=== PATIENT | female | born 1990 | race American Indian/Alaskan Native ===

== ENCOUNTER 2017-10-03 18:24 | Emergency (ER) | payer MEDICARE ==
[2017-10-03 21:38] LABS: Calcium 9.1 mg/dL (8.4-10.2)
[2017-10-03 22:10] LABS: Hematocrit 27.7 % (30.3-42.9); Hemoglobin 8.8 gm/dl (10.1-14.3); Mean Corpuscular HGB Conc 32 % (30-34); Mean Corpuscular Hemoglobin 30 pg (28-32); Mean Corpuscular Volume 94 fl (79-97); Platelet Count 227 K/mm3 (140-440); Red Blood Count 2.94 M/mm3 (3.65-5.03); Red Cell Distribution Width 18.6 % (13.2-15.2)
--- NOTE | 2017-10-04 07:17 | Emergency Department Report ---
HPI - General Chief Complaint: Medical Clearance Time Seen by Provider: 10/04/17 07:01 - HPI HPI: This is a 27-year-old female presents to the emergency department, sent in by a nurse at her dialysis center, with concern for low hemoglobin. The patient is end-stage renal disease on hemodialysis on Friday//Friday and had dialysis on . She was called yesterday, Friday, and told that her hemoglobin was 6.8 and that it would be too low for them to transfuse her today , Friday, and to go to the emergency department. Her social contact worker is Dr. Owens. She gets dialysis at [address] [place] [address]. She also has a past nuchal history of hypertension, asthma and lupus. She complains of some mild shortness of breath but denies any fever, cough, chest pain, nausea, vomiting or diaphoresis. No recent travel or sick contacts at home. ED Past Medical Hx - Past Medical History Hx Hypertension: Yes Hx Renal Disease: Yes (HD-graft in right arm(T,TH,SAT)) Hx Asthma: Yes Additional medical history: Lupus - Surgical History Additional Surgical History: graft - Social History Smoking Status: Current Every Day Smoker Substance Use Type: None ED Review of Systems ROS: Stated complaint: LOW BLOOD COUNT Other details as noted in HPI Comment: All other systems reviewed and negative Constitutional: denies: chills, fever Eyes: denies: eye pain, eye discharge, vision change ENT: denies: ear pain, throat pain Respiratory: shortness of breath. denies: cough Cardiovascular: denies: chest pain, palpitations Gastrointestinal: denies: abdominal pain, nausea, diarrhea Genitourinary: denies: urgency, dysuria, discharge Musculoskeletal: denies: back pain, joint swelling, arthralgia Skin: denies: rash, lesions Neurological: denies: headache, weakness, paresthesias Physical Exam - Physical Exam Vital Signs: Vital Signs 10/03/17 20:41 Temperature 97.9 F Pulse Rate 79 Respiratory 18 Rate Blood Pressure 162/96 O2 Sat by Pulse 100 Oximetry Physical Exam: GENERAL: The patient is well-developed well-nourished. HENT: Normocephalic. Atraumatic. Patient has moist mucous membranes. EYES: Extraocular motions are intact. Pupils equal reactive to light bilaterally. NECK: Supple. Trachea is midline. CHEST/LUNGS: Clear to auscultation. There is no respiratory distress noted. HEART/CARDIOVASCULAR: Regular. There is no tachycardia. There is no murmur. ABDOMEN: Abdomen is soft, nontender. Patient has normal bowel sounds. There is no abdominal distention. SKIN: Skin is warm and dry. NEURO: The patient is awake, alert, and oriented. The patient is cooperative. The patient has no focal neurologic deficits. The patient has normal speech. MUSCULOSKELETAL: There is no tenderness or deformity. There is no limitation range of motion. There is no evidence of acute injury. ED Course Vital Signs 10/03/17 20:41 Temperature 97.9 F Pulse Rate 79 Respiratory 18 Rate Blood Pressure 162/96 O2 Sat by Pulse 100 Oximetry - Consultations Consultation #1: I spoke with the social contact worker, Dr. Matthew, who is covering for Dr. Owens, who listened to the patient's current hemoglobin, the case presentation, and recommends that the patient be discharged to go to her dialysis appointment this morning as previously scheduled. 10/04/17 08:02 ED Medical Decision Making - Lab Data Result diagrams: 10/03/17 20:50 10/03/17 20:50 - Radiology Data Radiology results: image reviewed interpreted by me: Chest x-ray does not show any acute process. There are no pleural effusions, obvious pneumonia and there is no pneumothorax. - Medical Decision Making Patient presents after she was told to come to the emergency department by her dialysis center for a low hemoglobin of 6.8. It is unknown whether this lab value was from last Friday or , but rechecking the complete blood count today shows a hemoglobin of 8.8. The patient does not have any significant electrolyte abnormalities. Chest x-ray does not show any acute process including no signs of volume overload. Her vital signs are stable throughout her ED course including being afebrile and the patient does not appear in any respiratory distress. I spoke with the nephrology service who says the patient should be discharged to go to her dialysis session today. All this was explained to the patient understands and agrees to the plan. - Differential Diagnosis CHF, Hyperkalemia, symptomatic anemia Critical Care Time: No Critical care attestation.: If time is entered above; I have spent that time in minutes in the direct care of this critically ill patient, excluding procedure time. ED Disposition Clinical Impression: ESRD on dialysis Anemia in CKD (chronic kidney disease) Qualifiers: Chronic kidney disease stage: on chronic dialysis Qualified Code(s): N18.6 - End stage renal disease Disposition: DC- TO HOME OR SELFCARE Is pt being admited?: No Condition: Stable Instructions: Chronic Kidney Disease (ED) Additional Instructions: Please go and get dialysis today as previously scheduled. Follow-up with your social contact worker. Return to the emergency Department with any acute distress. Referrals: PRIMARY CARE, [Primary Care Provider] - SREEDHAR CARRERA MD [Staff Physician] - [facility] Time of Disposition: 07:44
[2017-10-04 11:05] VITALS: BP 165/106
--- NOTE | 2017-10-04 12:16 | XRay Report ---
FINAL REPORT EXAM: XR CHEST ROUTINE 2V HISTORY: SOB TECHNIQUE: Frontal and lateral chest radiographs. PRIORS: None. FINDINGS: The cardiac silhouette is mildly enlarged. There is suggestion of mild central pulmonary vascular congestion. No focal consolidation. No pleural effusion. No pneumothorax. No acute osseous abnormality. IMPRESSION: Mild cardiomegaly with findings suggesting mild central pulmonary vascular congestion.
== END 2017-10-04 08:10 | disposition home or self-care (01) ==
LOC: ED 18:24
DX: I12.0 Hypertensive chronic kidney disease with stage 5 chronic kidney disease or end stage renal disease (principal); N18.6 End stage renal disease; J45.909 Unspecified asthma, uncomplicated; F17.200 Nicotine dependence, unspecified, uncomplicated; Z99.2 Dependence on renal dialysis; Z88.1 Allergy status to other antibiotic agents; Z88.8 Allergy status to other drugs, medicaments and biological substances
CPT/HCPCS: 36415; 71046; 80048; 85027; 86850; 86870; 86900; 86901

== ENCOUNTER 2017-10-22 05:51 | Emergency (ER) | payer MEDICARE ==
[2017-10-22] MEDS ORDERED: ATIVAN ONE (06:26)
[2017-10-22] MEDS ORDERED: ATIVAN IM ONE (06:50)
[2017-10-22] MEDS ORDERED: KEPPRA PO ONE (06:55)
--- NOTE | 2017-10-22 06:55 | Emergency Department Report ---
ED Seizure HPI - General Chief Complaint: Seizure Stated Complaint: SEIZURE Time Seen by Provider: 10/22/17 06:40 Source: EMS Mode of arrival: Stretcher Limitations: No Limitations - History of Present Illness Initial Comments: Patient is a 27-year-old female history of end-stage renal disease on dialysis, history of seizure. Patient brought by EMS in active seizure that it started this morning. I have seen this patient several times before for the same complaint seizure usually starts immediately or the next day after DIALYSIS. Patient denied any new fever, she stated that she's been taking her medication as she is supposed to. MD Complaint: seizure -: Sudden Description of Episode: tonic-clonic movement, bowel incontinence, post-event confusion Witnessed:: Yes Seizure History: known seizure disorder Place: home Possible Precipitating Event: none Associated Symptoms: denies other symptoms Treatments Prior to Arrival: none - Related Data Home Medications Medication Instructions Recorded Confirmed Last Taken cloNIDine [Catapres] 0.3 mg PO TID 10/09/17 10/22/17 10/21/17 levETIRAcetam [Keppra TAB] 750 mg PO TID 10/09/17 10/22/17 10/19/17 Previous Rx's Medication Instructions Recorded Last Taken Type ALBUTEROL Inhaler [ProAir HFA 1 puff IH Q4H PRN 30 Days inha 09/05/17 10/21/17 Rx Inhaler] Furosemide [Lasix] 80 mg PO QDAY #30 tablet 09/05/17 10/21/17 Rx Phenytoin [Dilantin] 100 mg PO QHS #30 capsule.er 09/05/17 10/21/17 Rx hydrALAZINE [Apresoline TAB] 25 mg PO TID 30 Days tablet 09/05/17 10/21/17 Rx traMADol [Ultram 50 MG tab] 50 mg PO Q8H PRN #14 tablet 09/05/17 Unknown Rx predniSONE [Deltasone] 10 mg PO QDAY tablet 10/09/17 10/19/17 Rx Allergies Allergy/AdvReac Type Severity Reaction Status Date / Time acetaminophen [From Percocet] Allergy Itching Verified 10/22/17 06:50 metoprolol Allergy Unknown Verified 10/22/17 06:50 oxycodone [From Percocet] Allergy Itching Verified 10/22/17 06:50 oxycodone HCl [From Percocet] AdvReac Unknown Verified 10/22/17 06:50 ED Review of Systems ROS: Stated complaint: SEIZURE Other details as noted in HPI Comment: All other systems reviewed and negative Constitutional: denies: chills, fever Respiratory: denies: cough, orthopnea, shortness of breath Gastrointestinal: denies: abdominal pain, nausea, vomiting, diarrhea Neurological: denies: headache, weakness, numbness ED Past Medical Hx - Past Medical History Previous Medical History?: Yes Hx Hypertension: Yes Hx Heart Attack/AMI: No Hx Congestive Heart Failure: No Hx Diabetes: No Hx Deep Vein Thrombosis: No Hx Pulmonary Embolism: No Hx Liver Disease: No Hx Renal Disease: Yes Hx Sickle Cell Disease: No Hx Arthritis: Yes Hx Headaches / Migraines: Yes (3 nights) Hx Seizures: Yes Hx Kidney Stones: No Hx Asthma: Yes Hx COPD: No Hx Dementia: No Additional medical history: Lupus - Surgical History Past Surgical History?: Yes Hx Coronary Stent: No Hx Pacemaker: No Hx Internal Defibrillator: No Additional Surgical History: graft - Social History Smoking Status: Never Smoker Substance Use Type: None - Medications Home Medications: Home Medications Medication Instructions Recorded Confirmed Last Taken Type ALBUTEROL Inhaler [ProAir HFA 1 puff IH Q4H PRN 30 Days inha 09/05/17 10/22/17 10/21/17 Rx Inhaler] Furosemide [Lasix] 80 mg PO QDAY #30 tablet 09/05/17 10/22/17 10/21/17 Rx Phenytoin [Dilantin] 100 mg PO QHS #30 capsule.er 09/05/17 10/22/17 10/21/17 Rx hydrALAZINE [Apresoline TAB] 25 mg PO TID 30 Days tablet 09/05/17 10/22/17 Rx traMADol [Ultram 50 MG tab] 50 mg PO Q8H PRN #14 tablet 09/05/17 10/22/17 Unknown Rx cloNIDine [Catapres] 0.3 mg PO TID 10/09/17 10/22/17 10/21/17 History levETIRAcetam [Keppra TAB] 750 mg PO TID 10/09/17 10/22/17 10/19/17 History predniSONE [Deltasone] 10 mg PO QDAY tablet 10/09/17 10/22/17 10/19/17 Rx ED Physical Exam - General Limitations: No Limitations General appearance: alert, other (active seizure when patient presented to the ER) - Head Head exam: Present: atraumatic, normocephalic, normal inspection - Eye Eye exam: Present: normal appearance, PERRL - ENT ENT exam: Present: normal exam, normal orophraynx, mucous membranes moist - Neck Neck exam: Present: normal inspection, full ROM. Absent: tenderness, meningismus, lymphadenopathy - Respiratory Respiratory exam: Present: normal lung sounds bilaterally. Absent: respiratory distress, wheezes, rales, rhonchi, stridor, chest wall tenderness, accessory muscle use, decreased breath sounds, prolonged expiratory - Cardiovascular Cardiovascular Exam: Present: regular rate, normal rhythm, normal heart sounds - GI/Abdominal GI/Abdominal exam: Present: soft, normal bowel sounds. Absent: distended, tenderness, guarding, rebound, rigid, organomegaly, mass, bruit, pulsatile mass , hernia - Extremities Exam Extremities exam: Present: normal inspection, full ROM - Back Exam Back exam: Present: normal inspection - Neurological Exam Neurological exam: Present: alert, oriented X3, CN II-XII intact, normal gait - Skin Skin exam: Present: warm, intact, normal color. Absent: cyanosis, diaphoretic ED Course Vital Signs 10/22/17 06:44 Temperature 98.0 F Pulse Rate 89 Blood Pressure 135/95 O2 Sat by Pulse 100 Oximetry - Reevaluation(s) Reevaluation #1: 10/22/17 13:36 Discussed with Naomie, nurse practitioner was Dr. Garcia. I informed him about the patient in she stated that she will let Dr. Hardin know about the patient. ED Medical Decision Making - Lab Data Result diagrams: 10/22/17 09:09 10/22/17 09:09 - EKG Data -: EKG Interpreted by Me EKG shows normal: sinus rhythm - EKG Data Interpretation: no acute changes - Medical Decision Making Patient observed in the ER for more than 6 hour now, no seizure observed in the ER. 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 Critical care attestation.: If time is entered above; I have spent that time in minutes in the direct care of this critically ill patient, excluding procedure time. ED Disposition Clinical Impression: Seizure Disposition: DC-01 TO HOME OR SELFCARE Is pt being admited?: No Condition: Stable Referrals: EILEEN FERNANDEZ MD [Primary Care Provider] - 3-5 Days
[2017-10-22 09:34] LABS: Basophils % (Auto) 0.8 % (0.0-1.8); Eosinophils # (Auto) 0.1 K/mm3 (0.0-0.4); Eosinophils % (Auto) 2.5 % (0.0-4.3); Hematocrit 25.7 % (30.3-42.9); Hemoglobin 8.2 gm/dl (10.1-14.3); Lymphocytes # (Auto) 1.1 K/mm3 (1.2-5.4); Lymphocytes % (Auto) 24.4 % (13.4-35.0); Mean Corpuscular HGB Conc 32 % (30-34); Mean Corpuscular Hemoglobin 29 pg (28-32); Mean Corpuscular Volume 91 fl (79-97); Monocytes # (Auto) 0.5 K/mm3 (0.0-0.8); Monocytes % (Auto) 11.3 % (0.0-7.3); Platelet Count 289 K/mm3 (140-440); Red Blood Count 2.83 M/mm3 (3.65-5.03); Red Cell Distribution Width 17.2 % (13.2-15.2)
[2017-10-22 09:49] LABS: Alanine Aminotransferase 9 units/L (7-56); Albumin 3.3 g/dL (3.9-5); BUN/Creatinine Ratio 3; Blood Urea Nitrogen 18 mg/dL (7-17); Hemolysis Index 4
[2017-10-22 16:40] VITALS: BP 143/86
== END 2017-10-22 14:15 | disposition home or self-care (01) ==
LOC: ED 05:51
DX: R56.9 Unspecified convulsions (principal); I10 Essential (primary) hypertension; G43.909 Migraine, unspecified, not intractable, without status migrainosus; J45.909 Unspecified asthma, uncomplicated
CPT/HCPCS: 36415; 80053; 85025; 93005; 93010; 96372; 99284; J2060

== ENCOUNTER 2017-12-01 03:17 | Emergency (ER) | payer MEDICARE ==
[2017-12-01 04:17] LABS: Basophils % (Auto) 0.4 % (0.0-1.8); Eosinophils # (Auto) 0.2 K/mm3 (0.0-0.4); Eosinophils % (Auto) 3.3 % (0.0-4.3); Hematocrit 25.9 % (30.3-42.9); Hemoglobin 8.2 gm/dl (10.1-14.3); Lymphocytes # (Auto) 0.7 K/mm3 (1.2-5.4); Lymphocytes % (Auto) 13.2 % (13.4-35.0); Mean Corpuscular HGB Conc 32 % (30-34); Mean Corpuscular Hemoglobin 29 pg (28-32); Mean Corpuscular Volume 91 fl (79-97); Monocytes # (Auto) 0.6 K/mm3 (0.0-0.8); Platelet Count 324 K/mm3 (140-440); Red Blood Count 2.84 M/mm3 (3.65-5.03)
[2017-12-01 04:32] LABS: Albumin 3.2 g/dL (3.9-5); BUN/Creatinine Ratio 3; Blood Urea Nitrogen 25 mg/dL (7-17); Calcium 9.4 mg/dL (8.4-10.2); Hemolysis Index 3
[2017-12-01 04:35] LABS: Alanine Aminotransferase < 5 units/L (7-56)
[2017-12-01 04:38] LABS: Red Cell Distribution Width 20.1 % (13.2-15.2)
[2017-12-01] MEDS ORDERED: ZOFRAN ODT PO ONE (06:50)
--- NOTE | 2017-12-01 07:04 | Emergency Department Report ---
HPI - General Chief Complaint: Nausea/Vomiting/Diarrhea Time Seen by Provider: 12/01/17 06:33 - HPI HPI: 27-year-old female presents to the emergency department with complaint of some nausea, vomiting, body aches and dizziness that started late last night. She says that she was unable to eat her breakfast this morning because of these symptoms and felt like she might pass out. She says that she was "shaking in my bed" and that I was was calling out for her grandmother but she did not hear her at first but eventually EMS was called. She denies any fever, shortness of breath, chest pain. She has a history of end-stage renal disease on hemodialysis on Friday//Friday., Migraine headaches, hypertension, seizures, lupus. Her mds rn is Dr. Owens. She does currently have a primary care physician. Patient was recently admitted and discharged from [facility] on 11/24 - 11/25 with a history of uncontrolled blood pressure, nausea, vomiting. ED Past Medical Hx - Past Medical History Previous Medical History?: Yes Hx Hypertension: Yes Hx Heart Attack/AMI: No Hx Congestive Heart Failure: No Hx Diabetes: No Hx Deep Vein Thrombosis: No Hx Pulmonary Embolism: No Hx Liver Disease: No Hx Renal Disease: Yes Hx Sickle Cell Disease: No Hx Arthritis: Yes Hx Headaches / Migraines: Yes Hx Seizures: Yes Hx Kidney Stones: No Hx Asthma: Yes Hx COPD: No Hx Dementia: No Additional medical history: Lupus - Surgical History Past Surgical History?: Yes Hx Coronary Stent: No Hx Pacemaker: No Hx Internal Defibrillator: No Additional Surgical History: graft - Social History Smoking Status: Never Smoker Substance Use Type: None - Medications Home Medications: Home Medications Medication Instructions Recorded Confirmed Last Taken Type ALBUTEROL Inhaler [ProAir HFA 1 puff IH Q4H PRN 30 Days inha 09/05/17 11/24/17 10/21/17 Rx Inhaler] Furosemide [Lasix] 80 mg PO QDAY #30 tablet 09/05/17 11/24/17 10/21/17 Rx Phenytoin [Dilantin] 100 mg PO QHS #30 capsule.er 09/05/17 11/24/17 10/21/17 Rx hydrALAZINE [Apresoline TAB] 25 mg PO TID 30 Days tablet 09/05/17 11/24/17 Rx cloNIDine [Catapres] 0.3 mg PO TID 10/09/17 11/24/17 11/23/17 History levETIRAcetam [Keppra TAB] 750 mg PO TID 10/09/17 11/24/17 10/19/17 History predniSONE [Deltasone] 10 mg PO QDAY tablet 10/09/17 11/24/17 10/19/17 Rx Labetalol [Normodyne TAB] 200 mg PO TID 11/24/17 11/24/17 11/23/17 History ALBUTEROL NEB's [Proventil 0.083% 2.5 mg IH Q4HRT PRN #100 nebu 11/25/17 Unknown Rx NEBS] cloNIDine [Catapres] 0.3 mg PO TID tablet 11/25/17 Unknown Rx diphenhydrAMINE [Benadryl CAP] 25 mg PO QID PRN capsule 11/25/17 Unknown Rx hydrALAZINE [Apresoline TAB] 25 mg PO TID tablet 11/25/17 Unknown Rx Ondansetron [Zofran Odt] 4 mg PO Q8H PRN #10 tab.rapdis 12/01/17 Unknown Rx traMADol [Ultram 50 MG tab] 50 mg PO Q8H PRN #10 tablet 12/01/17 Unknown Rx ED Review of Systems ROS: Stated complaint: FLU SX Other details as noted in HPI Comment: All other systems reviewed and negative Constitutional: denies: chills, fever Eyes: denies: eye pain, eye discharge, vision change ENT: denies: ear pain, throat pain Respiratory: denies: cough, shortness of breath, wheezing Cardiovascular: denies: chest pain, palpitations Gastrointestinal: abdominal pain, nausea, vomiting Genitourinary: denies: urgency, dysuria, discharge Musculoskeletal: denies: back pain, joint swelling, arthralgia Skin: denies: rash, lesions Neurological: other (dizziness). denies: headache, weakness Physical Exam - Physical Exam Vital Signs: Vital Signs 12/01/17 03:50 Temperature 99.0 F Pulse Rate 64 Respiratory 17 Rate Blood Pressure 167/108 O2 Sat by Pulse 99 Oximetry ED Course Vital Signs 12/01/17 03:50 Temperature 99.0 F Pulse Rate 64 Respiratory 17 Rate Blood Pressure 167/108 O2 Sat by Pulse 99 Oximetry ED Medical Decision Making - Lab Data Result diagrams: 12/01/17 04:02 12/01/17 04:02 - EKG Data -: EKG Interpreted by Me EKG shows normal: sinus rhythm, axis (borderline left axis deviation), intervals , QRS complexes (LVH), ST-T waves Rate: normal - EKG Data When compared to previous EKG there are: no significant change Interpretation: unchanged when compared t (10/16/17) Critical care attestation.: If time is entered above; I have spent that time in minutes in the direct care of this critically ill patient, excluding procedure time. ED Disposition Clinical Impression: ESRD (end stage renal disease), Body aches Nausea & vomiting Qualifiers: Vomiting type: unspecified Vomiting Intractability: non-intractable Qualified Code(s): R11.2 - Nausea with vomiting, unspecified HTN (hypertension) Qualifiers: Hypertension type: essential hypertension Qualified Code(s): I10 - Essential ( primary) hypertension Disposition: TO HOME OR SELFCARE Is pt being admited?: No Condition: Stable Instructions: Chronic Kidney Disease (ED), Musculoskeletal Pain (ED), Acute Nausea and Vomiting (ED), Hypertension (ED) Additional Instructions: Please follow up with a primary care physician in the next few days. I have given him multiple different referrals for primary care. Please continue with her normal dialysis regiment and follow-up with your mds rn/kidney doctor. Return to the emergency Department with any worsening of your symptoms or any acute distress. You have been prescribed a medication that is sedating and therefore should not be taken prior to driving, working, and responsible for children and in no way should be mixed with alcohol of any quantity. Please make sure to take your blood pressure medication. Try and stay away from foods that are high in salt caffeinated products to help with her blood pressure. Keep a blood pressure log. Prescriptions: Ondansetron [Zofran Odt] 4 mg PO Q8H PRN #10 tab.rapdis PRN Reason: Nausea traMADol [Ultram 50 MG tab] 50 mg PO Q8H PRN #10 tablet PRN Reason: Pain Referrals: EILEEN FERNANDEZ MD [Primary Care Provider] - 3-5 Days NIRMALA GALVAN MD [Staff Physician] - 3-5 Days [facility] [Outside] - 3-5 Days SREEDHAR MENJIVAR MD [Staff Physician] - [facility] Time of Disposition: 12:14
[2017-12-01] MEDS ORDERED: ULTRAM PO ONE (07:54)
--- NOTE | 2017-12-01 08:28 | XRay Report ---
ABDOMINAL SERIES: History: Abdominal pain. Compared to the abdominal x-rays performed 11/24/17. Single view of the chest demonstrates mild cardiomegaly and central pulmonary venous congestion which appears slightly improved since the previous exam. No evidence for pneumonia, CHF or pneumothorax. Upright and decubitus views of the abdomen demonstrate moderate stool in the colon. No evidence for dilated bowel, fluid levels or pathologic calcifications. The bony structures are intact. IMPRESSION: Mild cardiomegaly and pulmonary venous congestion. Mild fecal retention. No acute abdominal process identified.
[2017-12-01] MEDS ORDERED: ZOFRAN IV ONE (09:42)
[2017-12-01 13:10] VITALS: BP 167/99
== END 2017-12-01 13:12 | disposition home or self-care (01) ==
LOC: ED 03:17
DX: I12.0 Hypertensive chronic kidney disease with stage 5 chronic kidney disease or end stage renal disease (principal); N18.6 End stage renal disease; M79.1 Myalgia; R42 Dizziness and giddiness; M19.90 Unspecified osteoarthritis, unspecified site; G43.909 Migraine, unspecified, not intractable, without status migrainosus; M32.9 Systemic lupus erythematosus, unspecified; Z99.2 Dependence on renal dialysis; Z88.6 Allergy status to analgesic agent; Z88.5 Allergy status to narcotic agent
CPT/HCPCS: 36415; 74022; 80053; 84443; 84484; 84703; 85025; 93005; 93010; 96374; 99284; J2405; Q0162

== ENCOUNTER 2018-01-01 16:23 | Inpatient (IN) | payer MEDICARE ==
[2018-01-01] MEDS ORDERED: ATIVAN ONE (16:53)
[2018-01-01] MEDS ORDERED: ATIVAN IV ONE (16:57)
[2018-01-01] MEDS ORDERED: APRESOLINE IV ONE ×2 (16:58→20:00)
[2018-01-01] MEDS ORDERED: APRESOLINE ONE (16:59)
--- NOTE | 2018-01-01 17:03 | Emergency Department Report ---
ED Seizure HPI - General Stated Complaint: SEIZURES Time Seen by Provider: 01/01/18 16:56 - History of Present Illness Initial Comments: Patient is 27-year-old female with history of end-stage renal disease on hemodialysis, lupus and seizure. Patient brought in by EMS with active grand mal seizure. Patient patient is actively seizing. Patient received 10 mg of Versed intranasally because EMS could not get venous access. Patient just finished dialysis. MD Complaint: seizure -: Sudden Description of Episode: loss of consciousness, tonic-clonic movement, post- event confusion Witnessed:: Yes Trauma: No Seizure History: known seizure disorder Place: street/outdoors Possible Precipitating Event: none Treatments Prior to Arrival: benzodiazepines - Related Data Home Medications Medication Instructions Recorded Confirmed Last Taken cloNIDine [Catapres] 0.3 mg PO TID 10/09/17 11/24/17 11/23/17 levETIRAcetam [Keppra TAB] 750 mg PO TID 10/09/17 11/24/17 10/19/17 Labetalol [Normodyne TAB] 200 mg PO TID 11/24/17 11/24/17 11/23/17 Previous Rx's Medication Instructions Recorded Last Taken Type ALBUTEROL Inhaler [ProAir HFA 1 puff IH Q4H PRN 30 Days inha 09/05/17 10/21/17 Rx Inhaler] Furosemide [Lasix] 80 mg PO QDAY #30 tablet 09/05/17 10/21/17 Rx Phenytoin [Dilantin] 100 mg PO QHS #30 capsule.er 09/05/17 10/21/17 Rx hydrALAZINE [Apresoline TAB] 25 mg PO TID 30 Days tablet 09/05/17 11/23/17 Rx predniSONE [Deltasone] 10 mg PO QDAY tablet 10/09/17 10/19/17 Rx ALBUTEROL NEB's [Proventil 0.083% 2.5 mg IH Q4HRT PRN #100 nebu 11/25/17 Unknown Rx NEBS] cloNIDine [Catapres] 0.3 mg PO TID tablet 11/25/17 Unknown Rx diphenhydrAMINE [Benadryl CAP] 25 mg PO QID PRN capsule 11/25/17 Unknown Rx hydrALAZINE [Apresoline TAB] 25 mg PO TID tablet 11/25/17 Unknown Rx Ondansetron [Zofran Odt] 4 mg PO Q8H PRN #10 tab.rapdis 12/01/17 Unknown Rx traMADol [Ultram 50 MG tab] 50 mg PO Q8H PRN #10 tablet 12/01/17 Unknown Rx Allergies Allergy/AdvReac Type Severity Reaction Status Date / Time acetaminophen [From Percocet] Allergy Itching Verified 10/22/17 06:50 metoprolol Allergy Unknown Verified 10/22/17 06:50 oxycodone [From Percocet] Allergy Itching Verified 10/22/17 06:50 oxycodone HCl [From Percocet] AdvReac Unknown Verified 10/22/17 06:50 ED Review of Systems ROS: Stated complaint: SEIZURES Other details as noted in HPI Comment: Unobtainable due to pts medical conditions ED Past Medical Hx - Past Medical History Hx Hypertension: Yes Hx Heart Attack/AMI: No Hx Congestive Heart Failure: No Hx Diabetes: No Hx Deep Vein Thrombosis: No Hx Pulmonary Embolism: No Hx Liver Disease: No Hx Renal Disease: Yes Hx Sickle Cell Disease: No Hx Arthritis: Yes Hx Headaches / Migraines: Yes Hx Seizures: Yes Hx Kidney Stones: No Hx Asthma: Yes Hx COPD: No Hx Dementia: No Additional medical history: Lupus - Surgical History Hx Coronary Stent: No Hx Pacemaker: No Hx Internal Defibrillator: No Additional Surgical History: graft - Social History Smoking Status: Never Smoker Substance Use Type: None - Medications Home Medications: Home Medications Medication Instructions Recorded Confirmed Last Taken Type ALBUTEROL Inhaler [ProAir HFA 1 puff IH Q4H PRN 30 Days inha 09/05/17 11/24/17 10/21/17 Rx Inhaler] Furosemide [Lasix] 80 mg PO QDAY #30 tablet 09/05/17 11/24/17 10/21/17 Rx Phenytoin [Dilantin] 100 mg PO QHS #30 capsule.er 09/05/17 11/24/17 10/21/17 Rx hydrALAZINE [Apresoline TAB] 25 mg PO TID 30 Days tablet 09/05/17 11/24/17 Rx cloNIDine [Catapres] 0.3 mg PO TID 10/09/17 11/24/17 11/23/17 History levETIRAcetam [Keppra TAB] 750 mg PO TID 10/09/17 11/24/17 10/19/17 History predniSONE [Deltasone] 10 mg PO QDAY tablet 10/09/17 11/24/17 10/19/17 Rx Labetalol [Normodyne TAB] 200 mg PO TID 11/24/17 11/24/17 11/23/17 History ALBUTEROL NEB's [Proventil 0.083% 2.5 mg IH Q4HRT PRN #100 nebu 11/25/17 Unknown Rx NEBS] cloNIDine [Catapres] 0.3 mg PO TID tablet 11/25/17 Unknown Rx diphenhydrAMINE [Benadryl CAP] 25 mg PO QID PRN capsule 11/25/17 Unknown Rx hydrALAZINE [Apresoline TAB] 25 mg PO TID tablet 11/25/17 Unknown Rx Ondansetron [Zofran Odt] 4 mg PO Q8H PRN #10 tab.rapdis 12/01/17 Unknown Rx traMADol [Ultram 50 MG tab] 50 mg PO Q8H PRN #10 tablet 12/01/17 Unknown Rx ED Physical Exam - General General appearance: other (actively seizing) - Head Head exam: Present: atraumatic, normocephalic, normal inspection - Eye Eye exam: Present: normal appearance, PERRL - ENT ENT exam: Present: normal exam, normal orophraynx, mucous membranes moist - Neck Neck exam: Present: normal inspection, full ROM. Absent: tenderness, meningismus, lymphadenopathy, thyromegaly - Respiratory Respiratory exam: Present: normal lung sounds bilaterally. Absent: respiratory distress, wheezes, rales, rhonchi, chest wall tenderness, accessory muscle use, decreased breath sounds, prolonged expiratory - Cardiovascular Cardiovascular Exam: Present: regular rate, normal rhythm, normal heart sounds - GI/Abdominal GI/Abdominal exam: Present: soft, normal bowel sounds. Absent: distended, tenderness, guarding, rebound, rigid, organomegaly, mass, bruit, pulsatile mass - Extremities Exam Extremities exam: Present: normal inspection, full ROM, normal capillary refill - Back Exam Back exam: Present: normal inspection, full ROM. Absent: tenderness, CVA tenderness (R), CVA tenderness (L), paraspinal tenderness - Skin Skin exam: Present: warm, intact ED Course Vital Signs 01/01/18 01/01/18 01/01/18 16:32 16:46 16:57 Temperature 97.9 F Pulse Rate 108 H Respiratory 22 Rate Blood Pressure 204/129 204/129 204/129 Blood Pressure [Left] O2 Sat by Pulse 83 L 94 Oximetry 01/01/18 01/01/18 01/01/18 17:04 17:10 17:45 Temperature 97.9 F Pulse Rate 112 H 112 H Respiratory 22 Rate Blood Pressure 188/113 188/113 197/123 Blood Pressure 188/113 [Left] O2 Sat by Pulse 95 Oximetry 01/01/18 01/01/18 01/01/18 18:00 18:15 18:30 Temperature Pulse Rate Respiratory Rate Blood Pressure 177/115 175/116 186/113 Blood Pressure [Left] O2 Sat by Pulse 100 100 100 Oximetry 01/01/18 01/01/18 01/01/18 18:45 19:00 19:15 Temperature Pulse Rate Respiratory Rate Blood Pressure 181/113 190/115 193/119 Blood Pressure [Left] O2 Sat by Pulse 100 100 100 Oximetry 01/01/18 01/01/18 01/01/18 19:30 19:45 20:00 Temperature Pulse Rate 120 H 120 H 128 H Respiratory 20 25 H 9 L Rate Blood Pressure 187/123 184/112 182/112 Blood Pressure [Left] O2 Sat by Pulse 100 100 100 Oximetry 01/01/18 01/01/18 01/01/18 20:15 20:30 20:45 Temperature Pulse Rate 128 H 135 H Respiratory 26 H 30 H 15 Rate Blood Pressure 167/99 162/96 157/97 Blood Pressure [Left] O2 Sat by Pulse 100 100 100 Oximetry 01/01/18 01/01/18 01/01/18 21:00 21:15 21:30 Temperature Pulse Rate Respiratory 53 H 16 17 Rate Blood Pressure 172/100 158/100 154/92 Blood Pressure [Left] O2 Sat by Pulse 100 100 100 Oximetry 01/01/18 01/01/18 01/01/18 21:45 22:00 22:16 Temperature Pulse Rate 120 H Respiratory 29 H 25 H 20 Rate Blood Pressure 169/101 161/98 165/103 Blood Pressure [Left] O2 Sat by Pulse 100 89 Oximetry 01/01/18 01/01/18 01/01/18 22:30 22:45 23:00 Temperature Pulse Rate Respiratory Rate Blood Pressure 174/108 179/105 163/102 Blood Pressure [Left] O2 Sat by Pulse 95 100 Oximetry ED Medical Decision Making - Lab Data Result diagrams: 01/01/18 17:01 01/01/18 17:01 - EKG Data -: EKG Interpreted by Pa EKG shows normal: sinus rhythm Rate: tachycardia - EKG Data Interpretation: no acute changes - Radiology Data Radiology results: report reviewed Referring Physician: RAVIN WONG Patient Name: SANDRA DICKEY Date of : 1990 Sex: Female Report Date: 2018-01-01 Report Status: [place] [address] Cat Scan Report Signed Patient: SANDRA DICKEY MR#: [id number] : 1990 Acct:[id number] Age/Sex: 27 / F ADM Date: 01/01/18 Loc: ED Attending Dr: Ordering Physician: RAVIN WONG Date of Service: 01/01/18 Procedure(s): CT head/brain wo con Accession Number(s): [id number] cc: RAVIN WONG FINAL REPORT EXAM: CT HEAD/BRAIN WO CON HISTORY: Seizure/ AMS/ HIGH BP TECHNIQUE: CT examination of the head without IV contrast PRIORS: None. FINDINGS: No acute air-fluid level visualized in the included air-filled sinuses. Bone windows demonstrate no acute fracture. The brain is without mass, mass effect, hemorrhage, or acute infarct. There is no extra-axial intracranial bleed, brain bleed, or midline shift. The ventricles and sulci are age-appropriate. IMPRESSION: No acute CVA, intracranial bleed, or brain mass Transcribed By: BAL Dictated By: NANCY JIMENEZ MD Electronically Authenticated By: NANCY JIMENEZ MD Signed Date/Time: 01/01/18 174 Referring Physician: RAVIN WONG Patient Name: SANDRA DICKEY Date of : 1990 Sex: Female Report Date: 2018-01-01 Report Status: Finalized Findings [facility] [address] [place] [address] XRay Report Signed Patient: SANDRA DICKEY MR#: [id number] : 1990 Acct:[id number] Age/Sex: 27 / F ADM Date: 01/01/18 Loc: ED Attending Dr: Ordering Physician: RAVIN WONG Date of Service: 01/01/18 Procedure(s): XR chest 1V ap Accession Number(s): [id number] cc: RAVIN WONG Fluoro Time In Minutes: FINAL REPORT PROCEDURE: XR CHEST 1V AP TECHNIQUE: Chest radiograph anteroposterior view. CPT 27466 HISTORY: volume overload COMPARISON: 10/14/2017 FINDINGS: Heart: Cardiac size is upper limit of normal. Main pulmonary artery is prominent.. Mediastinum/Vessels: Prominent central pulmonary arterial structures are noted. Lungs/Pleural space: Normal. Bony thorax: No acute osseous abnormality. Life support devices: None. IMPRESSION: Findings are most consistent with pulmonary arterial hypertension.. Transcribed By: [facility] Dictated By: MARQUEZ SIERRA Electronically Authenticated By: MARQUEZ SIERRA Signed Date/Time: 01/01/182203 DD/ 03 TD/TT: 01/01/182203 DD/ 42 TD/TT: 01/01/181742 - Medical Decision Making Discuss with Dr Baxter, he agreed to admit to his service. Critical Care Time: Yes Critical care time in (mins) excluding proc time.: 30 Critical care attestation.: If time is entered above; I have spent that time in minutes in the direct care of this critically ill patient, excluding procedure time. ED Disposition Clinical Impression: Seizure, Hypertensive emergency Disposition: -09 OP ADMIT IP TO THIS HOSP Is pt being admited?: Yes Condition: Stable Instructions: Hypertension (ED) Referrals: PRIMARY CARE,MD [Primary Care Provider] - 3-5 Days
[2018-01-01 17:31] LABS: Albumin 3.8 g/dL (3.9-5); BUN/Creatinine Ratio 4; Blood Urea Nitrogen 13 mg/dL (7-17); Calcium 9.1 mg/dL (8.4-10.2); Hemolysis Index 93
[2018-01-01 17:37] LABS: Alanine Aminotransferase < 5 units/L (7-56)
[2018-01-01 17:39] LABS: Basophils % (Auto) 0.5 % (0.0-1.8); Eosinophils # (Auto) 0.1 K/mm3 (0.0-0.4); Eosinophils % (Auto) 1.4 % (0.0-4.3); Hematocrit 31.3 % (30.3-42.9); Hemoglobin 10.1 gm/dl (10.1-14.3); Lymphocytes % (Auto) 15.1 % (13.4-35.0); Mean Corpuscular HGB Conc 32 % (30-34); Mean Corpuscular Hemoglobin 27 pg (28-32); Mean Corpuscular Volume 85 fl (79-97); Monocytes # (Auto) 0.7 K/mm3 (0.0-0.8); Monocytes % (Auto) 10.4 % (0.0-7.3); Platelet Count 434 K/mm3 (140-440); Red Blood Count 3.68 M/mm3 (3.65-5.03); Red Cell Distribution Width 19.9 % (13.2-15.2)
--- NOTE | 2018-01-01 17:48 | Cat Scan Report ---
FINAL REPORT EXAM: CT HEAD/BRAIN WO CON HISTORY: Seizure/ AMS/ HIGH BP TECHNIQUE: CT examination of the head without IV contrast PRIORS: None. FINDINGS: No acute air-fluid level visualized in the included air-filled sinuses. Bone windows demonstrate no acute fracture. The brain is without mass, mass effect, hemorrhage, or acute infarct. There is no extra-axial intracranial bleed, brain bleed, or midline shift. The ventricles and sulci are age-appropriate. IMPRESSION: No acute CVA, intracranial bleed, or brain mass
[2018-01-01] MEDS ORDERED: KEPPRA 500 MG in D5W 100 ML IV ONE (18:00)
[2018-01-01] MEDS ORDERED: NORMODYNE IV ONE ×2 (21:13→21:17)
--- NOTE | 2018-01-01 22:09 | XRay Report ---
FINAL REPORT PROCEDURE: XR CHEST 1V AP TECHNIQUE: Chest radiograph anteroposterior view. CPT 55741 HISTORY: volume overload COMPARISON: 10/14/2017 FINDINGS: Heart: Cardiac size is upper limit of normal. Main pulmonary artery is prominent.. Mediastinum/Vessels: Prominent central pulmonary arterial structures are noted. Lungs/Pleural space: Normal. Bony thorax: No acute osseous abnormality. Life support devices: None. IMPRESSION: Findings are most consistent with pulmonary arterial hypertension..
[2018-01-01] MEDS ORDERED: MOTRIN PO ONE (22:25)
[2018-01-01] MEDS ORDERED: ATIVAN IV PRN (23:44)
[2018-01-01] MEDS ORDERED: APRESOLINE IV PRN (23:45)
[2018-01-01] MEDS ORDERED: MOTRIN PO PRN (23:48)
[2018-01-01] MEDS ORDERED: PROVENTIL IH PRN (23:49)
[2018-01-01] MEDS ORDERED: PROAIR IH PRN (23:49)
[2018-01-02] MEDS: HEPARIN SUB-Q SCH ×3 (00:33→21:46)
[2018-01-02] MEDS ORDERED: ULTRAM PO PRN (05:39)
[2018-01-02 06:26] LABS: Calcium 8.9 mg/dL (8.4-10.2)
--- NOTE | 2018-01-02 06:59 | History and Physical Report ---
CHIEF COMPLAINT: Seizure attack. HISTORY OF PRESENT ILLNESS: The patient is a 27-year-old female with end-stage renal disease, on dialysis, who went for dialysis and after that, started having seizure attack at home. The patient was subsequently brought in by EMS actively seizing and received intranasal Versed given by EMS en route to the hospital because they could not get an IV access. There was no history of fever or chills and no history of nausea or vomiting. The patient was seen in the emergency room, evaluated, treated, and presented for admission. PAST MEDICAL HISTORY: Pertinent for hypertension, also the patient has past history of migraine headaches, seizure disorder, asthma, lupus erythematosus, and end-stage renal disease, on dialysis. PAST SURGICAL HISTORY: Pertinent for dialysis graft. FAMILY HISTORY: Noncontributory. SOCIAL HISTORY: The patient does not drink, does not drink alcohol, and does not use illicit drugs. MEDICATIONS: The patient is on albuterol inhaler one puff every four hours as needed for shortness of breath. The patient is also on Lasix 80 mg by mouth daily, Dilantin 100 mg by mouth at bedtime, hydralazine 25 mg by mouth three times a daily, clonidine or Catapres 0.3 mg by mouth 3 times daily, Keppra 750 mg by mouth twice daily, prednisone 10 mg by mouth daily. The patient is also on labetalol 200 mg by mouth 3 times daily and albuterol nebulizer every 4 hours as needed for shortness of breath. The patient is on Benadryl 25 mg by mouth 4 times daily, hydralazine 25 mg by mouth 3 times daily. The patient is also on Zofran 4 mg by mouth every 8 hours as needed for nausea and vomiting, and tramadol 50 mg by mouth every 8 hours. ALLERGIES: The patient is allergic to ACETAMINOPHEN, METOPROLOL, and OXYCODONE. REVIEW OF SYSTEMS: CONSTITUTIONAL: There is no fever, no chills, no diaphoresis. HEENT: There is no headache or sore throat. CARDIOVASCULAR SYSTEM: There is no chest pain, orthopnea. RESPIRATORY SYSTEM: There is no shortness of breath or cough. GASTROINTESTINAL SYSTEM: There is no nausea, no vomiting, no abdominal pain, diarrhea or dysuria. NEUROLOGICAL SYSTEM: There is no numbness, no dizziness, no altered mental status with a seizure disorder. MUSCULOSKELETAL SYSTEM: There is no joint pain or swelling. DERMATOLOGICAL SYSTEM: There is no skin rash or itching. GENITOURINARY SYSTEM: There is dysuria, but no hematuria or flank pain. Rest of system review is normal. PHYSICAL EXAMINATION: GENERAL: At the time of exam, the patient will need to be alert, oriented x 3, not in acute disease. VITAL SIGNS: Initial vital signs at the time of presentation showed a temperature of 97.9 degrees Fahrenheit, pulse of 108, respirations 22, blood pressure 204/129, O2 sat of 94% on room air. HEENT: Exam showed pupils are equal, round, reactive to light and accommodation. Extraocular muscles are intact. NECK: Supple with no JVD or carotid bruits. CARDIOVASCULAR SYSTEM: Showed normal first and second heart sounds with no gallops or murmur. RESPIRATORY SYSTEM: Show good air entry on both sides of the lungs with no abnormal breath sounds. GASTROINTESTINAL SYSTEM: Show abdomen to be soft, nontender with no organomegaly or rigidity. NEUROLOGIC SYSTEM: Exam showed no focal deficit. MUSCULOSKELETAL SYSTEM: Showed no joint swelling or tenderness. DERMATOLOGIC SYSTEM: Showed no skin rash. GENITOURINARY SYSTEM: Showed no costovertebral angle tenderness. PERTINENT LABORATORY AND IMAGING STUDIES: The patient's CBC showed normal white count, normal hemoglobin and normal hematocrit with CBC with differential being unremarkable except for elevated segmented neutrophils 72.6%. The patient's chemistry shows slightly decreased sodium level of 134, with slightly decreased chloride level of 97.9, with elevated creatinine of 3.1, consistent with the patient's end-stage renal disease, on dialysis. IMAGING STUDIES: The patient had CT of the head without contrast done that shows no active CVA, no intracranial bleed or . Also, the patient had chest x-ray done that showed findings that are most consistent with pulmonary arterial hypertension. DIAGNOSES: 1. Seizure attack or seizure disorder. 2. Hypertensive crisis. 3. Pulmonary hypertension. PLAN: The patient will be admitted to medical floor on telemetry. Deep venous thrombosis prophylaxis will be through sequential compressive device as well as heparin 5000 units subcutaneous every 12 hours. The patient will be on intravenous lorazepam 1 mg every 2 hours as needed for seizure attack and also the patient will be on hydralazine 10 mg intravenous every 4 hours for systolic blood pressure above 150 mmHg. The patient will have neurology consult with the on-call neurologist Dr. Kenroy Brothers and also the patient will have Nephrology consult with Dr. Mcgrath because of end-stage renal disease. The patient's home medications will be reconciled and started as shown in the medication reconciliation sheet, which includes Keppra and Dilantin, which the patient was taken prior to presentation. The patient will have basic metabolic panel done this morning. The patient's diet will be 2 g sodium diet. JOB# [id number] OCN/NTS
[2018-01-02] MEDS ORDERED: KEPPRA PO SCH (08:00)
[2018-01-02] MEDS: CATAPRES PO SCH ×6 (10:30→19:13)
[2018-01-02] MEDS: DELTASONE PO SCH (10:30)
[2018-01-02] MEDS: LASIX PO SCH (10:30)
[2018-01-02] MEDS: ZOLOFT PO SCH (10:30)
[2018-01-02] MEDS: NORMODYNE PO SCH ×3 (10:30→19:13)
[2018-01-02] MEDS ORDERED: HEPARIN 10,000 UNITS/10 ML IV PRN (12:52)
[2018-01-02] MEDS ORDERED: PROCRIT IV PRN (12:52)
[2018-01-02] MEDS ORDERED: NACL 0.9% 100 ML IV PRN (12:52)
--- NOTE | 2018-01-02 12:55 | Consultation ---
History of Present Illness - Reason for Consult Consult date: 01/02/18 end stage renal disease - History of Present Illness Mrs. Turner is a 27yo with hx of ESRD on HD TTS, SLE and seizure disorder who presented to the ED w/ seizure activity at home. She reports that she remembers getting out of car when she noticed right leg weakness followed by shaking. Patient w/ tonic-clonic seizure activity per EMS. She was given Versed 10 mg intranasally and transported to the ED. Past History Past Medical History: ESRD, hypertension, seizures, other (SLE) Past Surgical History: Other (AV access) Social history: no significant social history Family history: no significant family history Medications and Allergies Allergies Allergy/AdvReac Type Severity Reaction Status Date / Time acetaminophen [From Percocet] Allergy Itching Verified 10/22/17 06:50 metoprolol Allergy Unknown Verified 10/22/17 06:50 oxycodone [From Percocet] Allergy Itching Verified 10/22/17 06:50 oxycodone HCl [From Percocet] AdvReac Unknown Verified 10/22/17 06:50 Home Medications Medication Instructions Recorded Confirmed Last Taken Type Furosemide [Lasix] 80 mg PO QDAY #30 tablet 09/05/17 01/02/18 2 Days Ago Rx ~12/31/17 hydrALAZINE [Apresoline TAB] 25 mg PO TID 30 Days tablet 09/05/17 01/02/18 2 Days Ago Rx ~12/31/17 cloNIDine [Catapres] 0.3 mg PO TID 10/09/17 01/02/18 2 Days Ago History ~12/31/17 levETIRAcetam [Keppra TAB] 750 mg PO TID 10/09/17 01/02/18 2 Days Ago History ~12/31/17 Labetalol [Normodyne TAB] 200 mg PO TID 11/24/17 01/02/18 2 Days Ago History ~12/31/17 ALBUTEROL NEB's [Proventil 0.083% 2.5 mg IH Q4HRT PRN #100 nebu 11/25/17 2 Days Ago Rx NEBS] ~12/31/17 Active Meds: Active Medications Albuterol (Proventil) 2.5 mg IH Q4HRT PRN PRN Reason: Shortness Of Breath Clonidine HCl (Catapres) 0.1 mg PO TID FERNANDO Clonidine HCl (Catapres) 0.2 mg PO TID FERNANDO Diphenhydramine HCl (Benadryl) 25 mg PO QID PRN PRN Reason: Itching Furosemide (Lasix) 80 mg PO QDAY FERNANDO Heparin Sodium (Porcine) (Heparin) 5,000 unit SUB-Q Q12HR FERNANDO Last Admin: 01/02/18 00:33 Dose: 5,000 unit Hydralazine HCl (Apresoline) 10 mg IV Q4H PRN PRN Reason: Blood Pressure Ibuprofen (Motrin) 600 mg PO Q6H PRN PRN Reason: For Pain/Fever/Headache Labetalol HCl (Normodyne) 200 mg PO TID FERNANDO Levetiracetam (Keppra) 750 mg PO TID FERNANDO Lorazepam (Ativan) 1 mg IV Q2H PRN PRN Reason: Seizures Morphine Sulfate (Morphine) 2 mg IV Q4H PRN PRN Reason: Pain, Moderate (4-6) Phenytoin (Dilantin) 100 mg PO QHS FERNANDO Prednisone (Deltasone) 10 mg PO QDAY FERNANDO Sertraline HCl (Zoloft) 25 mg PO QDAY [facility] Review of Systems All systems: negative Exam - Vital Signs Vital signs: Vital Signs BP 204/129 01/01/18 16:32 - General Appearance General appearance: well-developed, well-nourished EENT: ATNC Heart: regular, S1S2 Gastrointestinal: Present: normal. Absent: tenderness, distended Integumentary: no rash Musculoskeletal: Present: other (no edema) Psychiatric: cooperative Results - Lab Results 01/01/18 17:01 01/02/18 04:57 Most recent lab results Calcium 8.9 mg/dL (8.4-10.2) 01/02/18 04:57 Assessment and Plan Impression: * ESRD on intermittent HD (outpatient schedule TTS) * Seizure disorder * Hypertension * SLE * Anemia secondary to ESRD * Secondary hyperparathyroidism Plan: * No acute indication for HD today * Resume HD TTS schedule tomorrow * UF as tolerated * Antiepileptic medications per primary team * Continue HTN medications * Epogen TIW prn * Change diet to Renal w/ fluid restriction
[2018-01-02] MEDS: BENADRYL PO PRN (13:00)
--- NOTE | 2018-01-02 14:01 | Consultation ---
History of Present Illness Consult date: 01/02/18 Requesting physician: CHAZ SOTELO Reason for Consult: Seizures. Chief complaint: Seizure. History of present illness: 27 years old right handed female with a past medical history of seizure, lupus and ESRD, admitted for seizure. She reports that she remembers getting out of car when she noticed right leg weakness followed by shaking. Patient was tonic-colonic seizure activity per EMS. She was given Versed 10 mg intranasally and transported to the ED. After admission, no more seizures. She was on Keppra and phenytoin at home. Her last seizure was 2016. She didn't remember when she had first seizure and what other seizure medicine she was on before. She probably has focal seizure with conscious impairment and secondary general. She denied aura, her seizure lasted few minutes, then postictal status. She has tongue bitted. She denied incontinency. Past History Past Medical History: ESRD, hypertension, seizures, other (SLE) Past Surgical History: Other (AV access) Social history: smoking Family history: hypertension Medications and Allergies Allergies Allergy/AdvReac Type Severity Reaction Status Date / Time acetaminophen [From Percocet] Allergy Itching Verified 10/22/17 06:50 metoprolol Allergy Unknown Verified 10/22/17 06:50 oxycodone [From Percocet] Allergy Itching Verified 10/22/17 06:50 oxycodone HCl [From Percocet] AdvReac Unknown Verified 10/22/17 06:50 Home Medications Medication Instructions Recorded Confirmed Last Taken Type Furosemide [Lasix] 80 mg PO QDAY #30 tablet 09/05/17 01/02/18 2 Days Ago Rx ~12/31/17 hydrALAZINE [Apresoline TAB] 25 mg PO TID 30 Days tablet 09/05/17 01/02/18 2 Days Ago Rx ~12/31/17 cloNIDine [Catapres] 0.3 mg PO TID 10/09/17 01/02/18 2 Days Ago History ~12/31/17 levETIRAcetam [Keppra TAB] 750 mg PO TID 10/09/17 01/02/18 2 Days Ago History ~12/31/17 Labetalol [Normodyne TAB] 200 mg PO TID 11/24/17 01/02/18 2 Days Ago History ~12/31/17 ALBUTEROL NEB's [Proventil 0.083% 2.5 mg IH Q4HRT PRN #100 nebu 11/25/17 2 Days Ago Rx NEBS] ~12/31/17 Active Meds: Active Medications Albuterol (Proventil) 2.5 mg IH Q4HRT PRN PRN Reason: Shortness Of Breath Clonidine HCl (Catapres) 0.1 mg PO TID FERNANDO Clonidine HCl (Catapres) 0.2 mg PO TID FERNANDO Diphenhydramine HCl (Benadryl) 25 mg PO QID PRN PRN Reason: Itching Epoetin [place] (Procrit) 5,000 unit IV ALYSSA PRN PRN Reason: hemodialysis Furosemide (Lasix) 80 mg PO QDAY [facility] Heparin Sodium (Porcine) (Heparin) 5,000 unit SUB-Q Q12HR [facility] Last Admin: 01/02/18 00:33 Dose: 5,000 unit Heparin Sodium (Porcine) (Heparin 10,000 Units/10 Ml) 1,000 unit IV ALYSSA PRN PRN Reason: hemodialysis Hydralazine HCl (Apresoline) 10 mg IV Q4H PRN PRN Reason: Blood Pressure Sodium Chloride (Nacl 0.9%) 100 mls @ 999 mls/hr IV ALYSSA PRN PRN Reason: Hypotension Ibuprofen (Motrin) 600 mg PO Q6H PRN PRN Reason: For Pain/Fever/Headache Labetalol HCl (Normodyne) 200 mg PO TID [facility] Levetiracetam (Keppra) 750 mg PO TID FERNANDO Lorazepam (Ativan) 1 mg IV Q2H PRN PRN Reason: Seizures Losartan Potassium (Cozaar) 100 mg PO QDAY [facility] Morphine Sulfate (Morphine) 2 mg IV Q4H PRN PRN Reason: Pain, Moderate (4-6) Phenytoin (Dilantin) 100 mg PO QHS FERNANDO Prednisone (Deltasone) 10 mg PO QDAY FERNANDO Sertraline HCl (Zoloft) 25 mg PO QDAY FERNANDO Review of Systems All systems: negative (mild sleep. All other 10 points of systems are reviewed and negative.) Physical Examination - Vital Signs Vital Signs: Vital Signs BP 204/129 01/01/18 16:32 - Constitutional General appearance: comfortable - EENT EENT: Present: PERRL, mucous membranes moist - Respiratory Respiratory: Present: chest non-tender, lungs clear - Cardiovascular Cardiovascular: Present: regular rate, no murmurs Extremities: Present: no peripheral edema bilatateraly, no clubbing, cyanosis - Gastrointestinal Gastrointestinal: Present: soft, non-tender, non-distended - Integumentary Integumentary: Present: normal - Neurologic Cranial nerve examination: PERRL, EOMI, V1/V2/V3 grossly intact, face symmetric , tongue midline, intact Speech examination: intact Sensorimotor examination: intact Detailed motor examination: grossly full strength in Detailed sensory examination: intact Reflexes: 2+: ankle, bicep, knee, tricep - Psychiatric Psychiatric: Present: mood/affect appropriate Results - Laboratory Findings CBC and BMP: 01/01/18 17:01 01/02/18 04:57 Abnormal Lab Findings: Abnormal Labs 01/01/18 01/01/18 01/02/18 17:01 17:01 04:57 MCH 27 L RDW 19.9 H [place] % (Auto) 10.4 H Lymph # 1.0 L Seg Neutrophils % 72.6 H Sodium 134 L Chloride 97.9 L BUN 18 H Creatinine 3.1 H 4.3 H ALT < 5 L Albumin 3.8 L Assessment and Plan 1.History of seizure and seizure break through. Probably focal seizure with conscious impairment and secondary general. 2. Change Keppra to 500 mg bid, 500 mg every post hemodialysis. Change phenytoin to 100 mg tid, level tomorrow morning. Per level to adjust phenytoin doses. Folic acid 2 mg daily. If , 2 mg bid. 3. Don't drive a vehicle or operate heavy machinery for 6 months. Always seizure precaution. 4. ESRD. Nephrology and HD. 5. Lupus. Internal medicine. 6. HTN. Controlled. Medicine. 7. Plan discussed with her, her nurse and her hospitalist, Dr. Garza. 8. Please call clinical nutrition manager neurology for follow up. 9. If D/C, F/U with neurology in 4-6 weeks.
[2018-01-02] MEDS: COZAAR PO SCH (15:30)
--- NOTE | 2018-01-02 17:39 | Progress Note ---
Assessment and Plan Assessment and plan: 27-year-old -[place] female with past medical history significant for lupus, seizure disorder, end-stage renal disease on hemodialysis presented to the emergency department for tonic clonic seizure Seizure disorder with seizure attack - Patient claims she was taking her medications - Patient was treated with Versed and continue home medications - Neurology was consulted this morning and, recommended to decrease Keppra from 750 twice a day to 500 twice a day because of ESRD, increase phenytoin from 100 daily at bedtime 100mg 3 times a day ESRD on hemodialysis - Nephrology is following Hypertension - Continue home medications Lupus -Continue steroid DVT prophylaxis - Heparin Disposition Continue inpatient care and possible discharge tomorrow. History Interval history: Patient was seen and evaluated this morning. Patient was complaining generalized pain, no seizure episode of after admission. Hospitalist Physical - Physical exam Narrative exam: Not in cardiopulmonary distress. The patient appeared well nourished and normally developed. Vital signs as documented. Head exam is unremarkable. No scleral icterus . Neck is without jugular venous distension, thyromegaly, or carotid bruits. Lungs are clear to auscultation. Cardiac exam reveals regular rate and Rhythm. First and second heart sounds normal. No murmurs, rubs or gallops. Abdominal exam reveals normal bowel sounds, no masses, no organomegaly and no aortic enlargement. Extremities are nonedematous and both femoral and pedal pulses are normal. SHEAR GRINDER OPERATOR: Alert and oriented 3. No focal weakness. - Constitutional Vitals: Temp Pulse Resp BP Pulse Ox 97.9 F 80 20 142/91 100 01/02/18 15:40 01/02/18 16:40 01/02/18 15:40 01/02/18 15:40 01/02/18 15:40 Results - Labs CBC & Chem 7: 01/01/18 17:01 01/02/18 04:57 Labs: Laboratory Last Values WBC 6.5 K/mm3 (4.5-11.0) 01/01/18 17:01 RBC 3.68 M/mm3 (3.65-5.03) 01/01/18 17:01 Hgb 10.1 gm/dl (10.1-14.3) 01/01/18 17:01 Hct 31.3 % (30.3-42.9) 01/01/18 17:01 MCV 85 fl (79-97) 01/01/18 17:01 MCH 27 pg (28-32) L 01/01/18 17:01 MCHC 32 % (30-34) 01/01/18 17:01 RDW 19.9 % (13.2-15.2) H 01/01/18 17:01 Plt Count 434 K/mm3 (140-440) 01/01/18 17:01 Lymph % (Auto) 15.1 % (13.4-35.0) 01/01/18 17:01 [place] % (Auto) 10.4 % (0.0-7.3) H 01/01/18 17:01 Eos % (Auto) 1.4 % (0.0-4.3) 01/01/18 17:01 Baso % (Auto) 0.5 % (0.0-1.8) 01/01/18 17:01 Lymph # 1.0 K/mm3 (1.2-5.4) L 01/01/18 17:01 [place] # 0.7 K/mm3 (0.0-0.8) 01/01/18 17:01 Eos # 0.1 K/mm3 (0.0-0.4) 01/01/18 17:01 Baso # 0.0 K/mm3 (0.0-0.1) 01/01/18 17:01 Seg Neutrophils % 72.6 % (40.0-70.0) H 01/01/18 17:01 Seg Neutrophils # 4.7 K/mm3 (1.8-7.7) 01/01/18 17:01 Sodium 137 mmol/L (137-145) 01/02/18 04:57 Potassium 4.1 mmol/L (3.6-5.0) 01/02/18 04:57 Chloride 98.4 mmol/L (98-107) 01/02/18 04:57 Carbon Dioxide 24 mmol/L (22-30) 01/02/18 04:57 Anion Gap 19 mmol/L 01/02/18 04:57 BUN 18 mg/dL (7-17) H 01/02/18 04:57 Creatinine 4.3 mg/dL (0.7-1.2) H 01/02/18 04:57 Estimated GFR 15 ml/min 01/02/18 04:57 BUN/Creatinine Ratio 4 % 01/02/18 04:57 Glucose 98 mg/dL (65-100) 01/02/18 04:57 Calcium 8.9 mg/dL (8.4-10.2) 01/02/18 04:57 Total Bilirubin 0.30 mg/dL (0.1-1.2) 01/01/18 17:01 AST 20 units/L (5-40) 01/01/18 17:01 ALT < 5 units/L (7-56) L 01/01/18 17:01 Alkaline Phosphatase 79 units/L (35-129) 01/01/18 17:01 Total Protein 8.0 g/dL (6.3-8.2) 01/01/18 17:01 Albumin 3.8 g/dL (3.9-5) L 01/01/18 17:01 Albumin/Globulin Ratio 0.9 % 01/01/18 17:01
[2018-01-02] MEDS: DILANTIN PO SCH (19:13)
[2018-01-02] MEDS: MORPHINE IV PRN (19:13)
[2018-01-02] MEDS: KEPPRA PO SCH (21:47)
[2018-01-02] MEDS ORDERED: DILANTIN PO SCH (22:00)
[2018-01-03] MEDS: MORPHINE IV PRN ×2 (05:53→12:19)
[2018-01-03] MEDS: CATAPRES PO SCH ×4 (08:55→16:24)
[2018-01-03] MEDS: ZOLOFT PO SCH (09:00)
[2018-01-03] MEDS: COZAAR PO SCH (09:00)
[2018-01-03] MEDS: DELTASONE PO SCH (09:00)
[2018-01-03] MEDS: KEPPRA PO SCH (09:00)
[2018-01-03] MEDS: DILANTIN PO SCH ×2 (09:00→16:23)
[2018-01-03] MEDS: NORMODYNE PO SCH ×2 (09:00→16:24)
[2018-01-03] MEDS: LASIX PO SCH (09:01)
[2018-01-03] MEDS: HEPARIN SUB-Q SCH (09:01)
--- NOTE | 2018-01-03 11:41 | Discharge Summary ---
Providers - Providers Date of Admission: 01/01/18 23:35 Attending physician: CHAZ SOTELO MD 01/02/18 06:37 Consult to Physician [CONS] Routine Comment: Consulting Provider: FREEDOM SALAZAR Physician Instructions: Reason For Exam: SEIZURE DISORDER 01/02/18 09:50 Consult to Physician [CONS] Routine Comment: Consulting Provider: SREEDHAR MENJIVAR Physician Instructions: Reason For Exam: ESRD Primary care physician: POST DOCTORAL RESEARCHER Hospitalization Reason for admission: Seizure disorder Condition: Stable Pertinent studies: CT head normal Hospital course: 27-year-old -[place] female with past medical history significant for lupus, seizure disorder, end-stage renal disease on hemodialysis presented to the emergency department for tonic clonic seizure. patient was treated with versed and seizure stopped. Neurology consulted and recommended to decrease Keppra from 750 twice a day to 500 twice a day because of ESRD, increase phenytoin from 100 daily at bedtime 100mg 3 times a day. Nephrology consulted and patient get dialysis. Continue with her antihypertensive medications. Continue steroid for lupus. patient was hemodynamically stable at the time of discharge. No seizure episode at the time of discharge. Appropriate medication scripts were given at the time of discharge. Patient said she will follow with her PCP and her neurologist. Disposition: DC-01 TO HOME OR SELFCARE Time spent for discharge: 31 minutes - Discharge Diagnoses (1) Hypertensive emergency Status: Acute (2) Seizure Status: Acute (3) Subtherapeutic serum dilantin level Status: Acute (4) ESRD (end stage renal disease) on dialysis Status: Chronic (5) Lupus (systemic lupus erythematosus) Status: Chronic Qualifiers: Systemic lupus erythematosus type: unspecified Systemic lupus erythematosus organ involvement: unspecified Qualified Code(s): M32.9 - Systemic lupus erythematosus, unspecified (6) Seizure disorder Status: Chronic Core Measure Documentation - Palliative Care Palliative Care/ Comfort Measures: Not Applicable - Core Measures Any of the following diagnoses?: none Exam - Physical Exam Narrative exam: Not in cardiopulmonary distress. The patient appeared well nourished and normally developed. Vital signs as documented. Head exam is unremarkable. No scleral icterus . Neck is without jugular venous distension, thyromegaly, or carotid bruits. Lungs are clear to auscultation. Cardiac exam reveals regular rate and Rhythm. First and second heart sounds normal. No murmurs, rubs or gallops. Abdominal exam reveals normal bowel sounds, no masses, no organomegaly and no aortic enlargement. Extremities are nonedematous and both femoral and pedal pulses are normal. TV NEWS DIRECTOR: Alert and oriented 3. No focal weakness. - Constitutional Vitals: Temp Pulse Resp BP Pulse Ox 97.8 F 78 16 152/99 99 01/03/18 08:14 01/03/18 08:14 01/03/18 08:14 01/03/18 08:14 01/03/18 08:14 Plan Activity: no restrictions Weight Bearing Status: Full Weight Bearing Diet: low salt, renal Additional Instructions: Please F/U at [facility] in 1-2 weeks. Follow up with: EILEEN FERNANDEZ MD [Staff Physician] - 7 Days PRIMARY CARE, [Primary Care Provider] - 3-5 Days CASH PHELAN MD [Staff Physician] - 7 Days Prescriptions: Phenytoin [Dilantin] 100 mg PO TID #90 capsule.er
--- NOTE | 2018-01-03 11:52 | Progress Note ---
Assessment and Plan Impression: * ESRD on intermittent HD (outpatient schedule TTS) * Seizure disorder * Hypertension * SLE * Anemia secondary to ESRD * Secondary hyperparathyroidism Plan: * Continue HD TTS schedule * UF as tolerated * Antiepileptic medications per primary team * Continue HTN medications * Epogen TIW prn * Renal diet w/ fluid restriction * Neuro recommendations noted - "Change Keppra to 500 mg bid, 500 mg every post hemodialysis. Change phenytoin to 100 mg tid, level tomorrow morning. Per level to adjust phenytoin doses. Folic acid 2 mg daily". Subjective Date of service: 01/03/18 Objective - Vital Signs Vital signs: Vital Signs - 12hr 01/03/18 01/03/18 01/03/18 00:00 04:22 08:14 Temperature 97.8 F Pulse Rate 76 81 78 Respiratory 16 Rate Blood Pressure 160/102 Blood Pressure 152/99 [Left] O2 Sat by Pulse 100 99 Oximetry - Lab 01/01/18 17:01 01/02/18 04:57 Most recent lab results Calcium 8.9 mg/dL (8.4-10.2) 01/02/18 04:57
[2018-01-03] MEDS: BENADRYL PO PRN (12:31)
[2018-01-03 15:12] VITALS: BP 156/90
== END 2018-01-03 17:15 | disposition home or self-care (01) | DRG 100 ==
LOC: ED 16:23 → 4A 23:35
PROVIDERS: ADMIT Internal Medicine; ATTEND Internal Medicine
PROC: 5A1D70Z Performance of Urinary Filtration, Intermittent, Less than 6 Hours Per Day (ICD-10-PCS; principal; 2018-01-03)
DX: G40.909 Epilepsy, unspecified, not intractable, without status epilepticus (principal); N18.6 End stage renal disease; I16.9 Hypertensive crisis, unspecified; I16.1 Hypertensive emergency; N25.81 Secondary hyperparathyroidism of renal origin; I12.0 Hypertensive chronic kidney disease with stage 5 chronic kidney disease or end stage renal disease; M32.9 Systemic lupus erythematosus, unspecified; M19.90 Unspecified osteoarthritis, unspecified site; G43.909 Migraine, unspecified, not intractable, without status migrainosus; I27.20 Pulmonary hypertension, unspecified; D63.1 Anemia in chronic kidney disease; F17.200 Nicotine dependence, unspecified, uncomplicated; Z79.899 Other long term (current) drug therapy; Z88.5 Allergy status to narcotic agent; Z82.49 Family history of ischemic heart disease and other diseases of the circulatory system
CPT/HCPCS: 36415; 70450; 71045; 80048; 80053; 80185; 85025; 93005; 93010; 94760; 96374; 96375; 96376; 99291; J0360; J0885; J1644; J1953; J2060; J2270; J7512

== ENCOUNTER 2018-01-07 05:26 | Emergency (ER) | payer MEDICARE ==
[2018-01-07] MEDS ORDERED: KEPPRA PO ONE (05:46)
--- NOTE | 2018-01-07 05:46 | Emergency Department Report ---
ED General Adult HPI - General Stated complaint: SEIZURE Time Seen by Provider: 01/07/18 05:44 Source: patient, EMS - History of Present Illness Initial comments: Patient presents to emergency Department if seizures. Prior to arrival patient was given Versed by EMS which stopped her seizures. Patient states she has a history of seizures with the last one being last week. Patient states she takes 750 mg of Keppra daily for seizures. Patient has no other complaints -: Sudden Radiation: non-radiation Severity scale (0 -10): 2 Quality: aching, dull Consistency: constant Improves with: none Worsens with: none Associated Symptoms: denies other symptoms Treatments Prior to Arrival: none - Related Data Home Medications Medication Instructions Recorded Confirmed Last Taken cloNIDine [Catapres] 0.3 mg PO TID 10/09/17 01/02/18 2 Days Ago ~12/31/17 Labetalol [Normodyne TAB] 200 mg PO TID 11/24/17 01/02/18 2 Days Ago ~12/31/17 Previous Rx's Medication Instructions Recorded Last Taken Type Furosemide [Lasix] 80 mg PO QDAY #30 tablet 09/05/17 2 Days Ago Rx ~12/31/17 hydrALAZINE [Apresoline TAB] 25 mg PO TID 30 Days tablet 09/05/17 2 Days Ago Rx ~12/31/17 ALBUTEROL NEB's [Proventil 0.083% 2.5 mg IH Q4HRT PRN #100 nebu 11/25/17 2 Days Ago Rx NEBS] ~12/31/17 Phenytoin [Dilantin] 100 mg PO TID #90 capsule.er 01/03/18 Unknown Rx levETIRAcetam [Keppra TAB] 500 mg PO BID tablet 01/03/18 Unknown Rx Allergies Allergy/AdvReac Type Severity Reaction Status Date / Time acetaminophen [From Percocet] Allergy Itching Verified 10/22/17 06:50 metoprolol Allergy Unknown Verified 10/22/17 06:50 oxycodone [From Percocet] Allergy Itching Verified 10/22/17 06:50 oxycodone HCl [From Percocet] AdvReac Unknown Verified 10/22/17 06:50 ED Review of Systems ROS: Stated complaint: SEIZURE Other details as noted in HPI Comment: All other systems reviewed and negative Constitutional: denies: chills, fever Eyes: denies: eye pain, eye discharge, vision change ENT: denies: ear pain, throat pain Respiratory: denies: cough, shortness of breath, wheezing Cardiovascular: denies: chest pain, palpitations Endocrine: no symptoms reported Gastrointestinal: denies: abdominal pain, nausea, diarrhea Genitourinary: denies: urgency, dysuria, discharge Musculoskeletal: denies: back pain, joint swelling, arthralgia Skin: denies: rash, lesions Neurological: denies: headache, weakness, paresthesias Psychiatric: denies: anxiety, depression Hematological/Lymphatic: denies: easy bleeding, easy bruising ED Past Medical Hx - Past Medical History Hx Hypertension: Yes Hx Heart Attack/AMI: No Hx Congestive Heart Failure: No Hx Diabetes: No Hx Deep Vein Thrombosis: No Hx Pulmonary Embolism: No Hx Liver Disease: No Hx Renal Disease: Yes Hx Sickle Cell Disease: No Hx Arthritis: Yes Hx Headaches / Migraines: Yes Hx Seizures: Yes Hx Kidney Stones: No Hx Asthma: Yes Hx COPD: No Hx Dementia: No Additional medical history: Lupus - Surgical History Hx Coronary Stent: No Hx Pacemaker: No Hx Internal Defibrillator: No Additional Surgical History: graft - Social History Smoking Status: Current Every Day Smoker - Medications Home Medications: Home Medications Medication Instructions Recorded Confirmed Last Taken Type Furosemide [Lasix] 80 mg PO QDAY #30 tablet 09/05/17 01/02/18 2 Days Ago Rx ~12/31/17 hydrALAZINE [Apresoline TAB] 25 mg PO TID 30 Days tablet 09/05/17 01/02/18 2 Days Ago Rx ~12/31/17 cloNIDine [Catapres] 0.3 mg PO TID 10/09/17 01/02/18 2 Days Ago History ~12/31/17 Labetalol [Normodyne TAB] 200 mg PO TID 11/24/17 01/02/18 2 Days Ago History ~12/31/17 ALBUTEROL NEB's [Proventil 0.083% 2.5 mg IH Q4HRT PRN #100 nebu 11/25/17 2 Days Ago Rx NEBS] ~12/31/17 Phenytoin [Dilantin] 100 mg PO TID #90 capsule.er 01/03/18 Unknown Rx levETIRAcetam [Keppra TAB] 500 mg PO BID tablet 01/03/18 Unknown Rx ED Physical Exam - General General appearance: other (patient is somnolent on arrival secondary to Versed but is arousable and answers questions appropriately) - Head Head exam: Present: atraumatic, normocephalic - Eye Eye exam: Present: normal appearance, PERRL, EOMI Pupils: Present: normal accommodation - ENT ENT exam: Present: mucous membranes moist - Neck Neck exam: Present: normal inspection, other (supple) - Respiratory Respiratory exam: Present: normal lung sounds bilaterally. Absent: respiratory distress - Cardiovascular Cardiovascular Exam: Present: regular rate, normal rhythm. Absent: systolic murmur, diastolic murmur, rubs, gallop - GI/Abdominal GI/Abdominal exam: Present: soft, normal bowel sounds - Extremities Exam Extremities exam: Present: normal inspection - Back Exam Back exam: Present: normal inspection - Neurological Exam Neurological exam: Present: alert, oriented X3, CN II-XII intact. Absent: motor sensory deficit - Psychiatric Psychiatric exam: Present: normal affect, normal mood - Skin Skin exam: Present: warm, dry, intact, normal color. Absent: rash ED Course Vital Signs 01/07/18 01/07/18 01/07/18 05:36 05:46 06:00 Temperature 100.1 F H Pulse Rate 120 H 117 H Respiratory 15 9 L Rate Blood Pressure 157/93 O2 Sat by Pulse 94 99 Oximetry 01/07/18 01/07/18 01/07/18 06:15 06:31 06:45 Temperature Pulse Rate 115 H 112 H 113 H Respiratory 15 11 L 13 Rate Blood Pressure 168/112 168/112 173/103 O2 Sat by Pulse 100 94 96 Oximetry 01/07/18 07:00 Temperature Pulse Rate 116 H Respiratory 10 L Rate Blood Pressure 183/121 O2 Sat by Pulse Oximetry ED Medical Decision Making - Medical Decision Making Discussed results with patient Receive by mouth Keppra in the emergency department Critical care attestation.: If time is entered above; I have spent that time in minutes in the direct care of this critically ill patient, excluding procedure time. ED Disposition Clinical Impression: Seizure Disposition: DC-01 TO HOME OR SELFCARE Is pt being admited?: No Does the pt Need Aspirin: No Condition: Stable Instructions: Recurrent Seizures Adult (ED) Additional Instructions: Return if symptoms become worse Referrals: PRIMARY CARE, [Primary Care Provider] - 3-5 Days COLTON MOORE MD [Staff Physician] - 3-5 Days Time of Disposition: 08:54
[2018-01-07] MEDS ORDERED: ZOFRAN ODT PO ONE (07:31)
[2018-01-07] MEDS ORDERED: CATAPRES PO ONE (07:31)
[2018-01-07] MEDS ORDERED: NORCO 10/325 PO ONE (07:31)
--- NOTE | 2018-01-07 08:07 | Cat Scan Report ---
CT HEAD WITHOUT CONTRAST: HISTORY: Headache. TECHNIQUE: Sequential 2.5mm CT images. COMPARISON: 01/01/18. FINDINGS: Cerebral Parenchyma: Within normal limits. Cerebellum: Within normal limits. Brainstem: Within normal limits. Ventricles: Normal. Sella: Normal. Extra-axial spaces: Normal. Basal Cisterns: Normal. Intracranial Hemorrhage: None. Midline Shift: None. Calvarium: Normal. Sinuses: Normal. Mastoid Air Cells: Normal. Visualized Orbits: Normal. IMPRESSION: Cranial CT scan within normal limits.
[2018-01-07 13:33] VITALS: BP 163/96
== END 2018-01-07 13:32 | disposition home or self-care (01) ==
LOC: ED 05:26
DX: R56.9 Unspecified convulsions (principal); I10 Essential (primary) hypertension; G43.909 Migraine, unspecified, not intractable, without status migrainosus; J45.909 Unspecified asthma, uncomplicated; F17.200 Nicotine dependence, unspecified, uncomplicated; Z88.6 Allergy status to analgesic agent; Z88.8 Allergy status to other drugs, medicaments and biological substances
CPT/HCPCS: 36415; 70450; 84703; 99284; Q0162

== ENCOUNTER 2018-01-30 10:14 | Emergency (ER) | payer MEDICARE ==
[2018-01-30] MEDS ORDERED: ASPIRIN PO ONE (10:29)
[2018-01-30 11:07] LABS: Basophils % (Auto) 0.5 % (0.0-1.8); Eosinophils # (Auto) 0.1 K/mm3 (0.0-0.4); Eosinophils % (Auto) 0.9 % (0.0-4.3); Hematocrit 34.9 % (30.3-42.9); Hemoglobin 10.9 gm/dl (10.1-14.3); Lymphocytes # (Auto) 1.9 K/mm3 (1.2-5.4); Lymphocytes % (Auto) 17.9 % (13.4-35.0); Mean Corpuscular HGB Conc 31 % (30-34); Mean Corpuscular Hemoglobin 27 pg (28-32); Mean Corpuscular Volume 87 fl (79-97); Monocytes # (Auto) 1.2 K/mm3 (0.0-0.8); Monocytes % (Auto) 11.6 % (0.0-7.3); Platelet Count 302 K/mm3 (140-440); Red Blood Count 4.01 M/mm3 (3.65-5.03)
[2018-01-30 11:13] LABS: Red Cell Distribution Width 24.8 % (13.2-15.2)
[2018-01-30 11:20] LABS: Albumin 3.3 g/dL (3.9-5); Calcium 8.6 mg/dL (8.4-10.2)
[2018-01-30 11:23] LABS: INR 1.08 (0.87-1.13)
[2018-01-30 11:24] LABS: Partial Thromboplastin Time 32.4 Sec. (24.2-36.6)
[2018-01-30 11:31] LABS: Chol/HDL Ratio 2.01 %
[2018-01-30] MEDS ORDERED: ZOFRAN ODT PO ONE (12:12)
[2018-01-30] MEDS ORDERED: PEPCID PO ONE (12:12)
--- NOTE | 2018-01-30 12:12 | Emergency Department Report ---
ED General Adult HPI - General Chief complaint: Chest Pain Stated complaint: CHEST/BACK PAIN Time Seen by Provider: 01/30/18 11:52 Source: patient Mode of arrival: Ambulatory Limitations: No Limitations - History of Present Illness Initial comments: 27-year-old female history of end-stage renal disease lupus dialysis Friday, woke up this morning with a burning and chest and upper abdomen after she thinks she ate a bad hamburger yesterday and was also making her sick to her stomach with some intermittent nausea vomiting. She denied diarrhea, black or bloody stool nonexertional chest pain no syncope. Reevaluatio burning on her chest and intermittent nausea vomiting since she had a hamburger yesterday -: Gradual, hour(s) Radiation: non-radiation Quality: burning Associated Symptoms: denies other symptoms, other (back pain poss uti) - Related Data Previous Rx's Medication Instructions Recorded Last Taken Type ALBUTEROL NEB's [Proventil 0.083% 2.5 mg IH Q4HRT PRN #100 nebu 11/25/17 2 Days Ago Rx NEBS] ~12/31/17 Furosemide [Lasix] 80 mg PO QDAY #30 tablet 01/18/18 Unknown Rx Hydralazine HCl 50 mg PO TID #90 tablet 01/18/18 Unknown Rx NIFEdipine XL [Procardia Xl] 60 mg PO Q12HR #60 tablet 01/18/18 Unknown Rx Phenytoin [Dilantin] 100 mg PO TID #90 capsule.er 01/18/18 Unknown Rx Sertraline [Zoloft] 25 mg PO HS #30 tab 01/18/18 Unknown Rx Valsartan [Diovan] 320 mg PO QDAY #30 tablet 01/18/18 Unknown Rx cloNIDine [Catapres] 0.1 mg PO TID #90 tablet 01/18/18 Unknown Rx cloNIDine [Catapres] 0.2 mg PO TID #90 tablet 01/18/18 Unknown Rx predniSONE [Deltasone] 10 mg PO .TAPER #48 tab 01/18/18 Unknown Rx Levofloxacin [Levaquin] 250 mg PO QDAY 3 Days #3 tablet 01/30/18 Unknown Rx Allergies Allergy/AdvReac Type Severity Reaction Status Date / Time acetaminophen [From Percocet] Allergy Itching Verified 10/22/17 06:50 metoprolol Allergy Unknown Verified 10/22/17 06:50 oxycodone [From Percocet] Allergy Itching Verified 10/22/17 06:50 oxycodone HCl [From Percocet] AdvReac Unknown Verified 10/22/17 06:50 ED Review of Systems ROS: Stated complaint: CHEST/BACK PAIN Other details as noted in HPI Comment: All other systems reviewed and negative Constitutional: malaise. denies: diaphoresis, fever ENT: denies: dental pain, hearing loss, epistaxis Respiratory: denies: shortness of breath, SOB with exertion, SOB at rest, stridor Cardiovascular: chest pain. denies: palpitations, dyspnea on exertion, orthopnea Gastrointestinal: nausea, vomiting. denies: abdominal pain, diarrhea, constipation, hematemesis, melena, hematochezia Neurological: denies: headache, weakness, numbness, paresthesias, confusion, abnormal gait, vertigo ED Past Medical Hx - Past Medical History Previous Medical History?: Yes Hx Hypertension: Yes Hx Heart Attack/AMI: No Hx Congestive Heart Failure: No Hx Diabetes: No Hx Deep Vein Thrombosis: No Hx Pulmonary Embolism: No Hx Liver Disease: No Hx Renal Disease: Yes Hx Sickle Cell Disease: No Hx Arthritis: Yes Hx Headaches / Migraines: Yes Hx Seizures: Yes Hx Kidney Stones: No Hx Asthma: Yes Hx COPD: No Hx Dementia: No Additional medical history: Lupus - Surgical History Past Surgical History?: Yes Hx Coronary Stent: No Hx Pacemaker: No Hx Internal Defibrillator: No Additional Surgical History: RIGHT ARM graft - Social History Smoking Status: Current Every Day Smoker Substance Use Type: Prescribed - Medications Home Medications: Home Medications Medication Instructions Recorded Confirmed Last Taken Type ALBUTEROL NEB's [Proventil 0.083% 2.5 mg IH Q4HRT PRN #100 nebu 11/25/17 2 Days Ago Rx NEBS] ~12/31/17 Furosemide [Lasix] 80 mg PO QDAY #30 tablet 01/18/18 01/30/18 Unknown Rx Hydralazine HCl 50 mg PO TID #90 tablet 01/18/18 01/30/18 Unknown Rx NIFEdipine XL [Procardia Xl] 60 mg PO Q12HR #60 tablet 01/18/18 01/30/18 Unknown Rx Phenytoin [Dilantin] 100 mg PO TID #90 capsule.er 01/18/18 01/30/18 Unknown Rx Sertraline [Zoloft] 25 mg PO HS #30 tab 01/18/18 01/30/18 Unknown Rx Valsartan [Diovan] 320 mg PO QDAY #30 tablet 01/18/18 01/30/18 Unknown Rx cloNIDine [Catapres] 0.1 mg PO TID #90 tablet 01/18/18 01/30/18 Unknown Rx cloNIDine [Catapres] 0.2 mg PO TID #90 tablet 01/18/18 01/30/18 Unknown Rx predniSONE [Deltasone] 10 mg PO .TAPER #48 tab 01/18/18 01/30/18 Unknown Rx Levofloxacin [Levaquin] 250 mg PO QDAY 3 Days #3 tablet 01/30/18 Unknown Rx ED Physical Exam - General Limitations: No Limitations General appearance: alert, in no apparent distress, anxious - Head Head exam: Present: atraumatic, normocephalic - Eye Eye exam: Present: PERRL, EOMI - ENT ENT exam: Present: normal exam, normal orophraynx - Neck Neck exam: Present: normal inspection. Absent: tenderness, meningismus - Respiratory Respiratory exam: Present: normal lung sounds bilaterally. Absent: respiratory distress, wheezes, rales, rhonchi, stridor - Cardiovascular Cardiovascular Exam: Present: regular rate, normal rhythm - GI/Abdominal GI/Abdominal exam: Present: soft. Absent: distended, tenderness, guarding, rebound, mass, pulsatile mass - Extremities Exam Extremities exam: Present: normal capillary refill. Absent: calf tenderness - Back Exam Back exam: Present: CVA tenderness (R), CVA tenderness (L). Absent: muscle spasm, paraspinal tenderness, vertebral tenderness - Neurological Exam Neurological exam: Present: alert, oriented X3, CN II-XII intact. Absent: motor sensory deficit ED Course Vital Signs 01/30/18 01/30/18 01/30/18 10:23 11:42 12:00 Temperature 98.3 F Pulse Rate 84 76 73 Respiratory 22 11 L 21 Rate Blood Pressure 196/117 185/110 O2 Sat by Pulse 98 100 Oximetry 01/30/18 01/30/18 01/30/18 12:30 12:39 13:00 Temperature Pulse Rate 94 H 84 80 Respiratory 13 14 Rate Blood Pressure 198/108 198/108 163/102 O2 Sat by Pulse 100 100 Oximetry 01/30/18 01/30/18 01/30/18 13:30 14:00 14:30 Temperature Pulse Rate 87 81 83 Respiratory 15 22 24 Rate Blood Pressure 148/90 133/80 135/79 O2 Sat by Pulse 97 98 Oximetry 01/30/18 01/30/18 01/30/18 15:00 15:30 16:00 Temperature Pulse Rate 74 Respiratory 21 28 H Rate Blood Pressure 137/75 133/86 O2 Sat by Pulse 98 99 100 Oximetry 01/30/18 01/30/18 16:44 17:00 Temperature Pulse Rate 75 93 H Respiratory 14 27 H Rate Blood Pressure 137/84 139/89 O2 Sat by Pulse 100 Oximetry ED Medical Decision Making - Lab Data Result diagrams: 01/30/18 10:35 01/30/18 10:35 - EKG Data -: EKG Interpreted by Me - EKG Data Interpretation: no acute changes 01/30/18 18:36 Normal sinus rhythm with no ST-T changes - Radiology Data Radiology results: report reviewed - Medical Decision Making Patient chronically elevated troponin she is in stage renal disease no acute elevation to the troponin history is atypical EKG is unchanged from previous with no evidence of ACS at this time case was discussed with Dr. Farnsworth states that given the chronic long-standing chest pain no acute EKG changes with 2 troponins that are not remarkably different from previous that he would not admit her at this point time for further evaluation chest pain patient is now refusing admission at this point anyway symptoms are likely multifactorial she did seem to have some nausea vomiting there may be related to something she ate she is tolerated by mouth vital signs are stable no signs of severe dehydration or sepsis at this time she also was noted to have likely UTI on CT she refused catheterization was unable to produce a urine we will go ahead and treat her for UTI she will follow-up with regular doctor in a sterile for outpatient follow-up no signs of acute abdomen vital signs are stable. Sepsis no signs of that at this time this was discussed with Dr. Owens 1 dose of Levaquin then Levaquin 250 by mouth every other day patient stable for outpatient follow-up Critical care attestation.: If time is entered above; I have spent that time in minutes in the direct care of this critically ill patient, excluding procedure time. ED Disposition Clinical Impression: ESRD (end stage renal disease), Nausea & vomiting, UTI (urinary tract infection ), Elevated troponin, Chest pain Disposition: TO HOME OR SELFCARE Is pt being admited?: No Condition: Stable Instructions: Urinary Tract Infection in Women (ED), Chest Pain (ED), Chronic Kidney Disease (ED), Acute Nausea and Vomiting (ED) Additional Instructions: See her doctor in 1 day return if new or alarming symptoms take the medicine as directed call 911 if he develops worse symptoms fever or other problems Prescriptions: Levofloxacin [Levaquin] 250 mg PO QDAY 3 Days #3 tablet Referrals: PRIMARY CARE, [Primary Care Provider] - 3-5 Days Time of Disposition: 18:46
[2018-01-30] MEDS ORDERED: BENTYL IM ONE (12:13)
[2018-01-30] MEDS ORDERED: CATAPRES ONE (12:35)
[2018-01-30] MEDS ORDERED: CATAPRES PO ONE (12:37)
[2018-01-30] MEDS ORDERED: KEPPRA PO ONE ×2 (13:20→15:52)
[2018-01-30 16:39] LABS: Bacteria,Urine 2+ /HPF (Negative); Bilirubin,Urine NEG (Negative); Blood,Urine LG (Negative); Color,Urine Red (Yellow); HCG Qualitative,Urine Negative (Negative); Mucus,Urine FEW /HPF; Urobilinogen,Urine < 2.0 mg/dL (<2.0)
--- NOTE | 2018-01-30 17:26 | XRay Report ---
FINAL REPORT EXAM: XR CHEST ROUTINE 2V HISTORY: burning in chest TECHNIQUE: 2 view examination of the chest PRIORS: 01/14/2018 FINDINGS: Cardiac silhouette size slightly enlarged. Vascular markings slightly increased may reflect congestion. Nonspecific soft tissue density prominence is noted adjacent to the trachea bilaterally. This may reflect enlargement of substernal thyroid. Nonspecific stable slight prominence of the left main pulmonary artery segment manifest as slight bulging of the left upper cardiac margin. This can be normal in young females. Differential includes enlargement of left main pulmonary artery No pneumothorax or pleural effusion. No new focal pulmonary consolidation. No acute displaced fracture. IMPRESSION: Slight cardiomegaly with prominent vascular markings possibly representing congestion Upper mediastinal soft tissue prominence adjacent to the trachea bilaterally may reflect enlargement of substernal thyroid. Recommend followup chest CT, with IV contrast if possible, to exclude lung neoplasm Nonspecific prominence in region of left main pulmonary artery segment may reflect enlargement but can be normal in young females
[2018-01-30] MEDS ORDERED: LEVAQUIN PO ONE (18:42)
[2018-01-30 20:12] VITALS: BP 129/82
--- NOTE | 2018-01-30 20:49 | Cat Scan Report ---
FINAL REPORT EXAM: CT ABDOMEN PELVIS WO CON HISTORY: flank pain TECHNIQUE: CT examination of the ABDOMEN without IV contrast CT examination of the PELVIS without IV contrast PRIORS: 10/14/2017 FINDINGS: Stable slight linear scar left lung base. Slight cardiomegaly. Small calcified gallstone in gallbladder lumen. No definite other biliary pathology. Normal noncontrast appearance of the liver, adrenals, pancreas, and spleen. Normal caliber abdominal aorta and IVC. There is nonspecific fat stranding throughout the abdominal wall and mesentery raising suspicion of anasarca. Fat stranding is present adjacent to both kidneys, more on the right. This may reflect pyelonephritis. No renal calculus or hydronephrosis. No proximal ureteral distention. Mid and distal ureters are obscured by adjacent anatomy. Very small fat containing umbilical hernia. No inguinal hernia. No retroperitoneal adenopathy. No visible focal mesenteric mass. Examination is limited by lack of oral and IV contrast. Normal-appearing stomach and duodenum. No small bowel distention in the abdomen and pelvis. Moderate pelvic free fluid may be reactive or related anasarca. It is nonspecific. Normal-appearing urinary bladder, uterus, and adnexa. No definite rectal abnormality. Normal-appearing sigmoid colon. No evidence of free air. Prominent stool in ascending colon, transverse colon, and rectum may reflect constipation. Normal-appearing terminal ileum. Appendix not separately identified. IMPRESSION: Perirenal fat stranding may reflect pyelonephritis, more on the right Fat stranding throughout the abdominal wall and mesentery raises suspicion of anasarca Moderate pelvic free fluid may be reactive or related anasarca Prominent stool may reflect constipation without gross colonic distention Slight cardiomegaly Small calcified gallstone in gallbladder lumen again noted
== END 2018-01-30 20:15 | disposition home or self-care (01) ==
LOC: ED 10:14
DX: N39.0 Urinary tract infection, site not specified (principal); I12.0 Hypertensive chronic kidney disease with stage 5 chronic kidney disease or end stage renal disease; N18.6 End stage renal disease; R79.89 Other specified abnormal findings of blood chemistry; R11.2 Nausea with vomiting, unspecified; M19.90 Unspecified osteoarthritis, unspecified site; G43.909 Migraine, unspecified, not intractable, without status migrainosus; J45.909 Unspecified asthma, uncomplicated; F17.200 Nicotine dependence, unspecified, uncomplicated; Z99.2 Dependence on renal dialysis; Z88.6 Allergy status to analgesic agent; Z88.8 Allergy status to other drugs, medicaments and biological substances; Z88.5 Allergy status to narcotic agent
CPT/HCPCS: 36415; 71046; 74176; 80053; 80061; 81001; 81025; 83690; 84484; 85025; 85610; 85730; 93005; 93010; 96372; 99285; J0500; Q0162

== ENCOUNTER 2018-01-31 02:22 | Emergency (ER) | payer MEDICARE ==
[2018-01-31] MEDS ORDERED: APRESOLINE ONE (03:24)
[2018-01-31] MEDS ORDERED: BENADRYL IM ONE (06:38)
[2018-01-31] MEDS ORDERED: SUBLIMAZE IM ONE ×2 (06:38→09:01)
[2018-01-31] MEDS ORDERED: ZOFRAN IM ONE (06:38)
--- NOTE | 2018-01-31 06:43 | Emergency Department Report ---
HPI - General Chief Complaint: Pain General Time Seen by Provider: 01/31/18 06:27 - HPI HPI: Room 9 The patient is a 27-year-old female presenting with a chief complaint of "my bones hurt real bad." The patient says she comes back to the emergency department today because all of her bones hurt. Patient complains of pain diffusely throughout her body. Patient denies one area hurting more than the other. Patient denies any recent trauma. The patient states her bone pain began after she was discharged from the emergency department yesterday. Patient denies fever. Patient gives her pain a score of 10/10 Location: Diffuse body Duration: Constant since last night Quality: Pain Severity: 10/10 Modifying factors: [see above] Context: [see above] Mode of transportation: [not driving] ED Past Medical Hx - Past Medical History Previous Medical History?: Yes Hx Hypertension: Yes Hx Renal Disease: Yes Hx Arthritis: Yes Hx Headaches / Migraines: Yes Hx Seizures: Yes Hx Asthma: Yes Additional medical history: Lupus - Surgical History Additional Surgical History: RIGHT ARM graft - Family History Family history: no significant - Social History Smoking Status: Current Every Day Smoker (1/10 pack per day) Substance Use Type: None (denies illicit drug use) - Medications Home Medications: Home Medications Medication Instructions Recorded Confirmed Last Taken Type ALBUTEROL NEB's [Proventil 0.083% 2.5 mg IH Q4HRT PRN #100 nebu 11/25/17 2 Days Ago Rx NEBS] ~12/31/17 Furosemide [Lasix] 80 mg PO QDAY #30 tablet 01/18/18 01/30/18 Unknown Rx Hydralazine HCl 50 mg PO TID #90 tablet 01/18/18 01/30/18 Unknown Rx NIFEdipine XL [Procardia Xl] 60 mg PO Q12HR #60 tablet 01/18/18 01/30/18 Unknown Rx Phenytoin [Dilantin] 100 mg PO TID #90 capsule.er 01/18/18 01/30/18 Unknown Rx Sertraline [Zoloft] 25 mg PO HS #30 tab 01/18/18 01/30/18 Unknown Rx Valsartan [Diovan] 320 mg PO QDAY #30 tablet 01/18/18 01/30/18 Unknown Rx cloNIDine [Catapres] 0.1 mg PO TID #90 tablet 01/18/18 01/30/18 Unknown Rx cloNIDine [Catapres] 0.2 mg PO TID #90 tablet 01/18/18 01/30/18 Unknown Rx predniSONE [Deltasone] 10 mg PO .TAPER #48 tab 01/18/18 01/30/18 Unknown Rx Levofloxacin [Levaquin] 250 mg PO QDAY 3 Days #3 tablet 01/30/18 Unknown Rx traMADol [Ultram] 50 mg PO Q6HR PRN #14 tablet 01/31/18 Unknown Rx ED Review of Systems ROS: Stated complaint: VOMITTING SOB Other details as noted in HPI Constitutional: denies: fever Musculoskeletal: arthralgia, myalgia Physical Exam - Physical Exam Vital Signs: Vital Signs 01/31/18 03:28 Temperature 98 F Pulse Rate 102 H Respiratory 18 Rate Blood Pressure 161/106 O2 Sat by Pulse 100 Oximetry Physical Exam: GENERAL: The patient is well-developed well-nourished female lying on stretcher moaning appearing to be in moderate discomfort. [] HEENT: Normocephalic. Atraumatic. Extraocular motions are intact. Patient has moist mucous membranes. NECK: Supple. Trachea midline CHEST/LUNGS: Clear to auscultation. There is no respiratory distress noted. HEART/CARDIOVASCULAR: Regular. There is no tachycardia. There is no gallop rub or murmur. ABDOMEN: Abdomen is soft, nontender. Patient has normal bowel sounds. There is no abdominal distention. SKIN: There is no rash. There is no edema. There is no diaphoresis. NEURO: The patient is awake, alert, and oriented. The patient is cooperative. The patient has normal speech MUSCULOSKELETAL: There is no evidence of acute injury. ED Course Vital Signs 01/31/18 03:28 Temperature 98 F Pulse Rate 102 H Respiratory 18 Rate Blood Pressure 161/106 O2 Sat by Pulse 100 Oximetry - Reevaluation(s) Reevaluation #1: 01/31/18 11:01 Patient states her bone pain has resolved. The patient states she now just has a headache and is requesting ice water because she is thirsty ED Medical Decision Making - Lab Data Result diagrams: 01/31/18 08:55 01/31/18 08:55 Laboratory Tests 01/31/18 01/31/18 01/31/18 06:26 06:26 08:55 WBC 11.6 H RBC 3.66 Hgb 10.0 L Hct 32.0 MCV 87 MCH 27 L MCHC 31 RDW 24.9 H Plt Count 256 Lymph % (Auto) 8.2 L [place] % (Auto) 13.8 H Eos % (Auto) 1.3 Baso % (Auto) 0.4 Lymph # 1.0 L [place] # 1.6 H Eos # 0.1 Baso # 0.0 Seg Neutrophils % 76.3 H Seg Neutrophils # 8.9 H Sodium Potassium Chloride Carbon Dioxide Anion Gap BUN Creatinine Estimated GFR BUN/Creatinine Ratio Glucose Calcium Total Bilirubin AST ALT Alkaline Phosphatase Total Protein Albumin Albumin/Globulin Ratio Urine Color Red Urine Turbidity Hazy Urine pH 5.0 Ur Specific [place] 1.005 Urine Protein Color interference Urine Glucose (UA) Negative Urine Ketones Color interference Urine Blood Large A Urine Nitrite Negative Ur Reducing Substances Not Reportable Urine Bilirubin Color interference Urine Ictotest Not Reportable Urine Urobilinogen < 0.2 Ur Leukocyte Esterase Moderate Urine WBC (Auto) 86.0 H Urine RBC (Auto) > 182.0 U Epithel Cells (Auto) 10.0 Urine Bacteria (Auto) 3+ Urine Mucus 1+ Urine Opiates Screen Presumptive negative Urine Methadone Screen Presumptive negative Ur Barbiturates Screen Presumptive negative Ur Phencyclidine Scrn Presumptive negative Ur Amphetamines Screen Presumptive negative U Benzodiazepines Scrn Presumptive negative Urine Cocaine Screen Presumptive negative U Marijuana (THC) Screen Presumptive negative Drugs of Abuse Note Disclamer 01/31/18 08:55 WBC RBC Hgb Hct MCV MCH MCHC RDW Plt Count Lymph % (Auto) [place] % (Auto) Eos % (Auto) Baso % (Auto) Lymph # [place] # Eos # Baso # Seg Neutrophils % Seg Neutrophils # Sodium 130 L Potassium 3.3 L Chloride 96.4 L Carbon Dioxide 20 L Anion Gap 17 BUN 27 H Creatinine 7.2 H Estimated GFR 8 BUN/Creatinine Ratio 4 Glucose 71 Calcium 8.4 Total Bilirubin 0.30 AST 11 ALT 5 L Alkaline Phosphatase 68 Total Protein 6.4 Albumin 3.2 L Albumin/Globulin Ratio 1.0 Urine Color Urine Turbidity Urine pH Ur Specific [place] Urine Protein Urine Glucose (UA) Urine Ketones Urine Blood Urine Nitrite Ur Reducing Substances Urine Bilirubin Urine Ictotest Urine Urobilinogen Ur Leukocyte Esterase Urine WBC (Auto) Urine RBC (Auto) U Epithel Cells (Auto) Urine Bacteria (Auto) Urine Mucus Urine Opiates Screen Urine Methadone Screen Ur Barbiturates Screen Ur Phencyclidine Scrn Ur Amphetamines Screen U Benzodiazepines Scrn Urine Cocaine Screen U Marijuana (THC) Screen Drugs of Abuse Note - Differential Diagnosis Lupus flare, polyarthralgia, Critical care attestation.: If time is entered above; I have spent that time in minutes in the direct care of this critically ill patient, excluding procedure time. ED Disposition Clinical Impression: Whole body pain, UTI (urinary tract infection) Disposition: TO HOME OR SELFCARE Is pt being admited?: No Does the pt Need Aspirin: No Condition: Stable Additional Instructions: Return to the emergency department immediately should you develop worsening symptoms, fever, inability to tolerate food or liquid or any other concerns. Prescriptions: traMADol [Ultram] 50 mg PO Q6HR PRN #14 tablet PRN Reason: Pain Referrals: PRIMARY CARE, [Primary Care Provider] - 3-5 Days ALEJANDRO COOLEY MD [Staff Physician] - [facility] (Dr. Cooley is a primary physician. Please follow up with him to be established as a patient) Time of Disposition: 11:04
[2018-01-31 07:16] LABS: Bacteria,Urine 3+ /HPF (Negative)
[2018-01-31 07:21] LABS: Color,Urine Red (Yellow)
[2018-01-31 07:23] LABS: Blood,Urine Large (Negative)
[2018-01-31 07:24] LABS: Bilirubin,Urine Color Interference (Negative); Protein,Urine Color Interference mg/dL (Negative); RBC,Urine > 182.0 /HPF (0.0-6.0); Urobilinogen,Urine < 0.2 mg/dL (<2.0)
[2018-01-31 07:25] LABS: Mucus,Urine 1+ /HPF
[2018-01-31 07:49] LABS: Amphetamine Screen,Urine PRESUMPTIVE NEGATIVE; Benzodiazepines Screen,Urine PRESUMPTIVE NEGATIVE; Cannabinoid Screen,Urine PRESUMPTIVE NEGATIVE; Cocaine Screen,Urine PRESUMPTIVE NEGATIVE; Methadone Screen,Urine PRESUMPTIVE NEGATIVE; Opiate Screen,Urine PRESUMPTIVE NEGATIVE
[2018-01-31] MEDS ORDERED: TORADOL IM ONE (09:02)
[2018-01-31 09:12] LABS: Basophils % (Auto) 0.4 % (0.0-1.8); Eosinophils # (Auto) 0.1 K/mm3 (0.0-0.4); Eosinophils % (Auto) 1.3 % (0.0-4.3); Lymphocytes % (Auto) 8.2 % (13.4-35.0); Mean Corpuscular HGB Conc 31 % (30-34); Mean Corpuscular Hemoglobin 27 pg (28-32); Mean Corpuscular Volume 87 fl (79-97); Monocytes # (Auto) 1.6 K/mm3 (0.0-0.8); Monocytes % (Auto) 13.8 % (0.0-7.3); Platelet Count 256 K/mm3 (140-440); Red Blood Count 3.66 M/mm3 (3.65-5.03)
[2018-01-31 09:17] LABS: Red Cell Distribution Width 24.9 % (13.2-15.2)
[2018-01-31 09:27] LABS: Albumin 3.2 g/dL (3.9-5); Calcium 8.4 mg/dL (8.4-10.2)
[2018-01-31] MEDS ORDERED: ULTRAM PO ONE (11:01)
[2018-01-31 12:29] VITALS: BP 150/90
== END 2018-01-31 11:30 | disposition home or self-care (01) ==
LOC: ED 02:22
DX: N39.0 Urinary tract infection, site not specified (principal); M79.1 Myalgia; I10 Essential (primary) hypertension; M19.90 Unspecified osteoarthritis, unspecified site; G43.909 Migraine, unspecified, not intractable, without status migrainosus; J45.909 Unspecified asthma, uncomplicated; F17.200 Nicotine dependence, unspecified, uncomplicated
CPT/HCPCS: 36415; 80053; 80307; 81001; 85025; 96372; 99283; J1200; J1885; J2405; J3010; J0360

== ENCOUNTER 2018-02-24 15:41 | Inpatient (IN) | payer MEDICARE ==
[2018-02-24] MEDS ORDERED: KEPPRA 1,000 MG/NS 0.75% 100ML 1,000 MG/100 ML BAG IV ONE (17:13)
[2018-02-24] MEDS ORDERED: APRESOLINE IV ONE ×3 (17:33→22:03)
--- NOTE | 2018-02-24 17:44 | Emergency Department Report ---
HPI - General Chief Complaint: Seizure Time Seen by Provider: 02/24/18 17:04 - HPI HPI: 27-year-old Zaynab female presents to the emergency department via EMS with a report of some seizure-like activity that started upon completion of dialysis today. Patient presents in a postictal state responsive to tactile or painful stimuli only and therefore a poor historian. She has a past medical history of asthma, migraines, hypertension, seizures, lupus and end-stage renal disease on hemodialysis on Friday//Friday. Her ecosystem ecology professor is Dr. Hardin. ED Past Medical Hx - Past Medical History Previous Medical History?: Yes Hx Hypertension: Yes Hx Heart Attack/AMI: No Hx Congestive Heart Failure: No Hx Diabetes: No Hx Deep Vein Thrombosis: No Hx Pulmonary Embolism: No Hx Liver Disease: No Hx Renal Disease: Yes Hx Sickle Cell Disease: No Hx Arthritis: Yes Hx Headaches / Migraines: Yes Hx Seizures: Yes Hx Kidney Stones: No Hx Asthma: Yes Hx COPD: No Hx Dementia: No Additional medical history: Lupus - Surgical History Past Surgical History?: Yes Hx Coronary Stent: No Hx Pacemaker: No Hx Internal Defibrillator: No Additional Surgical History: RIGHT ARM graft - Social History Smoking Status: Unknown if ever smoked Substance Use Type: None - Medications Home Medications: Home Medications Medication Instructions Recorded Confirmed Last Taken Type ALBUTEROL NEB's [Proventil 0.083% 2.5 mg IH Q4HRT PRN #100 nebu 11/25/17 2 Days Ago Rx NEBS] ~12/31/17 Furosemide [Lasix] 80 mg PO QDAY #30 tablet 01/18/18 01/30/18 Unknown Rx Hydralazine HCl 50 mg PO TID #90 tablet 01/18/18 01/30/18 Unknown Rx NIFEdipine XL [Procardia Xl] 60 mg PO Q12HR #60 tablet 01/18/18 01/30/18 Unknown Rx Phenytoin [Dilantin] 100 mg PO TID #90 capsule.er 01/18/18 01/30/18 Unknown Rx Sertraline [Zoloft] 25 mg PO HS #30 tab 01/18/18 01/30/18 Unknown Rx Valsartan [Diovan] 320 mg PO QDAY #30 tablet 01/18/18 01/30/18 Unknown Rx cloNIDine [Catapres] 0.1 mg PO TID #90 tablet 01/18/18 01/30/18 Unknown Rx cloNIDine [Catapres] 0.2 mg PO TID #90 tablet 01/18/18 01/30/18 Unknown Rx predniSONE [Deltasone] 10 mg PO .TAPER #48 tab 01/18/18 01/30/18 Unknown Rx Levofloxacin [Levaquin] 250 mg PO QDAY 3 Days #3 tablet 01/30/18 Unknown Rx traMADol [Ultram] 50 mg PO Q6HR PRN #14 tablet 01/31/18 Unknown Rx ED Review of Systems ROS: Stated complaint: SEIZURE Other details as noted in HPI Comment: Unobtainable due to pts medical conditions Physical Exam - Physical Exam Vital Signs: Vital Signs 02/24/18 17:32 Temperature 98.5 F Pulse Rate 80 Respiratory 28 H Rate Blood Pressure 182/131 O2 Sat by Pulse 99 Oximetry Physical Exam: GENERAL: Patient is ill-appearing. HENT: Normocephalic. Atraumatic. Patient has moist mucous membranes. EYES: Pupils equal reactive to light bilaterally. NECK: Supple. Trachea is midline. CHEST/LUNGS: Clear to auscultation. There is no respiratory distress noted. HEART/CARDIOVASCULAR: Regular. There is no tachycardia. There is no murmur. ABDOMEN: Abdomen is soft, nontender. Patient has normal bowel sounds. There is no abdominal distention. SKIN: Skin is warm and dry. NEURO: The patient appears postictal and is only responsive to tactile and/or painful stimuli. Once she has woken up she just stares and moans. She is not following any commands. MUSCULOSKELETAL: There is no tenderness or deformity. There is no evidence of acute injury. ED Course Vital Signs 02/24/18 17:32 Temperature 98.5 F Pulse Rate 80 Respiratory 28 H Rate Blood Pressure 182/131 O2 Sat by Pulse 99 Oximetry ED Medical Decision Making - Lab Data Result diagrams: 02/24/18 17:47 02/24/18 17:47 - EKG Data -: EKG Interpreted by Me EKG shows normal: sinus rhythm, axis, intervals, QRS complexes, ST-T waves Rate: normal - EKG Data When compared to previous EKG there are: no significant change Interpretation: normal EKG, unchanged when compared t (09/11/17) - Radiology Data Radiology results: report reviewed PROCEDURE: CT HEAD/BRAIN WO CON TECHNIQUE: Computerized tomography of the head was performed without contrast material. HISTORY: AMS, seizures COMPARISON: 01/01/2018 FINDINGS: Skull and scalp: Normal. Paranasal sinuses: Normal. Ventricles and subarachnoid spaces: Normal. Cerebrum: No evidence of hemorrhage, acute infarction or mass . Cerebellum and brainstem: No evidence of hemorrhage, acute infarction or mass. Vasculature: Normal. Comments: None. IMPRESSION: Normal Examination Transcribed By: [facility] [place] Dictated By: MARQUEZ SIERRA Electronically Authenticated By: MARQUEZ SIERRA Signed Date/Time: 02/24/182050 - Medical Decision Making The patient presented postictal and at first upon arrival she was only responsive to painful stimuli. She was reevaluated multiple times throughout her ED stay and she is showing some signs of improvement but she has not returned to baseline mental status. She has spontaneous eye opening but she has remained nonverbal. She does make some moaning sounds but will not answer questions. She appears to be tracking with her eyes. Labs show some renal insufficiency but the patient has end-stage renal disease on hemodialysis. Urine drug screen is positive for opiates and cocaine. CT of the head did not show any bleed, shift, mass or any other acute process. Patient does have a history of seizures and was loaded with 1 g of Keppra. The patient appears to be experiencing a prolonged postictal period versus some altered mental status and therefore will be admitted to the hospital for further evaluation. She has been accepted for admission by the hospitalist, Dr. Mcdaniels. - Differential Diagnosis seizure disorder, substance abuse, TIA, encephalopathy Critical Care Time: No Critical care attestation.: If time is entered above; I have spent that time in minutes in the direct care of this critically ill patient, excluding procedure time. ED Disposition Clinical Impression: Encephalopathy, Hypertensive urgency, Hx of seizure disorder, ESRD (end stage renal disease) on dialysis, Seizure disorder Disposition: OP ADMIT IP TO THIS HOSP Is pt being admited?: Yes Condition: Fair Time of Disposition: 00:47
[2018-02-24 18:09] LABS: Eosinophils % (Auto) 0.6 % (0.0-4.3); Hematocrit 38.2 % (30.3-42.9); Hemoglobin 12.2 gm/dl (10.1-14.3); Lymphocytes # (Auto) 0.8 K/mm3 (1.2-5.4); Lymphocytes % (Auto) 16.5 % (13.4-35.0); Mean Corpuscular HGB Conc 32 % (30-34); Mean Corpuscular Hemoglobin 28 pg (28-32); Mean Corpuscular Volume 87 fl (79-97); Monocytes # (Auto) 0.5 K/mm3 (0.0-0.8); Monocytes % (Auto) 11.6 % (0.0-7.3); Platelet Count 298 K/mm3 (140-440)
[2018-02-24 18:13] LABS: Albumin 3.6 g/dL (3.9-5); BUN/Creatinine Ratio 3; Blood Urea Nitrogen 13 mg/dL (7-17); Calcium 8.7 mg/dL (8.4-10.2); Hemolysis Index 21
[2018-02-24 18:14] LABS: Alanine Aminotransferase < 5 units/L (7-56)
[2018-02-24 18:25] LABS: Red Cell Distribution Width 22.2 % (13.2-15.2)
[2018-02-24 20:16] LABS: Bacteria,Urine 1+ /HPF (Negative); Bilirubin,Urine NEG (Negative); Blood,Urine NEG (Negative); Color,Urine Yellow (Yellow); Mucus,Urine FEW /HPF; Urobilinogen,Urine < 2.0 mg/dL (<2.0); WBC,Urine < 1.0 /HPF (0.0-6.0)
[2018-02-24 20:35] LABS: Amphetamine Screen,Urine PRESUMPTIVE NEGATIVE; Benzodiazepines Screen,Urine PRESUMPTIVE NEGATIVE; Cannabinoid Screen,Urine PRESUMPTIVE NEGATIVE; Methadone Screen,Urine PRESUMPTIVE NEGATIVE
[2018-02-24 20:47] LABS: Cocaine Screen,Urine PRESUMPTIVE POSITIVE; Opiate Screen,Urine PRESUMPTIVE POSITIVE
--- NOTE | 2018-02-24 20:55 | Cat Scan Report ---
FINAL REPORT PROCEDURE: CT HEAD/BRAIN WO CON TECHNIQUE: Computerized tomography of the head was performed without contrast material. HISTORY: AMS, seizures COMPARISON: 01/01/2018 FINDINGS: Skull and scalp: Normal. Paranasal sinuses: Normal. Ventricles and subarachnoid spaces: Normal. Cerebrum: No evidence of hemorrhage, acute infarction or mass . Cerebellum and brainstem: No evidence of hemorrhage, acute infarction or mass. Vasculature: Normal. Comments: None. IMPRESSION: Normal Examination
--- NOTE | 2018-02-24 23:13 | Cat Scan Report ---
FINAL REPORT PROCEDURE: CT ABDOMEN PELVIS WO CON TECHNIQUE: Computerized axial tomography of the abdomen and pelvis was performed without intravenous contrast. This study is performed without intravascular contrast material and its sensitivity for abdominal and pelvic pathology, including neoplasms, inflammation, abscess, free fluid, thrombosis, arterial dissection and infarction, is reduced compared with a contrast enhanced study. HISTORY: abd pain COMPARISON: 01/30/2018 FINDINGS: Mild degree cardiomegaly is noted. Liver, spleen, pancreas and adrenal glands are within normal limits. There thinning of bilateral renal parenchyma with bilateral perinephric fat stranding. There are no renal calculi or hydronephrosis. Urinary bladder is minimally filled with normal outlines. Aorta is of normal caliber. Mild degree free fluid is noted in the pelvic cavity. There is no free air. Gallbladder is unremarkable. Small bowel loops are within normal limits. Moderate degree residual stool is noted. Appendix is not distinctly visualized. There are no inflammatory changes in the right lower quadrant. Vertebral height is normal. There is mild degree generalized subcutaneous fat induration. IMPRESSION: Bilateral renal parenchymal thinning is noted most likely representing end-stage renal disease. Mild degree ascites Mild degree cardiomegaly. Generalized subcutaneous edema .
[2018-02-24] MEDS ORDERED: SODIUM CHLORIDE FLUSH SYRINGE 10 ML IV PRN (23:54)
--- NOTE | 2018-02-24 23:56 | History and Physical Report ---
History of Present Illness Date of examination: 02/24/18 History of present illness: 27-year-old and a history of lupus, end-stage renal disease on dialysis Friday, Friday, seizure, asthma, hypertension was brought to the emergency room because she had a seizure at dialysis. Patient is postictal, review of systems unobtainable. Old records reviewed. Status post keppra in ER PAST MEDICAL HISTORY:lupus, end-stage renal disease on dialysis Friday , Friday, seizure, asthma, hypertension PAST SURGICAL HISTORY:avf FAMILY HISTORY:hypertension SOCIAL HISTORY: Unknown Medications and Allergies Allergies Allergy/AdvReac Type Severity Reaction Status Date / Time acetaminophen [From Percocet] Allergy Itching Verified 10/22/17 06:50 metoprolol Allergy Unknown Verified 10/22/17 06:50 oxycodone [From Percocet] Allergy Itching Verified 10/22/17 06:50 oxycodone HCl [From Percocet] AdvReac Unknown Verified 10/22/17 06:50 Home Medications Medication Instructions Recorded Confirmed Last Taken Type ALBUTEROL NEB's [Proventil 0.083% 2.5 mg IH Q4HRT PRN #100 nebu 11/25/17 2 Days Ago Rx NEBS] ~12/31/17 Furosemide [Lasix] 80 mg PO QDAY #30 tablet 01/18/18 01/30/18 Unknown Rx Hydralazine HCl 50 mg PO TID #90 tablet 01/18/18 01/30/18 Unknown Rx NIFEdipine XL [Procardia Xl] 60 mg PO Q12HR #60 tablet 01/18/18 01/30/18 Unknown Rx Phenytoin [Dilantin] 100 mg PO TID #90 capsule.er 01/18/18 01/30/18 Unknown Rx Sertraline [Zoloft] 25 mg PO HS #30 tab 01/18/18 01/30/18 Unknown Rx Valsartan [Diovan] 320 mg PO QDAY #30 tablet 01/18/18 01/30/18 Unknown Rx cloNIDine [Catapres] 0.1 mg PO TID #90 tablet 01/18/18 01/30/18 Unknown Rx cloNIDine [Catapres] 0.2 mg PO TID #90 tablet 01/18/18 01/30/18 Unknown Rx predniSONE [Deltasone] 10 mg PO .TAPER #48 tab 01/18/18 01/30/18 Unknown Rx Levofloxacin [Levaquin] 250 mg PO QDAY 3 Days #3 tablet 01/30/18 Unknown Rx traMADol [Ultram] 50 mg PO Q6HR PRN #14 tablet 01/31/18 Unknown Rx Exam - Physical Exam Narrative exam: Gen. appearance: Patient lying in bed, no apparent distress HEENT: Normocephalic, atraumatic, pupils equally round and reactive to light, unable to do extraocular movement and no sclericterus,. No JVD or thyromegaly or nodule,neck supple, no carotid bruit ,mucous membranes dry, no exudate or erythema Heart: S1, S2, regular rate and rhythm Lungs: Clear bilaterally, breathing comfortable Abdomen: Positive bowel sounds, appears tender, soft, nondistended, no organomegaly Extremity:no edema cyanosis, clubbing Neuro: sedated - Constitutional Vitals: Temp Pulse Resp BP Pulse Ox 98.5 F 85 22 171/106 99 02/24/18 17:32 02/24/18 22:48 02/24/18 22:00 02/24/18 22:48 02/24/18 19:00 Results - Labs CBC & Chem 7: 02/24/18 17:47 02/24/18 17:47 Labs: Abnormal lab results 02/24/18 02/24/18 02/24/18 Range/Units 17:47 17:47 19:40 RDW 22.2 H (13.2-15.2) % [place] % (Auto) 11.6 H (0.0-7.3) % Lymph # 0.8 L (1.2-5.4) K/mm3 Seg Neutrophils % 70.3 H (40.0-70.0) % Creatinine 4.7 H (0.7-1.2) mg/dL ALT < 5 L (7-56) units/L Albumin 3.6 L (3.9-5) g/dL Urine pH 8.0 H (5.0-7.0) Assessment and Plan Assessment Seizure, acute on chronic Abdominal pain Substance Abuse End-stage renal disease on dialysis Hypertension Lupus Plan Admit to medicine Start IV Ativan, Keppra, check CT abdomen Consult renal for dialysis Continue appropriate outpatient medications when awake DVT prophylaxis
[2018-02-25] MEDS: ZOFRAN IV PRN ×3 (01:22→17:55)
[2018-02-25] MEDS ORDERED: ATIVAN IV PRN (01:51)
[2018-02-25] MEDS: APRESOLINE IV PRN ×2 (02:11→08:53)
[2018-02-25] MEDS ORDERED: TYLENOL PO PRN (02:30)
[2018-02-25 09:15] LABS: Basophils % (Auto) 0.7 % (0.0-1.8); Eosinophils # (Auto) 0.1 K/mm3 (0.0-0.4); Eosinophils % (Auto) 1.2 % (0.0-4.3); Hematocrit 38.7 % (30.3-42.9); Hemoglobin 12.2 gm/dl (10.1-14.3); Lymphocytes # (Auto) 1.2 K/mm3 (1.2-5.4); Lymphocytes % (Auto) 22.1 % (13.4-35.0); Mean Corpuscular HGB Conc 32 % (30-34); Mean Corpuscular Hemoglobin 27 pg (28-32); Mean Corpuscular Volume 87 fl (79-97); Monocytes # (Auto) 0.8 K/mm3 (0.0-0.8); Monocytes % (Auto) 15.3 % (0.0-7.3); Platelet Count 278 K/mm3 (140-440); Red Blood Count 4.46 M/mm3 (3.65-5.03)
[2018-02-25 09:16] LABS: Red Cell Distribution Width 22.6 % (13.2-15.2)
[2018-02-25] MEDS: LOVENOX SUB-Q SCH (09:19)
[2018-02-25] MEDS: SODIUM CHLORIDE FLUSH SYRINGE 10 ML IV SCH ×2 (10:02→22:38)
[2018-02-25] MEDS: MOTRIN PO PRN (11:50)
[2018-02-25] MEDS: KEPPRA 750 MG in NACL 0.9% 100 ML IV SCH ×2 (11:51→22:16)
[2018-02-25 12:00] LABS: Calcium 8.9 mg/dL (8.4-10.2)
[2018-02-25] MEDS ORDERED: HEPARIN 10,000 UNITS/10 ML IV PRN (12:09)
[2018-02-25] MEDS ORDERED: NACL 0.9% 100 ML IV PRN (12:09)
--- NOTE | 2018-02-25 12:09 | Consultation ---
History of Present Illness - Reason for Consult end stage renal disease - History of Present Illness Mrs. Turner is a 27yo with seizure disorder, SLE and ESRD on HD TTS who presented to the ED on Friday with seizure activity following dialysis treatment. Past History Past Medical History: other (SLE, Hypertension, ESRD on HD, Seizure disorder) Past Surgical History: Other (AV access creation) Social history: no significant social history Family history: no significant family history Medications and Allergies Allergies Allergy/AdvReac Type Severity Reaction Status Date / Time acetaminophen [From Percocet] Allergy Itching Verified 10/22/17 06:50 metoprolol Allergy Unknown Verified 10/22/17 06:50 oxycodone [From Percocet] Allergy Itching Verified 10/22/17 06:50 oxycodone HCl [From Percocet] AdvReac Unknown Verified 10/22/17 06:50 Home Medications Medication Instructions Recorded Confirmed Last Taken Type ALBUTEROL NEB's [Proventil 0.083% 2.5 mg IH Q4HRT PRN #100 nebu 11/25/17 2 Days Ago Rx NEBS] ~12/31/17 Furosemide [Lasix] 80 mg PO QDAY #30 tablet 01/18/18 01/30/18 Unknown Rx Hydralazine HCl 50 mg PO TID #90 tablet 01/18/18 01/30/18 Unknown Rx NIFEdipine XL [Procardia Xl] 60 mg PO Q12HR #60 tablet 01/18/18 01/30/18 Unknown Rx Phenytoin [Dilantin] 100 mg PO TID #90 capsule.er 01/18/18 01/30/18 Unknown Rx Sertraline [Zoloft] 25 mg PO HS #30 tab 01/18/18 01/30/18 Unknown Rx Valsartan [Diovan] 320 mg PO QDAY #30 tablet 01/18/18 01/30/18 Unknown Rx cloNIDine [Catapres] 0.1 mg PO TID #90 tablet 01/18/18 01/30/18 Unknown Rx cloNIDine [Catapres] 0.2 mg PO TID #90 tablet 01/18/18 01/30/18 Unknown Rx predniSONE [Deltasone] 10 mg PO .TAPER #48 tab 01/18/18 01/30/18 Unknown Rx Levofloxacin [Levaquin] 250 mg PO QDAY 3 Days #3 tablet 01/30/18 Unknown Rx traMADol [Ultram] 50 mg PO Q6HR PRN #14 tablet 01/31/18 Unknown Rx Active Meds: Active Medications Enoxaparin Sodium (Lovenox) 30 mg SUB-Q QDAY [facility] Last Admin: 02/25/18 09:19 Dose: Not Given Hydralazine HCl (Apresoline) 5 mg IV Q6H PRN PRN Reason: Hypertension Last Admin: 02/25/18 08:53 Dose: 5 mg Levetiracetam 750 mg/ Sodium (Chloride) 107.5 mls @ 400 mls/hr IV Q12HR [facility] Last Admin: 02/25/18 11:51 Dose: 400 mls/hr Ibuprofen (Motrin) 600 mg PO Q6H PRN PRN Reason: Pain, Mild (1-3) Last Admin: 02/25/18 11:50 Dose: 600 mg Lorazepam (Ativan) 1 mg IV Q4H PRN PRN Reason: Seizures Last Admin: 02/25/18 02:15 Dose: 1 mg Ondansetron HCl (Zofran) 4 mg IV Q4H PRN PRN Reason: Nausea And Vomiting Last Admin: 02/25/18 11:01 Dose: 4 mg Sodium Chloride (Sodium Chloride Flush Syringe 10 Ml) 10 ml IV BID [facility] Last Admin: 02/25/18 10:02 Dose: 10 ml Sodium Chloride (Sodium Chloride Flush Syringe 10 Ml) 10 ml IV PRN PRN PRN Reason: LINE FLUSH Review of Systems All systems: negative Exam - Vital Signs Vital signs: Vital Signs Temp Pulse Resp BP Pulse Ox 98.5 F 80 28 H 182/131 99 02/24/18 17:32 02/24/18 17:32 02/24/18 17:32 02/24/18 17:32 02/24/18 17:32 - General Appearance General appearance: well-developed, well-nourished EENT: ATNC Neck: Present: neck supple Respiratory: Clear to Ascultation Heart: regular, S1S2 Gastrointestinal: Present: normal Integumentary: no rash, warm and dry Neurologic: no focal deficit Musculoskeletal: Present: other (no edema) Psychiatric: cooperative Results - Lab Results 02/25/18 07:31 02/25/18 07:31 Most recent lab results Calcium 8.9 mg/dL (8.4-10.2) 02/25/18 07:31 Assessment and Plan Impression: * End stage renal disease on HD * Seizure disorder * Hypertension * SLE * Anemia secondary to ESRD * Substance abuse Plan: * No acute indication for dialysis today * Continue hemodialysis TTS * UF as tolerated * Continue antiHTN medications - meds adjusted yesterday * Epogen TIW prn
[2018-02-25] MEDS ORDERED: BENADRYL PO PRN (14:59)
[2018-02-25] MEDS ORDERED: APRESOLINE IV ONE ×2 (15:02→16:45)
[2018-02-25] MEDS ORDERED: PROVENTIL IH PRN (16:32)
[2018-02-25] MEDS ORDERED: ULTRAM PO PRN (16:32)
[2018-02-25] MEDS ORDERED: APRESOLINE IV PRN (16:34)
--- NOTE | 2018-02-25 16:36 | Progress Note ---
Assessment and Plan Assessment and plan: --Breakthrough seizures; patient claims complaints with medications Started Keppra 750 twice a day, seizure precautions, neurology consult --End-stage renal disease on hemodialysis; Nephrology following, which the per schedule --Hypertensive urgency; continue current antihypertensives and when necessary medications --History of substance abuse; cocaine, counseling done patient strongly advised to quit recreational drug --Abdominal pain CT abdomen and pelvis negative; Management and supportive care --DVT prophylaxis; heparin and renal dose Consults and recommendations noted Possible discharge in 1-2 days if stable History Interval history: Patient seen and examined medical records reviewed Admitted with witnessed seizure, patient claims complaints with her antiepileptic medications Alert and awake no new episodes of seizure, uncontrolled blood pressures Vital signs reviewed Hospitalist Physical - Constitutional Vitals: Temp Pulse Resp BP Pulse Ox 99.5 F 132 H 20 174/118 100 02/25/18 07:59 02/25/18 08:53 02/25/18 07:59 02/25/18 08:53 02/25/18 07:59 General appearance: Present: no acute distress, well-nourished - EENT Eyes: Present: PERRL, EOM intact - Neck Neck: Present: supple, normal ROM - Respiratory Respiratory effort: normal Respiratory: bilateral: diminished, rales, negative: rhonchi, wheezing - Cardiovascular Rhythm: regular Heart Sounds: Present: S1 & S2 - Extremities Extremities: no ischemia, No edema - Abdominal General gastrointestinal: soft, non-tender, non-distended, normal bowel sounds - Integumentary Integumentary: Present: clear, warm - Psychiatric Psychiatric: appropriate mood/affect, cooperative - Neurologic Neurologic: CNII-XII intact, moves all extremities Results - Labs CBC & Chem 7: 02/25/18 07:31 02/25/18 07:31 Labs: Laboratory Last Values WBC 5.2 K/mm3 (4.5-11.0) 02/25/18 07:31 RBC 4.46 M/mm3 (3.65-5.03) 02/25/18 07:31 Hgb 12.2 gm/dl (10.1-14.3) 02/25/18 07:31 Hct 38.7 % (30.3-42.9) 02/25/18 07:31 MCV 87 fl (79-97) 02/25/18 07:31 MCH 27 pg (28-32) L 02/25/18 07:31 MCHC 32 % (30-34) 02/25/18 07:31 RDW 22.6 % (13.2-15.2) H 02/25/18 07:31 Plt Count 278 K/mm3 (140-440) 02/25/18 07:31 Lymph % (Auto) 22.1 % (13.4-35.0) 02/25/18 07:31 [place] % (Auto) 15.3 % (0.0-7.3) H 02/25/18 07:31 Eos % (Auto) 1.2 % (0.0-4.3) 02/25/18 07:31 Baso % (Auto) 0.7 % (0.0-1.8) 02/25/18 07:31 Lymph # 1.2 K/mm3 (1.2-5.4) 02/25/18 07:31 [place] # 0.8 K/mm3 (0.0-0.8) 02/25/18 07:31 Eos # 0.1 K/mm3 (0.0-0.4) 02/25/18 07:31 Baso # 0.0 K/mm3 (0.0-0.1) 02/25/18 07:31 Seg Neutrophils % 60.7 % (40.0-70.0) 02/25/18 07:31 Seg Neutrophils # 3.2 K/mm3 (1.8-7.7) 02/25/18 07:31 Sodium 139 mmol/L (137-145) 02/25/18 07:31 Potassium 4.1 mmol/L (3.6-5.0) 02/25/18 07:31 Chloride 98.9 mmol/L (98-107) 02/25/18 07:31 Carbon Dioxide 23 mmol/L (22-30) 02/25/18 07:31 Anion Gap 21 mmol/L 02/25/18 07:31 BUN 17 mg/dL (7-17) 02/25/18 07:31 Creatinine 6.3 mg/dL (0.7-1.2) H 02/25/18 07:31 Estimated GFR 10 ml/min 02/25/18 07:31 BUN/Creatinine Ratio 3 % 02/25/18 07:31 Glucose 62 mg/dL (65-100) L 02/25/18 07:31 Calcium 8.9 mg/dL (8.4-10.2) 02/25/18 07:31 Total Bilirubin 0.40 mg/dL (0.1-1.2) 02/24/18 17:47 AST 13 units/L (5-40) 02/24/18 17:47 ALT < 5 units/L (7-56) L 02/24/18 17:47 Alkaline Phosphatase 105 units/L (35-129) 02/24/18 17:47 Ammonia 33.0 umol/L (25-60) 02/24/18 20:16 Total Protein 7.3 g/dL (6.3-8.2) 02/24/18 17:47 Albumin 3.6 g/dL (3.9-5) L 02/24/18 17:47 Albumin/Globulin Ratio 1.0 % 02/24/18 17:47 TSH 0.859 mlU/mL (0.270-4.200) 02/24/18 19:40 HCG, Qual Negative (Negative) 02/24/18 17:47 Urine Color Yellow (Yellow) 02/24/18 19:40 Urine Turbidity Clear (Clear) 02/24/18 19:40 Urine pH 8.0 (5.0-7.0) H 02/24/18 19:40 Ur Specific [place] 1.005 (1.003-1.030) 02/24/18 19:40 Urine Protein 100 mg/dl mg/dL (Negative) 02/24/18 19:40 Urine Glucose (UA) 50 mg/dL (Negative) 02/24/18 19:40 Urine Ketones Neg mg/dL (Negative) 02/24/18 19:40 Urine Blood Neg (Negative) 02/24/18 19:40 Urine Nitrite Neg (Negative) 02/24/18 19:40 Urine Bilirubin Neg (Negative) 02/24/18 19:40 Urine Urobilinogen < 2.0 mg/dL (<2.0) 02/24/18 19:40 Ur Leukocyte Esterase Neg (Negative) 02/24/18 19:40 Urine WBC (Auto) < 1.0 /HPF (0.0-6.0) 02/24/18 19:40 Urine RBC (Auto) 1.0 /HPF (0.0-6.0) 02/24/18 19:40 U Epithel Cells (Auto) 2.0 /HPF (0-13.0) 02/24/18 19:40 Urine Bacteria (Auto) 1+ /HPF (Negative) 02/24/18 19:40 Urine Mucus Few /HPF 02/24/18 19:40 Urine Opiates Screen Presumptive positive 02/24/18 19:40 Urine Methadone Screen Presumptive negative 02/24/18 19:40 Ur Barbiturates Screen Presumptive negative 02/24/18 19:40 Ur Phencyclidine Scrn Presumptive negative 02/24/18 19:40 Ur Amphetamines Screen Presumptive negative 02/24/18 19:40 U Benzodiazepines Scrn Presumptive negative 02/24/18 19:40 Urine Cocaine Screen Presumptive positive 02/24/18 19:40 U Marijuana (THC) Screen Presumptive negative 02/24/18 19:40 Drugs of Abuse Note Disclamer 02/24/18 19:40 Plasma/Serum Alcohol < 0.01 % (0-0.07) 02/24/18 17:47
[2018-02-25] MEDS: TORADOL IV SCH ×2 (17:54→23:52)
[2018-02-25] MEDS ORDERED: NON-FORMULARY (Hydralazine Hcl [Hydralazine Hcl] 50 MG) PO SCH (20:00)
[2018-02-25] MEDS ORDERED: CATAPRES PO SCH (20:00)
[2018-02-25] MEDS ORDERED: ZOLOFT PO SCH (22:00)
[2018-02-25] MEDS: PROCARDIA XL PO SCH (22:22)
[2018-02-25] MEDS: CATAPRES PO SCH (22:22)
[2018-02-25] MEDS: APRESOLINE PO SCH (22:56)
[2018-02-26] MEDS: KEPPRA 750 MG in NACL 0.9% 100 ML IV SCH (09:44)
[2018-02-26] MEDS: LOVENOX SUB-Q SCH (09:44)
[2018-02-26] MEDS: CATAPRES PO SCH ×2 (09:45→15:25)
[2018-02-26] MEDS: PROCARDIA XL PO SCH (09:45)
[2018-02-26] MEDS: APRESOLINE PO SCH ×2 (09:45→15:26)
[2018-02-26] MEDS: SODIUM CHLORIDE FLUSH SYRINGE 10 ML IV SCH (09:57)
[2018-02-26] MEDS ORDERED: NON-FORMULARY (Furosemide [Lasix] 80 MG) PO SCH (10:00)
[2018-02-26] MEDS ORDERED: LASIX PO SCH (10:00)
[2018-02-26] MEDS ORDERED: NON-FORMULARY (Valsartan [Diovan] 320 MG) PO SCH (10:00)
[2018-02-26] MEDS ORDERED: DIOVAN PO SCH (10:00)
--- NOTE | 2018-02-26 10:32 | Progress Note ---
Assessment and Plan Impression: * End stage renal disease on HD * Seizure disorder * Hypertension * SLE * Anemia secondary to ESRD * Substance abuse Plan: * Continue hemodialysis TTS * UF as tolerated * Continue antiHTN medications - meds adjusted yesterday * Epogen TIW prn * Renal diet Subjective Date of service: 02/26/18 Interval history: Patient seen on dialysis. She has no complaints Objective - Vital Signs Vital signs: Vital Signs - 12hr 02/25/18 02/26/18 02/26/18 22:56 02:35 07:50 Temperature 98.2 F Pulse Rate 107 H 77 91 H Respiratory 19 Rate Blood Pressure 205/107 178/118 Blood Pressure 155/95 [Left] O2 Sat by Pulse 97 Oximetry 02/26/18 09:45 Temperature Pulse Rate Respiratory Rate Blood Pressure 178/118 Blood Pressure [Left] O2 Sat by Pulse Oximetry - General Appearance General appearance: well-developed, well-nourished EENT: ATNC Respiratory: Present: Clear to Ascultation Cardiology: regular, S1S2 Gastrointestinal: normal, no distended, no masses Integumentary: no rash, warm and dry Musculoskeletal: other (no edema) Psychiatric: cooperative - Lab 02/25/18 07:31 02/25/18 07:31 Most recent lab results Calcium 8.9 mg/dL (8.4-10.2) 02/25/18 07:31
[2018-02-26] MEDS: TORADOL IV SCH (15:25)
[2018-02-26] MEDS: MOTRIN PO PRN (15:30)
[2018-02-26 18:02] VITALS: BP 153/102
--- NOTE | 2018-02-26 18:46 | Discharge Summary ---
Providers - Providers Date of Admission: 02/24/18 23:54 Date of discharge: 02/26/18 Attending physician: BEN ALFRED 02/25/18 01:51 Consult to Physician [CONS] Routine Comment: Consulting Provider: PADMINI NELSON Physician Instructions: Reason For Exam: hd Primary care physician: ORTHODONTIC ASSISTANT Hospitalization Condition: Fair Disposition: DC-01 TO HOME OR SELFCARE Time spent for discharge: 33 min Core Measure Documentation - Palliative Care Palliative Care/ Comfort Measures: Not Applicable - Core Measures Any of the following diagnoses?: none Exam - Constitutional Vitals: Temp Pulse Resp BP Pulse Ox 98.8 F 107 H 18 153/102 98 02/26/18 16:32 02/26/18 16:32 02/26/18 16:32 02/26/18 16:32 02/26/18 16:32 General appearance: Present: no acute distress, well-nourished - EENT Eyes: Present: PERRL, EOM intact - Neck Neck: Present: supple, normal ROM - Respiratory Respiratory effort: normal Respiratory: bilateral: diminished, negative: rales, rhonchi, wheezing - Cardiovascular Rhythm: regular Heart Sounds: Present: S1 & S2 - Extremities Extremities: no ischemia, No edema - Abdominal General gastrointestinal: Present: soft, non-tender, non-distended, normal bowel sounds - Integumentary Integumentary: Present: clear, warm - Musculoskeletal Musculoskeletal: strength equal bilaterally - Psychiatric Psychiatric: appropriate mood/affect, cooperative - Neurologic Neurologic: CNII-XII intact, moves all extremities Plan Activity: advance as tolerated, no driving until cleared by PCP, other (seizure precautions) Diet: renal Additional Instructions: Follow nephrology/HD per schedule[TTS]. Seizure precautions, advised to follow private neurologist in [address] until cleared by primary physician. Do Not operate heavy machinery Follow up with: ODIN LYMAN MD [Primary Care Provider] - 3-5 Days ZULEYMA CARRILLO MD [Staff Physician] - 7 Days PADMINI NELSON MD [Staff Physician] - 7 Days Prescriptions: levETIRAcetam [Keppra TAB] 750 mg PO BID #60 tablet
== END 2018-02-26 21:05 | disposition home or self-care (01) | DRG 100 ==
LOC: ED 15:41 → 3A 23:54
PROVIDERS: ADMIT Internal Medicine; ATTEND Internal Medicine
PROC: 5A1D70Z Performance of Urinary Filtration, Intermittent, Less than 6 Hours Per Day (ICD-10-PCS; principal; 2018-02-26)
DX: G40.909 Epilepsy, unspecified, not intractable, without status epilepticus (principal); N18.6 End stage renal disease; G93.40 Encephalopathy, unspecified; I16.1 Hypertensive emergency; I12.0 Hypertensive chronic kidney disease with stage 5 chronic kidney disease or end stage renal disease; M32.9 Systemic lupus erythematosus, unspecified; Z99.2 Dependence on renal dialysis; J45.998 Other asthma; D63.1 Anemia in chronic kidney disease; I16.0 Hypertensive urgency; F14.10 Cocaine abuse, uncomplicated; Z71.51 Drug abuse counseling and surveillance of drug abuser
CPT/HCPCS: 36415; 70450; 74176; 80048; 80053; 80307; 80320; 81001; 82140; 84443; 84703; 85025; 93005; 93010; G0480; J0360; J1644; J1650; J1885; J1953; J2060; J2405

== ENCOUNTER 2018-04-29 07:51 | Emergency (ER) | payer MEDICARE ==
[2018-04-29] MEDS ORDERED: MOTRIN PO ONE (09:05)
[2018-04-29] MEDS ORDERED: KEPPRA 1,000 MG/NS 0.75% 100ML 1,000 MG/100 ML BAG IV ONE (09:05)
[2018-04-29 09:06] LABS: Albumin 3.5 g/dL (3.9-5); Calcium 8.5 mg/dL (8.4-10.2)
[2018-04-29] MEDS ORDERED: ATIVAN PO ONE (09:13)
--- NOTE | 2018-04-29 09:19 | Emergency Department Report ---
HPI - General Chief Complaint: Seizure Time Seen by Provider: 04/29/18 09:04 - HPI HPI: Room 3 The patient is a 28-year-old female presenting with a chief complaint of seizure. Per EMS patient was reported seizure lasting 3 minutes at home. EMS was called and transported the patient just prior to entering the ED the patient had another seizure lasting 30 seconds with EMS. Patient was administered Versed 2.5 mg IM. Patient was postictal but is now responding. Patient complains of her chronic pain in her leg and back from her arthritis. The patient states she's been compliant with her medications which includes Keppra and Dilantin Location: [facility] Duration: [See above] Quality: Generalized tonic-clonic Severity: Moderate Modifying factors: [see above] Context: [see above] Mode of transportation: [not driving] ED Past Medical Hx - Past Medical History Hx Hypertension: Yes Hx Congestive Heart Failure: Yes Hx Renal Disease: Yes Hx Arthritis: Yes Hx Headaches / Migraines: Yes Hx Seizures: Yes Hx Asthma: Yes Additional medical history: Lupus - Surgical History Additional Surgical History: RIGHT ARM graft - Family History Family history: no significant - Social History Smoking Status: Former Smoker (none 2.5 months) Substance Use Type: None - Medications Home Medications: Home Medications Medication Instructions Recorded Confirmed Last Taken Type Hydroxychloroquine [Plaquenil] 200 mg PO QDAY 04/21/18 04/29/18 Unknown History Clonidine HCl [Catapres] 0.3 mg PO TID #90 tablet 04/23/18 04/29/18 Unknown Rx Furosemide [Lasix] 80 mg PO QDAY #30 tablet 04/23/18 04/29/18 Unknown Rx Hydralazine HCl 50 mg PO TID #90 tablet 04/23/18 04/29/18 Unknown Rx Sertraline [Zoloft] 25 mg PO HS #30 tab 04/23/18 04/29/18 Unknown Rx Amoxicillin [Amoxicillin TAB] 875 mg PO BID #14 tablet 04/29/18 Unknown Rx levETIRAcetam [Keppra TAB] 750 mg PO BID #60 tablet 04/29/18 Unknown Rx predniSONE [Deltasone] 10 mg PO QDAY 04/29/18 04/29/18 Unknown History ED Review of Systems ROS: Stated complaint: SEIZURE Other details as noted in HPI Constitutional: fever (in ED) Musculoskeletal: arthralgia, myalgia Neurological: other (seizure) Physical Exam - Physical Exam Vital Signs: Vital Signs 04/29/18 08:13 Temperature 103.6 F H Pulse Rate 121 H Respiratory 35 H Rate Blood Pressure 190/140 Blood Pressure 190/140 [Left] O2 Sat by Pulse 100 Oximetry Physical Exam: GENERAL: The patient is well-developed well-nourished female lying on stretcher not appearing to be in acute distress. [] HEENT: Normocephalic. Atraumatic. Extraocular motions are intact. Patient has moist mucous membranes. NECK: Supple. Trachea midline CHEST/LUNGS: Clear to auscultation. There is no respiratory distress noted. HEART/CARDIOVASCULAR: Regular. There is tachycardia. There is no gallop rub or murmur. ABDOMEN: Abdomen is soft, nontender. Patient has normal bowel sounds. There is no abdominal distention. SKIN: There is no rash. There is no edema. There is no diaphoresis. NEURO: The patient is awake, alert, and oriented. The patient is cooperative. The patient has normal speech MUSCULOSKELETAL: There is no evidence of acute injury. ED Course Vital Signs 04/29/18 08:13 Temperature 103.6 F H Pulse Rate 121 H Respiratory 35 H Rate Blood Pressure 190/140 Blood Pressure 190/140 [Left] O2 Sat by Pulse 100 Oximetry ED Medical Decision Making - Lab Data Result diagrams: 04/29/18 11:30 04/29/18 08:40 Laboratory Tests 04/29/18 04/29/18 04/29/18 08:40 09:27 11:30 WBC 11.7 H RBC 3.72 Hgb 11.1 Hct 34.5 MCV 93 MCH 30 MCHC 32 RDW 19.8 H Plt Count 339 Lymph % (Auto) Pharmacy District Manager [place] % (Auto) Pharmacy District Manager Eos % (Auto) Pharmacy District Manager Baso % (Auto) Pharmacy District Manager Lymph # Pharmacy District Manager [place] # Pharmacy District Manager Eos # Pharmacy District Manager Baso # Pharmacy District Manager Seg Neutrophils % Pharmacy District Manager Seg Neutrophils # Pharmacy District Manager Sodium 135 L Potassium 4.9 Chloride 99.7 Carbon Dioxide 20 L Anion Gap 20 BUN 26 H Creatinine 5.7 H Estimated GFR 11 BUN/Creatinine Ratio 5 Glucose 68 Calcium 8.5 Total Bilirubin 0.30 AST 13 ALT 5 L Alkaline Phosphatase 85 Total Protein 7.0 Albumin 3.5 L Albumin/Globulin Ratio 1.0 Phenytoin 3.3 L - Radiology Data Radiology results: report reviewed (chest x-ray), image reviewed (chest x-ray) interpreted by me: Chest x-ray-no focal infiltrates, no pneumothorax Findings [facility] [address] [place] [address] XRay Report Signed Patient: SANDRA IDCKEY MR#: [id number] : 1989 Acct:[id number] Age/Sex: 28 / F ADM Date: 04/29/18 Loc: ED Attending Dr: Ordering Physician: ISIAH URBANO MD Date of Service: 04/29/18 Procedure(s): XR chest 1V ap Accession Number(s): [id number] cc: ISIAH URBANO MD Fluoro Time In Minutes: Portable chest: Fever. There is minimal enlargement of the cardiac contour. No vascular congestion there is several areas of linear opacity at the lung bases consistent with atelectasis bilaterally. No current evidence of pleural effusion. Bilateral surgical changes in the upper arms consistent with right AV shunt and left graft with stent. Comparison is made to the prior exam of April 21 demonstrating improvement in the vascular pattern and apparent reduction in small effusions. Impression: Interval improvement in vascular congestion. Transcribed By: [facility] Dictated By: TONY JOHNSON MD Electronically Authenticated By: TONY JOHNSON MD Signed Date/Time: 04/29/18930 DD/DT: 925 TD/TT: 04/29/18930 - Differential Diagnosis seizure, URI, pneumonia Critical care attestation.: If time is entered above; I have spent that time in minutes in the direct care of this critically ill patient, excluding procedure time. ED Disposition Clinical Impression: Seizure, Fever, HTN (hypertension) Disposition: - TO HOME OR SELFCARE Is pt being admited?: No Does the pt Need Aspirin: No Condition: Stable Instructions: Hypertension (ED) Additional Instructions: Return to the emergency department immediately should you develop worsening symptoms, fever, inability to tolerate food or liquid or any other concerns. Prescriptions: Amoxicillin [Amoxicillin TAB] 875 mg PO BID #14 tablet levETIRAcetam [Keppra TAB] 750 mg PO BID #60 tablet Referrals: PRIMARY CAREMD [Primary Care Provider] - 3-5 Days Time of Disposition: 13:02
[2018-04-29] MEDS ORDERED: CATAPRES PO ONE (09:20)
--- NOTE | 2018-04-29 09:49 | XRay Report ---
Portable chest: Fever. There is minimal enlargement of the cardiac contour. No vascular congestion there is several areas of linear opacity at the lung bases consistent with atelectasis bilaterally. No current evidence of pleural effusion. Bilateral surgical changes in the upper arms consistent with right AV shunt and left graft with stent. Comparison is made to the prior exam of April 21 demonstrating improvement in the vascular pattern and apparent reduction in small effusions. Impression: Interval improvement in vascular congestion.
[2018-04-29 11:45] LABS: Hematocrit 34.5 % (30.3-42.9); Hemoglobin 11.1 gm/dl (10.1-14.3); Mean Corpuscular HGB Conc 32 % (30-34); Mean Corpuscular Hemoglobin 30 pg (28-32); Mean Corpuscular Volume 93 fl (79-97); Platelet Count 339 K/mm3 (140-440); Red Blood Count 3.72 M/mm3 (3.65-5.03); Red Cell Distribution Width 19.8 % (13.2-15.2)
[2018-04-29] MEDS ORDERED: CEREBYX IV ONE (12:42)
[2018-04-29] MEDS ORDERED: ROCEPHIN/NS 1 GM/50 ML 1 GM/50 ML BAG IV ONE (12:59)
[2018-04-29] MEDS ORDERED: KEPPRA 1,000 MG in NACL 0.9% 100 ML IV ONE (13:00)
[2018-04-29] MEDS ORDERED: CEREBYX 1,000 MG.PE in NACL 0.9% 100 ML IV ONE (13:30)
[2018-04-29 14:19] VITALS: BP 131/91
== END 2018-04-29 15:00 | disposition home or self-care (01) ==
LOC: ED 07:51
DX: R56.9 Unspecified convulsions (principal); R50.9 Fever, unspecified; M79.1 Myalgia; I11.0 Hypertensive heart disease with heart failure; I50.9 Heart failure, unspecified; M19.90 Unspecified osteoarthritis, unspecified site; G43.909 Migraine, unspecified, not intractable, without status migrainosus; J45.909 Unspecified asthma, uncomplicated; Z87.891 Personal history of nicotine dependence; Z88.6 Allergy status to analgesic agent; Z88.8 Allergy status to other drugs, medicaments and biological substances
CPT/HCPCS: 36415; 71045; 80053; 80185; 85025; 96365; 96367; 96375; 99285; J0696; J1953; Q2009

== ENCOUNTER 2018-04-30 19:56 | Emergency (ER) | payer MEDICARE ==
[2018-04-30] MEDS ORDERED: SUBLIMAZE IM ONE (21:55)
[2018-04-30] MEDS ORDERED: ZOFRAN IM ONE (21:55)
[2018-04-30] MEDS ORDERED: BENADRYL IM ONE (21:55)
[2018-04-30] MEDS ORDERED: MOTRIN PO ONE (21:56)
--- NOTE | 2018-04-30 22:01 | Emergency Department Report ---
HPI - General Chief Complaint: Pain General Time Seen by Provider: 04/30/18 21:47 - HPI HPI: Room 3 The patient is a 28-year-old female presenting with a chief complaint of bone pain. The patient has history of lupus and states after receiving hemodialysis today she began having diffuse bone pain. The patient states she felt as though she was "shrinking." The patient describes the pain as sharp and aching in nature. Patient denies history of fever at home. The patient gets her pain a score of 10/10 Location: Diffuse body Duration: One day Quality: Sharp/aching Severity: 10/10 Modifying factors: [see above] Context: [see above] Mode of transportation: [not driving] ED Past Medical Hx - Past Medical History Hx Hypertension: Yes Hx Congestive Heart Failure: Yes Hx Renal Disease: Yes Hx Arthritis: Yes Hx Headaches / Migraines: Yes Hx Seizures: Yes Hx Asthma: Yes Additional medical history: Lupus - Surgical History Additional Surgical History: RIGHT ARM graft - Family History Family history: no significant - Social History Smoking Status: Current Some Day Smoker Substance Use Type: None (denies illicit drug use) - Medications Home Medications: Home Medications Medication Instructions Recorded Confirmed Last Taken Type Hydroxychloroquine [Plaquenil] 200 mg PO QDAY 04/21/18 04/29/18 Unknown History Clonidine HCl [Catapres] 0.3 mg PO TID #90 tablet 04/23/18 04/29/18 Unknown Rx Furosemide [Lasix] 80 mg PO QDAY #30 tablet 04/23/18 04/29/18 Unknown Rx Hydralazine HCl 50 mg PO TID #90 tablet 04/23/18 04/29/18 Unknown Rx Sertraline [Zoloft] 25 mg PO HS #30 tab 04/23/18 04/29/18 Unknown Rx Amoxicillin [Amoxicillin TAB] 875 mg PO BID #14 tablet 04/29/18 Unknown Rx levETIRAcetam [Keppra TAB] 750 mg PO BID #60 tablet 04/29/18 Unknown Rx predniSONE [Deltasone] 10 mg PO QDAY 04/29/18 04/29/18 Unknown History traMADol [Ultram] 50 mg PO Q6HR PRN #14 tablet 05/01/18 Unknown Rx ED Review of Systems ROS: Stated complaint: BODY PAIN Other details as noted in HPI Constitutional: denies: fever Eyes: denies: eye pain ENT: denies: throat pain Respiratory: no symptoms reported Cardiovascular: denies: chest pain Endocrine: no symptoms reported Gastrointestinal: denies: abdominal pain Musculoskeletal: myalgia, other ("bone pain") Neurological: denies: headache Physical Exam - Physical Exam Vital Signs: Vital Signs 04/30/18 20:37 Temperature 100.4 F H Pulse Rate 111 H Respiratory 20 Rate Blood Pressure 187/120 O2 Sat by Pulse 99 Oximetry Physical Exam: GENERAL: The patient is well-developed well-nourished female lying on stretcher not appearing to be in acute distress. [] HEENT: Normocephalic. Atraumatic. Extraocular motions are intact. Patient has moist mucous membranes. NECK: Supple. Trachea midline CHEST/LUNGS: Clear to auscultation. There is no respiratory distress noted. HEART/CARDIOVASCULAR: Regular. There is tachycardia. There is no gallop rub or murmur. ABDOMEN: Abdomen is soft, nontender. Patient has normal bowel sounds. There is no abdominal distention. SKIN: There is no rash. There is no edema. There is no diaphoresis. NEURO: The patient is awake, alert, and oriented. The patient is cooperative. The patient has normal speech MUSCULOSKELETAL: There is no evidence of acute injury. ED Course Vital Signs 04/30/18 20:37 Temperature 100.4 F H Pulse Rate 111 H Respiratory 20 Rate Blood Pressure 187/120 O2 Sat by Pulse 99 Oximetry - Reevaluation(s) Reevaluation #1: 05/01/18 00:23 Patient states she feels improved ED Medical Decision Making - Lab Data Result diagrams: 04/30/18 21:59 04/30/18 21:59 Laboratory Tests 04/30/18 04/30/18 21:59 21:59 WBC 7.2 RBC 3.79 Hgb 11.3 Hct 34.7 MCV 92 MCH 30 MCHC 33 RDW 19.2 H Plt Count 375 Lymph % (Auto) 10.2 L [place] % (Auto) 11.9 H Eos % (Auto) 2.3 Baso % (Auto) 0.3 Lymph # 0.7 L [place] # 0.9 H Eos # 0.2 Baso # 0.0 Seg Neutrophils % 75.3 H Seg Neutrophils # 5.4 Sodium 136 L Potassium 4.3 Chloride 97.3 L Carbon Dioxide 23 Anion Gap 20 BUN 17 Creatinine 4.6 H Estimated GFR 14 BUN/Creatinine Ratio 4 Glucose 82 Calcium 8.7 - Differential Diagnosis body aches, lupus flare, myalgias Critical care attestation.: If time is entered above; I have spent that time in minutes in the direct care of this critically ill patient, excluding procedure time. ED Disposition Clinical Impression: Body aches, Lupus (systemic lupus erythematosus) Disposition: TO HOME OR SELFCARE Is pt being admited?: No Does the pt Need Aspirin: No Condition: Stable Additional Instructions: Return to the emergency department immediately should you develop worsening symptoms, fever, inability to tolerate food or liquid or any other concerns. Prescriptions: traMADol [Ultram] 50 mg PO Q6HR PRN #14 tablet PRN Reason: Pain Referrals: PRIMARY CARE, [Primary Care Provider] - 3-5 Days Time of Disposition: 00:25
[2018-04-30 22:35] LABS: Calcium 8.7 mg/dL (8.4-10.2)
[2018-04-30] MEDS ORDERED: CATAPRES PO ONE (22:36)
[2018-04-30 22:39] LABS: Basophils % (Auto) 0.3 % (0.0-1.8); Eosinophils % (Auto) 2.3 % (0.0-4.3); Hematocrit 34.7 % (30.3-42.9); Hemoglobin 11.3 gm/dl (10.1-14.3); Lymphocytes % (Auto) 10.2 % (13.4-35.0); Mean Corpuscular HGB Conc 33 % (30-34); Mean Corpuscular Hemoglobin 30 pg (28-32); Mean Corpuscular Volume 92 fl (79-97); Monocytes % (Auto) 11.9 % (0.0-7.3); Platelet Count 375 K/mm3 (140-440); Red Blood Count 3.79 M/mm3 (3.65-5.03); Red Cell Distribution Width 19.2 % (13.2-15.2)
[2018-04-30 22:40] LABS: Eosinophils # (Auto) 0.2 K/mm3 (0.0-0.4); Lymphocytes # (Auto) 0.7 K/mm3 (1.2-5.4); Monocytes # (Auto) 0.9 K/mm3 (0.0-0.8)
[2018-05-01 00:16] VITALS: BP 162/109
== END 2018-05-01 00:30 | disposition home or self-care (01) ==
LOC: ED 19:56
DX: M79.1 Myalgia (principal); M32.9 Systemic lupus erythematosus, unspecified; I10 Essential (primary) hypertension; I50.9 Heart failure, unspecified; M19.90 Unspecified osteoarthritis, unspecified site; G43.909 Migraine, unspecified, not intractable, without status migrainosus; J45.909 Unspecified asthma, uncomplicated; F17.200 Nicotine dependence, unspecified, uncomplicated
CPT/HCPCS: 36415; 80048; 85025; 96372; 99283; J1200; J2405; J3010

== ENCOUNTER 2018-06-24 05:50 | Emergency (ER) | payer MEDICARE ==
--- NOTE | 2018-06-24 05:56 | Emergency Department Report ---
Stated Complaint: CHEST PAIN - HPI History of Present Illness: I obtained hx from EMS. Ms. Turner presents with chest pain and diffuse body aches. Hx of lupus, ESRD on HD and HTN. MSE screening note: Focused history and physical exam performed. Due to findings the following was ordered: ED Disposition for MSE Condition: Stable
[2018-06-24] MEDS ORDERED: ASPIRIN PO ONE (05:58)
--- NOTE | 2018-06-24 06:05 | Emergency Department Report ---
ED General Adult HPI - General Chief complaint: Chest Pain Stated complaint: CHEST PAIN Time Seen by Provider: 06/24/18 06:02 Source: patient, EMS Mode of arrival: Stretcher Limitations: No Limitations - History of Present Illness Initial comments: 28-year-old female with a history of hypertension, lupus, end-stage renal disease, and seizures presents with the complaint of chest pain. Patient has a complaint of chest pain for 1 day. Patient complains of diffuse body pains as well. Patient states that she went to dialysis yesterday. Patient denies any acute shortness of breath or fever. Patient last had a normal cardiac catheterization on February 23. Patient denies any current cocaine use. Severity scale (0 -10): 10 - Related Data Home Medications Medication Instructions Recorded Confirmed Last Taken Hydroxychloroquine [Plaquenil] 200 mg PO QDAY 04/21/18 05/05/18 Unknown Previous Rx's Medication Instructions Recorded Last Taken Type Clonidine HCl [Catapres] 0.3 mg PO TID #90 tablet 04/23/18 Unknown Rx Furosemide [Lasix] 80 mg PO QDAY #30 tablet 04/23/18 Unknown Rx Hydralazine HCl 50 mg PO TID #90 tablet 04/23/18 Unknown Rx Sertraline [Zoloft] 25 mg PO HS #30 tab 04/23/18 Unknown Rx traMADol [Ultram 50 MG tab] 50 mg PO Q6HR PRN #14 tablet 05/01/18 Unknown Rx HYDROcodone/APAP 10-325 [[place] 1 each PO Q4H PRN #10 tablet 05/10/18 Unknown Rx 10-325 mg TAB] cloNIDine [Catapres] 0.3 mg PO TID #90 tablet 05/10/18 Unknown Rx levETIRAcetam [Keppra TAB] 750 mg PO BID #60 tablet 05/10/18 Unknown Rx predniSONE [Deltasone] 10 mg PO QDAY #30 tablet 05/10/18 Unknown Rx HYDROcodone/APAP 5-325 [[place] 1 each PO Q6HR PRN #15 tablet 06/24/18 Unknown Rx 5/325] Allergies Allergy/AdvReac Type Severity Reaction Status Date / Time acetaminophen [From Percocet] Allergy Itching Verified 04/21/18 08:28 lisinopril Allergy Swelling Verified 04/21/18 08:28 metoprolol Allergy Unknown Verified 04/21/18 08:28 oxycodone [From Percocet] Allergy Itching Verified 04/21/18 08:28 oxycodone HCl [From Percocet] AdvReac Unknown Verified 04/21/18 08:28 ED Review of Systems ROS: Stated complaint: CHEST PAIN Other details as noted in HPI Constitutional: other (body aches) Cardiovascular: chest pain ED Past Medical Hx - Past Medical History Previous Medical History?: Yes Hx Hypertension: Yes Hx Congestive Heart Failure: Yes Hx Diabetes: No Hx Renal Disease: Yes (Tues, Thurs, Sat) Hx Arthritis: Yes Hx Headaches / Migraines: Yes Hx Seizures: Yes Hx Asthma: Yes Hx COPD: No Additional medical history: Lupus - Surgical History Past Surgical History?: Yes Additional Surgical History: RIGHT ARM graft - Social History Smoking Status: Never Smoker Substance Use Type: Prescribed - Medications Home Medications: Home Medications Medication Instructions Recorded Confirmed Last Taken Type Hydroxychloroquine [Plaquenil] 200 mg PO QDAY 04/21/18 05/05/18 Unknown History Clonidine HCl [Catapres] 0.3 mg PO TID #90 tablet 04/23/18 05/05/18 Unknown Rx Furosemide [Lasix] 80 mg PO QDAY #30 tablet 04/23/18 05/05/18 Unknown Rx Hydralazine HCl 50 mg PO TID #90 tablet 04/23/18 05/05/18 Unknown Rx Sertraline [Zoloft] 25 mg PO HS #30 tab 04/23/18 05/05/18 Unknown Rx traMADol [Ultram 50 MG tab] 50 mg PO Q6HR PRN #14 tablet 05/01/18 05/05/18 Unknown Rx HYDROcodone/APAP 10-325 [[place] 1 each PO Q4H PRN #10 tablet 05/10/18 Unknown Rx 10-325 mg TAB] cloNIDine [Catapres] 0.3 mg PO TID #90 tablet 05/10/18 Unknown Rx levETIRAcetam [Keppra TAB] 750 mg PO BID #60 tablet 05/10/18 Unknown Rx predniSONE [Deltasone] 10 mg PO QDAY #30 tablet 05/10/18 Unknown Rx HYDROcodone/APAP 5-325 [[place] 1 each PO Q6HR PRN #15 tablet 06/24/18 Unknown Rx 5/325] ED Physical Exam - General Limitations: No Limitations General appearance: alert, other (uncomfortable; awake) - Head Head exam: Present: atraumatic, normocephalic - Eye Eye exam: Present: normal appearance - ENT ENT exam: Present: mucous membranes moist - Neck Neck exam: Present: normal inspection - Respiratory Respiratory exam: Present: normal lung sounds bilaterally. Absent: respiratory distress - Cardiovascular Cardiovascular Exam: Present: regular rate, normal rhythm, other (fistula present with auscultated thrill). Absent: systolic murmur, diastolic murmur, rubs, gallop - GI/Abdominal GI/Abdominal exam: Present: soft, normal bowel sounds - Extremities Exam Extremities exam: Present: normal inspection - Back Exam Back exam: Present: normal inspection - Neurological Exam Neurological exam: Present: alert, oriented X3 - Psychiatric Psychiatric exam: Present: normal affect, normal mood - Skin Skin exam: Present: warm, dry, intact, normal color. Absent: rash ED Course Vital Signs 06/24/18 06/24/18 06/24/18 05:53 05:59 06:00 Temperature 98.4 F Pulse Rate 107 H 95 H Respiratory 14 20 17 Rate Blood Pressure 205/114 205/114 O2 Sat by Pulse 100 100 100 Oximetry 06/24/18 06/24/18 06/24/18 07:00 07:16 07:30 Temperature Pulse Rate 97 H 94 H 104 H Respiratory 21 12 15 Rate Blood Pressure 209/133 178/115 189/111 O2 Sat by Pulse 100 97 96 Oximetry 06/24/18 06/24/18 06/24/18 07:46 08:00 08:16 Temperature Pulse Rate 108 H 104 H 114 H Respiratory 19 17 19 Rate Blood Pressure 189/111 189/111 178/121 O2 Sat by Pulse 100 100 97 Oximetry 06/24/18 08:20 Temperature Pulse Rate Respiratory 20 Rate Blood Pressure O2 Sat by Pulse Oximetry ED Medical Decision Making - Lab Data Result diagrams: 06/24/18 Unknown 06/24/18 Unknown - EKG Data -: EKG Interpreted by Tn EKG shows normal: sinus rhythm Rate: normal - EKG Data Interpretation: LVH - Radiology Data Radiology results: report reviewed - Medical Decision Making Patient received 20 mg of IM hydralazine to control her blood pressure while in the emergency department. She also received 2 doses of a total of 10 mg IM of morphine which helped to diminished her pain as well. She has no acute electrolyte abnormality and no acute pulmonary edema. Patient to be discharged to follow up with cardiology as an outpatient. Patient has a history of a chronic troponemia and has had prior values of 0.059 and 0.06 in the past and thus troponin for today is not significantly elevated and likely secondary to her end-stage renal disease. - Differential Diagnosis STEMI; NSTEMI; Arryhtmia; Dehydration; Anemia; Pneumothorax; Pneumonia Critical care attestation.: If time is entered above; I have spent that time in minutes in the direct care of this critically ill patient, excluding procedure time. ED Disposition Clinical Impression: Chest pain, ESRD (end stage renal disease), CHF (congestive heart failure) Disposition: TO HOME OR SELFCARE Is pt being admited?: No Condition: Stable Instructions: Chronic Kidney Disease (ED), Chest Pain (ED) Prescriptions: HYDROcodone/APAP 5-325 [[place] 5/325] 1 each PO Q6HR PRN #15 tablet PRN Reason: Pain Referrals: PRIMARY CAREMD [Primary Care Provider] - 3-5 Days ANN ZAVALETA MD [Staff Physician] - 3-5 Days Time of Disposition: 08:33 Print Language: UKRAINIAN
[2018-06-24] MEDS ORDERED: MORPHINE IV ONE (06:09)
[2018-06-24] MEDS ORDERED: ZOFRAN IV ONE (06:10)
[2018-06-24] MEDS ORDERED: ZOFRAN ONE (06:14)
[2018-06-24] MEDS ORDERED: MORPHINE ONE (06:14)
[2018-06-24] MEDS ORDERED: APRESOLINE IM ONE (06:26)
[2018-06-24] MEDS ORDERED: BANOPHEN PO ONE ×2 (06:42→08:01)
[2018-06-24] MEDS ORDERED: BENADRYL PO ONE (06:46)
[2018-06-24 06:50] LABS: Basophils # (Auto) 0.1 K/mm3 (0.0-0.1); Basophils % (Auto) 0.9 % (0.0-1.8); Eosinophils # (Auto) 0.1 K/mm3 (0.0-0.4); Eosinophils % (Auto) 1.2 % (0.0-4.3); Hematocrit 35.9 % (30.3-42.9); Hemoglobin 11.4 gm/dl (10.1-14.3); Lymphocytes % (Auto) 16.8 % (13.4-35.0); Mean Corpuscular HGB Conc 32 % (30-34); Mean Corpuscular Hemoglobin 29 pg (28-32); Mean Corpuscular Volume 91 fl (79-97); Monocytes % (Auto) 15.8 % (0.0-7.3); Platelet Count 316 K/mm3 (140-440); Red Blood Count 3.95 M/mm3 (3.65-5.03); Red Cell Distribution Width 18.8 % (13.2-15.2)
[2018-06-24 07:14] LABS: Calcium 8.5 mg/dL (8.4-10.2)
[2018-06-24 07:31] LABS: INR 1.07 (0.87-1.13)
--- NOTE | 2018-06-24 07:41 | XRay Report ---
AP CHEST: HISTORY: chest pain Compared to the sinus with sinus. Mild increase in cardiomegaly and pulmonary venous congestion is demonstrated. Trace pleural effusions could be present and minor scarring in the left lower lobe is stable. No obvious pneumonia or pneumothorax. The bony structures are demineralized but grossly intact. IMPRESSION: Mild CHF or volume overload.
[2018-06-24] MEDS ORDERED: ZOFRAN IM ONE (07:45)
[2018-06-24] MEDS ORDERED: MORPHINE IM ONE (08:01)
[2018-06-24 08:18] LABS: Chol/HDL Ratio 2.28 %
[2018-06-24 08:22] VITALS: BP 178/121
== END 2018-06-24 09:30 | disposition home or self-care (01) ==
LOC: ED 05:50
DX: R07.89 Other chest pain (principal); I50.9 Heart failure, unspecified; N18.6 End stage renal disease; Z99.2 Dependence on renal dialysis; J45.909 Unspecified asthma, uncomplicated; G43.909 Migraine, unspecified, not intractable, without status migrainosus; M19.90 Unspecified osteoarthritis, unspecified site; I13.2 Hypertensive heart and chronic kidney disease with heart failure and with stage 5 chronic kidney disease, or end stage renal disease; Z88.6 Allergy status to analgesic agent; Z88.4 Allergy status to anesthetic agent
CPT/HCPCS: 36415; 71045; 80048; 80061; 84484; 84703; 85025; 85610; 85730; 93005; 93010; 96372; 96374; 96375; 99285; J0360; J2270; J2405; Q0163

== ENCOUNTER 2018-09-06 05:17 | Inpatient (IN) | payer MEDICARE ==
[2018-09-06 06:03] LABS: Basophils # (Auto) 0.1 K/mm3 (0.0-0.1); Basophils % (Auto) 0.4 % (0.0-1.8); Hemoglobin 11.1 gm/dl (10.1-14.3); Lymphocytes # (Auto) 0.7 K/mm3 (1.2-5.4); Lymphocytes % (Auto) 4.3 % (13.4-35.0); Mean Corpuscular HGB Conc 31 % (30-34); Mean Corpuscular Volume 91 fl (79-97); Monocytes # (Auto) 1.8 K/mm3 (0.0-0.8); Monocytes % (Auto) 10.8 % (0.0-7.3); Platelet Count 196 K/mm3 (140-440); Red Blood Count 3.96 M/mm3 (3.65-5.03)
[2018-09-06 06:04] LABS: Red Cell Distribution Width 20.2 % (13.2-15.2)
[2018-09-06 07:41] LABS: Albumin 3.4 g/dL (3.9-5); BUN/Creatinine Ratio 5; Blood Urea Nitrogen 59 mg/dL (7-17); Calcium 9.2 mg/dL (8.4-10.2); Hemolysis Index 21
[2018-09-06 07:49] LABS: Alanine Aminotransferase < 5 units/L (7-56)
[2018-09-06] MEDS ORDERED: HumuLIN R IV ONE (10:24)
[2018-09-06] MEDS ORDERED: D50W (25GM) Syringe IV ONE (10:24)
[2018-09-06] MEDS ORDERED: CALCIUM GLUCONATE 1,000 MG in NACL 0.9% 100 ML IV ONE (10:24)
[2018-09-06] MEDS ORDERED: PROVENTIL IH ONE (10:30)
[2018-09-06] MEDS ORDERED: SUBLIMAZE IV ONE (10:30)
[2018-09-06] MEDS ORDERED: ZOFRAN IV ONE (10:30)
[2018-09-06] MEDS ORDERED: CATAPRES PO ONE (10:33)
--- NOTE | 2018-09-06 10:37 | Emergency Department Report ---
HPI - General Chief Complaint: Abdominal Pain Time Seen by Provider: 09/06/18 10:18 - HPI HPI: Room 4 The patient is a 28-year-old female presenting with a chief complaint shortness of breath abdominal pain or chest pain. The patient states for the past 3 days she says shortness of breath abdominal and chest pain. The patient states she's been to 2 emergency departments and had CAT scans performed for her chest and abdomen which were read as normal. The patient states she has had some nausea and vomiting. Patient denies history of fever. Patient gets her pain score 10/10 Location: [See above] Duration: 3 days Quality: Pain Severity: 10/10 Modifying factors: [see above] Context: [see above] Mode of transportation: [not driving] ED Past Medical Hx - Past Medical History Previous Medical History?: Yes Hx Hypertension: Yes Hx Congestive Heart Failure: Yes Hx Renal Disease: Yes (Tues, Thurs, Sat) Hx Arthritis: Yes Hx Headaches / Migraines: Yes Hx Seizures: Yes Hx Asthma: Yes Additional medical history: Lupus - Surgical History Past Surgical History?: Yes Additional Surgical History: RIGHT ARM graft - Family History Family history: no significant - Social History Smoking Status: Never Smoker Substance Use Type: Prescribed - Medications Home Medications: Home Medications Medication Instructions Recorded Confirmed Last Taken Type Furosemide [Lasix] 80 mg PO QDAY #30 tablet 04/23/18 08/11/18 Unknown Rx Albuterol Sulfate [Proair 2 puff IH Q4H PRN #1 pump 07/15/18 08/11/18 Unknown Rx Respiclick] Hydroxychloroquine [Plaquenil] 200 mg PO QDAY #30 tablet 07/24/18 08/11/18 Unknown Rx Clonidine HCl [Catapres] 0.3 mg PO TID 08/11/18 08/11/18 Unknown History Labetalol [Normodyne TAB] 200 mg PO TID 08/11/18 08/11/18 Unknown History Losartan [Cozaar] 100 mg PO QDAY 08/11/18 08/11/18 Unknown History Sertraline [Zoloft] 25 mg PO QDAY 08/11/18 08/11/18 Unknown History hydrALAZINE [Apresoline TAB] 100 mg PO TID 08/11/18 08/11/18 Unknown History HYDROcodone/APAP 10-325 [[place] 1 each PO Q4HR PRN #7 tablet 08/14/18 Unknown Rx 10-325 mg TAB] Phenytoin [Dilantin] 100 mg PO TID #90 capsule.er 08/19/18 Unknown Rx levETIRAcetam [Keppra TAB] 1,000 mg PO BID #60 tablet 08/19/18 Unknown Rx ED Review of Systems ROS: Stated complaint: PRABHU Other details as noted in HPI Constitutional: denies: fever Eyes: denies: eye pain ENT: denies: throat pain Respiratory: shortness of breath Cardiovascular: chest pain Endocrine: no symptoms reported Gastrointestinal: abdominal pain, nausea, vomiting Musculoskeletal: back pain Neurological: denies: headache Physical Exam - Physical Exam Vital Signs: Vital Signs 09/06/18 05:23 Temperature 97.9 F Pulse Rate 105 H Blood Pressure 200/106 O2 Sat by Pulse 100 Oximetry Physical Exam: GENERAL: The patient is well-developed well-nourished female on a stretcher appearing to be in moderate discomfort. [] HEENT: Normocephalic. Atraumatic. Extraocular motions are intact. Patient has moist mucous membranes. NECK: Supple. Trachea midline CHEST/LUNGS: Clear to auscultation. There is no respiratory distress noted. HEART/CARDIOVASCULAR: Regular. There is no tachycardia. There is no gallop rub or murmur. ABDOMEN: Abdomen is soft, but diffusely tender to palpation. No rebound or g uarding. Patient has normal bowel sounds. There is no abdominal distention. SKIN: There is no rash. There is no edema. There is no diaphoresis. NEURO: The patient is awake, alert, and oriented. The patient is cooperative. The patient has normal speech MUSCULOSKELETAL: There is no evidence of acute injury. ED Course Vital Signs 09/06/18 05:23 Temperature 97.9 F Pulse Rate 105 H Blood Pressure 200/106 O2 Sat by Pulse 100 Oximetry - Consultations Consultation #1: 09/06/18 11:23 Nephrology paged ED Medical Decision Making - Lab Data Result diagrams: 09/06/18 05:40 09/06/18 05:40 Laboratory Tests 09/06/18 09/06/18 09/06/18 05:40 05:40 05:40 WBC 16.2 H RBC 3.96 Hgb 11.1 Hct 36.0 MCV 91 MCH 28 MCHC 31 RDW 20.2 H Plt Count 196 Lymph % (Auto) 4.3 L [place] % (Auto) 10.8 H Eos % (Auto) 0.0 Baso % (Auto) 0.4 Lymph # 0.7 L [place] # 1.8 H Eos # 0.0 Baso # 0.1 Seg Neutrophils % 84.5 H Seg Neutrophils # 13.7 H Sodium 134 L Potassium 6.2 H* Chloride 92.7 L Carbon Dioxide 12 L Anion Gap 36 BUN 59 H Creatinine 10.9 H Estimated GFR 5 BUN/Creatinine Ratio 5 Glucose 67 Calcium 9.2 Total Bilirubin 0.60 AST 14 ALT < 5 L Alkaline Phosphatase 122 Total Protein 8.1 Albumin 3.4 L Albumin/Globulin Ratio 0.7 HCG, Qual Negative - EKG Data -: EKG Interpreted by Me EKG shows normal: sinus rhythm Rate: tachycardia (140 bpm) - EKG Data When compared to previous EKG there are: previous EKG unavailable Interpretation: nonspecific ST-T wave brandee (biphasic T-wave in lead V5, V6) - Radiology Data Radiology results: report reviewed (chest x-ray), image reviewed (chest x-ray) interpreted by me: Chest x-ray-left lower lobe consolidation/left pleural effusion [facility] [address] [place] [address] XRay Report Signed Patient: SANDRA DICKEY MR#: [id number] : 1990 Acct:[id number] Age/Sex: 28 / F ADM Date: 09/06/18 Loc: ED [address] Dr: Ordering Physician: ISIAH URBANO MD Date of Service: 09/06/18 Procedure(s): XR chest 1V ap Accession Number(s): [id number] cc: ISIAH URBANO MD Fluoro Time In Minutes: FINAL REPORT EXAM: XR CHEST 1V AP HISTORY: chest pain TECHNIQUE: Frontal chest radiograph. PRIORS: 08/18/2018. FINDINGS: Unchanged cardiomegaly. There is mild bilateral pulmonary edema. Patchy left lower lobe opacities are seen. There is a small to moderate left pleural effusion. No pneumothorax. No acute osseous abnormality. IMPRESSION: Small to moderate left pleural effusion with left lower lobe atelectasis versus pneumonia. Cardiomegaly with mild bilateral pulmonary edema. Transcribed By: MG Dictated By: KARTHIK HUMPHREY MD Electronically Authenticated By: KARTHIK OLIVARES MD Signed Date/Time: 09/06/18 1109 DD/ 111 TD/TT: 09/06/18 1110 - Differential Diagnosis end-stage renal disease, hypertensive urgency, volume overload Critical care attestation.: If time is entered above; I have spent that time in minutes in the direct care of this critically ill patient, excluding procedure time. ED Disposition Clinical Impression: ESRD needing dialysis, Hyperkalemia, Acute abdominal pain, Chest pain, Pneumonia Disposition: OP ADMIT IP TO THIS HOSP Is pt being admited?: Yes Does the pt Need Aspirin: Yes Condition: Fair Instructions: Chest Pain (ED), Bacterial Pneumonia (ED), Abdominal Pain (ED) Referrals: PRIMARY CARE, [Primary Care Provider] - 3-5 Days Time of Disposition: 11:22 (hospitalist paged (Dr Henderson))
--- NOTE | 2018-09-06 11:09 | XRay Report ---
FINAL REPORT EXAM: XR CHEST 1V AP HISTORY: chest pain TECHNIQUE: Frontal chest radiograph. PRIORS: 08/18/2018. FINDINGS: Unchanged cardiomegaly. There is mild bilateral pulmonary edema. Patchy left lower lobe opacities are seen. There is a small to moderate left pleural effusion. No pneumothorax. No acute osseous abnormality. IMPRESSION: Small to moderate left pleural effusion with left lower lobe atelectasis versus pneumonia. Cardiomegaly with mild bilateral pulmonary edema.
[2018-09-06] MEDS ORDERED: NACL 0.9% 100 ML IV PRN (11:44)
--- NOTE | 2018-09-06 11:47 | Consultation ---
History of Present Illness - Reason for Consult Consult date: 09/06/18 end stage renal disease, hyperkalemia, accelerated hypertension Requesting physician: ISIAH URBANO - History of Present Illness The patient is a 28-year-old female presenting with a chief complaint shortness of breath abdominal pain or chest pain. The patient states for the past 3 days she says shortness of breath abdominal and chest pain. The patient states she's been to 2 emergency departments and had CAT scans performed for her chest and abdomen which were read as normal. The patient states she has had some nausea and vomiting. Patient denies history of fever. Patient gets her pain score 10/10 Location: [See above] Duration: 3 days Quality: Pain Severity: 10/10 Modifying factors: [see above] Context: [see above] Mode of transportation: [not driving] - Past Medical History Previous Medical History?: Yes Hx Hypertension: Yes Hx Congestive Heart Failure: Yes Hx Renal Disease: Yes (Tues, Thurs, Sat) Hx Arthritis: Yes Hx Headaches / Migraines: Yes Hx Seizures: Yes Hx Asthma: Yes Additional medical history: Lupus - Surgical History Past Surgical History?: Yes Additional Surgical History: RIGHT ARM graft - Family History Family history: no significant - Social History Smoking Status: Never Smoker Substance Use Type: Prescribed ROS: Stated complaint: PRABHU Other details as noted in HPI Constitutional: denies: fever Eyes: denies: eye pain ENT: denies: throat pain Respiratory: shortness of breath Cardiovascular: chest pain Endocrine: no symptoms reported Gastrointestinal: abdominal pain, nausea, vomiting Musculoskeletal: back pain Neurological: denies: headache Medications and Allergies Allergies Allergy/AdvReac Type Severity Reaction Status Date / Time acetaminophen [From Percocet] Allergy Itching Verified 04/21/18 08:28 lisinopril Allergy Swelling Verified 04/21/18 08:28 metoprolol Allergy Unknown Verified 04/21/18 08:28 oxycodone [From Percocet] Allergy Itching Verified 04/21/18 08:28 oxycodone HCl [From Percocet] AdvReac Unknown Verified 04/21/18 08:28 Home Medications Medication Instructions Recorded Confirmed Last Taken Type Furosemide [Lasix] 80 mg PO QDAY #30 tablet 04/23/18 08/11/18 Unknown Rx Albuterol Sulfate [Proair 2 puff IH Q4H PRN #1 pump 07/15/18 08/11/18 Unknown Rx Respiclick] Hydroxychloroquine [Plaquenil] 200 mg PO QDAY #30 tablet 07/24/18 08/11/18 Unknown Rx Clonidine HCl [Catapres] 0.3 mg PO TID 08/11/18 08/11/18 Unknown History Labetalol [Normodyne TAB] 200 mg PO TID 08/11/18 08/11/18 Unknown History Losartan [Cozaar] 100 mg PO QDAY 08/11/18 08/11/18 Unknown History Sertraline [Zoloft] 25 mg PO QDAY 08/11/18 08/11/18 Unknown History hydrALAZINE [Apresoline TAB] 100 mg PO TID 08/11/18 08/11/18 Unknown History HYDROcodone/APAP 10-325 [[place] 1 each PO Q4HR PRN #7 tablet 08/14/18 Unknown Rx 10-325 mg TAB] Phenytoin [Dilantin] 100 mg PO TID #90 capsule.er 08/19/18 Unknown Rx levETIRAcetam [Keppra TAB] 1,000 mg PO BID #60 tablet 08/19/18 Unknown Rx Active Meds: Active Medications Ceftriaxone Sodium (Rocephin/Ns 1 Gm/50 Ml) 1 gm in 50 mls @ 100 mls/hr IV ONCE.ED ONE; Protocol Stop: 09/06/18 12:29 Sodium Chloride (Nacl 0.9%) 100 mls @ 999 mls/hr IV ALYSSA PRN PRN Reason: Hypotension Exam - Vital Signs Vital signs: Vital Signs Temp Pulse BP Pulse Ox 97.9 F 105 H 200/106 100 09/06/18 05:23 09/06/18 05:23 09/06/18 05:23 09/06/18 05:23 - Physical Exam Narrative exam: GENERAL: The patient is well-developed well-nourished female on a stretcher appearing to be in moderate discomfort. [] HEENT: Normocephalic. Atraumatic. Extraocular motions are intact. Patient has moist mucous membranes. NECK: Supple. Trachea midline CHEST/LUNGS: Clear to auscultation. There is no respiratory distress noted. HEART/CARDIOVASCULAR: Regular. There is no tachycardia. There is no gallop rub or murmur. ABDOMEN: Abdomen is soft, but diffusely tender to palpation. No rebound or guarding. Patient has normal bowel sounds. There is no abdominal distention. SKIN: There is no rash. There is no edema. There is no diaphoresis. NEURO: The patient is awake, alert, and oriented. The patient is cooperative. The patient has normal speech MUSCULOSKELETAL: There is no evidence of acute injury. Results - Lab Results 09/06/18 05:40 09/06/18 05:40 Most recent lab results Calcium 9.2 mg/dL (8.4-10.2) 09/06/18 05:40 Assessment and Plan Impression: * End stage renal disease * Seizure disorder * hyperkalemia * acute respiratory failure * Accelerated hypertension * SLE * Anemia secondary to ESRD * Secondary hyperparathryoidism Plan: * stat hd today and in am * cardene gtt for bp control * Continue TTS outpatient schedule * UF as tolerated * Continue antiHTN medications - BP control improved * Renal diet * Epogen TIW prn once BP controlled * Stable for d/c from a renal standpoint
[2018-09-06] MEDS ORDERED: ROCEPHIN/NS 1 GM/50 ML 1 GM/50 ML BAG IV ONE (12:00)
--- NOTE | 2018-09-06 12:09 | History and Physical Report ---
History of Present Illness Chief complaint: Im hurting History of present illness: 28 YO Female with HTN, Nicotine Dependence, Lupus, OA, Cocaine Dependence, Seizure Disorder, Asthma, Migraine Headache, ESRD on HD (T,R,Sa) presents to ED for evaluation. Pt states that she has experienced shortness of breath, generali zed body pain over the past 3 days with persistent symptoms over the same time frame. Pt seen and evaluated at 2 outside hospitals with no acute cardiac or respiratory findings. EMS notified, and patient transported to [facility] for further care and evaluation. Pt seen and evaluated in ED and found to have ESRD, SIRS, Respiratory Failure secondary to fluid overload, hypeerkalemia without EKG changes. Nephrology consulted in ED for urgent dialysis. Pt admitted to medical floor. Pt denies fever, chills, trauma, Palpitations, NVD, Productive cough or recent ill contacts. Past History Past Medical History: arthritis, ESRD, migraines, seizures, other (SLE, ASthma) Past Surgical History: Other (RUE AVF) Social history: single, smoking. denies: alcohol abuse, prescription drug abuse Family history: hypertension Medications and Allergies Allergies Allergy/AdvReac Type Severity Reaction Status Date / Time acetaminophen [From Percocet] Allergy Itching Verified 04/21/18 08:28 lisinopril Allergy Swelling Verified 04/21/18 08:28 metoprolol Allergy Unknown Verified 04/21/18 08:28 oxycodone [From Percocet] Allergy Itching Verified 04/21/18 08:28 oxycodone HCl [From Percocet] AdvReac Unknown Verified 04/21/18 08:28 Home Medications Medication Instructions Recorded Confirmed Last Taken Type Furosemide [Lasix] 80 mg PO QDAY #30 tablet 04/23/18 08/11/18 Unknown Rx Albuterol Sulfate [Proair 2 puff IH Q4H PRN #1 pump 07/15/18 08/11/18 Unknown Rx Respiclick] Hydroxychloroquine [Plaquenil] 200 mg PO QDAY #30 tablet 07/24/18 08/11/18 Unknown Rx Clonidine HCl [Catapres] 0.3 mg PO TID 08/11/18 08/11/18 Unknown History Labetalol [Normodyne TAB] 200 mg PO TID 08/11/18 08/11/18 Unknown History Losartan [Cozaar] 100 mg PO QDAY 08/11/18 08/11/18 Unknown History Sertraline [Zoloft] 25 mg PO QDAY 08/11/18 08/11/18 Unknown History hydrALAZINE [Apresoline TAB] 100 mg PO TID 08/11/18 08/11/18 Unknown History HYDROcodone/APAP 10-325 [[place] 1 each PO Q4HR PRN #7 tablet 08/14/18 Unknown Rx 10-325 mg TAB] Phenytoin [Dilantin] 100 mg PO TID #90 capsule.er 08/19/18 Unknown Rx levETIRAcetam [Keppra TAB] 1,000 mg PO BID #60 tablet 08/19/18 Unknown Rx Active Meds: Active Medications Ceftriaxone Sodium (Rocephin/Ns 1 Gm/50 Ml) 1 gm in 50 mls @ 100 mls/hr IV ONCE.ED ONE; Protocol Stop: 09/06/18 12:29 Sodium Chloride (Nacl 0.9%) 100 mls @ 999 mls/hr IV ALYSSA PRN PRN Reason: Hypotension Review of Systems Constitutional: chronic pain, no weight loss, no weight gain, no fever, no chills Ears, nose, mouth and throat: no ear pain, no ear discharge, no tinnitis, no decreased hearing, no nose pain, no nasal congestion Cardiovascular: no orthopnea, no palpitations, no rapid/irregular heart beat, no edema Respiratory: no cough, no cough with sputum, no excessive sputum, no hemoptysis Gastrointestinal: no nausea, no vomiting, no diarrhea, no constipation Genitourinary Female: no pelvic pain, no flank pain, no menorrhagia, no dysuria, no urinary frequency, no urgency Rectal: no pain, no incontinence, no bleeding Musculoskeletal: no neck stiffness, no neck pain, no shooting arm pain, no arm numbness/tingling, no low back pain Integumentary: no rash, no pruritis, no redness, no sores, no wounds, no jaundice Neurological: no transient paralysis, no paralysis, no weakness, no parathesias, no numbness, no tingling, no seizures Psychiatric: no memory loss, no change in sleep habits, no sleep disturbances, no insomnia, no hypersomnia, no change in appetite, no change in libido Endocrine: no cold intolerance, no heat intolerance, no polyphagia, no excessive thirst, no polydipsia, no polyuria Hematologic/Lymphatic: no easy bruising, no easy bleeding, no lymphadenopathy, no lymphedema Allergic/Immunologic: no urticaria, no allergic rhinitis, no wheezing Exam - Constitutional Vitals: Temp Pulse Resp BP Pulse Ox 97.9 F 105 H 200/106 100 09/06/18 05:23 09/06/18 05:23 09/06/18 05:23 09/06/18 05:23 General appearance: Present: mild distress - EENT Eyes: Present: PERRL ENT: hearing intact, clear oral mucosa - Neck Neck: Present: supple, normal ROM - Respiratory Respiratory effort: normal Respiratory: bilateral: diminished, rhonchi - Cardiovascular Rhythm: other (tachycardia) Heart Sounds: Present: S1 & S2. Absent: rub, click - Extremities Extremities: pulses symmetrical, No edema Peripheral Pulses: within normal limits - Abdominal General gastrointestinal: Present: soft, non-tender, non-distended, normal bowel sounds Female genitourinary: Present: normal - Integumentary Integumentary: Present: clear, warm, dry - Musculoskeletal Musculoskeletal: gait normal, strength equal bilaterally - Psychiatric Psychiatric: appropriate mood/affect, intact judgment & insight - Neurologic Neurologic: CNII-XII intact, moves all extremities Results - Labs CBC & Chem 7: 09/06/18 05:40 09/06/18 05:40 Labs: Abnormal lab results 09/06/18 09/06/18 Range/Units 05:40 05:40 WBC 16.2 H (4.5-11.0) K/mm3 RDW 20.2 H (13.2-15.2) % Lymph % (Auto) 4.3 L (13.4-35.0) % [place] % (Auto) 10.8 H (0.0-7.3) % Lymph # 0.7 L (1.2-5.4) K/mm3 [place] # 1.8 H (0.0-0.8) K/mm3 Seg Neutrophils % 84.5 H (40.0-70.0) % Seg Neutrophils # 13.7 H (1.8-7.7) K/mm3 Sodium 134 L (137-145) mmol/L Potassium 6.2 H* (3.6-5.0) mmol/L Chloride 92.7 L (98-107) mmol/L Carbon Dioxide 12 L (22-30) mmol/L BUN 59 H (7-17) mg/dL Creatinine 10.9 H (0.7-1.2) mg/dL ALT < 5 L (7-56) units/L Albumin 3.4 L (3.9-5) g/dL Assessment and Plan - Patient Problems (1) ESRD (end stage renal disease) Current Visit: No Status: Chronic Plan to address problem: Nephrology consulted in ED, Urgent dialysis as per renal team, monitor uop q dario ft, avoid nephrotoxic agents, (2) Accelerated hypertension Current Visit: No Status: Acute Plan to address problem: monitor bp q shift, UDS, resume prehospital antihypertensive therpay, IV hydralazine prn (3) Respiratory failure Current Visit: No Status: Acute Qualifiers: Chronicity: acute Respiratory failure complication: hypoxia Qualified Code(s): J96.01 - Acute respiratory failure with hypoxia Plan to address problem: Supplemental oxygen, nebulizer therapy, chest x ray, NIPPV as clinically indicated, pulse oximetry, pain control (4) SIRS (systemic inflammatory response syndrome) Current Visit: Yes Status: Acute Plan to address problem: IV antibiotic therapy, chest x ray, urinalysis, cbc, cmp, supportive care, (5) Seizure disorder Current Visit: No Status: Acute Plan to address problem: resume AED, seizure precautions, neuro checks (6) DVT prophylaxis Current Visit: No Status: Acute Plan to address problem: SCD to BLE while in bed.
[2018-09-06] MEDS ORDERED: BENADRYL ONE (12:26)
[2018-09-06] MEDS ORDERED: ZOFRAN IV PRN (12:30)
[2018-09-06] MEDS ORDERED: SODIUM CHLORIDE FLUSH SYRINGE 10 ML IV PRN (12:30)
[2018-09-06] MEDS ORDERED: APRESOLINE IV PRN (12:30)
[2018-09-06] MEDS ORDERED: TYLENOL PO PRN (12:30)
[2018-09-06] MEDS ORDERED: BENADRYL IV ONE (12:36)
[2018-09-06] MEDS: CATAPRES PO SCH ×2 (14:00→21:59)
[2018-09-06] MEDS: NORMODYNE PO SCH ×2 (14:00→21:09)
[2018-09-06] MEDS: APRESOLINE PO SCH ×2 (14:00→21:09)
[2018-09-06] MEDS: DILANTIN PO SCH ×2 (14:00→21:09)
[2018-09-06] MEDS ORDERED: NON-FORMULARY (Clonidine Hcl [Catapres] 0.3 MG) PO SCH (14:00)
[2018-09-06] MEDS ORDERED: NACL 0.9 (PRIMING MACHINE ONLY DIALYSIS) MC ONE (15:07)
[2018-09-06] MEDS ORDERED: NORCO 5/325 ONE (15:41)
[2018-09-06] MEDS ORDERED: NORCO 5/325 PO ONE (15:45)
[2018-09-06] MEDS ORDERED: NORMODYNE ONE (21:05)
[2018-09-06] MEDS ORDERED: DILANTIN ONE (21:05)
[2018-09-06] MEDS ORDERED: APRESOLINE ONE (21:06)
[2018-09-06] MEDS: NORCO 10/325 PO PRN (21:16)
[2018-09-06] MEDS ORDERED: NORCO 10/325 ONE (21:16)
[2018-09-06] MEDS ORDERED: CATAPRES ONE ×2 (21:57)
[2018-09-06] MEDS ORDERED: KEPPRA PO ONE (21:57)
[2018-09-06] MEDS: SODIUM CHLORIDE FLUSH SYRINGE 10 ML IV SCH (21:59)
[2018-09-06] MEDS: KEPPRA PO SCH (21:59)
[2018-09-07 04:50] LABS: Calcium 8.4 mg/dL (8.4-10.2)
[2018-09-07] MEDS: CATAPRES PO SCH ×2 (06:33→13:23)
[2018-09-07] MEDS: NORCO 10/325 PO PRN ×2 (06:34→12:05)
[2018-09-07] MEDS: DILANTIN PO SCH ×3 (08:00→22:10)
[2018-09-07] MEDS: NORMODYNE PO SCH ×3 (08:00→22:10)
[2018-09-07] MEDS: APRESOLINE PO SCH ×3 (08:00→22:10)
[2018-09-07] MEDS ORDERED: NON-FORMULARY (Losartan [Cozaar] 100 MG) PO SCH (10:00)
[2018-09-07] MEDS: COZAAR PO SCH (10:31)
[2018-09-07] MEDS: PLAQUENIL PO SCH (10:33)
[2018-09-07] MEDS: ZOLOFT PO SCH (10:33)
[2018-09-07] MEDS: KEPPRA PO SCH ×2 (10:33→22:10)
[2018-09-07] MEDS: SODIUM CHLORIDE FLUSH SYRINGE 10 ML IV SCH ×2 (10:34→22:11)
[2018-09-07] MEDS ORDERED: NACL 0.9% 100 ML IV PRN (10:43)
--- NOTE | 2018-09-07 10:43 | Progress Note ---
Assessment and Plan Impression: * End stage renal disease * Low grade fever * ?LLL PNA * Hyperkalemia - resolved s/p HD * Acute respiratory failure * Accelerated hypertension * SLE * Seizure disorder * Anemia secondary to ESRD * Secondary hyperparathryoidism Plan: * Patient is s/p stat HD yesterday * HD today - continue MWF schedule * UF as tolerated * Await blood cx * Abx per primary team * Pain management per primary team * Continue antiHTN medications * Renal diet * Epogen TIW prn once BP controlled Subjective Date of service: 09/07/18 Interval history: Patient c/o generalized pain Objective - Vital Signs Vital signs: Vital Signs - 12hr 09/06/18 09/06/18 09/06/18 22:46 22:48 23:00 Temperature Pulse Rate 113 H 110 H 106 H Respiratory 11 L 15 17 Rate Blood Pressure 133/81 133/81 127/70 Blood Pressure [Left] O2 Sat by Pulse Oximetry 09/06/18 09/06/18 09/06/18 23:15 23:16 23:30 Temperature Pulse Rate 105 H 104 H 106 H Respiratory 16 16 20 Rate Blood Pressure 127/70 142/81 Blood Pressure 127/70 [Left] O2 Sat by Pulse 98 Oximetry 09/06/18 09/07/18 09/07/18 23:46 00:00 00:45 Temperature 98.8 F Pulse Rate 102 H 106 H 113 H Respiratory 16 19 20 Rate Blood Pressure 124/72 141/83 132/76 Blood Pressure [Left] O2 Sat by Pulse 95 Oximetry 09/07/18 09/07/18 06:25 06:33 Temperature 100.8 F H Pulse Rate 121 H 121 H Respiratory 20 Rate Blood Pressure 149/100 149/100 Blood Pressure [Left] O2 Sat by Pulse 90 Oximetry - General Appearance General appearance: well-developed, well-nourished EENT: ATNC Respiratory: Present: Other (faint inspiratory crackles) Cardiology: regular, S1S2 Gastrointestinal: normal Integumentary: no rash, warm and dry Neurologic: no focal deficit Musculoskeletal: other (no edema) Psychiatric: cooperative - Lab 09/06/18 05:40 09/07/18 04:09 Most recent lab results Calcium 8.4 mg/dL (8.4-10.2) 09/07/18 04:09 Medications & Allergies - Medications Allergies/Adverse Reactions: Allergies acetaminophen [From Percocet] Allergy (Verified 04/21/18 08:28) Itching lisinopril Allergy (Verified 04/21/18 08:28) Swelling metoprolol Allergy (Verified 04/21/18 08:28) Unknown oxycodone [From Percocet] Allergy (Verified 04/21/18 08:28) Itching oxycodone HCl [From Percocet] Adverse Reaction (Verified 04/21/18 08:28) Unknown Home Medications: Home Medications Medication Instructions Recorded Confirmed Last Taken Type Furosemide [Lasix] 80 mg PO QDAY #30 tablet 04/23/18 08/11/18 Unknown Rx Albuterol Sulfate [Proair 2 puff IH Q4H PRN #1 pump 07/15/18 08/11/18 Unknown Rx Respiclick] Hydroxychloroquine [Plaquenil] 200 mg PO QDAY #30 tablet 07/24/18 08/11/18 Unknown Rx Clonidine HCl [Catapres] 0.3 mg PO TID 08/11/18 08/11/18 Unknown History Labetalol [Normodyne TAB] 200 mg PO TID 08/11/18 08/11/18 Unknown History Losartan [Cozaar] 100 mg PO QDAY 08/11/18 08/11/18 Unknown History Sertraline [Zoloft] 25 mg PO QDAY 08/11/18 08/11/18 Unknown History hydrALAZINE [Apresoline TAB] 100 mg PO TID 08/11/18 08/11/18 Unknown History HYDROcodone/APAP 10-325 [[place] 1 each PO Q4HR PRN #7 tablet 08/14/18 Unknown Rx 10-325 mg TAB] Phenytoin [Dilantin] 100 mg PO TID #90 capsule.er 08/19/18 Unknown Rx levETIRAcetam [Keppra TAB] 1,000 mg PO BID #60 tablet 08/19/18 Unknown Rx Active Medications: Generic Name Dose Route Start Last Admin Trade Name Freq PRN Reason Stop Dose Admin Acetaminophen 650 mg 09/06/18 12:30 Tylenol PO Q4H PRN Pain MILD(1-3)/Fever >100.5/WOLFF Acetaminophen/Hydrocodone [place] 1 each 09/06/18 12:32 09/07/18 06:34 [place] 10/325 PO 1 each Q4HR PRN Administration Pain Clonidine HCl 0.3 mg 09/06/18 14:00 09/07/18 06:33 Catapres PO 0.3 mg Q8HR FERNANDO Administration Hydralazine HCl 10 mg 09/06/18 12:30 09/06/18 16:12 Apresoline IV 10 mg Q4HR PRN Administration Hypertension Hydralazine HCl 100 mg 09/06/18 14:00 09/07/18 08:00 Apresoline PO 100 mg TID FERNANDO Administration Hydroxychloroquine Sulfate 200 mg 09/07/18 10:00 09/07/18 10:33 Plaquenil PO 200 mg QDAY FERNANDO Administration Sodium Chloride 100 mls @ 999 mls/hr 09/06/18 11:44 Nacl 0.9% IV ALYSSA PRN Hypotension Labetalol HCl 200 mg 09/06/18 14:00 09/07/18 08:00 Normodyne PO 200 mg TID FERNANDO Administration Levetiracetam 1,000 mg 09/06/18 22:00 09/07/18 10:33 Keppra PO 1,000 mg BID FERNANDO Administration Losartan Potassium 100 mg 09/07/18 10:00 09/07/18 10:31 Cozaar PO 100 mg QDAY FERNANDO Administration Ondansetron HCl 4 mg 09/06/18 12:30 Zofran IV Q8H PRN Nausea And Vomiting Phenytoin 100 mg 09/06/18 14:00 09/07/18 08:00 Dilantin PO 100 mg TID FERNANDO Administration Sertraline HCl 25 mg 09/07/18 10:00 09/07/18 10:33 Zoloft PO 25 mg QDAY FERNANDO Administration Sodium Chloride 10 ml 09/06/18 22:00 09/07/18 10:34 Sodium Chloride Flush Syringe 10 Ml IV 10 ml BID FERNANDO Administration Sodium Chloride 10 ml 09/06/18 12:30 Sodium Chloride Flush Syringe 10 Ml IV PRN PRN LINE FLUSH
--- NOTE | 2018-09-07 14:42 | Progress Note ---
Assessment and Plan Assessment and plan: 28 year old woman with past medical history of seizure disorder, end-stage renal disease, history of polysubstance abuse, drug of choice is cocaine. Pain medication seeking behavior, nonadherence to medications and dialysis, SLE and hypertension She presents with shortness of breath and generalized body pains. The patient admitted that she had not perform dialysis per her schedule.. Fluid overload, hyperkalemia, end-stage renal disease Due to missed dialysis, status post emergent dialysis, now improved Continue hemodialysis per schedule Low-grade fever Blood cultures in progress no growth after 24 hours, awaiting final results Chest x-ray shows possible infiltrate, not well visualized on one view, will get 2 view x-ray, will also obtain UA -Monitor off antibiotics for now SLE cont plaquenil, fever and generalized body pains may be due to an SLE flare, we'll start her on IV hx of substance abuse UDS positive for cocaine ARIELA profile shows that she only gets norco from ER and hospital when dc, she is not getting from a PCP or outpatient MD Pain medication seeking Behavior she's intent on obtaining IV narcotics, she was counseled that they are not a good choice for her. She's already in the process of establishing at a Pain management Clinic non-adherence to medications Has been counseled about improved adherence Seizure disorder Continue AED HTN Urgency optimize BP meds DVT prophylaxis with heparin History Interval history: She is complaining of generalized body pains Review of systems Constitutional: She had a fever of 100.8, complaining of malaise CVS: No chest pain, no orthopnea, no dyspnea on exertion, no pedal edema GI: No abdominal pain, no diarrhea, no vomiting, no constipation Respiratory: No shortness of breath, no wheezing, no coughing Hospitalist Physical - Physical exam Narrative exam: General.: Moderate distress, nontoxic appearance HEENT: Moist mucous membranes, extraocular muscles intact, no lymphadenopathy Neck: supple Cardiac: S1-S2 heard Lungs: clear to auscultation bilaterally Abdomen: soft , nontender, nondistended, bowel sounds positive Extremities: no edema clubbing or cyanosis Skin: no rash or lesions Neurologic: no gross focal deficits Psych: appropriate behavior, appropriate mood, corporative, judgment intact - Constitutional Vitals: Temp Pulse Resp BP Pulse Ox 98.0 F 90 16 111/69 100 09/07/18 12:03 09/07/18 12:03 09/07/18 12:03 09/07/18 12:03 09/07/18 12:03 General appearance: Present: mild distress Results - Labs CBC & Chem 7: 09/06/18 05:40 09/07/18 04:09 Labs: Laboratory Last Values WBC 16.2 K/mm3 (4.5-11.0) H 09/06/18 05:40 RBC 3.96 M/mm3 (3.65-5.03) 09/06/18 05:40 Hgb 11.1 gm/dl (10.1-14.3) 09/06/18 05:40 Hct 36.0 % (30.3-42.9) 09/06/18 05:40 MCV 91 fl (79-97) 09/06/18 05:40 MCH 28 pg (28-32) 09/06/18 05:40 MCHC 31 % (30-34) 09/06/18 05:40 RDW 20.2 % (13.2-15.2) H 09/06/18 05:40 Plt Count 196 K/mm3 (140-440) 09/06/18 05:40 Lymph % (Auto) 4.3 % (13.4-35.0) L 09/06/18 05:40 [place] % (Auto) 10.8 % (0.0-7.3) H 09/06/18 05:40 Eos % (Auto) 0.0 % (0.0-4.3) 09/06/18 05:40 Baso % (Auto) 0.4 % (0.0-1.8) 09/06/18 05:40 Lymph # 0.7 K/mm3 (1.2-5.4) L 09/06/18 05:40 [place] # 1.8 K/mm3 (0.0-0.8) H 09/06/18 05:40 Eos # 0.0 K/mm3 (0.0-0.4) 09/06/18 05:40 Baso # 0.1 K/mm3 (0.0-0.1) 09/06/18 05:40 Seg Neutrophils % 84.5 % (40.0-70.0) H 09/06/18 05:40 Seg Neutrophils # 13.7 K/mm3 (1.8-7.7) H 09/06/18 05:40 Sodium 135 mmol/L (137-145) L 09/07/18 04:09 Potassium 4.2 mmol/L (3.6-5.0) D 09/07/18 04:09 Chloride 94.8 mmol/L (98-107) L 09/07/18 04:09 Carbon Dioxide 25 mmol/L (22-30) D 09/07/18 04:09 Anion Gap 19 mmol/L 09/07/18 04:09 BUN 32 mg/dL (7-17) H 09/07/18 04:09 Creatinine 7.2 mg/dL (0.7-1.2) H 09/07/18 04:09 Estimated GFR 8 ml/min 09/07/18 04:09 BUN/Creatinine Ratio 4 % 09/07/18 04:09 Glucose 108 mg/dL (65-100) H 09/07/18 04:09 Calcium 8.4 mg/dL (8.4-10.2) 09/07/18 04:09 Total Bilirubin 0.60 mg/dL (0.1-1.2) 09/06/18 05:40 AST 14 units/L (5-40) 09/06/18 05:40 ALT < 5 units/L (7-56) L 09/06/18 05:40 Alkaline Phosphatase 122 units/L (35-129) 09/06/18 05:40 Total Protein 8.1 g/dL (6.3-8.2) 09/06/18 05:40 Albumin 3.4 g/dL (3.9-5) L 09/06/18 05:40 Albumin/Globulin Ratio 0.7 % 09/06/18 05:40 HCG, Qual Negative (Negative) 09/06/18 05:40
[2018-09-07] MEDS ORDERED: PERCOCET 5/325 PO PRN (16:29)
[2018-09-07] MEDS ORDERED: BENADRYL PO PRN (16:29)
--- NOTE | 2018-09-07 16:48 | XRay Report ---
FINAL REPORT EXAM: XR CHEST ROUTINE 2V HISTORY: fever TECHNIQUE: Frontal and lateral views of the chest. PRIORS: Chest x-ray September 06, 2018. FINDINGS: Stable moderate to marked cardiomegaly. Aortic calcifications. Prominent bilateral pulmonary markings with airspace opacities. Small bilateral pleural effusions. Il l-defined opacity in the left mid lower lung may represent atelectasis or infiltrate. There are no suspicious osseous lesions. IMPRESSION: Stable cardiomegaly. Prominent pulmonary markings with airspace opacities may represent pulmonary vascular congestion with edema. Slightly worse compared to prior. Small bilateral pleural effusions suspected. Focal infiltrate or subsegmental atelectasis in the left mid and lower lung. Similar to prior.
[2018-09-07] MEDS ORDERED: NACL 0.9% 1000 ML 1,000 ML ONE (17:18)
[2018-09-07] MEDS ORDERED: SOLU-Medrol 500 MG in NACL 0.9% 100 ML IV SCH (18:00)
[2018-09-07] MEDS: DILAUDID IV PRN ×2 (18:34→22:25)
[2018-09-08 07:07] VITALS: BP 138/88
[2018-09-08] MEDS: DILAUDID IV PRN ×2 (07:08→13:40)
[2018-09-08] MEDS: CATAPRES PO SCH ×2 (07:08)
[2018-09-08] MEDS: NORMODYNE PO SCH (09:31)
[2018-09-08] MEDS: APRESOLINE PO SCH (09:31)
[2018-09-08] MEDS: DILANTIN PO SCH (09:31)
[2018-09-08] MEDS: ZOLOFT PO SCH (13:44)
[2018-09-08] MEDS: COZAAR PO SCH (13:44)
[2018-09-08] MEDS: PLAQUENIL PO SCH (13:44)
[2018-09-08] MEDS: KEPPRA PO SCH (13:45)
--- NOTE | 2018-09-08 14:46 | Discharge Summary ---
Providers - Providers Date of Admission: 09/06/18 12:30 Attending physician: ANTWON WEIR MD 09/06/18 11:33 Consult to Physician [CONS] Urgent Comment: Consulting Provider: ROSEANNA HUFF Physician Instructions: Reason For Exam: hyperkalemia Primary care physician: [employer] Hospitalization Reason for admission: shortness of breath Condition: Fair Hospital course: 28 year old woman with past medical history of seizure disorder, end-stage renal disease, history of polysubstance abuse, drug of choice is cocaine. Pain medication seeking behavior, nonadherence to medications and dialysis, SLE and hypertension She presents with shortness of breath and generalized body pains. The patient admitted that she had not perform dialysis per her schedule.. Today the patient is very abrasive about being discharged. Denies missing any dialysis in the past. Discussed all her finding and the need to treat for pneumonia inlight of findings from Chest xray, although this could be fluids. Blood cultures remain negative. Patient with no new fever. Fluid overload, hyperkalemia, end-stage renal disease Due to missed dialysis, status post emergent dialysis, now improved Continue hemodialysis per schedule Low-grade fever with presumed lobar pneumonia Blood cultures in progress no growth after 24 hours, awaiting final results Chest x-ray shows possible infiltrate, not well visualized on one view, no new fever off abx. uunable to get urine for sampling. home o2 evaluated prior to discharge SLE cont plaquenil, fever and generalized body pains may be due to an SLE flare, we'll start her on IV hx of substance abuse UDS positive for cocaine ARIELA profile shows that she only gets norco from ER and hospital when dc, she is not getting from a PCP or outpatient MD Pain medication seeking Behavior she's intent on obtaining IV narcotics, she was counseled that they are not a good choice for her. She's already in the process of establishing at a Pain management Clinic non-adherence to medications Has been counseled about improved adherence Seizure disorder Continue AED HTN Urgency optimized BP meds Disposition: DC/TX-06 HOME UNDER [facility] Time spent for discharge: 35 mins Core Measure Documentation - Palliative Care Palliative Care/ Comfort Measures: Not Applicable - Core Measures Any of the following diagnoses?: none Exam - Physical Exam Narrative exam: General.: no distress, nontoxic appearance HEENT: Moist mucous membranes, extraocular muscles intact, no lymphadenopathy Neck: supple Cardiac: S1-S2 heard Lungs: clear to auscultation bilaterally Abdomen: soft , nontender, nondistended, bowel sounds positive Extremities: no edema clubbing or cyanosis Skin: no rash or lesions Neurologic: no gross focal deficits Psych: appropriate behavior, appropriate mood, corporative, judgment intact - Constitutional Vitals: Temp Pulse Resp BP Pulse Ox 97.5 F L 76 18 138/88 100 09/08/18 06:55 09/08/18 07:08 09/08/18 06:55 09/08/18 07:08 09/08/18 07:12 Plan Activity: advance as tolerated, fall precautions Diet: renal Special Instructions: record daily weights, record daily BP diary Durable Medical Equipment Needed Upon Discharge: other (must avoid drug abuse and must be compliant with dialysis) Follow up with: PRIMARY CARE, [Primary Care Provider] - 3-5 Days PADMINI NELSON MD [Staff Physician] - 7 Days Prescriptions: Amoxicillin/Potassium Clav [Augmentin 500-125 Tablet] 1 each PO BID #10 tablet Prednisone [predniSONE 10 mg (6-Day Pack, 21 Tabs)] 10 mg PO .TAPER #1 tab.ds.pk
--- NOTE | 2018-09-11 10:58 | Query-Infection ---
"Laura Olivarez____Prakash Date:____09/11/18 Medical Transport Specialist/CDS:__vicki/irina Phone#:__[phone] Exercise your independent professional judgment when responding to this query. Questions asked do not imply a particular answer is desired or expected. We greatly appreciate your clarification on this issue. Clinical Documentation States: 28 year old woman with past medical history of seizure disorder, end-stage renal disease, history of polysubstance abuse, drug of choice is cocaine. Pain medication seeking behavior, nonadherence to medications and dialysis, SLE and hypertension Assessment and plan: Fluid overload, hyperkalemia, end-stage renal disease Low-grade fever with presumed lobar pneumonia Clinical findings show: (please check applicable parameters) Infection, known /suspected, with some of the following indicators; Specify the infection: presumed lobar pneumonia 09/06/18 WBC 16.2 [place] 158 RR 31 General parameters [ X] Fever (core temp >38.30C or 100.40F) [ ] Hypothermia (core temp <36C) [X ] Heart rate >90 bpm [X ] Tachypnea: >20 bpm or pCO2 < 32 mmHg [ ] Altered mental status [ ] Significant edema / +ve fluid balance (>20 ml/kg 24 h) [ ] Hyperglycemia (Bl. glucose >110 mg/dl) w/o diabetes Inflammatory parameters [X ] Leukocytosis (white blood cell count >12,000/l) [ ] Leukopenia (white blood cell count <4,000/l) [ ] Bandemia (immature WBC > 10%) [ ] Leucocyte Left Shift [ ] Plasma procalcitonin>2 SD above the normal value Hemodynamic and tissue perfusion parameters [ ] Arterial hypotension(SBP <90 mmHg, MAP <70 mmHg,or a SBP drop >40 mmHg in adults) [ ] Hyperlactatemia (>3 mmol/l) [ ] Anion Gap (> 11mEG/l) [ ] Decreased capillary refill or mottling Organ dysfunction parameters [ ] Arterial hypoxemia (PaO2/FIO2 <300) [ ] Creatinine increase =0.5 mg/dl [ ] Acute oliguria (urine output <0.5 ml | kg |h or 45 mM/l for at least 2 hrs) [ ] Coagulation abnormalities (INR >1.5 or activated partial thromboplastin time >60 s) [ ] Ileus (absent butch wel sounds) [ ] Thrombocytopenia (platelet count <100,000/l) [ ] Hyperbilirubinemia (plasma total bilirubin >4 mg/dl) According to the clinical indications above, can Bacteremia be further specified? If so, please indicate below and in your Progress Notes and/ or Discharge Summary. Indicate if the condition was present on admission. PHYSICIAN RESPONSE: [ ] Sepsis [ ] Severe Sepsis [ ] Septic Shock [ ] Septicemia [ ] Sepsis now resolved [ ] SIRS due to non-infectious cause with organ dysfunction [ x] SIRS due to non-infectious cause without organ dysfunction [ ] Other: [ ] Comment/Explanation: Present on Admission: [ x] Yes (Y) [ ] Clinically undeterminable (W) [ ] No (N) [ ] Ruled Out Please also document response in your Progress Notes and/or Discharge Summary and indicate if the condition was present on admission Notes: SIRS/ SIRS WITH ORGAN DYSFUNCTION Systemic inflammatory response syndrome (SIRS) generally refers to the systemic response to trauma/rosado or other insult such as Acute Myocardial Infarction, Acute Pancreatitis, and Major Surgery with symptoms including fever, tachycardia, tachypnea, and leukocytosis (1). BACTEREMIA Presence of viable bacteria in the circulating blood (2). This term is reserved for patients that do not manifest above SIRS response. SEPTICEMIA Generally refers to a systemic disease associated with the presence of pathological microorganisms or toxins in the blood, which can include bacteria, viruses, fungi or other organisms (1). SEPSIS Generally refers to SIRS due infection (1). SEVERE SEPSIS Generally refers to sepsis associated with acute organ dysfunction (1). SEPTIC SHOCK Generally refers to circulatory failure associated with severe sepsis (2), and defined as hypotension or hypoperfusion despite adequate fluid resuscitation (1 hour) (3). REFERENCES: 1. [place] [employer]icians/Society of Critical Care Medicine Consensus Conference. Definitions for sepsis and organ failure and guidelines for the use of innovative therapies in sepsis. Critical Care Med 1992;20:864 - 74. 2. Colby hui MM, Piper MP, Pramod CANNON, Uriah E, Robb D, Ramez D, Cody J, Sharon SM, Juventino JL, Raheel G; International Sepsis Definitions Conference. 2001 SCCM/ESICM/ACCP/ATS/SIS International Sepsis Definitions Conference. Intensive Care Med. 2002;29(4):530-8. Epub 2002Dec 03. Review. PubMed PMID:[id number] 3. ICD-9-CM Official Guidelines for Coding and Reporting 4. Medscape Drugs, Diseases and Procedures references 5. [employer] Textbook of Internal Medicine. 18th Edition MTDD"
== END 2018-09-08 15:33 | disposition home health service (06) | DRG 193 ==
LOC: ED 05:17 → 3A 12:30
PROVIDERS: ADMIT Internal Medicine; ATTEND Internal Medicine
PROC: 5A1D70Z Performance of Urinary Filtration, Intermittent, Less than 6 Hours Per Day (ICD-10-PCS; principal; 2018-09-06)
PROC: 5A1D70Z Performance of Urinary Filtration, Intermittent, Less than 6 Hours Per Day (ICD-10-PCS; 2018-09-07)
DX: J18.1 Lobar pneumonia, unspecified organism (principal); J96.01 Acute respiratory failure with hypoxia; N18.6 End stage renal disease; I13.2 Hypertensive heart and chronic kidney disease with heart failure and with stage 5 chronic kidney disease, or end stage renal disease; R65.10 Systemic inflammatory response syndrome (SIRS) of non-infectious origin without acute organ dysfunction; N25.81 Secondary hyperparathyroidism of renal origin; E87.70 Fluid overload, unspecified; G40.909 Epilepsy, unspecified, not intractable, without status epilepticus; E87.5 Hyperkalemia; I16.0 Hypertensive urgency; I50.9 Heart failure, unspecified; M19.90 Unspecified osteoarthritis, unspecified site; G43.909 Migraine, unspecified, not intractable, without status migrainosus; J45.909 Unspecified asthma, uncomplicated; M32.9 Systemic lupus erythematosus, unspecified; D63.1 Anemia in chronic kidney disease; F14.10 Cocaine abuse, uncomplicated; Z91.14 Patient's other noncompliance with medication regimen; Z99.2 Dependence on renal dialysis; Z82.49 Family history of ischemic heart disease and other diseases of the circulatory system; Z88.8 Allergy status to other drugs, medicaments and biological substances
CPT/HCPCS: 36415; 71045; 71046; 80048; 80053; 84703; 85025; 87040; 93005; 93010; 94640; 94760; 96365; 96366; 96368; 96375; 99406; G0378; J0360; J0610; J0696; J1170; J1200; J1815; J2405; J2930; J3010; J7030

== ENCOUNTER 2018-09-10 05:45 | Inpatient (IN) | payer MEDICARE ==
[2018-09-10] MEDS ORDERED: DILAUDID IV ONE ×2 (06:43→07:50)
[2018-09-10] MEDS ORDERED: KETAMINE HCL IV ONE (06:44)
[2018-09-10 07:03] LABS: Basophils % (Auto) 0.2 % (0.0-1.8); Eosinophils # (Auto) 0.1 K/mm3 (0.0-0.4); Eosinophils % (Auto) 1.5 % (0.0-4.3); Hematocrit 37.6 % (30.3-42.9); Hemoglobin 12.1 gm/dl (10.1-14.3); Lymphocytes # (Auto) 0.8 K/mm3 (1.2-5.4); Lymphocytes % (Auto) 16.4 % (13.4-35.0); Mean Corpuscular HGB Conc 32 % (30-34); Mean Corpuscular Volume 87 fl (79-97); Monocytes # (Auto) 0.6 K/mm3 (0.0-0.8); Monocytes % (Auto) 12.6 % (0.0-7.3); Platelet Count 190 K/mm3 (140-440); Red Cell Distribution Width 19.5 % (13.2-15.2)
[2018-09-10 07:19] LABS: Albumin 3.4 g/dL (3.9-5); Calcium 8.3 mg/dL (8.4-10.2)
--- NOTE | 2018-09-10 07:30 | Emergency Department Report ---
ED General Adult HPI - General Chief complaint: Pain General Stated complaint: BODY PAIN Time Seen by Provider: 09/10/18 06:10 Source: patient, EMS (ems notes not available at time of chart dictation), RN notes reviewed, old records reviewed Mode of arrival: Stretcher Limitations: Physical Limitation - History of Present Illness Initial comments: This is a 28-year-old female. I have evaluated her multiple times in the past. Past history includes cocaine abuse, medication noncompliance, end-stage renal disease on dialysis, hypertension, lupus, drug-seeking behavior, breakthrough seizure Nephrology: Dr. Hardin This patient was recently admitted to the medical service for generalized body pains, and hyperkalemia. The patient was discharged within the past 2 days. Apparently, she was abrasive about being discharged, and was again found to have narcotic seeking behavior, and was documented to be in the process of establishing a pain management clinic. Her drug enforcement agency profile indicated that she gets narcotics from emergency rooms and hospitals when discharged, it is not getting from a PCP or an outpatient primary care doctor. She was also discharged with Augmentin antibiotics. Today, the patient complains of chronic body pain, chronic abdominal pain, malaise and fatigue. She reports having this pain for weeks. She reports having evaluations for this pain at other hospitals. She denies irritative, obstructive urinary symptoms. -: Gradual Location: abdomen Severity scale (0 -10): 10 Improves with: medication Worsens with: movement Associated Symptoms: loss of appetite, malaise, weakness. denies: confusion, chest pain, cough, diaphoresis, fever/chills - Related Data Home Medications Medication Instructions Recorded Confirmed Last Taken Clonidine HCl [Catapres] 0.3 mg PO TID 08/11/18 08/11/18 Unknown Labetalol [Normodyne TAB] 200 mg PO TID 08/11/18 08/11/18 Unknown Losartan [Cozaar] 100 mg PO QDAY 08/11/18 08/11/18 Unknown Sertraline [Zoloft] 25 mg PO QDAY 08/11/18 08/11/18 Unknown hydrALAZINE [Apresoline TAB] 100 mg PO TID 08/11/18 08/11/18 Unknown Previous Rx's Medication Instructions Recorded Last Taken Type Furosemide [Lasix] 80 mg PO QDAY #30 tablet 04/23/18 Unknown Rx Albuterol Sulfate [Proair 2 puff IH Q4H PRN #1 pump 07/15/18 Unknown Rx Respiclick] Hydroxychloroquine [Plaquenil] 200 mg PO QDAY #30 tablet 07/24/18 Unknown Rx HYDROcodone/APAP 10-325 [[place] 1 each PO Q4HR PRN #7 tablet 08/14/18 Unknown Rx 10-325 mg TAB] Phenytoin [Dilantin] 100 mg PO TID #90 capsule.er 08/19/18 Unknown Rx levETIRAcetam [Keppra TAB] 1,000 mg PO BID #60 tablet 08/19/18 Unknown Rx Amoxicillin/Potassium Clav 1 each PO BID #10 tablet 09/08/18 Unknown Rx [Augmentin 500-125 Tablet] Prednisone [predniSONE 10 mg 10 mg PO .TAPER #1 tab.ds.pk 09/08/18 Unknown Rx (6-Day Pack, 21 Tabs)] Dicyclomine [Bentyl] 10 mg PO QID PRN #20 capsule 09/10/18 Unknown Rx Ondansetron [Zofran Odt] 4 mg PO Q8HR PRN #20 tab.rapdis 09/10/18 Unknown Rx Allergies Allergy/AdvReac Type Severity Reaction Status Date / Time acetaminophen [From Percocet] Allergy Itching Verified 04/21/18 08:28 lisinopril Allergy Swelling Verified 04/21/18 08:28 metoprolol Allergy Unknown Verified 04/21/18 08:28 oxycodone [From Percocet] Allergy Itching Verified 04/21/18 08:28 oxycodone HCl [From Percocet] AdvReac Unknown Verified 04/21/18 08:28 ED Review of Systems ROS: Stated complaint: BODY PAIN Other details as noted in HPI Constitutional: malaise Eyes: denies: eye discharge ENT: denies: epistaxis Respiratory: shortness of breath (chronic) Cardiovascular: denies: syncope Gastrointestinal: abdominal pain Genitourinary: denies: dysuria Musculoskeletal: arthralgia, myalgia Skin: denies: lesions Neurological: weakness Psychiatric: anxiety ED Past Medical Hx - Past Medical History Hx Hypertension: Yes Hx Congestive Heart Failure: Yes Hx Diabetes: No Hx Renal Disease: Yes (Tues, Thurs, Sat) Hx Arthritis: Yes Hx Headaches / Migraines: Yes Hx Seizures: Yes (2 seizures last month) Hx Asthma: Yes Hx COPD: No Additional medical history: Lupus - Surgical History Additional Surgical History: RIGHT ARM graft - Social History Smoking Status: Former Smoker Substance Use Type: None - Medications Home Medications: Home Medications Medication Instructions Recorded Confirmed Last Taken Type Furosemide [Lasix] 80 mg PO QDAY #30 tablet 04/23/18 08/11/18 Unknown Rx Albuterol Sulfate [Proair 2 puff IH Q4H PRN #1 pump 07/15/18 08/11/18 Unknown Rx Respiclick] Hydroxychloroquine [Plaquenil] 200 mg PO QDAY #30 tablet 07/24/18 08/11/18 Unknown Rx Clonidine HCl [Catapres] 0.3 mg PO TID 08/11/18 08/11/18 Unknown History Labetalol [Normodyne TAB] 200 mg PO TID 08/11/18 08/11/18 Unknown History Losartan [Cozaar] 100 mg PO QDAY 08/11/18 08/11/18 Unknown History Sertraline [Zoloft] 25 mg PO QDAY 08/11/18 08/11/18 Unknown History hydrALAZINE [Apresoline TAB] 100 mg PO TID 08/11/18 08/11/18 Unknown History HYDROcodone/APAP 10-325 [[place] 1 each PO Q4HR PRN #7 tablet 08/14/18 Unknown Rx 10-325 mg TAB] Phenytoin [Dilantin] 100 mg PO TID #90 capsule.er 08/19/18 Unknown Rx levETIRAcetam [Keppra TAB] 1,000 mg PO BID #60 tablet 08/19/18 Unknown Rx Amoxicillin/Potassium Clav 1 each PO BID #10 tablet 09/08/18 Unknown Rx [Augmentin 500-125 Tablet] Prednisone [predniSONE 10 mg 10 mg PO .TAPER #1 tab.ds.pk 09/08/18 Unknown Rx (6-Day Pack, 21 Tabs)] Dicyclomine [Bentyl] 10 mg PO QID PRN #20 capsule 09/10/18 Unknown Rx Ondansetron [Zofran Odt] 4 mg PO Q8HR PRN #20 tab.rapdis 09/10/18 Unknown Rx ED Physical Exam - General Limitations: No Limitations General appearance: alert, obese - Head Head exam: Present: atraumatic, normocephalic - Eye Eye exam: Present: normal appearance, EOMI - ENT ENT exam: Present: normal exam, normal orophraynx, mucous membranes moist, normal external ear exam - Neck Neck exam: Present: normal inspection, full ROM. Absent: tenderness, meningismus - Respiratory Respiratory exam: Present: normal lung sounds bilaterally, decreased breath sounds. Absent: respiratory distress - Cardiovascular Cardiovascular Exam: Present: regular rate, normal rhythm, normal heart sounds. Absent: bradycardia, tachycardia, irregular rhythm, systolic murmur, diastolic murmur, rubs, gallop - GI/Abdominal GI/Abdominal exam: Present: soft, tenderness, other (patient laying on her left hand side, will not lay flat for an abdominal examination, and appears to deliberately tense musculature when examined.). Absent: distended, guarding, rebound, rigid, pulsatile mass - Extremities Exam Extremities exam: Present: normal inspection (right upper extremity fistula, with no redness, pus or street), full ROM, pedal edema, other (2+ pulses noted in the bilateral upper, lower extremities. Compartments soft. No long bony tenderness. The pelvis is stable.). Absent: calf tenderness - Back Exam Back exam: Present: normal inspection, full ROM. Absent: paraspinal tenderness, vertebral tenderness - Neurological Exam Neurological exam: Present: alert, oriented X3, other (Extraocular movements intact. Tongue midline. No facial droop. Facial sensation intact to light touch in the V1, V2, V3 distribution bilaterally. 5 and 5 strength in 4 extremities.. Sensation is intact to light touch in 4 extremities.). Absent: motor sensory deficit - Psychiatric Psychiatric exam: Present: anxious - Skin Skin exam: Present: warm, dry, intact, normal color. Absent: rash ED Course Vital Signs 09/10/18 09/10/18 09/10/18 05:53 05:54 07:00 Temperature 97.6 F Pulse Rate 88 88 89 Respiratory 22 16 10 L Rate Blood Pressure 174/110 178/120 Blood Pressure 174/110 [Left] O2 Sat by Pulse 98 89 Oximetry 09/10/18 09/10/18 09/10/18 07:31 07:55 08:00 Temperature Pulse Rate 91 H 92 H Respiratory 13 22 26 H Rate Blood Pressure 178/120 185/122 Blood Pressure [Left] O2 Sat by Pulse Oximetry 09/10/18 09/10/18 09/10/18 08:30 09:00 09:34 Temperature Pulse Rate 103 H 94 H Respiratory 10 L 26 H Rate Blood Pressure 185/122 191/121 191/123 Blood Pressure [Left] O2 Sat by Pulse Oximetry - Reevaluation(s) Reevaluation #1: 09/10/18 07:36 Differential diagnosis, including without limited to: Drug-seeking behavior, lupus, hyperkalemia, pneumonia, constipation, narcotic bowel syndrome, intra- abdominal infection Assessment and plan: 28-year-old female with chronic abdominal pain, chronic drug-seeking tendencies, mildly hypertensive, does not have crackles or rales, now with [place]'s complaint of abdominal pain. I have evaluated this patient multiple times in the past. I suspect the patient may have secondary gain intention. Nevertheless, she was treated empirically with ketamine, 20 mg for her pain, which did not really improve her symptoms, and unfortunately the patient is allergic/intolerance to multiple other analgesic medications. She is not a candidate for IV lidocaine secondary to her renal insufficiency. This hospital does not have intravenous acetaminophen, and she also reports allergy/intolerance to acetaminophen. This patient is not an NSAID candidate given her underlying renal insufficiency. I will therefore treat the patient's pain with hydromorphone, and we will obtain noncontrast CT scan of the abdomen and pelvis. Patient reports having negative CT scan at [facility] recently as well. Doubt urinary tract infection, patient already prescribed Augmentin, so if she cannot or will not produce a urine sample, I will recommend that she continue her outpatient antibiotic therapy, follow back up with her primary care doctor or chocolate finisher. Reevaluation #2: 09/10/18 09:49 CT scan negative for acute disease. Has not been able to produce a urine sample. Blood pressure improved. Patient will be discharged to follow-up with her outpatient chocolate finisher and pain specialist. Reevaluation #3: 09/10/18 10:35 Change in plans. Patient endorsed to her aunt, over the phone, that she wanted to hurt herself. The aunt, Ms. Carin Arita; [phone], informed this provider, that the patient indicated over the phone that she wanted to hurt herself and possibly kill herself. The patient is brought back to the emergency room. sHe is placed on a 1013. Her outpatient medications will be continued. She will be placed on daily basic metabolic panel draws. We will continue her current outpatient medications. A psychiatric consultation has been requested. At this point in time, there does not appear to be in immediate medical contraindication to psychiatric admission, evaluation, consultation. ED Medical Decision Making - Lab Data Result diagrams: 09/10/18 06:56 09/10/18 06:57 Vital Signs 09/10/18 05:53 Temperature 97.6 F Pulse Rate 88 Respiratory 22 Rate Blood Pressure 174/110 Blood Pressure 174/110 [Left] O2 Sat by Pulse 98 Oximetry Lab Results 09/10/18 09/10/18 09/10/18 Range/Units 06:42 06:56 06:57 WBC 5.1 (4.5-11.0) K/mm3 RBC 4.30 (3.65-5.03) M/mm3 Hgb 12.1 (10.1-14.3) gm/dl Hct 37.6 (30.3-42.9) % MCV 87 (79-97) fl MCH 28 (28-32) pg MCHC 32 (30-34) % RDW 19.5 H (13.2-15.2) % Plt Count 190 (140-440) K/mm3 Lymph % (Auto) 16.4 (13.4-35.0) % [place] % (Auto) 12.6 H (0.0-7.3) % Eos % (Auto) 1.5 (0.0-4.3) % Baso % (Auto) 0.2 (0.0-1.8) % Lymph # 0.8 L (1.2-5.4) K/mm3 [place] # 0.6 (0.0-0.8) K/mm3 Eos # 0.1 (0.0-0.4) K/mm3 Baso # 0.0 (0.0-0.1) K/mm3 Seg Neutrophils % 69.3 (40.0-70.0) % Seg Neutrophils # 3.5 (1.8-7.7) K/mm3 Sodium 134 L (137-145) mmol/L Potassium 4.0 (3.6-5.0) mmol/L Chloride 90.9 L (98-107) mmol/L Carbon Dioxide 21 L (22-30) mmol/L Anion Gap 26 mmol/L BUN 56 H (7-17) mg/dL Creatinine 9.2 H (0.7-1.2) mg/dL Estimated GFR 6 ml/min BUN/Creatinine Ratio 6 % Glucose 77 (65-100) mg/dL Calcium 8.3 L (8.4-10.2) mg/dL Total Bilirubin 0.30 (0.1-1.2) mg/dL AST 19 (5-40) units/L ALT 6 L (7-56) units/L Alkaline Phosphatase 104 (35-129) units/L Total Protein 7.8 (6.3-8.2) g/dL Albumin 3.4 L (3.9-5) g/dL Albumin/Globulin Ratio 0.8 % Lipase 126 H (13-60) units/L HCG, Qual Negative (Negative) Critical care attestation.: If time is entered above; I have spent that time in minutes in the direct care of this critically ill patient, excluding procedure time. ED Disposition Clinical Impression: ESRD (end stage renal disease), Chronic abdominal pain, Suicidal ideation Disposition: DC/TX-65 PSY HOSP/PSY UNIT Is pt being admited?: No Does the pt Need Aspirin: No Condition: Good Instructions: Chronic Kidney Disease (ED) Additional Instructions: Take the medications as needed/directed. Follow-up with your primary care doctor or chocolate finisher within the next week. Follow-up with your outpatient dialysis as scheduled. Return to the ER right away with new, worsening or different symptoms. Please note that blood pressure was elevated in the emergency room. This needs to be followed up and managed by her primary care doctor or chocolate finisher. Long-term complications of hypertension and elevated blood pressure includes stroke, heart attack, disability, paralysis, loss of quality of life. Prescriptions: Dicyclomine [Bentyl] 10 mg PO QID PRN #20 capsule PRN Reason: Pain Ondansetron [Zofran Odt] 4 mg PO Q8HR PRN #20 tab.rapdis PRN Reason: Nausea Referrals: PRIMARY CARE, [Primary Care Provider] - 3-5 Days GABRIEL BULLARD MD [Staff Physician] - 3-5 Days SREEDHAR HARDIN MD [Staff Physician] - 3-5 Days
[2018-09-10] MEDS ORDERED: APRESOLINE IV ONE (09:25)
--- NOTE | 2018-09-10 09:46 | Cat Scan Report ---
CT ABDOMEN PELVIS WITHOUT CONTRAST: HISTORY: abdominal pain. COMPARISON: 07/22/18. TECHNIQUE: Helical CT in 1.25mm intervals without IV contrast. Sagittal and coronal reconstructions. FINDINGS: Lung bases: Moderate cardiomegaly is unchanged. The visualized lung bases are adequately aerated. Trace left pleural fluid is noted. Liver: Normal. Biliary system: A solitary 5 mm gallstone is noted in the gallbladder. No biliary dilatation or inflammation is appreciated. Pancreas: Normal. Spleen: Normal. Kidneys/ureters/bladder: Bilateral renal atrophy is unchanged. No evidence for hydronephrosis, focal renal lesion or nephrolithiasis. The ureters and bladder are unremarkable. Adrenal glands: Normal. Aorta: Normal. Intestines: Within normal limits given no oral contrast was administered. No evidence for obstruction or focal inflammation. Appendix: Not confidently identified. Pelvic viscera: Normal. Ascites: Small pelvic ascites has developed of uncertain etiology. Adenopathy: None. Musculoskeletal: Intact. No fracture or suspicious bony lesion. IMPRESSION: Moderate cardiomegaly and trace left pleural effusion. Bilateral renal atrophy consistent with chronic renal parenchymal disease. Gallstone. Small pelvic ascites. No acute inflammatory process is appreciated.
[2018-09-10] MEDS ORDERED: NON-FORMULARY (Furosemide [Lasix] 80 MG) PO SCH (10:30)
[2018-09-10] MEDS ORDERED: NON-FORMULARY (Albuterol Sulfate [Proair Respiclick] 2 PUFF) IH PRN (10:30)
[2018-09-10] MEDS ORDERED: NON-FORMULARY (Prednisone [Prednisone 10 Mg (6-Day Pack, 21 Tabs)] 10 MG) PO SCH (10:30)
[2018-09-10] MEDS ORDERED: NON-FORMULARY (Losartan [Cozaar] 100 MG) PO SCH (10:30)
[2018-09-10] MEDS ORDERED: ZOFRAN ODT PO PRN (10:36)
[2018-09-10] MEDS: ATIVAN IM PRN ×2 (10:51→19:05)
[2018-09-10] MEDS ORDERED: PROVENTIL IH PRN (12:01)
[2018-09-10] MEDS: AUGMENTIN 500 MG PO SCH ×2 (12:09→23:30)
[2018-09-10] MEDS: COZAAR PO SCH (12:09)
[2018-09-10] MEDS: PLAQUENIL PO SCH (12:09)
[2018-09-10] MEDS: KEPPRA PO SCH ×2 (12:09→23:30)
[2018-09-10] MEDS: BENTYL PO PRN (12:10)
[2018-09-10] MEDS: APRESOLINE PO SCH ×2 (13:18→22:00)
[2018-09-10] MEDS: DILANTIN PO SCH ×2 (13:18→22:00)
[2018-09-10] MEDS: CATAPRES PO SCH ×2 (13:18→22:00)
[2018-09-10] MEDS: LASIX PO SCH (13:32)
[2018-09-10] MEDS ORDERED: NON-FORMULARY (Clonidine Hcl [Catapres] 0.3 MG) PO SCH (14:00)
[2018-09-10] MEDS ORDERED: APRESOLINE PO ONE (21:57)
[2018-09-11] MEDS: ATIVAN IM PRN (04:42)
[2018-09-11 04:58] LABS: Bilirubin,Urine NEG (Negative); Blood,Urine SM (Negative); Color,Urine Yellow (Yellow); Urobilinogen,Urine < 2.0 mg/dL (<2.0)
[2018-09-11 04:58] LABS: Amphetamine Screen,Urine PRESUMPTIVE NEGATIVE; Benzodiazepines Screen,Urine PRESUMPTIVE NEGATIVE; Cannabinoid Screen,Urine PRESUMPTIVE NEGATIVE; Methadone Screen,Urine PRESUMPTIVE NEGATIVE; Opiate Screen,Urine PRESUMPTIVE NEGATIVE
[2018-09-11 05:13] LABS: Cocaine Screen,Urine PRESUMPTIVE POSITIVE
[2018-09-11 06:20] LABS: Calcium 8.6 mg/dL (8.4-10.2)
[2018-09-11] MEDS: CATAPRES PO SCH ×3 (09:37→22:00)
[2018-09-11] MEDS: APRESOLINE PO SCH ×3 (09:38→22:05)
[2018-09-11] MEDS: KEPPRA PO SCH ×2 (09:53→22:00)
[2018-09-11] MEDS: DILANTIN PO SCH ×3 (09:54→22:05)
[2018-09-11] MEDS: AUGMENTIN 500 MG PO SCH ×2 (10:23→22:05)
[2018-09-11] MEDS: COZAAR PO SCH (10:23)
[2018-09-11] MEDS: LASIX PO SCH (10:24)
[2018-09-11] MEDS: PLAQUENIL PO SCH (10:24)
--- NOTE | 2018-09-11 10:57 | Consultation ---
History of Present Illness - Reason for Consult Consult date: 09/11/18 Reason for consult: Mental Health Evaluation Requesting physician: EILEEN BLANC - Chief Complaint Chief complaint: "I was upset" - History of Present Psychiatric Illness 28 y.o. AA female who presented to the ER for generalized body pain. The patient endorsed SI's to a family member and that information was relayed to the staff and the patient was placed on a 1013. Today the patient is calm and cooperative during the assessment. She stated that she was in pain yesterday when discharged and admitted that she called her aunt and mentioned "something about wanting to ." She stated that her pain isn't being managed well at this time. She stated that her Anesthesiology Physician Assistant prescribed her Zoloft. She rate her depression 4/10, with 10 being the worse. She denies previous suicide attempts in the past. She is adamant that she was upset yesterday when she made the suicide statement. She denies SI/HI's and AVH's. She denies erratic sleep and a poor appetite. She denies alcohol consumption (etoh), but acknowledged using cocaine. Medications and Allergies Allergies Allergy/AdvReac Type Severity Reaction Status Date / Time acetaminophen [From Percocet] Allergy Itching Verified 04/21/18 08:28 lisinopril Allergy Swelling Verified 04/21/18 08:28 metoprolol Allergy Unknown Verified 04/21/18 08:28 oxycodone [From Percocet] Allergy Itching Verified 04/21/18 08:28 oxycodone HCl [From Percocet] AdvReac Unknown Verified 04/21/18 08:28 Home Medications Medication Instructions Recorded Confirmed Last Taken Type Furosemide [Lasix] 80 mg PO QDAY #30 tablet 04/23/18 09/11/18 Unknown Rx Albuterol Sulfate [Proair 2 puff IH Q4H PRN #1 pump 07/15/18 09/12/18 Unknown Rx Respiclick] Hydroxychloroquine [Plaquenil] 200 mg PO QDAY #30 tablet 07/24/18 09/11/18 Unknown Rx Clonidine HCl [Catapres] 0.3 mg PO TID 08/11/18 09/11/18 Unknown History Labetalol [Normodyne TAB] 200 mg PO TID 08/11/18 09/12/18 Unknown History Losartan [Cozaar] 100 mg PO QDAY 08/11/18 09/11/18 Unknown History Sertraline [Zoloft] 25 mg PO QDAY 08/11/18 09/11/18 Unknown History hydrALAZINE [Apresoline TAB] 100 mg PO TID 08/11/18 09/11/18 Unknown History HYDROcodone/APAP 10-325 [[place] 1 each PO Q4HR PRN #7 tablet 08/14/18 09/12/18 Unknown Rx 10-325 mg TAB] Phenytoin [Dilantin] 100 mg PO TID #90 capsule.er 08/19/18 09/11/18 Unknown Rx levETIRAcetam [Keppra TAB] 1,000 mg PO BID #60 tablet 08/19/18 09/12/18 Unknown Rx Amoxicillin/Potassium Clav 1 each PO BID #10 tablet 09/08/18 09/12/18 Unknown Rx [Augmentin 500-125 Tablet] Prednisone [predniSONE 10 mg 10 mg PO .TAPER #1 tab.ds.pk 09/08/18 09/11/18 Unknown Rx (6-Day Pack, 21 Tabs)] Dicyclomine [Bentyl] 10 mg PO QID PRN #20 capsule 09/10/18 Unknown Rx Ondansetron [Zofran Odt] 4 mg PO Q8HR PRN #20 tab.rapdis 09/10/18 Unknown Rx Active Meds: Active Medications Albuterol (Proventil) 2.5 mg IH Q4HRT PRN PRN Reason: Shortness Of Breath Amoxicillin/Clavulanate Potassium (Augmentin 500 Mg) 1 each PO BID [facility] Stop: 09/12/18 22:01 Last Admin: 09/11/18 10:23 Dose: 1 each Documented by: Clonidine HCl (Catapres) 0.3 mg PO Q8HR [facility] Last Admin: 09/11/18 09:37 Dose: 0.3 mg Documented by: Dicyclomine HCl (Bentyl) 10 mg PO Q6HR PRN PRN Reason: Pain , Severe (7-10) Last Admin: 09/10/18 12:10 Dose: 10 mg Documented by: Furosemide (Lasix) 80 mg PO QDAY [facility] Last Admin: 09/11/18 10:24 Dose: 80 mg Documented by: Hydralazine HCl (Apresoline) 100 mg PO TID [facility] Last Admin: 09/11/18 09:38 Dose: 100 mg Documented by: Hydroxychloroquine Sulfate (Plaquenil) 200 mg PO QDAY [facility] Last Admin: 09/11/18 10:24 Dose: 200 mg Documented by: Levetiracetam (Keppra) 1,000 mg PO BID [facility] Last Admin: 09/11/18 09:53 Dose: 1,000 mg Documented by: Lorazepam (Ativan) 2 mg IM Q4HR PRN PRN Reason: Agitation Last Admin: 09/11/18 04:42 Dose: 2 mg Documented by: Losartan Potassium (Cozaar) 100 mg PO QDAY [facility] Last Admin: 09/11/18 10:23 Dose: 100 mg Documented by: Miscellaneous Medication (Prednisone [Prednisone 10 Mg (6-Day Pack, 21 Tabs)]) 10 mg PO .TAPER [facility] Ondansetron HCl (Zofran Odt) 4 mg PO Q6HR PRN PRN Reason: Nausea Phenytoin (Dilantin) 100 mg PO TID [facility] Last Admin: 09/11/18 09:54 Dose: 100 mg Documented by: Past psychiatric history - Past Medical History Past Medical History: ESRD, hypertension Past Surgical History: Other (Right Arm Graft) - past Psychiatric treatment and history psychiatric treatment history: Hx of depression per the patient. Denies a fam psy hx. - Social History Social history: lives with family Mental Status Exam - Vital signs Last Vital Signs Temp 99.9 F H 09/11/18 01:00 Pulse 117 H 09/11/18 10:23 Resp 16 09/11/18 01:00 BP 143/92 09/11/18 10:23 Pulse Ox 100 09/11/18 01:00 - Exam Narrative exam: MSE: Appearance: calm, cooperative Behavior: regular eye contact Speech: regular rate and tone Mood: "okay" Affect: congruent to mood Thought Process: circumstantial Thought Content: denies SI/HI's and AVH's Motor Activity: sitting up in bed Cognition: A/O x 3 Insight: fair Judgment: variable Results Result Diagrams: 09/10/18 06:56 09/11/18 05:53 Abnormal lab results 09/10/18 09/11/18 Range/Units 04:10 05:53 Sodium 133 L (137-145) mmol/L Chloride 91.4 L (98-107) mmol/L Carbon Dioxide 21 L (22-30) mmol/L BUN 65 H (7-17) mg/dL Creatinine 10.5 H (0.7-1.2) mg/dL Glucose 116 H (65-100) mg/dL Urine pH 8.0 H (5.0-7.0) Urine WBC (Auto) 12.0 H (0.0-6.0) /HPF All other labs normal. Assessment and Plan Assessment and plan: Impression: Hx of depression. Substance Use DO (cocaine). Today the patient is calm and cooperative during the assessment. DDx: Somatic Symptom DO Recommendation/Plan: Continue 1013 and gather collateral information. Start Zoloft 25 mg PO daily for depression. Discussed possible suidicality/medication induced jose ramon with the patient reference Zoloft. Dispo: Once collateral information is gathered, proper dispo will be determined. Staffed with Dr Valladarse.
[2018-09-11] MEDS: ZOLOFT PO SCH (12:00)
[2018-09-11] MEDS: BENTYL PO PRN ×2 (18:51→22:05)
[2018-09-11] MEDS ORDERED: BENTYL ONE (22:32)
[2018-09-12] MEDS ORDERED: NITRO-BID 2% TP ONE (09:05)
--- NOTE | 2018-09-12 09:42 | XRay Report ---
FINAL REPORT EXAM: XR CHEST 1V AP HISTORY: hypertension TECHNIQUE: Frontal chest x-ray. PRIORS: Chest x-ray September 07, 2018. FINDINGS: Stable cardiomegaly. Prominent bilateral pulmonary markings with subtle airspace opacities. No pneumothorax. Small bilater al pleural effusions blunt the costophrenic angles. There are no suspicious osseous lesions. Left axillary vascular stents and surgical clips are unchanged. IMPRESSION: Stable cardiomegaly. Pulmonary findings suggest pulmonary vascular congestion with edema. Slightly improved compared to pr ior. Small bilateral pleural effusions.
[2018-09-12] MEDS: CATAPRES PO SCH ×3 (10:11→22:04)
[2018-09-12] MEDS: DILANTIN PO SCH ×3 (10:11→20:25)
[2018-09-12] MEDS: APRESOLINE PO SCH ×3 (10:11→20:25)
[2018-09-12] MEDS: COZAAR PO SCH (10:15)
[2018-09-12] MEDS: ZOLOFT PO SCH (10:15)
[2018-09-12] MEDS: AUGMENTIN 500 MG PO SCH ×2 (10:15→22:02)
[2018-09-12] MEDS: LASIX PO SCH (10:15)
[2018-09-12] MEDS: PLAQUENIL PO SCH (10:15)
[2018-09-12] MEDS: KEPPRA PO SCH ×2 (10:16→22:02)
--- NOTE | 2018-09-12 10:27 | Event Note ---
Date: 09/12/18 Patient refused laboratory studies this morning. She is having shortness of breath, a chest x-ray had shown pulmonary vascular congestion, and she is noted to have elevated blood pressure. Patient reports that her last dialysis session was on Friday. I have contacted her covering family resource specialist, Dr. Hardin, who will arrange for urgent dialysis. The case is presented to the hospital physician, Dr. Rodarte, who has accepted the patient on behalf of Dr. Henderson. Psychiatry team may follow the patient's as an inpatient. Vital Signs 09/10/18 09/10/18 09/10/18 05:53 05:54 07:00 Temperature 97.6 F Pulse Rate 88 88 89 Respiratory 22 16 10 L Rate Blood Pressure 174/110 178/120 Blood Pressure 174/110 [Left] O2 Sat by Pulse 98 89 Oximetry 09/10/18 09/10/18 09/10/18 07:31 07:55 08:00 Temperature Pulse Rate 91 H 92 H Respiratory 13 22 26 H Rate Blood Pressure 178/120 185/122 Blood Pressure [Left] O2 Sat by Pulse Oximetry 09/10/18 09/10/18 09/10/18 08:30 09:00 09:34 Temperature Pulse Rate 103 H 94 H Respiratory 10 L 26 H Rate Blood Pressure 185/122 191/121 191/123 Blood Pressure [Left] O2 Sat by Pulse Oximetry 09/10/18 09/10/18 09/10/18 13:17 13:18 20:00 Temperature 98.7 F 100 F H Pulse Rate 118 H 118 H 112 H Respiratory 16 20 Rate Blood Pressure 164/114 Blood Pressure 162/114 155/90 [Left] O2 Sat by Pulse 100 96 Oximetry 09/10/18 09/11/18 09/11/18 22:00 01:00 09:37 Temperature 99.9 F H Pulse Rate 72 104 H 118 H Respiratory 16 Rate Blood Pressure 142/94 180/124 Blood Pressure 158/100 [Left] O2 Sat by Pulse 100 Oximetry 09/11/18 09/11/18 09/11/18 10:23 14:31 16:04 Temperature Pulse Rate 117 H 114 H Respiratory 20 Rate Blood Pressure 143/92 173/113 Blood Pressure [Left] O2 Sat by Pulse Oximetry 09/11/18 09/12/18 09/12/18 19:00 02:00 10:12 Temperature 98.9 F 99.0 F Pulse Rate 98 H 96 H 111 H Respiratory 18 18 Rate Blood Pressure 184/119 Blood Pressure 141/94 145/92 [Left] O2 Sat by Pulse 100 99 Oximetry 09/12/18 10:15 Temperature Pulse Rate 111 H Respiratory Rate Blood Pressure 184/119 Blood Pressure [Left] O2 Sat by Pulse Oximetry Lab Results 09/10/18 09/10/18 09/10/18 Range/Units 04:10 06:42 06:56 WBC 5.1 (4.5-11.0) K/mm3 RBC 4.30 (3.65-5.03) M/mm3 Hgb 12.1 (10.1-14.3) gm/dl Hct 37.6 (30.3-42.9) % MCV 87 (79-97) fl MCH 28 (28-32) pg MCHC 32 (30-34) % RDW 19.5 H (13.2-15.2) % Plt Count 190 (140-440) K/mm3 Lymph % (Auto) 16.4 (13.4-35.0) % [place] % (Auto) 12.6 H (0.0-7.3) % Eos % (Auto) 1.5 (0.0-4.3) % Baso % (Auto) 0.2 (0.0-1.8) % Lymph # 0.8 L (1.2-5.4) K/mm3 [place] # 0.6 (0.0-0.8) K/mm3 Eos # 0.1 (0.0-0.4) K/mm3 Baso # 0.0 (0.0-0.1) K/mm3 Seg Neutrophils % 69.3 (40.0-70.0) % Seg Neutrophils # 3.5 (1.8-7.7) K/mm3 Sodium (137-145) mmol/L Potassium (3.6-5.0) mmol/L Chloride (98-107) mmol/L Carbon Dioxide (22-30) mmol/L Anion Gap mmol/L BUN (7-17) mg/dL Creatinine (0.7-1.2) mg/dL Estimated GFR ml/min BUN/Creatinine Ratio % Glucose (65-100) mg/dL Calcium (8.4-10.2) mg/dL Total Bilirubin (0.1-1.2) mg/dL AST (5-40) units/L ALT (7-56) units/L Alkaline Phosphatase (35-129) units/L Total Protein (6.3-8.2) g/dL Albumin (3.9-5) g/dL Albumin/Globulin Ratio % Lipase (13-60) units/L HCG, Qual Negative (Negative) Urine Color Yellow (Yellow) Urine Turbidity Clear (Clear) Urine pH 8.0 H (5.0-7.0) Ur Specific [place] 1.009 (1.003-1.030) Urine Protein 100 mg/dl (Negative) mg/dL Urine Glucose (UA) Neg (Negative) mg/dL Urine Ketones Neg (Negative) mg/dL Urine Blood Sm (Negative) Urine Nitrite Neg (Negative) Urine Bilirubin Neg (Negative) Urine Urobilinogen < 2.0 (<2.0) mg/dL Ur Leukocyte Esterase Tr (Negative) Urine WBC (Auto) 12.0 H (0.0-6.0) /HPF Urine RBC (Auto) 8.0 (0.0-6.0) /HPF U Epithel Cells (Auto) 3.0 (0-13.0) /HPF Urine Opiates Screen Urine Methadone Screen Ur Barbiturates Screen Ur Phencyclidine Scrn Ur Amphetamines Screen U Benzodiazepines Scrn Urine Cocaine Screen U Marijuana (THC) Screen Drugs of Abuse Note 09/10/18 09/11/18 09/11/18 Range/Units 06:57 04:09 05:53 WBC (4.5-11.0) K/mm3 RBC (3.65-5.03) M/mm3 Hgb (10.1-14.3) gm/dl Hct (30.3-42.9) % MCV (79-97) fl MCH (28-32) pg MCHC (30-34) % RDW (13.2-15.2) % Plt Count (140-440) K/mm3 Lymph % (Auto) (13.4-35.0) % [place] % (Auto) (0.0-7.3) % Eos % (Auto) (0.0-4.3) % Baso % (Auto) (0.0-1.8) % Lymph # (1.2-5.4) K/mm3 [place] # (0.0-0.8) K/mm3 Eos # (0.0-0.4) K/mm3 Baso # (0.0-0.1) K/mm3 Seg Neutrophils % (40.0-70.0) % Seg Neutrophils # (1.8-7.7) K/mm3 Sodium 134 L 133 L (137-145) mmol/L Potassium 4.0 4.9 D (3.6-5.0) mmol/L Chloride 90.9 L 91.4 L (98-107) mmol/L Carbon Dioxide 21 L 21 L (22-30) mmol/L Anion Gap 26 26 mmol/L BUN 56 H 65 H (7-17) mg/dL Creatinine 9.2 H 10.5 H (0.7-1.2) mg/dL Estimated GFR 6 5 ml/min BUN/Creatinine Ratio 6 6 % Glucose 77 116 H (65-100) mg/dL Calcium 8.3 L 8.6 (8.4-10.2) mg/dL Total Bilirubin 0.30 (0.1-1.2) mg/dL AST 19 (5-40) units/L ALT 6 L (7-56) units/L Alkaline Phosphatase 104 (35-129) units/L Total Protein 7.8 (6.3-8.2) g/dL Albumin 3.4 L (3.9-5) g/dL Albumin/Globulin Ratio 0.8 % Lipase 126 H (13-60) units/L HCG, Qual (Negative) Urine Color (Yellow) Urine Turbidity (Clear) Urine pH (5.0-7.0) Ur Specific [place] (1.003-1.030) Urine Protein (Negative) mg/dL Urine Glucose (UA) (Negative) mg/dL Urine Ketones (Negative) mg/dL Urine Blood (Negative) Urine Nitrite (Negative) Urine Bilirubin (Negative) Urine Urobilinogen (<2.0) mg/dL Ur Leukocyte Esterase (Negative) Urine WBC (Auto) (0.0-6.0) /HPF Urine RBC (Auto) (0.0-6.0) /HPF U Epithel Cells (Auto) (0-13.0) /HPF Urine Opiates Screen Presumptive negative Urine Methadone Screen Presumptive negative Ur Barbiturates Screen Presumptive negative Ur Phencyclidine Scrn Presumptive negative Ur Amphetamines Screen Presumptive negative U Benzodiazepines Scrn Presumptive negative Urine Cocaine Screen Presumptive positive U Marijuana (THC) Screen Presumptive negative Drugs of Abuse Note Disclamer
[2018-09-12] MEDS: ATIVAN IM PRN ×2 (10:38)
--- NOTE | 2018-09-12 12:40 | Consultation ---
History of Present Illness - Reason for Consult Consult date: 09/12/18 end stage renal disease Requesting physician: EILEEN BLANC - History of Present Illness This is a 28-year-old female with history of end-stage renal disease, seizure disorder and depression. She presented to the emergency room a few days ago with generalized body aches. She however verbalized some suicidal ideation and she was placed on 1013 and In the emergency room. Her last hemodialysis treatment was approximately 4 days ago This morning she was starting to have increasing shortness of breath and also hypertensive. Therefore a renal consultation was called for urgent dialysis. She is also now being admitted for further management. She undergoes hemodialysis at [facility] on a TTS schedule Past History Past Medical History: ESRD, hypertension, seizures, other (seizure disorder and depression) Past Surgical History: Other (Right Arm Graft) Social history: lives with family Medications and Allergies Allergies Allergy/AdvReac Type Severity Reaction Status Date / Time acetaminophen [From Percocet] Allergy Itching Verified 04/21/18 08:28 lisinopril Allergy Swelling Verified 04/21/18 08:28 metoprolol Allergy Unknown Verified 04/21/18 08:28 oxycodone [From Percocet] Allergy Itching Verified 04/21/18 08:28 oxycodone HCl [From Percocet] AdvReac Unknown Verified 04/21/18 08:28 Home Medications Medication Instructions Recorded Confirmed Last Taken Type Furosemide [Lasix] 80 mg PO QDAY #30 tablet 04/23/18 09/11/18 Unknown Rx Albuterol Sulfate [Proair 2 puff IH Q4H PRN #1 pump 07/15/18 09/12/18 Unknown Rx Respiclick] Hydroxychloroquine [Plaquenil] 200 mg PO QDAY #30 tablet 07/24/18 09/11/18 Unknown Rx Clonidine HCl [Catapres] 0.3 mg PO TID 08/11/18 09/11/18 Unknown History Labetalol [Normodyne TAB] 200 mg PO TID 08/11/18 09/12/18 Unknown History Losartan [Cozaar] 100 mg PO QDAY 08/11/18 09/11/18 Unknown History Sertraline [Zoloft] 25 mg PO QDAY 08/11/18 09/11/18 Unknown History hydrALAZINE [Apresoline TAB] 100 mg PO TID 08/11/18 09/11/18 Unknown History HYDROcodone/APAP 10-325 [[place] 1 each PO Q4HR PRN #7 tablet 08/14/18 09/12/18 Unknown Rx 10-325 mg TAB] Phenytoin [Dilantin] 100 mg PO TID #90 capsule.er 08/19/18 09/11/18 Unknown Rx levETIRAcetam [Keppra TAB] 1,000 mg PO BID #60 tablet 08/19/18 09/12/18 Unknown Rx Amoxicillin/Potassium Clav 1 each PO BID #10 tablet 09/08/18 09/12/18 Unknown Rx [Augmentin 500-125 Tablet] Prednisone [predniSONE 10 mg 10 mg PO .TAPER #1 tab.ds.pk 09/08/18 09/11/18 Unknown Rx (6-Day Pack, 21 Tabs)] Dicyclomine [Bentyl] 10 mg PO QID PRN #20 capsule 09/10/18 Unknown Rx Ondansetron [Zofran Odt] 4 mg PO Q8HR PRN #20 tab.rapdis 09/10/18 Unknown Rx Active Meds: Active Medications Albuterol (Proventil) 2.5 mg IH Q4HRT PRN PRN Reason: Shortness Of Breath Amoxicillin/Clavulanate Potassium (Augmentin 500 Mg) 1 each PO BID [facility] Stop: 09/12/18 22:01 Last Admin: 09/12/18 10:15 Dose: 1 each Documented by: Clonidine HCl (Catapres) 0.3 mg PO Q8HR [facility] Last Admin: 09/12/18 10:11 Dose: Not Given Documented by: Dicyclomine HCl (Bentyl) 10 mg PO Q6HR PRN PRN Reason: Pain , Severe (7-10) Last Admin: 09/11/18 22:05 Dose: 10 mg Documented by: Furosemide (Lasix) 80 mg PO QDAY [facility] Last Admin: 09/12/18 10:15 Dose: 80 mg Documented by: Hydralazine HCl (Apresoline) 100 mg PO TID [facility] Last Admin: 09/12/18 10:11 Dose: 100 mg Documented by: Hydroxychloroquine Sulfate (Plaquenil) 200 mg PO QDAY [facility] Last Admin: 09/12/18 10:15 Dose: 200 mg Documented by: Levetiracetam (Keppra) 1,000 mg PO BID [facility] Last Admin: 09/12/18 10:16 Dose: 1,000 mg Documented by: Lorazepam (Ativan) 2 mg IM Q4HR PRN PRN Reason: Agitation Last Admin: 09/12/18 10:38 Dose: 2 mg Documented by: Losartan Potassium (Cozaar) 100 mg PO QDAY [facility] Last Admin: 09/12/18 10:15 Dose: 100 mg Documented by: Miscellaneous Medication (Prednisone [Prednisone 10 Mg (6-Day Pack, 21 Tabs)]) 10 mg PO .TAPER [facility] Ondansetron HCl (Zofran Odt) 4 mg PO Q6HR PRN PRN Reason: Nausea Last Admin: 09/12/18 11:03 Dose: 4 mg Documented by: Phenytoin (Dilantin) 100 mg PO TID [facility] Last Admin: 09/12/18 10:11 Dose: 100 mg Documented by: Sertraline HCl (Zoloft) 25 mg PO DAILY [facility] Last Admin: 09/12/18 10:15 Dose: 25 mg Documented by: Review of Systems All systems: negative (negative except as noted above) Exam - Vital Signs Vital signs: Vital Signs Temp Pulse Resp BP Pulse Ox 97.6 F 88 22 174/110 98 09/10/18 05:53 09/10/18 05:53 09/10/18 05:53 09/10/18 05:53 09/10/18 05:53 - General Appearance General appearance: well-developed, well-nourished, appears stated age EENT: PERRL, mucous membranes moist Neck: Present: neck supple, trachea midline. Absent: JVD/HJR, Masses Respiratory: Rales (fine basal crackles) Heart: regular, normal heart rate, S1S2, no murmurs Gastrointestinal: Present: normal, normoactive bowel sounds Integumentary: other (AV fistula in her right upper arm. Good bruit and thrill) Results - Lab Results 09/10/18 06:56 09/11/18 05:53 Most recent lab results Calcium 8.6 mg/dL (8.4-10.2) 09/11/18 05:53 Assessment and Plan Impression * End-stage renal disease on maintenance hemodialysis * Accelerated hypertension * Seizure disorder * Suicidal ideation * Noncompliance * Depression * Anemia secondary to ESRD * Fluid overload Recommendations * Arrange for hemodialysis for today * Remove fluid as tolerated * Adjust diet and meds for ESRD state * No IV, BP or venipuncture in her access arm * Binders with meals * Consider Cardene drip for blood pressure control * Adjust oral antihypertensive meds * Continue antiseizure meds * Avoid nephrotoxins * Thank you very much for the consultation. Shall follow along with you
[2018-09-12 12:53] LABS: Creatine Kinase MB 1.2 ng/mL (0.0-4.0)
[2018-09-12 12:54] LABS: Calcium 8.6 mg/dL (8.4-10.2)
--- NOTE | 2018-09-12 13:23 | History and Physical Report ---
History of Present Illness Date of admission: 09/12/18 10:27 Chief complaint: Im short of breath History of present illness: 28 YO Female with HTN, Nicotine Dependence, Lupus, OA, Cocaine Dependence, Seizure Disorder, Asthma, Migraine Headache, ESRD on HD (T,R,Sa) presents to ED for evaluation. Pt has been boarding in ED over the past 3 days for Suicide Ideation. [address] Pt states that she has experienced shortness of breath, generalized body pain over the past 3 days with worsening symptoms over the same time frame. Pt initially refused dialysis. Pt seen and reevaluated in ED and found to have ESRD, UTI, Respiratory Failure secondary to fluid overload. Nephrology consulted in ED for urgent dialysis. Pt admitted to medical floor. Pt denies fever, chills, trauma, Palpitations, NVD, Productive cough or recent ill contacts. Past History Past Medical History: ESRD, hypertension, seizures, other (seizure disorder and depression) Past Surgical History: Other (Right Arm Graft) Social history: lives with family Family history: hypertension Medications and Allergies Allergies Allergy/AdvReac Type Severity Reaction Status Date / Time acetaminophen [From Percocet] Allergy Itching Verified 04/21/18 08:28 lisinopril Allergy Swelling Verified 04/21/18 08:28 metoprolol Allergy Unknown Verified 04/21/18 08:28 oxycodone [From Percocet] Allergy Itching Verified 04/21/18 08:28 oxycodone HCl [From Percocet] AdvReac Unknown Verified 04/21/18 08:28 Home Medications Medication Instructions Recorded Confirmed Last Taken Type Furosemide [Lasix] 80 mg PO QDAY #30 tablet 04/23/18 09/11/18 Unknown Rx Albuterol Sulfate [Proair 2 puff IH Q4H PRN #1 pump 07/15/18 09/12/18 Unknown Rx Respiclick] Hydroxychloroquine [Plaquenil] 200 mg PO QDAY #30 tablet 07/24/18 09/11/18 Unknown Rx Clonidine HCl [Catapres] 0.3 mg PO TID 08/11/18 09/11/18 Unknown History Labetalol [Normodyne TAB] 200 mg PO TID 08/11/18 09/12/18 Unknown History Losartan [Cozaar] 100 mg PO QDAY 08/11/18 09/11/18 Unknown History Sertraline [Zoloft] 25 mg PO QDAY 08/11/18 09/11/18 Unknown History hydrALAZINE [Apresoline TAB] 100 mg PO TID 08/11/18 09/11/18 Unknown History HYDROcodone/APAP 10-325 [[place] 1 each PO Q4HR PRN #7 tablet 08/14/18 09/12/18 Unknown Rx 10-325 mg TAB] Phenytoin [Dilantin] 100 mg PO TID #90 capsule.er 08/19/18 09/11/18 Unknown Rx levETIRAcetam [Keppra TAB] 1,000 mg PO BID #60 tablet 08/19/18 09/12/18 Unknown Rx Amoxicillin/Potassium Clav 1 each PO BID #10 tablet 09/08/18 09/12/18 Unknown Rx [Augmentin 500-125 Tablet] Prednisone [predniSONE 10 mg 10 mg PO .TAPER #1 tab.ds.pk 09/08/18 09/11/18 Unknown Rx (6-Day Pack, 21 Tabs)] Dicyclomine [Bentyl] 10 mg PO QID PRN #20 capsule 09/10/18 Unknown Rx Ondansetron [Zofran Odt] 4 mg PO Q8HR PRN #20 tab.rapdis 09/10/18 Unknown Rx Active Meds: Active Medications Albuterol (Proventil) 2.5 mg IH Q4HRT PRN PRN Reason: Shortness Of Breath Amoxicillin/Clavulanate Potassium (Augmentin 500 Mg) 1 each PO BID [facility] Stop: 09/12/18 22:01 Last Admin: 09/12/18 10:15 Dose: 1 each Documented by: Clonidine HCl (Catapres) 0.3 mg PO Q8HR [facility] Last Admin: 09/12/18 10:11 Dose: Not Given Documented by: Dicyclomine HCl (Bentyl) 10 mg PO Q6HR PRN PRN Reason: Pain , Severe (7-10) Last Admin: 09/11/18 22:05 Dose: 10 mg Documented by: Furosemide (Lasix) 80 mg PO QDAY [facility] Last Admin: 09/12/18 10:15 Dose: 80 mg Documented by: Hydralazine HCl (Apresoline) 100 mg PO TID [facility] Last Admin: 09/12/18 10:11 Dose: 100 mg Documented by: Hydroxychloroquine Sulfate (Plaquenil) 200 mg PO QDAY [facility] Last Admin: 09/12/18 10:15 Dose: 200 mg Documented by: Levetiracetam (Keppra) 1,000 mg PO BID [facility] Last Admin: 09/12/18 10:16 Dose: 1,000 mg Documented by: Lorazepam (Ativan) 2 mg IM Q4HR PRN PRN Reason: Agitation Last Admin: 09/12/18 10:38 Dose: 2 mg Documented by: Losartan Potassium (Cozaar) 100 mg PO QDAY [facility] Last Admin: 09/12/18 10:15 Dose: 100 mg Documented by: Miscellaneous Medication (Prednisone [Prednisone 10 Mg (6-Day Pack, 21 Tabs)]) 10 mg PO .TAPER [facility] Ondansetron HCl (Zofran Odt) 4 mg PO Q6HR PRN PRN Reason: Nausea Last Admin: 09/12/18 11:03 Dose: 4 mg Documented by: Phenytoin (Dilantin) 100 mg PO TID [facility] Last Admin: 09/12/18 10:11 Dose: 100 mg Documented by: Sertraline HCl (Zoloft) 25 mg PO DAILY [facility] Last Admin: 09/12/18 10:15 Dose: 25 mg Documented by: Review of Systems Constitutional: no weight loss, no weight gain, no fever, no chills Ears, nose, mouth and throat: no ear pain, no ear discharge, no tinnitis, no decreased hearing, no nose pain, no nasal congestion, no nasal discharge Breasts: no change in shape, no swelling, no mass Cardiovascular: no chest pain, no orthopnea, no palpitations Respiratory: shortness of breath, no cough, no cough with sputum Gastrointestinal: no nausea, no vomiting, no diarrhea, no constipation, no change in bowel habits Genitourinary Female: no pelvic pain, no flank pain, no menorrhagia, no dysuria, no urinary frequency, no urgency Rectal: no pain, no incontinence, no bleeding Musculoskeletal: no neck stiffness, no neck pain, no shooting arm pain, no arm numbness/tingling, no low back pain, no shooting leg pain Integumentary: no rash, no pruritis, no redness, no sores, no wounds Neurological: no head injury, no transient paralysis, no paralysis, no weakness, no parathesias, no numbness, no tingling Psychiatric: no anxiety, no memory loss, no change in sleep habits, no sleep disturbances, no insomnia, no change in appetite Endocrine: no cold intolerance, no heat intolerance, no polyphagia, no excessive thirst, no polydipsia, no polyuria Hematologic/Lymphatic: no easy bruising, no easy bleeding, no lymphadenopathy Allergic/Immunologic: no urticaria, no allergic rhinitis, no wheezing, no anaphylaxis, no angioedema Exam - Constitutional Vitals: Temp Pulse Resp BP Pulse Ox 100.3 F H 117 H 20 172/103 100 09/12/18 12:25 09/12/18 13:15 09/12/18 12:25 09/12/18 13:15 09/12/18 11:50 General appearance: Present: mild distress - EENT Eyes: Present: PERRL ENT: hearing intact, clear oral mucosa - Neck Neck: Present: supple, normal ROM - Respiratory Respiratory effort: normal Respiratory: bilateral: CTA - Cardiovascular Heart Sounds: Present: S1 & S2. Absent: rub, click - Extremities Extremities: pulses symmetrical, No edema Peripheral Pulses: within normal limits - Abdominal General gastrointestinal: Present: soft, non-tender, non-distended, normal bowel sounds Female genitourinary: Present: normal - Integumentary Integumentary: Present: clear, warm, dry - Musculoskeletal Musculoskeletal: gait normal, strength equal bilaterally - Psychiatric Psychiatric: appropriate mood/affect, intact judgment & insight - Neurologic Neurologic: CNII-XII intact, moves all extremities Results - Labs CBC & Chem 7: 09/10/18 06:56 09/12/18 12:29 Labs: Abnormal lab results 09/12/18 Range/Units 12:29 Sodium 131 L (137-145) mmol/L Chloride 89.5 L (98-107) mmol/L Carbon Dioxide 19 L (22-30) mmol/L BUN 68 H (7-17) mg/dL Creatinine 13.9 H (0.7-1.2) mg/dL Phosphorus 6.10 H (2.5-4.5) mg/dL Assessment and Plan - Patient Problems (1) Respiratory failure Current Visit: Yes Status: Acute Qualifiers: Chronicity: acute Respiratory failure complication: hypoxia Qualified Code(s): J96.01 - Acute respiratory failure with hypoxia Plan to address problem: Supplemental oxygen, nebulizer therapy, NIPPV as clinically indicated, urgent dialysis,pulse oximetry, chest x ray. (2) Cocaine dependence Current Visit: Yes Status: Acute Qualifiers: Substance use status: uncomplicated Qualified Code(s): F14.20 - Cocaine dependence, uncomplicated Plan to address problem: Supportive care, (3) UTI (urinary tract infection) Current Visit: Yes Status: Acute Qualifiers: Encounter type: initial encounter Plan to address problem: IV antibiotic therapy, cbc, urinalysis, (4) ESRD (end stage renal disease) Current Visit: Yes Status: Acute Plan to address problem: Nephrology consulted in ED for urgent dialysis. (5) Suicidal ideation Current Visit: Yes Status: Acute Plan to address problem: Psychiatry consulted, [address] (6) Acidosis Current Visit: Yes Status: Acute Plan to address problem: Dialysis as per nephrology team, repeat bmp. (7) DVT prophylaxis Current Visit: Yes Status: Acute Plan to address problem: SCD to ble while in bed.
[2018-09-12] MEDS ORDERED: TYLENOL PO PRN (13:27)
[2018-09-12] MEDS ORDERED: SODIUM CHLORIDE FLUSH SYRINGE 10 ML IV PRN (13:27)
[2018-09-12] MEDS: BENTYL PO PRN (15:00)
[2018-09-12] MEDS ORDERED: NACL 0.9% 1000 ML 1,000 ML ONE (16:46)
[2018-09-12] MEDS: ZOFRAN IV PRN (18:39)
[2018-09-12] MEDS: SODIUM CHLORIDE FLUSH SYRINGE 10 ML IV SCH (22:06)
[2018-09-13] MEDS: BENTYL PO PRN ×2 (00:35→13:19)
[2018-09-13] MEDS: ATIVAN IM PRN (00:35)
[2018-09-13] MEDS: CATAPRES PO SCH ×3 (06:25→21:17)
[2018-09-13 09:16] LABS: Calcium 8.6 mg/dL (8.4-10.2)
[2018-09-13] MEDS: KEPPRA PO SCH ×2 (10:16→21:17)
[2018-09-13] MEDS: LASIX PO SCH (10:16)
[2018-09-13] MEDS: COZAAR PO SCH (10:17)
[2018-09-13] MEDS: ZOLOFT PO SCH (10:17)
[2018-09-13] MEDS: SODIUM CHLORIDE FLUSH SYRINGE 10 ML IV SCH ×2 (10:17→21:17)
[2018-09-13] MEDS: PLAQUENIL PO SCH (10:17)
[2018-09-13] MEDS: DILANTIN PO SCH ×3 (10:26→20:32)
--- NOTE | 2018-09-13 10:37 | Progress Note ---
Assessment and Plan - Patient Problems (1) Respiratory failure Current Visit: Yes Status: Acute Qualifiers: Chronicity: acute Respiratory failure complication: hypoxia Qualified Code(s): J96.01 - Acute respiratory failure with hypoxia Plan to address problem: improved after HD (2) Cocaine dependence Current Visit: Yes Status: Acute Qualifiers: Substance use status: uncomplicated Qualified Code(s): F14.20 - Cocaine dependence, uncomplicated Plan to address problem: Supportive care, (3) UTI (urinary tract infection) Current Visit: Yes Status: Acute Qualifiers: Encounter type: initial encounter Plan to address problem: IV antibiotic therapy, cbc, urinalysis, (4) ESRD (end stage renal disease) Current Visit: Yes Status: Acute Plan to address problem: Had urgent dialysis. (5) Suicidal ideation Current Visit: Yes Status: Acute Plan to address problem: Psychiatry consulted, [address] (6) Acidosis Current Visit: Yes Status: Acute Plan to address problem: Dialysis as per nephrology team, repeat bmp. ( 7)RUQ pain R/o Cholelithiasis RUQ sonogram (8) DVT prophylaxis Current Visit: Yes Status: Acute Plan to address problem: SCD to ble while in bed. Subjective Date of service: 09/13/18 Principal diagnosis: Volume overload Interval history: SOB better C/o RUQ pain Objective - Constitutional Vitals: Vital Signs - 12hr 09/12/18 09/13/18 09/13/18 23:54 04:59 06:25 Temperature 99.3 F 98.3 F Pulse Rate 93 H 83 83 Respiratory 20 20 Rate Blood Pressure 136/93 121/84 121/84 O2 Sat by Pulse 100 98 Oximetry 09/13/18 09/13/18 07:57 10:17 Temperature Pulse Rate 74 Respiratory Rate Blood Pressure 134/94 O2 Sat by Pulse 99 Oximetry General appearance: Present: no acute distress, well-nourished - EENT Eyes: PERRL, EOM intact ENT: hearing intact, clear oral mucosa Ears: bilateral: normal - Neck Neck: supple, normal ROM - Respiratory Respiratory effort: normal Respiratory: bilateral: CTA - Breasts Breasts: normal - Cardiovascular Rhythm: regular Heart Sounds: Present: S1 & S2. Absent: gallop, rub Extremities: pulses intact, No edema, normal color, Full ROM - Gastrointestinal General gastrointestinal: Present: soft, non-tender, non-distended, normal bowel sounds - Genitourinary Female genitourinary: normal - Integumentary Integumentary: clear, warm, dry - Musculoskeletal Musculoskeletal: 1, strength equal bilaterally - Neurologic Neurologic: moves all extremities - Psychiatric Psychiatric: memory intact, appropriate mood/affect, intact judgment & insight - Labs CBC & Chem 7: 09/10/18 06:56 09/13/18 08:34 Labs: Abnormal lab results 09/12/18 09/13/18 Range/Units 12:29 08:34 Sodium 131 L (137-145) mmol/L Chloride 89.5 L 95.2 L (98-107) mmol/L Carbon Dioxide 19 L (22-30) mmol/L BUN 68 H 21 H (7-17) mg/dL Creatinine 13.9 H 6.8 H D (0.7-1.2) mg/dL Glucose 113 H (65-100) mg/dL Phosphorus 6.10 H (2.5-4.5) mg/dL
--- NOTE | 2018-09-13 11:12 | Progress Note ---
Assessment and Plan Impression * End-stage renal disease on maintenance hemodialysis * Accelerated hypertension * Seizure disorder * Suicidal ideation * Noncompliance * Depression * Anemia secondary to ESRD * Fluid overload Recommendations * uneventful hemodialysis yesterday * CHF resolved * Blood pressure is under much better control * Scheduled. Patient for hemodialysis for tomorrow. keep her on MWF schedule for now * Adjust diet and meds for ESRD state * No IV, BP or venipuncture in her access arm * Binders with meals * Continue antiseizure meds * Avoid nephrotoxins Subjective Date of service: 09/13/18 Principal diagnosis: Volume overload Interval history: patient is comfortable today. Shortness of breath is better. Uneventful hemodialysis yesterday Objective - Vital Signs Vital signs: Vital Signs - 12hr 09/12/18 09/13/18 09/13/18 23:54 04:59 06:25 Temperature 99.3 F 98.3 F Pulse Rate 93 H 83 83 Respiratory 20 20 Rate Blood Pressure 136/93 121/84 121/84 O2 Sat by Pulse 100 98 Oximetry 09/13/18 09/13/18 07:57 10:17 Temperature Pulse Rate 74 Respiratory Rate Blood Pressure 134/94 O2 Sat by Pulse 99 Oximetry - General Appearance General appearance: well-developed, well-nourished, appears stated age EENT: PERRL, mucous membranes moist Neck: no JVD, no thyromegaly, no carotid bruit, supple Respiratory: Present: Clear to Ascultation Cardiology: regular, normal heart rate, S1S2, no murmurs Gastrointestinal: normal, normoactive bowel sounds Integumentary: no rash, other (AV fistula right upper arm. Good bruit and thrill) - Lab 09/10/18 06:56 09/13/18 08:34 Most recent lab results Calcium 8.6 mg/dL (8.4-10.2) 09/13/18 08:34 Phosphorus 6.10 mg/dL (2.5-4.5) H 09/12/18 12:29 Medications & Allergies - Medications Allergies/Adverse Reactions: Allergies acetaminophen [From Percocet] Allergy (Verified 04/21/18 08:28) Itching lisinopril Allergy (Verified 04/21/18 08:28) Swelling metoprolol Allergy (Verified 04/21/18 08:28) Unknown oxycodone [From Percocet] Allergy (Verified 04/21/18 08:28) Itching oxycodone HCl [From Percocet] Adverse Reaction (Verified 04/21/18 08:28) Unknown Home Medications: Home Medications Medication Instructions Recorded Confirmed Last Taken Type Furosemide [Lasix] 80 mg PO QDAY #30 tablet 04/23/18 09/11/18 Unknown Rx Albuterol Sulfate [Proair 2 puff IH Q4H PRN #1 pump 07/15/18 09/12/18 Unknown Rx Respiclick] Hydroxychloroquine [Plaquenil] 200 mg PO QDAY #30 tablet 07/24/18 09/11/18 Unknown Rx Clonidine HCl [Catapres] 0.3 mg PO TID 08/11/18 09/11/18 Unknown History Labetalol [Normodyne TAB] 200 mg PO TID 08/11/18 09/12/18 Unknown History Losartan [Cozaar] 100 mg PO QDAY 08/11/18 09/11/18 Unknown History Sertraline [Zoloft] 25 mg PO QDAY 08/11/18 09/11/18 Unknown History hydrALAZINE [Apresoline TAB] 100 mg PO TID 08/11/18 09/11/18 Unknown History HYDROcodone/APAP 10-325 [[place] 1 each PO Q4HR PRN #7 tablet 08/14/18 09/12/18 Unknown Rx 10-325 mg TAB] Phenytoin [Dilantin] 100 mg PO TID #90 capsule.er 08/19/18 09/11/18 Unknown Rx levETIRAcetam [Keppra TAB] 1,000 mg PO BID #60 tablet 08/19/18 09/12/18 Unknown Rx Amoxicillin/Potassium Clav 1 each PO BID #10 tablet 09/08/18 09/12/18 Unknown Rx [Augmentin 500-125 Tablet] Prednisone [predniSONE 10 mg 10 mg PO .TAPER #1 tab.ds.pk 09/08/18 09/11/18 Unknown Rx (6-Day Pack, 21 Tabs)] Dicyclomine [Bentyl] 10 mg PO QID PRN #20 capsule 09/10/18 Unknown Rx Ondansetron [Zofran Odt] 4 mg PO Q8HR PRN #20 tab.rapdis 09/10/18 Unknown Rx Active Medications: Generic Name Dose Route Start Last Admin Trade Name Freq PRN Reason Stop Dose Admin Acetaminophen 650 mg 09/12/18 13:27 Tylenol PO Q4H PRN Pain MILD(1-3)/Fever >100.5/WOLFF Albuterol 2.5 mg 09/10/18 12:01 Proventil IH Q4HRT PRN Shortness Of Breath Clonidine HCl 0.3 mg 09/10/18 14:00 09/13/18 06:25 Catapres PO 0.3 mg Q8HR FERNANDO Administration Dicyclomine HCl 10 mg 09/10/18 10:36 09/13/18 00:35 Bentyl PO 10 mg Q6HR PRN Administration Pain , Severe (7-10) Furosemide 80 mg 09/10/18 12:00 09/13/18 10:16 Lasix PO 80 mg QDAY FERNANDO Administration Hydralazine HCl 100 mg 09/10/18 14:00 09/12/18 20:25 Apresoline PO Not Given TID FERNANDO Hydroxychloroquine Sulfate 200 mg 09/10/18 11:50 09/13/18 10:17 Plaquenil PO 200 mg QDAY FERNANDO Administration Levetiracetam 1,000 mg 09/10/18 11:00 09/13/18 10:16 Keppra PO 1,000 mg BID FERNANDO Administration Lorazepam 2 mg 09/10/18 10:29 09/13/18 00:35 Ativan IM 2 mg Q4HR PRN Administration Agitation Losartan Potassium 100 mg 09/10/18 12:00 09/13/18 10:17 Cozaar PO 100 mg QDAY FERNANDO Administration Miscellaneous Medication 10 mg 09/10/18 10:30 Prednisone [Prednisone 10 Mg (6-Day Pack, 21 Tabs)] PO .TAPER FERNANDO Ondansetron HCl 4 mg 09/10/18 10:36 09/12/18 11:03 Zofran Odt PO 4 mg Q6HR PRN Administration Nausea Ondansetron HCl 4 mg 09/12/18 13:27 09/12/18 18:39 Zofran IV 4 mg Q8H PRN Administration Nausea And Vomiting Phenytoin 100 mg 09/10/18 14:00 09/13/18 10:26 Dilantin PO 100 mg TID FERNANDO Administration Sertraline HCl 25 mg 09/11/18 12:00 09/13/18 10:17 Zoloft PO 25 mg DAILY FERNANDO Administration Sodium Chloride 10 ml 09/12/18 22:00 09/13/18 10:17 Sodium Chloride Flush Syringe 10 Ml IV 10 ml BID FERNANDO Administration Sodium Chloride 10 ml 09/12/18 13:27 Sodium Chloride Flush Syringe 10 Ml IV PRN PRN LINE FLUSH
[2018-09-13] MEDS: APRESOLINE PO SCH ×3 (13:55→20:32)
[2018-09-13] MEDS ORDERED: ULTRAM PO PRN (15:08)
--- NOTE | 2018-09-13 18:32 | Progress Note ---
Subjective - Reason for Consult Consult date: 09/13/18 Reason for consult: follow up - Chief Complaint Chief complaint: She did not want to be interviewed. Mental Status Exam - Vital signs Last Vital Signs Temp 98.5 F 09/13/18 17:24 Pulse 82 09/13/18 17:24 Resp 18 09/13/18 17:24 BP 129/78 09/13/18 17:24 Pulse Ox 96 09/13/18 17:24 - Exam Narrative exam: unable to assess Assessment and Plan Impression: Hx of depression. Substance Use DO (cocaine). refused interview DDx: Somatic Symptom DO Recommendation/Plan: Continue 1013 and gather collateral information. -Zoloft 25 mg PO daily for depression. Dispo: Once collateral information is gathered, proper dispo will be determined. will staff with Dr. Vanessa Dent.
[2018-09-13] MEDS: DILAUDID IM PRN (21:13)
[2018-09-14] MEDS: ATIVAN IM PRN (03:35)
[2018-09-14] MEDS: DILAUDID IM PRN ×3 (06:09→20:11)
[2018-09-14] MEDS: CATAPRES PO SCH ×3 (06:12→21:31)
[2018-09-14 07:19] LABS: Calcium 8.9 mg/dL (8.4-10.2)
--- NOTE | 2018-09-14 08:11 | Progress Note ---
Assessment and Plan Impression * End-stage renal disease on maintenance hemodialysis * Accelerated hypertension * Seizure disorder * Suicidal ideation * Noncompliance * Depression * Anemia secondary to ESRD * Fluid overload Recommendations * Patient is scheduled for hemodialysis for today. Continue dialysis on MWF schedule for now. Her outpatient basis however TTS * CHF resolved * Blood pressure is under much better control * Adjust diet and meds for ESRD state * No IV, BP or venipuncture in her access arm * Binders with meals * Continue antiseizure meds * Avoid nephrotoxins Subjective Date of service: 09/14/18 Principal diagnosis: Volume overload Interval history: Patient is currently comfortable. Denies any shortness of breath. No nausea or vomiting. Objective - Vital Signs Vital signs: Vital Signs - 12hr 09/13/18 09/13/18 09/13/18 21:17 22:00 23:32 Temperature 98.2 F Pulse Rate 82 82 Respiratory 18 Rate Blood Pressure 130/79 121/78 O2 Sat by Pulse 98 100 Oximetry 09/14/18 09/14/18 04:20 06:12 Temperature 97.7 F Pulse Rate 73 82 Respiratory 20 Rate Blood Pressure 122/85 121/78 O2 Sat by Pulse 100 Oximetry - General Appearance General appearance: well-developed, well-nourished, appears stated age EENT: PERRL, mucous membranes moist Neck: no JVD, no thyromegaly, no carotid bruit, supple Respiratory: Present: Clear to Ascultation Cardiology: regular, normal heart rate, S1S2, no murmurs Gastrointestinal: normal, normoactive bowel sounds Integumentary: other (AV fistula in her right upper arm. Good bruit and thrill.) - Lab 09/10/18 06:56 09/14/18 06:40 Most recent lab results Calcium 8.9 mg/dL (8.4-10.2) 09/14/18 06:40 Phosphorus 6.10 mg/dL (2.5-4.5) H 09/12/18 12:29 Medications & Allergies - Medications Allergies/Adverse Reactions: Allergies acetaminophen [From Percocet] Allergy (Verified 04/21/18 08:28) Itching lisinopril Allergy (Verified 04/21/18 08:28) Swelling metoprolol Allergy (Verified 04/21/18 08:28) Unknown oxycodone [From Percocet] Allergy (Verified 04/21/18 08:28) Itching oxycodone HCl [From Percocet] Adverse Reaction (Verified 04/21/18 08:28) Unknown Home Medications: Home Medications Medication Instructions Recorded Confirmed Last Taken Type Furosemide [Lasix] 80 mg PO QDAY #30 tablet 04/23/18 09/11/18 Unknown Rx Albuterol Sulfate [Proair 2 puff IH Q4H PRN #1 pump 07/15/18 09/12/18 Unknown Rx Respiclick] Hydroxychloroquine [Plaquenil] 200 mg PO QDAY #30 tablet 07/24/18 09/11/18 Unknown Rx Clonidine HCl [Catapres] 0.3 mg PO TID 08/11/18 09/11/18 Unknown History Labetalol [Normodyne TAB] 200 mg PO TID 08/11/18 09/12/18 Unknown History Losartan [Cozaar] 100 mg PO QDAY 08/11/18 09/11/18 Unknown History Sertraline [Zoloft] 25 mg PO QDAY 08/11/18 09/11/18 Unknown History hydrALAZINE [Apresoline TAB] 100 mg PO TID 08/11/18 09/11/18 Unknown History HYDROcodone/APAP 10-325 [[place] 1 each PO Q4HR PRN #7 tablet 08/14/18 09/12/18 Unknown Rx 10-325 mg TAB] Phenytoin [Dilantin] 100 mg PO TID #90 capsule.er 08/19/18 09/11/18 Unknown Rx levETIRAcetam [Keppra TAB] 1,000 mg PO BID #60 tablet 08/19/18 09/12/18 Unknown Rx Amoxicillin/Potassium Clav 1 each PO BID #10 tablet 09/08/18 09/12/18 Unknown Rx [Augmentin 500-125 Tablet] Prednisone [predniSONE 10 mg 10 mg PO .TAPER #1 tab.ds.pk 09/08/18 09/11/18 Unknown Rx (6-Day Pack, 21 Tabs)] Dicyclomine [Bentyl] 10 mg PO QID PRN #20 capsule 09/10/18 Unknown Rx Ondansetron [Zofran Odt] 4 mg PO Q8HR PRN #20 tab.rapdis 09/10/18 Unknown Rx Active Medications: Generic Name Dose Route Start Last Admin Trade Name Freq PRN Reason Stop Dose Admin Acetaminophen 650 mg 09/12/18 13:27 Tylenol PO Q4H PRN Pain MILD(1-3)/Fever >100.5/WOLFF Albuterol 2.5 mg 09/10/18 12:01 Proventil IH Q4HRT PRN Shortness Of Breath Clonidine HCl 0.3 mg 09/10/18 14:00 09/14/18 06:12 Catapres PO 0.3 mg Q8HR FERNANDO Administration Dicyclomine HCl 10 mg 09/10/18 10:36 09/13/18 13:19 Bentyl PO 10 mg Q6HR PRN Administration Pain , Severe (7-10) Furosemide 80 mg 09/10/18 12:00 09/13/18 10:16 Lasix PO 80 mg QDAY FERNANDO Administration Hydralazine HCl 100 mg 09/10/18 14:00 09/13/18 20:32 Apresoline PO 100 mg TID FERNANDO Administration Hydromorphone HCl 1 mg 09/13/18 15:32 09/14/18 06:09 Dilaudid IM 1 mg Q3H PRN Administration Pain , Severe (7-10) Hydroxychloroquine Sulfate 200 mg 09/10/18 11:50 09/13/18 10:17 Plaquenil PO 200 mg QDAY FERNANDO Administration Levetiracetam 1,000 mg 09/10/18 11:00 09/13/18 21:17 Keppra PO 1,000 mg BID FERNANDO Administration Lorazepam 2 mg 09/10/18 10:29 09/14/18 03:35 Ativan IM 2 mg Q4HR PRN Administration Agitation Losartan Potassium 100 mg 09/10/18 12:00 09/13/18 10:17 Cozaar PO 100 mg QDAY FERNANDO Administration Ondansetron HCl 4 mg 09/10/18 10:36 09/12/18 11:03 Zofran Odt PO 4 mg Q6HR PRN Administration Nausea Ondansetron HCl 4 mg 09/12/18 13:27 09/12/18 18:39 Zofran IV 4 mg Q8H PRN Administration Nausea And Vomiting Phenytoin 100 mg 09/10/18 14:00 09/13/18 20:32 Dilantin PO 100 mg TID FERNANDO Administration Sertraline HCl 25 mg 09/11/18 12:00 09/13/18 10:17 Zoloft PO 25 mg DAILY FERNANDO Administration Sodium Chloride 10 ml 09/12/18 22:00 09/13/18 21:17 Sodium Chloride Flush Syringe 10 Ml IV Not Given BID FERNANDO Sodium Chloride 10 ml 09/12/18 13:27 Sodium Chloride Flush Syringe 10 Ml IV PRN PRN LINE FLUSH
--- NOTE | 2018-09-14 08:37 | Progress Note ---
Assessment and Plan Assessment and plan: 28 YO Female with HTN, Nicotine Dependence, Lupus, OA, Cocaine Dependence, Seizure Disorder, Asthma, Migraine Headache, ESRD on HD (T,R,Sa) presents to ED for evaluation. Pt has been boarding in ED over the past 3 days for Suicide Ideation. [address] Pt states that she has experienced shortness of breath, generalized body pain over the past 3 days with worsening symptoms over the same time frame. Pt initially refused dialysis. Pt seen and reevaluated in ED and found to have ESRD, UTI, Respiratory Failure secondary to fluid overload. Nephrology consulted in ED for urgent dialysis. Pt admitted to medical floor. Pt denies fever, chills, trauma, Palpitations, NVD, Productive cough or recent ill contacts. CT abdomen and pelvis reveals: moderate left pleural effusion and some gallstones Acute on chronic Respiratory Failure with Hypoxa secondary ESRD Asthma with mild exacerbation ESRD Hypertension Cocaine use disorder Acute Cystitis- NO CULTURE OBTAINED Suicidal ideation currently 1013 precaution Chronic Pain syndrome-RUQ Acute Pain Non compliance Gallstones with no evidence of cholecystitis or cholelithiasis Metabolic Acidosis Depression Volume overload Seizure disorder Plan Continue supportive care Counselling on compliance 15 mins, pt verbalized understanding Continue HD Awaiting Pysch eval for disposition Continue antisezure meds COMPLETED ABX PENDING DISPOSITION ANTICIPATE DISCHARGE DVT/GI PROPHY Patient is medical stable for discharge once appropriate disposition is obtained History Interval history: Patient is seen today for: Shortness of breath Seen and examined at bedside; 24hour events reviewed; nursing staff ; no adverse overnight events reported to me; Denies any chest pain, nausea, vomiting, diarrhea. Otherwise patient reports some improvement in breathing status. Tolerating dialysis well. No fever noted blood pressure controlled Hospitalist Physical - Physical exam Narrative exam: VITAL SIGNS: Reviewed. GENERAL: The patient chronically ill appearing. Vital signs as documented. HEAD: No signs of head trauma. EYES: Pupils are equal. Extraocular motions intact. EARS: Hearing grossly intact. MOUTH: Oropharynx is normal. NECK: No adenopathy, no JVD. CHEST: Chest with clear breath sounds bilaterally. No wheezes, rales, or rhonchi. CARDIAC: Regular rate and rhythm. S1 and S2, without murmurs, gallops, or rubs. VASCULAR: No Edema. Peripheral pulses normal and equal in all extremities. ABDOMEN: Soft, without detectable tenderness. No sign of distention. No rebound or guarding, and no masses palpated. Bowel Sounds normal. MUSCULOSKELETAL: Good range of motion of all major joints. Extremities without clubbing, cyanosis or edema. NEUROLOGIC EXAM: Alert and oriented x 3. No focal sensory or strength deficits. Speech normal. Follows commands. PSYCHIATRIC: Mood normal. SKIN: Multiple well-healed punctate lesions scattered - Constitutional Vitals: Temp Pulse Resp BP Pulse Ox 97.7 F 82 20 121/78 100 09/14/18 04:20 09/14/18 06:12 09/14/18 04:20 09/14/18 06:12 09/14/18 04:20 General appearance: Present: no acute distress, well-nourished Results - Labs CBC & Chem 7: 09/10/18 06:56 09/14/18 06:40 Labs: Laboratory Last Values WBC 5.1 K/mm3 (4.5-11.0) 09/10/18 06:56 RBC 4.30 M/mm3 (3.65-5.03) 09/10/18 06:56 Hgb 12.1 gm/dl (10.1-14.3) 09/10/18 06:56 Hct 37.6 % (30.3-42.9) 09/10/18 06:56 MCV 87 fl (79-97) 09/10/18 06:56 MCH 28 pg (28-32) 09/10/18 06:56 MCHC 32 % (30-34) 09/10/18 06:56 RDW 19.5 % (13.2-15.2) H 09/10/18 06:56 Plt Count 190 K/mm3 (140-440) 09/10/18 06:56 Lymph % (Auto) 16.4 % (13.4-35.0) 09/10/18 06:56 [place] % (Auto) 12.6 % (0.0-7.3) H 09/10/18 06:56 Eos % (Auto) 1.5 % (0.0-4.3) 09/10/18 06:56 Baso % (Auto) 0.2 % (0.0-1.8) 09/10/18 06:56 Lymph # 0.8 K/mm3 (1.2-5.4) L 09/10/18 06:56 [place] # 0.6 K/mm3 (0.0-0.8) 09/10/18 06:56 Eos # 0.1 K/mm3 (0.0-0.4) 09/10/18 06:56 Baso # 0.0 K/mm3 (0.0-0.1) 09/10/18 06:56 Seg Neutrophils % 69.3 % (40.0-70.0) 09/10/18 06:56 Seg Neutrophils # 3.5 K/mm3 (1.8-7.7) 09/10/18 06:56 Sodium 136 mmol/L (137-145) L 09/14/18 06:40 Potassium 4.3 mmol/L (3.6-5.0) 09/14/18 06:40 Chloride 94.4 mmol/L (98-107) L 09/14/18 06:40 Carbon Dioxide 24 mmol/L (22-30) 09/14/18 06:40 Anion Gap 22 mmol/L 09/14/18 06:40 BUN 28 mg/dL (7-17) H 09/14/18 06:40 Creatinine 9.0 mg/dL (0.7-1.2) H 09/14/18 06:40 Estimated GFR 6 ml/min 09/14/18 06:40 BUN/Creatinine Ratio 3 % 09/14/18 06:40 Glucose 83 mg/dL (65-100) 09/14/18 06:40 Calcium 8.9 mg/dL (8.4-10.2) 09/14/18 06:40 Phosphorus 6.10 mg/dL (2.5-4.5) H 09/12/18 12:29 Total Bilirubin 0.30 mg/dL (0.1-1.2) 09/10/18 06:57 AST 19 units/L (5-40) 09/10/18 06:57 ALT 6 units/L (7-56) L 09/10/18 06:57 Alkaline Phosphatase 104 units/L (35-129) 09/10/18 06:57 Total Creatine Kinase 123 units/L (30-135) 09/12/18 12:29 CK-MB (CK-2) 1.2 ng/mL (0.0-4.0) 09/12/18 12:29 CK-MB (CK-2) Rel Index 0.9 (0-4) 09/12/18 12:29 Total Protein 7.8 g/dL (6.3-8.2) 09/10/18 06:57 Albumin 3.4 g/dL (3.9-5) L 09/10/18 06:57 Albumin/Globulin Ratio 0.8 % 09/10/18 06:57 Lipase 126 units/L (13-60) H 09/10/18 06:57 HCG, Qual Negative (Negative) 09/10/18 06:42 Urine Color Yellow (Yellow) 09/10/18 04:10 Urine Turbidity Clear (Clear) 09/10/18 04:10 Urine pH 8.0 (5.0-7.0) H 09/10/18 04:10 Ur Specific [place] 1.009 (1.003-1.030) 09/10/18 04:10 Urine Protein 100 mg/dl mg/dL (Negative) 09/10/18 04:10 Urine Glucose (UA) Neg mg/dL (Negative) 09/10/18 04:10 Urine Ketones Neg mg/dL (Negative) 09/10/18 04:10 Urine Blood Sm (Negative) 09/10/18 04:10 Urine Nitrite Neg (Negative) 09/10/18 04:10 Urine Bilirubin Neg (Negative) 09/10/18 04:10 Urine Urobilinogen < 2.0 mg/dL (<2.0) 09/10/18 04:10 Ur Leukocyte Esterase Tr (Negative) 09/10/18 04:10 Urine WBC (Auto) 12.0 /HPF (0.0-6.0) H 09/10/18 04:10 Urine RBC (Auto) 8.0 /HPF (0.0-6.0) 09/10/18 04:10 U Epithel Cells (Auto) 3.0 /HPF (0-13.0) 09/10/18 04:10 Urine Opiates Screen Presumptive negative 09/11/18 04:09 Urine Methadone Screen Presumptive negative 09/11/18 04:09 Ur Barbiturates Screen Presumptive negative 09/11/18 04:09 Ur Phencyclidine Scrn Presumptive negative 09/11/18 04:09 Ur Amphetamines Screen Presumptive negative 09/11/18 04:09 U Benzodiazepines Scrn Presumptive negative 09/11/18 04:09 Urine Cocaine Screen Presumptive positive 09/11/18 04:09 U Marijuana (THC) Screen Presumptive negative 09/11/18 04:09 Drugs of Abuse Note Disclamer 09/11/18 04:09
[2018-09-14] MEDS: APRESOLINE PO SCH ×3 (09:15→20:07)
[2018-09-14] MEDS: KEPPRA PO SCH ×2 (09:16→21:31)
[2018-09-14] MEDS: DILANTIN PO SCH ×3 (09:16→20:07)
[2018-09-14] MEDS: PLAQUENIL PO SCH (09:16)
[2018-09-14] MEDS: ZOLOFT PO SCH (09:17)
--- NOTE | 2018-09-14 10:28 | Discharge Summary ---
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 Pt has been boarding in ED over the past 3 days for Suicide Ideation. [address] Pt states that she has experienced shortness of breath, generalized body pain over the past 3 days with worsening symptoms over the same time frame. Pt initially refused dialysis. Pt seen and reevaluated in ED and found to have ESRD, UTI, Respiratory Failure secondary to fluid overload. Nephrology consulted in ED for urgent dialysis. Pt admitted to medical floor. Pt denies fever, chills, trauma, Palpitations, NVD, Productive cough or recent ill contacts. Patient continued dialysis extensive counseling was provided to the patient patient was seen by psychiatry and further discussion with grandmother resulted in 1013 being discontinued. The patient reported flank pain which initially she said has been going on for about 2 weeks but subsequently going on for a year HIDA scan was done which was unremarkable. A review of the [facility] aware of the patient has been unable to 20 narcotics prescribed field from multiple physicians. This was advised to the grandmother the patient and recommended that he she follows up with a pain physician from primary care doctor's referral. Acute on chronic Respiratory Failure with Hypoxia secondary ESRD Asthma with mild exacerbation ESRD Hypertension Cocaine use disorder Acute Cystitis- NO CULTURE OBTAINED Suicidal ideation currently 1013 precaution Chronic Pain syndrome-RUQ Acute Pain Non compliance Metabolic Acidosis Depression Volume overload Seizure disorder Disposition: TO HOME OR SELFCARE Time spent for discharge: 35 mins Core Measure Documentation - Palliative Care Palliative Care/ Comfort Measures: Not Applicable - Core Measures Any of the following diagnoses?: none Exam - Physical Exam Narrative exam: VITAL SIGNS: Reviewed. GENERAL: The patient chronically ill appearing. Vital signs as documented. HEAD: No signs of head trauma. EYES: Pupils are equal. Extraocular motions intact. EARS: Hearing grossly intact. MOUTH: Oropharynx is normal. NECK: No adenopathy, no JVD. CHEST: Chest with clear breath sounds bilaterally. No wheezes, rales, or rhonchi. CARDIAC: Regular rate and rhythm. S1 and S2, without murmurs, gallops, or rubs. VASCULAR: No Edema. Peripheral pulses normal and equal in all extremities. ABDOMEN: Soft, without detectable tenderness. No sign of distention. No rebound or guarding, and no masses palpated. Bowel Sounds normal. MUSCULOSKELETAL: Good range of motion of all major joints. Extremities without clubbing, cyanosis or edema. NEUROLOGIC EXAM: Alert and oriented x 3. No focal sensory or strength deficits. Speech normal. Follows commands. PSYCHIATRIC: Mood normal. SKIN: Multiple well-healed punctate lesions scattered - Constitutional Vitals: Temp Pulse Resp BP Pulse Ox 97.7 F 82 20 121/78 100 09/14/18 04:20 09/14/18 06:12 09/14/18 04:20 09/14/18 06:12 09/14/18 04:20 Plan Activity: advance as tolerated, fall precautions Diet: diabetic, renal Special Instructions: record blood sugar diary Follow up with: SREEDHAR MENJIVAR MD [Staff Physician] - 3-5 Days PRIMARY CAREMD [Primary Care Provider] - 3-5 Days GABRIEL BULLARD MD [Staff Physician] - 3-5 Days Prescriptions: Dicyclomine [Bentyl] 10 mg PO QID PRN #20 capsule PRN Reason: Pain Ondansetron [Zofran Odt] 4 mg PO Q8HR PRN #20 tab.rapdis PRN Reason: Nausea
--- NOTE | 2018-09-14 10:39 | Progress Note ---
Addendum entered and electronically signed by DESHAWN FLORES NP 09/15/18 14:33: Correction: The grandmother's name is Paris Ricks. Original Note: Subjective - Reason for Consult Consult date: 09/14/18 Reason for consult: Psychiatry Follow-up - Chief Complaint Chief complaint: "I feel better today" 28 y.o. AA female who presented to the ER for generalized body pain. The patient endorsed SI's to a family member and that information was relayed to the staff and the patient was placed on a 1013. Today the patient is calm and cooperative during the assessment. The patient is adamant that she was upset when she gestured SI's during her ER stay. She stated that she feel much better today because her pain is being managed "properly at this time." She stated that her grandmother Ms Paris Rodriguez can be contacted for collateral information at [phone]. She denies Si/HI's and AVH's. She denies any side effects of her medication. Mental Status Exam - Vital signs Last Vital Signs Temp 97.7 F 09/14/18 04:20 Pulse 82 09/14/18 06:12 Resp 20 09/14/18 04:20 BP 121/78 09/14/18 06:12 Pulse Ox 100 09/14/18 04:20 - Exam Narrative exam: MSE: Appearance: calm, cooperative Behavior: regular eye contact Speech: regular rate and tone Mood: "okay" Affect: congruent to mood Thought Process: logical Thought Content: denies SI/HI's and AVH's Motor Activity: sitting up in bed Cognition: A/O x 3 Insight: fair Judgment: fair Assessment and Plan Impression: Hx of depression. Substance Use DO (cocaine). Today the patient is calm and cooperative during the assessment. DDx: Somatic Symptom DO Recommendation/Plan: Reevaluate 1013 in 24 hours and continue Zoloft 25 mg PO daily for depression. Discussed possible suidicality/medication induced jose ramon with the patient reference Zoloft. I the provider called the patient's grandmother [phone] Ms Paris Rodriguez to gather collateral information, no answer and a voicemail couldn't be left for Ms Paris Rodriguez. Dispo: Once collateral information is gathered, proper dispo will be determined. Will staff with Dr Hellen Dent.
[2018-09-14] MEDS: BENADRYL PO PRN (15:41)
[2018-09-14] MEDS: COZAAR PO SCH (16:52)
[2018-09-14] MEDS: LASIX PO SCH (16:53)
[2018-09-14] MEDS: ZOFRAN IV PRN (16:54)
[2018-09-14] MEDS: SODIUM CHLORIDE FLUSH SYRINGE 10 ML IV SCH ×2 (17:06→21:36)
[2018-09-14] MEDS ORDERED: NACL 0.9 (PRIMING MACHINE ONLY DIALYSIS) MC ONE (17:42)
[2018-09-15] MEDS: DILAUDID IM PRN ×2 (01:17→13:07)
[2018-09-15] MEDS: BENADRYL PO PRN (02:19)
[2018-09-15] MEDS: CATAPRES PO SCH ×2 (05:54→14:17)
[2018-09-15 06:19] LABS: Calcium 8.7 mg/dL (8.4-10.2)
--- NOTE | 2018-09-15 09:02 | Progress Note ---
Assessment and Plan Impression * End-stage renal disease on maintenance hemodialysis * Accelerated hypertension * Seizure disorder * Suicidal ideation * Noncompliance * Depression * Anemia secondary to ESRD * Fluid overload Recommendations * Continue dialysis on MWF schedule for now. Her outpatient basis however TTS * CHF resolved * Blood pressure is under much better control * Adjust diet and meds for ESRD state * No IV, BP or venipuncture in her access arm * Binders with meals * Continue antiseizure meds * Avoid nephrotoxins Subjective Date of service: 09/15/18 Principal diagnosis: Volume overload Interval history: resting well in bed today Objective - Exam Narrative Exam: General appearance: well-developed, well-nourished, appears stated age EENT: PERRL, mucous membranes moist Neck: no JVD, no thyromegaly, no carotid bruit, supple Respiratory: Present: Clear to Ascultation Cardiology: regular, normal heart rate, S1S2, no murmurs Gastrointestinal: normal, normoactive bowel sounds Integumentary: other (AV fistula in her right upper arm. Good bruit and thrill.) - Vital Signs Vital signs: Vital Signs - 12hr 09/14/18 09/15/18 23:37 06:09 Temperature 98.2 F 98.5 F Pulse Rate 85 81 Respiratory 18 20 Rate Blood Pressure 114/70 143/88 O2 Sat by Pulse 96 100 Oximetry - Lab 09/10/18 06:56 09/15/18 04:53 Most recent lab results Calcium 8.7 mg/dL (8.4-10.2) 09/15/18 04:53 Phosphorus 6.10 mg/dL (2.5-4.5) H 09/12/18 12:29 Medications & Allergies - Medications Allergies/Adverse Reactions: Allergies acetaminophen [From Percocet] Allergy (Verified 04/21/18 08:28) Itching lisinopril Allergy (Verified 04/21/18 08:28) Swelling metoprolol Allergy (Verified 04/21/18 08:28) Unknown oxycodone [From Percocet] Allergy (Verified 04/21/18 08:28) Itching oxycodone HCl [From Percocet] Adverse Reaction (Verified 04/21/18 08:28) Unknown Home Medications: Home Medications Medication Instructions Recorded Confirmed Last Taken Type Furosemide [Lasix] 80 mg PO QDAY #30 tablet 04/23/18 09/11/18 Unknown Rx Albuterol Sulfate [Proair 2 puff IH Q4H PRN #1 pump 07/15/18 09/12/18 Unknown Rx Respiclick] Hydroxychloroquine [Plaquenil] 200 mg PO QDAY #30 tablet 07/24/18 09/11/18 Unknown Rx Clonidine HCl [Catapres] 0.3 mg PO TID 08/11/18 09/11/18 Unknown History Labetalol [Normodyne TAB] 200 mg PO TID 08/11/18 09/12/18 Unknown History Losartan [Cozaar] 100 mg PO QDAY 08/11/18 09/11/18 Unknown History Sertraline [Zoloft] 25 mg PO QDAY 08/11/18 09/11/18 Unknown History hydrALAZINE [Apresoline TAB] 100 mg PO TID 08/11/18 09/11/18 Unknown History HYDROcodone/APAP 10-325 [[place] 1 each PO Q4HR PRN #7 tablet 08/14/18 09/12/18 Unknown Rx 10-325 mg TAB] Phenytoin [Dilantin] 100 mg PO TID #90 capsule.er 08/19/18 09/11/18 Unknown Rx levETIRAcetam [Keppra TAB] 1,000 mg PO BID #60 tablet 08/19/18 09/12/18 Unknown Rx Amoxicillin/Potassium Clav 1 each PO BID #10 tablet 09/08/18 09/12/18 Unknown Rx [Augmentin 500-125 Tablet] Prednisone [predniSONE 10 mg 10 mg PO .TAPER #1 tab.ds.pk 09/08/18 09/11/18 Unknown Rx (6-Day Pack, 21 Tabs)] Dicyclomine [Bentyl] 10 mg PO QID PRN #20 capsule 09/10/18 Unknown Rx Ondansetron [Zofran Odt] 4 mg PO Q8HR PRN #20 tab.rapdis 09/10/18 Unknown Rx Active Medications: Generic Name Dose Route Start Last Admin Trade Name Freq PRN Reason Stop Dose Admin Acetaminophen 650 mg 09/12/18 13:27 Tylenol PO Q4H PRN Pain MILD(1-3)/Fever >100.5/WOLFF Albuterol 2.5 mg 09/10/18 12:01 Proventil IH Q4HRT PRN Shortness Of Breath Clonidine HCl 0.3 mg 09/10/18 14:00 09/15/18 05:54 Catapres PO Not Given Q8HR FERNANDO Dicyclomine HCl 10 mg 09/10/18 10:36 09/13/18 13:19 Bentyl PO 10 mg Q6HR PRN Administration ABDOMINAL PAIN Diphenhydramine HCl 25 mg 09/14/18 16:00 09/15/18 02:19 Benadryl PO 25 mg Q6H PRN Administration Itching Furosemide 80 mg 09/10/18 12:00 09/14/18 16:53 Lasix PO Not Given QDAY FERNANDO Hydralazine HCl 100 mg 09/10/18 14:00 09/14/18 20:07 Apresoline PO 100 mg TID EFRNANDO Administration Hydromorphone HCl 1 mg 09/13/18 15:32 09/15/18 01:17 Dilaudid IM 1 mg Q3H PRN Administration Pain , Severe (7-10) Hydroxychloroquine Sulfate 200 mg 09/10/18 11:50 09/14/18 09:16 Plaquenil PO 200 mg QDAY FERNANDO Administration Levetiracetam 1,000 mg 09/10/18 11:00 09/14/18 21:31 Keppra PO 1,000 mg BID FERNANDO Administration Lorazepam 2 mg 09/10/18 10:29 09/14/18 03:35 Ativan IM 2 mg Q4HR PRN Administration Agitation Losartan Potassium 100 mg 09/10/18 12:00 09/14/18 16:52 Cozaar PO Not Given QDAY FERNANDO Ondansetron HCl 4 mg 09/10/18 10:36 09/12/18 11:03 Zofran Odt PO 4 mg Q6HR PRN Administration Nausea Ondansetron HCl 4 mg 09/12/18 13:27 09/14/18 16:54 Zofran IV 4 mg Q8H PRN Administration Nausea And Vomiting Phenytoin 100 mg 09/10/18 14:00 09/14/18 20:07 Dilantin PO 100 mg TID FERNANDO Administration Sertraline HCl 25 mg 09/11/18 12:00 09/14/18 09:17 Zoloft PO 25 mg DAILY FERNANDO Administration Sodium Chloride 10 ml 09/12/18 22:00 09/14/18 21:36 Sodium Chloride Flush Syringe 10 Ml IV 10 ml BID FERNANDO Administration Sodium Chloride 10 ml 09/12/18 13:27 Sodium Chloride Flush Syringe 10 Ml IV PRN PRN LINE FLUSH
[2018-09-15] MEDS ORDERED: KINEVAC IV ONE ×2 (10:30→10:36)
--- NOTE | 2018-09-15 12:19 | Nuclear Medicine Report ---
HEPATOBILIARY SCAN: History: Cholelithiasis. Following the injection of the radionuclide, serial scanning was obtained over the right upper quadrant. Initial imaging of the liver demonstrates a relatively normal activity pattern. Progressive concentration of the radionuclide in the bile ducts, with filling of both the gallbladder and small bowel, is identified within a normal time period. The gallbladder ejection fraction measures 90%. The patient reports the same symptom of pain was reproduced during the infusion of CCK. IMPRESSION: The cystic duct is patent. The gallbladder ejection fraction measures 90%. Symptomatology as described.
--- NOTE | 2018-09-15 13:06 | Consultation ---
History of Present Illness Consult date: 09/15/18 Reason for consult: gallstones Chief complaint: abdominal and back pain - History of present illness History of present illness: 28 yo F with PMHx including ESRD on HD, HTN presented to ER with c/o pain. The patient states she is having generalized abdominal pain, crampy, and a "knot" on her right side and flank area. This has been going on intermittently for the last 2 weeks. She has never had symptoms like this before. Movement and laying on the right side exacerbate the pain. The pain is not related to food intake. She had nausea this am but was otherwise tolerating a regular diet. The pain rad iated up to her chest. She has been having liquid BMs which she relates to medications. NO f/c. She underwent HIDA scan with EF today. She has gallstones on CT scan A/P. HIDA scan was normal however she developed crampy generalized abdominal pain after injection of CCK. Past History Past Medical History: ESRD, hypertension, seizures, other (seizure disorder and depression) Past Surgical History: Other (Right Arm Graft) Social history: lives with family Family history: hypertension Medications and Allergies Allergies Allergy/AdvReac Type Severity Reaction Status Date / Time acetaminophen [From Percocet] Allergy Itching Verified 04/21/18 08:28 lisinopril Allergy Swelling Verified 04/21/18 08:28 metoprolol Allergy Unknown Verified 04/21/18 08:28 oxycodone [From Percocet] Allergy Itching Verified 04/21/18 08:28 oxycodone HCl [From Percocet] AdvReac Unknown Verified 04/21/18 08:28 Home Medications Medication Instructions Recorded Confirmed Last Taken Type Furosemide [Lasix] 80 mg PO QDAY #30 tablet 04/23/18 09/11/18 Unknown Rx Albuterol Sulfate [Proair 2 puff IH Q4H PRN #1 pump 07/15/18 09/12/18 Unknown Rx Respiclick] Hydroxychloroquine [Plaquenil] 200 mg PO QDAY #30 tablet 07/24/18 09/11/18 Unknown Rx Clonidine HCl [Catapres] 0.3 mg PO TID 08/11/18 09/11/18 Unknown History Labetalol [Normodyne TAB] 200 mg PO TID 08/11/18 09/12/18 Unknown History Losartan [Cozaar] 100 mg PO QDAY 08/11/18 09/11/18 Unknown History Sertraline [Zoloft] 25 mg PO QDAY 08/11/18 09/11/18 Unknown History hydrALAZINE [Apresoline TAB] 100 mg PO TID 08/11/18 09/11/18 Unknown History HYDROcodone/APAP 10-325 [[place] 1 each PO Q4HR PRN #7 tablet 08/14/18 09/12/18 Unknown Rx 10-325 mg TAB] Phenytoin [Dilantin] 100 mg PO TID #90 capsule.er 08/19/18 09/11/18 Unknown Rx levETIRAcetam [Keppra TAB] 1,000 mg PO BID #60 tablet 08/19/18 09/12/18 Unknown Rx Amoxicillin/Potassium Clav 1 each PO BID #10 tablet 09/08/18 09/12/18 Unknown Rx [Augmentin 500-125 Tablet] Prednisone [predniSONE 10 mg 10 mg PO .TAPER #1 tab.ds.pk 09/08/18 09/11/18 Unknown Rx (6-Day Pack, 21 Tabs)] Dicyclomine [Bentyl] 10 mg PO QID PRN #20 capsule 09/10/18 Unknown Rx Ondansetron [Zofran Odt] 4 mg PO Q8HR PRN #20 tab.rapdis 09/10/18 Unknown Rx Active Meds: Active Medications Acetaminophen (Tylenol) 650 mg PO Q4H PRN PRN Reason: Pain MILD(1-3)/Fever >100.5/WOLFF Albuterol (Proventil) 2.5 mg IH Q4HRT PRN PRN Reason: Shortness Of Breath Clonidine HCl (Catapres) 0.3 mg PO Q8HR FERNANDO Last Admin: 09/15/18 05:54 Dose: Not Given Documented by: Dicyclomine HCl (Bentyl) 10 mg PO Q6HR PRN PRN Reason: ABDOMINAL PAIN Last Admin: 09/13/18 13:19 Dose: 10 mg Documented by: Diphenhydramine HCl (Benadryl) 25 mg PO Q6H PRN PRN Reason: Itching Last Admin: 09/15/18 02:19 Dose: 25 mg Documented by: Furosemide (Lasix) 80 mg PO QDAY [facility] Last Admin: 09/14/18 16:53 Dose: Not Given Documented by: Hydralazine HCl (Apresoline) 100 mg PO TID [facility] Last Admin: 09/14/18 20:07 Dose: 100 mg Documented by: Hydromorphone HCl (Dilaudid) 1 mg IM Q3H PRN PRN Reason: Pain , Severe (7-10) Last Admin: 09/15/18 01:17 Dose: 1 mg Documented by: Hydroxychloroquine Sulfate (Plaquenil) 200 mg PO QDAY [facility] Last Admin: 09/14/18 09:16 Dose: 200 mg Documented by: Levetiracetam (Keppra) 1,000 mg PO BID [facility] Last Admin: 09/14/18 21:31 Dose: 1,000 mg Documented by: Lorazepam (Ativan) 2 mg IM Q4HR PRN PRN Reason: Agitation Last Admin: 09/14/18 03:35 Dose: 2 mg Documented by: Losartan Potassium (Cozaar) 100 mg PO QDAY [facility] Last Admin: 09/14/18 16:52 Dose: Not Given Documented by: Ondansetron HCl (Zofran Odt) 4 mg PO Q6HR PRN PRN Reason: Nausea Last Admin: 09/12/18 11:03 Dose: 4 mg Documented by: Ondansetron HCl (Zofran) 4 mg IV Q8H PRN PRN Reason: Nausea And Vomiting Last Admin: 09/14/18 16:54 Dose: 4 mg Documented by: Phenytoin (Dilantin) 100 mg PO TID [facility] Last Admin: 09/14/18 20:07 Dose: 100 mg Documented by: Sertraline HCl (Zoloft) 25 mg PO DAILY [facility] Last Admin: 09/14/18 09:17 Dose: 25 mg Documented by: Sodium Chloride (Sodium Chloride Flush Syringe 10 Ml) 10 ml IV BID [facility] Last Admin: 09/14/18 21:36 Dose: 10 ml Documented by: Sodium Chloride (Sodium Chloride Flush Syringe 10 Ml) 10 ml IV PRN PRN PRN Reason: LINE FLUSH Review of Systems All systems: negative (10 pt ROS performed and negative except for that listed in HPI) Exam Vital Signs Temp Pulse Resp BP Pulse Ox 97.6 F 88 22 174/110 98 09/10/18 05:53 09/10/18 05:53 09/10/18 05:53 09/10/18 05:53 09/10/18 05:53 Narrative exam: Gen: AAOx3. NAD ENT: no scleral icterus or conjunctival pallor CV: S1, S2+, no m/r/g Resp: CTAB, no w/r/r Abd: soft, ND, +bowel sounds in all 4 quadrants. Generalized abdominal TTP in all 4 quadrants, no r/r/g. + Pain in bilateral flanks on palpation. Ext: no c/c/e Results - Labs 09/10/18 06:56 09/15/18 04:53 Abnormal lab results 09/15/18 Range/Units 04:53 Chloride 95.8 L (98-107) mmol/L Creatinine 5.9 H (0.7-1.2) mg/dL Diabetes panel 09/15/18 Range/Units 04:53 Sodium 139 (137-145) mmol/L Potassium 4.0 (3.6-5.0) mmol/L Chloride 95.8 L (98-107) mmol/L Carbon Dioxide 29 (22-30) mmol/L BUN 13 (7-17) mg/dL Creatinine 5.9 H (0.7-1.2) mg/dL Glucose 79 (65-100) mg/dL Calcium 8.7 (8.4-10.2) mg/dL Calcium panel 09/15/18 Range/Units 04:53 Calcium 8.7 (8.4-10.2) mg/dL Pituitary panel 09/15/18 Range/Units 04:53 Sodium 139 (137-145) mmol/L Potassium 4.0 (3.6-5.0) mmol/L Chloride 95.8 L (98-107) mmol/L Carbon Dioxide 29 (22-30) mmol/L BUN 13 (7-17) mg/dL Creatinine 5.9 H (0.7-1.2) mg/dL Glucose 79 (65-100) mg/dL Calcium 8.7 (8.4-10.2) mg/dL Adrenal panel 09/15/18 Range/Units 04:53 Sodium 139 (137-145) mmol/L Potassium 4.0 (3.6-5.0) mmol/L Chloride 95.8 L (98-107) mmol/L Carbon Dioxide 29 (22-30) mmol/L BUN 13 (7-17) mg/dL Creatinine 5.9 H (0.7-1.2) mg/dL Glucose 79 (65-100) mg/dL Calcium 8.7 (8.4-10.2) mg/dL - Imaging CT scan - abdomen: report reviewed, image reviewed CT scan - pelvis: report reviewed, image reviewed Additional studies: HIDA scan Assessment and Plan 28 yo F with abdominal pain All labs and imaging reviewed. The patient has gallstones on CT scan A/P, normal HIDA scan with 90% EF. Patient did have abdominal pain after injection of CCK. This may be multifactorial, however the patient's symptoms do not seem to fit with gallbladder pathology. He abdominal pain is subsiding. She has a large stool burden on CT scan. Plan: 1. continue renal diet 2. daily stool softener 3. may be discharged from surgical standpoint, no intervention indicated at this time D/W Dr. Randall. Thank you, please call with questions
[2018-09-15] MEDS: PLAQUENIL PO SCH (13:08)
[2018-09-15] MEDS: ZOLOFT PO SCH (13:08)
[2018-09-15] MEDS: DILANTIN PO SCH ×2 (13:08→14:05)
[2018-09-15] MEDS: KEPPRA PO SCH (13:09)
[2018-09-15] MEDS: LASIX PO SCH (13:09)
[2018-09-15] MEDS: APRESOLINE PO SCH ×2 (13:09→14:05)
[2018-09-15] MEDS: COZAAR PO SCH (13:09)
[2018-09-15] MEDS: SODIUM CHLORIDE FLUSH SYRINGE 10 ML IV SCH (13:10)
--- NOTE | 2018-09-15 14:36 | Progress Note ---
Subjective - Reason for Consult Consult date: 09/15/18 Reason for consult: Psychiatry Follow-up - Chief Complaint Chief complaint: "Hello" 28 y.o. AA female who presented to the ER for generalized body pain. The patient endorsed SI's to a family member and that information was relayed to the staff and the patient was placed on a 1013. Today the patient is calm and cooperative during the assessment. Per collateral information from the patient's grandmother Paris Ricks at [phone], she stated the the patient wasn't suicidal. She stated that her granddaughter was in pain when she called a relative and stated being suicidal. She denies any suicidal gestures/attempts by the patient. She stated that the patient can return home once discharged. The patient denies SI/HI's and AVH's. She denies any side effects of her medication. Mental Status Exam - Vital signs Last Vital Signs Temp 98.5 F 09/15/18 06:09 Pulse 81 09/15/18 06:09 Resp 20 09/15/18 06:09 BP 143/88 09/15/18 06:09 Pulse Ox 100 09/15/18 06:09 - Exam Narrative exam: MSE: Appearance: calm, cooperative Behavior: regular eye contact Speech: regular rate and tone Mood: "okay" Affect: congruent to mood Thought Process: logical Thought Content: denies SI/HI's and AVH's Motor Activity: sitting up in bed Cognition: A/O x 3 Insight: appropriate Judgment: appropriate Assessment and Plan Impression: Hx of depression. Substance Use DO (cocaine). Today the patient is calm and cooperative during the assessment. The patient is no threat to self. DDx: Somatic Symptom DO Recommendation/Plan: Rescind 1013 and continue Zoloft 25 mg PO daily for depression. Discussed possible suidicality/medication induced jose ramon with the patient reference Zoloft. Dispo: The patient can follow up with [facility] for outpatient psy services. Will staff with Dr Sanjuana Dent.
[2018-09-15 14:48] VITALS: BP 147/94
[2018-09-15] MEDS ORDERED: COLACE PO SCH (22:00)
== END 2018-09-15 17:15 | disposition home or self-care (01) | DRG 189 ==
LOC: ED 05:45 → 3A 09-12 10:27 → OBSVTOIN 09-12 10:27 → 3A 09-12 16:43
PROVIDERS: ADMIT Internal Medicine; ATTEND Internal Medicine
PROC: 5A1D70Z Performance of Urinary Filtration, Intermittent, Less than 6 Hours Per Day (ICD-10-PCS; principal; 2018-09-12)
PROC: 5A1D70Z Performance of Urinary Filtration, Intermittent, Less than 6 Hours Per Day (ICD-10-PCS; 2018-09-14)
DX: J96.21 Acute and chronic respiratory failure with hypoxia (principal); N18.6 End stage renal disease; I13.0 Hypertensive heart and chronic kidney disease with heart failure and stage 1 through stage 4 chronic kidney disease, or unspecified chronic kidney disease; R45.851 Suicidal ideations; F14.20 Cocaine dependence, uncomplicated; J45.901 Unspecified asthma with (acute) exacerbation; N30.00 Acute cystitis without hematuria; E87.2 Acidosis; E87.70 Fluid overload, unspecified; F17.200 Nicotine dependence, unspecified, uncomplicated; G40.909 Epilepsy, unspecified, not intractable, without status epilepticus; D63.1 Anemia in chronic kidney disease; K80.80 Other cholelithiasis without obstruction; G89.4 Chronic pain syndrome; F32.9 Major depressive disorder, single episode, unspecified; I50.9 Heart failure, unspecified; G43.909 Migraine, unspecified, not intractable, without status migrainosus; Z99.2 Dependence on renal dialysis; Z91.19 Patient's noncompliance with other medical treatment and regimen; Z82.49 Family history of ischemic heart disease and other diseases of the circulatory system; Z88.6 Allergy status to analgesic agent; Z88.5 Allergy status to narcotic agent; Z79.51 Long term (current) use of inhaled steroids; Z79.899 Other long term (current) drug therapy
CPT/HCPCS: 36415; 71045; 74176; 78227; 80048; 80053; 80307; 81001; 82550; 82553; 83690; 84100; 84703; 85025; 87116; 96372; 96374; 96375; 96376; G0378; A9537; J0360; J1170; J2060; J2405; J2805; J3246; J7030; Q0162; Q9967

== ENCOUNTER 2018-10-15 23:27 | Emergency (ER) | payer MEDICARE ==
[2018-10-15] MEDS ORDERED: KEPPRA 1,000 MG/NS 0.75% 100ML 1,000 MG/100 ML BAG IV ONE (23:43)
--- NOTE | 2018-10-15 23:48 | Emergency Department Report ---
ED Seizure HPI - General Stated Complaint: SEIZURES Time Seen by Provider: 10/15/18 23:33 Source: family, EMS, old records reviewed Mode of arrival: Stretcher Limitations: No Limitations - History of Present Illness Initial Comments: Ms. Turner is 28 yo female with hx of lupus, seizure disorder, ESRD on HD MWF, cocaine use, CHF who presents with 3 reported seizures today according to EMS. Mother provided information to EMS. Ms. Turner refuses to speak to me at this time. Ms. Turner was awake and alert upon arrival. She transferred from EMS stretcher to ED bed on her own. She did receive dialysis today according to EMS. Information obtained from EMR. 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 Complaint: seizure -: This evening Witnessed:: Yes Trauma: No Seizure History: known seizure disorder Place: home Possible Precipitating Event: other (unknown) Associated Symptoms: denies other symptoms - Related Data Home Medications Medication Instructions Recorded Confirmed Last Taken Clonidine HCl [Catapres] 0.3 mg PO TID 08/11/18 09/11/18 Unknown Labetalol [Normodyne TAB] 200 mg PO TID 08/11/18 09/12/18 Unknown Losartan [Cozaar] 100 mg PO QDAY 08/11/18 09/11/18 Unknown Sertraline [Zoloft] 25 mg PO QDAY 08/11/18 09/11/18 Unknown hydrALAZINE [Apresoline TAB] 100 mg PO TID 08/11/18 09/11/18 Unknown Previous Rx's Medication Instructions Recorded Last Taken Type Furosemide [Lasix] 80 mg PO QDAY #30 tablet 04/23/18 Unknown Rx Albuterol Sulfate [Proair 2 puff IH Q4H PRN #1 pump 07/15/18 Unknown Rx Respiclick] Hydroxychloroquine [Plaquenil] 200 mg PO QDAY #30 tablet 07/24/18 Unknown Rx HYDROcodone/APAP 10-325 [[place] 1 each PO Q4HR PRN #7 tablet 08/14/18 Unknown Rx 10-325 mg TAB] Phenytoin [Dilantin] 100 mg PO TID #90 capsule.er 08/19/18 Unknown Rx levETIRAcetam [Keppra TAB] 1,000 mg PO BID #60 tablet 08/19/18 Unknown Rx Amoxicillin/Potassium Clav 1 each PO BID #10 tablet 09/08/18 Unknown Rx [Augmentin 500-125 Tablet] Prednisone [predniSONE 10 mg 10 mg PO .TAPER #1 tab.ds.pk 09/08/18 Unknown Rx (6-Day Pack, 21 Tabs)] Dicyclomine [Bentyl] 10 mg PO QID PRN #20 capsule 09/10/18 Unknown Rx Ondansetron [Zofran Odt] 4 mg PO Q8HR PRN #20 tab.rapdis 09/10/18 Unknown Rx Allergies Allergy/AdvReac Type Severity Reaction Status Date / Time acetaminophen [From Percocet] Allergy Itching Verified 04/21/18 08:28 lisinopril Allergy Swelling Verified 04/21/18 08:28 metoprolol Allergy Unknown Verified 04/21/18 08:28 oxycodone [From Percocet] Allergy Itching Verified 04/21/18 08:28 oxycodone HCl [From Percocet] AdvReac Unknown Verified 04/21/18 08:28 ED Review of Systems ROS: Stated complaint: SEIZURES Other details as noted in HPI Comment: Unobtainable due to pts medical conditions (Patient will not cooperate with history taking) ED Past Medical Hx - Past Medical History Previous Medical History?: Yes Hx Hypertension: Yes Hx Congestive Heart Failure: Yes Hx Diabetes: No Hx Renal Disease: Yes (Tues, Thurs, Sat) Hx Arthritis: Yes Hx Headaches / Migraines: Yes Hx Seizures: Yes (2 seizures last month) Hx Asthma: Yes Hx COPD: No Hx HIV: No Additional medical history: Lupus - Surgical History Additional Surgical History: RIGHT ARM graft - Social History Smoking Status: Current Every Day Smoker - Medications Home Medications: Home Medications Medication Instructions Recorded Confirmed Last Taken Type Furosemide [Lasix] 80 mg PO QDAY #30 tablet 04/23/18 09/11/18 Unknown Rx Albuterol Sulfate [Proair 2 puff IH Q4H PRN #1 pump 07/15/18 09/12/18 Unknown Rx Respiclick] Hydroxychloroquine [Plaquenil] 200 mg PO QDAY #30 tablet 07/24/18 09/11/18 Un known Rx Clonidine HCl [Catapres] 0.3 mg PO TID 08/11/18 09/11/18 Unknown History Labetalol [Normodyne TAB] 200 mg PO TID 08/11/18 09/12/18 Unknown History Losartan [Cozaar] 100 mg PO QDAY 08/11/18 09/11/18 Unknown History Sertraline [Zoloft] 25 mg PO QDAY 08/11/18 09/11/18 Unknown History hydrALAZINE [Apresoline TAB] 100 mg PO TID 08/11/18 09/11/18 Unknown History HYDROcodone/APAP 10-325 [[place] 1 each PO Q4HR PRN #7 tablet 08/14/18 09/12/18 Unknown Rx 10-325 mg TAB] Phenytoin [Dilantin] 100 mg PO TID #90 capsule.er 08/19/18 09/11/18 Unknown Rx levETIRAcetam [Keppra TAB] 1,000 mg PO BID #60 tablet 08/19/18 09/12/18 Unknown Rx Amoxicillin/Potassium Clav 1 each PO BID #10 tablet 09/08/18 09/12/18 Unknown Rx [Augmentin 500-125 Tablet] Prednisone [predniSONE 10 mg 10 mg PO .TAPER #1 tab.ds.pk 09/08/18 09/11/18 Unknown Rx (6-Day Pack, 21 Tabs)] Dicyclomine [Bentyl] 10 mg PO QID PRN #20 capsule 09/10/18 Unknown Rx Ondansetron [Zofran Odt] 4 mg PO Q8HR PRN #20 tab.rapdis 09/10/18 Unknown Rx ED Physical Exam - General General appearance: alert, in no apparent distress - Head Head exam: Present: atraumatic, normocephalic - Eye Eye exam: Present: normal appearance - ENT ENT exam: Present: mucous membranes moist - Neck Neck exam: Present: normal inspection - Respiratory Respiratory exam: Present: normal lung sounds bilaterally. Absent: respiratory distress, wheezes, rales, rhonchi - Cardiovascular Cardiovascular Exam: Present: regular rate, normal rhythm, rubs - GI/Abdominal GI/Abdominal exam: Present: soft, normal bowel sounds. Absent: distended, tenderness, guarding, rebound - Extremities Exam Extremities exam: Present: normal inspection - Back Exam Back exam: Present: normal inspection - Neurological Exam Neurological exam: Present: alert - Psychiatric Psychiatric exam: Present: flat affect - Skin Skin exam: Present: warm, dry, intact, normal color. Absent: rash ED Course Vital Signs 10/15/18 10/15/18 10/15/18 23:41 23:46 23:48 Temperature 98.4 F 98.4 F Pulse Rate 95 H 95 H Respiratory 18 18 18 Rate Blood Pressure 137/94 Blood Pressure 137/94 137/94 [Left] O2 Sat by Pulse 97 97 98 Oximetry 10/16/18 10/16/18 10/16/18 00:13 01:00 02:00 Temperature Pulse Rate Respiratory Rate Blood Pressure 130/87 115/75 124/83 Blood Pressure [Left] O2 Sat by Pulse 97 99 96 Oximetry 10/16/18 03:00 Temperature Pulse Rate Respiratory Rate Blood Pressure 127/89 Blood Pressure [Left] O2 Sat by Pulse 97 Oximetry ED Medical Decision Making - Lab Data Result diagrams: 10/15/18 23:57 10/15/18 23:57 - Medical Decision Making Ms. Turner presents to ER with reported seizure. No sz activity occurred in the ED. She was dc'd home to the care of her grandmother bedside. Given IV keppra. Dilantin level nontherapeutic. I am unclear if she takes this medication. Critical care attestation.: If time is entered above; I have spent that time in minutes in the direct care of this critically ill patient, excluding procedure time. ED Disposition Clinical Impression: Seizure Disposition: DC-01 TO HOME OR SELFCARE Is pt being admited?: No Does the pt Need Aspirin: No Condition: Stable Instructions: Epilepsy (ED) Referrals: LV VICTOR MD [Primary Care Provider] - 3-5 Days
[2018-10-16 00:31] LABS: Basophils % (Auto) 0.3 % (0.0-1.8); Eosinophils # (Auto) 0.1 K/mm3 (0.0-0.4); Eosinophils % (Auto) 2.9 % (0.0-4.3); Hematocrit 39.5 % (30.3-42.9); Hemoglobin 12.2 gm/dl (10.1-14.3); Lymphocytes # (Auto) 0.4 K/mm3 (1.2-5.4); Lymphocytes % (Auto) 9.7 % (13.4-35.0); Mean Corpuscular HGB Conc 31 % (30-34); Mean Corpuscular Volume 94 fl (79-97); Monocytes # (Auto) 0.3 K/mm3 (0.0-0.8); Monocytes % (Auto) 7.4 % (0.0-7.3); Platelet Count 216 K/mm3 (140-440); Red Blood Count 4.21 M/mm3 (3.65-5.03)
[2018-10-16 00:32] LABS: Red Cell Distribution Width 22.5 % (13.2-15.2)
[2018-10-16 00:33] LABS: Calcium 8.9 mg/dL (8.4-10.2)
[2018-10-16 03:31] VITALS: BP 127/89
== END 2018-10-16 04:06 | disposition home or self-care (01) ==
LOC: ED 23:27
DX: G40.909 Epilepsy, unspecified, not intractable, without status epilepticus (principal); I11.0 Hypertensive heart disease with heart failure; I50.9 Heart failure, unspecified; M19.90 Unspecified osteoarthritis, unspecified site; J45.909 Unspecified asthma, uncomplicated; Z88.6 Allergy status to analgesic agent; Z88.8 Allergy status to other drugs, medicaments and biological substances; Z88.5 Allergy status to narcotic agent
CPT/HCPCS: 36415; 80048; 80185; 85025; 96374; 99284; J1953

== ENCOUNTER 2018-10-20 13:27 | Emergency (ER) | payer MEDICARE ==
[2018-10-20 14:15] VITALS: BP 161/111
[2018-10-20] MEDS ORDERED: KEPPRA PO ONE (14:37)
--- NOTE | 2018-10-20 15:04 | Emergency Department Report ---
ED General Adult HPI - General Chief complaint: Seizure Stated complaint: SEIZURE Time Seen by Provider: 10/20/18 14:32 Source: EMS Mode of arrival: Stretcher Limitations: No Limitations - History of Present Illness Initial comments: Patient presents to the emergency department from dialysis for seizure. Patient has a history of seizures and states the swelling was no different. The patient was not post ictal on arrival to the ED nor did she have loss of bladder. Patient denies chest pain, shortness of breath, abdominal pain. -: Sudden Severity scale (0 -10): 0 Consistency: now resolved Improves with: none Worsens with: none Associated Symptoms: denies other symptoms Treatments Prior to Arrival: none - Related Data Home Medications Medication Instructions Recorded Confirmed Last Taken Clonidine HCl [Catapres] 0.3 mg PO TID 08/11/18 09/11/18 Unknown Labetalol [Normodyne TAB] 200 mg PO TID 08/11/18 09/12/18 Unknown Losartan [Cozaar] 100 mg PO QDAY 08/11/18 09/11/18 Unknown Sertraline [Zoloft] 25 mg PO QDAY 08/11/18 09/11/18 Unknown hydrALAZINE [Apresoline TAB] 100 mg PO TID 08/11/18 09/11/18 Unknown Previous Rx's Medication Instructions Recorded Last Taken Type Furosemide [Lasix] 80 mg PO QDAY #30 tablet 04/23/18 Unknown Rx Albuterol Sulfate [Proair 2 puff IH Q4H PRN #1 pump 07/15/18 Unknown Rx Respiclick] Hydroxychloroquine [Plaquenil] 200 mg PO QDAY #30 tablet 07/24/18 Unknown Rx HYDROcodone/APAP 10-325 [[place] 1 each PO Q4HR PRN #7 tablet 08/14/18 Unknown Rx 10-325 mg TAB] Phenytoin [Dilantin] 100 mg PO TID #90 capsule.er 08/19/18 Unknown Rx levETIRAcetam [Keppra TAB] 1,000 mg PO BID #60 tablet 08/19/18 Unknown Rx Amoxicillin/Potassium Clav 1 each PO BID #10 tablet 09/08/18 Unknown Rx [Augmentin 500-125 Tablet] Prednisone [predniSONE 10 mg 10 mg PO .TAPER #1 tab.ds.pk 09/08/18 Unknown Rx (6-Day Pack, 21 Tabs)] Dicyclomine [Bentyl] 10 mg PO QID PRN #20 capsule 09/10/18 Unknown Rx Ondansetron [Zofran Odt] 4 mg PO Q8HR PRN #20 tab.rapdis 09/10/18 Unknown Rx Allergies Allergy/AdvReac Type Severity Reaction Status Date / Time acetaminophen [From Percocet] Allergy Itching Verified 04/21/18 08:28 lisinopril Allergy Swelling Verified 04/21/18 08:28 metoprolol Allergy Unknown Verified 04/21/18 08:28 oxycodone [From Percocet] Allergy Itching Verified 04/21/18 08:28 oxycodone HCl [From Percocet] AdvReac Unknown Verified 04/21/18 08:28 ED Review of Systems ROS: Stated complaint: SEIZURE Other details as noted in HPI Comment: All other systems reviewed and negative Constitutional: denies: chills, fever Eyes: denies: eye pain, eye discharge, vision change ENT: denies: ear pain, throat pain Respiratory: denies: cough, shortness of breath, wheezing Cardiovascular: denies: chest pain, palpitations Endocrine: no symptoms reported Gastrointestinal: denies: abdominal pain, nausea, diarrhea Genitourinary: denies: urgency, dysuria, discharge Musculoskeletal: denies: back pain, joint swelling, arthralgia Skin: denies: rash, lesions Neurological: denies: headache, weakness, paresthesias Psychiatric: denies: anxiety, depression Hematological/Lymphatic: denies: easy bleeding, easy bruising ED Past Medical Hx - Past Medical History Previous Medical History?: Yes Hx Hypertension: Yes Hx Congestive Heart Failure: Yes Hx Diabetes: No Hx Renal Disease: Yes (Tues, Thurs, Sat) Hx Arthritis: Yes Hx Headaches / Migraines: Yes Hx Seizures: Yes (2 seizures last month) Hx Asthma: Yes Hx COPD: No Hx HIV: No Additional medical history: Lupus - Surgical History Past Surgical History?: Yes Additional Surgical History: RIGHT ARM graft - Social History Smoking Status: Never Smoker Substance Use Type: Cocaine - Medications Home Medications: Home Medications Medication Instructions Recorded Confirmed Last Taken Type Furosemide [Lasix] 80 mg PO QDAY #30 tablet 04/23/18 09/11/18 Unknown Rx Albuterol Sulfate [Proair 2 puff IH Q4H PRN #1 pump 07/15/18 09/12/18 Unknown Rx Respiclick] Hydroxychloroquine [Plaquenil] 200 mg PO QDAY #30 tablet 07/24/18 09/11/18 Unknown Rx Clonidine HCl [Catapres] 0.3 mg PO TID 08/11/18 09/11/18 Unknown History Labetalol [Normodyne TAB] 200 mg PO TID 08/11/18 09/12/18 Unknown History Losartan [Cozaar] 100 mg PO QDAY 08/11/18 09/11/18 Unknown History Sertraline [Zoloft] 25 mg PO QDAY 08/11/18 09/11/18 Unknown History hydrALAZINE [Apresoline TAB] 100 mg PO TID 08/11/18 09/11/18 Unknown History HYDROcodone/APAP 10-325 [[place] 1 each PO Q4HR PRN #7 tablet 08/14/18 09/12/18 Unknown Rx 10-325 mg TAB] Phenytoin [Dilantin] 100 mg PO TID #90 capsule.er 08/19/18 09/11/18 Unknown Rx levETIRAcetam [Keppra TAB] 1,000 mg PO BID #60 tablet 08/19/18 09/12/18 Unknown Rx Amoxicillin/Potassium Clav 1 each PO BID #10 tablet 09/08/18 09/12/18 Unknown Rx [Augmentin 500-125 Tablet] Prednisone [predniSONE 10 mg 10 mg PO .TAPER #1 tab.ds.pk 09/08/18 09/11/18 Unknown Rx (6-Day Pack, 21 Tabs)] Dicyclomine [Bentyl] 10 mg PO QID PRN #20 capsule 09/10/18 Unknown Rx Ondansetron [Zofran Odt] 4 mg PO Q8HR PRN #20 tab.rapdis 09/10/18 Unknown Rx ED Physical Exam - General Limitations: No Limitations General appearance: alert, in no apparent distress - Head Head exam: Present: atraumatic, normocephalic - Eye Eye exam: Present: normal appearance, PERRL, EOMI - ENT ENT exam: Present: mucous membranes moist - Neck Neck exam: Present: normal inspection - Respiratory Respiratory exam: Present: normal lung sounds bilaterally. Absent: respiratory distress, wheezes, rales, rhonchi - Cardiovascular Cardiovascular Exam: Present: regular rate, normal rhythm. Absent: systolic m urmur, diastolic murmur, rubs, gallop - GI/Abdominal GI/Abdominal exam: Present: soft, normal bowel sounds. Absent: distended, tenderness - Extremities Exam Extremities exam: Present: normal inspection - Back Exam Back exam: Present: normal inspection - Neurological Exam Neurological exam: Present: alert, oriented X3. Absent: CN II-XII intact, motor sensory deficit - Psychiatric Psychiatric exam: Present: normal affect, normal mood - Skin Skin exam: Present: warm, dry, intact, normal color. Absent: rash ED Course Vital Signs 10/20/18 10/20/18 14:12 14:40 Temperature 98.7 F 99.1 F Pulse Rate 105 H Respiratory 14 Rate Blood Pressure 161/111 O2 Sat by Pulse 99 Oximetry ED Medical Decision Making - Medical Decision Making The patient was given SHAHRZAD Haynes Critical care attestation.: If time is entered above; I have spent that time in minutes in the direct care of this critically ill patient, excluding procedure time. ED Disposition Clinical Impression: Seizure Disposition: DC-01 TO HOME OR SELFCARE Is pt being admited?: No Does the pt Need Aspirin: No Condition: Stable Instructions: Recurrent Seizures Adult (ED) Additional Instructions: return if worse Referrals: [facility] [Provider Group] - 3-5 Days [facility] [Provider Group] - 3-5 Days [facility] [Outside] - 3-5 Days Time of Disposition: 14:59
== END 2018-10-20 15:35 | disposition home or self-care (01) ==
LOC: ED 13:27
DX: R56.9 Unspecified convulsions (principal); I13.0 Hypertensive heart and chronic kidney disease with heart failure and stage 1 through stage 4 chronic kidney disease, or unspecified chronic kidney disease; N18.9 Chronic kidney disease, unspecified; I50.9 Heart failure, unspecified; M19.90 Unspecified osteoarthritis, unspecified site; G43.909 Migraine, unspecified, not intractable, without status migrainosus; F14.10 Cocaine abuse, uncomplicated; Z79.899 Other long term (current) drug therapy; Z88.6 Allergy status to analgesic agent; Z88.1 Allergy status to other antibiotic agents
CPT/HCPCS: 99283

== ENCOUNTER 2018-11-12 06:13 | Emergency (ER) | payer MEDICARE ==
[2018-11-12 06:28] VITALS: BP 166/105
--- NOTE | 2018-11-12 06:40 | Emergency Department Report ---
ED Extremity Problem HPI - General Chief complaint: Pain General Stated complaint: LEG PAIN Time Seen by Provider: 11/12/18 06:22 Source: patient, EMS Mode of arrival: Stretcher Limitations: Physical Limitation - History of Present Illness Initial comments: 28-year-old female with history of lupus, ESRD presents to ED with complaint of muscle spasm and joint pain (hips and knees) to bilateral lower extremities, worse on right side. Patient states she believes that her lupus is acting up. Reports chronic right-sided pain. Patient states she did a lot of walking around the mall 2 days ago with her sister, more than usual. States she believes that this triggered her pain, which began last night. Patient states she took [id number] meds, without relief. Patient denies fever, swelling to lower extremities. MD Complaint: extremity pain -: days(s) (1) Location: bilateral lower extremity History of Same: Yes -: Yes arthralgia Severity scale (0 -10): 8 Quality: aching Consistency: constant Improves with: immobilization Worsens with: weight bearing, walking Associated Symptoms: denies other symptoms - Related Data Home Medications Medication Instructions Recorded Confirmed Last Taken Clonidine HCl [Catapres] 0.3 mg PO TID 08/11/18 09/11/18 Unknown Labetalol [Normodyne TAB] 200 mg PO TID 08/11/18 09/12/18 Unknown Losartan [Cozaar] 100 mg PO QDAY 08/11/18 09/11/18 Unknown Sertraline [Zoloft] 25 mg PO QDAY 08/11/18 09/11/18 Unknown hydrALAZINE [Apresoline TAB] 100 mg PO TID 08/11/18 09/11/18 Unknown Previous Rx's Medication Instructions Recorded Last Taken Type Furosemide [Lasix] 80 mg PO QDAY #30 tablet 04/23/18 Unknown Rx Albuterol Sulfate [Proair 2 puff IH Q4H PRN #1 pump 07/15/18 Unknown Rx Respiclick] Hydroxychloroquine [Plaquenil] 200 mg PO QDAY #30 tablet 07/24/18 Unknown Rx HYDROcodone/APAP 10-325 [Vista 1 each PO Q4HR PRN #7 tablet 08/14/18 Unknown Rx 10-325 mg TAB] Phenytoin [Dilantin] 100 mg PO TID #90 capsule.er 08/19/18 Unknown Rx levETIRAcetam [Keppra TAB] 1,000 mg PO BID #60 tablet 08/19/18 Unknown Rx Amoxicillin/Potassium Clav 1 each PO BID #10 tablet 09/08/18 Unknown Rx [Augmentin 500-125 Tablet] Prednisone [predniSONE 10 mg 10 mg PO .TAPER #1 tab.ds.pk 09/08/18 Unknown Rx (6-Day Pack, 21 Tabs)] Dicyclomine [Bentyl] 10 mg PO QID PRN #20 capsule 09/10/18 Unknown Rx Ondansetron [Zofran Odt] 4 mg PO Q8HR PRN #20 tab.rapdis 09/10/18 Unknown Rx Methocarbamol [Robaxin-750] 750 mg PO Q6HR PRN #10 tablet 11/12/18 Unknown Rx Allergies Allergy/AdvReac Type Severity Reaction Status Date / Time acetaminophen [From Percocet] Allergy Itching Verified 04/21/18 08:28 lisinopril Allergy Swelling Verified 04/21/18 08:28 metoprolol Allergy Unknown Verified 04/21/18 08:28 oxycodone [From Percocet] Allergy Itching Verified 04/21/18 08:28 oxycodone HCl [From Percocet] AdvReac Unknown Verified 04/21/18 08:28 ED Review of Systems ROS: Stated complaint: LEG PAIN Other details as noted in HPI Comment: All other systems reviewed and negative Constitutional: denies: chills, fever Respiratory: denies: shortness of breath Cardiovascular: denies: chest pain Musculoskeletal: arthralgia, other (denies lower extremity swelling) ED Past Medical Hx - Past Medical History Previous Medical History?: Yes Hx Hypertension: Yes Hx Congestive Heart Failure: Yes Hx Diabetes: No Hx Renal Disease: Yes (Tues, Thurs, Sat) Hx Arthritis: Yes Hx Headaches / Migraines: Yes Hx Seizures: Yes (2 seizures last month) Hx Asthma: Yes Hx COPD: No Hx HIV: No Additional medical history: Lupus - Surgical History Past Surgical History?: Yes Additional Surgical History: RIGHT ARM graft - Social History Smoking Status: Current Every Day Smoker Substance Use Type: None - Medications Home Medications: Home Medications Medication Instructions Recorded Confirmed Last Taken Type Furosemide [Lasix] 80 mg PO QDAY #30 tablet 04/23/18 09/11/18 Unknown Rx Albuterol Sulfate [Proair 2 puff IH Q4H PRN #1 pump 07/15/18 09/12/18 Unknown Rx Respiclick] Hydroxychloroquine [Plaquenil] 200 mg PO QDAY #30 tablet 07/24/18 09/11/18 Unknown Rx Clonidine HCl [Catapres] 0.3 mg PO TID 08/11/18 09/11/18 Unknown History Labetalol [Normodyne TAB] 200 mg PO TID 08/11/18 09/12/18 Unknown History Losartan [Cozaar] 100 mg PO QDAY 08/11/18 09/11/18 Unknown History Sertraline [Zoloft] 25 mg PO QDAY 08/11/18 09/11/18 Unknown History hydrALAZINE [Apresoline TAB] 100 mg PO TID 08/11/18 09/11/18 Unknown History HYDROcodone/APAP 10-325 [Vista 1 each PO Q4HR PRN #7 tablet 08/14/18 09/12/18 Unknown Rx 10-325 mg TAB] Phenytoin [Dilantin] 100 mg PO TID #90 capsule.er 08/19/18 09/11/18 Unknown Rx levETIRAcetam [Keppra TAB] 1,000 mg PO BID #60 tablet 08/19/18 09/12/18 Unknown Rx Amoxicillin/Potassium Clav 1 each PO BID #10 tablet 09/08/18 09/12/18 Unknown Rx [Augmentin 500-125 Tablet] Prednisone [predniSONE 10 mg 10 mg PO .TAPER #1 tab.ds.pk 09/08/18 09/11/18 Unknown Rx (6-Day Pack, 21 Tabs)] Dicyclomine [Bentyl] 10 mg PO QID PRN #20 capsule 09/10/18 Unknown Rx Ondansetron [Zofran Odt] 4 mg PO Q8HR PRN #20 tab.rapdis 09/10/18 Unknown Rx Methocarbamol [Robaxin-750] 750 mg PO Q6HR PRN #10 tablet 11/12/18 Unknown Rx ED Physical Exam - General Limitations: Physical Limitation General appearance: alert, in no apparent distress - Head Head exam: Present: atraumatic, normocephalic - Eye Eye exam: Present: normal appearance - ENT ENT exam: Present: mucous membranes moist - Neck Neck exam: Present: normal inspection - Respiratory Respiratory exam: Present: normal lung sounds bilaterally. Absent: respiratory distress - Cardiovascular Cardiovascular Exam: Present: regular rate, normal rhythm - GI/Abdominal GI/Abdominal exam: Present: soft. Absent: distended - Extremities Exam Extremities exam: Present: normal inspection. Absent: joint swelling, calf te nderness - Neurological Exam Neurological exam: Present: alert, oriented X3 - Psychiatric Psychiatric exam: Present: normal affect, normal mood - Skin Skin exam: Present: warm, dry, intact, normal color ED Course Vital Signs 11/12/18 06:24 Temperature 98.2 F Pulse Rate 94 H Respiratory 18 Rate Blood Pressure 166/105 [Left] O2 Sat by Pulse 100 Oximetry ED Medical Decision Making - Medical Decision Making [place] [employer] Aware review shows patient has history of filling multiple narcotic prescriptions from different physicians, last of which was 08/2018. Discussed robaxin, a muscle relaxer, pt agrees to this. States she will be starting pain management once her Medicaid is sorted out. Will d/c at this time so that patient can make it to her dialysis appointment. Return precautions given. - Differential Diagnosis chronic pain Critical care attestation.: If time is entered above; I have spent that time in minutes in the direct care of this critically ill patient, excluding procedure time. ED Disposition Clinical Impression: Chronic pain Disposition: DC-01 TO HOME OR SELFCARE Is pt being admited?: No Condition: Stable Instructions: Chronic Pain (ED) Prescriptions: Methocarbamol [Robaxin-750] 750 mg PO Q6HR PRN #10 tablet PRN Reason: Spasms Referrals: PRIMARY CARE, [Primary Care Provider] - 3-5 Days Time of Disposition: 06:46
[2018-11-12] MEDS ORDERED: ROBAXIN PO ONE (06:45)
== END 2018-11-12 08:30 | disposition home or self-care (01) ==
LOC: ED 06:13
DX: G89.29 Other chronic pain (principal); M25.551 Pain in right hip; M25.552 Pain in left hip; M25.562 Pain in left knee; M25.561 Pain in right knee; I11.0 Hypertensive heart disease with heart failure; I50.9 Heart failure, unspecified; M19.90 Unspecified osteoarthritis, unspecified site; G43.909 Migraine, unspecified, not intractable, without status migrainosus; J45.909 Unspecified asthma, uncomplicated; F17.200 Nicotine dependence, unspecified, uncomplicated; Z88.6 Allergy status to analgesic agent; Z88.8 Allergy status to other drugs, medicaments and biological substances
CPT/HCPCS: 99283

== ENCOUNTER 2018-11-16 04:39 | Inpatient (IN) | payer MEDICARE ==
[2018-11-16] MEDS ORDERED: ATIVAN PO ONE (05:21)
[2018-11-16] MEDS ORDERED: ATIVAN ONE (05:24)
[2018-11-16 05:31] LABS: Basophils % (Auto) 0.5 % (0.0-1.8); Eosinophils % (Auto) 0.5 % (0.0-4.3); Hematocrit 31.5 % (30.3-42.9); Hemoglobin 10.4 gm/dl (10.1-14.3); Lymphocytes # (Auto) 0.5 K/mm3 (1.2-5.4); Lymphocytes % (Auto) 6.5 % (13.4-35.0); Mean Corpuscular HGB Conc 33 % (30-34); Mean Corpuscular Volume 92 fl (79-97); Monocytes # (Auto) 0.6 K/mm3 (0.0-0.8); Monocytes % (Auto) 8.2 % (0.0-7.3); Red Blood Count 3.43 M/mm3 (3.65-5.03); Red Cell Distribution Width 16.5 % (13.2-15.2)
[2018-11-16] MEDS ORDERED: CATAPRES PO ONE (05:36)
[2018-11-16] MEDS ORDERED: CATAPRES ONE (05:40)
[2018-11-16 05:45] LABS: Platelet Count 157 K/mm3 (140-440)
[2018-11-16] MEDS ORDERED: IBUPROFEN PO ONE (05:50)
[2018-11-16] MEDS ORDERED: NACL 0.9% 1000 ML 1,000 ML IV ONE (06:10)
[2018-11-16 06:11] LABS: BUN/Creatinine Ratio TNR; Blood Urea Nitrogen TNR mg/dL (7-17)
[2018-11-16 06:12] LABS: Alanine Aminotransferase TNR units/L (7-56); Albumin TNR g/dL (3.9-5); Calcium TNR mg/dL (8.4-10.2); Hemolysis Index TNR
--- NOTE | 2018-11-16 06:15 | Emergency Department Report ---
ED General Adult HPI - General Chief complaint: Pain General Stated complaint: N/V Time Seen by Provider: 11/16/18 06:09 Source: patient, EMS Mode of arrival: Stretcher Limitations: Other - History of Present Illness Initial comments: This is a 28 year old female on dialysis with a history of multiple admissions to this facility. She additionally has a history of heart failure, hypertension, migraines, seizures, other (chronic pain syndrome). She complains of diffuse pain involving her entire body. She does have significant chronic pain syndrome. She reported to this facility and was found to have a temperature of 102.3 and a heart rate of 131. She was presumed to be at significant risk of sepsis. She was treated with intravenous antibiotics. She had frequent complaints of pain and requests for pain medication. Despite complaining of total body pain she stated "I think it's my gallstone". He did not have any focal right upper quadrant pain. She is a very poor and limited historian and quite uncooperative. It took will requests to get the patient to even roll over to obtain a history or even exam her. The patient was seen at [facility] she states last night with "the same problem". No further information is available to me at this time. Location: abdomen, upper extremity, lower extremity Radiation: non-radiation Quality: aching Improves with: cold therapy Worsens with: none Associated Symptoms: other (was unaware of fever) - Related Data Home Medications Medication Instructions Recorded Confirmed Last Taken Clonidine HCl [Catapres] 0.3 mg PO TID 08/11/18 09/11/18 Unknown Labetalol [Normodyne TAB] 200 mg PO TID 08/11/18 09/12/18 Unknown Losartan [Cozaar] 100 mg PO QDAY 08/11/18 09/11/18 Unknown Sertraline [Zoloft] 25 mg PO QDAY 08/11/18 09/11/18 Unknown hydrALAZINE [Apresoline TAB] 100 mg PO TID 08/11/18 09/11/18 Unknown Previous Rx's Medication Instructions Recorded Last Taken Type Furosemide [Lasix] 80 mg PO QDAY #30 tablet 04/23/18 Unknown Rx Albuterol Sulfate [Proair 2 puff IH Q4H PRN #1 pump 07/15/18 Unknown Rx Respiclick] Hydroxychloroquine [Plaquenil] 200 mg PO QDAY #30 tablet 07/24/18 Unknown Rx HYDROcodone/APAP 10-325 [Ecru 1 each PO Q4HR PRN #7 tablet 08/14/18 Unknown Rx 10-325 mg TAB] Phenytoin [Dilantin] 100 mg PO TID #90 capsule.er 08/19/18 Unknown Rx levETIRAcetam [Keppra TAB] 1,000 mg PO BID #60 tablet 08/19/18 Unknown Rx Amoxicillin/Potassium Clav 1 each PO BID #10 tablet 09/08/18 Unknown Rx [Augmentin 500-125 Tablet] Prednisone [predniSONE 10 mg 10 mg PO .TAPER #1 tab.ds.pk 09/08/18 Unknown Rx (6-Day Pack, 21 Tabs)] Dicyclomine [Bentyl] 10 mg PO QID PRN #20 capsule 09/10/18 Unknown Rx Ondansetron [Zofran Odt] 4 mg PO Q8HR PRN #20 tab.rapdis 09/10/18 Unknown Rx Methocarbamol [Robaxin-750] 750 mg PO Q6HR PRN #10 tablet 11/12/18 Unknown Rx Allergies Allergy/AdvReac Type Severity Reaction Status Date / Time acetaminophen [From Percocet] Allergy Itching Verified 04/21/18 08:28 lisinopril Allergy Swelling Verified 04/21/18 08:28 metoprolol Allergy Unknown Verified 04/21/18 08:28 oxycodone [From Percocet] Allergy Itching Verified 04/21/18 08:28 oxycodone HCl [From Percocet] AdvReac Unknown Verified 04/21/18 08:28 ED Review of Systems ROS: Stated complaint: N/V Other details as noted in HPI Comment: Unobtainable due to pts medical conditions (and poor cooperation) ED Past Medical Hx - Past Medical History Previous Medical History?: Yes Hx Hypertension: Yes Hx Congestive Heart Failure: Yes Hx Diabetes: No Hx Renal Disease: Yes (Tues, Thurs, Sat) Hx Arthritis: Yes Hx Headaches / Migraines: Yes Hx Seizures: Yes (2 seizures last month) Hx Asthma: Yes Hx COPD: No Hx HIV: No Additional medical history: Lupus - Surgical History Past Surgical History?: Yes Additional Surgical History: RIGHT ARM graft - Social History Smoking Status: Never Smoker Substance Use Type: None - Medications Home Medications: Home Medications Medication Instructions Recorded Confirmed Last Taken Type Furosemide [Lasix] 80 mg PO QDAY #30 tablet 04/23/18 09/11/18 Unknown Rx Albuterol Sulfate [Proair 2 puff IH Q4H PRN #1 pump 07/15/18 09/12/18 Unknown Rx Respiclick] Hydroxychloroquine [Plaquenil] 200 mg PO QDAY #30 tablet 07/24/18 09/11/18 Unknown Rx Clonidine HCl [Catapres] 0.3 mg PO TID 08/11/18 09/11/18 Unknown History Labetalol [Normodyne TAB] 200 mg PO TID 08/11/18 09/12/18 Unknown History Losartan [Cozaar] 100 mg PO QDAY 08/11/18 09/11/18 Unknown History Sertraline [Zoloft] 25 mg PO QDAY 08/11/18 09/11/18 Unknown History hydrALAZINE [Apresoline TAB] 100 mg PO TID 08/11/18 09/11/18 Unknown History HYDROcodone/APAP 10-325 [Ecru 1 each PO Q4HR PRN #7 tablet 08/14/18 09/12/18 Unknown Rx 10-325 mg TAB] Phenytoin [Dilantin] 100 mg PO TID #90 capsule.er 08/19/18 09/11/18 Unknown Rx levETIRAcetam [Keppra TAB] 1,000 mg PO BID #60 tablet 08/19/18 09/12/18 Unknown Rx Amoxicillin/Potassium Clav 1 each PO BID #10 tablet 09/08/18 09/12/18 Unknown Rx [Augmentin 500-125 Tablet] Prednisone [predniSONE 10 mg 10 mg PO .TAPER #1 tab.ds.pk 09/08/18 09/11/18 Unknown Rx (6-Day Pack, 21 Tabs)] Dicyclomine [Bentyl] 10 mg PO QID PRN #20 capsule 09/10/18 Unknown Rx Ondansetron [Zofran Odt] 4 mg PO Q8HR PRN #20 tab.rapdis 09/10/18 Unknown Rx Methocarbamol [Robaxin-750] 750 mg PO Q6HR PRN #10 tablet 11/12/18 Unknown Rx ED Physical Exam - General Limitations: Other (poorly cooperative) General appearance: in distress (requesting pain medication) - Head Head exam: Present: atraumatic - Eye Eye exam: Absent: scleral icterus - ENT ENT exam: Present: mucous membranes dry (somewhat) - Neck Neck exam: Absent: tenderness, meningismus - Respiratory Respiratory exam: Present: normal lung sounds bilaterally. Absent: respiratory distress - Cardiovascular Cardiovascular Exam: Present: tachycardia. Absent: systolic murmur, diastolic murmur - GI/Abdominal GI/Abdominal exam: Present: soft, normal bowel sounds. Absent: distended, tenderness, guarding, rebound, rigid - Extremities Exam Extremities exam: Present: other (functioning fistula.). Absent: calf tenderness - Back Exam Back exam: Present: other (unable to get patient cooperation) - Neurological Exam Neurological exam: Present: CN II-XII intact. Absent: motor sensory deficit - Psychiatric Psychiatric exam: Present: agitated, anxious - Skin Skin exam: Present: warm, dry, intact, normal color. Absent: rash ED Course Vital Signs 11/16/18 11/16/18 11/16/18 04:43 04:46 04:50 Temperature 100 F H Pulse Rate 140 H 125 H 125 H Respiratory 28 H 17 20 Rate Blood Pressure 180/112 180/112 Blood Pressure 180/112 165/103 [Left] O2 Sat by Pulse 96 97 98 Oximetry 11/16/18 11/16/18 11/16/18 05:00 05:16 05:30 Temperature Pulse Rate 130 H 135 H 132 H Respiratory 22 20 23 Rate Blood Pressure 165/103 165/103 165/103 Blood Pressure [Left] O2 Sat by Pulse 99 98 99 Oximetry 11/16/18 11/16/18 11/16/18 05:46 05:51 05:59 Temperature 102.3 F H Pulse Rate 128 H 131 H Respiratory 21 Rate Blood Pressure 165/103 174/112 Blood Pressure [Left] O2 Sat by Pulse 97 Oximetry 11/16/18 11/16/18 11/16/18 06:00 06:05 06:16 Temperature Pulse Rate 126 H 120 H Respiratory 13 20 19 Rate Blood Pressure 165/103 165/103 Blood Pressure [Left] O2 Sat by Pulse 100 99 Oximetry 11/16/18 11/16/18 11/16/18 06:30 06:46 07:00 Temperature Pulse Rate 137 H 128 H 121 H Respiratory 18 14 28 H Rate Blood Pressure 165/103 165/106 Blood Pressure [Left] O2 Sat by Pulse 96 95 96 Oximetry 11/16/18 07:07 Temperature 100.8 F H Pulse Rate Respiratory Rate Blood Pressure Blood Pressure [Left] O2 Sat by Pulse Oximetry - Reevaluation(s) Reevaluation #1: Patient was treated empirically with meropenem and vancomycin. She was admitted to the hospitalist service. Plain CT of her abdomen showed gallstones but no acute inflammatory process. I will enter an order for an ultrasound. However there was lack of clinical correlation with acute cholecystitis or any findings on CT thus far. Further care per hospitalist service. I'm going to leave further fluid resuscitation up to the hospitalist as the patient is a dialysis patient. Consult nephrology. Patient does not at this time will require emergent dialysis. Her last dialysis was on Friday. Her potassium is however mildly elevated. 11/16/18 10:08 ED Medical Decision Making - Lab Data Result diagrams: 11/16/18 05:22 11/16/18 07:48 Laboratory Results - last 24 hr 11/16/18 11/16/18 05:22 05:22 WBC 7.1 RBC 3.43 L Hgb 10.4 Hct 31.5 MCV 92 MCH 30 MCHC 33 RDW 16.5 H Plt Count 157 Lymph % (Auto) 6.5 L Hudson % (Auto) 8.2 H Eos % (Auto) 0.5 Baso % (Auto) 0.5 Lymph # 0.5 L Hudson # 0.6 Eos # 0.0 Baso # 0.0 Seg Neutrophils % 84.3 H Seg Neutrophils # 6.0 Sodium TNR Potassium TNR Chloride TNR Carbon Dioxide TNR Anion Gap TNR BUN TNR Creatinine TNR Estimated GFR TNR BUN/Creatinine Ratio TNR Glucose TNR Calcium TNR Total Bilirubin TNR AST TNR ALT TNR Alkaline Phosphatase TNR Total Protein TNR Albumin TNR Albumin/Globulin Ratio TNR Laboratory Results - last 24 hr 11/16/18 11/16/18 11/16/18 05:22 05:22 06:09 WBC 7.1 RBC 3.43 L Hgb 10.4 Hct 31.5 MCV 92 MCH 30 MCHC 33 RDW 16.5 H Plt Count 157 Lymph % (Auto) 6.5 L Hudson % (Auto) 8.2 H Eos % (Auto) 0.5 Baso % (Auto) 0.5 Lymph # 0.5 L Hudson # 0.6 Eos # 0.0 Baso # 0.0 Seg Neutrophils % 84.3 H Seg Neutrophils # 6.0 PT 15.7 H INR 1.17 H APTT 28.3 VBG pH Sodium TNR Potassium TNR Chloride TNR Carbon Dioxide TNR Anion Gap TNR BUN TNR Creatinine TNR Estimated GFR TNR BUN/Creatinine Ratio TNR Glucose TNR Lactic Acid Calcium TNR Phosphorus Total Bilirubin TNR Direct Bilirubin Indirect Bilirubin AST TNR ALT TNR Alkaline Phosphatase TNR Total Creatine Kinase CK-MB (CK-2) CK-MB (CK-2) Rel Index Troponin T Total Protein TNR Albumin TNR Albumin/Globulin Ratio TNR Triglycerides Cholesterol LDL Cholesterol Direct HDL Cholesterol Cholesterol/HDL Ratio [facility] [place], Qual Blood Type Antibody Screen 11/16/18 11/16/18 11/16/18 06:09 06:09 07:48 WBC RBC Hgb Hct MCV MCH MCHC RDW Plt Count Lymph % (Auto) Hudson % (Auto) Eos % (Auto) Baso % (Auto) Lymph # Hudson # Eos # Baso # Seg Neutrophils % Seg Neutrophils # PT INR APTT VBG pH 7.397 Sodium Potassium Chloride Carbon Dioxide Anion Gap BUN Creatinine Estimated GFR BUN/Creatinine Ratio Glucose Lactic Acid 1.10 0.90 Calcium Phosphorus Total Bilirubin Direct Bilirubin Indirect Bilirubin AST ALT Alkaline Phosphatase Total Creatine Kinase CK-MB (CK-2) CK-MB (CK-2) Rel Index Troponin T Total Protein Albumin Albumin/Globulin Ratio Triglycerides Cholesterol LDL Cholesterol Direct HDL Cholesterol Cholesterol/HDL Ratio [facility] Blood Type Antibody Screen 11/16/18 11/16/18 11/16/18 07:48 07:48 07:48 WBC RBC Hgb Hct MCV MCH MCHC RDW Plt Count Lymph % (Auto) Hudson % (Auto) Eos % (Auto) Baso % (Auto) Lymph # Hudson # Eos # Baso # Seg Neutrophils % Seg Neutrophils # PT INR APTT VBG pH Sodium 134 L Potassium 5.4 H Chloride 102.6 Carbon Dioxide 20 L Anion Gap 17 BUN 36 H Creatinine 7.3 H Estimated GFR 8 BUN/Creatinine Ratio 5 Glucose 85 Lactic Acid Calcium 8.8 Phosphorus 5.00 H Total Bilirubin 0.20 Direct Bilirubin < 0.2 Indirect Bilirubin 0.0 AST 12 ALT < 5 L Alkaline Phosphatase 97 Total Creatine Kinase 105 CK-MB (CK-2) 1.1 CK-MB (CK-2) Rel Index 1.0 Troponin T 0.065 H Total Protein 7.4 Albumin 2.9 L Albumin/Globulin Ratio 0.6 Triglycerides 77 Cholesterol 112 LDL Cholesterol Direct 57 HDL Cholesterol 47 Cholesterol/HDL Ratio 2.38 HCG, Qual Blood Type Antibody Screen 11/16/18 11/16/18 07:48 07:48 WBC RBC Hgb Hct MCV MCH MCHC RDW Plt Count Lymph % (Auto) Hudson % (Auto) Eos % (Auto) Baso % (Auto) Lymph # Hudson # Eos # Baso # Seg Neutrophils % Seg Neutrophils # PT INR APTT VBG pH Sodium Potassium Chloride Carbon Dioxide Anion Gap BUN Creatinine Estimated GFR BUN/Creatinine Ratio Glucose Lactic Acid Calcium Phosphorus Total Bilirubin Direct Bilirubin Indirect Bilirubin AST ALT Alkaline Phosphatase Total Creatine Kinase CK-MB (CK-2) CK-MB (CK-2) Rel Index Troponin T Total Protein Albumin Albumin/Globulin Ratio Triglycerides Cholesterol LDL Cholesterol Direct HDL Cholesterol Cholesterol/HDL Ratio HCG, Qual Negative Blood Type O POSITIVE Antibody Screen Positive - EKG Data -: EKG Interpreted by Id EKG shows normal: sinus rhythm Rate: tachycardia - EKG Data Interpretation: nonspecific ST-T wave brandee - Radiology Data Radiology results: report reviewed (chest x-ray with pulmonary venous conges tion, CT gallstone no acute inflammatory process) Critical Care Time: Yes Critical care time in (mins) excluding proc time.: 60 Critical care attestation.: If time is entered above; I have spent that time in minutes in the direct care of this critically ill patient, excluding procedure time. ED Disposition Clinical Impression: ESRD (end stage renal disease) Fever Qualifiers: Fever type: unspecified Qualified Code(s): R50.9 - Fever, unspecified Sepsis Qualifiers: Sepsis type: sepsis due to unspecified organism Qualified Code(s): A41.9 - Sepsis, unspecified organism Cardiomyopathy Qualifiers: Cardiomyopathy type: unspecified Qualified Code(s): I42.9 - Cardiomyopathy, unspecified Disposition: OP ADMIT IP TO THIS HOSP Is pt being admited?: Yes Does the pt Need Aspirin: Yes Condition: Stable Time of Disposition: 10:09
[2018-11-16] MEDS ORDERED: DILAUDID IV ONE (06:22)
[2018-11-16] MEDS ORDERED: BENADRYL IV ONE (06:22)
[2018-11-16] MEDS ORDERED: ZOFRAN IV ONE (06:22)
[2018-11-16] MEDS ORDERED: ZOFRAN ONE (06:25)
[2018-11-16] MEDS ORDERED: DILAUDID ONE (06:25)
[2018-11-16] MEDS ORDERED: BENADRYL ONE (06:25)
[2018-11-16 06:28] LABS: INR 1.17 (0.87-1.13); Partial Thromboplastin Time 28.3 Sec. (24.2-36.6)
[2018-11-16] MEDS ORDERED: VANCOMYCIN/NS 1 GM/250 ML 1 GM/250 ML BAG IV ONE ×2 (07:00→17:22)
[2018-11-16] MEDS ORDERED: VANCOMYCIN PHARMACY TO DOSE IV SCH ×2 (07:00→18:00)
[2018-11-16] MEDS ORDERED: MERREM 1,000 MG in NACL 0.9% 100 ML IV ONE (07:00)
--- NOTE | 2018-11-16 07:48 | History and Physical Report ---
History of Present Illness Date of examination: 11/16/18 Date of admission: 11/16/18 Chief complaint: Nausea and vomiting and fever History of present illness: 28-year-old -[place] female patient with multiple medical problems well known to service, noncompliant with medications presented to emergency room with nausea and vomiting and fever of one day duration. Patient reports that she has fever of 102.3F and he feels a tachycardic Patient complains of headache dizziness mild nausea Patient received 1 dose of vancomycin and meropenem in the ED The time of my evaluation patient denies any chest pain mild nausea no vomiting Claims compliance with her dialysis Past History Past Medical History: ESRD, heart failure, hypertension, migraines, seizures, other (chronic pain syndrome) Past Surgical History: Other (AV graft) Social history: other (cocaine) Medications and Allergies Allergies Allergy/AdvReac Type Severity Reaction Status Date / Time acetaminophen [From Percocet] Allergy Itching Verified 04/21/18 08:28 lisinopril Allergy Swelling Verified 04/21/18 08:28 metoprolol Allergy Unknown Verified 04/21/18 08:28 oxycodone [From Percocet] Allergy Itching Verified 04/21/18 08:28 oxycodone HCl [From Percocet] AdvReac Unknown Verified 04/21/18 08:28 Home Medications Medication Instructions Recorded Confirmed Last Taken Type Furosemide [Lasix] 80 mg PO QDAY #30 tablet 04/23/18 09/11/18 Unknown Rx Albuterol Sulfate [Proair 2 puff IH Q4H PRN #1 pump 07/15/18 09/12/18 Unknown Rx Respiclick] Hydroxychloroquine [Plaquenil] 200 mg PO QDAY #30 tablet 07/24/18 09/11/18 Unknown Rx Clonidine HCl [Catapres] 0.3 mg PO TID 08/11/18 09/11/18 Unknown History Labetalol [Normodyne TAB] 200 mg PO TID 08/11/18 09/12/18 Unknown History Losartan [Cozaar] 100 mg PO QDAY 08/11/18 09/11/18 Unknown History Sertraline [Zoloft] 25 mg PO QDAY 08/11/18 09/11/18 Unknown History hydrALAZINE [Apresoline TAB] 100 mg PO TID 08/11/18 09/11/18 Unknown History HYDROcodone/APAP 10-325 [[place] 1 each PO Q4HR PRN #7 tablet 08/14/18 09/12/18 Unknown Rx 10-325 mg TAB] Phenytoin [Dilantin] 100 mg PO TID #90 capsule.er 08/19/18 09/11/18 Unknown Rx levETIRAcetam [Keppra TAB] 1,000 mg PO BID #60 tablet 08/19/18 09/12/18 Unknown Rx Amoxicillin/Potassium Clav 1 each PO BID #10 tablet 09/08/18 09/12/18 Unknown Rx [Augmentin 500-125 Tablet] Prednisone [predniSONE 10 mg 10 mg PO .TAPER #1 tab.ds.pk 09/08/18 09/11/18 Unknown Rx (6-Day Pack, 21 Tabs)] Dicyclomine [Bentyl] 10 mg PO QID PRN #20 capsule 09/10/18 Unknown Rx Ondansetron [Zofran Odt] 4 mg PO Q8HR PRN #20 tab.rapdis 09/10/18 Unknown Rx Methocarbamol [Robaxin-750] 750 mg PO Q6HR PRN #10 tablet 11/12/18 Unknown Rx Active Meds: Active Medications Sodium Chloride (Nacl 0.9% 1000 Ml) 1,000 mls @ 75 mls/hr IV ONCE ONE Stop: 11/16/18 19:29 Meropenem 1,000 mg/ Sodium (Chloride) 100 mls @ 100 mls/hr IV ONCE ONE Stop: 11/16/18 07:59 Vancomycin HCl (Vancomycin/Ns 1 Gm/250 Ml) 1 gm in 250 mls @ 250 mls/hr IV ONCE ONE Stop: 11/16/18 07:59 Review of Systems Constitutional: fever, fatigue, weakness Ears, nose, mouth and throat: no nasal congestion, no nasal discharge Cardiovascular: no chest pain, no orthopnea, no palpitations Respiratory: no cough with sputum, no shortness of breath Gastrointestinal: nausea, vomiting, no abdominal pain Genitourinary Female: no pelvic pain, no flank pain Musculoskeletal: myalgias, no arthritis Integumentary: no rash, no lesions Neurological: weakness, no seizures, no syncope Psychiatric: no anxiety, no depression Endocrine: no cold intolerance, no heat intolerance Hematologic/Lymphatic: no easy bruising, no easy bleeding Allergic/Immunologic: no urticaria, no allergic rhinitis Exam - Constitutional Vitals: Temp Pulse Resp BP Pulse Ox 100.8 F H 121 H 28 H 165/106 96 11/16/18 07:07 11/16/18 07:00 11/16/18 07:00 11/16/18 07:00 11/16/18 07:00 General appearance: Present: mild distress, well-nourished - EENT Eyes: Present: PERRL, EOM intact - Neck Neck: Present: supple, normal ROM - Respiratory Respiratory effort: normal Respiratory: bilateral: diminished, negative: rales, rhonchi, wheezing - Cardiovascular Rhythm: regular Heart Sounds: Present: S1 & S2 - Extremities Extremities: no ischemia, No edema - Abdominal General gastrointestinal: Present: soft, non-tender, non-distended, normal bowel sounds - Integumentary Integumentary: Present: clear, warm - Musculoskeletal Musculoskeletal: strength equal bilaterally - Psychiatric Psychiatric: appropriate mood/affect, cooperative - Neurologic Neurologic: CNII-XII intact, moves all extremities Results - Labs CBC & Chem 7: 11/16/18 05:22 11/16/18 07:48 Labs: Abnormal lab results 11/16/18 11/16/18 Range/Units 05:22 06:09 RBC 3.43 L (3.65-5.03) M/mm3 RDW 16.5 H (13.2-15.2) % Lymph % (Auto) 6.5 L (13.4-35.0) % [place] % (Auto) 8.2 H (0.0-7.3) % Lymph # 0.5 L (1.2-5.4) K/mm3 Seg Neutrophils % 84.3 H (40.0-70.0) % PT 15.7 H (12.2-14.9) Sec. INR 1.17 H (0.87-1.13) Assessment and Plan --Febrile illness/sepsis; Empiric antibiotics, renal dose, cultures, supportive care Consider ID evaluation if needed --History of asthma; oxygen titrate O2 sats to more than 90% Nebulizers and steroids as needed --End-stage renal disease on hemodialysis; nephrology consult HD per schedule TTS --Intractable nausea vomiting/acute gastritis; Protonix, CT abdomen and pelvis; no acute abnormalities noted Incidental findings --Hypertension; moderate control, continue current antihypertensives When necessary medications --History of seizure disorder; seizure precautions Resume antiepileptic medications, supportive care --History of lupus; continue Plaquenil Supportive care --Chronic pain syndrome; on multiple pain medications at home Continue supportive care --DVT prophylaxis; heparin renal dose Closely monitor the patient and adjust management as needed Plan monitor the patient closely and adjust the management as needed Plan of care is reviewed with the patient and her nurse I spent 50 minutes coordinating this admission Disposition; follow cultures, consult ID if needed
--- NOTE | 2018-11-16 07:48 | XRay Report ---
AP CHEST: HISTORY: Possible sepsis Moderate cardiomegaly end pulmonary venous congestion. The lungs are grossly clear. No large infiltrate, pleural effusion or pneumothorax is identified. IMPRESSION: Cardiomegaly and pulmonary venous congestion.
[2018-11-16] MEDS ORDERED: NON-FORMULARY (Albuterol Sulfate [Proair Respiclick] 2 PUFF) IH PRN (07:51)
[2018-11-16] MEDS ORDERED: NON-FORMULARY (Clonidine Hcl [Catapres] 0.3 MG) PO SCH (08:00)
[2018-11-16 08:26] LABS: Creatine Kinase MB 1.1 ng/mL (0.0-4.0)
[2018-11-16 08:28] LABS: Calcium 8.8 mg/dL (8.4-10.2)
[2018-11-16 08:30] LABS: Albumin 2.9 g/dL (3.9-5)
[2018-11-16 08:32] LABS: Alanine Aminotransferase < 5 units/L (7-56); Bilirubin,Direct < 0.2 mg/dL (0-0.2)
[2018-11-16 08:37] LABS: Chol/HDL Ratio 2.38 %
--- NOTE | 2018-11-16 09:19 | Cat Scan Report ---
CT ABDOMEN PELVIS WITHOUT CONTRAST: HISTORY: abdominal pain. COMPARISON: 09/10/18. TECHNIQUE: Helical CT in 1.25mm intervals without IV contrast. Sagittal and coronal reconstructions. FINDINGS: Lung bases: Moderate cardiomegaly is stable. The visualized lung bases are adequately aerated. There is trace right pleural fluid. Liver: Normal. Biliary system: Solitary 5 mm gallstone is identified. No biliary dilatation. Pancreas: Normal. Spleen: Normal. Kidneys/ureters/bladder: Mild bilateral renal atrophy is present suggesting chronic renal parenchymal disease. Adrenal glands: Normal. Aorta: Normal. Intestines: Unremarkable given no oral contrast was administered. Appendix: Not confidently identified. Pelvic viscera: 3.0 cm right ovarian cyst is unchanged. There appears to be a new 1.9 cm left adnexal cyst. The uterus is grossly normal. Ascites: Small pelvic ascites. Adenopathy: None. Musculoskeletal: Intact. IMPRESSION: No acute inflammatory process is identified. Cardiomegaly. Trace right pleural fluid. Chronic renal parenchymal disease. Gallstone. Bilateral ovarian cysts as described. Small pelvic ascites.
[2018-11-16] MEDS: DILAUDID IV PRN ×2 (10:00→19:04)
[2018-11-16] MEDS ORDERED: NON-FORMULARY (Losartan [Cozaar] 100 MG) PO SCH (10:00)
[2018-11-16] MEDS ORDERED: NON-FORMULARY (Furosemide [Lasix] 80 MG) PO SCH (10:00)
[2018-11-16] MEDS ORDERED: PROVENTIL IH PRN (10:19)
[2018-11-16] MEDS: APRESOLINE PO SCH ×3 (10:21→21:02)
[2018-11-16] MEDS: NORMODYNE PO SCH ×3 (10:21→21:00)
[2018-11-16] MEDS: DILANTIN PO SCH ×3 (10:21→21:02)
[2018-11-16] MEDS: KEPPRA PO SCH ×2 (10:22→21:00)
[2018-11-16] MEDS: PLAQUENIL PO SCH (10:22)
[2018-11-16] MEDS: ZOLOFT PO SCH (10:22)
[2018-11-16] MEDS: COZAAR PO SCH (10:22)
[2018-11-16] MEDS: LASIX PO SCH (13:43)
[2018-11-16] MEDS: CATAPRES PO SCH ×2 (13:43→21:00)
[2018-11-16] MEDS ORDERED: APRESOLINE IV PRN (17:35)
[2018-11-16] MEDS ORDERED: NACL 0.9% IV SCH (22:00)
[2018-11-16] MEDS ORDERED: ZOSYN IV SCH (22:00)
[2018-11-17] MEDS: DILAUDID IV PRN ×3 (04:30→21:51)
[2018-11-17] MEDS: COZAAR PO SCH (08:32)
[2018-11-17] MEDS: CATAPRES PO SCH ×3 (08:33→21:52)
[2018-11-17] MEDS: NORMODYNE PO SCH ×3 (08:33→21:53)
[2018-11-17] MEDS: DILANTIN PO SCH ×3 (08:34→21:52)
[2018-11-17] MEDS: APRESOLINE PO SCH ×3 (08:34→21:52)
[2018-11-17] MEDS ORDERED: NACL 0.9% 100 ML IV PRN ×2 (09:45→15:53)
--- NOTE | 2018-11-17 09:45 | Consultation ---
History of Present Illness - History of Present Illness Thank you for the consultation ! Patient was evaluated today My assessment and plan are as follows; End-stage renal disease: Patient will continue with hemodialysis, monitor dial ysis related labs, chronically noncompliant patient admitted with, nausea and vomiting now also had fever and tachycardia Patient has pulmonary vascular congestion on 1+ edema her normal dialysis days are Friday, and will continue with the same schedule, compliance with fluid and sodium appears to be doubtful Chest x-ray shows evidence of pulmonary vascular congestion, CAT scan obtained shows, no significant finding that would explain her fever Patient has been currently placed on antibiotic will need blood culture as well as infectious disease evaluation Admitted with fever current blood cultures negative continue with antibiotic possibly consider infectious disease evaluation as well due to dialysis status Anemia in end-stage renal disease: Monitor hemoglobin and hematocrit, erythropoietin as needed Patient has had mild hyperkalemia: To monitor pending lab if it is still high may need dialysis Secondary hyperparathyroidism periodically check phosphorus and PTH level Hypertension and volume: Patient does appear to have 1+ edema currently her blood pressure appears to be stable relatively Malnutrition risk: High please consider high protein diet as well as nutrition follow-up, patient needs at least 1.5 g protein per KG body weight As of this admission her hemoglobin is 10.4 white cell count normal sodium 134 potassium 5.4 Patient was adequately counseled and educated regarding multiple renal related issues. Prognosis remains guarded at this time All renal related questions were answered and simple Czech pertinent lab studies as well as imaging results were also discussed with patient We will continue to follow and make recommendations from renal standpoint. Thank you for the consultation Author: Ronni Freedman M.D. [facility], [address] [place] [address] Tel; [phone] Source of information: From patient History of present illness Patient is a 38-year-old -Maltese female who is currently dialysis dependent and is being dialyzed on Friday schedule she has been admitted here with fever. Patient is a very very poor historian and very difficult to give history, upon further questioning patient states that she has had some upper respiratory like symptoms and also was having some abdominal pain and diarrhea. During this admission here she was noted to have a fever of 102.3 with a heart rate of 131 and hence she was admitted for treatment of possible sepsis auscultation was placed for management of end-stage renal disease Past medical history significant for End-stage renal disease Anemia and end-stage renal disease Secondary hyperparathyroidism systemic lupus Seizure disorder Noncompliance Current allergies: Tylenol, (lisinopril metoprolol oxycodone Home and present medication: Reviewed Social history family history: Reviewed Review of system positive for mild upper respiratory symptom, nausea, diarrhea the last 2-3 days Patient stated that she went to [facility] and has had similar symptom for last 2-3 days All other review of systems negative , Physical examination Vitals: Reviewed General: No acute distress HEENT: Oral mucosa moist no pallor or icterus Neck: Supple without any JVD thyromegaly or nodular mass Chest: Clear to auscultation Heart: Regular rate and rhythm S1-S2 heard no S3-S4 Abdomen: Soft nontender, bowel sounds present no renal bruit no suprapubic masses no CVA tenderness noted Extremity: Minimal edema dry skin no peripheral cyanosis fistula has good thrill and bruit Endocrine: Thyroid not enlarged Psychiatric: No agitation and aggression noted Musculoskeletal: No joint effusion noted Labs and x-rays: Reviewed from this admission Past History Past Medical History: ESRD, heart failure, hypertension, migraines, seizures, other (chronic pain syndrome) Past Surgical History: Other (AV graft) Social history: other (cocaine) Medications and Allergies Allergies Allergy/AdvReac Type Severity Reaction Status Date / Time acetaminophen [From Percocet] Allergy Itching Verified 04/21/18 08:28 lisinopril Allergy Swelling Verified 04/21/18 08:28 metoprolol Allergy Unknown Verified 04/21/18 08:28 oxycodone [From Percocet] Allergy Itching Verified 04/21/18 08:28 oxycodone HCl [From Percocet] AdvReac Unknown Verified 04/21/18 08:28 Home Medications Medication Instructions Recorded Confirmed Last Taken Type Furosemide [Lasix] 80 mg PO QDAY #30 tablet 04/23/18 09/11/18 Unknown Rx Albuterol Sulfate [Proair 2 puff IH Q4H PRN #1 pump 07/15/18 09/12/18 Unknown Rx Respiclick] Hydroxychloroquine [Plaquenil] 200 mg PO QDAY #30 tablet 07/24/18 09/11/18 Unknown Rx Clonidine HCl [Catapres] 0.3 mg PO TID 08/11/18 09/11/18 Unknown History Labetalol [Normodyne TAB] 200 mg PO TID 08/11/18 09/12/18 Unknown History Losartan [Cozaar] 100 mg PO QDAY 08/11/18 09/11/18 Unknown History Sertraline [Zoloft] 25 mg PO QDAY 08/11/18 09/11/18 Unknown History hydrALAZINE [Apresoline TAB] 100 mg PO TID 08/11/18 09/11/18 Unknown History HYDROcodone/APAP 10-325 [[place] 1 each PO Q4HR PRN #7 tablet 08/14/18 09/12/18 Unknown Rx 10-325 mg TAB] Phenytoin [Dilantin] 100 mg PO TID #90 capsule.er 08/19/18 09/11/18 Unknown Rx levETIRAcetam [Keppra TAB] 1,000 mg PO BID #60 tablet 08/19/18 09/12/18 Unknown Rx Amoxicillin/Potassium Clav 1 each PO BID #10 tablet 09/08/18 09/12/18 Unknown Rx [Augmentin 500-125 Tablet] Prednisone [predniSONE 10 mg 10 mg PO .TAPER #1 tab.ds.pk 09/08/18 09/11/18 Unknown Rx (6-Day Pack, 21 Tabs)] Dicyclomine [Bentyl] 10 mg PO QID PRN #20 capsule 09/10/18 Unknown Rx Ondansetron [Zofran Odt] 4 mg PO Q8HR PRN #20 tab.rapdis 09/10/18 Unknown Rx Methocarbamol [Robaxin-750] 750 mg PO Q6HR PRN #10 tablet 11/12/18 Unknown Rx Active Meds: Active Medications Albuterol (Proventil) 2.5 mg IH Q4HRT PRN PRN Reason: Shortness Of Breath Clonidine HCl (Catapres) 0.3 mg PO TID [facility] Last Admin: 11/17/18 08:33 Dose: 0.3 mg Documented by: Furosemide (Lasix) 80 mg PO DAILY [facility] Last Admin: 11/16/18 13:43 Dose: 80 mg Documented by: Hydralazine HCl (Apresoline) 100 mg PO TID [facility] Last Admin: 11/17/18 08:34 Dose: 100 mg Documented by: Hydralazine HCl (Apresoline) 10 mg IV Q4HR PRN PRN Reason: Hypertension Hydromorphone HCl (Dilaudid) 0.5 mg IV Q8HR PRN PRN Reason: Pain , Severe (7-10) Last Admin: 11/17/18 04:30 Dose: 0.5 mg Documented by: Hydroxychloroquine Sulfate (Plaquenil) 200 mg PO QDAY [facility] Last Admin: 11/16/18 10:22 Dose: 200 mg Documented by: Piperacillin Sod/Tazobactam Sod (Zosyn/Ns 2.25 Gm/50ml) 2.25 gm in 50 mls @ 100 mls/hr IV Q8HR [facility] Labetalol HCl (Normodyne) 200 mg PO TID [facility] Last Admin: 11/17/18 08:33 Dose: 200 mg Documented by: Levetiracetam (Keppra) 1,000 mg PO BID [facility] Last Admin: 11/16/18 21:00 Dose: 1,000 mg Documented by: Losartan Potassium (Cozaar) 100 mg PO QDAY [facility] Last Admin: 11/17/18 08:32 Dose: 100 mg Documented by: Phenytoin (Dilantin) 100 mg PO TID [facility] Last Admin: 11/17/18 08:34 Dose: 100 mg Documented by: Sertraline HCl (Zoloft) 25 mg PO QDAY [facility] Last Admin: 11/16/18 10:22 Dose: 25 mg Documented by: Exam - Vital Signs Vital signs: Vital Signs Temp Pulse Resp BP Pulse Ox 100 F H 125 H 20 180/112 96 11/16/18 04:43 11/16/18 04:43 11/16/18 04:43 11/16/18 04:43 11/16/18 04:43 Results - Lab Results 11/17/18 16:02 11/17/18 16:02 Most recent lab results Calcium 8.8 mg/dL (8.4-10.2) 11/16/18 07:48 Phosphorus 5.00 mg/dL (2.5-4.5) H 11/16/18 07:48
[2018-11-17] MEDS: ZOLOFT PO SCH (10:52)
[2018-11-17] MEDS: PLAQUENIL PO SCH (10:52)
[2018-11-17] MEDS: KEPPRA PO SCH ×2 (10:52→21:52)
[2018-11-17] MEDS ORDERED: ZOSYN/NS 2.25 GM/50ML 2.25 GM/50 ML BAG IV SCH (14:00)
--- NOTE | 2018-11-17 14:47 | Progress Note ---
Assessment and Plan Assessment and plan: --Febrile illness to r/o SIRS vs sepsis; Empiric antibiotics, renal dose, cultures, supportive care Will consult ID --History of asthma; oxygen titrate O2 sats to more than 90% Nebulizers and steroids as needed --End-stage renal disease on hemodialysis; nephrology consult HD per schedule TTS --Intractable nausea vomiting/acute gastritis; Protonix, CT abdomen and pelvis; no acute abnormalities noted Incidental findings --Hypertension; moderate control, continue current antihypertensives When necessary medications --History of seizure disorder; seizure precautions Resume antiepileptic medications, supportive care --History of lupus; continue Plaquenil Supportive care --Chronic pain syndrome; on multiple pain medications at home Continue supportive care --DVT prophylaxis; heparin renal dose History Interval history: Fever, nausea, Vomiting No more fever today-had fever yesterday Hospitalist Physical - Physical exam Narrative exam: GEN: Not in acute distress, lying in bed HEENT: Normocephalic, atraumatic, Neck: supple, No JVD Lungs: Clear to auscultation bilat, no crackles, no wheeze Abd:soft, non tender, non distended, normal bowel sounds Ext: No edema, no clubbing, no cyanosis Neuro: lethargic, no focal signs Skin:No rash Psych: normal mood - Constitutional Vitals: Temp Pulse Resp BP Pulse Ox 98.9 F 88 18 128/80 100 11/17/18 07:46 11/17/18 11:00 11/17/18 07:46 11/17/18 10:52 11/17/18 08:59 General appearance: Present: well-nourished Results - Labs CBC & Chem 7: 11/17/18 16:02 11/17/18 16:02 Labs: Laboratory Last Values WBC 7.1 K/mm3 (4.5-11.0) 11/16/18 05:22 RBC 3.43 M/mm3 (3.65-5.03) L 11/16/18 05:22 Hgb 10.4 gm/dl (10.1-14.3) 11/16/18 05:22 Hct 31.5 % (30.3-42.9) 11/16/18 05:22 MCV 92 fl (79-97) 11/16/18 05:22 MCH 30 pg (28-32) 11/16/18 05:22 MCHC 33 % (30-34) 11/16/18 05:22 RDW 16.5 % (13.2-15.2) H 11/16/18 05:22 Plt Count 157 K/mm3 (140-440) 11/16/18 05:22 Lymph % (Auto) 6.5 % (13.4-35.0) L 11/16/18 05:22 [place] % (Auto) 8.2 % (0.0-7.3) H 11/16/18 05:22 Eos % (Auto) 0.5 % (0.0-4.3) 11/16/18 05:22 Baso % (Auto) 0.5 % (0.0-1.8) 11/16/18 05:22 Lymph # 0.5 K/mm3 (1.2-5.4) L 11/16/18 05:22 [place] # 0.6 K/mm3 (0.0-0.8) 11/16/18 05:22 Eos # 0.0 K/mm3 (0.0-0.4) 11/16/18 05:22 Baso # 0.0 K/mm3 (0.0-0.1) 11/16/18 05:22 Seg Neutrophils % 84.3 % (40.0-70.0) H 11/16/18 05:22 Seg Neutrophils # 6.0 K/mm3 (1.8-7.7) 11/16/18 05:22 PT 15.7 Sec. (12.2-14.9) H 11/16/18 06:09 INR 1.17 (0.87-1.13) H 11/16/18 06:09 APTT 28.3 Sec. (24.2-36.6) 11/16/18 06:09 VBG pH 7.397 (7.320-7.420) 11/16/18 06:09 Sodium 134 mmol/L (137-145) L 11/16/18 07:48 Potassium 5.4 mmol/L (3.6-5.0) H 11/16/18 07:48 Chloride 102.6 mmol/L (98-107) 11/16/18 07:48 Carbon Dioxide 20 mmol/L (22-30) L 11/16/18 07:48 Anion Gap 17 mmol/L 11/16/18 07:48 BUN 36 mg/dL (7-17) H 11/16/18 07:48 Creatinine 7.3 mg/dL (0.7-1.2) H 11/16/18 07:48 Estimated GFR 8 ml/min 11/16/18 07:48 BUN/Creatinine Ratio 5 % 11/16/18 07:48 Glucose 85 mg/dL (65-100) 11/16/18 07:48 Lactic Acid 0.90 mmol/L (0.7-2.0) 11/16/18 07:48 Calcium 8.8 mg/dL (8.4-10.2) 11/16/18 07:48 Phosphorus 5.00 mg/dL (2.5-4.5) H 11/16/18 07:48 Total Bilirubin 0.20 mg/dL (0.1-1.2) 11/16/18 07:48 Direct Bilirubin < 0.2 mg/dL (0-0.2) 11/16/18 07:48 Indirect Bilirubin 0.0 mg/dL 11/16/18 07:48 AST 12 units/L (5-40) 11/16/18 07:48 ALT < 5 units/L (7-56) L 11/16/18 07:48 Alkaline Phosphatase 97 units/L (35-129) 11/16/18 07:48 Total Creatine Kinase 105 units/L (30-135) 11/16/18 07:48 CK-MB (CK-2) 1.1 ng/mL (0.0-4.0) 11/16/18 07:48 CK-MB (CK-2) Rel Index 1.0 (0-4) 11/16/18 07:48 Troponin T 0.065 ng/mL (0.00-0.029) H 11/16/18 07:48 Total Protein 7.4 g/dL (6.3-8.2) 11/16/18 07:48 Albumin 2.9 g/dL (3.9-5) L 11/16/18 07:48 Albumin/Globulin Ratio 0.6 % 11/16/18 07:48 Triglycerides 77 mg/dL (2-149) 11/16/18 07:48 Cholesterol 112 mg/dL (50-199) 11/16/18 07:48 LDL Cholesterol Direct 57 mg/dL (50-130) 11/16/18 07:48 HDL Cholesterol 47 mg/dL (40-59) 11/16/18 07:48 Cholesterol/HDL Ratio 2.38 % 11/16/18 07:48 HCG, Qual Negative (Negative) 11/16/18 07:48 Blood Type O POSITIVE 11/16/18 07:48 Antibody Screen Positive 11/16/18 07:48 Antibody Identification Anti-Fya Anti-Fyb Anti-Jkb 11/16/18 07:48 Antibody Identification Anti-Fya Anti-Fyb Anti-Jkb 11/16/18 07:48 Antibody Identification Anti-Fya Anti-Fyb Anti-Jkb 11/16/18 07:48 Crossmatch See Detail 11/16/18 07:48
[2018-11-17 16:11] LABS: Hematocrit 29.2 % (30.3-42.9); Hemoglobin 10.1 gm/dl (10.1-14.3); Mean Corpuscular HGB Conc 35 % (30-34); Mean Corpuscular Volume 89 fl (79-97); Platelet Count 213 K/mm3 (140-440); Red Blood Count 3.26 M/mm3 (3.65-5.03); Red Cell Distribution Width 16.3 % (13.2-15.2)
[2018-11-17 16:31] LABS: Calcium 8.2 mg/dL (8.4-10.2)
[2018-11-17 16:57] LABS: Total Cells Counted 100
[2018-11-17 16:58] LABS: RBC Morphology Normal
--- NOTE | 2018-11-17 17:36 | Consultation ---
History of Present Illness - Reason for Consult Consult date: 11/17/18 Fevers in dialysis patient Requesting physician: EILEEN MARINELLI - History of Present Illness The patient is a 28-year-old female with lupus, ESRD on hemodialysis every Friday, heart failure, hypertension, migraines, multiple admissions in the past with history of noncompliance presented to the emergency room yesterday with complaints of fever and body aches. She had a CT abdomen and pelvis without contrast which did not reveal any evidence of acute infectious process. She was empirically started on IV antibiotics. Infectious diseases was consulted. Seen at dialysis. She is a poor historian. States she hasn't had a fever in a long time. Then when corrected, stated yes, I did have fever yesterday. Also reports some nausea, vomiting a few days ago for which she went to another hospital and was discharged with nausea meds. Complains of abdominal pain. Review of Systems: General: fevers + with bodyaches HEENT: no new visual disturbance Respiratory: No cough, sputum, hemoptysis or shortness of breath Cardiovascular: No chest pain, syncope Gastrointestinal: No nausea, vomiting or diarrhea at present Genitourinary: No dysuria or hematuria Musculoskeletal: No new or worsening neck pain or back pain Neurologic: No headaches, seizures Hematologic: No easy bruising or bleeding Endocrine: No night sweats or acute weight loss Skin: negative for rash, jaundice Psychiatric: No suicidal or homicidal ideation Past History Past Medical History: ESRD, heart failure, hypertension, migraines, seizures, other (chronic pain syndrome) Past Surgical History: Other (AV graft) Social history: other (cocaine) Medications and Allergies Allergies Allergy/AdvReac Type Severity Reaction Status Date / Time acetaminophen [From Percocet] Allergy Itching Verified 04/21/18 08:28 lisinopril Allergy Swelling Verified 04/21/18 08:28 metoprolol Allergy Unknown Verified 04/21/18 08:28 oxycodone [From Percocet] Allergy Itching Verified 04/21/18 08:28 oxycodone HCl [From Percocet] AdvReac Unknown Verified 04/21/18 08:28 Home Medications Medication Instructions Recorded Confirmed Last Taken Type RX: Furosemide [Lasix] 80 mg PO QDAY #30 tablet 04/23/18 09/11/18 Unknown Rx RX: Albuterol Sulfate [Proair 2 puff IH Q4H PRN #1 pump 07/15/18 09/12/18 Unknown Rx Respiclick] RX: Hydroxychloroquine [Plaquenil] 200 mg PO QDAY #30 tablet 07/24/18 09/11/18 Unknown Rx RX: Clonidine HCl [Catapres] 0.3 mg PO TID 08/11/18 09/11/18 Unknown History RX: Labetalol [Normodyne TAB] 200 mg PO TID 08/11/18 09/12/18 Unknown History RX: Losartan [Cozaar] 100 mg PO QDAY 08/11/18 09/11/18 Unknown History RX: Sertraline [Zoloft] 25 mg PO QDAY 08/11/18 09/11/18 Unknown History RX: hydrALAZINE [Apresoline TAB] 100 mg PO TID 08/11/18 09/11/18 Unknown History RX: HYDROcodone/APAP 10-325 [[place] 1 each PO Q4HR PRN #7 tablet 08/14/18 09/12/18 Unknown Rx 10-325 mg TAB] RX: Phenytoin [Dilantin] 100 mg PO TID #90 capsule.er 08/19/18 09/11/18 Unknown Rx RX: levETIRAcetam [Keppra TAB] 1,000 mg PO BID #60 tablet 08/19/18 09/12/18 Unknown Rx RX: Amoxicillin/Potassium Clav 1 each PO BID #10 tablet 09/08/18 09/12/18 Unknown Rx [Augmentin 500-125 Tablet] RX: Prednisone [predniSONE 10 mg 10 mg PO .TAPER #1 tab.ds.pk 09/08/18 09/11/18 Unknown Rx (6-Day Pack, 21 Tabs)] Dicyclomine [Bentyl] 10 mg PO QID PRN #20 capsule 09/10/18 Unknown Rx Ondansetron [Zofran Odt] 4 mg PO Q8HR PRN #20 tab.rapdis 09/10/18 Unknown Rx Methocarbamol [Robaxin-750] 750 mg PO Q6HR PRN #10 tablet 11/12/18 Unknown Rx Active Meds: Active Medications Albuterol (Proventil) 2.5 mg IH Q4HRT PRN PRN Reason: Shortness Of Breath Clonidine HCl (Catapres) 0.3 mg PO TID [facility] Last Admin: 11/17/18 15:06 Dose: Not Given Documented by: Diphenhydramine HCl (Benadryl) 25 mg IV ALYSSA PRN PRN Reason: Itching Furosemide (Lasix) 80 mg PO DAILY [facility] Last Admin: 11/16/18 13:43 Dose: 80 mg Documented by: Hydralazine HCl (Apresoline) 100 mg PO TID [facility] Last Admin: 11/17/18 15:06 Dose: Not Given Documented by: Hydralazine HCl (Apresoline) 10 mg IV Q4HR PRN PRN Reason: Hypertension Hydromorphone HCl (Dilaudid) 0.5 mg IV Q8HR PRN PRN Reason: Pain , Severe (7-10) Last Admin: 11/17/18 12:28 Dose: 0.5 mg Documented by: Hydroxychloroquine Sulfate (Plaquenil) 200 mg PO QDAY [facility] Last Admin: 11/17/18 10:52 Dose: 200 mg Documented by: Sodium Chloride (Nacl 0.9%) 100 mls @ 999 mls/hr IV ALYSSA PRN PRN Reason: Hypotension Sodium Chloride (Nacl 0.9%) 100 mls @ 999 mls/hr IV ALYSSA PRN PRN Reason: Hypotension Cefepime HCl (Maxipime/Ns 1 Gm/100 Ml) 1 gm in 100 mls @ 200 mls/hr IV QPM [facility]; Protocol Labetalol HCl (Normodyne) 200 mg PO TID [facility] Last Admin: 11/17/18 15:06 Dose: Not Given Documented by: Levetiracetam (Keppra) 1,000 mg PO BID [facility] Last Admin: 11/17/18 10:52 Dose: 1,000 mg Documented by: Losartan Potassium (Cozaar) 100 mg PO QDAY [facility] Last Admin: 11/17/18 08:32 Dose: 100 mg Documented by: Phenytoin (Dilantin) 100 mg PO TID [facility] Last Admin: 11/17/18 15:06 Dose: Not Given Documented by: Sertraline HCl (Zoloft) 25 mg PO QDAY [facility] Last Admin: 11/17/18 10:52 Dose: 25 mg Documented by: Physical Examination - Physical Exam Narrative exam: Physical Exam: Constitutional: Alert, cooperative. No acute distress Head, Ears, Nose: Normocephalic, atraumatic. External ears, nose normal Eyes: Conjunctivae/corneas clear. No icterus. No ptosis. Neck: Supple, no meningeal signs Oral: dentition fair, no thrush Cardiovascular: S1, S2 normal. Respiratory: Good air entry, clear to auscultation bilaterally GI: Soft, non-tender; bowel sounds normal. No peritoneal signs Musculoskeletal: No pedal edema, no cyanosis. Skin: No rash or abscess Hem/Lymphatic: No palpable cervical or supraclavicular nodes. No lymphangitis Psych: Mood ok. Affect normal Neurological: Awake, alert, oriented. No gross abnormality - Constitutional Vitals: Vital Signs Temp Pulse Resp BP Pulse Ox 98.7 F 88 18 141/98 100 11/17/18 13:23 11/17/18 11:00 11/17/18 13:23 11/17/18 13:23 11/17/18 08:59 Temperature -Last 24 Hours Temperature 98.7 F Temperature 98.9 F Temperature 98.0 F Temperature 98.0 F Results - Labs CBC & Chem 7: 11/17/18 16:02 11/17/18 16:02 Labs: Abnormal lab results 11/17/18 11/17/18 Range/Units 16:02 16:02 RBC 3.26 L (3.65-5.03) M/mm3 Hct 29.2 L (30.3-42.9) % MCHC 35 H (30-34) % RDW 16.3 H (13.2-15.2) % Seg Neuts % (Manual) 88.0 H (40.0-70.0) % Lymphocytes % (Manual) 5.0 L (13.4-35.0) % Lymphocytes # (Manual) 0.3 L (1.2-5.4) K/mm3 Sodium 133 L (137-145) mmol/L Potassium 5.4 H (3.6-5.0) mmol/L Chloride 95.8 L (98-107) mmol/L Carbon Dioxide 18 L (22-30) mmol/L BUN 56 H (7-17) mg/dL Creatinine 9.7 H (0.7-1.2) mg/dL Glucose 135 H (65-100) mg/dL Calcium 8.2 L (8.4-10.2) mg/dL - Imaging and Cardiology Chest x-ray: report reviewed, image reviewed (shows cardiomegaly, no obvious pneumonia) CT scan - abdomen: report reviewed, image reviewed (without contrast, no acute infectious source seen) Assessment and Plan Cultures: 11/16/2018 blood culture: Negative at 24 hours A/P: 28-year-old female with ESRD on hemodialysis every Friday, heart failure, hypertension, migraines, multiple admissions in the past with history of noncompliance admitted with: 1) Fevers and bodyaches: Without leukocytosis. Evaluate for influenza. We will also evaluate for bacteremia since she is a dialysis patient. Follow-up blood cultures. For now, continue IV cefepime and vancomycin renally adjusted. Fevers could also be from lupus flare. Will check C3, C4. 2) ESRD: On dialysis. Renally dose antibiotics. 3) Lupus: on plaquenil. Recs: Discontinue Zosyn Started IV cefepime 1 g every 24 hours Continue vancomycin IV post-HD, target predialysis level between 10-20 g/ml Influenza test ordered Will check C3, C4 d/w Dr. Melissa Echevarria MD [facility] C: [phone] O: [phone] F: [phone]
[2018-11-17] MEDS ORDERED: MAXIPIME/NS 1 GM/100 ML 1 GM/100 ML BAG IV SCH (18:00)
[2018-11-18] MEDS: DILAUDID IV PRN ×3 (06:21→23:45)
[2018-11-18] MEDS: BENADRYL IV PRN ×2 (09:07→18:52)
--- NOTE | 2018-11-18 09:50 | Progress Note ---
Subjective Interval history: Patient was seen today for follow-up on multiple renal related issues Events of this hospitalization noted She does feel better Fever has come down blood culture negative for last 48 hours Tolerated hemodialysis treatment fairly well Patient denies having any chest pain pressure or shortness of breath Vitals labs intake output medications were reviewed Social history: Reviewed Allergies: Reviewed Family history: Reviewed Physical examination HEENT: Oral mucosa moist no pallor or icterus Neck: Supple no JVD Chest: Clear to auscultation anteriorly CVS: Regular rate and rhythm S1 and S2 heard Abdomen: Soft nontender no suprapubic masses no organomegaly appreciable Extremity: Dry skin less than 1+ peripheral edema Musculoskeletal: No joint effusion noted in knees and ankle Neurological: Alert awake Dermatology: No petechial rashes Psychiatry: No evidence of any agitation and aggression noted Assessment and plan End-stage renal disease: Patient will continue with hemodialysis, monitor dialysis related labs Continue with hemodialysis treatment on Friday and Friday Admitted with fever cough abdominal pain, history of lupus Blood cultures currently negative for last 48 hours patient noted to be afebrile? Viral illness has lymphopenia normal white cell count hemoglobin 10.1 Mild hyperkalemia will do a follow-up labs today phosphorus was 5.0, Anemia in end-stage renal disease: Monitor hemoglobin and hematocrit, erythropoietin as needed Secondary hyperparathyroidism periodically check phosphorus and PTH level Hypertension and volume: , Adjust medications as needed, ultrafiltration as tolerated keep systolic blood pressure above 100 Malnutrition risk: High please consider high protein diet as well as nutrition follow-up, patient needs at least 1.5 g protein per KG body weight Patient was adequately counseled and educated regarding multiple renal related issues Pertinent lab findings were discussed with patient, patient does exhibit good understanding of renal issues We'll continue to follow and make recommendation from renal standpoint Objective - Vital Signs Vital signs: Vital Signs - 12hr 11/17/18 11/17/18 11/17/18 21:52 21:53 22:05 Temperature Pulse Rate 82 82 Respiratory Rate Blood Pressure 141/82 141/82 O2 Sat by Pulse 100 Oximetry 11/17/18 11/18/18 11/18/18 23:31 04:03 08:08 Temperature 98.7 F 98.5 F 98.7 F Pulse Rate 99 H 89 92 H Respiratory 16 16 20 Rate Blood Pressure 125/80 102/63 138/80 O2 Sat by Pulse 99 100 100 Oximetry - Lab 11/17/18 16:02 11/17/18 16:02 Most recent lab results Calcium 8.2 mg/dL (8.4-10.2) L 11/17/18 16:02 Phosphorus 5.00 mg/dL (2.5-4.5) H 11/16/18 07:48 Medications & Allergies - Medications Allergies/Adverse Reactions: Allergies acetaminophen [From Percocet] Allergy (Verified 04/21/18 08:28) Itching lisinopril Allergy (Verified 04/21/18 08:28) Swelling metoprolol Allergy (Verified 04/21/18 08:28) Unknown oxycodone [From Percocet] Allergy (Verified 04/21/18 08:28) Itching oxycodone HCl [From Percocet] Adverse Reaction (Verified 04/21/18 08:28) Unknown Home Medications: Home Medications Medication Instructions Recorded Confirmed Last Taken Type Furosemide [Lasix] 80 mg PO QDAY #30 tablet 04/23/18 09/11/18 Unknown Rx Albuterol Sulfate [Proair 2 puff IH Q4H PRN #1 pump 07/15/18 09/12/18 Unknown Rx Respiclick] Hydroxychloroquine [Plaquenil] 200 mg PO QDAY #30 tablet 07/24/18 09/11/18 Unknown Rx Clonidine HCl [Catapres] 0.3 mg PO TID 08/11/18 09/11/18 Unknown History Labetalol [Normodyne TAB] 200 mg PO TID 08/11/18 09/12/18 Unknown History Losartan [Cozaar] 100 mg PO QDAY 08/11/18 09/11/18 Unknown History Sertraline [Zoloft] 25 mg PO QDAY 08/11/18 09/11/18 Unknown History hydrALAZINE [Apresoline TAB] 100 mg PO TID 08/11/18 09/11/18 Unknown History HYDROcodone/APAP 10-325 [[place] 1 each PO Q4HR PRN #7 tablet 08/14/18 09/12/18 Unknown Rx 10-325 mg TAB] Phenytoin [Dilantin] 100 mg PO TID #90 capsule.er 08/19/18 09/11/18 Unknown Rx levETIRAcetam [Keppra TAB] 1,000 mg PO BID #60 tablet 08/19/18 09/12/18 Unknown Rx Amoxicillin/Potassium Clav 1 each PO BID #10 tablet 09/08/18 09/12/18 Unknown Rx [Augmentin 500-125 Tablet] Prednisone [predniSONE 10 mg 10 mg PO .TAPER #1 tab.ds.pk 09/08/18 09/11/18 Unknown Rx (6-Day Pack, 21 Tabs)] Dicyclomine [Bentyl] 10 mg PO QID PRN #20 capsule 09/10/18 Unknown Rx Ondansetron [Zofran Odt] 4 mg PO Q8HR PRN #20 tab.rapdis 09/10/18 Unknown Rx Methocarbamol [Robaxin-750] 750 mg PO Q6HR PRN #10 tablet 11/12/18 Unknown Rx Active Medications: Generic Name Dose Route Start Last Admin Trade Name Freq PRN Reason Stop Dose Admin Albuterol 2.5 mg 11/16/18 10:19 Proventil IH Q4HRT PRN Shortness Of Breath Clonidine HCl 0.3 mg 11/16/18 14:00 11/17/18 21:52 Catapres PO 0.3 mg TID FERNANDO Administration Diphenhydramine HCl 25 mg 11/17/18 15:53 11/18/18 09:07 Benadryl IV 25 mg ALYSSA PRN Administration Itching Furosemide 80 mg 11/16/18 10:00 11/16/18 13:43 Lasix PO 80 mg DAILY FERNANDO Administration Hydralazine HCl 100 mg 11/16/18 08:00 11/17/18 21:52 Apresoline PO 100 mg TID FERNANDO Administration Hydralazine HCl 10 mg 11/16/18 17:35 Apresoline IV Q4HR PRN Hypertension Hydromorphone HCl 0.5 mg 11/16/18 09:38 11/18/18 06:21 Dilaudid IV 0.5 mg Q8HR PRN Administration Pain , Severe (7-10) Hydroxychloroquine Sulfate 200 mg 11/16/18 10:00 11/17/18 10:52 Plaquenil PO 200 mg QDAY FERNANDO Administration Sodium Chloride 100 mls @ 999 mls/hr 11/17/18 09:45 Nacl 0.9% IV ALYSSA PRN Hypotension Sodium Chloride 100 mls @ 999 mls/hr 11/17/18 15:53 Nacl 0.9% IV ALYSSA PRN Hypotension Cefepime HCl 1 gm in 100 mls @ 200 mls/hr 11/17/18 18:00 Maxipime/Ns 1 Gm/100 Ml IV QPM [facility] Protocol Labetalol HCl 200 mg 11/16/18 09:00 11/17/18 21:53 Normodyne PO 200 mg TID FERNANDO Administration Levetiracetam 1,000 mg 11/16/18 10:00 11/17/18 21:52 Keppra PO 1,000 mg BID FERNANDO Administration Losartan Potassium 100 mg 11/16/18 10:00 11/17/18 08:32 Cozaar PO 100 mg QDAY FERNANDO Administration Ondansetron HCl 4 mg 11/18/18 10:00 Zofran IV Q6H PRN Nausea And Vomiting Phenytoin 100 mg 11/16/18 09:00 11/17/18 21:52 Dilantin PO 100 mg TID FERNANDO Administration Sertraline HCl 25 mg 11/16/18 10:00 11/17/18 10:52 Zoloft PO 25 mg QDAY FERNANDO Administration
[2018-11-18] MEDS ORDERED: ZOFRAN IV PRN (10:00)
--- NOTE | 2018-11-18 10:58 | Progress Note ---
Assessment and Plan Cultures: 11/16/2018 blood culture: Negative at 48 hours A/P: 28-year-old female with ESRD on hemodialysis every Friday, heart failure, hypertension, migraines, multiple admissions in the past with history of noncompliance admitted with: 1) Fevers and bodyaches: Fevers resolved. Without leukocytosis. Evaluate for influenza. We will also evaluate for bacteremia since she is a dialysis patient. Follow-up blood cultures. For now, continue IV cefepime and vancomycin renally adjusted. Fevers could also be from lupus flare. Will check C3, C4. 2) ESRD: On dialysis. Renally dose antibiotics. 3) Lupus: on plaquenil. Recs: Discontnue Continue IV cefepime 1 g every 24 hours, D2 Discontnue Continue vancomycin IV post-HD, target predialysis level between 10- 20 g/ml Rapid FLU and PCR ordered, not collected f/u C3, C4 f/u blood cultures monitor off antibiotics [facility] M: [phone] O:[phone] Subjective Date of service: 11/18/18 Interval history: Patient seen and examined. Asleep, difficult to arouse., complained of generalized weakness and continued body aches. No fevers. Objective - Exam Narrative Exam: Constitutional: Asleep, difficult to arouse. Generalized weakness and body ache. Head, Ears, Nose: Normocephalic, atraumatic. External ears, nose normal Eyes: Conjunctivae/corneas clear. No icterus. No ptosis. Neck: Supple, no meningeal signs Oral: dentition fair, no thrush Cardiovascular: S1, S2 normal. Respiratory: Good air entry, clear to auscultation bilaterally GI: Soft, non-tender; bowel sounds normal. No peritoneal signs Musculoskeletal: No pedal edema, no cyanosis. Skin: No rash or abscess Hem/Lymphatic: No palpable cervical or supraclavicular nodes. No lymphangitis Psych: Mood ok. Affect flat Neurological: Asleep, difficult to arouse. - Constitutional Vitals: Vital Signs Temp Pulse Resp BP Pulse Ox 98.7 F 92 H 20 138/80 100 11/18/18 08:08 11/18/18 08:08 11/18/18 08:08 11/18/18 08:08 11/18/18 10:00 Temperature -Last 24 Hours Temperature 98.7 F Temperature 98.5 F Temperature 98.7 F Temperature 98.4 F Temperature 99.2 F Temperature 100.1 F Temperature 98.7 F - Labs CBC & Chem 7: 11/17/18 16:02 11/17/18 16:02 Labs: Abnormal lab results 11/17/18 11/17/18 Range/Units 16:02 16:02 RBC 3.26 L (3.65-5.03) M/mm3 Hct 29.2 L (30.3-42.9) % MCHC 35 H (30-34) % RDW 16.3 H (13.2-15.2) % Seg Neuts % (Manual) 88.0 H (40.0-70.0) % Lymphocytes % (Manual) 5.0 L (13.4-35.0) % Lymphocytes # (Manual) 0.3 L (1.2-5.4) K/mm3 Sodium 133 L (137-145) mmol/L Potassium 5.4 H (3.6-5.0) mmol/L Chloride 95.8 L (98-107) mmol/L Carbon Dioxide 18 L (22-30) mmol/L BUN 56 H (7-17) mg/dL Creatinine 9.7 H (0.7-1.2) mg/dL Glucose 135 H (65-100) mg/dL Calcium 8.2 L (8.4-10.2) mg/dL
[2018-11-18] MEDS: CATAPRES PO SCH ×3 (11:02→21:30)
[2018-11-18] MEDS: ZOLOFT PO SCH (11:02)
[2018-11-18] MEDS: COZAAR PO SCH ×2 (11:02→11:04)
[2018-11-18] MEDS: KEPPRA PO SCH ×2 (11:02→23:45)
[2018-11-18] MEDS: LASIX PO SCH ×2 (11:03→11:07)
[2018-11-18] MEDS: APRESOLINE PO SCH ×3 (11:03→21:31)
[2018-11-18] MEDS: PLAQUENIL PO SCH (11:04)
[2018-11-18] MEDS: DILANTIN PO SCH ×3 (11:04→21:34)
[2018-11-18] MEDS: NORMODYNE PO SCH ×3 (11:04→23:45)
--- NOTE | 2018-11-18 12:21 | Progress Note ---
Assessment and Plan Assessment and plan: --Febrile illness to r/o SIRS vs sepsis; Empiric antibiotics, renal dose, cultures, supportive care ID Physician consulted --History of asthma; oxygen titrate O2 sats to more than 90% Nebulizers and steroids as needed --End-stage renal disease on hemodialysis; nephrology consult HD per schedule TTS --Intractable nausea vomiting/acute gastritis; Protonix, CT abdomen and pelvis; no acute abnormalities noted Incidental findings Poss gastroparesis. start Reglan --Hypertension; moderate control, continue current antihypertensives When necessary medications --History of seizure disorder; seizure precautions Resume antiepileptic medications, supportive care --History of lupus; continue Plaquenil Supportive care --Chronic pain syndrome; on multiple pain medications at home Continue supportive care --DVT prophylaxis; heparin renal dose History Interval history: Fever, nausea, Vomiting Fever of 100.1 yesterday Nausea and vomiting today Hospitalist Physical - Physical exam Narrative exam: GEN: Not in acute distress, lying in bed HEENT: Normocephalic, atraumatic, Neck: supple, No JVD Lungs: Clear to auscultation bilat, no crackles, no wheeze Abd:soft, non tender, non distended, normal bowel sounds Ext: No edema, no clubbing, no cyanosis Neuro:Awake,alert, no focal signs Skin:No rash Psych: normal mood - Constitutional Vitals: Temp Pulse Resp BP Pulse Ox 98.7 F 92 H 20 138/80 100 11/18/18 08:08 11/18/18 08:08 11/18/18 08:08 11/18/18 08:08 11/18/18 10:00 General appearance: Present: well-nourished Results - Labs CBC & Chem 7: 11/17/18 16:02 11/17/18 16:02 Labs: Laboratory Last Values WBC 6.6 K/mm3 (4.5-11.0) 11/17/18 16:02 RBC 3.26 M/mm3 (3.65-5.03) L 11/17/18 16:02 Hgb 10.1 gm/dl (10.1-14.3) 11/17/18 16:02 Hct 29.2 % (30.3-42.9) L 11/17/18 16:02 MCV 89 fl (79-97) 11/17/18 16:02 MCH 31 pg (28-32) 11/17/18 16:02 MCHC 35 % (30-34) H 11/17/18 16:02 RDW 16.3 % (13.2-15.2) H 11/17/18 16:02 Plt Count 213 K/mm3 (140-440) 11/17/18 16:02 Lymph % (Auto) 6.5 % (13.4-35.0) L 11/16/18 05:22 [place] % (Auto) 8.2 % (0.0-7.3) H 11/16/18 05:22 Eos % (Auto) 0.5 % (0.0-4.3) 11/16/18 05:22 Baso % (Auto) 0.5 % (0.0-1.8) 11/16/18 05:22 Lymph # 0.5 K/mm3 (1.2-5.4) L 11/16/18 05:22 [place] # 0.6 K/mm3 (0.0-0.8) 11/16/18 05:22 Eos # 0.0 K/mm3 (0.0-0.4) 11/16/18 05:22 Baso # 0.0 K/mm3 (0.0-0.1) 11/16/18 05:22 Add Manual Diff Complete 11/17/18 16:02 Total Counted 100 11/17/18 16:02 Seg Neutrophils % Gas Meter Repairer 11/17/18 16:02 Seg Neuts % (Manual) 88.0 % (40.0-70.0) H 11/17/18 16:02 Band Neutrophils % 0 % 11/17/18 16:02 Lymphocytes % (Manual) 5.0 % (13.4-35.0) L 11/17/18 16:02 Reactive Lymphs % (Man) 0 % 11/17/18 16:02 Monocytes % (Manual) 5.0 % (0.0-7.3) 11/17/18 16:02 Eosinophils % (Manual) 1.0 % (0.0-4.3) 11/17/18 16:02 Basophils % (Manual) 1.0 % (0.0-1.8) 11/17/18 16:02 Metamyelocytes % 0 % 11/17/18 16:02 Myelocytes % 0 % 11/17/18 16:02 Promyelocytes % 0 % 11/17/18 16:02 Blast Cells % 0 % 11/17/18 16:02 Nucleated RBC % Not Reportable 11/17/18 16:02 Seg Neutrophils # 6.0 K/mm3 (1.8-7.7) 11/16/18 05:22 Seg Neutrophils # Man 5.8 K/mm3 (1.8-7.7) 11/17/18 16:02 Band Neutrophils # 0.0 K/mm3 11/17/18 16:02 Lymphocytes # (Manual) 0.3 K/mm3 (1.2-5.4) L 11/17/18 16:02 Abs React Lymphs (Man) 0.0 K/mm3 11/17/18 16:02 Monocytes # (Manual) 0.3 K/mm3 (0.0-0.8) 11/17/18 16:02 Eosinophils # (Manual) 0.1 K/mm3 (0.0-0.4) 11/17/18 16:02 Basophils # (Manual) 0.1 K/mm3 (0.0-0.1) 11/17/18 16:02 Metamyelocytes # 0.0 K/mm3 11/17/18 16:02 Myelocytes # 0.0 K/mm3 11/17/18 16:02 Promyelocytes # 0.0 K/mm3 11/17/18 16:02 Blast Cells # 0.0 K/mm3 11/17/18 16:02 WBC Morphology Not Reportable 11/17/18 16:02 Hypersegmented Neuts Not Reportable 11/17/18 16:02 Hyposegmented Neuts Not Reportable 11/17/18 16:02 Hypogranular Neuts Not Reportable 11/17/18 16:02 Smudge Cells Not Reportable 11/17/18 16:02 Toxic Granulation Not Reportable 11/17/18 16:02 Toxic Vacuolation Not Reportable 11/17/18 16:02 Dohle Bodies Not Reportable 11/17/18 16:02 Pelger-Huet Anomaly Not Reportable 11/17/18 16:02 Jaimie Rods Not Reportable 11/17/18 16:02 Platelet Estimate Not Reportable 11/17/18 16:02 Clumped Platelets Not Reportable 11/17/18 16:02 Plt Clumps, EDTA Not Reportable 11/17/18 16:02 Large Platelets Not Reportable 11/17/18 16:02 Giant Platelets Not Reportable 11/17/18 16:02 Platelet Satelliting Not Reportable 11/17/18 16:02 Plt Morphology Comment Not Reportable 11/17/18 16:02 RBC Morphology Normal 11/17/18 16:02 Dimorphic RBCs Not Reportable 11/17/18 16:02 Polychromasia Not Reportable 11/17/18 16:02 Hypochromasia Not Reportable 11/17/18 16:02 Poikilocytosis Not Reportable 11/17/18 16:02 Anisocytosis Not Reportable 11/17/18 16:02 Microcytosis Not Reportable 11/17/18 16:02 Macrocytosis Not Reportable 11/17/18 16:02 Spherocytes Not Reportable 11/17/18 16:02 Pappenheimer Bodies Not Reportable 11/17/18 16:02 Sickle Cells Not Reportable 11/17/18 16:02 Target Cells Not Reportable 11/17/18 16:02 Tear Drop Cells Not Reportable 11/17/18 16:02 Ovalocytes Not Reportable 11/17/18 16:02 Helmet Cells Not Reportable 11/17/18 16:02 Salas-Riner Bodies Not Reportable 11/17/18 16:02 Partlow Rings Not Reportable 11/17/18 16:02 Tim Cells Not Reportable 11/17/18 16:02 Bite Cells Not Reportable 11/17/18 16:02 Crenated Cell Not Reportable 11/17/18 16:02 Elliptocytes Not Reportable 11/17/18 16:02 Acanthocytes (Spur) Not Reportable 11/17/18 16:02 Rouleaux Not Reportable 11/17/18 16:02 Hemoglobin C Crystals Not Reportable 11/17/18 16:02 Schistocytes Not Reportable 11/17/18 16:02 Malaria parasites Not Reportable 11/17/18 16:02 Umang Bodies Not Reportable 11/17/18 16:02 Hem Pathologist Commnt No 11/17/18 16:02 PT 15.7 Sec. (12.2-14.9) H 11/16/18 06:09 INR 1.17 (0.87-1.13) H 11/16/18 06:09 APTT 28.3 Sec. (24.2-36.6) 11/16/18 06:09 VBG pH 7.397 (7.320-7.420) 11/16/18 06:09 Sodium 133 mmol/L (137-145) L 11/17/18 16:02 Potassium 5.4 mmol/L (3.6-5.0) H 11/17/18 16:02 Chloride 95.8 mmol/L (98-107) L 11/17/18 16:02 Carbon Dioxide 18 mmol/L (22-30) L 11/17/18 16:02 Anion Gap 25 mmol/L 11/17/18 16:02 BUN 56 mg/dL (7-17) H 11/17/18 16:02 Creatinine 9.7 mg/dL (0.7-1.2) H 11/17/18 16:02 Estimated GFR 6 ml/min 11/17/18 16:02 BUN/Creatinine Ratio 6 % 11/17/18 16:02 Glucose 135 mg/dL (65-100) H 11/17/18 16:02 Lactic Acid 0.90 mmol/L (0.7-2.0) 11/16/18 07:48 Calcium 8.2 mg/dL (8.4-10.2) L 11/17/18 16:02 Phosphorus 5.00 mg/dL (2.5-4.5) H 11/16/18 07:48 Total Bilirubin 0.20 mg/dL (0.1-1.2) 11/16/18 07:48 Direct Bilirubin < 0.2 mg/dL (0-0.2) 11/16/18 07:48 Indirect Bilirubin 0.0 mg/dL 11/16/18 07:48 AST 12 units/L (5-40) 11/16/18 07:48 ALT < 5 units/L (7-56) L 11/16/18 07:48 Alkaline Phosphatase 97 units/L (35-129) 11/16/18 07:48 Total Creatine Kinase 105 units/L (30-135) 11/16/18 07:48 CK-MB (CK-2) 1.1 ng/mL (0.0-4.0) 11/16/18 07:48 CK-MB (CK-2) Rel Index 1.0 (0-4) 11/16/18 07:48 Troponin T 0.065 ng/mL (0.00-0.029) H 11/16/18 07:48 Total Protein 7.4 g/dL (6.3-8.2) 11/16/18 07:48 Albumin 2.9 g/dL (3.9-5) L 11/16/18 07:48 Albumin/Globulin Ratio 0.6 % 11/16/18 07:48 Triglycerides 77 mg/dL (2-149) 11/16/18 07:48 Cholesterol 112 mg/dL (50-199) 11/16/18 07:48 LDL Cholesterol Direct 57 mg/dL (50-130) 11/16/18 07:48 HDL Cholesterol 47 mg/dL (40-59) 11/16/18 07:48 Cholesterol/HDL Ratio 2.38 % 11/16/18 07:48 HCG, Qual Negative (Negative) 11/16/18 07:48 Random Vancomycin 17.6 ug/mL (0-40.0) 11/17/18 16:02 Blood Type O POSITIVE 11/16/18 07:48 Antibody Screen Positive 11/16/18 07:48 Antibody Identification Anti-Fya Anti-Fyb Anti-Jkb 11/16/18 07:48 Antibody Identification Anti-Fya Anti-Fyb Anti-Jkb 11/16/18 07:48 Antibody Identification Anti-Fya Anti-Fyb Anti-Jkb 11/16/18 07:48 Crossmatch See Detail 11/16/18 07:48
[2018-11-19] MEDS: BENADRYL IV PRN ×2 (04:53→15:36)
--- NOTE | 2018-11-19 09:06 | Progress Note ---
Subjective Interval history: Patient was seen today for follow-up on multiple renal related issues She is feeling much better Patient claims to be more compliant with dialysis lately Admitted with fever blood culture currently negative for last 72 hours Access: Patient denies having any problems Patient denies having any chest pain pressure or shortness of breath Vitals labs intake output medications were reviewed Social history: Reviewed Allergies: Reviewed Family history: Reviewed Physical examination HEENT: Oral mucosa moist no pallor or icterus Neck: Supple no JVD Chest: Clear to auscultation anteriorly CVS: Regular rate and rhythm S1 and S2 heard Abdomen: Soft nontender no suprapubic masses no organomegaly appreciable Extremity: Dry skin less than 1+ peripheral edema Musculoskeletal: No joint effusion noted in knees and ankle Neurological: Alert awake Fistula: Appears to be working well no tenderness or pain Dermatology: No petechial rashes Psychiatry: No evidence of any agitation and aggression noted Assessment and plan End-stage renal disease: Patient will continue with hemodialysis, monitor dialysis related labs Continue with hemodialysis treatment on Friday and Friday Admitted with fever cough abdominal pain, history of lupus, patient is currently afebrile,? Viral illness Blood cultures have been negative for 72 hours Admitted with mild hyperkalemia: Phosphorus is currently at 5.0, patient is more compliant than before Anemia in end-stage renal disease: Monitor hemoglobin and hematocrit, eryt hropoietin as needed Secondary hyperparathyroidism periodically check phosphorus and PTH level Hypertension and volume: , Adjust medications as needed, ultrafiltration as tolerated keep systolic blood pressure above 100 She is doing better from fluid and sodium standpoint She of seizure disorder to be followed by primary team Overall she's stable from renal standpoint We'll continue to follow and make recommendation from renal standpoint Objective - Vital Signs Vital signs: Vital Signs - 12hr 11/18/18 11/18/18 11/18/18 21:27 21:30 23:43 Temperature 98.8 F Pulse Rate 89 89 87 Respiratory 18 18 Rate Blood Pressure 135/92 135/92 117/82 O2 Sat by Pulse 98 97 Oximetry 11/19/18 05:18 Temperature 98.5 F Pulse Rate 86 Respiratory 20 Rate Blood Pressure 141/92 O2 Sat by Pulse 96 Oximetry - Lab 11/17/18 16:02 11/17/18 16:02 Most recent lab results Calcium 8.2 mg/dL (8.4-10.2) L 11/17/18 16:02 Phosphorus 5.00 mg/dL (2.5-4.5) H 11/16/18 07:48 Medications & Allergies - Medications Allergies/Adverse Reactions: Allergies acetaminophen [From Percocet] Allergy (Verified 04/21/18 08:28) Itching lisinopril Allergy (Verified 04/21/18 08:28) Swelling metoprolol Allergy (Verified 04/21/18 08:28) Unknown oxycodone [From Percocet] Allergy (Verified 04/21/18 08:28) Itching oxycodone HCl [From Percocet] Adverse Reaction (Verified 04/21/18 08:28) Unknown Home Medications: Home Medications Medication Instructions Recorded Confirmed Last Taken Type Furosemide [Lasix] 80 mg PO QDAY #30 tablet 04/23/18 09/11/18 Unknown Rx Albuterol Sulfate [Proair 2 puff IH Q4H PRN #1 pump 07/15/18 09/12/18 Unknown Rx Respiclick] Hydroxychloroquine [Plaquenil] 200 mg PO QDAY #30 tablet 07/24/18 09/11/18 Unknown Rx Clonidine HCl [Catapres] 0.3 mg PO TID 08/11/18 09/11/18 Unknown History Labetalol [Normodyne TAB] 200 mg PO TID 08/11/18 09/12/18 Unknown History Losartan [Cozaar] 100 mg PO QDAY 08/11/18 09/11/18 Unknown History Sertraline [Zoloft] 25 mg PO QDAY 08/11/18 09/11/18 Unknown History hydrALAZINE [Apresoline TAB] 100 mg PO TID 08/11/18 09/11/18 Unknown History HYDROcodone/APAP 10-325 [[place] 1 each PO Q4HR PRN #7 tablet 08/14/18 09/12/18 Unknown Rx 10-325 mg TAB] Phenytoin [Dilantin] 100 mg PO TID #90 capsule.er 08/19/18 09/11/18 Unknown Rx levETIRAcetam [Keppra TAB] 1,000 mg PO BID #60 tablet 08/19/18 09/12/18 Unknown Rx Amoxicillin/Potassium Clav 1 each PO BID #10 tablet 09/08/18 09/12/18 Unknown Rx [Augmentin 500-125 Tablet] Prednisone [predniSONE 10 mg 10 mg PO .TAPER #1 tab.ds.pk 09/08/18 09/11/18 Unknown Rx (6-Day Pack, 21 Tabs)] Dicyclomine [Bentyl] 10 mg PO QID PRN #20 capsule 09/10/18 Unknown Rx Ondansetron [Zofran Odt] 4 mg PO Q8HR PRN #20 tab.rapdis 09/10/18 Unknown Rx Methocarbamol [Robaxin-750] 750 mg PO Q6HR PRN #10 tablet 11/12/18 Unknown Rx Active Medications: Generic Name Dose Route Start Last Admin Trade Name Freq PRN Reason Stop Dose Admin Albuterol 2.5 mg 11/16/18 10:19 Proventil IH Q4HRT PRN Shortness Of Breath Clonidine HCl 0.3 mg 11/16/18 14:00 11/18/18 21:30 Catapres PO 0.3 mg TID FERNANDO Administration Diphenhydramine HCl 25 mg 11/17/18 15:53 11/18/18 09:07 Benadryl IV 25 mg ALYSSA PRN Administration Itching Diphenhydramine HCl 25 mg 11/18/18 17:40 11/19/18 04:53 Benadryl IV 25 mg Q6H PRN Administration Itching Furosemide 80 mg 11/16/18 10:00 11/18/18 11:07 Lasix PO Not Given DAILY FERNANDO Hydralazine HCl 100 mg 11/16/18 08:00 11/18/18 21:31 Apresoline PO 100 mg TID FERNANDO Administration Hydralazine HCl 10 mg 11/16/18 17:35 Apresoline IV Q4HR PRN Hypertension Hydromorphone HCl 0.5 mg 11/16/18 09:38 11/18/18 23:45 Dilaudid IV 0.5 mg Q8HR PRN Administration Pain , Severe (7-10) Hydroxychloroquine Sulfate 200 mg 11/16/18 10:00 11/18/18 11:04 Plaquenil PO 200 mg QDAY FERNANDO Administration Sodium Chloride 100 mls @ 999 mls/hr 11/17/18 15:53 Nacl 0.9% IV ALYSSA PRN Hypotension Labetalol HCl 200 mg 11/16/18 09:00 11/18/18 23:45 Normodyne PO Not Given TID FERNANDO Levetiracetam 1,000 mg 11/16/18 10:00 11/18/18 23:45 Keppra PO 1,000 mg BID FERNANDO Administration Losartan Potassium 100 mg 11/16/18 10:00 11/18/18 11:04 Cozaar PO 100 mg QDAY FERNANDO Administration Ondansetron HCl 4 mg 11/18/18 10:00 11/18/18 09:51 Zofran IV 4 mg Q6H PRN Administration Nausea And Vomiting Phenytoin 100 mg 11/16/18 09:00 11/18/18 21:34 Dilantin PO 100 mg TID FERNANDO Administration Sertraline HCl 25 mg 11/16/18 10:00 11/18/18 11:02 Zoloft PO 25 mg QDAY FERNANDO Administration
[2018-11-19] MEDS: PLAQUENIL PO SCH (10:29)
[2018-11-19] MEDS: KEPPRA PO SCH (10:29)
--- NOTE | 2018-11-19 10:34 | Progress Note ---
Assessment and Plan Cultures: 11/16/2018 blood culture: Negative at 48 hours A/P: 28-year-old female with ESRD on hemodialysis every Friday, heart failure, hypertension, migraines, multiple admissions in the past with history of noncompliance admitted with: 1) Fevers and bodyaches: Fevers resolved. Without leukocytosis. Evaluate for influenza. We will also evaluate for bacteremia since she is a dialysis patient. Follow-up blood cultures. For now, continue IV cefepime and vancomycin renally adjusted. Fevers could also be from lupus flare. Will check C3, C4. 2) ESRD: On dialysis. Renally dose antibiotics. 3) Lupus: on plaquenil. Recs: Rapid FLU and PCR ordered, not collected f/u C3, C4 f/u blood cultures monitor off antibiotics [facility] M: [phone] O:[phone] Subjective Date of service: 11/19/18 Interval history: Patient seen and examined. Awake, alert, no acute distress. No fevers.. Objective - Exam Narrative Exam: Constitutional: Awake. Alert. No acute distress. Head, Ears, Nose: Normocephalic, atraumatic. External ears, nose normal Eyes: Conjunctivae/corneas clear. No icterus. No ptosis. Neck: Supple, no meningeal signs Oral: dentition fair, no thrush Cardiovascular: S1, S2 normal. Respiratory: Good air entry, clear to auscultation bilaterally GI: Soft, non-tender; bowel sounds normal. No peritoneal signs Musculoskeletal: No pedal edema, no cyanosis. Skin: No rash or abscess Hem/Lymphatic: No palpable cervical or supraclavicular nodes. No lymphangitis Psych: Mood ok. Affect flat Neurological: Awake, alert, no acute distress - Constitutional Vitals: Vital Signs Temp Pulse Resp BP Pulse Ox 98.5 F 86 20 141/92 96 11/19/18 05:18 11/19/18 05:18 11/19/18 05:18 11/19/18 05:18 11/19/18 05:18 Temperature -Last 24 Hours Temperature 98.5 F Temperature 98.8 F Temperature 98.5 F Temperature 98.4 F - Labs CBC & Chem 7: 11/19/18 15:30 11/17/18 16:02
[2018-11-19] MEDS: DILAUDID IV PRN ×2 (11:05→18:57)
--- NOTE | 2018-11-19 14:10 | Discharge Summary ---
Providers - Providers Date of Admission: 11/16/18 10:11 Date of discharge: 11/19/18 Attending physician: EILEEN MARINELLI 11/16/18 07:58 Consult to Physician [CONS] Routine Comment: Consulting Provider: SREEDHAR MENJIVAR Physician Instructions: Reason For Exam: ESRD 11/17/18 16:20 Consult to Physician [CONS] Routine Comment: can see tomorrow Consulting Provider: PEG PINEDA Physician Instructions: Reason For Exam: Fever, ESRD on dialysis Primary care physician: MANNEQUIN [employer] Hospitalization Condition: Fair Hospital course: Patient is 28 yo with ESRD, congestive heart failure, hypertension, migraines, seizure disorder, lupus, chronic pain syndrome. She presented with nausea, vomiting, fever. She was evaluated in ED and admittted. Patient was evaluated by Nephrology for management of ESRD on dialysis. ID Physician evaluated for fever. Patient was empirically started on Zosyn and Vancomycin, were discontinued after fever subsided. Blood cultures were drawn but no growth. Sepsis ruled out. Fever due to SIRS. nausea and vomiting due to gastroparesis subsided and she was discharged home on 11/19/18. Total time spent on discharge, 32 mins Disposition: [id number] TO HOME OR SELFCARE - Discharge Diagnoses (1) SIRS (systemic inflammatory response syndrome) Status: Acute (2) Nausea and vomiting Status: Acute (3) Cocaine abuse Status: Acute (4) ESRD needing dialysis Status: Acute (5) Hyperkalemia Status: Acute (6) Hypertensive urgency Status: Acute Core Measure Documentation - Palliative Care Palliative Care/ Comfort Measures: Not Applicable - Core Measures Any of the following diagnoses?: none Exam - Constitutional Vitals: Temp Pulse Resp BP Pulse Ox 98.5 F 86 20 141/92 96 11/19/18 05:18 11/19/18 05:18 11/19/18 05:18 11/19/18 05:18 11/19/18 05:18 Plan Activity: no restrictions Diet: low fat, low cholesterol, low salt, renal Additional Instructions: 1.Follow up with PCP in 1 week. 2.Continue outpatient hemodialysis as scheduled Follow up with: PRIMARY CARE, [Primary Care Provider] - 3-5 Days Prescriptions: Metoclopramide HCl [Reglan TAB] 5 mg PO TIDAC PRN #20 tablet PRN Reason: nausea or vomiting
[2018-11-19] MEDS ORDERED: NACL 0.9 (PRIMING MACHINE ONLY DIALYSIS) MC ONE (15:36)
[2018-11-19 15:55] LABS: Hematocrit 26.7 % (30.3-42.9); Hemoglobin 8.8 gm/dl (10.1-14.3); Mean Corpuscular HGB Conc 33 % (30-34); Mean Corpuscular Volume 91 fl (79-97); Platelet Count 199 K/mm3 (140-440); Red Blood Count 2.94 M/mm3 (3.65-5.03); Red Cell Distribution Width 16.3 % (13.2-15.2)
[2018-11-19] MEDS: APRESOLINE PO SCH ×2 (17:03→19:20)
[2018-11-19] MEDS: CATAPRES PO SCH ×2 (17:03→19:19)
[2018-11-19] MEDS: LASIX PO SCH ×2 (17:04→19:18)
[2018-11-19] MEDS: NORMODYNE PO SCH ×3 (17:04→19:16)
[2018-11-19] MEDS: ZOLOFT PO SCH ×2 (17:04→19:21)
[2018-11-19] MEDS: COZAAR PO SCH ×2 (17:04→19:19)
[2018-11-19] MEDS: DILANTIN PO SCH ×3 (17:04→19:21)
[2018-11-19 19:08] VITALS: BP 167/95
== END 2018-11-19 20:00 | disposition home or self-care (01) | DRG 871 ==
LOC: ED 04:39 → 4A 10:11 → 3A 11-18 16:37
PROVIDERS: ADMIT Internal Medicine; ATTEND Internal Medicine
PROC: 5A1D70Z Performance of Urinary Filtration, Intermittent, Less than 6 Hours Per Day (ICD-10-PCS; principal; 2018-11-17)
PROC: 5A1D70Z Performance of Urinary Filtration, Intermittent, Less than 6 Hours Per Day (ICD-10-PCS; 2018-11-19)
DX: A41.9 Sepsis, unspecified organism (principal); N18.6 End stage renal disease; I42.9 Cardiomyopathy, unspecified; N25.81 Secondary hyperparathyroidism of renal origin; I13.2 Hypertensive heart and chronic kidney disease with heart failure and with stage 5 chronic kidney disease, or end stage renal disease; E87.5 Hyperkalemia; Z99.2 Dependence on renal dialysis; I50.9 Heart failure, unspecified; G43.909 Migraine, unspecified, not intractable, without status migrainosus; G89.4 Chronic pain syndrome; M19.90 Unspecified osteoarthritis, unspecified site; J45.909 Unspecified asthma, uncomplicated; K29.00 Acute gastritis without bleeding; G40.909 Epilepsy, unspecified, not intractable, without status epilepticus; D63.1 Anemia in chronic kidney disease; M32.9 Systemic lupus erythematosus, unspecified
CPT/HCPCS: 36415; 71045; 74176; 80048; 80053; 80061; 80076; 80202; 82140; 82550; 82553; 82805; 84100; 84484; 84703; 85007; 85025; 85027; 85610; 85730; 86160; 86850; 86870; 86900; 86901; 87040; 93005; 93010; 94760; 96365; 96375; 99406; G0378; J0692; J1170; J1200; J2185; J2405; J2543; J3370; J7030

== ENCOUNTER 2018-11-25 04:35 | Emergency (ER) | payer MEDICARE ==
[2018-11-25 05:14] LABS: Hematocrit 30.8 % (30.3-42.9); Hemoglobin 10.3 gm/dl (10.1-14.3); Mean Corpuscular HGB Conc 33 % (30-34); Mean Corpuscular Volume 89 fl (79-97); Platelet Count 273 K/mm3 (140-440); Red Blood Count 3.45 M/mm3 (3.65-5.03); Red Cell Distribution Width 15.8 % (13.2-15.2)
[2018-11-25 05:26] LABS: Calcium 9.2 mg/dL (8.4-10.2)
--- NOTE | 2018-11-25 06:18 | Emergency Department Report ---
ED Seizure HPI - General Chief Complaint: Seizure Stated Complaint: SEIZURES Time Seen by Provider: 11/25/18 06:09 Source: patient, EMS Mode of arrival: Stretcher Limitations: No Limitations - History of Present Illness Initial Comments: Patient is a 28-year-old female that presents emergency room with complaints of seizure. Patient has a known seizure history. Patient states she is compliant with her medications. Patient states her last seizure was September. Patient states she has seizures about once every 2-3 months. She denies chest pain shor tness of breath. Patient denies missing medications. Patient denies head injury. Patient denies tongue injury or shoulder injury. Patient denies any new pains or new complaints. MD Complaint: seizure -: Sudden Description of Episode: loss of consciousness, tonic-clonic movement -: second(s) Witnessed:: Yes Trauma: No Seizure History: known seizure disorder, compliant with medication Place: home Possible Precipitating Event: none Associated Symptoms: denies: chest pain, confusion, cough, diaphoresis, fever/chills, loss of appetite, malaise, rash, shortness of breath, syncope, weakness, tongue injury, shoulder dislocation Treatments Prior to Arrival: none - Related Data Home Medications Medication Instructions Recorded Confirmed Last Taken Clonidine HCl [Catapres] 0.3 mg PO TID 08/11/18 09/11/18 Unknown Labetalol [Normodyne TAB] 200 mg PO TID 08/11/18 09/12/18 Unknown Losartan [Cozaar] 100 mg PO QDAY 08/11/18 09/11/18 Unknown Sertraline [Zoloft] 25 mg PO QDAY 08/11/18 09/11/18 Unknown hydrALAZINE [Apresoline TAB] 100 mg PO TID 08/11/18 09/11/18 Unknown Previous Rx's Medication Instructions Recorded Last Taken Type Furosemide [Lasix] 80 mg PO QDAY #30 tablet 04/23/18 Unknown Rx Albuterol Sulfate [Proair 2 puff IH Q4H PRN #1 pump 07/15/18 Unknown Rx Respiclick] Hydroxychloroquine [Plaquenil] 200 mg PO QDAY #30 tablet 07/24/18 Unknown Rx HYDROcodone/APAP 10-325 [[place] 1 each PO Q4HR PRN #7 tablet 08/14/18 Unknown Rx 10-325 mg TAB] Phenytoin [Dilantin] 100 mg PO TID #90 capsule.er 08/19/18 Unknown Rx levETIRAcetam [Keppra TAB] 1,000 mg PO BID #60 tablet 08/19/18 Unknown Rx Dicyclomine [Bentyl] 10 mg PO QID PRN #20 capsule 09/10/18 Unknown Rx Ondansetron [Zofran ODT TAB] 4 mg PO Q8HR PRN #20 tab.rapdis 09/10/18 Unknown Rx Methocarbamol [Robaxin-750] 750 mg PO Q6HR PRN #10 tablet 11/12/18 Unknown Rx Metoclopramide HCl [Reglan TAB] 5 mg PO TIDAC PRN #20 tablet 11/19/18 Unknown Rx Allergies Allergy/AdvReac Type Severity Reaction Status Date / Time acetaminophen [From Percocet] Allergy Itching Verified 04/21/18 08:28 lisinopril Allergy Swelling Verified 04/21/18 08:28 metoprolol Allergy Unknown Verified 04/21/18 08:28 oxycodone [From Percocet] Allergy Itching Verified 04/21/18 08:28 oxycodone HCl [From Percocet] AdvReac Unknown Verified 04/21/18 08:28 ED Review of Systems ROS: Stated complaint: SEIZURES Other details as noted in HPI Constitutional: denies: chills, fever Eyes: denies: eye pain, eye discharge, vision change ENT: denies: ear pain, throat pain Respiratory: denies: cough, shortness of breath, wheezing Cardiovascular: denies: chest pain, palpitations Endocrine: no symptoms reported Gastrointestinal: denies: abdominal pain, nausea, diarrhea Genitourinary: denies: urgency, dysuria, discharge Musculoskeletal: denies: back pain, joint swelling, arthralgia Skin: denies: rash, lesions Neurological: denies: headache, weakness, paresthesias Psychiatric: denies: anxiety, depression Hematological/Lymphatic: denies: easy bleeding, easy bruising ED Past Medical Hx - Past Medical History Previous Medical History?: Yes Hx Hypertension: Yes Hx Congestive Heart Failure: Yes Hx Diabetes: No Hx Renal Disease: Yes (Tues, Thurs, Sat) Hx Arthritis: Yes Hx Headaches / Migraines: Yes Hx Seizures: Yes (2 seizures last month) Hx Asthma: Yes Hx COPD: No Hx HIV: No Additional medical history: Lupus - Surgical History Past Surgical History?: Yes Additional Surgical History: RIGHT ARM graft - Family History Family history: no significant - Social History Smoking Status: Current Every Day Smoker Substance Use Type: None - Medications Home Medications: Home Medications Medication Instructions Recorded Confirmed Last Taken Type Furosemide [Lasix] 80 mg PO QDAY #30 tablet 04/23/18 09/11/18 Unknown Rx Albuterol Sulfate [Proair 2 puff IH Q4H PRN #1 pump 07/15/18 09/12/18 Unknown Rx Respiclick] Hydroxychloroquine [Plaquenil] 200 mg PO QDAY #30 tablet 07/24/18 09/11/18 Unknown Rx Clonidine HCl [Catapres] 0.3 mg PO TID 08/11/18 09/11/18 Unknown History Labetalol [Normodyne TAB] 200 mg PO TID 08/11/18 09/12/18 Unknown History Losartan [Cozaar] 100 mg PO QDAY 08/11/18 09/11/18 Unknown History Sertraline [Zoloft] 25 mg PO QDAY 08/11/18 09/11/18 Unknown History hydrALAZINE [Apresoline TAB] 100 mg PO TID 08/11/18 09/11/18 Unknown History HYDROcodone/APAP 10-325 [[place] 1 each PO Q4HR PRN #7 tablet 08/14/18 09/12/18 Unknown Rx 10-325 mg TAB] Phenytoin [Dilantin] 100 mg PO TID #90 capsule.er 08/19/18 09/11/18 Unknown Rx levETIRAcetam [Keppra TAB] 1,000 mg PO BID #60 tablet 08/19/18 09/12/18 Unknown Rx Dicyclomine [Bentyl] 10 mg PO QID PRN #20 capsule 09/10/18 Unknown Rx Ondansetron [Zofran ODT TAB] 4 mg PO Q8HR PRN #20 tab.rapdis 09/10/18 Unknown Rx Methocarbamol [Robaxin-750] 750 mg PO Q6HR PRN #10 tablet 11/12/18 Unknown Rx Metoclopramide HCl [Reglan TAB] 5 mg PO TIDAC PRN #20 tablet 11/19/18 Unknown Rx ED Physical Exam - General Limitations: No Limitations General appearance: alert, in no apparent distress - Head Head exam: Present: atraumatic, normocephalic - Eye Eye exam: Present: normal appearance - ENT ENT exam: Present: mucous membranes moist - Neck Neck exam: Present: normal inspection - Respiratory Respiratory exam: Present: normal lung sounds bilaterally. Absent: respiratory distress - Cardiovascular Cardiovascular Exam: Present: regular rate, normal rhythm. Absent: systolic murmur, diastolic murmur, rubs, gallop - GI/Abdominal GI/Abdominal exam: Present: soft, normal bowel sounds - Extremities Exam Extremities exam: Present: normal inspection - Back Exam Back exam: Present: normal inspection - Neurological Exam Neurological exam: Present: alert, oriented X3 - Psychiatric Psychiatric exam: Present: normal affect, normal mood - Skin Skin exam: Present: warm, dry, intact, normal color. Absent: rash ED Course Vital Signs 11/25/18 11/25/18 11/25/18 04:42 04:43 04:46 Temperature 98.8 F Pulse Rate 101 H 103 H 101 H Respiratory 20 15 16 Rate Blood Pressure 179/117 Blood Pressure [Left] O2 Sat by Pulse 97 97 98 Oximetry 11/25/18 11/25/18 11/25/18 05:00 05:16 05:30 Temperature Pulse Rate 98 H 90 97 H Respiratory 15 19 15 Rate Blood Pressure Blood Pressure [Left] O2 Sat by Pulse 99 99 99 Oximetry 11/25/18 11/25/18 11/25/18 05:46 06:00 06:15 Temperature Pulse Rate 95 H 91 H 94 H Respiratory 19 19 14 Rate Blood Pressure 169/110 172/106 Blood Pressure [Left] O2 Sat by Pulse 99 Oximetry 11/25/18 11/25/18 11/25/18 06:30 06:45 07:30 Temperature Pulse Rate 84 Respiratory 16 21 18 Rate Blood Pressure 164/99 181/106 Blood Pressure 170/100 [Left] O2 Sat by Pulse 99 93 100 Oximetry - Reevaluation(s) Reevaluation #1: Discussed all results with patient. Patient stable for discharge. Patient was discharged home. Patient states she has an appointment with her family practitioner neurologist today. She given discharge instructions. Patient to return to your condition worsens. Patient to avoid driving. Patient voiced understanding of discharge instructions. 11/25/18 07:37 ED Medical Decision Making - Lab Data Result diagrams: 11/25/18 04:56 11/25/18 04:56 - EKG Data -: EKG Interpreted by Me EKG shows normal: sinus rhythm, axis, intervals, QRS complexes, ST-T waves Rate: normal - Medical Decision Making Patient is a 28-year-old female with a known seizure history presents to emergency room with seizures. Patient stable for discharge. Patient's labs unremarkable. Patient was discharged home. Patient instructed to continue all medications. Patient instructed to follow up with her specialist and her primary care. - Differential Diagnosis seizure. Critical care attestation.: If time is entered above; I have spent that time in minutes in the direct care of this critically ill patient, excluding procedure time. ED Disposition Clinical Impression: ESRD (end stage renal disease), Seizure, Seizure disorder Anemia in CKD (chronic kidney disease) Qualifiers: Chronic kidney disease stage: on chronic dialysis Qualified Code(s): N18.6 - End stage renal disease; D63.1 - Anemia in chronic kidney disease; Z99.2 - Dependence on renal dialysis Disposition: - TO HOME OR SELFCARE Is pt being admited?: No Does the pt Need Aspirin: No Condition: Stable Instructions: Epilepsy (ED), Recurrent Seizures Adult (ED), Women and Epilepsy (ED) Additional Instructions: Patient to follow-up with primary care within 2-3 days. Patient to follow up with neurologist within 2-3 days. Patient to return to ER if condition worsens. Patient to take ER.. Patient to increase water. Patient to rest. Patient to avoid driving. Patient to continue all medications as directed by her outpat ient doctors. Referrals: [facility] [Other] - 2-3 Days Time of Disposition: 07:40
[2018-11-25 09:06] VITALS: BP 170/100
== END 2018-11-25 08:45 | disposition home or self-care (01) ==
LOC: ED 04:35
DX: G40.909 Epilepsy, unspecified, not intractable, without status epilepticus (principal); D63.1 Anemia in chronic kidney disease; I12.0 Hypertensive chronic kidney disease with stage 5 chronic kidney disease or end stage renal disease; N18.6 End stage renal disease; Z99.2 Dependence on renal dialysis; F17.200 Nicotine dependence, unspecified, uncomplicated; Z88.2 Allergy status to sulfonamides; Z88.5 Allergy status to narcotic agent; Z88.8 Allergy status to other drugs, medicaments and biological substances
CPT/HCPCS: 36415; 80048; 82962; 85027; 93005; 93010

== ENCOUNTER 2018-12-14 21:45 | Emergency (ER) | payer MEDICARE ==
[2018-12-14] MEDS ORDERED: DILAUDID IM ONE (22:24)
[2018-12-14] MEDS ORDERED: CATAPRES PO ONE (22:24)
--- NOTE | 2018-12-14 22:28 | Emergency Department Report ---
ED General Adult HPI - General Chief complaint: Chest Pain Stated complaint: PRABHU Time Seen by Provider: 12/14/18 22:11 Source: patient, EMS (ems notes not available at time of chart dictation), RN notes reviewed, old records reviewed Mode of arrival: Stretcher Limitations: No Limitations - History of Present Illness Initial comments: This is a 28-year-old female. I have evaluated this patient multiple times in the past. Past medical history includes end-stage renal disease, congestive heart failure, hypertension, migraines, seizure, lupus, chronic pain syndrome, narcotic dependence. Her ornamental metalwork designer is Dr. Ramona Hardin He reports that she gets dialysis Friday, , Friday. She is due to get dialysis today, Friday. Of note, patient had a cardiac catheterization performed at this hospital February 2018, which demonstrated no evidence angiographically of coronary artery disease. She was found to have a normal left ventricular ejection fraction, 55- 60%, and normal route aortography, without evidence of penetrating aortic ulcer, dissection, insufficiency, or stenosis. Patient has presented to this hospital, and to myself, multiple times for evaluation of chronic chest pain, abdominal pain and back pain. The patient had a CT scan of the chest ordered by myself, April,, which demonstrated no evidence of pulmonary embolus, and in July,, had a low probability nuclear medicine study. Next Today, the patient presents to the emergency room with her typical complaint of left-sided abdominal pain, left-sided chest wall pain. She reports pain is intermittent over the past 24 hours. It increases with palpation. It decreases with rest and pain medication. The patient denies posterior leg pain and swelli ng. She denies recent surgeries. The patient reports that she was recently seen at [place], within the past 24 hours, for similar symptoms, and discharged. Of note, this patient has chronic pain, and this is similar to prior episodes of chronic pain. She reports her chest wall pain today may radiates to the back, and also to her neck. She makes no complaint of vomiting or diaphoresis. -: Gradual, hour(s), days(s) Location: chest Radiation: back Severity scale (0 -10): 8 Quality: aching Consistency: other Improves with: other Worsens with: other - Related Data Home Medications Medication Instructions Recorded Confirmed Last Taken Clonidine HCl [Catapres] 0.3 mg PO TID 08/11/18 09/11/18 Unknown Labetalol [Normodyne TAB] 200 mg PO TID 08/11/18 09/12/18 Unknown Losartan [Cozaar] 100 mg PO QDAY 08/11/18 09/11/18 Unknown Sertraline [Zoloft] 25 mg PO QDAY 08/11/18 09/11/18 Unknown hydrALAZINE [Apresoline TAB] 100 mg PO TID 08/11/18 09/11/18 Unknown Previous Rx's Medication Instructions Recorded Last Taken Type Furosemide [Lasix] 80 mg PO QDAY #30 tablet 04/23/18 Unknown Rx Albuterol Sulfate [Proair 2 puff IH Q4H PRN #1 pump 07/15/18 Unknown Rx Respiclick] Hydroxychloroquine [Plaquenil] 200 mg PO QDAY #30 tablet 07/24/18 Unknown Rx HYDROcodone/APAP 10-325 [[place] 1 each PO Q4HR PRN #7 tablet 08/14/18 Unknown Rx 10-325 mg TAB] Phenytoin [Dilantin] 100 mg PO TID #90 capsule.er 08/19/18 Unknown Rx levETIRAcetam [Keppra TAB] 1,000 mg PO BID #60 tablet 08/19/18 Unknown Rx Dicyclomine [Bentyl] 10 mg PO QID PRN #20 capsule 09/10/18 Unknown Rx Ondansetron [Zofran ODT TAB] 4 mg PO Q8HR PRN #20 tab.rapdis 09/10/18 Unknown Rx Methocarbamol [Robaxin-750] 750 mg PO Q6HR PRN #10 tablet 11/12/18 Unknown Rx Metoclopramide HCl [Reglan TAB] 5 mg PO TIDAC PRN #20 tablet 12/15/18 Unknown Rx Allergies Allergy/AdvReac Type Severity Reaction Status Date / Time acetaminophen [From Percocet] Allergy Itching Verified 04/21/18 08:28 lisinopril Allergy Swelling Verified 04/21/18 08:28 metoprolol Allergy Unknown Verified 04/21/18 08:28 oxycodone [From Percocet] Allergy Itching Verified 04/21/18 08:28 oxycodone HCl [From Percocet] AdvReac Unknown Verified 04/21/18 08:28 ED Review of Systems ROS: Stated complaint: PRABHU Other details as noted in HPI Constitutional: malaise. denies: weakness Eyes: denies: vision change ENT: denies: epistaxis Respiratory: denies: wheezing Cardiovascular: chest pain Gastrointestinal: denies: vomiting Genitourinary: denies: dysuria Musculoskeletal: back pain Skin: denies: lesions Neurological: weakness Psychiatric: anxiety ED Past Medical Hx - Past Medical History Hx Hypertension: Yes Hx Congestive Heart Failure: Yes Hx Diabetes: No Hx Renal Disease: Yes (Tues, Thurs, Sat) Hx Arthritis: Yes Hx Headaches / Migraines: Yes Hx Seizures: Yes (2 seizures last month) Hx Asthma: Yes Hx COPD: No Hx HIV: No Additional medical history: Lupus - Surgical History Past Surgical History?: Yes Additional Surgical History: RIGHT ARM graft - Social History Smoking Status: Never Smoker Substance Use Type: None - Medications Home Medications: Home Medications Medication Instructions Recorded Confirmed Last Taken Type Furosemide [Lasix] 80 mg PO QDAY #30 tablet 04/23/18 09/11/18 Unknown Rx Albuterol Sulfate [Proair 2 puff IH Q4H PRN #1 pump 07/15/18 09/12/18 Unknown Rx Respiclick] Hydroxychloroquine [Plaquenil] 200 mg PO QDAY #30 tablet 07/24/18 09/11/18 Unknown Rx Clonidine HCl [Catapres] 0.3 mg PO TID 08/11/18 09/11/18 Unknown History Labetalol [Normodyne TAB] 200 mg PO TID 08/11/18 09/12/18 Unknown History Losartan [Cozaar] 100 mg PO QDAY 08/11/18 09/11/18 Unknown History Sertraline [Zoloft] 25 mg PO QDAY 08/11/18 09/11/18 Unknown History hydrALAZINE [Apresoline TAB] 100 mg PO TID 08/11/18 09/11/18 Unknown History HYDROcodone/APAP 10-325 [[place] 1 each PO Q4HR PRN #7 tablet 08/14/18 09/12/18 Unknown Rx 10-325 mg TAB] Phenytoin [Dilantin] 100 mg PO TID #90 capsule.er 08/19/18 09/11/18 Unknown Rx levETIRAcetam [Keppra TAB] 1,000 mg PO BID #60 tablet 08/19/18 09/12/18 Unknown Rx Dicyclomine [Bentyl] 10 mg PO QID PRN #20 capsule 09/10/18 Unknown Rx Ondansetron [Zofran ODT TAB] 4 mg PO Q8HR PRN #20 tab.rapdis 09/10/18 Unknown Rx Methocarbamol [Robaxin-750] 750 mg PO Q6HR PRN #10 tablet 11/12/18 Unknown Rx Metoclopramide HCl [Reglan TAB] 5 mg PO TIDAC PRN #20 tablet 12/15/18 Unknown Rx ED Physical Exam - General Limitations: No Limitations General appearance: alert, anxious, in distress, obese - Head Head exam: Present: atraumatic, normocephalic - Eye Eye exam: Present: normal appearance, EOMI Pupils: Absent: unequal - ENT ENT exam: Present: normal exam, normal orophraynx, mucous membranes moist, normal external ear exam - Neck Neck exam: Present: normal inspection, full ROM. Absent: tenderness, meningismus - Respiratory Respiratory exam: Present: normal lung sounds bilaterally, chest wall tenderness, other (chaperoned by ER web press operator apprentice Carlitos Dave). Absent: respiratory distress, wheezes, rales, rhonchi, stridor - Cardiovascular Cardiovascular Exam: Present: normal rhythm, tachycardia, normal heart sounds. Absent: bradycardia, irregular rhythm, diastolic murmur, rubs, gallop - GI/Abdominal GI/Abdominal exam: Present: soft. Absent: distended, tenderness, guarding, rebound, rigid, pulsatile mass - Extremities Exam Extremities exam: Present: normal inspection, full ROM, other (2+ pulses noted in the bilateral upper, lower extremities. Compartments soft. No long bony tenderness. The pelvis is stable.). Absent: calf tenderness - Back Exam Back exam: Present: normal inspection. Absent: full ROM, tenderness, CVA tenderness (R), paraspinal tenderness, vertebral tenderness - Neurological Exam Neurological exam: Present: alert, oriented X3, other (Extraocular movements intact. Tongue midline. No facial droop. Facial sensation intact to light touch in the V1, V2, V3 distribution bilaterally. 5 and 5 strength in 4 extremities.. Sensation is intact to light touch in 4 extremities.). Absent: motor sensory deficit - Psychiatric Psychiatric exam: Present: anxious - Skin Skin exam: Present: warm, dry, intact, normal color. Absent: rash ED Course Vital Signs 12/14/18 12/14/18 12/14/18 22:04 22:35 22:43 Temperature 98 F Pulse Rate 107 H 107 H 105 H Respiratory 19 13 Rate Blood Pressure 182/126 188/129 182/126 Blood Pressure 182/126 [Left] O2 Sat by Pulse 100 Oximetry 12/14/18 23:30 Temperature Pulse Rate 107 H Respiratory 19 Rate Blood Pressure 188/129 Blood Pressure [Left] O2 Sat by Pulse Oximetry - Reevaluation(s) Reevaluation #1: 12/15/18 01:32 Differential diagnosis, including not limited to: Costochondritis, GERD, gastritis, hiatal hernia, pneumonia, acute coronary syndrome, intra-abdominal infection, colitis, diverticulitis, constipation Assessment and plan: 28-year-old female presenting with her typical constellation of chest pain, hypertension and abdominal pain. Patient has had multiple evaluations for pulmonary embolus, which have been less for unremarkable. Tachycardia is appreciated, likely secondary to pain and anxiety. Today, the patient makes no complaint of homicidality or suicidality. Her laboratory studies did not demonstrate hyperkalemia. Chronically elevated troponin is reviewed and appreciated, we would expect this in the context of chronic renal insufficiency. The patient has had a definitive cardiac risk stratification within the past year at this hospital, in the form of her cardiac catheterization. Based off of this evidence, the patient is at low risk for major adverse cardiac event within the next 30 days. I think aortic disease is also unlikely, given recent negative CT scans of the chest, and equal pulses in the upper, lower extremities. The patient does have chronic pain, and I am sympathetic to that, so she will be given 1 mg of hydromorphone intramuscularly. She will be given clonidine as well. However, the patient has chronically elevated blood pressure, and this is poorly managed. However, today's her dialysis today, and she does not have any acute medical indications for hospitalization at this time. She will be discharged with instructions to follow-up with her ornamental metalwork designer for dialysis, pain specialist, and landscape horticulture instructor. ED Medical Decision Making - Lab Data Result diagrams: 12/14/18 23:04 12/14/18 23:04 Vital Signs 12/14/18 12/14/18 12/14/18 22:04 22:35 22:43 Temperature 98 F Pulse Rate 107 H 107 H 105 H Respiratory 19 13 Rate Blood Pressure 182/126 188/129 182/126 Blood Pressure 182/126 [Left] O2 Sat by Pulse 100 Oximetry Lab Results 12/14/18 12/14/18 Range/Units 23:04 23:04 WBC 4.9 (4.5-11.0) K/mm3 RBC 3.88 (3.65-5.03) M/mm3 Hgb 11.7 (10.1-14.3) gm/dl Hct 35.9 (30.3-42.9) % MCV 92 (79-97) fl MCH 30 (28-32) pg MCHC 33 (30-34) % RDW 18.6 H (13.2-15.2) % Plt Count 254 (140-440) K/mm3 PT 14.4 (12.2-14.9) Sec. INR 1.05 (0.87-1.13) - EKG Data -: EKG Interpreted by Md Rate: normal, tachycardia - EKG Data 12/15/18 01:35 EKG #2 shows a sinus tachycardia, left axis deviation, left anterior fascicular block, left ventricular hypertrophy, QTC prolonged, borderline atrial enlargement, this is an abnormal EKG, this is not consistent with an ST elevation myocardial infarction. This is unchanged from EKG #1. Both EKGs appear to be unchanged when compared to prior EKG from 2017. 12/15/18 01:36 - Radiology Data Radiology results: report reviewed, image reviewed Print Report Referring Physician: EILEEN BLANC Patient Name: SANDRA DICKEY Date of : 1990 Sex: Female Report Date: 2018-12-14 Report Status: Finalized Findings [facility] [address] [place] [address] XRay Report Signed Patient: SANDRA DICKEY MR#: [id number] : 1990 Acct:[id number] Age/Sex: 28 / F ADM Date: 12/14/18 Loc: ED Attending Dr: Ordering Physician: EILEEN BLANC MD Date of Service: 04/08/19 Procedure(s): XR chest routine 2V Accession Number(s): [id number] cc: EILEEN BLANC MD Fluoro Time In Minutes: PROCEDURE: XR CHEST ROUTINE 2V TECHNIQUE: PA and lateral chest radiographs were obtained. HISTORY: cp COMPARISONS: 11/16/2018. FINDINGS: This study is limited due to suboptimal inspiration. There are mild degree bilateral pleural effusions. There are no confluent infiltrates or mass lesions. An 8 mm nodular density is noted in the left upper lobe. Cardiac size is upper limit of normal. Interstitial markings are prominent. IMPRESSION: Cardiomegaly, prominent interstitial markings with mild degree of bilateral pleural effusions may represent CHF in the appropriate clinical setting. 8mm nodule left upper lobe. CT chest may be recommended for further evaluation. This document is electronically signed by Marquez Youngblood MD., December 14 2018 11:03:45 PM ET Transcribed By: [facility] Dictated By: MARQUEZ YOUNGBLOOD Electronically Authenticated By: MARQUEZ YOUNGBLOOD Signed Date/Time: 12/14/182304 DD/ 47 TD/TT: 12/14/182247 Critical care attestation.: If time is entered above; I have spent that time in minutes in the direct care of this critically ill patient, excluding procedure time. ED Disposition Clinical Impression: Chest pain, ESRD (end stage renal disease) on dialysis, Chronic abdominal pain, HTN (hypertension) Disposition: -01 TO HOME OR SELFCARE Is pt being admited?: No Does the pt Need Aspirin: No Condition: Stable Instructions: Chest Pain (ED), Hypertension (ED) Additional Instructions: Take nausea medication as needed/directed. Follow-up in the morning for your Dialysis. Follow-up with your ornamental metalwork designer as scheduled within the next week. Follow-up with a landscape horticulture instructor within the next week. Please remain compliant with antihypertensive medications. Long-term complications of hypertension and elevated blood pressure include stroke, heart attack, disability, paralysis, loss of quality of life. Please return to the emergency room right away with new pain, worsened pain, migration of pain, projectile vomiting, change in mental status, confusion, inability to speak or breathe, new, worsening or different symptoms. Referrals: SREEDHAR HARDIN MD [Staff Physician] - 3-5 Days DORENE ZAVALETA MD [Staff Physician] - 3-5 Days
--- NOTE | 2018-12-14 23:05 | XRay Report ---
PROCEDURE: XR CHEST ROUTINE 2V TECHNIQUE: PA and lateral chest radiographs were obtained. HISTORY: cp COMPARISONS: 11/16/2018. FINDINGS: This study is limited due to suboptimal inspiration. There are mild degree bilateral pleural effusion s. There are no confluent infiltrates or mass lesions. An 8 mm nodular density is noted in the left u pper lobe. Cardiac size is upper limit of normal. Interstitial markings are prominent. IMPRESSION: Cardiomegaly, prominent interstitial markings with mild degree of bilateral pleural effusions may rep resent CHF in the appropriate clinical setting. 8mm nodule left upper lobe. CT chest may be recommended for further evaluation. This document is electronically signed by John Youngblood MD., December 14 2018 11:03:45 PM ET
[2018-12-14 23:44] LABS: INR 1.05 (0.87-1.13)
[2018-12-14 23:46] LABS: Hematocrit 35.9 % (30.3-42.9); Hemoglobin 11.7 gm/dl (10.1-14.3); Mean Corpuscular HGB Conc 33 % (30-34); Mean Corpuscular Volume 92 fl (79-97); Platelet Count 254 K/mm3 (140-440); Red Blood Count 3.88 M/mm3 (3.65-5.03); Red Cell Distribution Width 18.6 % (13.2-15.2)
[2018-12-15 00:01] LABS: Albumin 3.5 g/dL (3.9-5); BUN/Creatinine Ratio 5; Blood Urea Nitrogen 43 mg/dL (7-17); Calcium 9.6 mg/dL (8.4-10.2); Hemolysis Index 8
[2018-12-15 00:06] LABS: Alanine Aminotransferase < 5 units/L (7-56)
--- NOTE | 2018-12-15 00:30 | Cat Scan Report ---
PROCEDURE: CT ABDOMEN PELVIS WO CON TECHNIQUE: Computerized axial tomography of the abdomen and pelvis was performed without intravenous contrast. This study is performed without intravascular contrast material and its sensitivity for ab dominal and pelvic pathology, including neoplasms, inflammation, abscess, free fluid, thrombosis, art erial dissection and infarction, is reduced compared with a contrast enhanced study. HISTORY: abd pain COMPARISONS: November 16, 2018 . FINDINGS: Visualized lower thorax: The heart size is enlarged. Bilateral lower lung atelectasis with slight ple ural thickening is noted.. Liver: Normal size and attenuation. Spleen: Normal size and attenuation. Gallbladder and biliary system: There are stones identified within the gallbladder lumen. No dilatati on of the biliary ductal system. Pancreas: Normal. Adrenals: Normal. Kidneys: Bilateral thinning of the renal cortex is noted. A small 1 cm area of national the posterior lateral right renal cortex is noted. This may represent a complicated cyst. This is not fully evalua malou. Small 1 cm area off the anterior left renal cortex is most likely a cyst. No hydronephrosis.. GI tract: The stomach is normal. The small bowel has a normal caliber. No obstruction is seen. The, appendix region and colon are normal. Evaluation of bowel is limited without oral and IV contrast. . Lymph nodes and mesentery: Normal. Vasculature: Normal.. Bladder: Normal. Reproductive organs: The uterus size is normal. Small follicular cysts identified in each ovary. Ther e is moderate fluid in the lower pelvis.. Peritoneum: Moderate fluid in the lower pelvis.. Musculoskeletal structures: No significant abnormality. Other: None. IMPRESSION: There is no evidence of intestinal or urinary tract obstruction. Thinning of the renal cortex is identified bilaterally. Possible 1 cm complicated cyst off the signaling design engineer ior lateral right renal cortex. No hydronephrosis. No significant change since prior study Cholelithiasis. Bilateral ovarian follicular cysts are identified. There is moderate fluid in the lower pelvis. No si gnificant change since prior study. Cardiomegaly. Bilateral lower lung atelectasis with right pleural thickening . This document is electronically signed by Tejal Ruby DO., December 15 2018 12:28:33 AM ET
[2018-12-15 00:39] LABS: Chol/HDL Ratio 2.09 %
[2018-12-15 01:14] VITALS: BP 188/129
== END 2018-12-15 01:45 | disposition home or self-care (01) ==
LOC: ED 21:45
DX: R07.89 Other chest pain (principal); R10.9 Unspecified abdominal pain; G89.29 Other chronic pain; I10 Essential (primary) hypertension; I13.2 Hypertensive heart and chronic kidney disease with heart failure and with stage 5 chronic kidney disease, or end stage renal disease; N18.6 End stage renal disease; I50.9 Heart failure, unspecified; G43.909 Migraine, unspecified, not intractable, without status migrainosus; J45.909 Unspecified asthma, uncomplicated; Z79.899 Other long term (current) drug therapy; Z99.2 Dependence on renal dialysis; Z88.6 Allergy status to analgesic agent; Z88.8 Allergy status to other drugs, medicaments and biological substances
CPT/HCPCS: 36415; 71046; 74176; 80048; 80053; 80061; 84484; 85027; 85610; 93005; 93010; 96372; 99285; J1170

== ENCOUNTER 2019-01-07 09:22 | Inpatient (IN) | payer MEDICARE ==
[2019-01-07] MEDS ORDERED: ZOFRAN IV ONE (09:41)
[2019-01-07] MEDS ORDERED: PEPCID IV ONE (09:41)
[2019-01-07] MEDS ORDERED: BENADRYL IV ONE (09:41)
--- NOTE | 2019-01-07 09:47 | Emergency Department Report ---
HPI - General Chief Complaint: Seizure Time Seen by Provider: 01/07/19 09:36 - HPI HPI: Room 9 The patient is a 28-year-old female presenting with a chief complaint seizure. The patient was brought in by EMS after the brother witnessed a seizure at home. The patient states she's been out of her Keppra for the past 2 weeks. Patient admits to nausea vomiting since last night the patient denies diarrhea or fever. Patient complains of substernal chest pain for 1 day which she attributed to nausea and vomiting last night. Location: [See above] Duration: [See above] Quality: [See above] Severity: [See above] Modifying factors: [see above] Context: [see above] Mode of transportation: [not driving] ED Past Medical Hx - Past Medical History Hx Hypertension: Yes Hx Congestive Heart Failure: Yes Hx Renal Disease: Yes (Tues, Thurs, Sat) Hx Arthritis: Yes Hx Headaches / Migraines: Yes Hx Seizures: Yes (2 seizures last month) Hx Asthma: Yes Additional medical history: Lupus - Surgical History Additional Surgical History: RIGHT ARM graft - Family History Family history: no significant - Social History Smoking Status: Never Smoker Substance Use Type: None - Medications Home Medications: Home Medications Medication Instructions Recorded Confirmed Last Taken Type Furosemide [Lasix] 80 mg PO QDAY #30 tablet 04/23/18 09/11/18 Unknown Rx Albuterol Sulfate [Proair 2 puff IH Q4H PRN #1 pump 07/15/18 09/12/18 Unknown Rx Respiclick] Hydroxychloroquine [Plaquenil] 200 mg PO QDAY #30 tablet 07/24/18 09/11/18 Unknown Rx Clonidine HCl [Catapres] 0.3 mg PO TID 08/11/18 09/11/18 Unknown History Labetalol [Normodyne TAB] 200 mg PO TID 08/11/18 09/12/18 Unknown History Losartan [Cozaar] 100 mg PO QDAY 08/11/18 09/11/18 Unknown History Sertraline [Zoloft] 25 mg PO QDAY 08/11/18 09/11/18 Unknown History hydrALAZINE [Apresoline TAB] 100 mg PO TID 08/11/18 09/11/18 Unknown History HYDROcodone/APAP 10-325 [[place] 1 each PO Q4HR PRN #7 tablet 08/14/18 09/12/18 Unknown Rx 10-325 mg TAB] Phenytoin [Dilantin] 100 mg PO TID #90 capsule.er 08/19/18 09/11/18 Unknown Rx levETIRAcetam [Keppra TAB] 1,000 mg PO BID #60 tablet 08/19/18 09/12/18 Unknown Rx Dicyclomine [Bentyl] 10 mg PO QID PRN #20 capsule 09/10/18 Unknown Rx Ondansetron [Zofran ODT TAB] 4 mg PO Q8HR PRN #20 tab.rapdis 09/10/18 Unknown Rx Methocarbamol [Robaxin-750] 750 mg PO Q6HR PRN #10 tablet 11/12/18 Unknown Rx Metoclopramide HCl [Reglan TAB] 5 mg PO TIDAC PRN #20 tablet 12/15/18 Unknown Rx ED Review of Systems ROS: Stated complaint: SEIZURE Other details as noted in HPI Constitutional: fever (subjective) Eyes: denies: eye pain ENT: denies: throat pain Respiratory: no symptoms reported Endocrine: no symptoms reported Gastrointestinal: nausea, vomiting Musculoskeletal: denies: back pain Neurological: other (seizure) Physical Exam - Physical Exam Physical Exam: GENERAL: The patient is well-developed well-nourished female lying on stretcher appearing to be in mild discomfort. [] HEENT: Normocephalic. Atraumatic. Extraocular motions are intact. Patient has moist mucous membranes. NECK: Supple. Trachea midline CHEST/LUNGS: Clear to auscultation. There is no respiratory distress noted. HEART/CARDIOVASCULAR: Regular. There is no tachycardia. There is no gallop rub or murmur. ABDOMEN: Abdomen is soft, nontender. Patient has normal bowel sounds. There is no abdominal distention. SKIN: There is no rash. There is no edema. There is no diaphoresis. NEURO: The patient is awake, alert, and oriented. The patient is cooperative. The patient has normal speech MUSCULOSKELETAL: There is no evidence of acute injury. ED Course - Consultations Consultation #1: 01/07/19 14:39 Dr. Hardin paged 01/07/19 14:51 Case discussed with [facility] ED Medical Decision Making - Lab Data Result diagrams: 01/07/19 13:19 01/07/19 13:51 Laboratory Tests 01/07/19 01/07/19 13:19 13:51 WBC 6.3 RBC 3.61 L Hgb 11.0 Hct 34.4 MCV 95 MCH 31 MCHC 32 RDW 22.4 H Plt Count 166 Lymph % (Auto) Neon Sign Servicer [place] % (Auto) Neon Sign Servicer Eos % (Auto) Neon Sign Servicer Baso % (Auto) Neon Sign Servicer Lymph # Neon Sign Servicer [place] # Neon Sign Servicer Eos # Neon Sign Servicer Baso # Neon Sign Servicer Seg Neutrophils % Neon Sign Servicer Seg Neutrophils # Neon Sign Servicer Sodium 137 Potassium 6.5 H* Chloride 96.2 L Carbon Dioxide 17 L Anion Gap 30 BUN 67 H Creatinine 14.6 H Estimated GFR 4 BUN/Creatinine Ratio 5 Glucose 73 Calcium 8.4 Total Bilirubin 0.20 AST 10 ALT 5 L Alkaline Phosphatase 148 H Total Protein 7.3 Albumin 3.5 L Albumin/Globulin Ratio 0.9 Lipase 24 - EKG Data -: EKG Interpreted by Me EKG shows normal: sinus rhythm Rate: normal - EKG Data When compared to previous EKG there are: previous EKG unavailable Interpretation: nonspecific ST-T wave brandee (T-wave inversion in lead aVL, V2) - Radiology Data Radiology results: pending (VQ scan, chest x-ray) - Differential Diagnosis seizure, gastritis, PE, pericarditis Critical care attestation.: If time is entered above; I have spent that time in minutes in the direct care of this critically ill patient, excluding procedure time. ED Disposition Clinical Impression: Seizure, Hyperkalemia, Chest pain, ESRD (end stage renal disease) Disposition: 09 OP ADMIT IP TO THIS HOSP Is pt being admited?: Yes Condition: Fair Instructions: Chest Pain (ED) Referrals: [facility] [Other] - 3-5 Days Forms: AMA Form Time of Disposition: 15:04 (hospitalist notified (Dr Henderson))
[2019-01-07] MEDS ORDERED: KEPPRA 1,000 MG in D5W 100 ML IV ONE (10:00)
[2019-01-07] MEDS ORDERED: CATAPRES PO ONE (11:52)
[2019-01-07] MEDS ORDERED: NORCO 5/325 PO ONE (13:33)
[2019-01-07 13:34] LABS: Hematocrit 34.4 % (30.3-42.9); Mean Corpuscular HGB Conc 32 % (30-34); Mean Corpuscular Volume 95 fl (79-97); Platelet Count 166 K/mm3 (140-440); Red Blood Count 3.61 M/mm3 (3.65-5.03); Red Cell Distribution Width 22.4 % (13.2-15.2)
[2019-01-07 14:17] LABS: Albumin 3.5 g/dL (3.9-5); Calcium 8.4 mg/dL (8.4-10.2)
[2019-01-07] MEDS ORDERED: CALCIUM GLUCONATE 1,000 MG in NACL 0.9% 100 ML IV ONE (15:00)
[2019-01-07] MEDS ORDERED: DILAUDID IV ONE (15:02)
--- NOTE | 2019-01-07 15:03 | History and Physical Report ---
History of Present Illness Chief complaint: I had a seizure History of present illness: 28 YO Female with HTN, Nicotine Dependence, Lupus, OA, Cocaine Dependence, Seizure Disorder, Asthma, Migraine Headache, ESRD on HD (T,R,Sa) presents to ED for evaluation. The patient was found by her brother actively having a seizure at her home. EMS was notified and upon arrival the patient was found to be in distress. Pt was transported to [facility]. Pt seen and evaluated in ED and found to have Seizure Disorder secondary to Medication Noncompliance, ESRD, Hypertensive Urgency, as well as fluid overload. Nephrology consulted in ED for urgent dialysis. Pt admitted to medical floor. Pt denies fever, chills, trauma, Palpitations, NVD, Productive cough or recent ill contacts. Prior admission on 11/16/18 Reviewed. All listed medication reconciled at time of exam. Past History Past Medical History: arthritis, ESRD, hypertension, sarcoidosis, other (Cocaine Dependence, SLE, ) Past Surgical History: Other (Dialysis Access) Social history: single, smoking Family history: hypertension Medications and Allergies Allergies Allergy/AdvReac Type Severity Reaction Status Date / Time acetaminophen [From Percocet] Allergy Itching Verified 04/21/18 08:28 lisinopril Allergy Swelling Verified 04/21/18 08:28 metoprolol Allergy Unknown Verified 04/21/18 08:28 oxycodone [From Percocet] Allergy Itching Verified 04/21/18 08:28 oxycodone HCl [From Percocet] AdvReac Unknown Verified 04/21/18 08:28 Home Medications Medication Instructions Recorded Confirmed Last Taken Type Furosemide [Lasix] 80 mg PO QDAY #30 tablet 04/23/18 09/11/18 Unknown Rx Albuterol Sulfate [Proair 2 puff IH Q4H PRN #1 pump 07/15/18 09/12/18 Unknown Rx Respiclick] Hydroxychloroquine [Plaquenil] 200 mg PO QDAY #30 tablet 07/24/18 09/11/18 Unknown Rx Clonidine HCl [Catapres] 0.3 mg PO TID 08/11/18 09/11/18 Unknown History Labetalol [Normodyne TAB] 200 mg PO TID 08/11/18 09/12/18 Unknown History Losartan [Cozaar] 100 mg PO QDAY 08/11/18 09/11/18 Unknown History Sertraline [Zoloft] 25 mg PO QDAY 08/11/18 09/11/18 Unknown History hydrALAZINE [Apresoline TAB] 100 mg PO TID 08/11/18 09/11/18 Unknown History HYDROcodone/APAP 10-325 [[place] 1 each PO Q4HR PRN #7 tablet 08/14/18 09/12/18 Unknown Rx 10-325 mg TAB] Phenytoin [Dilantin] 100 mg PO TID #90 capsule.er 08/19/18 09/11/18 Unknown Rx levETIRAcetam [Keppra TAB] 1,000 mg PO BID #60 tablet 08/19/18 09/12/18 Unknown Rx Dicyclomine [Bentyl] 10 mg PO QID PRN #20 capsule 09/10/18 Unknown Rx Ondansetron [Zofran ODT TAB] 4 mg PO Q8HR PRN #20 tab.rapdis 09/10/18 Unknown Rx Methocarbamol [Robaxin-750] 750 mg PO Q6HR PRN #10 tablet 11/12/18 Unknown Rx Metoclopramide HCl [Reglan TAB] 5 mg PO TIDAC PRN #20 tablet 12/15/18 Unknown Rx Active Meds: Active Medications Calcium Gluconate 1,000 mg/ (Sodium Chloride) 110 mls @ 660 mls/hr IV ONCE ONE Stop: 01/07/19 15:09 Review of Systems Constitutional: no weight loss, no weight gain, no fever, no chills Ears, nose, mouth and throat: no ear pain, no ear discharge, no tinnitis, no decreased hearing, no nose pain Breasts: no change in shape, no swelling, no mass Cardiovascular: shortness of breath, no chest pain, no orthopnea, no palpitations, no rapid/irregular heart beat Respiratory: no cough, no cough with sputum, no excessive sputum, no hemoptysis, no shortness of breath Gastrointestinal: no nausea, no vomiting, no diarrhea, no constipation Genitourinary Female: no pelvic pain, no flank pain, no menorrhagia, no dysuria, no urinary frequency, no urgency Rectal: no pain, no incontinence, no bleeding Musculoskeletal: no neck pain, no shooting arm pain, no arm numbness/tingling, no low back pain, no shooting leg pain Integumentary: no rash, no pruritis, no redness, no sores, no wounds Neurological: seizures, migraines, no paralysis, no weakness, no parathesias, no convulsions, no aphasia, no change in speech Psychiatric: no memory loss, no change in sleep habits, no sleep disturbances, no insomnia, no hypersomnia, no change in appetite Endocrine: no cold intolerance, no heat intolerance, no polyphagia, no excessive thirst, no polyuria Hematologic/Lymphatic: no easy bruising, no easy bleeding, no lymphadenopathy Allergic/Immunologic: no urticaria, no allergic rhinitis, no persistent infections, no anaphylaxis Exam - Constitutional Vitals: Temp Pulse Resp BP Pulse Ox 98.8 F 82 20 175/121 98 01/07/19 09:30 01/07/19 09:30 01/07/19 09:30 01/07/19 12:40 01/07/19 10:30 General appearance: Present: mild distress - EENT Eyes: Present: PERRL ENT: hearing intact, clear oral mucosa - Neck Neck: Present: supple, normal ROM - Respiratory Respiratory effort: normal Respiratory: bilateral: diminished, rhonchi - Cardiovascular Heart Sounds: Present: S1 & S2. Absent: rub, click - Extremities Extremities: pulses symmetrical, No edema Peripheral Pulses: within normal limits - Abdominal General gastrointestinal: Present: soft, non-tender, non-distended, normal bowel sounds Female genitourinary: Present: normal - Integumentary Integumentary: Present: clear, warm, dry - Musculoskeletal Musculoskeletal: gait normal, strength equal bilaterally - Psychiatric Psychiatric: appropriate mood/affect, intact judgment & insight - Neurologic Neurologic: CNII-XII intact, moves all extremities Results - Labs CBC & Chem 7: 01/07/19 13:19 01/07/19 13:51 Labs: Abnormal lab results 01/07/19 01/07/19 Range/Units 13:19 13:51 RBC 3.61 L (3.65-5.03) M/mm3 RDW 22.4 H (13.2-15.2) % Potassium 6.5 H* (3.6-5.0) mmol/L Chloride 96.2 L (98-107) mmol/L Carbon Dioxide 17 L (22-30) mmol/L BUN 67 H (7-17) mg/dL Creatinine 14.6 H (0.7-1.2) mg/dL ALT 5 L (7-56) units/L Alkaline Phosphatase 148 H (35-129) units/L Albumin 3.5 L (3.9-5) g/dL Assessment and Plan - Patient Problems (1) ESRD (end stage renal disease) Current Visit: Yes Status: Acute Plan to address problem: Nephrology consulted in ED for dialysis, monitor uop q shift, renal diet, strict I/O, daily weight, avoid nephrotoxic agents. (2) Nicotine dependence unspecified, with withdrawal Current Visit: Yes Status: Acute Qualifiers: Nicotine product type: cigarettes Qualified Code(s): F17.213 - Nicotine dependence, cigarettes, with withdrawal Plan to address problem: Smoking cessation counseling, supportive care. (3) Acidosis Current Visit: No Status: Acute Plan to address problem: IV bicarbonate therapy, supportive care, repeat bmp in AM. (4) Cocaine dependence Current Visit: No Status: Acute Qualifiers: Substance use status: uncomplicated Qualified Code(s): F14.20 - Cocaine dependence, uncomplicated Plan to address problem: Urine Drug Screen, supportive care, monitor for Si/sx of widhdrawl (5) Hypertensive urgency Current Visit: No Status: Acute Plan to address problem: Resume prehospital medication, montor BP q shift, urgent dialysis, IV hydralazine prn (6) Seizure disorder Current Visit: Yes Status: Acute Plan to address problem: REsume keppra therapy, Pt counseled regarding medication noncompliance. (7) Hyperkalemia Current Visit: Yes Status: Acute Plan to address problem: Calcium gluconate, kayexelate, urgent dialysis, repeat potassium level (8) DVT prophylaxis Current Visit: Yes Status: Acute Plan to address problem: SCD to BLE while in bed, Prophylactic heparin
[2019-01-07] MEDS ORDERED: PROVENTIL IH PRN (15:04)
[2019-01-07] MEDS ORDERED: TYLENOL PO PRN (15:04)
[2019-01-07] MEDS ORDERED: ZOFRAN IV PRN (15:04)
[2019-01-07] MEDS ORDERED: BENTYL PO PRN (15:07)
[2019-01-07] MEDS ORDERED: NON-FORMULARY (Metoclopramide Hcl [Reglan Tab] 5 MG) PO PRN (15:07)
[2019-01-07] MEDS ORDERED: ZOFRAN ODT PO PRN (15:07)
[2019-01-07] MEDS ORDERED: NACL 0.9% 100 ML IV PRN (15:15)
[2019-01-07] MEDS ORDERED: NORCO 10/325 PO PRN (15:22)
--- NOTE | 2019-01-07 15:31 | XRay Report ---
Single view chest: History: Chest pain. Findings: Marked cardiomegaly. Trachea is midline. Mild pulmonary venous congestion. Lower lobe of left lung is obscured by large heart. Left CP angle is not visualized. Right CP angle is normal. Impression: Cardiomegaly. Mild pulmonary venous congestion.
--- NOTE | 2019-01-07 15:35 | Nuclear Medicine Report ---
VENTILATION/PERFUSION LUNG SCAN: 01/07/19 13:41:00 CLINICAL: Chest pain. TECHNIQUE: 15.0 mCi of xenon-133 was administered by aerosol and 5.0 mCi of technetium 99m MAA was administered intravenously. Comparison is made to a same day chest x-ray. FINDINGS: Inhalation of Xenon gas demonstrates a normal distribution of the activity throughout both lungs. The wash out phases show moderate retention of activity in the left upper lobe and left lower lobe. After injection of Technetium 99m macroaggregated albumin gamma camera imaging of the lungs in multiple projections demonstrates normal pulmonary contours with a relatively homogeneous distribution of activity. No suspicious focal areas of perfusion deficiency are identified. IMPRESSION: Low probability for pulmonary embolus.
[2019-01-07] MEDS ORDERED: ATIVAN IV ONE (15:37)
[2019-01-07] MEDS ORDERED: REGLAN PO PRN (15:44)
[2019-01-07] MEDS: DILAUDID IV PRN ×2 (15:50→21:23)
[2019-01-07] MEDS ORDERED: ROBAXIN PO PRN (18:00)
--- NOTE | 2019-01-07 18:08 | Consultation ---
History of Present Illness - History of Present Illness Thank you for the consultation ! Patient was evaluated today at 3:30 PM in the emergency room My assessment and plan are as follows End-stage renal disease in a patient who is 28-year-old with multiple comorbidities continues to be noncompliant with ongoing counseling and education I have seen this patient in previous admission as well and educated her at length today about being compliant with her treatment and taking responsibility for her own health. Hyperkalemia with metabolic acidosis likely due to missing dialysis as well as noncompliance with fluid and diet, patient was adequately counseled and educated It appears the patient is also depressed and anxious, she agrees to a psychiatric evaluation please obtained Uncontrolled hypertension: Needs ongoing monitoring close follow-up hemodialysis today and possibly tomorrow as well Secondary hyperparathyroidism will check phosphorus and PTH level periodically Admitted with seizure disorder noted to be noncompliant history of chronic tobacco and cocaine abuse in the past Consequences of noncompliance including mortality and morbidity risk was discussed with patient She is not a suitable candidate for kidney transplantation my opinion with ongoing chronic health issues I believe she will benefit from a psychiatric evaluation and follow-up. In the outpatient setting so please arrange Likely will require hemodialysis tomorrow morning we will continue to evaluate and make recommendation from renal standpoint Had a detailed discussion with patient about the plan of care from renal standpoint. All questions were answered labs and pertinent imaging findings were explained to the patient and simple Maltese. Prognosis: Guarded/ poor We'll continue to follow and make recommendation from renal standpoint Thank you for the consultation. History of presenting illness; Patient is a 28-year-old -[place] female who has been admitted here with uncontrolled hypertension hyperkalemia and volume overload, patient say that she missed her last dialysis treatment on Friday, and in fact her last dialysis treatment while on Friday last week. Patient say that she was recently admitted to [facility] but did not receive dialysis on . She came in here with uncontrolled hypertension was also noted to be hyperkalemic potassium upon admission was 6.5 bicarbonate 17 patient appeared swollen BUN was 67 creatinine was 14.6, current hemoglobin is around 11.0 And does continue to smoke and has had severe at home Chest x-ray shows evidence of cardiomegaly and pulmonary vascular congestion Patient was also very tearful during the interview and appeared very sad and depressed She agrees to see psychiatrist during this admission Patient has had several admissions like this in the past as well Past medical history significant for End-stage renal disease Anemia in end-stage renal disease Secondary hyperparathyroidism Sarcoidosis cocaine abuse Systemic lupus Noncompliance Hyperkalemia Fluid overload Current allergies: Percocet, lisinopril, metoprolol, oxycodone Home medication present medication: Reviewed Social history ongoing smoking history of cocaine abuse single Family history positive for hypertension Review of system positive for seizure fluid overload uncontrolled hypertension chronic headaches Poor compliance All other review of system negative Physical examination Vitals: Reviewed from this admission Gen.: No acute distress/ ears to be tearful and sad HEENT: Normocephalic/atraumatic skull oral mucosa moist minimal pallor no icterus or uremic order And appears to have facial swelling, puffiness around the eyelids Also does appear to have uremic odor Neck: Supple without any thyromegaly nodular mass or JVD Chest: Clear to auscultation anteriorly few faint basilar crackles otherwise unremarkable Heart: Regular rate and rhythm S1 and S2 heard no S3-S4 no pericardial rub Abdomen: Soft nontender no guarding rigidity rebound organomegaly no suprapubic masses, no CVA tenderness no renal bruit Back: No CVA tenderness Derm: No petechial rashes dry skin Extremity: Pulses palpable no peripheral cyanosis, 2+ edema dry skin Neurological: Alert awake follows commands Psychiatric: No agitation and aggression Labs and x-rays: Were reviewed from this admission Medications and Allergies Allergies Allergy/AdvReac Type Severity Reaction Status Date / Time acetaminophen [From Percocet] Allergy Itching Verified 04/21/18 08:28 lisinopril Allergy Swelling Verified 04/21/18 08:28 metoprolol Allergy Unknown Verified 04/21/18 08:28 oxycodone [From Percocet] Allergy Itching Verified 04/21/18 08:28 oxycodone HCl [From Percocet] AdvReac Unknown Verified 04/21/18 08:28 Home Medications Medication Instructions Recorded Confirmed Last Taken Type Furosemide [Lasix] 80 mg PO QDAY #30 tablet 04/23/18 09/11/18 Unknown Rx Albuterol Sulfate [Proair 2 puff IH Q4H PRN #1 pump 07/15/18 09/12/18 Unknown Rx Respiclick] Hydroxychloroquine [Plaquenil] 200 mg PO QDAY #30 tablet 07/24/18 09/11/18 Unknown Rx Clonidine HCl [Catapres] 0.3 mg PO TID 08/11/18 09/11/18 Unknown History Labetalol [Normodyne TAB] 200 mg PO TID 08/11/18 09/12/18 Unknown History Losartan [Cozaar] 100 mg PO QDAY 08/11/18 09/11/18 Unknown History Sertraline [Zoloft] 25 mg PO QDAY 08/11/18 09/11/18 Unknown History hydrALAZINE [Apresoline TAB] 100 mg PO TID 08/11/18 09/11/18 Unknown History HYDROcodone/APAP 10-325 [[place] 1 each PO Q4HR PRN #7 tablet 08/14/18 09/12/18 Unknown Rx 10-325 mg TAB] Phenytoin [Dilantin] 100 mg PO TID #90 capsule.er 08/19/18 09/11/18 Unknown Rx levETIRAcetam [Keppra TAB] 1,000 mg PO BID #60 tablet 08/19/18 09/12/18 Unknown Rx Dicyclomine [Bentyl] 10 mg PO QID PRN #20 capsule 09/10/18 Unknown Rx Ondansetron [Zofran ODT TAB] 4 mg PO Q8HR PRN #20 tab.rapdis 09/10/18 Unknown Rx Methocarbamol [Robaxin-750] 750 mg PO Q6HR PRN #10 tablet 11/12/18 Unknown Rx Metoclopramide HCl [Reglan TAB] 5 mg PO TIDAC PRN #20 tablet 12/15/18 Unknown Rx Active Meds: Active Medications Acetaminophen (Tylenol) 650 mg PO Q4H PRN PRN Reason: Pain MILD(1-3)/Fever >100.5/WOLFF Acetaminophen/Hydrocodone Bitart ([place] 10/325) 1 each PO Q4H PRN PRN Reason: Pain, Moderate (4-6) Albuterol (Proventil) 2.5 mg IH Q4HRT PRN PRN Reason: Shortness Of Breath Clonidine HCl (Catapres) 0.3 mg PO Q8HR FERNANDO Dicyclomine HCl (Bentyl) 10 mg PO QID PRN PRN Reason: Pain Furosemide (Lasix) 80 mg PO DAILY FERNANDO Hydralazine HCl (Apresoline) 100 mg PO TID FERNANDO Hydromorphone HCl (Dilaudid) 0.5 mg IV Q3H PRN PRN Reason: Pain , Severe (7-10) Last Admin: 01/07/19 15:50 Dose: 0.5 mg Documented by: Hydroxychloroquine Sulfate (Plaquenil) [address] [facility] Sodium Chloride (Nacl 0.9%) 100 mls @ 999 mls/hr IV ALYSSA PRN PRN Reason: Hypotension Labetalol HCl (Normodyne) 200 mg PO TID FERNANDO Levetiracetam (Keppra) 1,000 mg PO BID FERNANDO Losartan Potassium (Cozaar) 100 mg PO QDAY FERNANDO Methocarbamol (Robaxin) 750 mg PO Q6HR PRN PRN Reason: Spasms Metoclopramide HCl (Reglan) 5 mg PO TIDWM PRN PRN Reason: Nausea And Vomiting Ondansetron HCl (Zofran) 4 mg IV Q8H PRN PRN Reason: Nausea And Vomiting Ondansetron HCl (Zofran Odt) 4 mg PO Q8HR PRN PRN Reason: Nausea Phenytoin (Dilantin) 100 mg PO TID FERNANDO Sertraline HCl (Zoloft) [address] [facility] Sodium Chloride (Sodium Chloride Flush Syringe 10 Ml) 10 ml IV BID FERNANDO Sodium Chloride (Sodium Chloride Flush Syringe 10 Ml) 10 ml IV PRN PRN PRN Reason: LINE FLUSH Exam - Vital Signs Vital signs: Vital Signs Temp Pulse Resp BP Pulse Ox 98.8 F 82 20 176/135 100 01/07/19 09:30 01/07/19 09:30 01/07/19 09:30 01/07/19 09:30 01/07/19 09:30 Results - Lab Results 01/07/19 13:19 01/07/19 20:30 Most recent lab results Calcium 8.4 mg/dL (8.4-10.2) 01/07/19 13:51
[2019-01-07] MEDS ORDERED: APRESOLINE IV PRN (18:46)
[2019-01-07] MEDS ORDERED: NON-FORMULARY (Clonidine Hcl [Catapres] 0.3 MG) PO SCH (20:00)
[2019-01-07] MEDS: DILANTIN PO SCH (21:21)
[2019-01-07] MEDS: NORMODYNE PO SCH (21:22)
[2019-01-07] MEDS: APRESOLINE PO SCH (21:23)
[2019-01-07] MEDS: HEPARIN SUB-Q SCH (22:48)
[2019-01-07] MEDS: KEPPRA PO SCH (22:48)
[2019-01-07] MEDS: CATAPRES PO SCH (22:48)
[2019-01-07] MEDS: SODIUM CHLORIDE FLUSH SYRINGE 10 ML IV SCH (22:49)
[2019-01-07] MEDS: IBUPROFEN PO PRN (23:48)
[2019-01-08] MEDS: CATAPRES PO SCH ×3 (06:43→22:25)
[2019-01-08] MEDS: DILANTIN PO SCH ×3 (08:39→20:14)
[2019-01-08] MEDS: APRESOLINE PO SCH ×3 (08:39→20:14)
[2019-01-08] MEDS: NORMODYNE PO SCH ×3 (08:39→20:14)
[2019-01-08] MEDS: DILAUDID IV PRN ×4 (08:47→20:15)
--- NOTE | 2019-01-08 09:04 | Progress Note ---
Subjective Interval history: Patient was seen today for follow-up on multiple renal related issues Events of this hospitalization noted She is feeling much better blood pressure is well-controlled Potassium has normalized Patient denies having any chest pain pressure or shortness of breath Vitals labs intake output medications were reviewed Social history: Reviewed Allergies: Reviewed Family history: Reviewed Physical examination HEENT: Oral mucosa moist no pallor or icterus Neck: Supple no JVD Chest: Clear to auscultation anteriorly CVS: Regular rate and rhythm S1 and S2 heard Abdomen: Soft nontender no suprapubic masses no organomegaly appreciable Extremity: Dry skin less than 1+ peripheral edema Musculoskeletal: No joint effusion noted in knees and ankle Neurological: Alert awake Dermatology: No petechial rashes Psychiatry: No evidence of any agitation and aggression noted Assessment and plan; End-stage renal disease: Patient will continue with hemodialysis, will require another dialysis treatment today for at least 3 hours to manage her volume Normal dialysis days are Friday and Friday. Missed dialysis mayi atment on Anemia in end-stage renal disease: Monitor hemoglobin and hematocrit, erythropoietin as needed current hemoglobin appears to be satisfactory Secondary hyperparathyroidism periodically check phosphorus and PTH level, goal phosphorus less than 5.5 PTH less than 600, educated about renal osteodystrophy Hypertension and volume: , Adjust medications as needed, ultrafiltration as etelvina erated keep systolic blood pressure above 100 blood pressure now is well controlled mostly resulting from noncompliance, Malnutrition risk: High please consider high protein diet as well as nutrition follow-up, patient needs at least 1.5 g protein per KG body weight Dialysis access: Currently working well, discussed about monitoring Depression anxiety likely, patient will need to be seen by psychiatrist Dietary counseling and education: Done at length to improve outcome with end- stage renal disease Patient was also educated about the hospital related comorbidities Overall prognosis appears to be guarded due to end-stage renal disease, dialysis status and other comorbidities Noncompliance: Consequences of noncompliance were discussed with patient including mortality and morbidity risk Patient was adequately counseled and educated regarding multiple renal related issues Pertinent lab findings were discussed with patient and patient does exhibit good understanding of renal issues. We'll continue to follow and make recommendation from renal standpoint Objective - Vital Signs Vital signs: Vital Signs - 12hr 01/07/19 01/07/19 01/07/19 21:22 21:23 21:53 Temperature Pulse Rate 86 Respiratory 24 22 Rate Respiratory Rate [Bilateral Leg] Respiratory Rate [ Generalized] Blood Pressure 174/106 O2 Sat by Pulse Oximetry 01/07/19 01/07/19 01/07/19 22:00 22:48 23:48 Temperature Pulse Rate 124 H Respiratory 18 20 Rate Respiratory 18 Rate [Bilateral Leg] Respiratory 18 Rate [ Generalized] Blood Pressure 134/79 O2 Sat by Pulse Oximetry 01/08/19 01/08/19 01/08/19 00:48 05:03 06:43 Temperature 98.3 F Pulse Rate 87 87 Respiratory 18 20 Rate Respiratory Rate [Bilateral Leg] Respiratory Rate [ Generalized] Blood Pressure 120/81 120/81 O2 Sat by Pulse 95 Oximetry 01/08/19 08:39 Temperature Pulse Rate Respiratory Rate Respiratory Rate [Bilateral Leg] Respiratory Rate [ Generalized] Blood Pressure 140/91 O2 Sat by Pulse Oximetry - Lab 01/07/19 13:19 01/07/19 20:30 Most recent lab results Calcium 8.4 mg/dL (8.4-10.2) 01/07/19 13:51 Medications & Allergies - Medications Allergies/Adverse Reactions: Allergies acetaminophen [From Percocet] Allergy (Verified 04/21/18 08:28) Itching lisinopril Allergy (Verified 04/21/18 08:28) Swelling metoprolol Allergy (Verified 04/21/18 08:28) Unknown oxycodone [From Percocet] Allergy (Verified 04/21/18 08:28) Itching oxycodone HCl [From Percocet] Adverse Reaction (Verified 04/21/18 08:28) Unknown Home Medications: Home Medications Medication Instructions Recorded Confirmed Last Taken Type Furosemide [Lasix] 80 mg PO QDAY #30 tablet 04/23/18 09/11/18 Unknown Rx Albuterol Sulfate [Proair 2 puff IH Q4H PRN #1 pump 07/15/18 09/12/18 Unknown Rx Respiclick] Hydroxychloroquine [Plaquenil] 200 mg PO QDAY #30 tablet 07/24/18 09/11/18 Unknown Rx Clonidine HCl [Catapres] 0.3 mg PO TID 08/11/18 09/11/18 Unknown History Labetalol [Normodyne TAB] 200 mg PO TID 08/11/18 09/12/18 Unknown History Losartan [Cozaar] 100 mg PO QDAY 08/11/18 09/11/18 Unknown History Sertraline [Zoloft] 25 mg PO QDAY 08/11/18 09/11/18 Unknown History hydrALAZINE [Apresoline TAB] 100 mg PO TID 08/11/18 09/11/18 Unknown History HYDROcodone/APAP 10-325 [[place] 1 each PO Q4HR PRN #7 tablet 08/14/18 09/12/18 Unknown Rx 10-325 mg TAB] Phenytoin [Dilantin] 100 mg PO TID #90 capsule.er 08/19/18 09/11/18 Unknown Rx levETIRAcetam [Keppra TAB] 1,000 mg PO BID #60 tablet 08/19/18 09/12/18 Unknown Rx Dicyclomine [Bentyl] 10 mg PO QID PRN #20 capsule 09/10/18 Unknown Rx Ondansetron [Zofran ODT TAB] 4 mg PO Q8HR PRN #20 tab.rapdis 09/10/18 Unknown Rx Methocarbamol [Robaxin-750] 750 mg PO Q6HR PRN #10 tablet 11/12/18 Unknown Rx Metoclopramide HCl [Reglan TAB] 5 mg PO TIDAC PRN #20 tablet 12/15/18 Unknown Rx Active Medications: Generic Name Dose Route Start Last Admin Trade Name Freq PRN Reason Stop Dose Admin Acetaminophen/Hydrocodone Bitart 1 each 01/07/19 15:22 [place] 10/325 PO Q4H PRN Pain, Moderate (4-6) Albuterol 2.5 mg 01/07/19 15:04 Proventil IH Q4HRT PRN Shortness Of Breath Clonidine HCl 0.3 mg 01/07/19 22:00 01/08/19 06:43 Catapres PO Not Given Q8HR FERNANDO Dicyclomine HCl 10 mg 01/07/19 15:07 Bentyl PO QID PRN Pain Diphenhydramine HCl 25 mg 01/08/19 02:18 Benadryl IV Q6H PRN Itching Furosemide 80 mg 01/08/19 10:00 Lasix PO DAILY FERNANDO Heparin Sodium (Porcine) 5,000 unit 01/07/19 22:00 01/07/19 22:48 Heparin SUB-Q Not Given Q12HR FERNANDO Hydralazine HCl 100 mg 01/07/19 20:00 01/08/19 08:39 Apresoline PO 100 mg TID FERNANDO Administration Hydralazine HCl 10 mg 01/07/19 18:46 Apresoline IV Q4HR PRN Hypertension Hydromorphone HCl 0.5 mg 01/07/19 15:04 01/08/19 08:47 Dilaudid IV 0.5 mg Q3H PRN Administration Pain , Severe (7-10) Hydroxychloroquine Sulfate 200 mg 01/08/19 10:00 Plaquenil PO QDAY [facility] Sodium Chloride 100 mls @ 999 mls/hr 01/07/19 15:15 Nacl 0.9% IV ALYSSA PRN Hypotension Ibuprofen 600 mg 01/07/19 22:52 01/07/19 23:48 Motrin PO 600 mg Q6H PRN Administration Fever >101 Labetalol HCl 200 mg 01/07/19 20:00 01/08/19 08:39 Normodyne PO 200 mg TID FERNANDO Administration Levetiracetam 1,000 mg 01/07/19 22:00 01/07/19 22:48 Keppra PO 1,000 mg BID [facility] Administration Losartan Potassium 100 mg 01/08/19 10:00 Cozaar PO QDAY FERNANDO Methocarbamol 750 mg 01/07/19 18:00 Robaxin PO Q6HR PRN Spasms Metoclopramide HCl 5 mg 01/07/19 15:44 Reglan PO TIDWM PRN Nausea And Vomiting Ondansetron HCl 4 mg 01/07/19 15:04 01/07/19 21:24 Zofran IV 4 mg Q8H PRN Administration Nausea And Vomiting Ondansetron HCl 4 mg 01/07/19 15:07 Zofran Odt PO Q8HR PRN Nausea Phenytoin 100 mg 01/07/19 20:00 01/08/19 08:39 Dilantin PO 100 mg TID FERNANDO Administration Sertraline HCl 25 mg 01/08/19 10:00 Zoloft PO QDAY FERNANDO Sodium Chloride 10 ml 01/07/19 22:00 01/07/19 22:49 Sodium Chloride Flush Syringe 10 Ml IV 10 ml BID FERNANDO Administration Sodium Chloride 10 ml 01/07/19 15:04 Sodium Chloride Flush Syringe 10 Ml IV PRN PRN LINE FLUSH
[2019-01-08] MEDS ORDERED: NACL 0.9% 100 ML IV PRN (09:18)
[2019-01-08] MEDS ORDERED: NON-FORMULARY (Furosemide [Lasix] 80 MG) PO SCH (10:00)
[2019-01-08] MEDS ORDERED: NON-FORMULARY (Losartan [Cozaar] 100 MG) PO SCH (10:00)
[2019-01-08] MEDS ORDERED: NACL 0.9 (PRIMING MACHINE ONLY DIALYSIS) MC ONE (10:27)
[2019-01-08] MEDS: BENADRYL IV PRN ×3 (10:43→22:22)
[2019-01-08] MEDS: KEPPRA PO SCH ×2 (14:31→22:25)
[2019-01-08] MEDS: LASIX PO SCH (14:31)
[2019-01-08] MEDS: PLAQUENIL PO SCH (14:31)
[2019-01-08] MEDS: COZAAR PO SCH (14:32)
[2019-01-08] MEDS: SODIUM CHLORIDE FLUSH SYRINGE 10 ML IV SCH ×2 (14:32→22:23)
[2019-01-08] MEDS: HEPARIN SUB-Q SCH ×2 (14:32→22:24)
[2019-01-08] MEDS: ZOLOFT PO SCH (14:40)
--- NOTE | 2019-01-08 17:16 | Cat Scan Report ---
PROCEDURE: CT HEAD/BRAIN WO CON TECHNIQUE: CT of the head was performed without intravenous contrast. HISTORY: seizure COMPARISONS: 08/18/2018. FINDINGS: The ventricles are normal in position and shape. The ventricles are nondilated. No intracranial hemorrhage, mass, mass effect or evidence of acute ischemic infarct. The basilar cisterns are patent. The paranasal sinuses are clear. The mastoid air cells are clear. The orbits are intact. The calvarium is intact. No extracranial soft tissue swelling. IMPRESSION: No acute intracranial abnormality. This document is electronically signed by Idalia Leach., Jan 08 2019 05:14:04 PM ET
[2019-01-08] MEDS: SODIUM CHLORIDE FLUSH SYRINGE 10 ML IV PRN (20:17)
[2019-01-09] MEDS: IBUPROFEN PO PRN (00:07)
[2019-01-09] MEDS: CATAPRES PO SCH ×2 (06:20→14:00)
[2019-01-09] MEDS: DILAUDID IV PRN ×3 (07:07→17:45)
[2019-01-09] MEDS: BENADRYL IV PRN ×3 (07:07→17:52)
[2019-01-09] MEDS: SODIUM CHLORIDE FLUSH SYRINGE 10 ML IV PRN (07:14)
[2019-01-09] MEDS: APRESOLINE PO SCH ×2 (08:00→14:00)
[2019-01-09] MEDS: HEPARIN SUB-Q SCH (10:00)
[2019-01-09] MEDS: COZAAR PO SCH (10:00)
[2019-01-09] MEDS: NORMODYNE PO SCH ×2 (11:11→14:00)
[2019-01-09] MEDS: ZOLOFT PO SCH (11:16)
[2019-01-09] MEDS: KEPPRA PO SCH (11:16)
[2019-01-09] MEDS: PLAQUENIL PO SCH (11:17)
[2019-01-09] MEDS: DILANTIN PO SCH ×2 (11:17→14:00)
[2019-01-09] MEDS: LASIX PO SCH (11:17)
[2019-01-09] MEDS: SODIUM CHLORIDE FLUSH SYRINGE 10 ML IV SCH (12:07)
[2019-01-09] MEDS ORDERED: NACL 0.9% 100 ML IV PRN (12:40)
--- NOTE | 2019-01-09 13:36 | Progress Note ---
Assessment and Plan / ESRD (end stage renal disease) Nephrology consulted in ED for dialysis, renal diet, daily weight, avoid nephrotoxic agents. / Nicotine dependence unspecified, Smoking cessation counseling, supportive care. /Metabolic Acidosis IV bicarbonate therapy, supportive care, repeat bmp in AM. / Cocaine dependence + Urine Drug Screen, counselled for cessation / Hypertensive urgency Resumed home medication, montor BP q shift, urgent dialysis, IV hydralazine prn / Seizure disorder with breakthrough episode, POA REsume keppra therapy, Pt counseled regarding medication noncompliance. /Hyperkalemia s/p Calcium gluconate, kayexelate, urgent dialysis, / DVT prophylaxis: SCD to BLE while in bed, Prophylactic heparin Disposition: likely tomorrow if clinically stable Subjective Date of service: 01/09/19 Interval history: Patient seen and examined No acute event O/n no seizure like activity denies chest pain or SOB Objective - Constitutional Vitals: Vital Signs - 12hr 01/09/19 01/09/19 01/09/19 02:55 06:20 07:37 Temperature 98.6 F Pulse Rate 91 H Respiratory 20 Rate Blood Pressure 113/79 O2 Sat by Pulse Oximetry 01/09/19 01/09/19 01/09/19 09:02 11:11 12:05 Temperature Pulse Rate Respiratory 20 Rate Blood Pressure 113/79 O2 Sat by Pulse 96 Oximetry 01/09/19 12:14 Temperature 98.1 F Pulse Rate 91 H Respiratory 19 Rate Blood Pressure O2 Sat by Pulse 95 Oximetry General appearance: Present: no acute distress, well-nourished - EENT Eyes: PERRL, EOM intact ENT: hearing intact, clear oral mucosa Ears: bilateral: normal - Neck Neck: supple, normal ROM - Respiratory Respiratory effort: normal Respiratory: bilateral: CTA - Cardiovascular Rhythm: regular Heart Sounds: Present: S1 & S2. Absent: gallop, rub Extremities: pulses intact, No edema, normal color, Full ROM - Gastrointestinal General gastrointestinal: Present: soft, non-tender, non-distended, normal bowel sounds - Integumentary Integumentary: clear, warm, dry - Musculoskeletal Musculoskeletal: 1, strength equal bilaterally - Neurologic Neurologic: moves all extremities - Psychiatric Psychiatric: memory intact, appropriate mood/affect, intact judgment & insight - Labs CBC & Chem 7: 01/07/19 13:19 01/07/19 20:30
[2019-01-09] MEDS ORDERED: NACL 0.9 (PRIMING MACHINE ONLY DIALYSIS) MC ONE (14:38)
--- NOTE | 2019-01-09 15:42 | Discharge Summary ---
Providers - Providers Date of Admission: 01/07/19 15:04 Date of discharge: 01/09/19 Attending physician: ISMAEL MAN 01/07/19 15:06 Consult to Physician [CONS] Routine Comment: Consulting Provider: ULYSSES YO Physician Instructions: Reason For Exam: esrd Hospitalization Condition: Fair Pertinent studies: Head CT VQ scan CXR Hospital course: 28 YO Female with HTN, Nicotine Dependence, Lupus, OA, Cocaine Dependence, Seizure Disorder, Asthma, Migraine Headache, ESRD on HD (T,R,Sa) presented to ED for evaluation after having a seizure at her home. EMS was notified and was transported to [facility]. Patient was seen and evaluated in ED and found to have Seizure Disorder secondary to Medication Noncompliance, ESRD, Hypertensive Urgency, as well as fluid overload. Nephrology consulted in ED for urgent dialysis, treated for hyperkalemia, metabolic acidosis, resumed AED, monitored BP and adjusted medications. Patient was medically stabilized, counseled for med compliance and was then discharged home in stable condition. Discharge diagnosis: / ESRD (end stage renal disease) Nephrology consulted for emergent dialysis, / Nicotine dependence unspecified, Smoking cessation counseling done, /Metabolic Acidosis due to ESRD s/p IV bicarbonate therapy, / Cocaine dependence + Urine Drug Screen, counselled for cessation / Hypertensive urgency, improved Resumed home medication, given IV hydralazine prn / Seizure disorder with breakthrough episode, POA due to noncompliance REsumed keppra therapy, Pt counseled regarding medication noncompliance. /Hyperkalemia, resolved s/p Calcium gluconate, kayexelate, urgent dialysis, / DVT prophylaxis: SCD to BLE while in bed, Prophylactic heparin Disposition: home Disposition: DC-01 TO HOME OR SELFCARE Time spent for discharge: 34 minutes Core Measure Documentation - Palliative Care Palliative Care/ Comfort Measures: Not Applicable - Core Measures Any of the following diagnoses?: none Exam - Constitutional Vitals: Temp Pulse Resp BP Pulse Ox 98.1 F 101 H 19 127/94 95 01/09/19 13:08 01/09/19 15:36 01/09/19 13:08 01/09/19 15:36 01/09/19 12:14 General appearance: Present: no acute distress, well-nourished - EENT Eyes: Present: PERRL ENT: hearing intact, clear oral mucosa - Neck Neck: Present: supple, normal ROM - Respiratory Respiratory effort: normal Respiratory: bilateral: CTA - Cardiovascular Heart Sounds: Present: S1 & S2. Absent: rub, click - Extremities Extremities: pulses symmetrical, No edema Peripheral Pulses: within normal limits - Abdominal General gastrointestinal: Present: soft, non-tender, non-distended, normal bowel sounds - Integumentary Integumentary: Present: clear, warm, dry - Musculoskeletal Musculoskeletal: gait normal, strength equal bilaterally - Psychiatric Psychiatric: appropriate mood/affect, intact judgment & insight - Neurologic Neurologic: CNII-XII intact, moves all extremities Plan Activity: advance as tolerated Weight Bearing Status: Weight Bear as Tolerated Diet: renal Follow up with: MAR SERRATO [Other] - 3-5 Days
--- NOTE | 2019-01-09 17:25 | Progress Note ---
Assessment and Plan - Patient Problems (1) ESRD (end stage renal disease) Current Visit: Yes Status: Acute Plan to address problem: End-stage renal disease will initiate dialysis she is noncompliant and is terminating dialysis sessions daily (2) Seizure disorder Current Visit: Yes Status: Acute Plan to address problem: Seizure disorder continue medications (3) Accelerated hypertension Current Visit: No Status: Acute Plan to address problem: Hypertension uncontrolled optimize volume status (4) Anemia Current Visit: No Status: Acute Plan to address problem: Mild anemia hemoglobin 11g/dl hold erythropoiesis stimulating agents at this time Subjective Interval history: 28-year-old with ESRD on dialysis in right arm AV fistula admitted with concern for seizures Patient seen on dialysis Objective - Vital Signs Vital signs: Vital Signs - 12hr 01/09/19 01/09/19 01/09/19 06:20 07:37 09:02 Temperature Pulse Rate 91 H Respiratory 20 Rate Blood Pressure 113/79 O2 Sat by Pulse 96 Oximetry 01/09/19 01/09/19 01/09/19 11:11 12:05 12:14 Temperature 98.1 F Pulse Rate 91 H Respiratory 20 19 Rate Blood Pressure 113/79 O2 Sat by Pulse 95 Oximetry 01/09/19 01/09/19 01/09/19 13:08 13:15 13:30 Temperature 98.1 F Pulse Rate 90 89 93 H Respiratory 19 Rate Blood Pressure 130/86 142/93 136/92 O2 Sat by Pulse Oximetry 01/09/19 01/09/19 01/09/19 13:45 14:00 14:15 Temperature Pulse Rate 96 H 107 H 99 H Respiratory Rate Blood Pressure 123/83 138/94 124/86 O2 Sat by Pulse Oximetry 01/09/19 01/09/19 01/09/19 14:30 14:45 15:00 Temperature Pulse Rate 97 H 96 H 99 H Respiratory Rate Blood Pressure 124/82 129/90 127/93 O2 Sat by Pulse Oximetry 01/09/19 01/09/19 01/09/19 15:15 15:36 15:45 Temperature Pulse Rate 103 H 101 H 104 H Respiratory Rate Blood Pressure 130/95 127/94 123/86 O2 Sat by Pulse Oximetry 01/09/19 15:55 Temperature 98.1 F Pulse Rate 107 H Respiratory 19 Rate Blood Pressure 144/99 O2 Sat by Pulse Oximetry - General Appearance General appearance: well-developed, well-nourished EENT: ATNC, PERRL Neck: no JVD Respiratory: Present: Clear to Ascultation Cardiology: regular, S1S2 Gastrointestinal: normal, normoactive bowel sounds Integumentary: no rash Neurologic: no focal deficit, CN 3-12 intact Psychiatric: mood/affect appropriate - Lab 01/07/19 13:19 01/07/19 20:30 Most recent lab results Calcium 8.4 mg/dL (8.4-10.2) 01/07/19 13:51 Medications & Allergies - Medications Allergies/Adverse Reactions: Allergies acetaminophen [From Percocet] Allergy (Verified 04/21/18 08:28) Itching lisinopril Allergy (Verified 04/21/18 08:28) Swelling metoprolol Allergy (Verified 04/21/18 08:28) Unknown oxycodone [From Percocet] Allergy (Verified 04/21/18 08:28) Itching oxycodone HCl [From Percocet] Adverse Reaction (Verified 04/21/18 08:28) Unknown Home Medications: Home Medications Medication Instructions Recorded Confirmed Last Taken Type Albuterol Sulfate [Proair 2 puff IH Q4H PRN #1 pump 07/15/18 09/12/18 Unknown Rx Respiclick] Hydroxychloroquine [Plaquenil] 200 mg PO QDAY #30 tablet 07/24/18 09/11/18 Unknown Rx Clonidine HCl [Catapres] 0.3 mg PO TID 08/11/18 09/11/18 Unknown History Labetalol [Normodyne TAB] 200 mg PO TID 08/11/18 09/12/18 Unknown History Sertraline [Zoloft] 25 mg PO QDAY 08/11/18 09/11/18 Unknown History hydrALAZINE [Apresoline TAB] 100 mg PO TID 08/11/18 09/11/18 Unknown History HYDROcodone/APAP 10-325 [[place] 1 each PO Q4HR PRN #7 tablet 08/14/18 09/12/18 Unknown Rx 10-325 mg TAB] levETIRAcetam [Keppra TAB] 1,000 mg PO BID #60 tablet 08/19/18 09/12/18 Unknown Rx Dicyclomine [Bentyl] 10 mg PO QID PRN #20 capsule 09/10/18 Unknown Rx Ondansetron [Zofran ODT TAB] 4 mg PO Q8HR PRN #20 tab.rapdis 09/10/18 Unknown Rx Methocarbamol [Robaxin-750] 750 mg PO Q6HR PRN #10 tablet 11/12/18 Unknown Rx Metoclopramide HCl [Reglan TAB] 5 mg PO TIDAC PRN #20 tablet 12/15/18 Unknown Rx Phenytoin [Dilantin] 100 mg PO TID #90 capsule.er 01/09/19 Unknown Rx Active Medications: Generic Name Dose Route Start Last Admin Trade Name Freq PRN Reason Stop Dose Admin Acetaminophen/Hydrocodone [place] 1 each 01/07/19 15:22 [place] 10/325 PO Q4H PRN Pain, Moderate (4-6) Albuterol 2.5 mg 01/07/19 15:04 Proventil IH Q4HRT PRN Shortness Of Breath Clonidine HCl 0.3 mg 01/07/19 22:00 01/09/19 06:20 Catapres PO 0.3 mg Q8HR FERNANDO Administration Dicyclomine HCl 10 mg 01/07/19 15:07 Bentyl PO QID PRN Pain Diphenhydramine HCl 25 mg 01/08/19 02:18 01/09/19 12:05 Benadryl IV 25 mg Q6H PRN Administration Itching Furosemide 80 mg 01/08/19 10:00 01/09/19 11:17 Lasix PO 80 mg DAILY FERNANDO Administration Heparin Sodium (Porcine) 5,000 unit 01/07/19 22:00 01/09/19 10:00 Heparin SUB-Q Not Given Q12HR FERNANDO Hydralazine HCl 100 mg 01/07/19 20:00 01/09/19 08:00 Apresoline PO Not Given TID FERNANDO Hydralazine HCl 10 mg 01/07/19 18:46 Apresoline IV Q4HR PRN Hypertension Hydromorphone HCl 0.5 mg 01/07/19 15:04 01/09/19 12:05 Dilaudid IV 0.5 mg Q3H PRN Administration Pain , Severe (7-10) Hydroxychloroquine Sulfate 200 mg 01/08/19 10:00 01/09/19 11:17 Plaquenil PO 200 mg QDAY FERNANDO Administration Sodium Chloride 100 mls @ 999 mls/hr 01/08/19 09:18 Nacl 0.9% IV ALYSSA PRN Hypotension Sodium Chloride 100 mls @ 999 mls/hr 01/09/19 12:40 Nacl 0.9% IV ALYSSA PRN Hypotension Ibuprofen 600 mg 01/07/19 22:52 01/09/19 00:07 Motrin PO 600 mg Q6H PRN Administration Fever >101 Labetalol HCl 200 mg 01/07/19 20:00 01/09/19 11:11 Normodyne PO Not Given TID FERNANDO Levetiracetam 1,000 mg 01/07/19 22:00 01/09/19 11:16 Keppra PO 1,000 mg BID FERNANDO Administration Losartan Potassium 100 mg 01/08/19 10:00 01/09/19 10:00 Cozaar PO Not Given QDAY FERNANDO Methocarbamol 750 mg 01/07/19 18:00 Robaxin PO Q6HR PRN Spasms Metoclopramide HCl 5 mg 01/07/19 15:44 Reglan PO TIDWM PRN Nausea And Vomiting Ondansetron HCl 4 mg 01/07/19 15:04 01/07/19 21:24 Zofran IV 4 mg Q8H PRN Administration Nausea And Vomiting Ondansetron HCl 4 mg 01/07/19 15:07 Zofran Odt PO Q8HR PRN Nausea Phenytoin 100 mg 01/07/19 20:00 01/09/19 11:17 Dilantin PO 100 mg TID FERNANDO Administration Sertraline HCl 25 mg 01/08/19 10:00 01/09/19 11:16 Zoloft PO 25 mg QDAY FERNANDO Administration Sodium Chloride 10 ml 01/07/19 22:00 01/09/19 12:07 Sodium Chloride Flush Syringe 10 Ml IV 10 ml BID FERNANDO Administration Sodium Chloride 10 ml 01/07/19 15:04 01/09/19 07:14 Sodium Chloride Flush Syringe 10 Ml IV 10 ml PRN PRN Administration LINE FLUSH
[2019-01-09 17:33] VITALS: BP 134/86
== END 2019-01-09 19:00 | disposition home or self-care (01) | DRG 100 ==
LOC: ED 09:22 → 3A 15:04
PROVIDERS: ADMIT Internal Medicine; ATTEND Internal Medicine
PROC: 5A1D70Z Performance of Urinary Filtration, Intermittent, Less than 6 Hours Per Day (ICD-10-PCS; principal; 2019-01-07)
PROC: 5A1D70Z Performance of Urinary Filtration, Intermittent, Less than 6 Hours Per Day (ICD-10-PCS; 2019-01-08)
PROC: 5A1D70Z Performance of Urinary Filtration, Intermittent, Less than 6 Hours Per Day (ICD-10-PCS; 2019-01-09)
DX: G40.909 Epilepsy, unspecified, not intractable, without status epilepticus (principal); N18.6 End stage renal disease; F14.20 Cocaine dependence, uncomplicated; F17.213 Nicotine dependence, cigarettes, with withdrawal; N25.81 Secondary hyperparathyroidism of renal origin; E87.2 Acidosis; I13.2 Hypertensive heart and chronic kidney disease with heart failure and with stage 5 chronic kidney disease, or end stage renal disease; I16.0 Hypertensive urgency; E87.5 Hyperkalemia; M19.90 Unspecified osteoarthritis, unspecified site; J45.909 Unspecified asthma, uncomplicated; G43.909 Migraine, unspecified, not intractable, without status migrainosus; I50.9 Heart failure, unspecified; D63.1 Anemia in chronic kidney disease; Z71.6 Tobacco abuse counseling; Z71.51 Drug abuse counseling and surveillance of drug abuser; Z91.14 Patient's other noncompliance with medication regimen; Z82.49 Family history of ischemic heart disease and other diseases of the circulatory system; Z88.5 Allergy status to narcotic agent; Z79.899 Other long term (current) drug therapy
CPT/HCPCS: 36415; 70450; 71045; 78582; 80053; 83690; 84132; 85025; 87040; 87116; 93005; 93010; 96365; 96375; G0378; A9540; A9558; J0610; J1170; J1200; J1644; J1953; J2060; J2405; J7030

== ENCOUNTER 2019-02-13 06:26 | Inpatient (IN) | payer MEDICARE ==
--- NOTE | 2019-02-13 07:10 | XRay Report ---
PROCEDURE: XR CHEST 1V AP TECHNIQUE: Chest radiograph single view. HISTORY: Chest Pain COMPARISONS: 12/14/2018 . FINDINGS: Heart: The heart is mild to moderately enlarged.. Mediastinum/Vessels: The lungs are not overtly congested.. Lungs/Pleural space: There is linear scarring in the left lung base. There is mild atelectatic geiger es in the right lower lobe.. Pleural fluid is not seen. Bony thorax: No acute osseous abnormality. Life support devices: There is vascular stent in the left axillary. IMPRESSION: Cardiomegaly. Stable scarring in the left lung base. Very mild atelectasis in the right lower lobe... This document is electronically signed by Gray Vicente MD., February 13 2019 07:09:06 AM ET
[2019-02-13 08:53] LABS: BUN/Creatinine Ratio 5; Blood Urea Nitrogen 41 mg/dL (7-17); Calcium 8.6 mg/dL (8.4-10.2); Hemolysis Index 208
[2019-02-13 09:02] LABS: Hematocrit 34.9 % (30.3-42.9); Hemoglobin 11.5 gm/dl (10.1-14.3); Red Blood Count 3.64 M/mm3 (3.65-5.03); Red Cell Distribution Width 22.2 % (13.2-15.2)
[2019-02-13] MEDS ORDERED: ZOFRAN IV ONE ×2 (10:39→11:53)
[2019-02-13] MEDS ORDERED: APRESOLINE IV ONE (10:39)
[2019-02-13] MEDS ORDERED: MORPHINE IV ONE (10:39)
--- NOTE | 2019-02-13 10:44 | Emergency Department Report ---
ED Chest Pain HPI - General Chief Complaint: Chest Pain Stated Complaint: CP Time Seen by Provider: 02/13/19 10:34 Source: patient, EMS Mode of arrival: Wheelchair Limitations: No Limitations - History of Present Illness Initial Comments: Patient is 28 years old female with history of end-stage renal disease on hemodialysis. Patient also had history of lupus. Patient presented to the ER complaining of left-sided chest pain, sharp in nature and increased with inspiration. Patient supposed to have dialysis today but instead she came to the ER because of chest pain. Patient denied any shortness of breath. Patient found to have a blood pressure of 199/123. Patient denied any fever or chills or cough. MD Complaint: chest pain Onset: during rest Pain Location: left chest Severity scale (0 -10): 8 Quality: sharp Consistency: constant - Related Data Home Medications Medication Instructions Recorded Confirmed Last Taken Clonidine HCl [Catapres] 0.3 mg PO TID 08/11/18 02/13/19 Unknown Labetalol [Labetalol 200mg TAB] 200 mg PO TID 08/11/18 02/13/19 Unknown Sertraline [Zoloft] 25 mg PO QDAY 08/11/18 02/13/19 Unknown hydrALAZINE [Apresoline TAB] 100 mg PO TID 08/11/18 02/13/19 Unknown Previous Rx's Medication Instructions Recorded Last Taken Type Albuterol Sulfate [Proair 2 puff IH Q4H PRN #1 pump 07/15/18 Unknown Rx Respiclick] Hydroxychloroquine [Plaquenil] 200 mg PO QDAY #30 tablet 07/24/18 Unknown Rx HYDROcodone/APAP 10-325 [[place] 1 each PO Q4HR PRN #7 tablet 08/14/18 Unknown Rx 10-325 mg TAB] Dicyclomine [Bentyl] 10 mg PO QID PRN #20 capsule 09/10/18 Unknown Rx Ondansetron [Zofran ODT TAB] 4 mg PO Q8HR PRN #20 tab.rapdis 09/10/18 Unknown Rx Methocarbamol [Robaxin-750] 750 mg PO Q6HR PRN #10 tablet 11/12/18 Unknown Rx Metoclopramide HCl [Reglan TAB] 5 mg PO TIDAC PRN #20 tablet 12/15/18 Unknown Rx Phenytoin [Dilantin] 100 mg PO TID #90 capsule.er 01/16/19 Unknown Rx levETIRAcetam [Keppra TAB] 1,000 mg PO BID #60 tablet 01/16/19 Unknown Rx Allergies Allergy/AdvReac Type Severity Reaction Status Date / Time acetaminophen [From Percocet] Allergy Itching Verified 04/21/18 08:28 lisinopril Allergy Swelling Verified 04/21/18 08:28 metoprolol Allergy Unknown Verified 04/21/18 08:28 oxycodone [From Percocet] Allergy Itching Verified 04/21/18 08:28 oxycodone HCl [From Percocet] AdvReac Unknown Verified 04/21/18 08:28 Heart Score - HEART Score History: Slightly suspicious EKG: Non-specific Age: < 45 Risk factors: 1-2 risk factors Troponin: < normal limit HEART Score: 2 - Critical Actions Critical Actions: 0-3 pts:0.9-1.7%risk of adverse cardiac event.Candidate for discharge ED Review of Systems ROS: Stated complaint: CP Other details as noted in HPI Comment: All other systems reviewed and negative Constitutional: denies: chills, fever Respiratory: denies: cough, orthopnea, shortness of breath, SOB with exertion, SOB at rest, wheezing Cardiovascular: chest pain Gastrointestinal: denies: abdominal pain, nausea, vomiting, diarrhea, constipation, hematemesis, melena, hematochezia Musculoskeletal: denies: back pain Neurological: denies: headache, weakness, numbness, paresthesias, confusion, abnormal gait ED Past Medical Hx - Past Medical History Previous Medical History?: Yes Hx Hypertension: Yes Hx Congestive Heart Failure: Yes Hx Renal Disease: Yes (Tues, Thurs, Sat) Hx Arthritis: Yes Hx Headaches / Migraines: Yes Hx Seizures: Yes Hx Asthma: Yes Additional medical history: Lupus - Surgical History Past Surgical History?: Yes Additional Surgical History: RIGHT ARM graft - Social History Smoking Status: Current Every Day Smoker Substance Use Type: None - Medications Home Medications: Home Medications Medication Instructions Recorded Confirmed Last Taken Type Albuterol Sulfate [Proair 2 puff IH Q4H PRN #1 pump 07/15/18 02/13/19 Unknown Rx Respiclick] Hydroxychloroquine [Plaquenil] 200 mg PO QDAY #30 tablet 07/24/18 02/13/19 Unknown Rx Clonidine HCl [Catapres] 0.3 mg PO TID 08/11/18 02/13/19 Unknown History Labetalol [Labetalol 200mg TAB] 200 mg PO TID 08/11/18 02/13/19 Unknown History Sertraline [Zoloft] 25 mg PO QDAY 08/11/18 02/13/19 Unknown History hydrALAZINE [Apresoline TAB] 100 mg PO TID 08/11/18 02/13/19 Unknown History HYDROcodone/APAP 10-325 [[place] 1 each PO Q4HR PRN #7 tablet 08/14/18 02/13/19 Unknown Rx 10-325 mg TAB] Dicyclomine [Bentyl] 10 mg PO QID PRN #20 capsule 09/10/18 02/13/19 Unknown Rx Ondansetron [Zofran ODT TAB] 4 mg PO Q8HR PRN #20 tab.rapdis 09/10/18 02/13/19 Unknown Rx Methocarbamol [Robaxin-750] 750 mg PO Q6HR PRN #10 tablet 11/12/18 02/13/19 Unknown Rx Metoclopramide HCl [Reglan TAB] 5 mg PO TIDAC PRN #20 tablet 12/15/18 02/13/19 Unknown Rx Phenytoin [Dilantin] 100 mg PO TID #90 capsule.er 01/16/19 02/13/19 Unknown Rx levETIRAcetam [Keppra TAB] 1,000 mg PO BID #60 tablet 01/16/19 02/13/19 Unknown Rx ED Physical Exam - General Limitations: No Limitations General appearance: alert, in no apparent distress - Head Head exam: Present: atraumatic, normocephalic, normal inspection - Eye Eye exam: Present: normal appearance, PERRL - ENT ENT exam: Present: normal exam, normal orophraynx, mucous membranes moist - Neck Neck exam: Present: normal inspection, full ROM. Absent: tenderness, meningismus, lymphadenopathy, thyromegaly - Respiratory Respiratory exam: Present: normal lung sounds bilaterally - Cardiovascular Cardiovascular Exam: Present: regular rate, normal rhythm, normal heart sounds - GI/Abdominal GI/Abdominal exam: Present: soft, normal bowel sounds. Absent: distended, tenderness, guarding, rebound, rigid, organomegaly, mass, bruit, pulsatile mass, hernia - Back Exam Back exam: Present: normal inspection, full ROM. Absent: CVA tenderness (R), CVA tenderness (L) - Neurological Exam Neurological exam: Present: alert, oriented X3, CN II-XII intact - Psychiatric Psychiatric exam: Present: normal mood - Skin Skin exam: Present: warm, intact, normal color ED Course Vital Signs 02/13/19 02/13/19 02/13/19 07:31 10:31 11:56 Temperature 98.1 F Pulse Rate 90 80 122 H Respiratory 18 19 Rate Blood Pressure 196/130 Blood Pressure 189/121 199/123 [Left] O2 Sat by Pulse 100 100 Oximetry YULIYA score - Yuliya Score Age > 65: (0) No Aspirin use within the Past 7 Days: (1) Yes 3 or more CAD Risk Factors: (0) No 2 or more Angina events in past 24 hrs: (0) No Known CAD with more than 50% Stenosis: (0) No Elevated Cardiac Markers: (0) No ST Deviation Greater than 0.5mm: (0) No YULIYA Score: 1 ED Medical Decision Making - Lab Data Result diagrams: 02/13/19 07:37 02/13/19 10:01 - EKG Data -: EKG Interpreted by Wi EKG shows normal: sinus rhythm Rate: normal - EKG Data Interpretation: no acute changes - Radiology Data Radiology results: report reviewed - Medical Decision Making Patient is 28 years old female with history of end-stage renal disease on hemodialysis. Patient also had history of lupus. Patient presented to the ER complaining of left-sided chest pain, sharp in nature and increased with inspiration. Patient supposed to have dialysis today but instead she came to the ER because of chest pain. Patient denied any shortness of breath. Patient found to have a blood pressure of 199/123. Patient denied any fever or chills or cough. Patient's labs reviewed and is unremarkable except for elevated d-dimer and chronic elevation of creatinine and urine. The patient underwent a CTA chest which revealed no pulmonary embolism. Patient received hydralazine and labetalol for hypertension with little improvement. I discussed the patient is Dr. Dixon, she agreed with a CTA and patient to proceed to dialysis after that. I discussed the patient is Dr. Riojas, he agreed to admit the patient to medical service. Critical Care Time: Yes Critical care time in (mins) excluding proc time.: 30 Critical care attestation.: If time is entered above; I have spent that time in minutes in the direct care of this critically ill patient, excluding procedure time. ED Disposition Clinical Impression: Chest pain, ESRD (end stage renal disease) on dialysis, Hypertensive emergency Disposition: OP ADMIT IP TO THIS HOSP Is pt being admited?: Yes Condition: Stable Instructions: Chest Pain (ED), Hypertension (ED) Referrals: ROCIO TOMAS MD [Primary Care Provider] - 3-5 Days
[2019-02-13 11:10] LABS: INR 1.06 (0.87-1.13)
[2019-02-13 11:11] LABS: Partial Thromboplastin Time 29.3 Sec. (24.2-36.6)
[2019-02-13] MEDS ORDERED: BENADRYL ONE (11:43)
[2019-02-13 11:46] LABS: Calcium 8.5 mg/dL (8.4-10.2)
[2019-02-13] MEDS ORDERED: BENADRYL IV ONE (11:53)
[2019-02-13] MEDS ORDERED: NORMODYNE IV ONE ×2 (11:53)
[2019-02-13 12:20] LABS: Chol/HDL Ratio 2.04 %
[2019-02-13] MEDS ORDERED: NACL 0.9% 100 ML IV PRN (12:26)
[2019-02-13] MEDS ORDERED: REGLAN ONE (12:34)
[2019-02-13] MEDS ORDERED: REGLAN IV ONE (12:44)
--- NOTE | 2019-02-13 13:32 | Cat Scan Report ---
PROCEDURE: CT ANGIO CHEST TECHNIQUE: Computerized tomographic angiography of the chest was performed after the IV injection of iodinated nonionic contrast including image processing. The image data was postprocessed using 2-di mensional multiplanar reformatted (MPR) and 3-dimensional (MIP and/or volume rendered) techniques. Au tomated exposure control, adjustment of mA and/or kV according to patient size, or iterative reconstr uction dose optimization techniques were utilized. CT DOSE LENGTH PRODUCT: 281.8 mGycm HISTORY: CHEST PAIN WITH eLEVATED D-DIMER COMPARISONS: None . FINDINGS: Heart and pericardium: Mild cardiomegaly. Thoracic aorta: Normal caliber. Conventional branching pattern of the aortic arch. Pulmonary vasculature: Normal caliber of the main pulmonary artery. No filling defect to suggest pulm onary embolism. Lymph nodes: No enlarged thoracic lymph nodes. Lungs: Mild interlobular septal thickening. No suspicious nodule or mass.. Pleural space: No effusion, thickening, or pneumothorax. Musculoskeletal structures: No suspicious osseous lesions. No acute fracture or dislocation. Soft ti ssues are normal. Upper abdominal structures: No significant abnormality. IMPRESSION: No evidence of pulmonary embolism. Mild cardiomegaly. Mild interlobular septal thickening within the lungs that may represent mild interstitial edema. This document is electronically signed by Zoila Moncada MD., February 13 2019 01:30:31 PM ET
[2019-02-13] MEDS ORDERED: NACL 0.9 (PRIMING MACHINE ONLY DIALYSIS) MC ONE (17:29)
--- NOTE | 2019-02-13 18:55 | Consultation ---
History of Present Illness - Reason for Consult Consult date: 02/13/19 end stage renal disease - History of Present Illness Patient s 28 years old female with ESRD on HD, hypertension and SLE who prsented to the ED with a one day history of chest pain. She denies cough, SOB, fever, chills. She has a hx of SLE but does not follow consistently with rheumatology. Ddimer elevated. Chest CTA obtained and negative for PE. Nephrology consulted for management of ESRD. Past History Past Medical History: other (ESRD, Hypertension, SLE, Seizure disorder, Substance abuse) Past Surgical History: Other (AV access) Social history: no significant social history Family history: no significant family history Medications and Allergies Allergies Allergy/AdvReac Type Severity Reaction Status Date / Time acetaminophen [From Percocet] Allergy Itching Verified 04/21/18 08:28 lisinopril Allergy Swelling Verified 04/21/18 08:28 metoprolol Allergy Unknown Verified 04/21/18 08:28 oxycodone [From Percocet] Allergy Itching Verified 04/21/18 08:28 oxycodone HCl [From Percocet] AdvReac Unknown Verified 04/21/18 08:28 Home Medications Medication Instructions Recorded Confirmed Last Taken Type Albuterol Sulfate [Proair 2 puff IH Q4H PRN #1 pump 07/15/18 02/13/19 Unknown Rx Respiclick] Hydroxychloroquine [Plaquenil] 200 mg PO QDAY #30 tablet 07/24/18 02/13/19 Unknown Rx Clonidine HCl [Catapres] 0.3 mg PO TID 08/11/18 02/13/19 Unknown History Labetalol [Labetalol 200mg TAB] 200 mg PO TID 08/11/18 02/13/19 Unknown History Sertraline [Zoloft] 25 mg PO QDAY 08/11/18 02/13/19 Unknown History hydrALAZINE [Apresoline TAB] 100 mg PO TID 08/11/18 02/13/19 Unknown History HYDROcodone/APAP 10-325 [[place] 1 each PO Q4HR PRN #7 tablet 08/14/18 02/13/19 Unknown Rx 10-325 mg TAB] Dicyclomine [Bentyl] 10 mg PO QID PRN #20 capsule 09/10/18 02/13/19 Unknown Rx Ondansetron [Zofran ODT TAB] 4 mg PO Q8HR PRN #20 tab.rapdis 09/10/18 02/13/19 Unknown Rx Methocarbamol [Robaxin-750] 750 mg PO Q6HR PRN #10 tablet 11/12/18 02/13/19 Unknown Rx Metoclopramide HCl [Reglan TAB] 5 mg PO TIDAC PRN #20 tablet 12/15/18 02/13/19 Unknown Rx Phenytoin [Dilantin] 100 mg PO TID #90 capsule.er 01/16/19 02/13/19 Unknown Rx levETIRAcetam [Keppra TAB] 1,000 mg PO BID #60 tablet 01/16/19 02/13/19 Unknown Rx Active Meds: Active Medications Sodium Chloride (Nacl 0.9%) 100 mls @ 999 mls/hr IV ALYSSA PRN PRN Reason: Hypotension Review of Systems All systems: negative Exam - Vital Signs Vital signs: Vital Signs Pulse Resp BP Pulse Ox 90 18 189/121 100 02/13/19 07:31 02/13/19 07:31 02/13/19 07:31 02/13/19 07:31 - General Appearance General appearance: well-developed, well-nourished EENT: ATNC Respiratory: Clear to Ascultation Heart: regular, S1S2 Gastrointestinal: Present: normal. Absent: tenderness, distended Integumentary: warm and dry Musculoskeletal: Present: other (no edema) Psychiatric: cooperative Results - Lab Results 02/13/19 07:37 02/13/19 10:01 Most recent lab results Calcium 8.5 mg/dL (8.4-10.2) 02/13/19 10:01 Assessment and Plan Impression: * End stage renal disease * Chest pain --CTA chest negative for PE * Accelerated hypertension * SLE * Seizure disorder * Anemia secondary to ESRD * Secondary hyperparathryoidism Plan: * HD today * UF as tolerated * Pain management per primary team * Continue antiHTN medications * Renal diet * Epogen TIW prn
[2019-02-13] MEDS ORDERED: NON-FORMULARY (Albuterol Sulfate [Proair Respiclick] 2 PUFF) IH PRN (21:35)
[2019-02-13] MEDS ORDERED: NON-FORMULARY (Metoclopramide Hcl [Reglan Tab] 5 MG) PO PRN (21:35)
[2019-02-13] MEDS ORDERED: BENTYL PO PRN (21:35)
[2019-02-13] MEDS ORDERED: ZOFRAN ODT PO PRN (21:35)
[2019-02-13] MEDS ORDERED: ROBAXIN PO PRN (21:35)
[2019-02-13] MEDS ORDERED: SODIUM CHLORIDE FLUSH SYRINGE 10 ML IV PRN (21:38)
[2019-02-13] MEDS ORDERED: TYLENOL PO PRN (21:38)
[2019-02-13] MEDS ORDERED: REGLAN PO PRN (22:09)
[2019-02-13] MEDS ORDERED: PROVENTIL IH PRN (22:10)
[2019-02-13] MEDS: PEPCID PO SCH (23:17)
[2019-02-13] MEDS: PLAQUENIL PO SCH (23:18)
[2019-02-13] MEDS: ZOLOFT PO SCH (23:18)
[2019-02-13] MEDS: KEPPRA PO SCH (23:18)
[2019-02-13] MEDS: SODIUM CHLORIDE FLUSH SYRINGE 10 ML IV SCH (23:18)
[2019-02-13] MEDS: NORCO 10/325 PO PRN (23:19)
[2019-02-14] MEDS: MORPHINE IV PRN ×3 (05:09→18:02)
--- NOTE | 2019-02-14 06:44 | History and Physical Report ---
History of Present Illness Date of examination: 02/13/19 Date of admission: 02/13/19 13:58 Chief complaint: Chest pain since AM History of present illness: 28 years old female with history of end-stage renal disease on hemodialysis and lupus presents to the ER complaining of left-sided chest pain, sharp in nature and increased with inspiration. Patient supposed to have dialysis today but instead she came to the ER because of chest pain. Chest pain is 8/110 and sharp in nature.No diaphoresis or SOB.No radiation. Patient found to have a blood pressure of 199/123. Patient denied any fever or chills or cough. Past Medical History Previous Medical History?: Yes Hypertension: Yes Congestive Heart Failure: Yes Renal Disease: Yes (Tues, Th, Sat) Arthritis: Yes Headaches / Migraines: Yes Seizures: Yes Asthma: Yes Additional medical history: Lupus Surgical History Past Surgical History?: Yes Additional Surgical History: RIGHT ARM graft Social History Smoking Status: Current Every Day Smoker Substance Use Type: None Family History Htn Review of Systems ROS: Stated complaint: CP Other details as noted in HPI Comment: All other systems reviewed and negative Constitutional: denies: chills, fever Respiratory: denies: cough, orthopnea, shortness of breath, SOB with exertion, SOB at rest, wheezing Cardiovascular: chest pain Gastrointestinal: denies: abdominal pain, nausea, vomiting, diarrhea, constipation, hematemesis, melena, hematochezia Musculoskeletal: denies: back pain Neurological: denies: headache, weakness, numbness, paresthesias, confusion, abnormal gait 14 point review of systems done--Other briggs negative Past History Past Medical History: other (ESRD, Hypertension, SLE, Seizure disorder, Substance abuse) Past Surgical History: Other (AV access) Social history: no significant social history Family history: no significant family history Medications and Allergies Allergies Allergy/AdvReac Type Severity Reaction Status Date / Time acetaminophen [From Percocet] Allergy Itching Verified 04/21/18 08:28 lisinopril Allergy Swelling Verified 04/21/18 08:28 metoprolol Allergy Unknown Verified 04/21/18 08:28 oxycodone [From Percocet] Allergy Itching Verified 04/21/18 08:28 oxycodone HCl [From Percocet] AdvReac Unknown Verified 04/21/18 08:28 Home Medications Medication Instructions Recorded Confirmed Last Taken Type Albuterol Sulfate [Proair 2 puff IH Q4H PRN #1 pump 07/15/18 02/13/19 Unknown Rx Respiclick] Hydroxychloroquine [Plaquenil] 200 mg PO QDAY #30 tablet 07/24/18 02/13/19 Unknown Rx Clonidine HCl [Catapres] 0.3 mg PO TID 08/11/18 02/13/19 Unknown History Labetalol [Labetalol 200mg TAB] 200 mg PO TID 08/11/18 02/13/19 Unknown History Sertraline [Zoloft] 25 mg PO QDAY 08/11/18 02/13/19 Unknown History hydrALAZINE [Apresoline TAB] 100 mg PO TID 08/11/18 02/13/19 Unknown History HYDROcodone/APAP 10-325 [[place] 1 each PO Q4HR PRN #7 tablet 08/14/18 02/13/19 Unknown Rx 10-325 mg TAB] Dicyclomine [Bentyl] 10 mg PO QID PRN #20 capsule 09/10/18 02/13/19 Unknown Rx Ondansetron [Zofran ODT TAB] 4 mg PO Q8HR PRN #20 tab.rapdis 09/10/18 02/13/19 Unknown Rx Methocarbamol [Robaxin-750] 750 mg PO Q6HR PRN #10 tablet 11/12/18 02/13/19 Unknown Rx Metoclopramide HCl [Reglan TAB] 5 mg PO TIDAC PRN #20 tablet 12/15/18 02/13/19 Unknown Rx Phenytoin [Dilantin] 100 mg PO TID #90 capsule.er 01/16/19 02/13/19 Unknown Rx levETIRAcetam [Keppra TAB] 1,000 mg PO BID #60 tablet 01/16/19 02/13/19 Unknown Rx Active Meds: Active Medications Acetaminophen (Tylenol) 650 mg PO Q4H PRN PRN Reason: Pain MILD(1-3)/Fever >100.5/WOLFF Acetaminophen/Hydrocodone Bitart ([place] 10/325) 1 each PO Q4H PRN PRN Reason: Pain, Moderate (4-6) Last Admin: 02/13/19 23:19 Dose: 1 each Documented by: Albuterol (Proventil) 2.5 mg IH Q4HRT PRN PRN Reason: Shortness Of Breath Clonidine HCl (Catapres) 0.3 mg PO TID [facility] Dicyclomine HCl (Bentyl) 10 mg PO QID PRN PRN Reason: Pain Famotidine (Pepcid) 10 mg PO BID [facility] Last Admin: 02/13/19 23:17 Dose: 10 mg Documented by: Hydralazine HCl (Apresoline) 100 mg PO TID [facility] Hydroxychloroquine Sulfate (Plaquenil) 200 mg PO QDAY [facility] Last Admin: 02/13/19 23:18 Dose: 200 mg Documented by: Sodium Chloride (Nacl 0.9%) 100 mls @ 999 mls/hr IV ALYSSA PRN PRN Reason: Hypotension Labetalol HCl (Normodyne) 200 mg PO TID [facility] Levetiracetam (Keppra) 1,000 mg PO BID [facility] Last Admin: 02/13/19 23:18 Dose: 1,000 mg Documented by: Methocarbamol (Robaxin) 750 mg PO Q6HR PRN PRN Reason: Spasms Metoclopramide HCl (Reglan) 5 mg PO TIDAC PRN PRN Reason: Nausea And Vomiting Morphine Sulfate (Morphine) 2 mg IV Q4H PRN PRN Reason: Pain, Moderate (4-6) Last Admin: 02/14/19 05:09 Dose: 2 mg Documented by: Ondansetron HCl (Zofran Odt) 4 mg PO Q8HR PRN PRN Reason: Nausea Ondansetron HCl (Zofran) 4 mg IV Q8H PRN PRN Reason: Nausea And Vomiting Phenytoin (Dilantin) 100 mg PO TID [facility] Sertraline HCl (Zoloft) 25 mg PO QDAY [facility] Last Admin: 02/13/19 23:18 Dose: 25 mg Documented by: Sodium Chloride (Sodium Chloride Flush Syringe 10 Ml) 10 ml IV BID [facility] Last Admin: 02/13/19 23:18 Dose: 10 ml Documented by: Sodium Chloride (Sodium Chloride Flush Syringe 10 Ml) 10 ml IV PRN PRN PRN Reason: LINE FLUSH Exam - Constitutional Vitals: Temp Pulse Resp BP Pulse Ox 98.5 F 108 H 18 177/116 100 02/14/19 04:31 02/14/19 04:31 02/14/19 05:09 02/14/19 04:31 02/14/19 04:31 General appearance: Present: no acute distress, well-nourished - EENT Eyes: Present: PERRL ENT: hearing intact, clear oral mucosa - Neck Neck: Present: supple, normal ROM - Respiratory Respiratory effort: normal Respiratory: bilateral: CTA - Cardiovascular Heart rate: 89 Rhythm: regular Heart Sounds: Present: S1 & S2. Absent: rub, click - Extremities Extremities: no ischemia, pulses intact, pulses symmetrical, No edema Peripheral Pulses: within normal limits - Abdominal General gastrointestinal: Present: soft, non-tender, non-distended, normal bowel sounds Female genitourinary: Present: normal - Integumentary Integumentary: Present: clear, warm, dry - Musculoskeletal Musculoskeletal: gait normal, strength equal bilaterally - Psychiatric Psychiatric: appropriate mood/affect, intact judgment & insight - Neurologic Neurologic: CNII-XII intact, moves all extremities - Allied Health Allied health notes reviewed: nursing, case management Results - Labs CBC & Chem 7: 02/13/19 07:37 02/13/19 10:01 Labs: Laboratory Last Values WBC 4.5 K/mm3 (4.5-11.0) 02/13/19 07:37 RBC 3.64 M/mm3 (3.65-5.03) L 02/13/19 07:37 Hgb 11.5 gm/dl (10.1-14.3) 02/13/19 07:37 Hct 34.9 % (30.3-42.9) 02/13/19 07:37 MCV 96 fl (79-97) 02/13/19 07:37 MCH 32 pg (28-32) 02/13/19 07:37 MCHC 33 % (30-34) 02/13/19 07:37 RDW 22.2 % (13.2-15.2) H 02/13/19 07:37 Plt Count 108 K/mm3 (140-440) L 02/13/19 07:37 PT 14.5 Sec. (12.2-14.9) 02/13/19 10:44 INR 1.06 (0.87-1.13) 02/13/19 10:44 APTT 29.3 Sec. (24.2-36.6) 02/13/19 10:44 1264.66 ng/mlDDU (0-234) H 02/13/19 10:44 Sodium 137 mmol/L (137-145) 02/13/19 10:01 Potassium 4.8 mmol/L (3.6-5.0) 02/13/19 10:01 Chloride 96.1 mmol/L (98-107) L 02/13/19 10:01 Carbon Dioxide 17 mmol/L (22-30) L 02/13/19 10:01 29 mmol/L 02/13/19 10:01 BUN 40 mg/dL (7-17) H 02/13/19 10:01 9.6 mg/dL (0.7-1.2) H 02/13/19 10:01 Estimated GFR 6 ml/min 02/13/19 10:01 4 % 02/13/19 10:01 Glucose 90 mg/dL (65-100) 02/13/19 10:01 Calcium 8.5 mg/dL (8.4-10.2) 02/13/19 10:01 0.034 ng/mL (0.00-0.029) H 02/13/19 10:01 Triglycerides 62 mg/dL (2-149) 02/13/19 10:01 Cholesterol 137 mg/dL (50-199) 02/13/19 10:01 67 mg/dL (50-130) 02/13/19 10:01 67 mg/dL (40-59) H 02/13/19 10:01 2.04 % 02/13/19 10:01 - Imaging and Cardiology EKG: report reviewed (NSR 89/min) Chest x-ray: report reviewed Imaging and Cardiology: CXR IMPRESSION: Cardiomegaly. Stable scarring in the left lung base. Very mild atelectasis in the right lower lobe... This document is electronically signed by Gray Vicente MD., February 13 2019 07:09:06 AM ET CTA Chestt IMPRESSION: No evidence of pulmonary embolism. Mild cardiomegaly. Mild interlobular septal thickening within the lungs that may represent mild interstitial edema. This document is electronically signed by Zoila Moncada MD., February 13 2019 01:30:31 PM ET Assessment and Plan Advance Directives: Yes (Full code) VTE prophylaxis?: Chemical Plan of care discussed with patient/family: Yes - Patient Problems (1) Hypertensive emergency Current Visit: Yes Status: Acute Plan to address problem: IV Hydralazine given IV Hydralazine prn Adjust BP meds (2) Chest pain Current Visit: Yes Status: Acute Qualifiers: Plan to address problem: Chest pain w/u SerialTroponins Lexiscan in AM/Friday (3) ESRD (end stage renal disease) on dialysis Current Visit: Yes Status: Chronic Plan to address problem: Patient to get HD today (4) Seizure disorder Current Visit: No Status: Chronic Plan to address problem: Cont Keppra (5) Lupus (systemic lupus erythematosus) Current Visit: No Status: Chronic Qualifiers: Systemic lupus erythematosus type: unspecified Plan to address problem: COnt Plaquenil (6) DVT prophylaxis Current Visit: Yes Status: Acute Plan to address problem: On Heparin and GIm prophylaxis
[2019-02-14] MEDS ORDERED: APRESOLINE IV PRN (06:53)
[2019-02-14 07:40] LABS: Calcium 8.7 mg/dL (8.4-10.2)
[2019-02-14] MEDS: CATAPRES PO SCH ×3 (07:49→20:00)
[2019-02-14] MEDS: NORMODYNE PO SCH ×3 (07:50→21:39)
[2019-02-14] MEDS: DILANTIN PO SCH ×3 (07:50→21:39)
[2019-02-14] MEDS: APRESOLINE PO SCH ×2 (07:50→14:09)
[2019-02-14] MEDS: ZOFRAN IV PRN (07:51)
[2019-02-14] MEDS ORDERED: NON-FORMULARY (Clonidine Hcl [Catapres] 0.3 MG) PO SCH (08:00)
[2019-02-14] MEDS: KEPPRA PO SCH ×2 (10:23→21:39)
[2019-02-14] MEDS: PEPCID PO SCH ×2 (10:23→21:39)
[2019-02-14] MEDS: PLAQUENIL PO SCH (10:24)
[2019-02-14] MEDS: SODIUM CHLORIDE FLUSH SYRINGE 10 ML IV SCH (10:24)
[2019-02-14] MEDS: ZOLOFT PO SCH (10:24)
--- NOTE | 2019-02-14 11:21 | Progress Note ---
Assessment and Plan Assessment and plan: Patient is a 28 yo woman with a history of ESRD on HD TTS, SLE, OA, CHF, asthma, hypertension and tobacco dependency who presented to [facility] ED with chest pains, * CTA chest IMPRESSION: No evidence of pulmonary embolism. Mild cardiomegaly. Mild interlobular septal thickening within the lungs that may represent mild interstitial edema (1) Hypertensive emergency Current Visit: Yes Status: Acute Plan to address problem: IV Hydralazine given IV Hydralazine prn Adjust BP meds (2) Chest pain Current Visit: Yes Status: Acute Plan to address problem: Chest pain w/u SerialTroponins Lexiscan in AM/Friday (3) ESRD (end stage renal disease) on dialysis Current Visit: Yes Status: Chronic Plan to address problem: Patient to get HD today (4) Seizure disorder Current Visit: No Status: Chronic Plan to address problem: Cont Keppra (5) Lupus (systemic lupus erythematosus) Current Visit: No Status: Chronic Qualifiers: Systemic lupus erythematosus type: unspecified Plan to address problem: COnt Plaquenil (6) DVT prophylaxis Current Visit: Yes Status: Acute Plan to address problem: On Heparin and GI prophylaxis History Interval history: Patient was seen and examined. Follow-up on current diagnosis chest pains, still off and on. No overnight events reported to me. Patient denies any shortness breath, nausea/vomiting or severe headaches. Imaging, nursing note, chart, labs and old chart reviewed. Discussed with patient. Hospitalist Physical - Physical exam Narrative exam: Gen: WDWN, NAD, Awake, Alert, Orientated HEENT: NCAT, EOMI, PERRL, OP Clear Neck: supple, no adenopathy, no thyromegaly, no JVD CVS/Heart: RRR, normal S1S2, pulses present bilaterally Chest/Lungs: diminished bilateral, Symmetrical chest expansion, good air entry bilaterally, reproducible left side cw tenderness GI/Abdomen: soft, NTND, good bowel sounds, no guarding or rebound /Bladder: no suprapubic tenderness, no CVA or paraspinal tenderness Extermity/Skin: no c/c/e, no obvious rash MSK: FROM x 4 Neuro: CN 2-12 grossly intact, no new focal deficits Psych: calm - Constitutional Vitals: Temp Pulse Resp BP Pulse Ox 98.5 F 108 H 18 177/116 100 02/14/19 04:31 02/14/19 04:31 02/14/19 05:09 02/14/19 04:31 02/14/19 04:31 General appearance: Present: no acute distress, well-nourished Results - Labs CBC & Chem 7: 02/13/19 07:37 02/14/19 06:32 Labs: Laboratory Last Values WBC 4.5 K/mm3 (4.5-11.0) 02/13/19 07:37 RBC 3.64 M/mm3 (3.65-5.03) L 02/13/19 07:37 Hgb 11.5 gm/dl (10.1-14.3) 02/13/19 07:37 Hct 34.9 % (30.3-42.9) 02/13/19 07:37 MCV 96 fl (79-97) 02/13/19 07:37 MCH 32 pg (28-32) 02/13/19 07:37 MCHC 33 % (30-34) 02/13/19 07:37 RDW 22.2 % (13.2-15.2) H 02/13/19 07:37 Plt Count 108 K/mm3 (140-440) L 02/13/19 07:37 PT 14.5 Sec. (12.2-14.9) 02/13/19 10:44 INR 1.06 (0.87-1.13) 02/13/19 10:44 APTT 29.3 Sec. (24.2-36.6) 02/13/19 10:44 1264.66 ng/mlDDU (0-234) H 02/13/19 10:44 Sodium 134 mmol/L (137-145) L 02/14/19 06:32 Potassium 3.9 mmol/L (3.6-5.0) 02/14/19 06:32 Chloride 90.7 mmol/L (98-107) L 02/14/19 06:32 Carbon Dioxide 28 mmol/L (22-30) D 02/14/19 06:32 19 mmol/L 02/14/19 06:32 BUN 16 mg/dL (7-17) 02/14/19 06:32 5.8 mg/dL (0.7-1.2) H 02/14/19 06:32 Estimated GFR 11 ml/min 02/14/19 06:32 3 % 02/14/19 06:32 Glucose 78 mg/dL (65-100) 02/14/19 06:32 Calcium 8.7 mg/dL (8.4-10.2) 02/14/19 06:32 0.034 ng/mL (0.00-0.029) H 02/13/19 10:01 Triglycerides 62 mg/dL (2-149) 02/13/19 10:01 Cholesterol 137 mg/dL (50-199) 02/13/19 10:01 67 mg/dL (50-130) 02/13/19 10:01 67 mg/dL (40-59) H 02/13/19 10:01 2.04 % 02/13/19 10:01 Active Medications - Current Medications Current Medications: Generic Name Dose Route Start Last Admin Trade Name Freq PRN Reason Stop Dose Admin Acetaminophen 650 mg 02/13/19 21:38 Tylenol PO Q4H PRN Pain MILD(1-3)/Fever >100.5/WOLFF Acetaminophen/Hydrocodone Bitart 1 each 02/13/19 21:46 02/13/19 23:19 [place] 10/325 PO 1 each Q4H PRN Administration Pain, Moderate (4-6) Albuterol 2.5 mg 02/13/19 22:10 Proventil IH Q4HRT PRN Shortness Of Breath Clonidine HCl 0.3 mg 02/14/19 08:00 02/14/19 07:49 Catapres PO 0.3 mg TID FERNANDO Administration Dicyclomine HCl 10 mg 02/13/19 21:35 Bentyl PO QID PRN Pain Famotidine 10 mg 02/13/19 22:00 02/14/19 10:23 Pepcid PO 10 mg BID FERNANDO Administration Hydralazine HCl 100 mg 02/14/19 08:00 02/14/19 07:50 Apresoline PO 100 mg TID FERNANDO Administration Hydralazine HCl 10 mg 02/14/19 06:53 Apresoline IV Q3H PRN Blood Pressure Hydroxychloroquine Sulfate 200 mg 02/13/19 22:00 02/14/19 10:24 Plaquenil PO 200 mg QDAY FERNANDO Administration Sodium Chloride 100 mls @ 999 mls/hr 02/13/19 12:26 Nacl 0.9% IV ALYSSA PRN Hypotension Labetalol HCl 200 mg 02/14/19 08:00 02/14/19 07:50 Normodyne PO 200 mg TID FERNANDO Administration Levetiracetam 1,000 mg 02/13/19 22:00 02/14/19 10:23 Keppra PO 1,000 mg BID FERNANDO Administration Methocarbamol 750 mg 02/13/19 21:35 Robaxin PO Q6HR PRN Spasms Metoclopramide HCl 5 mg 02/13/19 22:09 Reglan PO TIDAC PRN Nausea And Vomiting Morphine Sulfate 2 mg 02/13/19 21:38 02/14/19 10:25 Morphine IV 2 mg Q4H PRN Administration Pain, Moderate (4-6) Ondansetron HCl 4 mg 02/13/19 21:35 Zofran Odt PO Q8HR PRN Nausea Ondansetron HCl 4 mg 02/13/19 21:38 02/14/19 07:51 Zofran IV 4 mg Q8H PRN Administration Nausea And Vomiting Phenytoin 100 mg 02/14/19 08:00 02/14/19 07:50 Dilantin PO 100 mg TID FERNANDO Administration Sertraline HCl 25 mg 02/13/19 22:00 02/14/19 10:24 Zoloft PO 25 mg QDAY FERNANDO Administration Sodium Chloride 10 ml 02/13/19 22:00 02/14/19 10:24 Sodium Chloride Flush Syringe 10 Ml IV 10 ml BID FERNANDO Administration Sodium Chloride 10 ml 02/13/19 21:38 Sodium Chloride Flush Syringe 10 Ml IV PRN PRN LINE FLUSH
[2019-02-14] MEDS: BENADRYL PO PRN ×2 (12:23→21:41)
[2019-02-14] MEDS: TESSALON PERLES PO SCH ×3 (12:23→21:39)
[2019-02-14] MEDS: NORCO 10/325 PO PRN (14:08)
--- NOTE | 2019-02-14 14:39 | Progress Note ---
Assessment and Plan Impression: * End stage renal disease * Chest pain --CTA chest negative for PE * Low grade fever * Accelerated hypertension * SLE * Seizure disorder * Anemia secondary to ESRD * Secondary hyperparathryoidism Plan: * Patient is s/p HD yesterday. No acute indication for dialysis today * Hemodialysis TTS * UF as tolerated * Pain management per primary team * Continue antiHTN medications * Renal diet * Epogen TIW prn Subjective Date of service: 02/14/19 Objective - Vital Signs Vital signs: Vital Signs - 12hr 02/14/19 02/14/19 02/14/19 04:31 05:09 11:23 Temperature 98.5 F 99.8 F H Pulse Rate 108 H 102 H Respiratory 22 18 16 Rate Blood Pressure 177/116 102/63 O2 Sat by Pulse 100 100 Oximetry - Lab 02/13/19 07:37 02/14/19 06:32 Most recent lab results Calcium 8.7 mg/dL (8.4-10.2) 02/14/19 06:32 Medications & Allergies - Medications Allergies/Adverse Reactions: Allergies acetaminophen [From Percocet] Allergy (Verified 04/21/18 08:28) Itching lisinopril Allergy (Verified 04/21/18 08:28) Swelling metoprolol Allergy (Verified 04/21/18 08:28) Unknown oxycodone [From Percocet] Allergy (Verified 04/21/18 08:28) Itching oxycodone HCl [From Percocet] Adverse Reaction (Verified 04/21/18 08:28) Unknown Home Medications: Home Medications Medication Instructions Recorded Confirmed Last Taken Type Albuterol Sulfate [Proair 2 puff IH Q4H PRN #1 pump 07/15/18 02/13/19 Unknown Rx Respiclick] Hydroxychloroquine [Plaquenil] 200 mg PO QDAY #30 tablet 07/24/18 02/13/19 Unknown Rx Clonidine HCl [Catapres] 0.3 mg PO TID 08/11/18 02/13/19 Unknown History Labetalol [Labetalol 200mg TAB] 200 mg PO TID 08/11/18 02/13/19 Unknown History Sertraline [Zoloft] 25 mg PO QDAY 08/11/18 02/13/19 Unknown History hydrALAZINE [Apresoline TAB] 100 mg PO TID 08/11/18 02/13/19 Unknown History HYDROcodone/APAP 10-325 [[place] 1 each PO Q4HR PRN #7 tablet 08/14/18 02/13/19 Unknown Rx 10-325 mg TAB] Dicyclomine [Bentyl] 10 mg PO QID PRN #20 capsule 09/10/18 02/13/19 Unknown Rx Ondansetron [Zofran ODT TAB] 4 mg PO Q8HR PRN #20 tab.rapdis 09/10/18 02/13/19 Unknown Rx Methocarbamol [Robaxin-750] 750 mg PO Q6HR PRN #10 tablet 11/12/18 02/13/19 Unknown Rx Metoclopramide HCl [Reglan TAB] 5 mg PO TIDAC PRN #20 tablet 12/15/18 02/13/19 Unknown Rx Phenytoin [Dilantin] 100 mg PO TID #90 capsule.er 01/16/19 02/13/19 Unknown Rx levETIRAcetam [Keppra TAB] 1,000 mg PO BID #60 tablet 01/16/19 02/13/19 Unknown Rx Active Medications: Generic Name Dose Route Start Last Admin Trade Name Freq PRN Reason Stop Dose Admin Acetaminophen 650 mg 02/13/19 21:38 Tylenol PO Q4H PRN Pain MILD(1-3)/Fever >100.5/WOLFF Acetaminophen/Hydrocodone [place] 1 each 02/13/19 21:46 02/14/19 14:08 [place] 10/325 PO 1 each Q4H PRN Administration Pain, Moderate (4-6) Albuterol 2.5 mg 02/13/19 22:10 Proventil IH Q4HRT PRN Shortness Of Breath Benzonatate 100 mg 02/14/19 14:00 02/14/19 12:23 Tessalon Perles PO 100 mg Q8HR FERNANDO Administration Clonidine HCl 0.3 mg 02/14/19 08:00 02/14/19 14:08 Catapres PO 0.3 mg TID FERNANDO Administration Dicyclomine HCl 10 mg 02/13/19 21:35 Bentyl PO QID PRN Pain Diphenhydramine HCl 25 mg 02/14/19 11:41 02/14/19 12:23 Benadryl PO 25 mg Q8H PRN Administration Itching Famotidine 10 mg 02/13/19 22:00 02/14/19 10:23 Pepcid PO 10 mg BID FERNANDO Administration Heparin Sodium (Porcine) 5,000 unit 02/15/19 11:22 Heparin SUB-Q Q12HR FERNANDO Hydralazine HCl 100 mg 02/14/19 08:00 02/14/19 14:09 Apresoline PO 100 mg TID FERNANDO Administration Hydralazine HCl 10 mg 02/14/19 06:53 Apresoline IV Q3H PRN Blood Pressure Hydroxychloroquine Sulfate 200 mg 02/13/19 22:00 02/14/19 10:24 Plaquenil PO 200 mg QDAY FERNANDO Administration Sodium Chloride 100 mls @ 999 mls/hr 02/13/19 12:26 Nacl 0.9% IV ALYSSA PRN Hypotension Labetalol HCl 200 mg 02/14/19 08:00 02/14/19 14:08 Normodyne PO 200 mg TID FERNANDO Administration Levetiracetam 1,000 mg 02/13/19 22:00 02/14/19 10:23 Keppra PO 1,000 mg BID FERNANDO Administration Methocarbamol 750 mg 02/13/19 21:35 Robaxin PO Q6HR PRN Spasms Metoclopramide HCl 5 mg 02/13/19 22:09 Reglan PO TIDAC PRN Nausea And Vomiting Morphine Sulfate 2 mg 02/13/19 21:38 02/14/19 10:25 Morphine IV 2 mg Q4H PRN Administration Pain, Moderate (4-6) Ondansetron HCl 4 mg 02/13/19 21:35 Zofran Odt PO Q8HR PRN Nausea Ondansetron HCl 4 mg 02/13/19 21:38 02/14/19 07:51 Zofran IV 4 mg Q8H PRN Administration Nausea And Vomiting Phenytoin 100 mg 02/14/19 08:00 02/14/19 14:10 Dilantin PO 100 mg TID FERNANDO Administration Sertraline HCl 25 mg 02/13/19 22:00 02/14/19 10:24 Zoloft PO 25 mg QDAY FERNANDO Administration Sodium Chloride 10 ml 02/13/19 22:00 02/14/19 10:24 Sodium Chloride Flush Syringe 10 Ml IV 10 ml BID FERNANDO Administration Sodium Chloride 10 ml 02/13/19 21:38 Sodium Chloride Flush Syringe 10 Ml IV PRN PRN LINE FLUSH
[2019-02-15] MEDS: APRESOLINE PO SCH ×4 (00:03→20:45)
[2019-02-15] MEDS: MORPHINE IV PRN ×7 (00:12→22:55)
[2019-02-15] MEDS: ZOFRAN IV PRN (00:13)
[2019-02-15] MEDS: SODIUM CHLORIDE FLUSH SYRINGE 10 ML IV SCH ×3 (00:14→14:30)
[2019-02-15] MEDS: TESSALON PERLES PO SCH ×3 (05:03→21:13)
[2019-02-15] MEDS: CATAPRES PO SCH ×3 (08:57→21:35)
[2019-02-15] MEDS: NORMODYNE PO SCH ×2 (08:58→18:21)
[2019-02-15] MEDS: DILANTIN PO SCH ×3 (09:00→21:13)
[2019-02-15] MEDS: KEPPRA PO SCH ×2 (09:00→21:13)
[2019-02-15] MEDS: PEPCID PO SCH ×2 (09:00→21:13)
--- NOTE | 2019-02-15 09:41 | Progress Note ---
Subjective Interval history: Patient was seen today for follow-up on multiple renal related issues Events of this hospitalization noted Patient denies having any chest pain pressure or shortness of breath Vitals labs intake output medications were reviewed Social history: Reviewed Allergies: Reviewed Family history: Reviewed Physical examination HEENT: Oral mucosa moist no pallor or icterus Neck: Supple no JVD Chest: Clear to auscultation anteriorly CVS: Regular rate and rhythm S1 and S2 heard Abdomen: Soft nontender no suprapubic masses no organomegaly appreciable Extremity: Dry skin less than 1+ peripheral edema Musculoskeletal: No joint effusion noted in knees and ankle Neurological: Alert awake Dermatology: No petechial rashes Psychiatry: No evidence of any agitation and aggression noted Assessment and plan; End-stage renal disease: Patient will continue with hemodialysis 3 times a week, she is very poorly compliant which makes her prognosis very guarded to poor Art[place] she's on hemodialysis Friday and Friday Admitted with fever which could be multifactorial patient does have history of systemic lupus she was advised to make a follow-up appointment with rheumatology, blood cultures currently pending patient is currently afebrile blood pressure has been stable CT scan negative for pulmonary embolism, Anemia in end-stage renal disease: Monitor hemoglobin and hematocrit, erythropoietin as needed Secondary hyperparathyroidism periodically check phosphorus and PTH level, goal phosphorus less than 5.5 PTH less than 600, educated about renal osteodystrophy Hypertension and volume: , Adjust medications as needed, ultrafiltration as tolerated keep systolic blood pressure above 100 Malnutrition risk: High please consider high protein diet as well as nutrition follow-up, patient needs at least 1.5 g protein per KG body weight Dialysis access: Currently working well, discussed about monitoring Dietary counseling and education: Done at length to improve outcome with end- stage renal disease Patient was also educated about the hospital related comorbidities Overall prognosis appears to be guarded due to end-stage renal disease, dialysis status and other comorbidities Patient was adequately counseled and educated regarding multiple renal related issues Pertinent lab findings were discussed with patient and patient does exhibit good understanding of renal issues. We'll continue to follow and make recommendation from renal standpoint Objective - Vital Signs Vital signs: Vital Signs - 12hr 02/14/19 02/15/19 02/15/19 22:00 00:11 00:12 Temperature Pulse Rate 101 H Respiratory 18 18 18 Rate Blood Pressure 106/69 O2 Sat by Pulse 98 Oximetry 02/15/19 02/15/19 02/15/19 00:42 04:20 04:51 Temperature 98.5 F Pulse Rate 96 H Respiratory 18 18 24 Rate Blood Pressure 109/74 O2 Sat by Pulse 100 Oximetry 02/15/19 08:57 Temperature Pulse Rate 96 H Respiratory Rate Blood Pressure 118/80 O2 Sat by Pulse Oximetry - Lab 02/13/19 07:37 02/14/19 06:32 Most recent lab results Calcium 8.7 mg/dL (8.4-10.2) 02/14/19 06:32 Medications & Allergies - Medications Allergies/Adverse Reactions: Allergies acetaminophen [From Percocet] Allergy (Verified 04/21/18 08:28) Itching lisinopril Allergy (Verified 04/21/18 08:28) Swelling metoprolol Allergy (Verified 04/21/18 08:28) Unknown oxycodone [From Percocet] Allergy (Verified 04/21/18 08:28) Itching oxycodone HCl [From Percocet] Adverse Reaction (Verified 04/21/18 08:28) Unknown Home Medications: Home Medications Medication Instructions Recorded Confirmed Last Taken Type Albuterol Sulfate [Proair 2 puff IH Q4H PRN #1 pump 07/15/18 02/13/19 Unknown Rx Respiclick] Hydroxychloroquine [Plaquenil] 200 mg PO QDAY #30 tablet 07/24/18 02/13/19 Unknown Rx Clonidine HCl [Catapres] 0.3 mg PO TID 08/11/18 02/13/19 Unknown History Labetalol [Labetalol 200mg TAB] 200 mg PO TID 08/11/18 02/13/19 Unknown History Sertraline [Zoloft] 25 mg PO QDAY 08/11/18 02/13/19 Unknown History hydrALAZINE [Apresoline TAB] 100 mg PO TID 08/11/18 02/13/19 Unknown History HYDROcodone/APAP 10-325 [[place] 1 each PO Q4HR PRN #7 tablet 08/14/18 02/13/19 Unknown Rx 10-325 mg TAB] Dicyclomine [Bentyl] 10 mg PO QID PRN #20 capsule 09/10/18 02/13/19 Unknown Rx Ondansetron [Zofran ODT TAB] 4 mg PO Q8HR PRN #20 tab.rapdis 09/10/18 02/13/19 Unknown Rx Methocarbamol [Robaxin-750] 750 mg PO Q6HR PRN #10 tablet 11/12/18 02/13/19 Unknown Rx Metoclopramide HCl [Reglan TAB] 5 mg PO TIDAC PRN #20 tablet 12/15/18 02/13/19 Unknown Rx Phenytoin [Dilantin] 100 mg PO TID #90 capsule.er 01/16/19 02/13/19 Unknown Rx levETIRAcetam [Keppra TAB] 1,000 mg PO BID #60 tablet 01/16/19 02/13/19 Unknown Rx Active Medications: Generic Name Dose Route Start Last Admin Trade Name Freq PRN Reason Stop Dose Admin Acetaminophen 650 mg 02/13/19 21:38 Tylenol PO Q4H PRN Pain MILD(1-3)/Fever >100.5/WOLFF Acetaminophen/Hydrocodone Bitart 1 each 02/13/19 21:46 02/14/19 14:08 [place] 10/325 PO 1 each Q4H PRN Administration Pain, Moderate (4-6) Albuterol 2.5 mg 02/13/19 22:10 Proventil IH Q4HRT PRN Shortness Of Breath Benzonatate 100 mg 02/14/19 14:00 02/15/19 05:03 Tessalon Perles PO 100 mg Q8HR FERNANDO Administration Clonidine HCl 0.3 mg 02/14/19 08:00 02/15/19 08:57 Catapres PO Not Given TID FERNANDO Dicyclomine HCl 10 mg 02/13/19 21:35 Bentyl PO QID PRN Pain Diphenhydramine HCl 25 mg 02/14/19 11:41 02/14/19 21:41 Benadryl PO 25 mg Q8H PRN Administration Itching Famotidine 10 mg 02/13/19 22:00 02/15/19 09:00 Pepcid PO 10 mg BID FERNANDO Administration Heparin Sodium (Porcine) 5,000 unit 02/15/19 11:22 Heparin SUB-Q Q12HR FERNANDO Hydralazine HCl 100 mg 02/14/19 08:00 02/15/19 08:57 Apresoline PO Not Given TID FERNANDO Hydralazine HCl 10 mg 02/14/19 06:53 Apresoline IV Q3H PRN Blood Pressure Hydroxychloroquine Sulfate 200 mg 02/13/19 22:00 02/14/19 10:24 Plaquenil PO 200 mg QDAY FERNANDO Administration Sodium Chloride 100 mls @ 999 mls/hr 02/13/19 12:26 Nacl 0.9% IV ALYSSA PRN Hypotension Labetalol HCl 200 mg 02/14/19 08:00 02/15/19 08:58 Normodyne PO Not Given TID FERNANDO Levetiracetam 1,000 mg 02/13/19 22:00 02/15/19 09:00 Keppra PO 1,000 mg BID FERNANDO Administration Methocarbamol 750 mg 02/13/19 21:35 Robaxin PO Q6HR PRN Spasms Metoclopramide HCl 5 mg 02/13/19 22:09 Reglan PO TIDAC PRN Nausea And Vomiting Morphine Sulfate 2 mg 02/13/19 21:38 02/15/19 09:00 Morphine IV 2 mg Q4H PRN Administration Pain, Moderate (4-6) Ondansetron HCl 4 mg 02/13/19 21:35 Zofran Odt PO Q8HR PRN Nausea Ondansetron HCl 4 mg 02/13/19 21:38 02/15/19 00:13 Zofran IV 4 mg Q8H PRN Administration Nausea And Vomiting Phenytoin 100 mg 02/14/19 08:00 02/15/19 09:00 Dilantin PO 100 mg TID FERNANDO Administration Sertraline HCl 25 mg 02/13/19 22:00 02/14/19 10:24 Zoloft PO 25 mg QDAY FERNANDO Administration Sodium Chloride 10 ml 02/13/19 22:00 02/15/19 04:22 Sodium Chloride Flush Syringe 10 Ml IV 10 ml BID FERNANDO Administration Sodium Chloride 10 ml 02/13/19 21:38 Sodium Chloride Flush Syringe 10 Ml IV PRN PRN LINE FLUSH
[2019-02-15] MEDS ORDERED: HEPARIN SUB-Q SCH (11:22)
--- NOTE | 2019-02-15 13:40 | Progress Note ---
Assessment and Plan Assessment and plan: Patient is a 28 yo woman with a history of ESRD on HD TTS, SLE, OA, CHF, asthma, hypertension and tobacco dependency who presented to [facility] ED with chest pains, * CTA chest IMPRESSION: No evidence of pulmonary embolism. Mild cardiomegaly. Mild interlobular septal thickening within the lungs that may represent mild interstitial edema (1) Hypertensive emergency Current Visit: Yes Status: Acute Plan to address problem: IV Hydralazine given IV Hydralazine prn Adjust BP meds (2) Chest pain Current Visit: Yes Status: Acute Plan to address problem: Chest pain w/u SerialTroponins Lexiscan in AM friday because only one set of Troponin ordered on admission, review old records show normal [facility] 02/2018 so I will consult Cardiology (3) ESRD (end stage renal disease) on dialysis Current Visit: Yes Status: Chronic Plan to address problem: Patient to get HD today (4) Seizure disorder Current Visit: No Status: Chronic Plan to address problem: Cont Keppra (5) Lupus (systemic lupus erythematosus) Current Visit: No Status: Chronic Qualifiers: Systemic lupus erythematosus type: unspecified Plan to address problem: COnt Plaquenil (6) DVT prophylaxis Current Visit: Yes Status: Acute Plan to address problem: On Heparin and GI prophylaxis Disposition: continue inpatient, if stress test negative or cleared by Cardiology will discharge tomorrow. History Interval history: Patient was seen and examined. Follow-up on current diagnosis chest pains, still off and on, asking for more pain medications. No overnight events reported to me. Patient denies any shortness breath, nausea/vomiting or severe headaches. Imaging, nursing note, chart, labs and old chart reviewed. Discussed with patient. Hospitalist Physical - Physical exam Narrative exam: Gen: WDWN, NAD, Awake, Alert, Orientated x3 HEENT: NCAT, EOMI, PERRL, OP Clear Neck: supple, no adenopathy, no thyromegaly, no JVD CVS/Heart: RRR, normal S1S2, pulses present bilaterally Chest/Lungs: diminished bilateral, Symmetrical chest expansion, good air entry bilaterally, reproducible left side cw tenderness GI/Abdomen: soft, NTND, good bowel sounds, no guarding or rebound /Bladder: no suprapubic tenderness, no CVA or paraspinal tenderness Extermity/Skin: no c/c/e, no obvious rash MSK: FROM x 4 Neuro: CN 2-12 grossly intact, no new focal deficits Psych: calm - Constitutional Vitals: Temp Pulse Resp BP Pulse Ox 99.5 F 90 16 124/87 100 02/15/19 11:36 02/15/19 11:36 02/15/19 11:36 02/15/19 11:36 02/15/19 11:36 General appearance: Present: no acute distress, well-nourished Results - Labs CBC & Chem 7: 02/13/19 07:37 02/14/19 06:32 Labs: Laboratory Last Values WBC 4.5 K/mm3 (4.5-11.0) 02/13/19 07:37 RBC 3.64 M/mm3 (3.65-5.03) L 02/13/19 07:37 Hgb 11.5 gm/dl (10.1-14.3) 02/13/19 07:37 Hct 34.9 % (30.3-42.9) 02/13/19 07:37 MCV 96 fl (79-97) 02/13/19 07:37 MCH 32 pg (28-32) 02/13/19 07:37 MCHC 33 % (30-34) 02/13/19 07:37 RDW 22.2 % (13.2-15.2) H 02/13/19 07:37 Plt Count 108 K/mm3 (140-440) L 02/13/19 07:37 PT 14.5 Sec. (12.2-14.9) 02/13/19 10:44 INR 1.06 (0.87-1.13) 02/13/19 10:44 APTT 29.3 Sec. (24.2-36.6) 02/13/19 10:44 1264.66 ng/mlDDU (0-234) H 02/13/19 10:44 Sodium 134 mmol/L (137-145) L 02/14/19 06:32 Potassium 3.9 mmol/L (3.6-5.0) 02/14/19 06:32 Chloride 90.7 mmol/L (98-107) L 02/14/19 06:32 Carbon Dioxide 28 mmol/L (22-30) D 02/14/19 06:32 19 mmol/L 02/14/19 06:32 BUN 16 mg/dL (7-17) 02/14/19 06:32 5.8 mg/dL (0.7-1.2) H 02/14/19 06:32 Estimated GFR 11 ml/min 02/14/19 06:32 3 % 02/14/19 06:32 Glucose 78 mg/dL (65-100) 02/14/19 06:32 Calcium 8.7 mg/dL (8.4-10.2) 02/14/19 06:32 0.044 ng/mL (0.00-0.029) H D 02/15/19 11:30 Triglycerides 62 mg/dL (2-149) 02/13/19 10:01 Cholesterol 137 mg/dL (50-199) 02/13/19 10:01 67 mg/dL (50-130) 02/13/19 10:01 67 mg/dL (40-59) H 02/13/19 10:01 2.04 % 02/13/19 10:01 Active Medications - Current Medications Current Medications: Generic Name Dose Route Start Last Admin Trade Name Freq PRN Reason Stop Dose Admin Acetaminophen 650 mg 02/13/19 21:38 Tylenol PO Q4H PRN Pain MILD(1-3)/Fever >100.5/WOLFF Acetaminophen/Hydrocodone Bitart 1 each 02/13/19 21:46 02/14/19 14:08 [place] 10/325 PO 1 each Q4H PRN Administration Pain, Moderate (4-6) Albuterol 2.5 mg 02/13/19 22:10 Proventil IH Q4HRT PRN Shortness Of Breath Benzonatate 100 mg 02/14/19 14:00 02/15/19 05:03 Tessalon Perles PO 100 mg Q8HR FERNANDO Administration Clonidine HCl 0.3 mg 02/14/19 08:00 02/15/19 08:57 Catapres PO Not Given TID FENRANDO Dicyclomine HCl 10 mg 02/13/19 21:35 Bentyl PO QID PRN Pain Diphenhydramine HCl 25 mg 02/14/19 11:41 02/14/19 21:41 Benadryl PO 25 mg Q8H PRN Administration Itching Famotidine 10 mg 02/13/19 22:00 02/15/19 09:00 Pepcid PO 10 mg BID FERNANDO Administration Heparin Sodium (Porcine) 5,000 unit 02/15/19 11:22 Heparin SUB-Q Q12HR [facility] Hydralazine HCl 100 mg 02/14/19 08:00 02/15/19 08:57 Apresoline PO Not Given TID FERNANDO Hydralazine HCl 10 mg 02/14/19 06:53 Apresoline IV Q3H PRN Blood Pressure Hydroxychloroquine Sulfate 200 mg 02/13/19 22:00 02/14/19 10:24 Plaquenil PO 200 mg QDAY FERNANDO Administration Sodium Chloride 100 mls @ 999 mls/hr 02/13/19 12:26 Nacl 0.9% IV ALYSSA PRN Hypotension Labetalol HCl 200 mg 02/14/19 08:00 02/15/19 08:58 Normodyne PO Not Given TID FERNANDO Levetiracetam 1,000 mg 02/13/19 22:00 02/15/19 09:00 Keppra PO 1,000 mg BID FERNANDO Administration Methocarbamol 750 mg 02/13/19 21:35 Robaxin PO Q6HR PRN Spasms Metoclopramide HCl 5 mg 02/13/19 22:09 Reglan PO TIDAC PRN Nausea And Vomiting Morphine Sulfate 2 mg 02/13/19 21:38 02/15/19 09:00 Morphine IV 2 mg Q4H PRN Administration Pain, Moderate (4-6) Ondansetron HCl 4 mg 02/13/19 21:35 Zofran Odt PO Q8HR PRN Nausea Ondansetron HCl 4 mg 02/13/19 21:38 02/15/19 00:13 Zofran IV 4 mg Q8H PRN Administration Nausea And Vomiting Phenytoin 100 mg 02/14/19 08:00 02/15/19 09:00 Dilantin PO 100 mg TID FERNANDO Administration Sertraline HCl 25 mg 02/13/19 22:00 02/14/19 10:24 Zoloft PO 25 mg QDAY FERNANDO Administration Sodium Chloride 10 ml 02/13/19 22:00 02/15/19 04:22 Sodium Chloride Flush Syringe 10 Ml IV 10 ml BID FERNANDO Administration Sodium Chloride 10 ml 02/13/19 21:38 Sodium Chloride Flush Syringe 10 Ml IV PRN PRN LINE FLUSH
[2019-02-15] MEDS: PLAQUENIL PO SCH (14:29)
[2019-02-15] MEDS: ZOLOFT PO SCH (14:30)
--- NOTE | 2019-02-15 23:23 | Event Note ---
Date: 02/15/19 Notified by Nursing staff about blood cluture result as called by Micro, Gram postive cocci 1 of 2 bottles. Patient remains afebrile, no Wbc, No marker of sepsis at this time. Considering this will continue to monitor. No indication for abx at this time.
[2019-02-16] MEDS: NORMODYNE PO SCH ×3 (01:18→18:22)
[2019-02-16] MEDS: SODIUM CHLORIDE FLUSH SYRINGE 10 ML IV SCH ×2 (01:20→16:41)
[2019-02-16] MEDS: MORPHINE IV PRN ×2 (04:21→16:56)
[2019-02-16] MEDS: TESSALON PERLES PO SCH ×2 (06:39→18:25)
[2019-02-16] MEDS ORDERED: LEXISCAN IV ONE ×2 (08:09→09:09)
[2019-02-16] MEDS ORDERED: ZOFRAN ONE (09:09)
[2019-02-16] MEDS: ZOFRAN IV PRN ×2 (09:11→16:37)
[2019-02-16] MEDS: KEPPRA PO SCH (09:12)
[2019-02-16] MEDS: DILANTIN PO SCH ×2 (09:12→18:26)
--- NOTE | 2019-02-16 09:25 | Progress Note ---
Subjective Interval history: Patient was seen today for follow-up on multiple renal related issues Events of this hospitalization noted Patient is due for dialysis today 1 out of 2 cultures positive for gram-positive cocci Patient denies having any chest pain pressure or shortness of breath Vitals labs intake output medications were reviewed Social history: Reviewed Allergies: Reviewed Family history: Reviewed Physical examination HEENT: Oral mucosa moist no pallor or icterus Neck: Supple no JVD Chest: Clear to auscultation anteriorly CVS: Regular rate and rhythm S1 and S2 heard Abdomen: Soft nontender no suprapubic masses no organomegaly appreciable Extremity: Dry skin less than 1+ peripheral edema Fistula: 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 Musculoskeletal: No joint effusion noted in knees and ankle Neurological: Alert awake Dermatology: No petechial rashes Psychiatry: No evidence of any agitation and aggression noted Assessment and plan; Patient has not following up with rheumatology like advised she claims to be taking her prednisone, I'm concerned how she getting this prescription if she is not following up with rheumatology Patient also does need a psych evaluation and follow-up due to prior history of depression and several hospitalization, issues with noncompliance I believe her dose of Zoloft should be increased to 50 mg daily One out of 2 blood culture positive for gram-positive cocci, it could be contamination repeat culture needs to be obtained Her fistula needs to be evaluated by vascular surgery which appears to be somewhat tense and may have proximal stenosis patient has been told in the outpatient setting that she does need fistulogram, Admitted with fever which could be multifactorial patient does have history of systemic lupus she was advised to make a follow-up appointment with rheumatology, blood cultures currently pending patient is currently afebrile blood pressure has been stable CT scan negative for pulmonary embolism, Anemia in end-stage renal disease: Monitor hemoglobin and hematocrit, erythropoietin as needed Secondary hyperparathyroidism periodically check phosphorus and PTH level, goal phosphorus less than 5.5 PTH less than 600, educated about renal osteodystrophy Hypertension and volume: , Adjust medications as needed, ultrafiltration as tolerated keep systolic blood pressure above 100 Malnutrition risk: High please consider high protein diet as well as nutrition follow-up, patient needs at least 1.5 g protein per KG body weight Will consider vascular surgery evaluation Pertinent lab findings were discussed with patient and patient does exhibit good understanding of renal issues. We'll continue to follow and make recommendation from renal standpoint Objective - Vital Signs Vital signs: Vital Signs - 12hr 02/15/19 02/16/19 02/16/19 22:55 00:22 04:21 Temperature 98.6 F Pulse Rate 88 Respiratory 17 18 17 Rate Blood Pressure 139/86 O2 Sat by Pulse 97 Oximetry 02/16/19 02/16/19 02/16/19 04:51 06:24 07:43 Temperature 98.5 F Pulse Rate 78 Respiratory 17 18 Rate Blood Pressure 134/85 O2 Sat by Pulse 100 96 Oximetry - Lab 02/13/19 07:37 02/14/19 06:32 Most recent lab results Calcium 8.7 mg/dL (8.4-10.2) 02/14/19 06:32 Medications & Allergies - Medications Allergies/Adverse Reactions: Allergies acetaminophen [From Percocet] Allergy (Verified 04/21/18 08:28) Itching lisinopril Allergy (Verified 04/21/18 08:28) Swelling metoprolol Allergy (Verified 04/21/18 08:28) Unknown oxycodone [From Percocet] Allergy (Verified 04/21/18 08:28) Itching oxycodone HCl [From Percocet] Adverse Reaction (Verified 04/21/18 08:28) Unknown Home Medications: Home Medications Medication Instructions Recorded Confirmed Last Taken Type Albuterol Sulfate [Proair 2 puff IH Q4H PRN #1 pump 07/15/18 02/13/19 Unknown Rx Respiclick] Hydroxychloroquine [Plaquenil] 200 mg PO QDAY #30 tablet 07/24/18 02/13/19 Unknown Rx Clonidine HCl [Catapres] 0.3 mg PO TID 08/11/18 02/13/19 Unknown History Labetalol [Labetalol 200mg TAB] 200 mg PO TID 08/11/18 02/13/19 Unknown History Sertraline [Zoloft] 25 mg PO QDAY 08/11/18 02/13/19 Unknown History hydrALAZINE [Apresoline TAB] 100 mg PO TID 08/11/18 02/13/19 Unknown History HYDROcodone/APAP 10-325 [[place] 1 each PO Q4HR PRN #7 tablet 08/14/18 02/13/19 Unknown Rx 10-325 mg TAB] Dicyclomine [Bentyl] 10 mg PO QID PRN #20 capsule 09/10/18 02/13/19 Unknown Rx Ondansetron [Zofran ODT TAB] 4 mg PO Q8HR PRN #20 tab.rapdis 09/10/18 02/13/19 Unknown Rx Methocarbamol [Robaxin-750] 750 mg PO Q6HR PRN #10 tablet 11/12/18 02/13/19 Unknown Rx Metoclopramide HCl [Reglan TAB] 5 mg PO TIDAC PRN #20 tablet 12/15/18 02/13/19 Unknown Rx Phenytoin [Dilantin] 100 mg PO TID #90 capsule.er 01/16/19 02/13/19 Unknown Rx levETIRAcetam [Keppra TAB] 1,000 mg PO BID #60 tablet 01/16/19 02/13/19 Unknown Rx Active Medications: Generic Name Dose Route Start Last Admin Trade Name Freq PRN Reason Stop Dose Admin Acetaminophen 650 mg 02/13/19 21:38 Tylenol PO Q4H PRN Pain MILD(1-3)/Fever >100.5/WOLFF Acetaminophen/Hydrocodone Bitart 1 each 02/13/19 21:46 02/14/19 14:08 [place] 10/325 PO 1 each Q4H PRN Administration Pain, Moderate (4-6) Albuterol 2.5 mg 02/13/19 22:10 Proventil IH Q4HRT PRN Shortness Of Breath Benzonatate 100 mg 02/14/19 14:00 02/16/19 06:39 Tessalon Perles PO Not Given Q8HR FERNANDO Clonidine HCl 0.3 mg 02/14/19 08:00 02/15/19 21:35 Catapres PO Not Given TID FERNANDO Dicyclomine HCl 10 mg 02/13/19 21:35 Bentyl PO QID PRN Pain Diphenhydramine HCl 25 mg 02/14/19 11:41 02/14/19 21:41 Benadryl PO 25 mg Q8H PRN Administration Itching Famotidine 10 mg 02/13/19 22:00 02/15/19 21:13 Pepcid PO 10 mg BID FERNANDO Administration Hydralazine HCl 100 mg 02/14/19 08:00 02/15/19 20:45 Apresoline PO Not Given TID FERNANDO Hydralazine HCl 10 mg 02/14/19 06:53 Apresoline IV Q3H PRN Blood Pressure Hydroxychloroquine Sulfate 200 mg 02/13/19 22:00 02/15/19 14:29 Plaquenil PO 200 mg QDAY FERNANDO Administration Sodium Chloride 100 mls @ 999 mls/hr 02/13/19 12:26 Nacl 0.9% IV ALYSSA PRN Hypotension Labetalol HCl 200 mg 02/14/19 08:00 02/16/19 01:18 Normodyne PO Not Given TID FERNANDO Levetiracetam 1,000 mg 02/13/19 22:00 02/16/19 09:12 Keppra PO 1,000 mg BID FRENANDO Administration Methocarbamol 750 mg 02/13/19 21:35 Robaxin PO Q6HR PRN Spasms Metoclopramide HCl 5 mg 02/13/19 22:09 Reglan PO TIDAC PRN Nausea And Vomiting Morphine Sulfate 2 mg 02/13/19 21:38 02/16/19 04:21 Morphine IV 2 mg Q4H PRN Administration Pain, Moderate (4-6) Ondansetron HCl 4 mg 02/13/19 21:35 Zofran Odt PO Q8HR PRN Nausea Ondansetron HCl 4 mg 02/13/19 21:38 02/16/19 09:11 Zofran IV 4 mg Q8H PRN Administration Nausea And Vomiting Phenytoin 100 mg 02/14/19 08:00 02/16/19 09:12 Dilantin PO 100 mg TID FERNANDO Administration Regadenoson 0.4 mg 02/16/19 09:09 Lexiscan IV 02/16/19 09:10 ONCE ONE Sertraline HCl 25 mg 02/13/19 22:00 02/15/19 14:30 Zoloft PO 25 mg QDAY FERNANDO Administration Sodium Chloride 10 ml 02/13/19 22:00 02/16/19 01:20 Sodium Chloride Flush Syringe 10 Ml IV Not Given BID FERNANDO Sodium Chloride 10 ml 02/13/19 21:38 Sodium Chloride Flush Syringe 10 Ml IV PRN PRN LINE FLUSH
--- NOTE | 2019-02-16 12:32 | Event Note ---
Date: 02/16/19 Detailed cardiology consultation dictated. Pt underwent lexiscan MPI stress test this morning which was negative. Will f/u echo to r/o lupus pericarditis. Gisell CASON NP / DR. JAY
--- NOTE | 2019-02-16 12:54 | Progress Note ---
Assessment and Plan Assessment and plan: Patient is a 28 yo woman with a history of ESRD on HD TTS, SLE, OA, CHF, asthma, hypertension and tobacco dependency who presented to [facility] ED with chest pains, * CTA chest IMPRESSION: No evidence of pulmonary embolism. Mild cardiomegaly. Mild interlobular septal thickening within the lungs that may represent mild interstitial edema (1) Hypertensive emergency Current Visit: Yes Status: Acute Plan to address problem: IV Hydralazine given IV Hydralazine prn Adjust BP meds (2) Chest pain, atypical, costochrondritis most likely Current Visit: Yes Status: Acute Plan to address problem: Chest pain w/u SerialTroponins Lexiscan in AM friday because only one set of Troponin ordered on admission, review old records show normal [facility] 02/2018 so I will consult Cardiology (3) ESRD (end stage renal disease) on dialysis Current Visit: Yes Status: Chronic Plan to address problem: Patient to get HD today (4) Seizure disorder Current Visit: No Status: Chronic Plan to address problem: Cont Keppra (5) Lupus (systemic lupus erythematosus) Current Visit: No Status: Chronic Qualifiers: Systemic lupus erythematosus type: unspecified Plan to address problem: COnt Plaquenil (6) DVT prophylaxis Current Visit: Yes Status: Acute Plan to address problem: On Heparin and GI prophylaxis Disposition: continue inpatient, although stress test negative, 1/2 set of blood cultures growing GPC, await until finalization before discharge History Interval history: Patient was seen and examined. Follow-up on current diagnosis chest pains, still off and on, asking for more pain medications. No overnight events reported to me. Patient denies any shortness breath, nausea/vomiting or severe headaches. Imaging, nursing note, chart, labs and old chart reviewed. Discussed with patient. Hospitalist Physical - Physical exam Narrative exam: Gen: WDWN, NAD, Awake, Alert, Orientated x3 HEENT: NCAT, EOMI, PERRL, OP Clear Neck: supple, no adenopathy, no thyromegaly, no JVD CVS/Heart: RRR, normal S1S2, pulses present bilaterally Chest/Lungs: diminished bilateral, Symmetrical chest expansion, good air entry bilaterally, reproducible left side cw tenderness GI/Abdomen: soft, NTND, good bowel sounds, no guarding or rebound /Bladder: no suprapubic tenderness, no CVA or paraspinal tenderness Extermity/Skin: no c/c/e, no obvious rash MSK: FROM x 4 Neuro: CN 2-12 grossly intact, no new focal deficits Psych: calm - Constitutional Vitals: Temp Pulse Resp BP Pulse Ox 98.2 F 96 H 18 111/84 98 02/16/19 10:00 02/16/19 11:45 02/16/19 10:00 02/16/19 11:45 02/16/19 09:05 General appearance: Present: no acute distress, well-nourished Results - Labs CBC & Chem 7: 02/13/19 07:37 02/14/19 06:32 Labs: Laboratory Last Values WBC 4.5 K/mm3 (4.5-11.0) 02/13/19 07:37 RBC 3.64 M/mm3 (3.65-5.03) L 02/13/19 07:37 Hgb 11.5 gm/dl (10.1-14.3) 02/13/19 07:37 Hct 34.9 % (30.3-42.9) 02/13/19 07:37 MCV 96 fl (79-97) 02/13/19 07:37 MCH 32 pg (28-32) 02/13/19 07:37 MCHC 33 % (30-34) 02/13/19 07:37 RDW 22.2 % (13.2-15.2) H 02/13/19 07:37 Plt Count 108 K/mm3 (140-440) L 02/13/19 07:37 PT 14.5 Sec. (12.2-14.9) 02/13/19 10:44 INR 1.06 (0.87-1.13) 02/13/19 10:44 APTT 29.3 Sec. (24.2-36.6) 02/13/19 10:44 1264.66 ng/mlDDU (0-234) H 02/13/19 10:44 Sodium 134 mmol/L (137-145) L 02/14/19 06:32 Potassium 3.9 mmol/L (3.6-5.0) 02/14/19 06:32 Chloride 90.7 mmol/L (98-107) L 02/14/19 06:32 Carbon Dioxide 28 mmol/L (22-30) D 02/14/19 06:32 19 mmol/L 02/14/19 06:32 BUN 16 mg/dL (7-17) 02/14/19 06:32 5.8 mg/dL (0.7-1.2) H 02/14/19 06:32 Estimated GFR 11 ml/min 02/14/19 06:32 3 % 02/14/19 06:32 Glucose 78 mg/dL (65-100) 02/14/19 06:32 Calcium 8.7 mg/dL (8.4-10.2) 02/14/19 06:32 0.044 ng/mL (0.00-0.029) H D 02/15/19 11:30 Triglycerides 62 mg/dL (2-149) 02/13/19 10:01 Cholesterol 137 mg/dL (50-199) 02/13/19 10:01 67 mg/dL (50-130) 02/13/19 10:01 67 mg/dL (40-59) H 02/13/19 10:01 2.04 % 02/13/19 10:01 Active Medications - Current Medications Current Medications: Generic Name Dose Route Start Last Admin Trade Name Freq PRN Reason Stop Dose Admin Acetaminophen 650 mg 02/13/19 21:38 Tylenol PO Q4H PRN Pain MILD(1-3)/Fever >100.5/WOLFF Acetaminophen/Hydrocodone Bitart 1 each 02/13/19 21:46 02/14/19 14:08 [place] 10/325 PO 1 each Q4H PRN Administration Pain, Moderate (4-6) Albuterol 2.5 mg 02/13/19 22:10 Proventil IH Q4HRT PRN Shortness Of Breath Benzonatate 100 mg 02/14/19 14:00 02/16/19 06:39 Tessalon Perles PO Not Given Q8HR FERNANDO Clonidine HCl 0.3 mg 02/14/19 08:00 02/15/19 21:35 Catapres PO Not Given TID FERNANDO Dicyclomine HCl 10 mg 02/13/19 21:35 Bentyl PO QID PRN Pain Diphenhydramine HCl 25 mg 02/14/19 11:41 02/14/19 21:41 Benadryl PO 25 mg Q8H PRN Administration Itching Famotidine 10 mg 02/13/19 22:00 02/15/19 21:13 Pepcid PO 10 mg BID FERNANDO Administration Hydralazine HCl 100 mg 02/14/19 08:00 02/15/19 20:45 Apresoline PO Not Given TID FERNANDO Hydralazine HCl 10 mg 02/14/19 06:53 Apresoline IV Q3H PRN Blood Pressure Hydroxychloroquine Sulfate 200 mg 02/13/19 22:00 02/15/19 14:29 Plaquenil PO 200 mg QDAY [facility] Administration Sodium Chloride 100 mls @ 999 mls/hr 02/13/19 12:26 Nacl 0.9% IV ALYSSA PRN Hypotension Labetalol HCl 200 mg 02/14/19 08:00 02/16/19 01:18 Normodyne PO Not Given TID [facility] Levetiracetam 1,000 mg 02/13/19 22:00 02/16/19 09:12 Keppra PO 1,000 mg BID [facility] Administration Methocarbamol 750 mg 02/13/19 21:35 Robaxin PO Q6HR PRN Spasms Metoclopramide HCl 5 mg 02/13/19 22:09 Reglan PO TIDAC PRN Nausea And Vomiting Morphine Sulfate 2 mg 02/13/19 21:38 02/16/19 04:21 Morphine IV 2 mg Q4H PRN Administration Pain, Moderate (4-6) Ondansetron HCl 4 mg 02/13/19 21:35 Zofran Odt PO Q8HR PRN Nausea Ondansetron HCl 4 mg 02/13/19 21:38 02/16/19 09:11 Zofran IV 4 mg Q8H PRN Administration Nausea And Vomiting Phenytoin 100 mg 02/14/19 08:00 02/16/19 09:12 Dilantin PO 100 mg TID [facility] Administration Sertraline HCl 25 mg 02/13/19 22:00 02/15/19 14:30 Zoloft PO 25 mg QDAY FERNANDO Administration Sodium Chloride 10 ml 02/13/19 22:00 02/16/19 01:20 Sodium Chloride Flush Syringe 10 Ml IV Not Given BID FERNANDO Sodium Chloride 10 ml 02/13/19 21:38 Sodium Chloride Flush Syringe 10 Ml IV PRN PRN LINE FLUSH
--- NOTE | 2019-02-16 13:53 | Consultation ---
History of Present Illness - Reason for Consult Consult date: 02/16/19 Malfunctioning dialysis access - History of Present Illness The patient with a history of end-stage renal disease on hemodialysis from a right upper arm AV fistula. Patient is currently dialyzing through her right upper arm AV fistula. There is pulsatility of the fistula and enlargement. On palpation, the patient has a venous outflow stenosis. Past History Past Medical History: dialysis, ESRD, other (ESRD, Hypertension, SLE, Seizure disorder, Substance abuse) Past Surgical History: Other (AV access) Social history: no significant social history Family history: no significant family history Medications and Allergies Allergies Allergy/AdvReac Type Severity Reaction Status Date / Time acetaminophen [From Percocet] Allergy Itching Verified 04/21/18 08:28 lisinopril Allergy Swelling Verified 04/21/18 08:28 metoprolol Allergy Unknown Verified 04/21/18 08:28 oxycodone [From Percocet] Allergy Itching Verified 04/21/18 08:28 oxycodone HCl [From Percocet] AdvReac Unknown Verified 04/21/18 08:28 Home Medications Medication Instructions Recorded Confirmed Last Taken Type Albuterol Sulfate [Proair 2 puff IH Q4H PRN #1 pump 07/15/18 02/13/19 Unknown Rx Respiclick] Hydroxychloroquine [Plaquenil] 200 mg PO QDAY #30 tablet 07/24/18 02/13/19 Unknown Rx Clonidine HCl [Catapres] 0.3 mg PO TID 08/11/18 02/13/19 Unknown History Labetalol [Labetalol 200mg TAB] 200 mg PO TID 08/11/18 02/13/19 Unknown History Sertraline [Zoloft] 25 mg PO QDAY 08/11/18 02/13/19 Unknown History hydrALAZINE [Apresoline TAB] 100 mg PO TID 08/11/18 02/13/19 Unknown History HYDROcodone/APAP 10-325 [[place] 1 each PO Q4HR PRN #7 tablet 08/14/18 02/13/19 Unknown Rx 10-325 mg TAB] Dicyclomine [Bentyl] 10 mg PO QID PRN #20 capsule 09/10/18 02/13/19 Unknown Rx Ondansetron [Zofran ODT TAB] 4 mg PO Q8HR PRN #20 tab.rapdis 09/10/18 02/13/19 Unknown Rx Methocarbamol [Robaxin-750] 750 mg PO Q6HR PRN #10 tablet 11/12/18 02/13/19 Unknown Rx Metoclopramide HCl [Reglan TAB] 5 mg PO TIDAC PRN #20 tablet 12/15/18 02/13/19 Unknown Rx Phenytoin [Dilantin] 100 mg PO TID #90 capsule.er 01/16/19 02/13/19 Unknown Rx levETIRAcetam [Keppra TAB] 1,000 mg PO BID #60 tablet 01/16/19 02/13/19 Unknown Rx Active Meds: Active Medications Acetaminophen (Tylenol) 650 mg PO Q4H PRN PRN Reason: Pain MILD(1-3)/Fever >100.5/WOLFF Acetaminophen/Hydrocodone Bitart ([place] 10/325) 1 each PO Q4H PRN PRN Reason: Pain, Moderate (4-6) Last Admin: 02/14/19 14:08 Dose: 1 each Documented by: Albuterol (Proventil) 2.5 mg IH Q4HRT PRN PRN Reason: Shortness Of Breath Benzonatate (Tessalon Perles) 100 mg PO Q8HR [facility] Last Admin: 02/16/19 06:39 Dose: Not Given Documented by: Clonidine HCl (Catapres) 0.3 mg PO TID [facility] Last Admin: 02/15/19 21:35 Dose: Not Given Documented by: Dicyclomine HCl (Bentyl) 10 mg PO QID PRN PRN Reason: Pain Diphenhydramine HCl (Benadryl) 25 mg PO Q8H PRN PRN Reason: Itching Last Admin: 02/14/19 21:41 Dose: 25 mg Documented by: Famotidine (Pepcid) 10 mg PO BID [facility] Last Admin: 02/15/19 21:13 Dose: 10 mg Documented by: Hydralazine HCl (Apresoline) 100 mg PO TID [facility] Last Admin: 02/15/19 20:45 Dose: Not Given Documented by: Hydralazine HCl (Apresoline) 10 mg IV Q3H PRN PRN Reason: Blood Pressure Hydroxychloroquine Sulfate (Plaquenil) 200 mg PO QDAY [facility] Last Admin: 02/15/19 14:29 Dose: 200 mg Documented by: Sodium Chloride (Nacl 0.9%) 100 mls @ 999 mls/hr IV ALYSSA PRN PRN Reason: Hypotension Labetalol HCl (Normodyne) 200 mg PO TID [facility] Last Admin: 02/16/19 01:18 Dose: Not Given Documented by: Levetiracetam (Keppra) 1,000 mg PO BID [facility] Last Admin: 02/16/19 09:12 Dose: 1,000 mg Documented by: Methocarbamol (Robaxin) 750 mg PO Q6HR PRN PRN Reason: Spasms Metoclopramide HCl (Reglan) 5 mg PO TIDAC PRN PRN Reason: Nausea And Vomiting Morphine Sulfate (Morphine) 2 mg IV Q4H PRN PRN Reason: Pain, Moderate (4-6) Last Admin: 02/16/19 04:21 Dose: 2 mg Documented by: Ondansetron HCl (Zofran Odt) 4 mg PO Q8HR PRN PRN Reason: Nausea Ondansetron HCl (Zofran) 4 mg IV Q8H PRN PRN Reason: Nausea And Vomiting Last Admin: 02/16/19 09:11 Dose: 4 mg Documented by: Phenytoin (Dilantin) 100 mg PO TID [facility] Last Admin: 02/16/19 09:12 Dose: 100 mg Documented by: Sertraline HCl (Zoloft) 25 mg PO QDAY [facility] Last Admin: 02/15/19 14:30 Dose: 25 mg Documented by: Sodium Chloride (Sodium Chloride Flush Syringe 10 Ml) 10 ml IV BID [facility] Last Admin: 02/16/19 01:20 Dose: Not Given Documented by: Sodium Chloride (Sodium Chloride Flush Syringe 10 Ml) 10 ml IV PRN PRN PRN Reason: LINE FLUSH Review of Systems All systems: negative Exam - Constitutional Vitals: Temp Pulse Resp BP Pulse Ox 98.2 F 96 H 18 111/84 98 02/16/19 10:00 02/16/19 11:45 02/16/19 10:00 02/16/19 11:45 02/16/19 09:05 General appearance: Present: no acute distress - EENT Eyes: Present: EOM intact ENT: hearing intact - Neck Neck: Present: supple, normal ROM - Respiratory Respiratory effort: normal - Extremities Extremities: abnormal - Abdominal General gastrointestinal: Present: deferred Female genitourinary: Present: deferred - Rectal Rectal Exam: deferred - Psychiatric Psychiatric: cooperative Results - Labs CBC & Chem 7: 02/13/19 07:37 02/14/19 06:32 Assessment and Plan Patient will be scheduled for a fistulogram tomorrow.
[2019-02-16] MEDS ORDERED: VANCOMYCIN PHARMACY TO DOSE IV SCH (18:00)
[2019-02-16] MEDS ORDERED: VANCOMYCIN 1,500 MG in NACL 0.9% 500 ML 500 ML IV ONE (18:15)
[2019-02-16] MEDS: CATAPRES PO SCH ×2 (18:21→18:34)
[2019-02-16] MEDS: APRESOLINE PO SCH (18:21)
[2019-02-16] MEDS: PEPCID PO SCH (18:22)
[2019-02-16] MEDS: ZOLOFT PO SCH (18:25)
[2019-02-16] MEDS: PLAQUENIL PO SCH (18:25)
--- NOTE | 2019-02-17 00:01 | Consultation ---
Consultation is requested by Dr. Diamond. CONSULTING PHYSICIAN: Dr. Gisell Villarreal. HISTORY OF PRESENT ILLNESS: This is a 28-year-old female who was admitted to the hospital with complaints of chest pain for further evaluation and management. The patient is known to have lupus. She also has end-stage renal disease and on hemodialysis. On the day of admission, the patient was supposed to have hemodialysis, but she came to the Emergency Room because of the chest pain. At that time, the patient was noted to have markedly elevated blood pressure of 190/123. The patient states that the pain is located over the left side of the chest. It is intermittent in nature. She describes it also is sharp in nature. No tenderness according to her. Her pain is made worse by deep breathing. No definite radiation to the neck, throat, or arms. Some dizziness and shortness of breath noted with the chest pain. The patient does give a history of exertional dyspnea and fatigue. She cannot do much according to her. She states that it is because of her chronic back pain for which she is under pain management and that limits her from doing any exercise. There are no prior known cardiac problems. The patient denied any history of orthopnea, PND, edema of feet, palpitations or claudications. Dizziness noted. No syncope. The patient also stated that she had cardiac workup done recently, but she did not know the details. PAST MEDICAL HISTORY: Includes, 1. Hypertension. 2. History of end-stage renal disease, on hemodialysis. 3. Lupus. 4. History of chronic arthritis. 5. History of seizure disorder, on medications. 6. Chronic headaches and migraine headaches. 7. History of asthma. PAST SURGICAL HISTORY: Right arm graft. SOCIAL HISTORY: The patient is a current smoker. Nonalcoholic. FAMILY HISTORY: Positive for hypertension. ALLERGIES: THE PATIENT IS ALLERGIC TO LISINOPRIL, METOPROLOL, OXYCODONE AND PERCOCET. MEDICATIONS: At the time of admission, the patient was on albuterol inhaler, clonidine 0.3 mg p.o. t.i.d., labetalol 200 mg p.o. t.i.d., Zoloft 25 mg p.o. daily, hydralazine 100 mg p.o. t.i.d., Dilantin 100 mg p.o. t.i.d., Keppra 1000 mg p.o. b.i.d. REVIEW OF SYSTEMS: CARDIOVASCULAR: As described above. RESPIRATORY: The patient does give history of asthma. GASTROINTESTINAL: Unremarkable. GENITOURINARY: Unremarkable. NEUROLOGICAL: Unremarkable. PHYSICAL EXAMINATION: GENERAL: This is a 28-year-old -[place] female, moderately built and nourished, in no acute distress at the present time. The patient was conscious, alert, oriented, afebrile. VITAL SIGNS: Normal and stable. SKIN: Warm and dry. HEENT: Pupils are reactive. NECK: Supple. Both carotids well palpable. No definite bruit. No JVD. CHEST: Lungs are clear. CARDIOVASCULAR: S1, S2 heard well. Grade 2/6 systolic murmur noted at the aortic area and left sternal border. No diastolic murmur, no gallop rhythm. ABDOMEN: Soft, nontender. EXTREMITIES: No edema, no calf tenderness. Good peripheral pulses. NEUROLOGIC: Evaluation was grossly within normal limits. RECTAL AND PELVIC: Not done at this time. LABORATORY DATA: EKG done showed normal sinus rhythm, no acute changes. The patient's hemoglobin was 11.5, hematocrit 34.9. The patient's BUN was 40, creatinine was 9.6, glucose was 90. Cholesterol 137, triglycerides 62. IMPRESSION: 1. Chest pain? cause, rule out cardiac etiology. 2. Hypertension. 3. Lupus. 4. End-stage renal disease, on hemodialysis. 5. Seizure disorder. This is a 28-year-old female with multiple medical problems who is now admitted to the hospital with complaints of chest pain for further evaluation and management. The patient's chest pain is rather atypical for cardiac etiology. No evidence of any myocardial infarction at the present time. So we will proceed with a Lexiscan thallium test to rule out any cardiac etiology. If negative, we may also obtain an echocardiogram to assess the cardiac status further and rule out the possibility of any lupus, pericarditis and pericardial effusion contributing to her symptoms. I have discussed this with the patient. Meanwhile, continue present medications. Call us if any further questions. We will follow the patient along with you. JOB# [id number] FARHEEN/ALLYSSA
[2019-02-17] MEDS: TESSALON PERLES PO SCH (06:45)
[2019-02-17] MEDS: MORPHINE IV PRN (06:45)
[2019-02-17 07:48] LABS: Hematocrit 30.5 % (30.3-42.9); Hemoglobin 10.1 gm/dl (10.1-14.3); Mean Corpuscular HGB Conc 33 % (30-34); Mean Corpuscular Volume 95 fl (79-97); Platelet Count 116 K/mm3 (140-440)
[2019-02-17 07:52] LABS: Red Cell Distribution Width 21.2 % (13.2-15.2)
[2019-02-17 08:08] LABS: Calcium 8.1 mg/dL (8.4-10.2)
[2019-02-17] MEDS ORDERED: HEPARIN/NS 5000 UNIT/500ML(CATH LAB) 1,000 ML IR ONE (08:20)
[2019-02-17] MEDS ORDERED: HEPARIN 10,000 UNITS/10 ML ONE (08:20)
[2019-02-17] MEDS ORDERED: XYLOCAINE 2% INFILTRATI ONE (08:21)
[2019-02-17] MEDS ORDERED: NACL 0.9% 500 ML 0 ML ONE (08:21)
[2019-02-17] MEDS: VERSED ONE ×2 (09:17→09:19)
[2019-02-17] MEDS: SUBLIMAZE ONE ×2 (09:18→09:19)
--- NOTE | 2019-02-17 09:42 | Operative Report ---
Operative Report Operative Report: Exam: Right upper extremity fistulogram, venoplasty Clinical indication: Patient with proximal distention of the fistula and some pulsatility suggesting venous outflow stenosis Date: 02/17/2019 Procedure: Following an explanation of the risks, benefits and alternatives; written informed consent was obtained. The patient was brought to the angiographic suite and placed in supine position on the examination table. Initial evaluation of the fistula demonstrated some tortuosity and proximal dilatation. The patient's right upper arm was prepped and draped in the usual sterile fashion. 1% lidocaine was used for anesthesia. The fistula was cannulated towards the venous outflow using a 7 cm 21-gauge n eedle. A 0.018 guidewire was advanced centrally. The needle was removed and a micro-sheath placed. The 0.018 guidewire was exchanged for a 0.035 guidewire and the micro-sheath exchanged for a 7 [place] vascular sheath. Contrast was injected through the sheath and imaging obtained at multiple locations. There is multifocal stenoses 40-50% within the venous outflow over a long segment. The central veins are patent. Venoplasty of the venous outflow was performed using an 8 mm x 80 mm balloon insufflated abdominal atmospheres at multiple locations. Post angioplasty imaging demonstrated reduction of the multifocal stenoses to 10-20% throughout their course. The balloon and guidewire were removed. The sheath was removed and hemostasis achieved using 3-0 Vicryl suture and Dermabond. A sterile dressing was applied. The patient tolerated the procedure well. There were no immediate postprocedure complications. Conscious sedation was provided under the guidance of radiologic nursing. Continuous cardiopulmonary monitoring was utilized. Impression: 1) Right upper extremity fistulogram demonstrating multifocal 40 - 50% stenoses over a long segment in the venous outflow tract. 2) Venoplasty of the above stenoses with residual 10 - 20% stenosis.
--- NOTE | 2019-02-17 09:44 | Progress Note ---
Assessment and Plan Patient with multifocal stenoses within the venous outflow track now treated. The patient may be discharged home from a vascular standpoint. Subjective Date of service: 02/17/19 Principal diagnosis: dialysis access malfunction Interval history: Patient with a history of right upper arm fistula demonstrating some distention at the site of cannulation. The patient was brought to the radiographic suite and a fistulogram was performed with Amy plasty of the venous outflow tract to reduce multifocal stenoses. The fistula itself is easily accessible. Objective - Constitutional Vitals: Vital Signs - 12hr 02/16/19 02/17/19 02/17/19 22:17 03:38 05:23 Temperature 98.9 F 97.5 F L Pulse Rate 105 H 103 H Respiratory 18 18 Rate Blood Pressure 131/82 96/63 O2 Sat by Pulse 100 97 100 Oximetry 02/17/19 07:50 Temperature Pulse Rate Respiratory 20 Rate Blood Pressure O2 Sat by Pulse Oximetry General appearance: Present: no acute distress - EENT Eyes: EOM intact ENT: hearing intact - Neck Neck: supple, normal ROM - Respiratory Respiratory effort: normal - Breasts Breasts: deferred - Cardiovascular Rhythm: regular Extremities: abnormal - Gastrointestinal General gastrointestinal: Present: deferred Rectal Exam: deferred - Genitourinary Female genitourinary: deferred - Psychiatric Psychiatric: cooperative - Labs CBC & Chem 7: 02/17/19 07:25 02/17/19 07:25 Labs: Abnormal lab results 02/17/19 02/17/19 Range/Units 07:25 07:25 WBC 3.1 L (4.5-11.0) K/mm3 RBC 3.20 L (3.65-5.03) M/mm3 RDW 21.2 H (13.2-15.2) % Plt Count 116 L (140-440) K/mm3 Chloride 95.8 L (98-107) mmol/L BUN 18 H (7-17) mg/dL Creatinine 6.8 H (0.7-1.2) mg/dL Calcium 8.1 L (8.4-10.2) mg/dL Medications & Allergies - Medications Allergies/Adverse Reactions: Allergies acetaminophen [From Percocet] Allergy (Verified 04/21/18 08:28) Itching lisinopril Allergy (Verified 04/21/18 08:28) Swelling metoprolol Allergy (Verified 04/21/18 08:28) Unknown oxycodone [From Percocet] Allergy (Verified 04/21/18 08:28) Itching oxycodone HCl [From Percocet] Adverse Reaction (Verified 04/21/18 08:28) Unknown Home Medications: Home Medications Medication Instructions Recorded Confirmed Last Taken Type Albuterol Sulfate [Proair 2 puff IH Q4H PRN #1 pump 07/15/18 02/13/19 Unknown Rx Respiclick] Hydroxychloroquine [Plaquenil] 200 mg PO QDAY #30 tablet 07/24/18 02/13/19 Unknown Rx Clonidine HCl [Catapres] 0.3 mg PO TID 08/11/18 02/13/19 Unknown History Labetalol [Labetalol 200mg TAB] 200 mg PO TID 08/11/18 02/13/19 Unknown History Sertraline [Zoloft] 25 mg PO QDAY 08/11/18 02/13/19 Unknown History hydrALAZINE [Apresoline TAB] 100 mg PO TID 08/11/18 02/13/19 Unknown History HYDROcodone/APAP 10-325 [[place] 1 each PO Q4HR PRN #7 tablet 08/14/18 02/13/19 Unknown Rx 10-325 mg TAB] Dicyclomine [Bentyl] 10 mg PO QID PRN #20 capsule 09/10/18 02/13/19 Unknown Rx Ondansetron [Zofran ODT TAB] 4 mg PO Q8HR PRN #20 tab.rapdis 09/10/18 02/13/19 Unknown Rx Methocarbamol [Robaxin-750] 750 mg PO Q6HR PRN #10 tablet 11/12/18 02/13/19 Unknown Rx Metoclopramide HCl [Reglan TAB] 5 mg PO TIDAC PRN #20 tablet 12/15/18 02/13/19 Unknown Rx Phenytoin [Dilantin] 100 mg PO TID #90 capsule.er 01/16/19 02/13/19 Unknown Rx levETIRAcetam [Keppra TAB] 1,000 mg PO BID #60 tablet 01/16/19 02/13/19 Unknown Rx Active Medications: Generic Name Dose Route Start Last Admin Trade Name Freq PRN Reason Stop Dose Admin Acetaminophen 650 mg 02/13/19 21:38 Tylenol PO Q4H PRN Pain MILD(1-3)/Fever >100.5/WOLFF Acetaminophen/Hydrocodone [place] 1 each 02/13/19 21:46 02/14/19 14:08 [place] 10/325 PO 1 each Q4H PRN Administration Pain, Moderate (4-6) Albuterol 2.5 mg 02/13/19 22:10 Proventil IH Q4HRT PRN Shortness Of Breath Benzonatate 100 mg 02/14/19 14:00 02/17/19 06:45 Tessalon Perles PO 100 mg Q8HR FERNANDO Administration Clonidine HCl 0.3 mg 02/14/19 08:00 02/16/19 18:34 Catapres PO 0.3 mg TID FERNANDO Administration Dicyclomine HCl 10 mg 02/13/19 21:35 Bentyl PO QID PRN Pain Diphenhydramine HCl 25 mg 02/14/19 11:41 02/14/19 21:41 Benadryl PO 25 mg Q8H PRN Administration Itching Famotidine 10 mg 02/13/19 22:00 02/16/19 18:22 Pepcid PO Not Given BID [facility] Hydralazine HCl 100 mg 02/14/19 08:00 02/16/19 18:21 Apresoline PO Not Given TID [facility] Hydralazine HCl 10 mg 02/14/19 06:53 Apresoline IV Q3H PRN Blood Pressure Hydroxychloroquine Sulfate 200 mg 02/13/19 22:00 02/16/19 18:25 Plaquenil PO 200 mg QDAY FERNANDO Administration Sodium Chloride 100 mls @ 999 mls/hr 02/13/19 12:26 Nacl 0.9% IV ALYSSA PRN Hypotension Vancomycin HCl 1 gm in 250 mls @ 167.007 mls/hr 02/18/19 18:00 Vancomycin/Ns 1 Gm/250 Ml IV [id number]@1800 FERNANDO Labetalol HCl 200 mg 02/14/19 08:00 02/16/19 18:22 Normodyne PO Not Given TID FERNANDO Levetiracetam 1,000 mg 02/13/19 22:00 02/16/19 09:12 Keppra PO 1,000 mg BID FERNANDO Administration Methocarbamol 750 mg 02/13/19 21:35 Robaxin PO Q6HR PRN Spasms Metoclopramide HCl 5 mg 02/13/19 22:09 Reglan PO TIDAC PRN Nausea And Vomiting Morphine Sulfate 2 mg 02/13/19 21:38 02/17/19 06:45 Morphine IV 2 mg Q4H PRN Administration Pain, Moderate (4-6) Ondansetron HCl 4 mg 02/13/19 21:35 Zofran Odt PO Q8HR PRN Nausea Ondansetron HCl 4 mg 02/13/19 21:38 02/16/19 16:37 Zofran IV 4 mg Q8H PRN Administration Nausea And Vomiting Phenytoin 100 mg 02/14/19 08:00 02/16/19 18:26 Dilantin PO 100 mg TID FERNANDO Administration Sertraline HCl 25 mg 02/13/19 22:00 02/16/19 18:25 Zoloft PO 25 mg QDAY FERNANDO Administration Sodium Chloride 10 ml 02/13/19 22:00 02/16/19 16:41 Sodium Chloride Flush Syringe 10 Ml IV 10 ml BID FERNANDO Administration Sodium Chloride 10 ml 02/13/19 21:38 Sodium Chloride Flush Syringe 10 Ml IV PRN PRN LINE FLUSH
[2019-02-17] MEDS: KEPPRA PO SCH (11:29)
[2019-02-17] MEDS: DILANTIN PO SCH (11:29)
[2019-02-17] MEDS: APRESOLINE PO SCH (11:30)
[2019-02-17] MEDS: NORMODYNE PO SCH (11:30)
[2019-02-17] MEDS: PEPCID PO SCH (11:30)
[2019-02-17] MEDS: CATAPRES PO SCH (11:30)
[2019-02-17] MEDS: PLAQUENIL PO SCH (11:30)
[2019-02-17] MEDS: SODIUM CHLORIDE FLUSH SYRINGE 10 ML IV SCH (11:31)
[2019-02-17] MEDS: ZOLOFT PO SCH (11:35)
[2019-02-17 12:09] VITALS: BP 111/73
--- NOTE | 2019-02-17 13:10 | Progress Note ---
Subjective Principal diagnosis: dialysis access malfunction Interval history: Patient was seen today for follow-up on multiple renal related issues follow blood culture negative Has had fistulogram Willing to follow up with Dr. Sanchez Patient denies having any chest pain pressure or shortness of breath Vitals labs intake output medications were reviewed Social history: Reviewed Allergies: Reviewed Family history: Reviewed Physical examination HEENT: Oral mucosa moist no pallor or icterus Neck: Supple no JVD Chest: Clear to auscultation anteriorly CVS: Regular rate and rhythm S1 and S2 heard Abdomen: Soft nontender no suprapubic masses no organomegaly appreciable Extremity: Dry skin less than 1+ peripheral edema Fistula: Appears to be tense and has aneurysmal dilation better Musculoskeletal: No joint effusion noted in knees and ankle Neurological: Alert awake Dermatology: No petechial rashes Psychiatry: No evidence of any agitation and aggression noted Assessment and plan; end-stage renal disease, continue dialysis 3 times a week Fever culture negative patient is feeling better one out of 2 sets positive likely contamination Fever very likely appears to be due to lupus patient advised to monitor, follow- up with rheumatology If fever is returning back she will need to come back to ER Status post-fistulogram and venoplasty swelling appears to be Extensively counseled and educated regarding end-stage r Poorly compliant patient, counseling and education was done CT scan negative for pulmonary embolism, Anemia in end-stage renal disease: Monitor hemoglobin and hematocrit, erythropoietin as needed Secondary hyperparathyroidism periodically check phosphorus and PTH level, goal phosphorus less than 5.5 PTH less than 600, educated about renal osteodystrophy Hypertension and volume: , Adjust medications as needed, ultrafiltration as tolerated keep systolic blood pressure above 100 Malnutrition risk: High please consider high protein diet as well as nutrition follow-up, patient needs at least 1.5 g protein per KG body weight, adequately counseled and educated We'll continue to follow and make recommendation from renal standpoint Objective - Vital Signs Vital signs: Vital Signs - 12hr 02/17/19 02/17/19 02/17/19 03:38 05:23 07:50 Temperature 97.5 F L Pulse Rate 103 H Respiratory 18 20 Rate Blood Pressure 96/63 O2 Sat by Pulse 97 100 Oximetry 02/17/19 12:08 Temperature 98.8 F Pulse Rate 93 H Respiratory 19 Rate Blood Pressure 111/73 O2 Sat by Pulse 99 Oximetry - Lab 02/17/19 07:25 02/17/19 07:25 Most recent lab results Calcium 8.1 mg/dL (8.4-10.2) L 02/17/19 07:25 Medications & Allergies - Medications Allergies/Adverse Reactions: Allergies acetaminophen [From Percocet] Allergy (Verified 04/21/18 08:28) Itching lisinopril Allergy (Verified 04/21/18 08:28) Swelling metoprolol Allergy (Verified 04/21/18 08:28) Unknown oxycodone [From Percocet] Allergy (Verified 04/21/18 08:28) Itching oxycodone HCl [From Percocet] Adverse Reaction (Verified 04/21/18 08:28) Unknown Home Medications: Home Medications Medication Instructions Recorded Confirmed Last Taken Type Hydroxychloroquine [Plaquenil] 200 mg PO QDAY #30 tablet 07/24/18 02/13/19 Unknown Rx Clonidine HCl [Catapres] 0.3 mg PO TID 08/11/18 02/13/19 Unknown History hydrALAZINE [Apresoline TAB] 100 mg PO TID 08/11/18 02/13/19 Unknown History Dicyclomine [Bentyl] 10 mg PO QID PRN #20 capsule 09/10/18 02/13/19 Unknown Rx Metoclopramide HCl [Reglan TAB] 5 mg PO TIDAC PRN #20 tablet 12/15/18 02/13/19 Unknown Rx levETIRAcetam [Keppra TAB] 1,000 mg PO BID #60 tablet 01/16/19 02/13/19 Unknown Rx Albuterol Sulfate [Proair 2 puff IH Q4H PRN #1 pump 02/17/19 Unknown Rx Respiclick] HYDROcodone/APAP 10-325 [[place] 1 each PO Q4H PRN #14 tablet 02/17/19 Unknown Rx 10-325 mg TAB] Hydroxychloroquine [Plaquenil] 200 mg PO QDAY tablet 02/17/19 Unknown Rx Labetalol [Labetalol 200mg TAB] 200 mg PO TID #60 tablet 02/17/19 Unknown Rx Phenytoin [Dilantin] 100 mg PO TID capsule.er 02/17/19 Unknown Rx Sertraline [Zoloft] 25 mg PO QDAY tablet 02/17/19 Unknown Rx levETIRAcetam [Keppra TAB] 1,000 mg PO BID tablet 02/17/19 Unknown Rx methOCARBAMOL [Robaxin TAB] 750 mg PO Q6HR PRN #60 tablet 02/17/19 Unknown Rx Active Medications: Generic Name Dose Route Start Last Admin Trade Name Freq PRN Reason Stop Dose Admin Acetaminophen 650 mg 02/13/19 21:38 Tylenol PO Q4H PRN Pain MILD(1-3)/Fever >100.5/WOLFF Acetaminophen/Hydrocodone [place] 1 each 02/13/19 21:46 02/14/19 14:08 [place] 10/325 PO 1 each Q4H PRN Administration Pain, Moderate (4-6) Albuterol 2.5 mg 02/13/19 22:10 Proventil IH Q4HRT PRN Shortness Of Breath Benzonatate 100 mg 02/14/19 14:00 02/17/19 06:45 Tessalon Perles PO 100 mg Q8HR FERNANDO Administration Clonidine HCl 0.3 mg 02/14/19 08:00 02/17/19 11:30 Catapres PO 0.3 mg TID FERNANDO Administration Dicyclomine HCl 10 mg 02/13/19 21:35 Bentyl PO QID PRN Pain Diphenhydramine HCl 25 mg 02/14/19 11:41 02/14/19 21:41 Benadryl PO 25 mg Q8H PRN Administration Itching Famotidine 10 mg 02/13/19 22:00 02/17/19 11:30 Pepcid PO 10 mg BID FERNANDO Administration Hydralazine HCl 100 mg 02/14/19 08:00 02/17/19 11:30 Apresoline PO 100 mg TID FERNANDO Administration Hydralazine HCl 10 mg 02/14/19 06:53 Apresoline IV Q3H PRN Blood Pressure Hydroxychloroquine Sulfate 200 mg 02/13/19 22:00 02/17/19 11:30 Plaquenil PO 200 mg QDAY FERNANDO Administration Sodium Chloride 100 mls @ 999 mls/hr 02/13/19 12:26 Nacl 0.9% IV ALYSSA PRN Hypotension Vancomycin HCl 1 gm in 250 mls @ 167.007 mls/hr 02/18/19 18:00 Vancomycin/Ns 1 Gm/250 Ml IV TuThSa@1800 FERNANDO Labetalol HCl 200 mg 02/14/19 08:00 02/17/19 11:30 Normodyne PO 200 mg TID FERNANDO Administration Levetiracetam 1,000 mg 02/13/19 22:00 02/17/19 11:29 Keppra PO 1,000 mg BID FERNANDO Administration Methocarbamol 750 mg 02/13/19 21:35 Robaxin PO Q6HR PRN Spasms Metoclopramide HCl 5 mg 02/13/19 22:09 Reglan PO TIDAC PRN Nausea And Vomiting Morphine Sulfate 2 mg 02/13/19 21:38 02/17/19 06:45 Morphine IV 2 mg Q4H PRN Administration Pain, Moderate (4-6) Ondansetron HCl 4 mg 02/13/19 21:35 Zofran Odt PO Q8HR PRN Nausea Ondansetron HCl 4 mg 02/13/19 21:38 02/16/19 16:37 Zofran IV 4 mg Q8H PRN Administration Nausea And Vomiting Phenytoin 100 mg 02/14/19 08:00 02/17/19 11:29 Dilantin PO 100 mg TID FERNANDO Administration Sertraline HCl 25 mg 02/13/19 22:00 02/17/19 11:35 Zoloft PO 25 mg QDAY FERNANDO Administration Sodium Chloride 10 ml 02/13/19 22:00 02/17/19 11:31 Sodium Chloride Flush Syringe 10 Ml IV 10 ml BID FERNANDO Administration Sodium Chloride 10 ml 02/13/19 21:38 Sodium Chloride Flush Syringe 10 Ml IV PRN PRN LINE FLUSH
--- NOTE | 2019-02-17 13:27 | Discharge Summary ---
Providers - Providers Date of Admission: 02/13/19 13:58 Date of discharge: 02/17/19 Attending physician: KENAN CHAIREZ 02/13/19 12:32 Consult to Physician [CONS] Stat Comment: Consulting Provider: PADMINI NELSON Physician Instructions: Reason For Exam: end-stage renal disease requiring dialysis 02/15/19 13:35 Consult to Physician [CONS] Routine Comment: Consulting Provider: DOC RIVAS Physician Instructions: Reason For Exam: chest pains, seen by your group with [facility] 02/201802/16/19 09:26 Consult to Physician [CONS] Routine Comment: Consulting Provider: LINCOLN PERDOMO Physician Instructions: Reason For Exam: fistula eval Primary care physician: ROCIO TOMAS Hospitalization Condition: Good Pertinent studies: Patient had cannulation of vascular access. Hospital course: Patient 28-year-old with a history of multiple stenosis of venous catheter. Right upper arm fistula with distention at cannulization site. Patient underwent procedure by interventional radiology and patient was able to use catheter again. Patient had CT scan of chest negative for PE. Patient also has stress tests Lexiscan was negative as well. Patient is stabilized for discharge with normal functioning vascular access after venous cath low procedure. Disposition: DC-01 TO HOME OR SELFCARE - Discharge Diagnoses (1) Hemodialysis catheter malfunction Status: Acute (2) Chest pain Status: Acute Qualifiers: (3) ESRD (end stage renal disease) on dialysis Status: Chronic Core Measure Documentation - Palliative Care Palliative Care/ Comfort Measures: Not Applicable - Core Measures Any of the following diagnoses?: none Exam - Constitutional Vitals: Temp Pulse Resp BP Pulse Ox 98.8 F 93 H 19 111/73 99 02/17/19 12:08 02/17/19 12:08 02/17/19 12:08 02/17/19 12:08 02/17/19 12:08 General appearance: Present: no acute distress, well-nourished - EENT Eyes: Present: PERRL ENT: hearing intact, clear oral mucosa - Neck Neck: Present: supple, normal ROM - Respiratory Respiratory effort: normal Respiratory: bilateral: CTA - Cardiovascular Heart Sounds: Present: S1 & S2. Absent: rub, click - Extremities Extremities: pulses symmetrical, No edema Peripheral Pulses: within normal limits - Abdominal General gastrointestinal: Present: soft, non-tender, non-distended, normal bowel sounds Female genitourinary: Present: normal - Integumentary Integumentary: Present: clear, warm, dry - Musculoskeletal Musculoskeletal: strength equal bilaterally, other (right arm has good thrill and bruit. No pain.) - Psychiatric Psychiatric: appropriate mood/affect, intact judgment & insight - Neurologic Neurologic: CNII-XII intact, moves all extremities Plan Activity: no restrictions Weight Bearing Status: Full Weight Bearing Diet: low salt, renal Follow up with: ROCIO TOMAS MD [Primary Care Provider] - 3-5 Days Prescriptions: Labetalol [Labetalol 200mg TAB] 200 mg PO TID #60 tablet HYDROcodone/APAP 10-325 [[place] 10-325 mg TAB] 1 each PO Q4H PRN #14 tablet PRN Reason: Pain, Moderate (4-6) Albuterol Sulfate [Proair Respiclick] 2 puff IH Q4H PRN #1 pump PRN Reason: difficulty breathing methOCARBAMOL [Robaxin TAB] 750 mg PO Q6HR PRN #60 tablet PRN Reason: Spasms
--- NOTE | 2019-02-17 13:32 | Progress Note ---
Assessment and Plan Assessment: Chest pain - AMI ruled out; s/p stress test which was negative; currently resolved. HTN Lupus ESRD on HD H/o seizure disorder Plan: Currently stable cardiac status. Pt reports resolution of chest pain. Pt may discharge home from cardiology standpoint. Will plan for echo as OP. Recommend pt follow up in our office with Dr. Villarreal within 1-2 weeks of hospital discharge ([phone]). The patient has been seen in conjunction with Dr. Villarreal who agrees with the assessment and plan of care. Subjective Date of service: 02/17/19 Principal diagnosis: dialysis access malfunction Interval history: pt resting in bed, no current cardiac complaints. states chest pain has resolved. Objective Last Vital Signs Temp 98.8 F 02/17/19 12:08 Pulse 93 H 02/17/19 12:08 Resp 19 02/17/19 12:08 BP 111/73 02/17/19 12:08 Pulse Ox 99 02/17/19 12:08 - Physical Examination General: No Apparent Distress HEENT: Positive: PERRL, Normocephaly, Mucus Membranes Moist Neck: Positive: neck supple, trachea midline Cardiac: Positive: Reg Rate and Rhythm, S1/S2 Lungs: Positive: Decreased Breath Sounds Neuro: Positive: Grossly Intact Abdomen: Positive: Soft. Negative: Tender Skin: Positive: Wound. Negative: Rash Musculoskeletal: No Pain Extremities: Absent: edema - Labs and Meds CBC 02/17/19 Range/Units 07:25 WBC 3.1 L (4.5-11.0) K/mm3 RBC 3.20 L (3.65-5.03) M/mm3 Hgb 10.1 (10.1-14.3) gm/dl Hct 30.5 (30.3-42.9) % Plt Count 116 L (140-440) K/mm3 Comprehensive Metabolic Panel 02/17/19 Range/Units 07:25 Sodium 137 (137-145) mmol/L Potassium 4.8 D (3.6-5.0) mmol/L Chloride 95.8 L (98-107) mmol/L Carbon Dioxide 27 (22-30) mmol/L BUN 18 H (7-17) mg/dL Creatinine 6.8 H (0.7-1.2) mg/dL Glucose 98 (65-100) mg/dL Calcium 8.1 L (8.4-10.2) mg/dL - Imaging and Cardiology EKG: report reviewed (NSR 89/min) - Telemetry EKG Rhythm: Sinus Rhythm
[2019-02-18] MEDS ORDERED: VANCOMYCIN/NS 1 GM/250 ML 1 GM/250 ML BAG IV SCH (18:00)
--- NOTE | 2019-02-19 10:43 | Treadmill Report ---
NUCLEAR MYOCARDIAL PERFUSION IMAGING REPORT Nuclear myocardial perfusion imaging using technetium pyrophosphate sestamibi was obtained. One-day protocol was followed with the rest images, followed by post-stress images and also gated post-stress images were analyzed. Post-stress images showed small mild basal lateral defect, which is more or less unchanged during the rest suggesting this is a fixed defect maybe artifactual with no evidence of reversibility. Left ventricular size was found to be normal with normal wall thickening and contractility. Calculated post-stress ejection fraction was found to be 53%. Transient ischemic dilation ratio was found to be 0.91. FINAL IMPRESSION: 1. Myocardial perfusion images did not show any significant ischemia. 2. Normal left ventricular systolic function, calculated to be 53% with normal wall thickening noted. 3. This was found to be prognostically low-risk study for future cardiac events. JOB# [id number] ALMA/ALLYSSA
== END 2019-02-17 16:00 | disposition home or self-care (01) | DRG 252 ==
LOC: ED 06:26 → 3A 13:58
PROVIDERS: ADMIT Internal Medicine; ATTEND Internal Medicine
PROC: 5A1D70Z Performance of Urinary Filtration, Intermittent, Less than 6 Hours Per Day (ICD-10-PCS; 2019-02-13)
PROC: 5A1D70Z Performance of Urinary Filtration, Intermittent, Less than 6 Hours Per Day (ICD-10-PCS; 2019-02-16)
PROC: B51 Imaging, Veins, Fluoroscopy (ICD-10-PCS; principal; 2019-02-17)
PROC: 057Y3ZZ Dilation of Upper Vein, Percutaneous Approach (ICD-10-PCS; 2019-02-17)
DX: T82.41XA Breakdown (mechanical) of vascular dialysis catheter, initial encounter (principal); N18.6 End stage renal disease; I16.1 Hypertensive emergency; I13.2 Hypertensive heart and chronic kidney disease with heart failure and with stage 5 chronic kidney disease, or end stage renal disease; N25.81 Secondary hyperparathyroidism of renal origin; T82.858A Stenosis of other vascular prosthetic devices, implants and grafts, initial encounter; M94.0 Chondrocostal junction syndrome [Tietze]; M32.9 Systemic lupus erythematosus, unspecified; G40.909 Epilepsy, unspecified, not intractable, without status epilepticus; M19.90 Unspecified osteoarthritis, unspecified site; G43.909 Migraine, unspecified, not intractable, without status migrainosus; F17.210 Nicotine dependence, cigarettes, uncomplicated; D63.1 Anemia in chronic kidney disease; R07.89 Other chest pain; Y83.8 Other surgical procedures as the cause of abnormal reaction of the patient, or of later complication, without mention of misadventure at the time of the procedure; Y92.89 Other specified places as the place of occurrence of the external cause; Z88.8 Allergy status to other drugs, medicaments and biological substances
CPT/HCPCS: 36415; 36902; 71045; 71275; 78452; 80048; 80061; 84484; 85027; 85379; 85610; 85730; 87040; 93005; 93010; 93017; 96374; 99406; G0378; A9502; C1725; C1769; C1894; J0360; J1200; J1644; J2250; J2270; J2405; J2765; J2785; J3010; J3370; J7030; J7040; Q9967

== ENCOUNTER 2019-03-04 13:12 | Emergency (ER) | payer MEDICARE ==
[2019-03-04] MEDS ORDERED: KEPPRA 1,000 MG/NS 0.75% 100ML 1,000 MG/100 ML BAG IV ONE (13:33)
[2019-03-04 14:24] LABS: Basophils % (Auto) 0.5 % (0.0-1.8); Eosinophils % (Auto) 1.2 % (0.0-4.3); Hematocrit 31.3 % (30.3-42.9); Hemoglobin 10.3 gm/dl (10.1-14.3); Lymphocytes # (Auto) 0.4 K/mm3 (1.2-5.4); Lymphocytes % (Auto) 11.3 % (13.4-35.0); Mean Corpuscular HGB Conc 33 % (30-34); Mean Corpuscular Volume 96 fl (79-97); Monocytes # (Auto) 0.4 K/mm3 (0.0-0.8); Monocytes % (Auto) 11.2 % (0.0-7.3); Platelet Count 197 K/mm3 (140-440); Red Blood Count 3.25 M/mm3 (3.65-5.03)
[2019-03-04 14:31] LABS: Red Cell Distribution Width 21.7 % (13.2-15.2)
[2019-03-04 14:44] LABS: Calcium 8.6 mg/dL (8.4-10.2)
--- NOTE | 2019-03-04 16:57 | Emergency Department Report ---
ED Seizure HPI - General Chief Complaint: Headache Stated Complaint: SEIZURE Time Seen by Provider: 03/04/19 13:33 Source: patient, EMS Mode of arrival: Stretcher Limitations: No Limitations - History of Present Illness Initial Comments: Ms. Turner is a 29-year-old female with history of lupus, hypertension, asthma, CHF, end-stage renal disease had seizure while undergoing dialysis today. She has history of seizure disorder. She takes Keppra. She denies any pain at this time. Denies fever. She has been compliant with her medications. MD Complaint: seizure Description of Episode: loss of consciousness, tonic-clonic movement Witnessed:: Yes Trauma: No Seizure History: known seizure disorder Place: other (dialysis Center) Associated Symptoms: denies other symptoms - Related Data Home Medications Medication Instructions Recorded Confirmed Last Taken Clonidine HCl [Catapres] 0.3 mg PO TID 08/11/18 02/13/19 Unknown hydrALAZINE [Apresoline TAB] 100 mg PO TID 08/11/18 02/13/19 Unknown Previous Rx's Medication Instructions Recorded Last Taken Type Hydroxychloroquine [Plaquenil] 200 mg PO QDAY #30 tablet 07/24/18 Unknown Rx Dicyclomine [Bentyl] 10 mg PO QID PRN #20 capsule 09/10/18 Unknown Rx Metoclopramide HCl [Reglan TAB] 5 mg PO TIDAC PRN #20 tablet 12/15/18 Unknown Rx levETIRAcetam [Keppra TAB] 1,000 mg PO BID #60 tablet 01/16/19 Unknown Rx Albuterol Sulfate [Proair 2 puff IH Q4H PRN #1 pump 02/17/19 Unknown Rx Respiclick] HYDROcodone/APAP 10-325 [[place] 1 each PO Q4H PRN #14 tablet 02/17/19 Unknown Rx 10-325 mg TAB] Hydroxychloroquine [Plaquenil] 200 mg PO QDAY tablet 02/17/19 Unknown Rx Labetalol [Labetalol 200mg TAB] 200 mg PO TID #60 tablet 02/17/19 Unknown Rx Phenytoin [Dilantin] 100 mg PO TID capsule.er 02/17/19 Unknown Rx Sertraline [Zoloft] 25 mg PO QDAY tablet 02/17/19 Unknown Rx levETIRAcetam [Keppra TAB] 1,000 mg PO BID tablet 02/17/19 Unknown Rx methOCARBAMOL [Robaxin TAB] 750 mg PO Q6HR PRN #60 tablet 02/17/19 Unknown Rx Allergies Allergy/AdvReac Type Severity Reaction Status Date / Time acetaminophen [From Percocet] Allergy Itching Verified 04/21/18 08:28 lisinopril Allergy Swelling Verified 04/21/18 08:28 metoprolol Allergy Unknown Verified 04/21/18 08:28 oxycodone [From Percocet] Allergy Itching Verified 04/21/18 08:28 oxycodone HCl [From Percocet] AdvReac Unknown Verified 04/21/18 08:28 ED Review of Systems ROS: Stated complaint: SEIZURE Other details as noted in HPI Comment: All other systems reviewed and negative Constitutional: denies: fever, malaise Respiratory: denies: cough Cardiovascular: denies: chest pain ED Past Medical Hx - Past Medical History Previous Medical History?: Yes Hx Hypertension: Yes Hx Congestive Heart Failure: No Hx Renal Disease: Yes (Tues, Thurs, Sat) Hx Arthritis: Yes Hx Headaches / Migraines: Yes Hx Seizures: Yes Hx Asthma: Yes Hx COPD: Yes Additional medical history: Lupus - Surgical History Additional Surgical History: RIGHT ARM graft - Social History Smoking Status: Unknown if ever smoked - Medications Home Medications: Home Medications Medication Instructions Recorded Confirmed Last Taken Type Hydroxychloroquine [Plaquenil] 200 mg PO QDAY #30 tablet 07/24/18 02/13/19 Unknown Rx Clonidine HCl [Catapres] 0.3 mg PO TID 08/11/18 02/13/19 Unknown History hydrALAZINE [Apresoline TAB] 100 mg PO TID 08/11/18 02/13/19 Unknown History Dicyclomine [Bentyl] 10 mg PO QID PRN #20 capsule 09/10/18 02/13/19 Unknown Rx Metoclopramide HCl [Reglan TAB] 5 mg PO TIDAC PRN #20 tablet 12/15/18 02/13/19 Unknown Rx levETIRAcetam [Keppra TAB] 1,000 mg PO BID #60 tablet 01/16/19 02/13/19 Unknown Rx Albuterol Sulfate [Proair 2 puff IH Q4H PRN #1 pump 02/17/19 Unknown Rx Respiclick] HYDROcodone/APAP 10-325 [[place] 1 each PO Q4H PRN #14 tablet 02/17/19 Unknown Rx 10-325 mg TAB] Hydroxychloroquine [Plaquenil] 200 mg PO QDAY tablet 02/17/19 Unknown Rx Labetalol [Labetalol 200mg TAB] 200 mg PO TID #60 tablet 02/17/19 Unknown Rx Phenytoin [Dilantin] 100 mg PO TID capsule.er 02/17/19 Unknown Rx Sertraline [Zoloft] 25 mg PO QDAY tablet 02/17/19 Unknown Rx levETIRAcetam [Keppra TAB] 1,000 mg PO BID tablet 02/17/19 Unknown Rx methOCARBAMOL [Robaxin TAB] 750 mg PO Q6HR PRN #60 tablet 02/17/19 Unknown Rx ED Physical Exam - General Limitations: No Limitations General appearance: alert, in no apparent distress - Head Head exam: Present: atraumatic, normocephalic - Eye Eye exam: Present: normal appearance - ENT ENT exam: Present: mucous membranes moist - Neck Neck exam: Present: normal inspection, full ROM - Respiratory Respiratory exam: Present: normal lung sounds bilaterally. Absent: respiratory distress, wheezes, rales, rhonchi - Cardiovascular Cardiovascular Exam: Present: regular rate, normal rhythm, normal heart sounds. Absent: systolic murmur, diastolic murmur, rubs, gallop - GI/Abdominal GI/Abdominal exam: Present: soft, normal bowel sounds. Absent: distended, tenderness, guarding, rebound - Extremities Exam Extremities exam: Present: normal inspection - Back Exam Back exam: Present: normal inspection - Neurological Exam Neurological exam: Present: alert, oriented X3 - Psychiatric Psychiatric exam: Present: normal affect, normal mood - Skin Skin exam: Present: warm, dry, intact, normal color. Absent: rash ED Course Vital Signs 03/04/19 03/04/19 13:42 13:43 Temperature 98.2 F Pulse Rate 82 Respiratory 15 15 Rate Blood Pressure 137/87 [Left] O2 Sat by Pulse 100 100 Oximetry ED Medical Decision Making - Lab Data Result diagrams: 03/04/19 14:13 03/04/19 14:13 - Medical Decision Making Ms. Turner had seizure while undergoing dialysis. Known history of seizure disorder on Keppra. She received Keppra load in the ED. She has observed in the ED for 4 hours without recurrent seizure activity. She had normal mental status upon arrival per EMS. Discharged home. Critical care attestation.: If time is entered above; I have spent that time in minutes in the direct care of this critically ill patient, excluding procedure time. ED Disposition Clinical Impression: Seizure Disposition: DC-01 TO HOME OR SELFCARE Is pt being admited?: No Does the pt Need Aspirin: No Condition: Stable Instructions: Recurrent Seizures Adult (ED)
[2019-03-04 18:48] VITALS: BP 138/95
== END 2019-03-04 19:01 | disposition home or self-care (01) ==
LOC: ED 13:12
DX: G40.909 Epilepsy, unspecified, not intractable, without status epilepticus (principal); I13.2 Hypertensive heart and chronic kidney disease with heart failure and with stage 5 chronic kidney disease, or end stage renal disease; N18.6 End stage renal disease; I50.9 Heart failure, unspecified; M19.90 Unspecified osteoarthritis, unspecified site; Z99.2 Dependence on renal dialysis; L93.0 Discoid lupus erythematosus; Z88.6 Allergy status to analgesic agent; Z88.8 Allergy status to other drugs, medicaments and biological substances; Z88.5 Allergy status to narcotic agent; Z79.899 Other long term (current) drug therapy
CPT/HCPCS: 36415; 80048; 85025; 96374; 99284; J1953

== ENCOUNTER 2019-03-07 08:30 | Emergency (ER) | payer MEDICARE ==
[2019-03-07 09:47] LABS: Basophils % (Auto) 0.2 % (0.0-1.8); Eosinophils % (Auto) 0.6 % (0.0-4.3); Hematocrit 35.7 % (30.3-42.9); Hemoglobin 11.6 gm/dl (10.1-14.3); Lymphocytes # (Auto) 0.4 K/mm3 (1.2-5.4); Lymphocytes % (Auto) 4.7 % (13.4-35.0); Mean Corpuscular HGB Conc 33 % (30-34); Mean Corpuscular Volume 98 fl (79-97); Monocytes # (Auto) 0.6 K/mm3 (0.0-0.8); Monocytes % (Auto) 8.1 % (0.0-7.3); Platelet Count 237 K/mm3 (140-440); Red Blood Count 3.63 M/mm3 (3.65-5.03); Red Cell Distribution Width 22.4 % (13.2-15.2)
[2019-03-07] MEDS ORDERED: ATIVAN IV ONE (09:58)
[2019-03-07] MEDS ORDERED: KEPPRA 1,000 MG/NS 0.75% 100ML 1,000 MG/100 ML BAG IV ONE (09:58)
[2019-03-07 10:01] LABS: Albumin 3.6 g/dL (3.9-5); BUN/Creatinine Ratio 3; Blood Urea Nitrogen 21 mg/dL (7-17); Calcium 8.4 mg/dL (8.4-10.2); Hemolysis Index 4
[2019-03-07] MEDS ORDERED: ATIVAN ONE (10:01)
[2019-03-07 10:39] LABS: Alanine Aminotransferase < 5 units/L (7-56)
[2019-03-07 10:51] LABS: Bilirubin,Urine Negative (Negative); Blood,Urine Negative (Negative); Color,Urine Yellow (Yellow); RBC,Urine < 1.0 /HPF (0.0-6.0); Urobilinogen,Urine < 2.0 mg/dL (<2.0)
[2019-03-07 10:52] LABS: Bacteria,Urine 1+ /HPF (Negative); Mucus,Urine 1+ /HPF
--- NOTE | 2019-03-07 13:05 | Emergency Department Report ---
ED Seizure HPI - General Chief Complaint: Seizure Stated Complaint: SEIZURE/FEVER/BACK PAIN Time Seen by Provider: 03/07/19 10:18 Source: EMS Mode of arrival: Stretcher Limitations: No Limitations - History of Present Illness Initial Comments: Patient is a 29-year-old female with a past medical history of end-stage renal disease who is on dialysis on Friday and Friday as well as hypertension and lupus and seizure disorder who is presenting status post seizure. The patient has seizure earlier today was being transported to the emergency department. Patient was lucid on arrival and complains of pain all over. Just before my history of physical patient had another seizure is most likely rectal type of initial evaluation by myself. According to nurse who talked to EMS patient has had no nausea vomiting diarrhea or other complaints other than body aches. Patient according to paramedics had a temperature of 100 en route. - Related Data Home Medications Medication Instructions Recorded Confirmed Last Taken Clonidine HCl [Catapres] 0.3 mg PO TID 08/11/18 02/13/19 Unknown hydrALAZINE [Apresoline TAB] 100 mg PO TID 08/11/18 02/13/19 Unknown Previous Rx's Medication Instructions Recorded Last Taken Type Hydroxychloroquine [Plaquenil] 200 mg PO QDAY #30 tablet 07/24/18 Unknown Rx Dicyclomine [Bentyl] 10 mg PO QID PRN #20 capsule 09/10/18 Unknown Rx Metoclopramide HCl [Reglan TAB] 5 mg PO TIDAC PRN #20 tablet 12/15/18 Unknown Rx levETIRAcetam [Keppra TAB] 1,000 mg PO BID #60 tablet 01/16/19 Unknown Rx Albuterol Sulfate [Proair 2 puff IH Q4H PRN #1 pump 02/17/19 Unknown Rx Respiclick] HYDROcodone/APAP 10-325 [[place] 1 each PO Q4H PRN #14 tablet 02/17/19 Unknown Rx 10-325 mg TAB] Hydroxychloroquine [Plaquenil] 200 mg PO QDAY tablet 02/17/19 Unknown Rx Labetalol [Labetalol 200mg TAB] 200 mg PO TID #60 tablet 02/17/19 Unknown Rx Sertraline [Zoloft] 25 mg PO QDAY tablet 02/17/19 Unknown Rx methOCARBAMOL [Robaxin TAB] 750 mg PO Q6HR PRN #60 tablet 02/17/19 Unknown Rx HYDROcodone/APAP 5-325 [[place] 1 each PO Q6HR PRN #14 tablet 03/07/19 Unknown Rx 5/325] Phenytoin [Dilantin] 100 mg PO TID #90 capsule.er 03/07/19 Unknown Rx levETIRAcetam [Keppra TAB] 1,000 mg PO BID #60 tablet 03/07/19 Unknown Rx methOCARBAMOL [Robaxin TAB] 500 mg PO Q6H PRN #14 tablet 03/07/19 Unknown Rx Allergies Allergy/AdvReac Type Severity Reaction Status Date / Time acetaminophen [From Percocet] Allergy Itching Verified 04/21/18 08:28 lisinopril Allergy Swelling Verified 04/21/18 08:28 metoprolol Allergy Unknown Verified 04/21/18 08:28 oxycodone [From Percocet] Allergy Itching Verified 04/21/18 08:28 oxycodone HCl [From Percocet] AdvReac Unknown Verified 04/21/18 08:28 ED Review of Systems ROS: Stated complaint: SEIZURE/FEVER/BACK PAIN Other details as noted in HPI Comment: Unobtainable due to pts medical conditions ED Past Medical Hx - Past Medical History Hx Hypertension: Yes Hx Congestive Heart Failure: No Hx Renal Disease: Yes (Tues, Thurs, Sat) Hx Arthritis: Yes Hx Headaches / Migraines: Yes Hx Seizures: Yes Hx Asthma: Yes Hx COPD: Yes Additional medical history: Lupus - Surgical History Additional Surgical History: RIGHT ARM graft - Social History Smoking Status: Never Smoker - Medications Home Medications: Home Medications Medication Instructions Recorded Confirmed Last Taken Type Hydroxychloroquine [Plaquenil] 200 mg PO QDAY #30 tablet 07/24/18 02/13/19 Unknown Rx Clonidine HCl [Catapres] 0.3 mg PO TID 08/11/18 02/13/19 Unknown History hydrALAZINE [Apresoline TAB] 100 mg PO TID 08/11/18 02/13/19 Unknown History Dicyclomine [Bentyl] 10 mg PO QID PRN #20 capsule 09/10/18 02/13/19 Unknown Rx Metoclopramide HCl [Reglan TAB] 5 mg PO TIDAC PRN #20 tablet 12/15/18 02/13/19 Unknown Rx levETIRAcetam [Keppra TAB] 1,000 mg PO BID #60 tablet 01/16/19 02/13/19 Unknown Rx Albuterol Sulfate [Proair 2 puff IH Q4H PRN #1 pump 02/17/19 Unknown Rx Respiclick] HYDROcodone/APAP 10-325 [[place] 1 each PO Q4H PRN #14 tablet 02/17/19 Unknown Rx 10-325 mg TAB] Hydroxychloroquine [Plaquenil] 200 mg PO QDAY tablet 02/17/19 Unknown Rx Labetalol [Labetalol 200mg TAB] 200 mg PO TID #60 tablet 02/17/19 Unknown Rx Sertraline [Zoloft] 25 mg PO QDAY tablet 02/17/19 Unknown Rx methOCARBAMOL [Robaxin TAB] 750 mg PO Q6HR PRN #60 tablet 02/17/19 Unknown Rx HYDROcodone/APAP 5-325 [[place] 1 each PO Q6HR PRN #14 tablet 03/07/19 Unknown Rx 5/325] Phenytoin [Dilantin] 100 mg PO TID #90 capsule.er 03/07/19 Unknown Rx levETIRAcetam [Keppra TAB] 1,000 mg PO BID #60 tablet 03/07/19 Unknown Rx methOCARBAMOL [Robaxin TAB] 500 mg PO Q6H PRN #14 tablet 03/07/19 Unknown Rx ED Physical Exam - General Limitations: No Limitations General appearance: in no apparent distress, lethargic - Head Head exam: Present: atraumatic, normocephalic - Eye Eye exam: Present: normal appearance, PERRL, EOMI - ENT ENT exam: Present: mucous membranes moist - Neck Neck exam: Present: normal inspection - Respiratory Respiratory exam: Present: normal lung sounds bilaterally. Absent: respiratory distress, wheezes, rales, rhonchi - Cardiovascular Cardiovascular Exam: Present: normal rhythm, tachycardia, normal heart sounds. Absent: systolic murmur, diastolic murmur, rubs, gallop - GI/Abdominal GI/Abdominal exam: Present: soft, normal bowel sounds. Absent: distended, tenderness, guarding, rigid - Extremities Exam Extremities exam: Present: normal inspection - Back Exam Back exam: Present: normal inspection - Neurological Exam Neurological exam: Present: alert, altered (patient received Ativan for her seizure) - Psychiatric Psychiatric exam: Present: normal affect, normal mood - Skin Skin exam: Present: warm, dry, intact, normal color. Absent: rash ED Course Vital Signs 03/07/19 03/07/19 03/07/19 09:25 10:34 11:08 Temperature 99.4 F Pulse Rate 107 H 87 117 H Respiratory 17 18 18 Rate Blood Pressure 149/104 Blood Pressure 149/104 147/101 124/67 [Right] O2 Sat by Pulse 100 100 100 Oximetry 03/07/19 03/07/19 12:12 13:48 Temperature 99.8 F H Pulse Rate 111 H 107 H Respiratory 17 17 Rate Blood Pressure Blood Pressure 122/67 124/69 [Right] O2 Sat by Pulse 100 100 Oximetry - Reevaluation(s) Reevaluation #1: 03/07/19 13:39 Patient is more coherent at this time. Did ask her where specifically her pain was located and she stated her lower back and left shoulder. Patient with x- rays done. Patient's Dilantin level has returned and does show that she is subtherapeutic and she'll be loaded with Dilantin as well. ED Medical Decision Making - Lab Data Result diagrams: 03/07/19 Unknown 03/07/19 Unknown Lab Results 03/07/19 03/07/19 03/07/19 Range/Units 10:00 11:02 11:02 WBC (4.5-11.0) K/mm3 RBC (3.65-5.03) M/mm3 Hgb (10.1-14.3) gm/dl Hct (30.3-42.9) % MCV (79-97) fl MCH (28-32) pg MCHC (30-34) % RDW (13.2-15.2) % Plt Count (140-440) K/mm3 Lymph % (Auto) (13.4-35.0) % [place] % (Auto) (0.0-7.3) % Eos % (Auto) (0.0-4.3) % Baso % (Auto) (0.0-1.8) % Lymph # (1.2-5.4) K/mm3 [place] # (0.0-0.8) K/mm3 Eos # (0.0-0.4) K/mm3 Baso # (0.0-0.1) K/mm3 Seg Neutrophils % (40.0-70.0) % Seg Neutrophils # (1.8-7.7) K/mm3 Sodium (137-145) mmol/L Potassium (3.6-5.0) mmol/L Chloride (98-107) mmol/L Carbon Dioxide (22-30) mmol/L Anion Gap mmol/L BUN (7-17) mg/dL Creatinine (0.7-1.2) mg/dL Estimated GFR ml/min BUN/Creatinine Ratio % Glucose (65-100) mg/dL Calcium (8.4-10.2) mg/dL Total Bilirubin (0.1-1.2) mg/dL AST (5-40) units/L ALT (7-56) units/L Alkaline Phosphatase (35-129) units/L Total Creatine Kinase 208 H (30-135) units/L Total Protein (6.3-8.2) g/dL Albumin (3.9-5) g/dL Albumin/Globulin Ratio % Urine Color Yellow (Yellow) Urine Turbidity Hazy (Clear) Urine pH 6.0 (5.0-7.0) Ur Specific [place] 1.010 (1.003-1.030) Urine Protein 100 mg/dl (Negative) mg/dL Urine Glucose (UA) Negative (Negative) mg/dL Urine Ketones Negative (Negative) mg/dL Urine Blood Negative (Negative) Urine Nitrite Negative (Negative) Urine Bilirubin Negative (Negative) Urine Urobilinogen < 2.0 (<2.0) mg/dL Ur Leukocyte Esterase Trace (Negative) Urine WBC (Auto) 1.0 (0.0-6.0) /HPF Urine RBC (Auto) < 1.0 (0.0-6.0) /HPF U Epithel Cells (Auto) 6.0 (0-13.0) /HPF Urine Bacteria (Auto) 1+ (Negative) /HPF Urine Mucus 1+ /HPF Phenytoin 3.5 L (10.0-20.0) ug/mL 03/07/19 03/07/19 Range/Units Unknown Unknown WBC 7.9 (4.5-11.0) K/mm3 RBC 3.63 L (3.65-5.03) M/mm3 Hgb 11.6 (10.1-14.3) gm/dl Hct 35.7 (30.3-42.9) % MCV 98 H (79-97) fl MCH 32 (28-32) pg MCHC 33 (30-34) % RDW 22.4 H (13.2-15.2) % Plt Count 237 (140-440) K/mm3 Lymph % (Auto) 4.7 L (13.4-35.0) % [place] % (Auto) 8.1 H (0.0-7.3) % Eos % (Auto) 0.6 (0.0-4.3) % Baso % (Auto) 0.2 (0.0-1.8) % Lymph # 0.4 L (1.2-5.4) K/mm3 [place] # 0.6 (0.0-0.8) K/mm3 Eos # 0.0 (0.0-0.4) K/mm3 Baso # 0.0 (0.0-0.1) K/mm3 Seg Neutrophils % 86.4 H (40.0-70.0) % Seg Neutrophils # 6.8 (1.8-7.7) K/mm3 Sodium 134 L (137-145) mmol/L Potassium 3.7 (3.6-5.0) mmol/L Chloride 96.3 L (98-107) mmol/L Carbon Dioxide 18 L (22-30) mmol/L Anion Gap 23 mmol/L BUN 21 H (7-17) mg/dL Creatinine 7.8 H (0.7-1.2) mg/dL Estimated GFR 7 ml/min BUN/Creatinine Ratio 3 % Glucose 75 (65-100) mg/dL Calcium 8.4 (8.4-10.2) mg/dL Total Bilirubin 0.20 (0.1-1.2) mg/dL AST 12 (5-40) units/L ALT < 5 L (7-56) units/L Alkaline Phosphatase 156 H (35-129) units/L Total Creatine Kinase (30-135) units/L Total Protein 7.9 (6.3-8.2) g/dL Albumin 3.6 L (3.9-5) g/dL Albumin/Globulin Ratio 0.8 % Urine Color (Yellow) Urine Turbidity (Clear) Urine pH (5.0-7.0) Ur Specific [place] (1.003-1.030) Urine Protein (Negative) mg/dL Urine Glucose (UA) (Negative) mg/dL Urine Ketones (Negative) mg/dL Urine Blood (Negative) Urine Nitrite (Negative) Urine Bilirubin (Negative) Urine Urobilinogen (<2.0) mg/dL Ur Leukocyte Esterase (Negative) Urine WBC (Auto) (0.0-6.0) /HPF Urine RBC (Auto) (0.0-6.0) /HPF U Epithel Cells (Auto) (0-13.0) /HPF Urine Bacteria (Auto) (Negative) /HPF Urine Mucus /HPF Phenytoin (10.0-20.0) ug/mL - Radiology Data [address] [address] XRay Report Signed Patient: SANDRA DICKEY MR#: [id number] : 1990 Acct:[id number] Age/Sex: 29 / F ADM Date: 03/07/19 Loc: ED Attending Dr: Ordering Physician: SURY NAIR MD Date of Service: 03/07/19 Procedure(s): XR shoulder 2+V LT Accession Number(s): [id number] cc: SURY NAIR MD Fluoro Time In Minutes: PROCEDURE: XR SHOULDER 2+V LT TECHNIQUE: AP view of the left shoulder was obtained with internal/external rotation and scapular Y view. HISTORY: lt shoulder pain after SZ COMPARISONS: Prior left shoulder series 07/13/2018 FINDINGS: No fracture or dislocation is identified. Surgical clips are seen in the left axilla as well as a metallic stent. AC joint and glenohumeral joint are well maintained. Bone density appears normal. IMPRESSION: No acute abnormality is seen.. This document is electronically signed by Bharath Conner MD., March 07 2019 02:24:33 PM ET Transcribed By: DFN Dictated By: BHARATH CONNER MD Electronically Authenticated By: BHARATH CONNER MD Signed Date/Time: 03/07/19 1426 DD/ TD/TT: 03/07/[address] [address] XRay Report Signed Patient: SANDRA DCIKEY MR#: [id number] : 1990 Acct:[id number] Age/Sex: 29 / F ADM Date: 03/07/19 Loc: ED Atten ding Dr: Ordering Physician: SURY NAIR MD Date of Service: 03/07/19 Procedure(s): XR spine lumbosacral 2-3V Accession Number(s): [id number] cc: SURY NAIR MD Fluoro Time In Minutes: PROCEDURE: XR SPINE LUMBOSACRAL 2-3V TECHNIQUE: AP and lateral radiographs of the lumbar spine. HISTORY: lumbar pain after SZ COMPARISONS: None. FINDINGS: There are five lumbar type vertebral bodies. Mild levoconvex curvature of the lumbar spine may be positional. No spondylolisthesis. No compression fracture. The disc spaces are maintained. The paravertebral soft tissues are normal. IMPRESSION: No acute lumbar spine abnormality. This document is electronically signed by Karthik Leach., March 07 2019 02:22:59 PM ET Transcribed By: MG Dictated By: KARTHIK HUMPHREY MD Electronically Authenticated By: KARTHIK HUMPHREY MD Signed Date/Time: 03/07/19 1425 DD/ 1417 TD/TT: 03/07/19 - Medical Decision Making Patient is a 29-year-old Female who is subtherapeutic with her seizure medications is presenting status post seizure. Patient was monitored here in the emergency department if she was no longer postictal and the Ativan that was given 1 out off and she was able to ambulate. Patient has some aches and pains in her to the seizure is most likely just musculoskeletal strain says her shoulder and back x-rays are within normal limits. Patient be started on muscle relaxant patient will be discharged home. Critical care attestation.: If time is entered above; I have spent that time in minutes in the direct care of this critically ill patient, excluding procedure time. ED Disposition Clinical Impression: Seizure, Subtherapeutic phenytoin level, Musculoskeletal pain, ESRD (end stage renal disease) Disposition: - TO HOME OR SELFCARE Is pt being admited?: No Does the pt Need Aspirin: No Condition: Stable Referrals: ROCIO TOMAS MD [Primary Care Provider] - 3-5 Days Time of Disposition: 15:07
[2019-03-07] MEDS ORDERED: DILANTIN 1,000 MG in NACL 0.9% 250ML 250 ML IV ONE (13:34)
[2019-03-07] MEDS ORDERED: TORADOL IV ONE (13:37)
--- NOTE | 2019-03-07 14:25 | XRay Report ---
PROCEDURE: XR SPINE LUMBOSACRAL 2-3V TECHNIQUE: AP and lateral radiographs of the lumbar spine. HISTORY: lumbar pain after SZ COMPARISONS: None. FINDINGS: There are five lumbar type vertebral bodies. Mild levoconvex curvature of the lumbar spine may be positional. No spondylolisthesis. No compression fracture. The disc spaces are maintained. The paravertebral soft tissues are normal. IMPRESSION: No acute lumbar spine abnormality. This document is electronically signed by Idalia Leach., March 07 2019 02:22:59 PM ET
--- NOTE | 2019-03-07 14:26 | XRay Report ---
PROCEDURE: XR SHOULDER 2+V LT TECHNIQUE: AP view of the left shoulder was obtained with internal/external rotation and scapular Y view. HISTORY: lt shoulder pain after SZ COMPARISONS: Prior left shoulder series 07/13/2018 FINDINGS: No fracture or dislocation is identified. Surgical clips are seen in the left axilla as well as a met allic stent. AC joint and glenohumeral joint are well maintained. Bone density appears normal. IMPRESSION: No acute abnormality is seen.. This document is electronically signed by Bharath Griffith MD., March 07 2019 02:24:33 PM ET
[2019-03-07 18:16] VITALS: BP 152/97
== END 2019-03-07 19:40 | disposition home or self-care (01) ==
LOC: ED 08:30
DX: G40.909 Epilepsy, unspecified, not intractable, without status epilepticus (principal); R89.2 Abnormal level of other drugs, medicaments and biological substances in specimens from other organs, systems and tissues; M79.10 Myalgia, unspecified site; I12.0 Hypertensive chronic kidney disease with stage 5 chronic kidney disease or end stage renal disease; N18.6 End stage renal disease; M19.90 Unspecified osteoarthritis, unspecified site; G43.909 Migraine, unspecified, not intractable, without status migrainosus; J44.9 Chronic obstructive pulmonary disease, unspecified; Z79.899 Other long term (current) drug therapy; Z88.6 Allergy status to analgesic agent; Z88.8 Allergy status to other drugs, medicaments and biological substances; Z99.2 Dependence on renal dialysis
CPT/HCPCS: 36415; 72100; 73030; 80053; 80185; 81001; 82550; 85025; 93005; 93010; 96365; 96366; 96367; 96375; 99285; J1165; J1885; J1953; J2060; J7050; 96374; 99284

== ENCOUNTER 2019-03-19 12:06 | Emergency (ER) | payer MEDICARE ==
--- NOTE | 2019-03-19 12:56 | Emergency Department Report ---
ED Seizure HPI - General Chief Complaint: Seizure Stated Complaint: CONVULSIONS Time Seen by Provider: 03/19/19 12:23 Source: patient, EMS, old records reviewed Mode of arrival: Stretcher Limitations: No Limitations - History of Present Illness Initial Comments: 29-year-old female with a past medical history of asthma, lupus, hypertension, seizures, end-stage renal disease on dialysis Friday, , and Friday with complaints of seizure this a.m. Patient complains of generalized body pain. Mom told EMS that patient's pain quickly triggers her seizures. At this time patient is awake but moaning and not able to have a conversation or answer questions appropriately. Possibly postictal. In the past as documented patient was on both Keppra and Dilantin and was last here March 07 with seizure. Compliance with medication unknown at this time. She has been here multiple times recently for seizures and subtherapeutic levels of Dilantin. Even once patient is oriented and alert and is very difficult to obtain a history. She told the nurse that she was not taking her medication. She tells me that she is taking her medication. She constantly is stating that she doesn't want to be here and wants to go home and she needs pain medicine that starts with a D. - Related Data Home Medications Medication Instructions Recorded Confirmed Last Taken Clonidine HCl [Catapres] 0.3 mg PO TID 08/11/18 03/19/19 Unknown hydrALAZINE [Apresoline TAB] 100 mg PO TID 08/11/18 03/19/19 Unknown Previous Rx's Medication Instructions Recorded Last Taken Type Hydroxychloroquine [Plaquenil] 200 mg PO QDAY #30 tablet 07/24/18 Unknown Rx Dicyclomine [Bentyl] 10 mg PO QID PRN #20 capsule 09/10/18 Unknown Rx Metoclopramide HCl [Reglan TAB] 5 mg PO TIDAC PRN #20 tablet 12/15/18 Unknown Rx levETIRAcetam [Keppra TAB] 1,000 mg PO BID #60 tablet 01/16/19 Unknown Rx Albuterol Sulfate [Proair 2 puff IH Q4H PRN #1 pump 02/17/19 Unknown Rx Respiclick] HYDROcodone/APAP 10-325 [[place] 1 each PO Q4H PRN #14 tablet 02/17/19 Unknown Rx 10-325 mg TAB] Hydroxychloroquine [Plaquenil] 200 mg PO QDAY tablet 02/17/19 Unknown Rx Labetalol [Labetalol 200mg TAB] 200 mg PO TID #60 tablet 02/17/19 Unknown Rx Sertraline [Zoloft] 25 mg PO QDAY tablet 02/17/19 Unknown Rx methOCARBAMOL [Robaxin TAB] 750 mg PO Q6HR PRN #60 tablet 02/17/19 Unknown Rx HYDROcodone/APAP 5-325 [[place] 1 each PO Q6HR PRN #14 tablet 03/07/19 Unknown Rx 5/325] Phenytoin [Dilantin] 100 mg PO TID #90 capsule.er 03/07/19 Unknown Rx levETIRAcetam [Keppra TAB] 1,000 mg PO BID #60 tablet 03/07/19 Unknown Rx methOCARBAMOL [Robaxin TAB] 500 mg PO Q6H PRN #14 tablet 03/07/19 Unknown Rx Allergies Allergy/AdvReac Type Severity Reaction Status Date / Time acetaminophen [From Percocet] Allergy Itching Verified 04/21/18 08:28 lisinopril Allergy Swelling Verified 04/21/18 08:28 metoprolol Allergy Unknown Verified 04/21/18 08:28 oxycodone [From Percocet] Allergy Itching Verified 04/21/18 08:28 oxycodone HCl [From Percocet] AdvReac Unknown Verified 04/21/18 08:28 ED Review of Systems ROS: Stated complaint: CONVULSIONS Other details as noted in HPI Comment: All other systems reviewed and negative ED Past Medical Hx - Past Medical History Previous Medical History?: Yes Hx Hypertension: Yes Hx Congestive Heart Failure: No Hx Renal Disease: Yes (Tues, Thurs, Sat) Hx Arthritis: Yes Hx Headaches / Migraines: Yes Hx Seizures: Yes Hx Asthma: Yes Hx COPD: Yes Additional medical history: Lupus - Surgical History Past Surgical History?: Yes Additional Surgical History: RIGHT ARM graft - Social History Smoking Status: Unknown if ever smoked - Medications Home Medications: Home Medications Medication Instructions Recorded Confirmed Last Taken Type Hydroxychloroquine [Plaquenil] 200 mg PO QDAY #30 tablet 07/24/18 03/19/19 Unknown Rx Clonidine HCl [Catapres] 0.3 mg PO TID 08/11/18 03/19/19 Unknown History hydrALAZINE [Apresoline TAB] 100 mg PO TID 08/11/18 03/19/19 Unknown History Dicyclomine [Bentyl] 10 mg PO QID PRN #20 capsule 09/10/18 03/19/19 Unknown Rx Metoclopramide HCl [Reglan TAB] 5 mg PO TIDAC PRN #20 tablet 12/15/18 03/19/19 Unknown Rx levETIRAcetam [Keppra TAB] 1,000 mg PO BID #60 tablet 01/16/19 03/19/19 Unknown Rx Albuterol Sulfate [Proair 2 puff IH Q4H PRN #1 pump 02/17/19 03/19/19 Unknown Rx Respiclick] HYDROcodone/APAP 10-325 [[place] 1 each PO Q4H PRN #14 tablet 02/17/19 03/19/19 Unknown Rx 10-325 mg TAB] Hydroxychloroquine [Plaquenil] 200 mg PO QDAY tablet 02/17/19 03/19/19 Unknown Rx Labetalol [Labetalol 200mg TAB] 200 mg PO TID #60 tablet 02/17/19 03/19/19 Unknown Rx Sertraline [Zoloft] 25 mg PO QDAY tablet 02/17/19 03/19/19 Unknown Rx methOCARBAMOL [Robaxin TAB] 750 mg PO Q6HR PRN #60 tablet 02/17/19 03/19/19 Unknown Rx HYDROcodone/APAP 5-325 [[place] 1 each PO Q6HR PRN #14 tablet 03/07/19 03/19/19 Unknown Rx 5/325] Phenytoin [Dilantin] 100 mg PO TID #90 capsule.er 03/07/19 03/19/19 Unknown Rx levETIRAcetam [Keppra TAB] 1,000 mg PO BID #60 tablet 03/07/19 03/19/19 Unknown Rx methOCARBAMOL [Robaxin TAB] 500 mg PO Q6H PRN #14 tablet 03/07/19 03/19/19 Unknown Rx ED Physical Exam - General Limitations: No Limitations - Other Other exam information: General: Moaning, appears uncomfortable Head exam: Atraumatic, normocephalic Eyes exam: Normal appearance, pupils equal reactive to light, extraocular movements intact ENT: Moist mucous membrane, no blood in oropharynx Neck exam: Normal inspection, full range of motion, no meningismus nontender Respiratory exam: Clear to auscultation bilateral, no wheezes, rales, crackles Cardiovascular: Normal rate and rhythm, right arm AV access with thrill Abdomen: Soft, nondistended, and nontender, with normal bowel sounds, no rebound, or guarding Extremity: Full range of motion normal inspection no deformity Back: Normal Inspection, full range of motion, no tenderness Neurologic: Lethargic, opening eyes, makes incomprehensible sounds, able to follow basic commands, 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 She is a very difficult stick. We had to call the IV team to place an IV and obtain labs. Patient then requested pain medicine for back pain ED Medical Decision Making - Lab Data Result diagrams: 03/19/19 Unknown 03/19/19 Unknown Lab Results 03/19/19 03/19/19 03/19/19 Range/Units Unknown Unknown Unknown WBC 4.3 L (4.5-11.0) K/mm3 RBC 3.88 (3.65-5.03) M/mm3 Hgb 12.3 (10.1-14.3) gm/dl Hct 37.6 (30.3-42.9) % MCV 97 (79-97) fl MCH 32 (28-32) pg MCHC 33 (30-34) % RDW 18.7 H (13.2-15.2) % Plt Count 192 (140-440) K/mm3 Lymph % (Auto) 10.2 L (13.4-35.0) % [place] % (Auto) 6.4 (0.0-7.3) % Eos % (Auto) 2.5 (0.0-4.3) % Baso % (Auto) 2.6 H (0.0-1.8) % Lymph # 0.4 L (1.2-5.4) K/mm3 [place] # 0.3 (0.0-0.8) K/mm3 Eos # 0.1 (0.0-0.4) K/mm3 Baso # 0.1 (0.0-0.1) K/mm3 Seg Neutrophils % 78.3 H (40.0-70.0) % Seg Neutrophils # 3.4 (1.8-7.7) K/mm3 Sodium 134 L (137-145) mmol/L Potassium 5.0 (3.6-5.0) mmol/L Chloride 97.6 L (98-107) mmol/L Carbon Dioxide 24 (22-30) mmol/L Anion Gap 17 mmol/L BUN 23 H (7-17) mg/dL Creatinine 8.2 H (0.7-1.2) mg/dL Estimated GFR 7 ml/min BUN/Creatinine Ratio 3 % Glucose 71 (65-100) mg/dL Calcium 8.9 (8.4-10.2) mg/dL Magnesium 2.10 (1.7-2.3) mg/dL HCG, Qual (Negative) Phenytoin 2.4 L (10.0-20.0) ug/mL 03/19/19 Range/Units Unknown WBC (4.5-11.0) K/mm3 RBC (3.65-5.03) M/mm3 Hgb (10.1-14.3) gm/dl Hct (30.3-42.9) % MCV (79-97) fl MCH (28-32) pg MCHC (30-34) % RDW (13.2-15.2) % Plt Count (140-440) K/mm3 Lymph % (Auto) (13.4-35.0) % [place] % (Auto) (0.0-7.3) % Eos % (Auto) (0.0-4.3) % Baso % (Auto) (0.0-1.8) % Lymph # (1.2-5.4) K/mm3 [place] # (0.0-0.8) K/mm3 Eos # (0.0-0.4) K/mm3 Baso # (0.0-0.1) K/mm3 Seg Neutrophils % (40.0-70.0) % Seg Neutrophils # (1.8-7.7) K/mm3 Sodium (137-145) mmol/L Potassium (3.6-5.0) mmol/L Chloride (98-107) mmol/L Carbon Dioxide (22-30) mmol/L Anion Gap mmol/L BUN (7-17) mg/dL Creatinine (0.7-1.2) mg/dL Estimated GFR ml/min BUN/Creatinine Ratio % Glucose (65-100) mg/dL Calcium (8.4-10.2) mg/dL Magnesium (1.7-2.3) mg/dL HCG, Qual Negative (Negative) Phenytoin (10.0-20.0) ug/mL - Medical Decision Making Patient claims to be compliant with her meds but she has frequent ER visits with subtherapeutic phenytoin levels. She was loaded with Keppra and possible phenytoin in the ED. She arrived in morphine and Dilaudid for pain to her back, legs, and arms likely related to lupus. She states she has plenty of seizure medication at home and therefore be discharged to continue her medication as prescribed. - Differential Diagnosis seizure, electrolyte abnormalities, noncompliance Critical Care Time: No Critical care attestation.: If time is entered above; I have spent that time in minutes in the direct care of this critically ill patient, excluding procedure time. ED Disposition Clinical Impression: ESRD (end stage renal disease), Seizure, Subtherapeutic serum dilantin level, Lupus (systemic lupus erythematosus), Musculoskeletal pain Disposition: TO HOME OR SELFCARE Is pt being admited?: No Does the pt Need Aspirin: No Condition: Stable Instructions: End-Stage Kidney Disease (ED), Recurrent Seizures Adult (ED), Musculoskeletal Pain (ED) Additional Instructions: Continue your seizure medications as prescribed. Follow up with your doctor or the clinic/doctor provided. Return if symptoms worsen as indicated by your discharge instructions Referrals: [facility] MD MAR [Primary Care Provider] - 3-5 Days ZULEYMA CARRILLO MD [Staff Physician] - 3-5 Days (neurolgy ) MCKINLEY DE LA CRUZ MD [Staff Physician] - 3-5 Days (neurolgy ) Time of Disposition: 18:44
[2019-03-19] MEDS ORDERED: KEPPRA 1,000 MG/NS 0.75% 100ML 1,000 MG/100 ML BAG IV ONE (15:35)
[2019-03-19 16:39] LABS: Basophils # (Auto) 0.1 K/mm3 (0.0-0.1); Basophils % (Auto) 2.6 % (0.0-1.8); Eosinophils # (Auto) 0.1 K/mm3 (0.0-0.4); Eosinophils % (Auto) 2.5 % (0.0-4.3); Hematocrit 37.6 % (30.3-42.9); Hemoglobin 12.3 gm/dl (10.1-14.3); Lymphocytes # (Auto) 0.4 K/mm3 (1.2-5.4); Lymphocytes % (Auto) 10.2 % (13.4-35.0); Mean Corpuscular HGB Conc 33 % (30-34); Mean Corpuscular Volume 97 fl (79-97); Monocytes # (Auto) 0.3 K/mm3 (0.0-0.8); Monocytes % (Auto) 6.4 % (0.0-7.3); Platelet Count 192 K/mm3 (140-440); Red Blood Count 3.88 M/mm3 (3.65-5.03); Red Cell Distribution Width 18.7 % (13.2-15.2)
[2019-03-19] MEDS ORDERED: MORPHINE IV ONE (16:54)
[2019-03-19] MEDS ORDERED: ZOFRAN IV ONE (16:54)
[2019-03-19 17:20] LABS: Calcium 8.9 mg/dL (8.4-10.2)
[2019-03-19] MEDS ORDERED: DILANTIN 1,000 MG in NACL 0.9% 250ML 250 ML IV ONE (17:24)
[2019-03-19] MEDS ORDERED: DILAUDID IV ONE (17:43)
[2019-03-19] MEDS ORDERED: CEREBYX 1,000 MG.PE in NACL 0.9% 100 ML IV ONE (18:00)
[2019-03-19] MEDS ORDERED: CATAPRES PO ONE (18:07)
[2019-03-19 18:39] VITALS: BP 151/105
== END 2019-03-19 18:54 | disposition home or self-care (01) ==
LOC: ED 12:06
DX: L93.0 Discoid lupus erythematosus (principal); R89.2 Abnormal level of other drugs, medicaments and biological substances in specimens from other organs, systems and tissues; R56.9 Unspecified convulsions; I12.0 Hypertensive chronic kidney disease with stage 5 chronic kidney disease or end stage renal disease; N18.6 End stage renal disease; M19.90 Unspecified osteoarthritis, unspecified site; G43.909 Migraine, unspecified, not intractable, without status migrainosus; J44.9 Chronic obstructive pulmonary disease, unspecified; Z99.2 Dependence on renal dialysis; Z98.890 Other specified postprocedural states; Z79.899 Other long term (current) drug therapy; Z88.6 Allergy status to analgesic agent; Z88.8 Allergy status to other drugs, medicaments and biological substances
CPT/HCPCS: 36415; 80048; 80185; 83735; 84703; 85025; 93005; 93010; 96365; 96367; 96375; 99284; J1170; J1953; J2270; J2405; Q2009

== ENCOUNTER 2019-04-16 07:49 | Inpatient (IN) | payer MEDICARE ==
[2019-04-16] MEDS ORDERED: DILAUDID IV ONE ×2 (08:43→10:19)
[2019-04-16] MEDS ORDERED: ZOFRAN IV ONE (08:44)
[2019-04-16] MEDS ORDERED: BENADRYL IV ONE ×2 (08:45→09:36)
[2019-04-16 08:55] LABS: Basophils % (Auto) 0.4 % (0.0-1.8); Eosinophils # (Auto) 0.1 K/mm3 (0.0-0.4); Eosinophils % (Auto) 2.1 % (0.0-4.3); Hematocrit 39.3 % (30.3-42.9); Hemoglobin 12.9 gm/dl (10.1-14.3); Lymphocytes # (Auto) 0.4 K/mm3 (1.2-5.4); Lymphocytes % (Auto) 11.2 % (13.4-35.0); Mean Corpuscular HGB Conc 33 % (30-34); Mean Corpuscular Volume 95 fl (79-97); Monocytes # (Auto) 0.4 K/mm3 (0.0-0.8); Monocytes % (Auto) 9.8 % (0.0-7.3); Platelet Count 161 K/mm3 (140-440); Red Blood Count 4.15 M/mm3 (3.65-5.03); Red Cell Distribution Width 16.2 % (13.2-15.2)
[2019-04-16 09:05] LABS: INR 1.14 (0.87-1.13)
[2019-04-16 09:51] LABS: Creatine Kinase MB 1.8 ng/mL (0.0-4.0)
[2019-04-16 09:52] LABS: Albumin 3.8 g/dL (3.9-5)
[2019-04-16 10:03] LABS: Chol/HDL Ratio 2.26 %; HDL Cholesterol 49 mg/dL (40-59); LDL Cholesterol,Direct 63 mg/dL (50-130)
[2019-04-16] MEDS ORDERED: KEPPRA 1,000 MG/NS 0.75% 100ML 1,000 MG/100 ML BAG IV ONE (10:03)
--- NOTE | 2019-04-16 10:03 | Emergency Department Report ---
ED General Adult HPI - General Chief complaint: Seizure Stated complaint: SEIZURE Time Seen by Provider: 04/16/19 08:13 Source: patient, EMS Mode of arrival: Stretcher Limitations: No Limitations - History of Present Illness Initial comments: 29-year-old female who is reported to have had 2 brief seizures at home. She has been this facility several times for seizures. She has a history of noncompliance. I believe the patient has history of cocaine abuse and likely opioid dependency. At this time she is not providing very much historical information. She complains of pain all over. She states that she doesn't think she fell or hurt herself. She states that she was "awake" during the seizures. She is essentially referring allodynia. She is not admitting that she takes chronic opioids. She denies pain management. She states that she was dialyzed yesterday. She is initially poorly cooperating and writhing. She has vomited clear yellow material. -: unknown Quality: aching Consistency: constant Improves with: none Worsens with: none Associated Symptoms: nausea/vomiting Treatments Prior to Arrival: none - Related Data Home Medications Medication Instructions Recorded Confirmed Last Taken Clonidine HCl [Catapres] 0.3 mg PO TID 08/11/18 03/19/19 Unknown hydrALAZINE [Apresoline TAB] 100 mg PO TID 08/11/18 03/19/19 Unknown Previous Rx's Medication Instructions Recorded Last Taken Type Hydroxychloroquine [Plaquenil] 200 mg PO QDAY #30 tablet 07/24/18 Unknown Rx Dicyclomine [Bentyl] 10 mg PO QID PRN #20 capsule 09/10/18 Unknown Rx Metoclopramide HCl [Reglan TAB] 5 mg PO TIDAC PRN #20 tablet 12/15/18 Unknown Rx levETIRAcetam [Keppra TAB] 1,000 mg PO BID #60 tablet 01/16/19 Unknown Rx Albuterol Sulfate [Proair 2 puff IH Q4H PRN #1 pump 02/17/19 Unknown Rx Respiclick] HYDROcodone/APAP 10-325 [[place] 1 each PO Q4H PRN #14 tablet 02/17/19 Unknown Rx 10-325 mg TAB] Hydroxychloroquine [Plaquenil] 200 mg PO QDAY tablet 02/17/19 Unknown Rx Labetalol [Labetalol 200mg TAB] 200 mg PO TID #60 tablet 02/17/19 Unknown Rx Sertraline [Zoloft] 25 mg PO QDAY tablet 02/17/19 Unknown Rx methOCARBAMOL [Robaxin TAB] 750 mg PO Q6HR PRN #60 tablet 02/17/19 Unknown Rx HYDROcodone/APAP 5-325 [[place] 1 each PO Q6HR PRN #14 tablet 03/07/19 Unknown Rx 5/325] Phenytoin [Dilantin] 100 mg PO TID #90 capsule.er 03/07/19 Unknown Rx levETIRAcetam [Keppra TAB] 1,000 mg PO BID #60 tablet 03/07/19 Unknown Rx methOCARBAMOL [Robaxin TAB] 500 mg PO Q6H PRN #14 tablet 03/07/19 Unknown Rx Allergies Allergy/AdvReac Type Severity Reaction Status Date / Time acetaminophen [From Percocet] Allergy Itching Verified 04/21/18 08:28 lisinopril Allergy Swelling Verified 04/21/18 08:28 metoprolol Allergy Unknown Verified 04/21/18 08:28 oxycodone [From Percocet] Allergy Itching Verified 04/21/18 08:28 oxycodone HCl [From Percocet] AdvReac Unknown Verified 04/21/18 08:28 ED Review of Systems ROS: Stated complaint: SEIZURE Other details as noted in HPI Comment: Unobtainable due to pts medical conditions ED Past Medical Hx - Past Medical History Hx Hypertension: Yes Hx Congestive Heart Failure: No Hx Renal Disease: Yes (Tues, Thurs, Sat) Hx Arthritis: Yes Hx Headaches / Migraines: Yes Hx Seizures: Yes Hx Asthma: Yes Hx COPD: Yes Additional medical history: Lupus - Surgical History Past Surgical History?: Yes Additional Surgical History: RIGHT ARM graft - Social History Smoking Status: Current Every Day Smoker Substance Use Type: None - Medications Home Medications: Home Medications Medication Instructions Recorded Confirmed Last Taken Type Hydroxychloroquine [Plaquenil] 200 mg PO QDAY #30 tablet 07/24/18 03/19/19 Unknown Rx Clonidine HCl [Catapres] 0.3 mg PO TID 08/11/18 03/19/19 Unknown History hydrALAZINE [Apresoline TAB] 100 mg PO TID 08/11/18 03/19/19 Unknown History Dicyclomine [Bentyl] 10 mg PO QID PRN #20 capsule 09/10/18 03/19/19 Unknown Rx Metoclopramide HCl [Reglan TAB] 5 mg PO TIDAC PRN #20 tablet 12/15/18 03/19/19 Unknown Rx levETIRAcetam [Keppra TAB] 1,000 mg PO BID #60 tablet 01/16/19 03/19/19 Unknown Rx Albuterol Sulfate [Proair 2 puff IH Q4H PRN #1 pump 02/17/19 03/19/19 Unknown Rx Respiclick] HYDROcodone/APAP 10-325 [[place] 1 each PO Q4H PRN #14 tablet 02/17/19 03/19/19 Unknown Rx 10-325 mg TAB] Hydroxychloroquine [Plaquenil] 200 mg PO QDAY tablet 02/17/19 03/19/19 Unknown Rx Labetalol [Labetalol 200mg TAB] 200 mg PO TID #60 tablet 02/17/19 03/19/19 Unknown Rx Sertraline [Zoloft] 25 mg PO QDAY tablet 02/17/19 03/19/19 Unknown Rx methOCARBAMOL [Robaxin TAB] 750 mg PO Q6HR PRN #60 tablet 02/17/19 03/19/19 Unknown Rx HYDROcodone/APAP 5-325 [[place] 1 each PO Q6HR PRN #14 tablet 03/07/19 03/19/19 Unknown Rx 5/325] Phenytoin [Dilantin] 100 mg PO TID #90 capsule.er 03/07/19 03/19/19 Unknown Rx levETIRAcetam [Keppra TAB] 1,000 mg PO BID #60 tablet 03/07/19 03/19/19 Unknown Rx methOCARBAMOL [Robaxin TAB] 500 mg PO Q6H PRN #14 tablet 03/07/19 03/19/19 Unknown Rx ED Physical Exam - General Limitations: Physical Limitation, Other (poor cooperation and writhing) General appearance: other (agitated) - Head Head exam: Present: atraumatic, normocephalic - Eye Eye exam: Present: normal appearance. Absent: scleral icterus - ENT ENT exam: Present: mucous membranes moist - Neck Neck exam: Present: normal inspection. Absent: tenderness, meningismus - Respiratory Respiratory exam: Present: normal lung sounds bilaterally. Absent: respiratory distress - Cardiovascular Cardiovascular Exam: Present: regular rate, normal rhythm. Absent: systolic murmur, diastolic murmur, rubs, gallop - GI/Abdominal GI/Abdominal exam: Present: soft, tenderness, guarding (voluntary), normal bowel sounds - Extremities Exam Extremities exam: Present: normal inspection. Absent: calf tenderness - Back Exam Back exam: Present: normal inspection - Neurological Exam Neurological exam: Present: altered, CN II-XII intact. Absent: motor sensory deficit - Psychiatric Psychiatric exam: Present: agitated, anxious - Skin Skin exam: Present: warm, dry, intact, normal color. Absent: rash ED Course Vital Signs 04/16/19 04/16/19 08:00 08:59 Temperature 98.3 F Pulse Rate 99 H 98 H Respiratory 18 18 Rate Blood Pressure 175/112 Blood Pressure 189/119 [Left] O2 Sat by Pulse 99 100 Oximetry - Reevaluation(s) Reevaluation #1: It appears the patient has an acute encephalopathy. It is uncertain if this is due to a recent seizure. I was certainly entertained the possibility of a withdrawal state or substance abuse. In any case patient was given Keppra. A CT of her head and abdomen was ordered as she acted as though she had abdominal tenderness. She was found to have a mildly elevated lactic acid level. This is consistent with a recent seizure. I do not think she is septic. We will continue her workup. CT of her head and abdomen are yet pending. She was accepted by the hospitalist service for further care and evaluation. 04/16/19 10:32 Reevaluation #2: Patient did have another seizure while Keppra was being administered. She will be further monitored. I'll change her admission to telemetry. 04/16/19 10:39 Reevaluation #3: Vital signs stable. Postictal. Will be admitted to telemetry. 04/16/19 11:11 ED Medical Decision Making - Lab Data Result diagrams: 04/16/19 08:35 04/16/19 08:35 Laboratory Results - last 24 hr 04/16/19 04/16/19 04/16/19 08:35 08:35 08:35 WBC 3.7 L RBC 4.15 Hgb 12.9 Hct 39.3 MCV 95 MCH 31 MCHC 33 RDW 16.2 H Plt Count 161 Lymph % (Auto) 11.2 L [place] % (Auto) 9.8 H Eos % (Auto) 2.1 Baso % (Auto) 0.4 Lymph # 0.4 L [place] # 0.4 Eos # 0.1 Baso # 0.0 Seg Neutrophils % 76.5 H Seg Neutrophils # 2.8 PT 14.3 INR 1.14 H APTT 32.0 Sodium 135 L Potassium 4.2 Chloride 96.4 L Carbon Dioxide 23 Anion Gap 20 BUN 25 H Creatinine 7.1 H Estimated GFR 8 BUN/Creatinine Ratio 4 Glucose 76 Lactic Acid Calcium 9.0 Phosphorus Magnesium Total Bilirubin AST Alkaline Phosphatase Total Creatine Kinase CK-MB (CK-2) CK-MB (CK-2) Rel Index Troponin T NT-Pro-B Natriuret Pep Total Protein Albumin Albumin/Globulin Ratio [facility], [facility] Blood Type 04/16/19 04/16/19 04/16/19 08:35 08:35 08:35 WBC RBC Hgb Hct MCV MCH MCHC RDW Plt Count Lymph % (Auto) [place] % (Auto) Eos % (Auto) Baso % (Auto) Lymph # [place] # Eos # Baso # Seg Neutrophils % Seg Neutrophils # PT INR APTT Sodium Potassium Chloride Carbon Dioxide Anion Gap BUN Creatinine Estimated GFR BUN/Creatinine Ratio Glucose Lactic Acid 2.60 H* Calcium Phosphorus 3.60 Magnesium 2.50 H Total Bilirubin 0.20 AST 13 Alkaline Phosphatase 172 H Total Creatine Kinase 77 CK-MB (CK-2) 1.8 CK-MB (CK-2) Rel Index 2.3 Troponin T 0.045 H NT-Pro-B Natriuret Pep 95464 H Total Protein 7.6 Albumin 3.8 L Albumin/Globulin Ratio 1.0 [facility], [facility] Blood Type 04/16/19 04/16/19 08:35 08:36 WBC RBC Hgb Hct MCV MCH MCHC RDW Plt Count Lymph % (Auto) [place] % (Auto) Eos % (Auto) Baso % (Auto) Lymph # [place] # Eos # Baso # Seg Neutrophils % Seg Neutrophils # PT INR APTT Sodium Potassium Chloride Carbon Dioxide Anion Gap BUN Creatinine Estimated GFR BUN/Creatinine Ratio Glucose Lactic Acid Calcium Phosphorus Magnesium Total Bilirubin AST Alkaline Phosphatase Total Creatine Kinase CK-MB (CK-2) CK-MB (CK-2) Rel Index Troponin T NT-Pro-B Natriuret Pep Total Protein Albumin Albumin/Globulin Ratio HCG, Qual Negative Blood Type O POSITIVE - EKG Data -: EKG Interpreted by Me EKG shows normal: sinus rhythm, axis, intervals, QRS complexes, ST-T waves Rate: normal - EKG Data Interpretation: other (no acute findings) - Radiology Data Radiology results: report reviewed (CT the head no acute findings CT of the abdomen no acute findings with gallstones present. Pleural effusion. Ca rdiomegaly.) Critical Care Time: Yes Critical care time in (mins) excluding proc time.: 60 Critical care attestation.: If time is entered above; I have spent that time in minutes in the direct care of this critically ill patient, excluding procedure time. ED Disposition Clinical Impression: Recurrent seizures, Acute encephalopathy, End stage renal disease on dialysis, Gallstones Disposition: OP ADMIT IP TO THIS HOSP Is pt being admited?: Yes Does the pt Need Aspirin: Yes Condition: Stable Time of Disposition: 10:53
[2019-04-16 10:18] LABS: Alanine Aminotransferase < 5 units/L (7-56); Bilirubin,Direct < 0.2 mg/dL (0-0.2)
--- NOTE | 2019-04-16 10:43 | Cat Scan Report ---
CT HEAD WITHOUT CONTRAST INDICATION : Seizure. Altered mental status TECHNIQUE: Axial imaging performed from the skull apex through the skull base without the use of con trast. Sagittal and coronal reformatted images. All CT scans at this location are performed using C T dose reduction for ALARA by means of automated exposure control. COMPARISON: None FINDINGS: Parenchyma: No acute intracranial hemorrhage or parenchymal abnormality. Ventricles: Ventricles are normal in size and appear symmetric. Bones: No acute osseous abnormality. Sinuses: Sinuses and mastoid air cells are clear. Soft tissues: Soft tissues including the orbits appear normal. IMPRESSION: No acute abnormality. CT ABDOMEN AND PELVIS WITHOUT CONTRAST HISTORY: Abdominal pain, back pain COMPARISON: 12/14/2018 TECHNIQUE: Axial CT images were obtained through the abdomen and pelvis without IV contrast. Sagittal and coronal reformatted images. All CT scans at this location are performed using CT dose reduction for ALARA by means of automated exposure control. FINDINGS: CT ABDOMEN: Lung Bases: Mild cardiomegaly and trace left pleural effusion. The visualized lung bases are adequate ly aerated. Liver: No significant abnormality. Biliary: A 6 mm gallstone is noted in the fundus of the gallbladder. No biliary dilatation or inflamm ation. Spleen: No significant abnormality. Unenlarged. Pancreas: No significant abnormality. Adrenals: No significant abnormality. Kidneys: Both kidneys are atrophic measuring 7-8 cm in length. No focal renal lesion or hydronephrosi s. The ureters are normal course and caliber. Lymphatics: No lymphadenopathy. Vasculature: No significant abnormality. Bowel/Peritoneum: No significant abnormality. No free air. There is a small free pelvic fluid. The ap pendix is not confidently identified. CT PELVIS: : No significant abnormality. Osseous Structures: No significant abnormality. Additional Findings: None IMPRESSION: No acute process is identified in the abdomen or pelvis. Gallstone. Chronic renal parenchymal disease. Mild cardiomegaly and trace left pleural effusion. Signer Name: Khoi Yu Jr, MD Signed: 04/16/2019 10:39 AM Workstation Name: [id number]
--- NOTE | 2019-04-16 11:17 | XRay Report ---
CHEST 1 VIEW 04/16/2019 10:08 AM INDICATION / CLINICAL INFORMATION: hypertension. COMPARISON: 02/13/19 FINDINGS: SUPPORT DEVICES: None. HEART / MEDIASTINUM: Heart is mildly enlarged but stable. LUNGS / PLEURA: Linear scarring at the left lung base is unchanged. No pneumothorax. ADDITIONAL FINDINGS: No significant additional findings. IMPRESSION: 1. Mild cardiomegaly but no acute pulmonary or pleural findings. No change. Signer Name: Hellen Garza MD Signed: 04/16/2019 11:13 AM Workstation Name: [id number]
[2019-04-16] MEDS ORDERED: ASPIRIN PR SCH (12:00)
[2019-04-16] MEDS ORDERED: ROBAXIN PO PRN (12:02)
[2019-04-16] MEDS ORDERED: NON-FORMULARY (Metoclopramide Hcl [Reglan Tab] 5 MG) PO PRN (12:02)
--- NOTE | 2019-04-16 12:02 | History and Physical Report ---
History of Present Illness Date of examination: 04/16/19 Date of admission: 04/16/19 10:08 Chief complaint: Breakthrough seizure History of present illness: 29-year-old female with h/o ESRD, substance abuse, HTN, SLE/sarciodosis presented to ER after reported to have had 2 brief seizures at home. She has been this facility several times for seizures with history of noncompliance with her meds. She admits that she was not taking keppra and smoking marijuana and "some pain pills". She complains of pain all over and stated that she was "awake" during the seizures. She states that she was dialyzed yesterday. She has one episode of vomiting in the ER. Her CT head and CXR unremarkable. She is getting admitted for further evaluation and Mx. Past History Past Medical History: arthritis, ESRD, hypertension, sarcoidosis, other (Cocaine Dependence, SLE, ) Past Surgical History: Other (Dialysis Access) Social history: single, smoking Family history: hypertension Review of System: Constitutional: no fever, no chills, no weight loss, + generalized body ache Ears, eyes, nose, mouth and throat: no nasal congestion, no nasal discharge, no sinus pressure, no vision change, no red eye. Neck: No neck pain or rigidity. Cardiovascular: No chest pain, no orthopnea, no palpitations, no leg swelling Respiratory: No shortness of breath, no cough, no congestion, no wheezing Gastrointestinal: no abdominal pain, no nausea, no vomiting Genitourinary : no dysuria, no hematuria Musculoskeletal: no joint swelling or muscle ache Integumentary: no rash, no pruritis Neurological: no parathesias, no numbness, no tingling Endocrine: no cold or heat intolerance, no polyuria or polydipsia Hematologic/Lymphatic: no easy bruising, no easy bleeding, no gland swelling Allergic/Immunologic: no urticaria, no angioedema. Medications and Allergies Allergies Allergy/AdvReac Type Severity Reaction Status Date / Time acetaminophen [From Percocet] Allergy Itching Verified 04/21/18 08:28 lisinopril Allergy Swelling Verified 04/21/18 08:28 metoprolol Allergy Unknown Verified 04/21/18 08:28 oxycodone [From Percocet] Allergy Itching Verified 04/21/18 08:28 oxycodone HCl [From Percocet] AdvReac Unknown Verified 04/21/18 08:28 Home Medications Medication Instructions Recorded Confirmed Last Taken Type Hydroxychloroquine [Plaquenil] 200 mg PO QDAY #30 tablet 07/24/18 03/19/19 Unknown Rx Clonidine HCl [Catapres] 0.3 mg PO TID 08/11/18 03/19/19 Unknown History hydrALAZINE [Apresoline TAB] 100 mg PO TID 08/11/18 03/19/19 Unknown History Dicyclomine [Bentyl] 10 mg PO QID PRN #20 capsule 09/10/18 03/19/19 Unknown Rx Metoclopramide HCl [Reglan TAB] 5 mg PO TIDAC PRN #20 tablet 12/15/18 03/19/19 Unknown Rx levETIRAcetam [Keppra TAB] 1,000 mg PO BID #60 tablet 01/16/19 03/19/19 Unknown Rx Albuterol Sulfate [Proair 2 puff IH Q4H PRN #1 pump 02/17/19 03/19/19 Unknown Rx Respiclick] HYDROcodone/APAP 10-325 [[place] 1 each PO Q4H PRN #14 tablet 02/17/19 03/19/19 Unknown Rx 10-325 mg TAB] Hydroxychloroquine [Plaquenil] 200 mg PO QDAY tablet 02/17/19 03/19/19 Unknown Rx Labetalol [Labetalol 200mg TAB] 200 mg PO TID #60 tablet 02/17/19 03/19/19 Unknown Rx Sertraline [Zoloft] 25 mg PO QDAY tablet 02/17/19 03/19/19 Unknown Rx methOCARBAMOL [Robaxin TAB] 750 mg PO Q6HR PRN #60 tablet 02/17/19 03/19/19 Unknown Rx HYDROcodone/APAP 5-325 [[place] 1 each PO Q6HR PRN #14 tablet 03/07/19 03/19/19 Unknown Rx 5/325] Phenytoin [Dilantin] 100 mg PO TID #90 capsule.er 03/07/19 03/19/19 Unknown Rx levETIRAcetam [Keppra TAB] 1,000 mg PO BID #60 tablet 03/07/19 03/19/19 Unknown Rx methOCARBAMOL [Robaxin TAB] 500 mg PO Q6H PRN #14 tablet 03/07/19 03/19/19 Unknown Rx Active Meds: Active Medications Aspirin (Aspirin) 300 mg MO ONCE [facility] Stop: 04/17/19 11:59 Exam - Physical Exam Narrative exam: GENERAL: well-developed -Citizen Of [place] female lying on bed appeared to be in no discomfort. HEENT: Normocephalic. Atraumatic. No conjunctival congestion or icterus. Patient has moist mucous membranes. NECK: Supple. Trachea midline. CHEST/LUNGS: Clear to auscultated bilaterally, breathing nonlabored. No wheezes crackles or rhonchi. HEART/CARDIOVASCULAR: Regular in rate and rhythm. S1 and S2 positive. ABDOMEN: Abdomen is soft, nontender. Patient has normal bowel sounds. SKIN: There is no rash. Warm and dry. NEURO: No focal motor deficit. Follows command. MUSCULOSKELETAL: No joint effusion or tenderness. EXTRIMITY: No edema, no cyanosis or clubbing. PSYCH: Cooperative. - Constitutional Vitals: Temp Pulse Resp BP Pulse Ox 98.3 F 113 H 20 134/87 98 04/16/19 08:00 04/16/19 11:32 04/16/19 11:32 04/16/19 11:32 04/16/19 11:32 Results - Labs CBC & Chem 7: 04/16/19 08:35 04/16/19 08:35 Labs: Abnormal lab results 04/16/19 04/16/19 04/16/19 Range/Units 08:35 08:35 08:35 WBC 3.7 L (4.5-11.0) K/mm3 RDW 16.2 H (13.2-15.2) % Lymph % (Auto) 11.2 L (13.4-35.0) % [place] % (Auto) 9.8 H (0.0-7.3) % Lymph # 0.4 L (1.2-5.4) K/mm3 Seg Neutrophils % 76.5 H (40.0-70.0) % INR 1.14 H (0.87-1.13) Sodium 135 L (137-145) mmol/L Chloride 96.4 L (98-107) mmol/L BUN 25 H (7-17) mg/dL Creatinine 7.1 H (0.7-1.2) mg/dL Lactic Acid (0.7-2.0) mmol/L Magnesium (1.7-2.3) mg/dL ALT (7-56) units/L Alkaline Phosphatase (35-129) units/L Troponin T (0.00-0.029) ng/mL NT-Pro-B Natriuret Pep (0-450) pg/mL Albumin (3.9-5) g/dL 04/16/19 04/16/19 Range/Units 08:35 08:35 WBC (4.5-11.0) K/mm3 RDW (13.2-15.2) % Lymph % (Auto) (13.4-35.0) % [place] % (Auto) (0.0-7.3) % Lymph # (1.2-5.4) K/mm3 Seg Neutrophils % (40.0-70.0) % INR (0.87-1.13) Sodium (137-145) mmol/L Chloride (98-107) mmol/L BUN (7-17) mg/dL Creatinine (0.7-1.2) mg/dL Lactic Acid 2.60 H* (0.7-2.0) mmol/L Magnesium 2.50 H (1.7-2.3) mg/dL ALT < 5 L (7-56) units/L Alkaline Phosphatase 172 H (35-129) units/L Troponin T 0.045 H (0.00-0.029) ng/mL NT-Pro-B Natriuret Pep 38527 H (0-450) pg/mL Albumin 3.8 L (3.9-5) g/dL - Imaging and Cardiology Chest x-ray: report reviewed CT Scan - head: report reviewed Assessment and Plan / Break though Seizure likely from noncompliance, REsume keppra, dilantin therapy, ativan as needed Pt counseled regarding medication noncompliance. CT hands without any acute changes, will also have neurology evaluation Order EEG / Seizure disorder REsume keppra, dilantin therapy, Pt counseled regarding medication noncompliance. /Nicotine dependence unspecified, with withdrawal Smoking cessation counseling, supportive care. Nicotine patch if needed / ESRD (end stage renal disease) Nephrology consulted for dialysis, monitor uop q shift, renal diet, strict I/O, daily weight, avoid nephrotoxic agents. Plan for a study tomorrow /Substance abuse - mostly cocaine Ordered Urine Drug Screen, supportive care, monitor for Si/sx of withdrawal / Hypertensive urgency Resume prehospital medication, montor BP q shift, IV hydralazine prn /DVT prophylaxis SCD to BLE while in bed, Prophylactic heparin
[2019-04-16] MEDS ORDERED: ATIVAN IV PRN (12:05)
[2019-04-16] MEDS ORDERED: REGLAN PO PRN (12:22)
[2019-04-16] MEDS: NORMODYNE PO SCH ×2 (13:23→21:10)
[2019-04-16] MEDS: DILANTIN PO SCH ×2 (13:23→21:10)
[2019-04-16] MEDS: APRESOLINE PO SCH ×2 (13:23→21:10)
[2019-04-16] MEDS ORDERED: NON-FORMULARY (Clonidine Hcl [Catapres] 0.3 MG) PO SCH (14:00)
[2019-04-16] MEDS ORDERED: CATAPRES PO SCH (14:00)
[2019-04-16] MEDS ORDERED: ATIVAN PO PRN (16:27)
[2019-04-16] MEDS ORDERED: ULTRAM PO PRN (16:30)
[2019-04-16] MEDS ORDERED: BENADRYL PO PRN (16:53)
--- NOTE | 2019-04-16 19:26 | Consultation ---
History of Present Illness - History of Present Illness Thank you for the consultation ! Patient was evaluated today, around 11:30 AM My assessment and plan are as follows; End-stage renal disease: Patient is currently on hemodialysis, and will need to continue with hemodialysis on Friday and Friday , schedule. Anemia and end-stage renal disease: Monitor hemoglobin and hematocrit erythropoietin as needed. Workup as required Secondary hyperparathyroidism: Check phosphorus and PTH level periodically, binders as needed Dialysis access: Currently working well, no immediate issues Seizure disorder currently being followed by primary team Malnutrition risk: High consider high-protein diet dietitian evaluation and foll ow-up in general 1.5 g protein per KG body weight Fluid restriction: 1200 cc per day not to exceed more than that Adequately counseled and educated about other hospital related issues as well Labs were discussed with patient and simple Burkinan Patient does appear to have good understanding of all the dialysis related issues Patient was adequately counseled and educated regarding multiple renal related issues. overall prognosis remains guarded at this time All renal related questions were answered and simple [place]kinan pertinent lab studies as well as imaging results were also discussed with patient We will continue to follow and make recommendations from renal standpoint. Thank you for the consultation Author: Ronni Freedman M.D. [facility], [address] [place] [address] Tel; [phone] Source of information: From patient History of present illness Patient is a 29-year-old -[place] female who has been admitted here with another episode of seizure, patient has had similar episodes in the past, patient is currently dialysis dependent and dialyzes on Friday schedule,She denies having any issues with shortness of breath chest pain pressure or nausea vomiting Patient states that she was running low on her seizure medication She is also very very poor historian Events of this hospitalization were noted Old records were also reviewed Past medical history: ESRD Hypertension Lupus Secondary hyperparathyroidism Noncompliance Current allergies: Reviewed from the current chart Social history: Reviewed from the current chart Family history: Reviewed from the current chart Review of system: Positive for Seizure disorder All other review of systems negative Physical examination Vitals: Reviewed General: No acute distress HEENT: Oral mucosa moist no pallor or icterus Neck: Supple without any JVD thyromegaly or nodular mass Chest: Clear to auscultation Heart: Regular rate and rhythm S1-S2 heard no S3-S4 Abdomen: Soft nontender, bowel sounds present no renal bruit no suprapubic masses no CVA tenderness noted Extremity: Minimal edema dry skin no peripheral cyanosis Endocrine: Thyroid not enlarged Psychiatric: No agitation and aggression noted Musculoskeletal: No joint effusion noted Labs and x-rays: Reviewed from this admission Medications and Allergies Allergies Allergy/AdvReac Type Severity Reaction Status Date / Time acetaminophen [From Percocet] Allergy Itching Verified 04/21/18 08:28 lisinopril Allergy Swelling Verified 04/21/18 08:28 metoprolol Allergy Unknown Verified 04/21/18 08:28 oxycodone [From Percocet] Allergy Itching Verified 04/21/18 08:28 oxycodone HCl [From Percocet] AdvReac Unknown Verified 04/21/18 08:28 Home Medications Medication Instructions Recorded Confirmed Last Taken Type Hydroxychloroquine [Plaquenil] 200 mg PO QDAY #30 tablet 07/24/18 03/19/19 Unknown Rx Clonidine HCl [Catapres] 0.3 mg PO TID 08/11/18 03/19/19 Unknown History hydrALAZINE [Apresoline TAB] 100 mg PO TID 08/11/18 03/19/19 Unknown History Dicyclomine [Bentyl] 10 mg PO QID PRN #20 capsule 09/10/18 03/19/19 Unknown Rx Metoclopramide HCl [Reglan TAB] 5 mg PO TIDAC PRN #20 tablet 12/15/18 03/19/19 Unknown Rx levETIRAcetam [Keppra TAB] 1,000 mg PO BID #60 tablet 01/16/19 03/19/19 Unknown Rx Albuterol Sulfate [Proair 2 puff IH Q4H PRN #1 pump 02/17/19 03/19/19 Unknown Rx Respiclick] HYDROcodone/APAP 10-325 [[place] 1 each PO Q4H PRN #14 tablet 02/17/19 03/19/19 Unknown Rx 10-325 mg TAB] Hydroxychloroquine [Plaquenil] 200 mg PO QDAY tablet 02/17/19 03/19/19 Unknown Rx Labetalol [Labetalol 200mg TAB] 200 mg PO TID #60 tablet 02/17/19 03/19/19 Unknown Rx Sertraline [Zoloft] 25 mg PO QDAY tablet 02/17/19 03/19/19 Unknown Rx methOCARBAMOL [Robaxin TAB] 750 mg PO Q6HR PRN #60 tablet 02/17/19 03/19/19 Unknown Rx HYDROcodone/APAP 5-325 [[place] 1 each PO Q6HR PRN #14 tablet 03/07/19 03/19/19 Unknown Rx 5/325] Phenytoin [Dilantin] 100 mg PO TID #90 capsule.er 03/07/19 03/19/19 Unknown Rx levETIRAcetam [Keppra TAB] 1,000 mg PO BID #60 tablet 03/07/19 03/19/19 Unknown Rx methOCARBAMOL [Robaxin TAB] 500 mg PO Q6H PRN #14 tablet 03/07/19 03/19/19 Unknown Rx Active Meds: Active Medications Aspirin (Aspirin) [address] ONCE [facility] Stop: 04/17/19 11:59 Diphenhydramine HCl (Benadryl) 25 mg PO Q6H PRN PRN Reason: Itching Last Admin: 04/16/19 17:57 Dose: 25 mg Documented by: Heparin Sodium (Porcine) (Heparin) 5,000 unit SUB-Q Q12HR [facility] Hydralazine HCl (Apresoline) 100 mg PO TID [facility] Last Admin: 04/16/19 13:23 Dose: 100 mg Documented by: Hydroxychloroquine Sulfate (Plaquenil) 200 mg PO QDAY [facility] Labetalol HCl (Normodyne) 200 mg PO TID [facility] Last Admin: 04/16/19 13:23 Dose: 200 mg Documented by: Levetiracetam (Keppra) 1,000 mg PO BID [facility] Lorazepam (Ativan) 2 mg IV Q4H PRN PRN Reason: Seizures Lorazepam (Ativan) 0.5 mg PO Q6H PRN PRN Reason: Agitation Methocarbamol (Robaxin) 750 mg PO Q6HR PRN PRN Reason: Spasms Metoclopramide HCl (Reglan) 5 mg PO TIDAC PRN PRN Reason: Nausea And Vomiting Phenytoin (Dilantin) 100 mg PO TID [facility] Last Admin: 04/16/19 13:23 Dose: 100 mg Documented by: Sertraline HCl (Zoloft) 25 mg PO QDAY [facility] Tramadol HCl (Ultram) 50 mg PO Q6H PRN PRN Reason: Pain , Severe (7-10) Last Admin: 04/16/19 17:58 Dose: 50 mg Documented by: Exam - Vital Signs Vital signs: Vital Signs Temp Pulse Resp BP Pulse Ox 98.3 F 99 H 18 175/112 99 04/16/19 08:00 04/16/19 08:00 04/16/19 08:00 04/16/19 08:00 04/16/19 08:00 Results - Lab Results 04/16/19 08:35 04/16/19 08:35 Most recent lab results Calcium 9.0 mg/dL (8.4-10.2) 04/16/19 08:35 Phosphorus 3.60 mg/dL (2.5-4.5) 04/16/19 08:35 Magnesium 2.50 mg/dL (1.7-2.3) H 04/16/19 08:35
[2019-04-16] MEDS ORDERED: NACL 0.9% 100 ML IV PRN (19:33)
[2019-04-16] MEDS: KEPPRA PO SCH (21:11)
[2019-04-16] MEDS: HEPARIN SUB-Q SCH (21:11)
--- NOTE | 2019-04-17 | Consultation ---
History of Present Illness Consult date: 04/16/19 Reason for Consult: Seizure Chief complaint: Seizure History of present illness: Patient is a 29 y/o woman w/ a h/o seizures, ESRD on HD, HTN, h/o cocaine and opioid abuse, depression, anxiety. Patient reportedly had 2 seizures while at home, which were witnessed by her father. Patient was then brought to [facility]. She did not have any seizures after coming to [facility], however was reportedly agitated. Patient states that she has not taken any keppra for the past month, due to lack of availability of this medication. She also states that she is not consistently compliant with dilantin. Past History Past Medical History: other (h/o seizures, ESRD on HD, HTN, h/o cocaine and opi oid abuse, depression, anxiety) Social history: smoking, prescription drug abuse, other (cocaine abuse) Family history: no significant family history Medications and Allergies Allergies Allergy/AdvReac Type Severity Reaction Status Date / Time acetaminophen [From Percocet] Allergy Itching Verified 04/21/18 08:28 lisinopril Allergy Swelling Verified 04/21/18 08:28 metoprolol Allergy Unknown Verified 04/21/18 08:28 oxycodone [From Percocet] Allergy Itching Verified 04/21/18 08:28 oxycodone HCl [From Percocet] AdvReac Unknown Verified 04/21/18 08:28 Home Medications Medication Instructions Recorded Confirmed Last Taken Type Hydroxychloroquine [Plaquenil] 200 mg PO QDAY #30 tablet 07/24/18 03/19/19 Unknown Rx Clonidine HCl [Catapres] 0.3 mg PO TID 08/11/18 03/19/19 Unknown History hydrALAZINE [Apresoline TAB] 100 mg PO TID 08/11/18 03/19/19 Unknown History Dicyclomine [Bentyl] 10 mg PO QID PRN #20 capsule 09/10/18 03/19/19 Unknown Rx Metoclopramide HCl [Reglan TAB] 5 mg PO TIDAC PRN #20 tablet 12/15/18 03/19/19 Unknown Rx levETIRAcetam [Keppra TAB] 1,000 mg PO BID #60 tablet 01/16/19 03/19/19 Unknown Rx Albuterol Sulfate [Proair 2 puff IH Q4H PRN #1 pump 02/17/19 03/19/19 Unknown Rx Respiclick] HYDROcodone/APAP 10-325 [[place] 1 each PO Q4H PRN #14 tablet 02/17/19 03/19/19 Unknown Rx 10-325 mg TAB] Hydroxychloroquine [Plaquenil] 200 mg PO QDAY tablet 02/17/19 03/19/19 Unknown Rx Labetalol [Labetalol 200mg TAB] 200 mg PO TID #60 tablet 02/17/19 03/19/19 Unknown Rx Sertraline [Zoloft] 25 mg PO QDAY tablet 02/17/19 03/19/19 Unknown Rx methOCARBAMOL [Robaxin TAB] 750 mg PO Q6HR PRN #60 tablet 02/17/19 03/19/19 Unknown Rx HYDROcodone/APAP 5-325 [[place] 1 each PO Q6HR PRN #14 tablet 03/07/19 03/19/19 Unknown Rx 5/325] Phenytoin [Dilantin] 100 mg PO TID #90 capsule.er 03/07/19 03/19/19 Unknown Rx levETIRAcetam [Keppra TAB] 1,000 mg PO BID #60 tablet 03/07/19 03/19/19 Unknown Rx methOCARBAMOL [Robaxin TAB] 500 mg PO Q6H PRN #14 tablet 03/07/19 03/19/19 Unknown Rx Active Meds: Active Medications Aspirin (Aspirin) 300 mg DE ONCE [facility] Stop: 04/17/19 11:59 Diphenhydramine HCl (Benadryl) 25 mg PO Q6H PRN PRN Reason: Itching Last Admin: 04/16/19 17:57 Dose: 25 mg Documented by: Heparin Sodium (Porcine) (Heparin) 5,000 unit SUB-Q Q12HR [facility] Last Admin: 04/16/19 21:11 Dose: 5,000 unit Documented by: Hydralazine HCl (Apresoline) 100 mg PO TID [facility] Last Admin: 04/16/19 21:10 Dose: 100 mg Documented by: Hydroxychloroquine Sulfate (Plaquenil) 200 mg PO QDAY [facility] Sodium Chloride (Nacl 0.9%) 100 mls @ 999 mls/hr IV ALYSSA PRN PRN Reason: Hypotension Labetalol HCl (Normodyne) 200 mg PO TID [facility] Last Admin: 04/16/19 21:10 Dose: 200 mg Documented by: Levetiracetam (Keppra) 1,000 mg PO BID [facility] Last Admin: 04/16/19 21:11 Dose: 1,000 mg Documented by: Lorazepam (Ativan) 2 mg IV Q4H PRN PRN Reason: Seizures Lorazepam (Ativan) 0.5 mg PO Q6H PRN PRN Reason: Agitation Methocarbamol (Robaxin) 750 mg PO Q6HR PRN PRN Reason: Spasms Metoclopramide HCl (Reglan) 5 mg PO TIDAC PRN PRN Reason: Nausea And Vomiting Phenytoin (Dilantin) 100 mg PO TID [facility] Last Admin: 04/16/19 21:10 Dose: 100 mg Documented by: Sertraline HCl (Zoloft) 25 mg PO QDAY [facility] Tramadol HCl (Ultram) 50 mg PO Q6H PRN PRN Reason: Pain , Severe (7-10) Last Admin: 04/16/19 17:58 Dose: 50 mg Documented by: Review of Systems All systems: negative Neurological: seizures Physical Examination - Vital Signs Vital Signs: Vital Signs Temp Pulse Resp BP Pulse Ox 98.3 F 99 H 18 175/112 99 04/16/19 08:00 04/16/19 08:00 04/16/19 08:00 04/16/19 08:00 04/16/19 08:00 - Physical Exam Narrative exam: Gen: no distress, cooperative Neck: no JVD, masses, or bruits HEENT: atraumatic, sclera anicteric CV RRR Lung symmetric chest expansion Abd: soft, non-tender, non-distended Ext: no edema Neurological Examination: Mental status: Alert, oriented x 3, appropriate in conversation to recent and remote events Language: Fluent, comprehension, repetition and naming intact CN: VF full, pupils ERR, EOMi, V1-3 equal to light touch No droop, no dysarthria Uvula are midline Tongue midline Motor system: Muscle tone and appearance are normal Strength: RUE: proximal: 5/5, distal: 5/5 LUE: proximal: 5/5, distal: 5/5 RLE: proximal: 5/5, distal: 5/5 LLE: proximal: 5/5, distal: 5/5 Reflexes: 2+ in biceps/brachioradialis/triceps/patellar/ankle Sensory: Grossly symmetric Coord: No tremor, FTN, HTS intact Gait: deferred Results - Laboratory Findings CBC and BMP: 04/16/19 08:35 04/16/19 08:35 Abnormal Lab Findings: Abnormal Labs 04/16/19 04/16/19 04/16/19 08:35 08:35 08:35 WBC 3.7 L RDW 16.2 H Lymph % (Auto) 11.2 L [place] % (Auto) 9.8 H Lymph # 0.4 L Seg Neutrophils % 76.5 H INR 1.14 H Sodium 135 L Chloride 96.4 L BUN 25 H Creatinine 7.1 H Lactic Acid Magnesium ALT Alkaline Phosphatase Troponin T NT-Pro-B Natriuret Pep Albumin Phenytoin 04/16/19 04/16/19 04/16/19 08:35 08:35 15:58 WBC RDW Lymph % (Auto) [place] % (Auto) Lymph # Seg Neutrophils % INR Sodium Chloride BUN Creatinine Lactic Acid 2.60 H* Magnesium 2.50 H ALT < 5 L Alkaline Phosphatase 172 H Troponin T 0.045 H NT-Pro-B Natriuret Pep 31283 H Albumin 3.8 L Phenytoin 2.6 L Assessment and Plan Patient is a 29 y/o woman w/ a h/o seizures, ESRD on HD, HTN, h/o cocaine and opioid abuse, depression, anxiety, who p/w 2 seizures after not taking keppra for about one month. According to the patient's clinical findings, it is likely that she has had a seizure, and likely etiology of this is that the patient has not been compliant with seizure-medication Plan: 1. Seizure: - Patient now returned to baseline - EEG did not reveal any seizures or epileptiform activity. - Recommend changing keppra dose to renal-adjusted dose for hemodialysis, which is 500mg BID, as well as extra 500mg to be given after each hemodialysis. - Recommend slow flow dialysis, in order to avoid rapid changes in fluids or electrolytes, which may lower seizure threshold for this patient. - Discussed with patient importance of compliance with seizure medications - Patient is not to drive for 6 months, and until cleared by DMV/DPS. Patient acknowledges this. - Recommend seizure precautions. -Will sign off, as I am not covering the weekend. Please consult neurologist that is covering tomorrow, if it is felt that patient will require neurologic monitoring. Damian Hardin MD Neurology
[2019-04-17] MEDS: DILANTIN PO SCH ×2 (08:25→14:05)
[2019-04-17] MEDS: NORMODYNE PO SCH ×2 (08:25→14:09)
[2019-04-17] MEDS: APRESOLINE PO SCH ×2 (08:26→14:09)
[2019-04-17] MEDS ORDERED: PLAQUENIL PO SCH (10:00)
[2019-04-17] MEDS ORDERED: ZOLOFT PO SCH (10:00)
[2019-04-17] MEDS: KEPPRA PO SCH (10:02)
[2019-04-17] MEDS: HEPARIN SUB-Q SCH (10:02)
[2019-04-17] MEDS ORDERED: KEPPRA PO SCH (10:15)
[2019-04-17 10:32] LABS: Hepatitis B Surface Antigen Non-Reactive (Negative); Hepatitis C Virus Antibody Non-Reactive (NonReactive)
--- NOTE | 2019-04-17 10:35 | Electroencephalogram Report ---
Electroencephalogram EEG Date of exam: 04/16/19 Impression: HISTORY: Patient is a 29 y/o woman w/ a h/o seizures, ESRD on HD, HTN, h/o cocaine and opioid abuse, depression, anxiety, who p/w 2 seizures after not taking keppra for about one month. MEDICATIONS: Current medication list reviewed. DESCRIPTION OF THE PROCEDURE: Electrodes were applied using Paste technique in positions dictated by International 10-20 system of placement. In addition to EEG data EKG and eye movements were recorded DESCRIPTION OF ACTIVITY: At the onset of this recording, the patient is lying supine. In the background we note a 5 Hz theta activity. Additional low voltage beta activity occurs symmetrically at the anterior head regions bilaterally. There are no asymmetries in amplitude or frequency between hemispheres. Photic stimulation was not performed Hyperventilation was not performed. EEG Impression: 1) Generalized slowing. 2) No seizures noted during recording. CLINICAL INTERPRETATION: This routine EEG, performed is abnormal secondary to above findings and is consistent with bi-hemispheric dysfunction and encephalopathy. The above described finding of diffuse slowing is etiologically non-specific and similar findings have been reported in cases of toxic, metabolic, hypoxic ischemic, infectious, medication, sleep deprivation, dementia,post-ictal state, and other causes of diffuse and multifocal encephalopathy.
--- NOTE | 2019-04-17 11:08 | Progress Note ---
Objective - Vital Signs Vital signs: Vital Signs - 12hr 04/16/19 04/16/19 04/17/19 23:37 23:54 05:03 Temperature 98.7 F 98.5 F Pulse Rate 82 91 H Pulse Rate [ Apical] Pulse Rate [ From Monitor] Respiratory 18 18 Rate Blood Pressure 145/103 153/101 O2 Sat by Pulse 98 100 Oximetry 04/17/19 04/17/19 04/17/19 07:49 08:00 08:25 Temperature 98.7 F Pulse Rate 80 80 Pulse Rate [ 80 Apical] Pulse Rate [ 80 From Monitor] Respiratory 18 20 Rate Blood Pressure 159/105 159/105 O2 Sat by Pulse 97 97 Oximetry - Lab 04/16/19 08:35 04/16/19 08:35 Most recent lab results Calcium 9.0 mg/dL (8.4-10.2) 04/16/19 08:35 Phosphorus 3.60 mg/dL (2.5-4.5) 04/16/19 08:35 Magnesium 2.50 mg/dL (1.7-2.3) H 04/16/19 08:35 Medications & Allergies - Medications Allergies/Adverse Reactions: Allergies acetaminophen [From Percocet] Allergy (Verified 04/21/18 08:28) Itching lisinopril Allergy (Verified 04/21/18 08:28) Swelling metoprolol Allergy (Verified 04/21/18 08:28) Unknown oxycodone [From Percocet] Allergy (Verified 04/21/18 08:28) Itching oxycodone HCl [From Percocet] Adverse Reaction (Verified 04/21/18 08:28) Unknown Home Medications: Home Medications Medication Instructions Recorded Confirmed Last Taken Type Hydroxychloroquine [Plaquenil] 200 mg PO QDAY #30 tablet 07/24/18 03/19/19 Unknown Rx Clonidine HCl [Catapres] 0.3 mg PO TID 08/11/18 03/19/19 Unknown History hydrALAZINE [Apresoline TAB] 100 mg PO TID 08/11/18 03/19/19 Unknown History Dicyclomine [Bentyl] 10 mg PO QID PRN #20 capsule 09/10/18 03/19/19 Unknown Rx Metoclopramide HCl [Reglan TAB] 5 mg PO TIDAC PRN #20 tablet 12/15/18 03/19/19 Unknown Rx levETIRAcetam [Keppra TAB] 1,000 mg PO BID #60 tablet 01/16/19 03/19/19 Unknown Rx Albuterol Sulfate [Proair 2 puff IH Q4H PRN #1 pump 02/17/19 03/19/19 Unknown Rx Respiclick] HYDROcodone/APAP 10-325 [Hendrix 1 each PO Q4H PRN #14 tablet 02/17/19 03/19/19 Unknown Rx 10-325 mg TAB] Hydroxychloroquine [Plaquenil] 200 mg PO QDAY tablet 02/17/19 03/19/19 Unknown Rx Labetalol [Labetalol 200mg TAB] 200 mg PO TID #60 tablet 02/17/19 03/19/19 Unknown Rx Sertraline [Zoloft] 25 mg PO QDAY tablet 02/17/19 03/19/19 Unknown Rx methOCARBAMOL [Robaxin TAB] 750 mg PO Q6HR PRN #60 tablet 02/17/19 03/19/19 Unknown Rx HYDROcodone/APAP 5-325 [Hendrix 1 each PO Q6HR PRN #14 tablet 03/07/19 03/19/19 Unknown Rx 5/325] Phenytoin [Dilantin] 100 mg PO TID #90 capsule.er 03/07/19 03/19/19 Unknown Rx levETIRAcetam [Keppra TAB] 1,000 mg PO BID #60 tablet 03/07/19 03/19/19 Unknown Rx methOCARBAMOL [Robaxin TAB] 500 mg PO Q6H PRN #14 tablet 03/07/19 03/19/19 Unknown Rx Active Medications: Generic Name Dose Route Start Last Admin Trade Name Freq PRN Reason Stop Dose Admin Aspirin 300 mg 04/16/19 12:00 Aspirin [place] 04/17/19 11:59 ONCE FERNANDO Diphenhydramine HCl 25 mg 04/16/19 16:53 04/16/19 17:57 Benadryl PO 25 mg Q6H PRN Administration Itching Heparin Sodium (Porcine) 5,000 unit 04/16/19 22:00 04/17/19 10:02 Heparin SUB-Q Not Given Q12HR FERNANDO Hydralazine HCl 100 mg 04/16/19 14:00 04/17/19 08:26 Apresoline PO 100 mg TID FERNANDO Administration Hydroxychloroquine Sulfate 200 mg 04/17/19 10:00 04/17/19 10:02 Plaquenil PO 200 mg QDAY [facility] Administration Sodium Chloride 100 mls @ 999 mls/hr 04/16/19 19:33 Nacl 0.9% IV ALYSSA PRN Hypotension Labetalol HCl 200 mg 04/16/19 14:00 04/17/19 08:25 Normodyne PO 200 mg TID FERNANDO Administration Levetiracetam 500 mg 04/17/19 10:15 Keppra PO BID FERNANDO Lorazepam 2 mg 04/16/19 12:05 Ativan IV Q4H PRN Seizures Lorazepam 0.5 mg 04/16/19 16:27 Ativan PO Q6H PRN Agitation Methocarbamol 750 mg 04/16/19 12:02 Robaxin PO Q6HR PRN Spasms Metoclopramide HCl 5 mg 04/16/19 12:22 Reglan PO TIDAC PRN Nausea And Vomiting Phenytoin 100 mg 04/16/19 14:00 04/17/19 08:25 Dilantin PO 100 mg TID FERNANDO Administration Sertraline HCl 25 mg 04/17/19 10:00 04/17/19 10:02 Zoloft PO 25 mg QDAY [facility] Administration Tramadol HCl 50 mg 04/16/19 16:30 04/16/19 17:58 Ultram PO 50 mg Q6H PRN Administration Pain , Severe (7-10)
--- NOTE | 2019-04-17 12:01 | Discharge Summary ---
Providers - Providers Date of Admission: 04/16/19 10:08 Date of discharge: 04/17/19 Attending physician: ISMAEL MAN 04/16/19 12:01 Consult to Physician [CONS] Routine Comment: Consulting Provider: EFFIE MENJIVAR Physician Instructions: Reason For Exam: breakthrough seizure 04/16/19 12:07 Consult to Physician [CONS] Routine Comment: Consulting Provider: ULYSSES YO Physician Instructions: Reason For Exam: ESRD Primary care physician: ROCIO TOMAS Hospitalization Condition: Stable Pertinent studies: CXR CT head CT abdomen/pelvis EEG Hospital course: Discharge diagnosis and management: / Break though Seizure likely from noncompliance, REsumed keppra, dilantin therapy, given ativan as needed Pt counseled regarding medication noncompliance. CT hands without any acute changes, had neurology evaluation EEG showed no seizure activity, keppra adjusted for ESRD /Nausea and vomiting, resolved - CT abdomen/pelvis was normal /Nicotine dependence unspecified Smoking cessation counseled, / ESRD (end stage renal disease) Nephrology consulted for dialysis, s/p HD today /Substance abuse - mostly cocaine supportive care, monitored for Si/sx of withdrawal / Hypertensive urgency Resumed prehospital medication, montored BP q shift, also ordered IV hydralazine prn /H/o lupus, cont plaquenil /h/o depression, cont seroquel /DVT prophylaxis SCD to BLE while in bed, Prophylactic heparin Disposition: DC-01 TO HOME OR SELFCARE Time spent for discharge: 34 minutes Core Measure Documentation - Palliative Care Palliative Care/ Comfort Measures: Not Applicable - Core Measures Any of the following diagnoses?: none Exam - Constitutional Vitals: Temp Pulse Resp BP Pulse Ox 98.7 F 80 20 159/105 97 04/17/19 07:49 04/17/19 08:25 04/17/19 08:00 04/17/19 08:25 04/17/19 08:00 Plan Activity: advance as tolerated Weight Bearing Status: Weight Bear as Tolerated Diet: renal Special Instructions: record daily BP diary Additional Instructions: Please keep keppra 500mg twice a day, take extra 500mg after each HD. Follow up with: PRIMARY CARE, [Referring] - 3-5 Days Prescriptions: hydrALAZINE [Apresoline TAB] 100 mg PO TID #90 tab Clonidine HCl [Catapres] 0.3 mg PO TID #60 tablet Phenytoin [Dilantin] 100 mg PO TID #90 capsule.er levETIRAcetam [Keppra TAB] 500 mg PO BID #90 tablet Labetalol [Labetalol 200mg TAB] 200 mg PO TID #60 tablet Hydroxychloroquine [Plaquenil] 200 mg PO QDAY #30 tablet
[2019-04-17] MEDS ORDERED: NACL 0.9 (PRIMING MACHINE ONLY DIALYSIS) MC ONE (19:42)
[2019-04-17 20:27] VITALS: BP 140/90
== END 2019-04-17 21:45 | disposition home or self-care (01) | DRG 100 ==
LOC: ED 07:49 → 3A 10:08 → 4A 11:32
PROVIDERS: ADMIT Internal Medicine; ATTEND Internal Medicine
PROC: 5A1D70Z Performance of Urinary Filtration, Intermittent, Less than 6 Hours Per Day (ICD-10-PCS; principal; 2019-04-17)
DX: G40.909 Epilepsy, unspecified, not intractable, without status epilepticus (principal); N18.6 End stage renal disease; Z68.1 Body mass index [BMI] 19.9 or less, adult; E44.0 Moderate protein-calorie malnutrition; N25.81 Secondary hyperparathyroidism of renal origin; F17.203 Nicotine dependence unspecified, with withdrawal; I12.0 Hypertensive chronic kidney disease with stage 5 chronic kidney disease or end stage renal disease; K80.20 Calculus of gallbladder without cholecystitis without obstruction; D63.1 Anemia in chronic kidney disease; F32.9 Major depressive disorder, single episode, unspecified; F11.10 Opioid abuse, uncomplicated; G43.909 Migraine, unspecified, not intractable, without status migrainosus; I16.0 Hypertensive urgency; F14.10 Cocaine abuse, uncomplicated; Z91.14 Patient's other noncompliance with medication regimen; Z82.49 Family history of ischemic heart disease and other diseases of the circulatory system; Z88.5 Allergy status to narcotic agent; Z88.6 Allergy status to analgesic agent; Z88.8 Allergy status to other drugs, medicaments and biological substances; Z79.51 Long term (current) use of inhaled steroids; Z71.6 Tobacco abuse counseling; Z95.828 Presence of other vascular implants and grafts; Z99.2 Dependence on renal dialysis
CPT/HCPCS: 36415; 70450; 71045; 74176; 80048; 80061; 80074; 80076; 80185; 82140; 82550; 82553; 83735; 83880; 84100; 84484; 84703; 85025; 85610; 85730; 86850; 86870; 86880; 86900; 86901; 87040; 93005; 93010; 95819; G0378; J1170; J1200; J1644; J1953; J2405; J7030

== ENCOUNTER 2019-07-10 11:29 | Observation (INO) | payer MEDICARE ==
[2019-07-10] MEDS ORDERED: levETIRAcetam 1000 MG/NS 0.75% 1,000 MG/100 ML BAG IV ONE ×2 (11:58)
--- NOTE | 2019-07-10 12:22 | Emergency Department Report ---
ED General Adult HPI - General Chief complaint: Seizure Stated complaint: SEIZURE Time Seen by Provider: 07/10/19 11:54 Source: EMS Mode of arrival: Stretcher Limitations: No Limitations - History of Present Illness Initial comments: This is a 29-year-old female that was sent from dialysis after having a generalized seizure. She has a history of seizure disorder. It is unknown how much of her treatment she obtained today. She is postictal and not able to give a history. I do not have transfer documents to review from the dialysis clinic yet. Her compliance with her Keppra is unknown. -: Sudden Severity scale (0 -10): 0 - Related Data Previous Rx's Medication Instructions Recorded Last Taken Type Metoclopramide HCl [Reglan TAB] 5 mg PO TIDAC PRN #20 tablet 12/15/18 Unknown Rx Albuterol Sulfate [Proair 2 puff IH Q4H PRN #1 pump 02/17/19 Unknown Rx Respiclick] Sertraline [Zoloft] 25 mg PO QDAY tablet 02/17/19 Unknown Rx Clonidine HCl [Catapres] 0.3 mg PO TID #60 tablet 04/17/19 Unknown Rx Hydroxychloroquine [Plaquenil] 200 mg PO QDAY #30 tablet 04/17/19 Unknown Rx Labetalol [Labetalol 200mg TAB] 200 mg PO TID #60 tablet 04/17/19 Unknown Rx Phenytoin [Dilantin] 100 mg PO TID #90 capsule.er 04/17/19 Unknown Rx hydrALAZINE [Apresoline TAB] 100 mg PO TID #90 tab 04/17/19 Unknown Rx levETIRAcetam [Keppra TAB] 500 mg PO BID #90 tablet 04/17/19 Unknown Rx methOCARBAMOL [Robaxin TAB] 750 mg PO Q6HR PRN #60 tablet 05/30/19 Unknown Rx Allergies Allergy/AdvReac Type Severity Reaction Status Date / Time acetaminophen [From Percocet] Allergy Itching Verified 04/21/18 08:28 lisinopril Allergy Swelling Verified 04/21/18 08:28 metoprolol Allergy Unknown Verified 04/21/18 08:28 oxycodone [From Percocet] Allergy Itching Verified 04/21/18 08:28 oxycodone HCl [From Percocet] AdvReac Unknown Verified 04/21/18 08:28 ED Review of Systems ROS: Stated complaint: SEIZURE Other details as noted in HPI Comment: Unobtainable due to pts medical conditions ED Past Medical Hx - Past Medical History Hx Hypertension: Yes Hx Congestive Heart Failure: No Hx Renal Disease: Yes (Tues, Thurs, Sat) Hx Arthritis: Yes Hx Headaches / Migraines: Yes Hx Seizures: Yes Hx Asthma: Yes Hx COPD: Yes Additional medical history: Lupus - Surgical History Additional Surgical History: RIGHT ARM graft - Social History Smoking Status: Current Every Day Smoker - Medications Home Medications: Home Medications Medication Instructions Recorded Confirmed Last Taken Type Metoclopramide HCl [Reglan TAB] 5 mg PO TIDAC PRN #20 tablet 12/15/18 04/17/19 Unknown Rx Albuterol Sulfate [Proair 2 puff IH Q4H PRN #1 pump 02/17/19 04/17/19 Unknown Rx Respiclick] Sertraline [Zoloft] 25 mg PO QDAY tablet 02/17/19 04/17/19 Unknown Rx Clonidine HCl [Catapres] 0.3 mg PO TID #60 tablet 04/17/19 Unknown Rx Hydroxychloroquine [Plaquenil] 200 mg PO QDAY #30 tablet 04/17/19 Unknown Rx Labetalol [Labetalol 200mg TAB] 200 mg PO TID #60 tablet 04/17/19 Unknown Rx Phenytoin [Dilantin] 100 mg PO TID #90 capsule.er 04/17/19 Unknown Rx hydrALAZINE [Apresoline TAB] 100 mg PO TID #90 tab 04/17/19 Unknown Rx levETIRAcetam [Keppra TAB] 500 mg PO BID #90 tablet 04/17/19 Unknown Rx methOCARBAMOL [Robaxin TAB] 750 mg PO Q6HR PRN #60 tablet 05/30/19 Unknown Rx ED Physical Exam - General Limitations: Altered Mental Status (apparently postictal) General appearance: alert, in no apparent distress - Head Head exam: Present: atraumatic, normocephalic - Eye Eye exam: Present: normal appearance, PERRL, EOMI. Absent: scleral icterus - ENT ENT exam: Present: mucous membranes moist - Neck Neck exam: Present: normal inspection. Absent: tenderness, meningismus - Respiratory Respiratory exam: Present: normal lung sounds bilaterally. Absent: respiratory distress - Cardiovascular Cardiovascular Exam: Present: regular rate, normal rhythm. Absent: systolic murmur, diastolic murmur, rubs, gallop - GI/Abdominal GI/Abdominal exam: Present: soft, normal bowel sounds. Absent: distended, tenderness, guarding, rebound, rigid - Extremities Exam Extremities exam: Present: normal inspection. Absent: pedal edema, joint swel ling - Back Exam Back exam: Present: other (unable to examine) - Neurological Exam Neurological exam: Present: altered, other (apparent focal deficit) - Psychiatric Psychiatric exam: Present: normal affect, normal mood - Skin Skin exam: Present: warm, dry, intact, normal color. Absent: rash ED Course Vital Signs 07/10/19 07/10/19 07/10/19 12:11 12:12 12:15 Temperature 97.5 F L Pulse Rate 86 74 83 Respiratory 15 20 21 Rate Blood Pressure 135/95 Blood Pressure 133/88 [Left] O2 Sat by Pulse 100 100 100 Oximetry 07/10/19 07/10/19 07/10/19 12:30 12:45 13:00 Temperature Pulse Rate 81 95 H 74 Respiratory 32 H 26 H 13 Rate Blood Pressure 144/102 140/104 136/84 Blood Pressure [Left] O2 Sat by Pulse 97 100 100 Oximetry 07/10/19 07/10/19 07/10/19 13:15 13:30 13:45 Temperature Pulse Rate 75 80 81 Respiratory 14 13 9 L Rate Blood Pressure 142/91 148/96 150/97 Blood Pressure [Left] O2 Sat by Pulse 100 100 100 Oximetry ED Medical Decision Making - Lab Data Result diagrams: 07/10/19 12:42 07/10/19 12:42 Laboratory Results - last 24 hr 07/10/19 07/10/19 07/10/19 12:42 12:42 12:42 WBC 4.1 L RBC 3.54 L Hgb 11.3 Hct 34.3 MCV 97 MCH 32 MCHC 33 RDW 16.7 H Plt Count 188 Lymph % (Auto) 12.4 L [place] % (Auto) 8.3 H Eos % (Auto) 2.6 Baso % (Auto) 1.1 Lymph # 0.5 L [place] # 0.3 Eos # 0.1 Baso # 0.0 Seg Neutrophils % 75.6 H Seg Neutrophils # 3.1 PT 14.4 INR 1.13 APTT 34.3 Sodium TNR Potassium TNR Chloride TNR Carbon Dioxide TNR Anion Gap TNR BUN TNR Creatinine TNR Estimated GFR TNR BUN/Creatinine Ratio TNR Glucose TNR POC Glucose Calcium TNR Phosphorus TNR Magnesium TNR Total Bilirubin TNR Direct Bilirubin TNR Indirect Bilirubin TNR AST TNR ALT TNR Alkaline Phosphatase TNR NT-Pro-B Natriuret Pep TNR Total Protein TNR Albumin TNR Albumin/Globulin Ratio TNR 07/10/19 12:45 WBC RBC Hgb Hct MCV MCH MCHC RDW Plt Count Lymph % (Auto) [place] % (Auto) Eos % (Auto) Baso % (Auto) Lymph # [place] # Eos # Baso # Seg Neutrophils % Seg Neutrophils # PT INR APTT Sodium Potassium Chloride Carbon Dioxide Anion Gap BUN Creatinine Estimated GFR BUN/Creatinine Ratio Glucose POC Glucose 65 L Calcium Phosphorus Magnesium Total Bilirubin Direct Bilirubin Indirect Bilirubin AST ALT Alkaline Phosphatase NT-Pro-B Natriuret Pep Total Protein Albumin Albumin/Globulin Ratio - EKG Data -: EKG Interpreted by Ri EKG shows normal: sinus rhythm Rate: normal - EKG Data Interpretation: other (T wave is prominent consider hyperkalemia) - Radiology Data Radiology results: image reviewed (chest x-ray consistent consistent with venous congestion secondary to volume overload) Critical care attestation.: If time is entered above; I have spent that time in minutes in the direct care of this critically ill patient, excluding procedure time. ED Disposition Clinical Impression: End-stage renal disease needing dialysis, Seizure, Seizure disorder CHF (congestive heart failure) Qualifiers: Heart failure type: combined systolic and diastolic Heart failure chronicity: acute on chronic Qualified Code(s): I50.43 - Acute on chronic combined systolic (congestive) and diastolic (congestive) heart failure Disposition: OP ADMIT IP TO THIS HOSP Is pt being admited?: Yes Does the pt Need Aspirin: Yes Condition: Stable Time of Disposition: 14:05
--- NOTE | 2019-07-10 12:46 | XRay Report ---
CHEST 1 VIEW, 07/10/2019 12:12 PM CLINICAL INFORMATION/INDICATION: Hypertension. Seizure. COMPARISON: Chest radiograph, 04/16/2019 FINDINGS: SUPPORT DEVICES: None. HEART: There is stable moderate enlargement of the cardiac silhouette. LUNGS/PLEURA: There is mild prominence of the pulmonary interstitium suggesting venous hypertension w ithout evidence of overt edema. ADDITIONAL FINDINGS: No additional acute findings. Vascular stent overlies the left axillary region. IMPRESSION: 1. Stable enlargement of the cardiac silhouette. 2. Probable mild venous hypertension. Signer Name: Vi Garcia MD Signed: 07/10/2019 12:41 PM Workstation Name: [id number]
[2019-07-10 13:05] LABS: Basophils % (Auto) 1.1 % (0.0-1.8); Eosinophils # (Auto) 0.1 K/mm3 (0.0-0.4); Eosinophils % (Auto) 2.6 % (0.0-4.3); Hematocrit 34.3 % (30.3-42.9); Hemoglobin 11.3 gm/dl (10.1-14.3); Lymphocytes # (Auto) 0.5 K/mm3 (1.2-5.4); Lymphocytes % (Auto) 12.4 % (13.4-35.0); Mean Corpuscular HGB Conc 33 % (30-34); Mean Corpuscular Volume 97 fl (79-97); Monocytes # (Auto) 0.3 K/mm3 (0.0-0.8); Monocytes % (Auto) 8.3 % (0.0-7.3); Platelet Count 188 K/mm3 (140-440); Red Blood Count 3.54 M/mm3 (3.65-5.03); Red Cell Distribution Width 16.7 % (13.2-15.2)
[2019-07-10 13:15] LABS: INR 1.13 (0.87-1.13)
[2019-07-10 13:16] LABS: Partial Thromboplastin Time 34.3 Sec. (24.2-36.6)
[2019-07-10 13:38] LABS: BUN/Creatinine Ratio TNR; Bilirubin,Direct TNR mg/dL (0-0.2); Blood Urea Nitrogen TNR mg/dL (7-17); Calcium TNR mg/dL (8.4-10.2)
[2019-07-10 13:39] LABS: Alanine Aminotransferase TNR units/L (7-56); Albumin TNR g/dL (3.9-5); Hemolysis Index TNR
[2019-07-10] MEDS ORDERED: ACETAMINOPHEN 325 MG TAB PO PRN (13:50)
[2019-07-10] MEDS ORDERED: ONDANSETRON 4 MG/2 ML INJ IV PRN (13:50)
[2019-07-10] MEDS ORDERED: ALBUTEROL 2.5 MG/3 ML NEBU IH PRN (13:50)
--- NOTE | 2019-07-10 13:50 | History and Physical Report ---
History of Present Illness Chief complaint: I had a seizure History of present illness: 29 YO Female with HTN, Nicotine Dependence, Lupus, OA, Cocaine Dependence, Seizure Disorder, Asthma, Migraine Headache, ESRD on HD (T,R,Sa) presents to ED for evaluation. Pt was in her usual state of health and presented to her di alysis center for her routine scheduled dialysis. Pt had a witnessed seizure. EMS was notified and upon arrival the patient was found to be in distress. Pt was transported to [facility]. Pt seen and evaluated in ED and found to have ESRD, Medication Noncompliance, Hypertensive Urgency, and Seizure Disorder. Pt loaded with keppra. Nephrology team notified in ED for urgent dialysis as per ED physician. Pt placed in observation status and admitted to medical floor. Pt denies fever, chills, trauma, Palpitations, NVD, Productive cough or recent ill contacts. Prior admission on 04/16/19 Reviewed. All listed medication reconciled at time of exam. Past History Past Medical History: other (see hpi) Past Surgical History: Other (dialysis access) Social history: single, smoking, prescription drug abuse Family history: diabetes, hypertension Medications and Allergies Allergies Allergy/AdvReac Type Severity Reaction Status Date / Time acetaminophen [From Percocet] Allergy Itching Verified 04/21/18 08:28 lisinopril Allergy Swelling Verified 04/21/18 08:28 metoprolol Allergy Unknown Verified 04/21/18 08:28 oxycodone [From Percocet] Allergy Itching Verified 04/21/18 08:28 oxycodone HCl [From Percocet] AdvReac Unknown Verified 04/21/18 08:28 Home Medications Medication Instructions Recorded Confirmed Last Taken Type Metoclopramide HCl [Reglan TAB] 5 mg PO TIDAC PRN #20 tablet 12/15/18 04/17/19 Unknown Rx Albuterol Sulfate [Proair 2 puff IH Q4H PRN #1 pump 02/17/19 04/17/19 Unknown Rx Respiclick] Sertraline [Zoloft] 25 mg PO QDAY tablet 02/17/19 04/17/19 Unknown Rx Clonidine HCl [Catapres] 0.3 mg PO TID #60 tablet 04/17/19 Unknown Rx Hydroxychloroquine [Plaquenil] 200 mg PO QDAY #30 tablet 04/17/19 Unknown Rx Labetalol [Labetalol 200mg TAB] 200 mg PO TID #60 tablet 04/17/19 Unknown Rx Phenytoin [Dilantin] 100 mg PO TID #90 capsule.er 04/17/19 Unknown Rx hydrALAZINE [Apresoline TAB] 100 mg PO TID #90 tab 04/17/19 Unknown Rx levETIRAcetam [Keppra TAB] 500 mg PO BID #90 tablet 04/17/19 Unknown Rx methOCARBAMOL [Robaxin TAB] 750 mg PO Q6HR PRN #60 tablet 05/30/19 Unknown Rx Review of Systems Constitutional: no weight loss, no weight gain, no fever, no chills Ears, nose, mouth and throat: no ear pain, no ear discharge, no tinnitis, no decreased hearing, no nose pain, no nasal congestion Breasts: no change in shape, no swelling, no mass Cardiovascular: no chest pain, no orthopnea, no palpitations, no rapid/irregular heart beat Respiratory: no cough, no cough with sputum, no hemoptysis, no shortness of breath, no dyspnea on exertion Gastrointestinal: no abdominal pain, no vomiting, no constipation Genitourinary Female: no pelvic pain, no flank pain, no dysuria, no urinary frequency, no urgency, no stress incontinence Rectal: no pain, no incontinence, no bleeding Musculoskeletal: no neck pain, no shooting arm pain, no low back pain Integumentary: no rash, no pruritis, no redness, no sores, no jaundice Neurological: no transient paralysis, no paralysis, no weakness, no parathesias, no numbness, no tingling Psychiatric: no anxiety, no memory loss, no change in sleep habits, no sleep disturbances, no hypersomnia, no change in appetite, no change in libido Endocrine: no cold intolerance, no heat intolerance, no polydipsia, no polyuria, no nocturia, no excessive sweating Hematologic/Lymphatic: no easy bruising, no easy bleeding, no lymphadenopathy, no lymphedema Allergic/Immunologic: no urticaria, no allergic rhinitis, no persistent infections, no angioedema Exam - Constitutional Vitals: Temp Pulse Resp BP Pulse Ox 97.5 F L 74 20 133/88 100 07/10/19 12:12 07/10/19 12:12 07/10/19 12:12 07/10/19 12:12 07/10/19 12:12 General appearance: Present: no acute distress, well-nourished - EENT Eyes: Present: PERRL ENT: hearing intact, clear oral mucosa - Neck Neck: Present: supple, normal ROM - Respiratory Respiratory effort: normal Respiratory: bilateral: CTA - Cardiovascular Heart Sounds: Present: S1 & S2. Absent: rub, click - Extremities Extremities: pulses symmetrical, No edema Peripheral Pulses: within normal limits - Abdominal General gastrointestinal: Present: soft, non-tender, non-distended, normal bowel sounds Female genitourinary: Present: normal - Integumentary Integumentary: Present: clear, warm, dry - Musculoskeletal Musculoskeletal: gait normal, strength equal bilaterally - Psychiatric Psychiatric: appropriate mood/affect, intact judgment & insight - Neurologic Neurologic: CNII-XII intact, moves all extremities Results - Labs CBC & Chem 7: 07/10/19 12:42 07/10/19 17:05 Labs: Abnormal lab results 07/10/19 07/10/19 Range/Units 12:42 12:45 WBC 4.1 L (4.5-11.0) K/mm3 RBC 3.54 L (3.65-5.03) M/mm3 RDW 16.7 H (13.2-15.2) % Lymph % (Auto) 12.4 L (13.4-35.0) % [place] % (Auto) 8.3 H (0.0-7.3) % Lymph # 0.5 L (1.2-5.4) K/mm3 Seg Neutrophils % 75.6 H (40.0-70.0) % POC Glucose 65 L (70-105) Assessment and Plan - Patient Problems (1) ESRD (end stage renal disease) Current Visit: Yes Status: Acute Plan to address problem: Nephrology consulted in ED, dialysis as per renal team, monitor uop q shift, strict I/O, daily weight, renal diet, avoid nephrotoxic agents. (2) Seizure disorder Current Visit: Yes Status: Acute Plan to address problem: Keppra loading dose in ED, seizure precautions, supportive care. (3) CHF (congestive heart failure) Current Visit: Yes Status: Chronic Qualifiers: Heart failure type: combined systolic and diastolic Heart failure chronicity: acute on chronic Qualified Code(s): I50.43 - Acute on chronic combined systolic (congestive) and diastolic (congestive) heart failure Plan to address problem: Urgent dialysis, Afterload reduction, blood pressure control, strict I/O,daily weight, BNP, supplemental oxygen, pulse oximetry, chest x ray. (4) Medical non-compliance Current Visit: No Status: Acute Plan to address problem: +15 min behavior change counseling. (5) Acidosis Current Visit: Yes Status: Acute Plan to address problem: Urgent dialysis, supportive care. (6) Cocaine dependence Current Visit: Yes Status: Acute Plan to address problem: UDS, supportive care, behavior change counseling. (7) DVT prophylaxis Current Visit: Yes Status: Acute Plan to address problem: SCD to BLE while in bed, Pt ambulatory
[2019-07-10] MEDS ORDERED: ASPIRIN 81 MG TAB CHEW PO ONE (14:06)
[2019-07-10] MEDS ORDERED: HYDROmorphone 1 MG/1 ML INJ ONE (15:39)
[2019-07-10] MEDS ORDERED: ASPIRIN 81 MG TAB CHEW ONE (15:40)
[2019-07-10] MEDS ORDERED: ONDANSETRON 4 MG/2 ML INJ ONE (15:44)
[2019-07-10] MEDS ORDERED: HYDROmorphone 1 MG/1 ML INJ IV ONE (15:50)
[2019-07-10 16:18] VITALS: BP 129/87
[2019-07-10 17:38] LABS: Albumin 3.1 g/dL (3.9-5); BUN/Creatinine Ratio 4; Blood Urea Nitrogen 42 mg/dL (7-17); Calcium 8.6 mg/dL (8.4-10.2); Hemolysis Index 2
[2019-07-10 17:40] LABS: Albumin 3.1 g/dL (3.9-5); BUN/Creatinine Ratio 4; Blood Urea Nitrogen 41 mg/dL (7-17); Calcium 8.7 mg/dL (8.4-10.2); Hemolysis Index 3
[2019-07-10 18:09] LABS: Alanine Aminotransferase < 5 units/L (7-56); Bilirubin,Direct < 0.2 mg/dL (0-0.2)
[2019-07-10 18:10] LABS: Alanine Aminotransferase < 5 units/L (7-56)
== END 2019-07-10 17:50 | disposition left against medical advice (07) ==
LOC: ED 11:29 → 3A 13:50
PROVIDERS: ADMIT Internal Medicine; ATTEND Internal Medicine
DX: G40.409 Other generalized epilepsy and epileptic syndromes, not intractable, without status epilepticus (principal); I13.2 Hypertensive heart and chronic kidney disease with heart failure and with stage 5 chronic kidney disease, or end stage renal disease; N18.6 End stage renal disease; I50.43 Acute on chronic combined systolic (congestive) and diastolic (congestive) heart failure; F14.20 Cocaine dependence, uncomplicated; M19.90 Unspecified osteoarthritis, unspecified site; E87.2 Acidosis; G43.909 Migraine, unspecified, not intractable, without status migrainosus; J44.9 Chronic obstructive pulmonary disease, unspecified; M32.9 Systemic lupus erythematosus, unspecified; J45.909 Unspecified asthma, uncomplicated; F17.200 Nicotine dependence, unspecified, uncomplicated; Z99.2 Dependence on renal dialysis; Z91.19 Patient's noncompliance with other medical treatment and regimen; Z79.899 Other long term (current) drug therapy; Z88.5 Allergy status to narcotic agent; Z88.8 Allergy status to other drugs, medicaments and biological substances
CPT/HCPCS: 36415; 71045; 80048; 80053; 80076; 82962; 83735; 83880; 84100; 85025; 85610; 85730; 93005; 93010; 96365; 96375; 99284; G0378; J1170; J1953; J2405

== ENCOUNTER 2019-07-31 11:58 | Observation (INO) | payer MEDICARE ==
[2019-07-31] MEDS ORDERED: levETIRAcetam 1000 MG/NS 0.75% 1,000 MG/100 ML BAG IV ONE (12:53)
--- NOTE | 2019-07-31 12:58 | Emergency Department Report ---
ED Seizure HPI - General Chief Complaint: Seizure Stated Complaint: SEIZURE Time Seen by Provider: 07/31/19 12:47 Source: EMS Mode of arrival: Stretcher Limitations: Altered Mental Status - History of Present Illness Initial Comments: Patient is 29 years old female with history of end-stage renal disease on hemodialysis, seizure and hypertension. Patient presented to the ER via EMS from dialysis center for evaluation of 2 episode of seizures. EMS is stated that patient did not even he started dialysis when she started having her first seizure. EMS is stating that while they taking from dialysis she have another seizure. Currently patient is post ictal, confused. Patient is on Keppra. MD Complaint: seizure Description of Episode: loss of consciousness, tonic-clonic movement, post-event confusion Witnessed:: Yes Trauma: No Seizure History: known seizure disorder Possible Precipitating Event: none Treatments Prior to Arrival: none - Related Data Previous Rx's Medication Instructions Recorded Last Taken Type Metoclopramide HCl [Reglan TAB] 5 mg PO TIDAC PRN #20 tablet 12/15/18 Unknown Rx Albuterol Sulfate [Proair 2 puff IH Q4H PRN #1 pump 02/17/19 Unknown Rx Respiclick] Sertraline [Zoloft] 25 mg PO QDAY tablet 02/17/19 Unknown Rx Clonidine HCl [Catapres] 0.3 mg PO TID #60 tablet 04/17/19 Unknown Rx Hydroxychloroquine [Plaquenil] 200 mg PO QDAY #30 tablet 04/17/19 Unknown Rx Phenytoin [Dilantin] 100 mg PO TID #90 capsule.er 04/17/19 Unknown Rx hydrALAZINE [Apresoline TAB] 100 mg PO TID #90 tab 04/17/19 Unknown Rx labetaloL [Labetalol 200mg TAB] 200 mg PO TID #60 tablet 04/17/19 Unknown Rx levETIRAcetam [Keppra TAB] 500 mg PO BID #90 tablet 04/17/19 Unknown Rx methOCARBAMOL [Robaxin TAB] 750 mg PO Q6HR PRN #60 tablet 05/30/19 Unknown Rx Allergies Allergy/AdvReac Type Severity Reaction Status Date / Time acetaminophen [From Percocet] Allergy Itching Verified 04/21/18 08:28 lisinopril Allergy Swelling Verified 04/21/18 08:28 metoprolol Allergy Unknown Verified 04/21/18 08:28 oxycodone [From Percocet] Allergy Itching Verified 04/21/18 08:28 oxycodone HCl [From Percocet] AdvReac Unknown Verified 04/21/18 08:28 ED Review of Systems ROS: Stated complaint: SEIZURE Other details as noted in HPI Comment: Unobtainable due to pts medical conditions ED Past Medical Hx - Past Medical History Previous Medical History?: Yes Hx Hypertension: Yes Hx Congestive Heart Failure: Yes Hx Diabetes: Yes Hx Renal Disease: Yes Hx Arthritis: Yes Hx Headaches / Migraines: Yes Hx Seizures: Yes Hx Asthma: Yes Hx COPD: Yes Hx HIV: No Additional medical history: Lupus - Surgical History Past Surgical History?: Yes Additional Surgical History: RIGHT ARM graft - Social History Smoking Status: Unknown if ever smoked Substance Use Type: Alcohol - Medications Home Medications: Home Medications Medication Instructions Recorded Confirmed Last Taken Type Metoclopramide HCl [Reglan TAB] 5 mg PO TIDAC PRN #20 tablet 12/15/18 04/17/19 Unknown Rx Albuterol Sulfate [Proair 2 puff IH Q4H PRN #1 pump 02/17/19 04/17/19 Unknown Rx Respiclick] Sertraline [Zoloft] 25 mg PO QDAY tablet 02/17/19 04/17/19 Unknown Rx Clonidine HCl [Catapres] 0.3 mg PO TID #60 tablet 04/17/19 Unknown Rx Hydroxychloroquine [Plaquenil] 200 mg PO QDAY #30 tablet 04/17/19 Unknown Rx Phenytoin [Dilantin] 100 mg PO TID #90 capsule.er 04/17/19 Unknown Rx hydrALAZINE [Apresoline TAB] 100 mg PO TID #90 tab 04/17/19 Unknown Rx labetaloL [Labetalol 200mg TAB] 200 mg PO TID #60 tablet 04/17/19 Unknown Rx levETIRAcetam [Keppra TAB] 500 mg PO BID #90 tablet 04/17/19 Unknown Rx methOCARBAMOL [Robaxin TAB] 750 mg PO Q6HR PRN #60 tablet 05/30/19 Unknown Rx ED Physical Exam - General Limitations: Altered Mental Status General appearance: alert, in no apparent distress - Head Head exam: Present: atraumatic, normocephalic, normal inspection - Eye Eye exam: Present: normal appearance - ENT ENT exam: Present: normal exam, normal orophraynx, mucous membranes moist - Neck Neck exam: Present: normal inspection, full ROM. Absent: tenderness, meningismus, lymphadenopathy, thyromegaly - Respiratory Respiratory exam: Present: normal lung sounds bilaterally - Cardiovascular Cardiovascular Exam: Present: regular rate, normal rhythm, normal heart sounds - GI/Abdominal GI/Abdominal exam: Present: soft, normal bowel sounds. Absent: distended, tenderness, guarding, rebound, rigid, organomegaly, mass, bruit, pulsatile mass, hernia - Extremities Exam Extremities exam: Present: normal inspection, full ROM, normal capillary refill. Absent: tenderness, pedal edema, calf tenderness - Back Exam Back exam: Present: normal inspection, full ROM. Absent: CVA tenderness (R), CVA tenderness (L), muscle spasm, paraspinal tenderness, vertebral tenderness - Neurological Exam Neurological exam: Present: altered, CN II-XII intact. Absent: motor sensory deficit, reflexes normal - Skin Skin exam: Present: warm, intact, normal color ED Course Vital Signs 07/31/19 07/31/19 07/31/19 12:13 12:16 14:04 Pulse Rate 87 87 79 Respiratory 14 13 12 Rate Blood Pressure 171/101 Blood Pressure 171/101 152/103 [Left] O2 Sat by Pulse 99 99 Oximetry ED Medical Decision Making - Lab Data Result diagrams: 07/31/19 13:11 07/31/19 13:11 - Radiology Data Radiology results: report reviewed - Medical Decision Making Patient is 29 years old female with history of end-stage renal disease on hemodialysis, seizure and hypertension. Patient presented to the ER via EMS from dialysis center for evaluation of 2 episode of seizures. EMS is stated betsy t patient did not even he started dialysis when she started having her first seizure. EMS is stating that while they taking from dialysis she have another seizure. Currently patient is post ictal, confused. Patient is on Keppra. No seizure activity observing the ER however patient remained confused and this is usual for her post ictal status since I saw this patient before several times. Patient received Keppra 1 g IV. I discussed the patient was Dr. Garcia, her cook fish and chips O advised to admit the patient for dialysis. I discussed the patient with Dr. Riojas, he agreed to admit the patient to medical service for further management. Critical Care Time: Yes Critical care time in (mins) excluding proc time.: 30 Critical care attestation.: If time is entered above; I have spent that time in minutes in the direct care of this critically ill patient, excluding procedure time. ED Disposition Clinical Impression: Volume overload, Seizure, End-stage renal disease needing dialysis Disposition: OP ADMIT IP TO THIS HOSP Is pt being admited?: Yes Condition: Stable
[2019-07-31 13:37] LABS: Hematocrit 34.7 % (30.3-42.9); Hemoglobin 11.4 gm/dl (10.1-14.3); Mean Corpuscular HGB Conc 33 % (30-34); Mean Corpuscular Volume 97 fl (79-97); Platelet Count 176 K/mm3 (140-440); Red Blood Count 3.59 M/mm3 (3.65-5.03); Red Cell Distribution Width 14.7 % (13.2-15.2)
[2019-07-31] MEDS ORDERED: SODIUM CHLORIDE 0.9% 100 ML IV PRN ×2 (15:00→17:02)
--- NOTE | 2019-07-31 15:02 | Consultation ---
History of Present Illness - Reason for Consult Consult date: 07/31/19 end stage renal disease, hyperkalemia Requesting physician: ANTWON WEIR - History of Present Illness 29 years old female with history of end-stage renal disease on hemodialysis, seizure and hypertension. Patient presented to the ER via EMS from dialysis center for evaluation of 2 episode of seizures. EMS is stated that patient did not even he started dialysis when she started having her first seizure. EMS is stating that while they taking from dialysis she have another seizure. Currently patient is post ictal, confused. Patient is on Keppra. ROS: Stated complaint: SEIZURE Other details as noted in HPI Comment: Unobtainable due to pts medical conditions - Past Medical History Previous Medical History?: Yes Hx Hypertension: Yes Hx Congestive Heart Failure: Yes Hx Diabetes: Yes Hx Renal Disease: Yes Hx Arthritis: Yes Hx Headaches / Migraines: Yes Hx Seizures: Yes Hx Asthma: Yes Hx COPD: Yes Hx HIV: No Additional medical history: Lupus - Surgical History Past Surgical History?: Yes Additional Surgical History: RIGHT ARM graft - Social History Smoking Status: Unknown if ever smoked Substance Use Type: Alcohol Medications and Allergies Allergies Allergy/AdvReac Type Severity Reaction Status Date / Time acetaminophen [From Percocet] Allergy Itching Verified 04/21/18 08:28 lisinopril Allergy Swelling Verified 04/21/18 08:28 metoprolol Allergy Unknown Verified 04/21/18 08:28 oxycodone [From Percocet] Allergy Itching Verified 04/21/18 08:28 oxycodone HCl [From Percocet] AdvReac Unknown Verified 04/21/18 08:28 Home Medications Medication Instructions Recorded Confirmed Last Taken Type Metoclopramide HCl [Reglan TAB] 5 mg PO TIDAC PRN #20 tablet 12/15/18 04/17/19 Unknown Rx Albuterol Sulfate [Proair 2 puff IH Q4H PRN #1 pump 02/17/19 04/17/19 Unknown Rx Respiclick] Sertraline [Zoloft] 25 mg PO QDAY tablet 02/17/19 04/17/19 Unknown Rx Clonidine HCl [Catapres] 0.3 mg PO TID #60 tablet 04/17/19 Unknown Rx Hydroxychloroquine [Plaquenil] 200 mg PO QDAY #30 tablet 04/17/19 Unknown Rx Phenytoin [Dilantin] 100 mg PO TID #90 capsule.er 04/17/19 Unknown Rx hydrALAZINE [Apresoline TAB] 100 mg PO TID #90 tab 04/17/19 Unknown Rx labetaloL [Labetalol 200mg TAB] 200 mg PO TID #60 tablet 04/17/19 Unknown Rx levETIRAcetam [Keppra TAB] 500 mg PO BID #90 tablet 04/17/19 Unknown Rx methOCARBAMOL [Robaxin TAB] 750 mg PO Q6HR PRN #60 tablet 05/30/19 Unknown Rx Active Meds: Active Medications Sodium Chloride (Nacl 0.9%) 100 mls @ 999 mls/hr IV ALYSSA PRN PRN Reason: Hypotension Exam - Vital Signs Vital signs: Vital Signs Pulse Resp BP Pulse Ox 87 14 171/101 99 07/31/19 12:13 07/31/19 12:13 07/31/19 12:13 07/31/19 12:13 - Physical Exam Narrative exam: - General Limitations: Altered Mental Status General appearance: alert, in no apparent distress - Head Head exam: Present: atraumatic, normocephalic, normal inspection - Eye Eye exam: Present: normal appearance - ENT ENT exam: Present: normal exam, normal orophraynx, mucous membranes moist - Neck Neck exam: Present: normal inspection, full ROM. Absent: tenderness, meningismus, lymphadenopathy, thyromegaly - Respiratory Respiratory exam: Present: normal lung sounds bilaterally - Cardiovascular Cardiovascular Exam: Present: regular rate, normal rhythm, normal heart sounds - GI/Abdominal GI/Abdominal exam: Present: soft, normal bowel sounds. Absent: distended, tenderness, guarding, rebound, rigid, organomegaly, mass, bruit, pulsatile mass, hernia - Extremities Exam Extremities exam: Present: normal inspection, full ROM, normal capillary refill. Absent: tenderness, pedal edema, calf tenderness - Back Exam Back exam: Present: normal inspection, full ROM. Absent: CVA tenderness (R), C VA tenderness (L), muscle spasm, paraspinal tenderness, vertebral tenderness - Neurological Exam Neurological exam: Present: altered, CN II-XII intact. Absent: motor sensory deficit, reflexes normal - Skin Skin exam: Present: warm, intact, normal color Results - Lab Results 07/31/19 13:11 07/31/19 13:11 Most recent lab results Calcium 9.0 mg/dL (8.4-10.2) 07/31/19 13:11 Assessment and Plan Impression: * End stage renal disease * seizure disorder * Accelerated hypertension * SLE * Seizure disorder * Anemia secondary to ESRD * Secondary hyperparathryoidism Plan: * Hemodialysis TTS * UF as tolerated * Pain management per primary team * Continue antiHTN medications * Renal diet * Epogen TIW prn
--- NOTE | 2019-07-31 16:07 | Cat Scan Report ---
CT HEAD WITHOUT CONTRAST INDICATION / CLINICAL INFORMATION: AMS. TECHNIQUE: All CT scans at this location are performed using CT dose reduction for ALARA by means of automated e xposure control. COMPARISON: Head CT 04/16/2019 FINDINGS: HEMORRHAGE: No evidence of intracranial hemorrhage or extra-axial fluid collection. EXTRA-AXIAL SPACES: Cortical sulci, sylvian fissures and basilar cisterns have an unremarkable appear ance. VENTRICULAR SYSTEM: The ventricular system is of normal size and configuration. CEREBRAL PARENCHYMA: No areas of abnormal brain parenchymal attenuation are identified. There is no i ndication of recent infarction. MIDLINE SHIFT OR HERNIATION: There is no mass effect. CEREBELLUM / BRAINSTEM: Brainstem and cerebellum have an unremarkable appearance. INTRACRANIAL VESSELS:No abnormalities are identified on this noncontrast head CT. ORBITS: visualized portions of the orbits have an unremarkable appearance. SOFT TISSUES of HEAD: No significant abnormality. CALVARIUM: Evaluation of bone windows reveals no abnormalities. PARANASAL SINUSES / MASTOID AIR CELLS: Paranasal sinuses are free from inflammatory mucosal disease. Mastoid air cells are normally pneumatized. ADDITIONAL FINDINGS: Multiple anterior piercings with the rings in place. Beam hardening artifact whi ch degrades image quality on several scan locations. IMPRESSION: 1. No intracranial abnormalities are identified on head CT without contrast. 2. No interval change. Signer Name: Raffi Juarez MD Signed: 07/31/2019 4:03 PM Workstation Name: [id number]
[2019-07-31 18:42] LABS: Hepatitis C Virus Antibody Non-Reactive (NonReactive)
[2019-07-31 19:28] LABS: Hepatitis B Surface Antigen Non-Reactive (Negative)
[2019-07-31 20:32] VITALS: BP 168/72
--- NOTE | 2019-07-31 22:23 | History and Physical Report ---
CHIEF COMPLAINT: Seizures, 2 episodes since morning. HISTORY OF PRESENT ILLNESS: A 29-year-old female with history of end-stage renal disease, on hemodialysis and hypertension, brought in by EMS for seizure disorder. The patient had 2 episodes of seizures. The patient is on Keppra for seizures. First seizure happened after dialysis. The patient is currently postictal. The patient is on Keppra. No fever or chills. No change in condition. PAST MEDICAL HISTORY: Significant for end-stage renal disease, hypertension, seizure disorder, muscle spasms. CURRENT MEDICATIONS: On the chart. PAST SURGICAL HISTORY: Right arm graft. SOCIAL HISTORY: Does not smoke. Alcohol occasionally. FAMILY HISTORY: Significant for hypertension. CURRENT MEDICATIONS: Keppra 500 mg twice a day, phenytoin 100 mg 3 times a day. REVIEW OF SYSTEMS: Significant for seizures and postictal state from which she is recovering. Otherwise, review of systems negative. PHYSICAL EXAMINATION: GENERAL: Young female, cooperative during examination. VITAL SIGNS: Blood pressure 133/68, temperature 98.2, pulse 98, respirations 16. HEENT: Unremarkable. Pupils equal and reactive. NECK: Supple, no lymphadenopathy, no thyromegaly. LUNGS: Clear to auscultation and percussion. Good air entry. CARDIOVASCULAR: S1, S2 heard. No gallop, no murmur, no rub. Apical impulse in left fifth intercostal space and midclavicular line. ABDOMEN: Soft and benign. No hepatosplenomegaly. No guarding, no rigidity. Hernial orifices are normal. EXTREMITIES: Good pedal pulses. No pedal edema. SKIN: Normal. AV graft in the right upper extremity. Thrill present. LABORATORY DATA: Significant for white count of 3500, H and H 11.4 and 34.7, platelet count of 176,000. Potassium is 5.4, BUN and creatinine is 35 and 9.4. Sodium is 137. CT of the head is normal. No acute findings. No intracranial abnormalities. ASSESSMENT AND PLAN: 1. Acute encephalopathy secondary to seizure disorder. Continue IV Keppra. IV fluids. On dialysis. 2. End-stage renal disease with hemodialysis. Continue hemodialysis. 3. Seizure disorder. Continue IV Keppra and bridge to p.o. Keppra. 4. Hypertension. Continue labetalol, clonidine, and hydralazine. 5. Asthma. Continue albuterol. 6. Muscle spasms. Continue metoclopramide. 7. Lupus. Continue Plaquenil. 8. Deep venous thrombosis prophylaxis, heparin 5000 q. 12. JOB# [id number] [facility]SM/NTS
--- NOTE | 2019-07-31 22:25 | Event Note ---
Date: 07/31/19 See history and physical and discharge summary in the reports Patient signed out AMA
--- NOTE | 2019-07-31 22:36 | Discharge Summary ---
HOSPITAL COURSE: The patient was admitted for acute encephalopathy, seizure disorder and postictal state. Also, end-stage renal disease for dialysis. The patient did well after IV Keppra and was postictal. Postictal became normal after dialysis over the next few hours. The patient wanted to sign AMA and signed AMA in spite of explaining to her the risks. DISCHARGE DIAGNOSES: 1. Acute encephalopathy. 2. Seizure disorder. 3. Postictal state. 4. Hypertension. 5. End-stage renal disease. 6. Muscle spasms. JOB# [id number] DOMINGO/NTS
[2019-08-01] MEDS ORDERED: HEPARIN 5,000 UNIT/1 ML VIAL SUB-Q SCH (10:00)
== END 2019-07-31 19:30 | disposition left against medical advice (07) ==
LOC: ED 11:58 → 3A 14:38 → INTOOBSV 14:38 → 3A 15:08
PROVIDERS: ADMIT Internal Medicine; ATTEND Internal Medicine
DX: G40.909 Epilepsy, unspecified, not intractable, without status epilepticus (principal); G93.49 Other encephalopathy; I13.0 Hypertensive heart and chronic kidney disease with heart failure and stage 1 through stage 4 chronic kidney disease, or unspecified chronic kidney disease; E11.22 Type 2 diabetes mellitus with diabetic chronic kidney disease; N18.6 End stage renal disease; I50.9 Heart failure, unspecified; M32.9 Systemic lupus erythematosus, unspecified; E87.70 Fluid overload, unspecified; M19.90 Unspecified osteoarthritis, unspecified site; G43.909 Migraine, unspecified, not intractable, without status migrainosus; J44.9 Chronic obstructive pulmonary disease, unspecified; Z99.2 Dependence on renal dialysis; Z79.899 Other long term (current) drug therapy; Z88.8 Allergy status to other drugs, medicaments and biological substances
CPT/HCPCS: 36415; 70450; 80048; 80074; 85027; 96365; 99291; G0378; J1953; 96374; G0257

== ENCOUNTER 2019-09-18 11:30 | Observation (INO) | payer MEDICARE ==
[2019-09-18] MEDS ORDERED: LORazepam 2 MG/ML VIAL ONE (12:01)
[2019-09-18] MEDS ORDERED: LORazepam 2 MG/ML VIAL IV ONE (12:01)
--- NOTE | 2019-09-18 12:07 | Emergency Department Report ---
ED Seizure HPI - General Chief Complaint: Seizure Stated Complaint: SEIZURE Time Seen by Provider: 09/18/19 11:48 Source: patient Mode of arrival: Stretcher Limitations: No Limitations - History of Present Illness Initial Comments: Patient is 29 years old female with history of end-stage renal disease on hemodialysis, history of seizure also. Patient brought to the emergency room from [facility] after patient started to have seizure. Dialysis Center informed EMS that patient just started dialysis when she started to have seizure. Patient is familiar to me as she was admitted by me several times for seizure. Patient is noncompliant with her medication. Patient is taking Keppra 500 mg twice a day. Patient is actively seizing in the ER. No IV medicine given prior to coming to the ER secondary to difficult IV access. IV access immediately obtained and patient given 2 mg of Ativan that aborted her seizure. Patient also started on 500 mg IV Keppra. MD Complaint: seizure -: Sudden Description of Episode: loss of consciousness, tonic-clonic movement, post-event confusion Witnessed:: Yes Trauma: No Seizure History: known seizure disorder, history of non-compliance Possible Precipitating Event: none Treatments Prior to Arrival: none - Related Data Previous Rx's Medication Instructions Recorded Last Taken Type Metoclopramide HCl [Reglan TAB] 5 mg PO TIDAC PRN #20 tablet 12/15/18 Unknown Rx Albuterol Sulfate [Proair 2 puff IH Q4H PRN #1 pump 02/17/19 Unknown Rx Respiclick] Sertraline [Zoloft] 25 mg PO QDAY tablet 02/17/19 Unknown Rx Clonidine HCl [Catapres] 0.3 mg PO TID #60 tablet 04/17/19 Unknown Rx Hydroxychloroquine [Plaquenil] 200 mg PO QDAY #30 tablet 04/17/19 Unknown Rx Phenytoin [Dilantin] 100 mg PO TID #90 capsule.er 04/17/19 Unknown Rx hydrALAZINE [Apresoline TAB] 100 mg PO TID #90 tab 04/17/19 Unknown Rx labetaloL [Labetalol 200mg TAB] 200 mg PO TID #60 tablet 04/17/19 Unknown Rx levETIRAcetam [Keppra TAB] 500 mg PO BID #90 tablet 04/17/19 Unknown Rx methOCARBAMOL [Robaxin TAB] 750 mg PO Q6HR PRN #60 tablet 05/30/19 Unknown Rx Allergies Allergy/AdvReac Type Severity Reaction Status Date / Time acetaminophen [From Percocet] Allergy Itching Verified 04/21/18 08:28 lisinopril Allergy Swelling Verified 04/21/18 08:28 metoprolol Allergy Unknown Verified 04/21/18 08:28 oxycodone [From Percocet] Allergy Itching Verified 04/21/18 08:28 oxycodone HCl [From Percocet] AdvReac Unknown Verified 04/21/18 08:28 ED Review of Systems ROS: Stated complaint: SEIZURE Other details as noted in HPI Comment: Unobtainable due to pts medical conditions ED Past Medical Hx - Past Medical History Previous Medical History?: Yes Hx Hypertension: Yes Hx Congestive Heart Failure: Yes Hx Diabetes: Yes Hx Renal Disease: Yes Hx Arthritis: Yes Hx Headaches / Migraines: Yes Hx Seizures: Yes Hx Asthma: Yes Hx COPD: Yes Hx HIV: No Additional medical history: Lupus - Surgical History Past Surgical History?: Yes Additional Surgical History: RIGHT ARM graft - Social History Smoking Status: Never Smoker Substance Use Type: None - Medications Home Medications: Home Medications Medication Instructions Recorded Confirmed Last Taken Type Metoclopramide HCl [Reglan TAB] 5 mg PO TIDAC PRN #20 tablet 12/15/18 04/17/19 Unknown Rx Albuterol Sulfate [Proair 2 puff IH Q4H PRN #1 pump 02/17/19 04/17/19 Unknown Rx Respiclick] Sertraline [Zoloft] 25 mg PO QDAY tablet 02/17/19 04/17/19 Unknown Rx Clonidine HCl [Catapres] 0.3 mg PO TID #60 tablet 04/17/19 Unknown Rx Hydroxychloroquine [Plaquenil] 200 mg PO QDAY #30 tablet 04/17/19 Unknown Rx Phenytoin [Dilantin] 100 mg PO TID #90 capsule.er 04/17/19 Unknown Rx hydrALAZINE [Apresoline TAB] 100 mg PO TID #90 tab 04/17/19 Unknown Rx labetaloL [Labetalol 200mg TAB] 200 mg PO TID #60 tablet 04/17/19 Unknown Rx levETIRAcetam [Keppra TAB] 500 mg PO BID #90 tablet 04/17/19 Unknown Rx methOCARBAMOL [Robaxin TAB] 750 mg PO Q6HR PRN #60 tablet 05/30/19 Unknown Rx ED Physical Exam - General Limitations: No Limitations General appearance: other (patient is actively seizing.) - Head Head exam: Present: atraumatic, normocephalic, normal inspection - Eye Eye exam: Present: normal appearance - ENT ENT exam: Present: normal exam, normal orophraynx, mucous membranes moist - Neck Neck exam: Present: normal inspection. Absent: tenderness, meningismus - Respiratory Respiratory exam: Present: rales - Cardiovascular Cardiovascular Exam: Present: regular rate, normal rhythm, normal heart sounds - GI/Abdominal GI/Abdominal exam: Present: soft, normal bowel sounds. Absent: distended, tenderness, guarding, rebound, rigid, organomegaly, mass, bruit, pulsatile mass, hernia - Extremities Exam Extremities exam: Present: normal inspection, full ROM, normal capillary refill. Absent: pedal edema - Back Exam Back exam: Present: normal inspection, full ROM. Absent: CVA tenderness (R), CVA tenderness (L) - Skin Skin exam: Present: warm, intact, normal color ED Course Vital Signs 09/18/19 11:44 Temperature 98.5 F Pulse Rate 85 Respiratory 16 Rate Blood Pressure 168/117 O2 Sat by Pulse 94 Oximetry ED Medical Decision Making - Lab Data Result diagrams: 09/18/19 12:07 09/18/19 12:07 - EKG Data -: EKG Interpreted by Me EKG shows normal: sinus rhythm Rate: normal - EKG Data Interpretation: no acute changes - Radiology Data Radiology results: report reviewed - Medical Decision Making Patient is 29 years old female with history of end-stage renal disease on hemodialysis, history of seizure also. Patient brought to the emergency room from [facility] after patient started to have seizure. Dialysis Center informed EMS that patient just started dialysis when she started to have seizure. Patient is familiar to me as she was admitted by me several times for seizure. Patient is noncompliant with her medication. Patient is taking Keppra 500 mg twice a day. Patient is actively seizing in the ER. No IV medicine given prior to coming to the ER secondary to difficult IV access. IV access immediately obtained and patient given 2 mg of Ativan that aborted her seizure. Patient also started on 500 mg IV Keppra. Labs reviewed and is unremarkable. No seizure activity observed in the emergency room but patient is still postictal. I discussed the patient with Dr. Freedman, surveillance sensor operator and he advised that he will put dialysis order. I discussed the patient with Dr. Randall, he agreed to admit the patient to medical service for further management. Critical Care Time: Yes Critical care time in (mins) excluding proc time.: 30 Critical care attestation.: If time is entered above; I have spent that time in minutes in the direct care of this critically ill patient, excluding procedure time. ED Disposition Clinical Impression: ESRD needing dialysis, Volume overload, Seizure Disposition: OP ADMIT IP TO THIS HOSP Is pt being admited?: Yes Condition: Stable
[2019-09-18] MEDS ORDERED: levETIRAcetam 500 MG in DEXTROSE 5% IN WATER 100 ML IV ONE (12:30)
[2019-09-18] MEDS ORDERED: levETIRAcetam 1000 MG/NS 0.75% 0 MG/0 ML BAG IV ONE (12:35)
[2019-09-18 12:37] LABS: Hemoglobin 10.2 gm/dl (10.1-14.3); Mean Corpuscular HGB Conc 33 % (30-34); Mean Corpuscular Volume 94 fl (79-97); Platelet Count 213 K/mm3 (140-440); Red Cell Distribution Width 14.7 % (13.2-15.2)
[2019-09-18 12:45] LABS: Albumin 3.1 g/dL (3.9-5); BUN/Creatinine Ratio 2; Blood Urea Nitrogen 19 mg/dL (7-17); Calcium 8.9 mg/dL (8.4-10.2); Hemolysis Index 20
[2019-09-18 12:46] LABS: Alanine Aminotransferase < 5 units/L (7-56); Bilirubin,Direct < 0.2 mg/dL (0-0.2)
--- NOTE | 2019-09-18 13:59 | Consultation ---
Medications and Allergies Allergies Allergy/AdvReac Type Severity Reaction Status Date / Time acetaminophen [From Percocet] Allergy Itching Verified 04/21/18 08:28 lisinopril Allergy Swelling Verified 04/21/18 08:28 metoprolol Allergy Unknown Verified 04/21/18 08:28 oxycodone [From Percocet] Allergy Itching Verified 04/21/18 08:28 oxycodone HCl [From Percocet] AdvReac Unknown Verified 04/21/18 08:28 Home Medications Medication Instructions Recorded Confirmed Last Taken Type Metoclopramide HCl [Reglan TAB] 5 mg PO TIDAC PRN #20 tablet 12/15/18 04/17/19 Unknown Rx Albuterol Sulfate [Proair 2 puff IH Q4H PRN #1 pump 02/17/19 04/17/19 Unknown Rx Respiclick] Sertraline [Zoloft] 25 mg PO QDAY tablet 02/17/19 04/17/19 Unknown Rx Clonidine HCl [Catapres] 0.3 mg PO TID #60 tablet 04/17/19 Unknown Rx Hydroxychloroquine [Plaquenil] 200 mg PO QDAY #30 tablet 04/17/19 Unknown Rx Phenytoin [Dilantin] 100 mg PO TID #90 capsule.er 04/17/19 Unknown Rx hydrALAZINE [Apresoline TAB] 100 mg PO TID #90 tab 04/17/19 Unknown Rx labetaloL [Labetalol 200mg TAB] 200 mg PO TID #60 tablet 04/17/19 Unknown Rx levETIRAcetam [Keppra TAB] 500 mg PO BID #90 tablet 04/17/19 Unknown Rx methOCARBAMOL [Robaxin TAB] 750 mg PO Q6HR PRN #60 tablet 05/30/19 Unknown Rx Exam - Vital Signs Vital signs: Vital Signs Temp Pulse Resp BP Pulse Ox 98.5 F 85 16 168/117 94 09/18/19 11:44 09/18/19 11:44 09/18/19 11:44 09/18/19 11:44 09/18/19 11:44 Results - Lab Results 09/18/19 12:07 09/18/19 12:07 Most recent lab results Calcium 8.9 mg/dL (8.4-10.2) 09/18/19 12:07
[2019-09-18] MEDS ORDERED: SODIUM CHLORIDE 0.9% 100 ML IV PRN (14:00)
[2019-09-18] MEDS ORDERED: NON-FORMULARY EACH (Albuterol Sulfate [Proair Respiclick] 2 PUFF) IH PRN (14:22)
[2019-09-18] MEDS ORDERED: METOCLOPRAMIDE HCL 5 MG PO PRN (14:22)
--- NOTE | 2019-09-18 14:22 | History and Physical Report ---
History of Present Illness Date of examination: 09/18/19 Date of admission: 09/18/19 Chief complaint: Seizure disorder History of present illness: Patient is a 29 YO Female with HTN, Nicotine Dependence, Lupus, OA, Cocaine Dependence [although states she had quit], Seizure Disorder, Asthma, Migraine Headache, ESRD on HD (T,R,Sa) presents to ED for evaluation following a seizure episode which started at the dialysis center. Patient has had multiple admissions for the same reason she is noncompliant with her medication although she tells me that she takes her medication Keppra 500 mg twice a day. On arrival to the ED she was actively seizing she also denies any recent use of cocaine. She was started on IV Keppra with resolution of her seizure including 2 mg of Ativan. She is more awake alert and oriented at this time although mild postictal confusion still persist and sluggish appearing. Patient nevertheless denies any chest pain nausea vomiting or diarrhea. In the ED she was witnessed to have loss of consciousness, tonic-clonic movement, post-event confusion Past History Past Medical History: diabetes, hyperthyroidism, hypertension, hyperlipidemia, seizures Past Surgical History: Other (Right upper extremity AV graft) Social history: no significant social history, full code Family history: no significant family history Medications and Allergies Allergies Allergy/AdvReac Type Severity Reaction Status Date / Time acetaminophen [From Percocet] Allergy Itching Verified 04/21/18 08:28 lisinopril Allergy Swelling Verified 04/21/18 08:28 metoprolol Allergy Unknown Verified 04/21/18 08:28 oxycodone [From Percocet] Allergy Itching Verified 04/21/18 08:28 oxycodone HCl [From Percocet] AdvReac Unknown Verified 04/21/18 08:28 Home Medications Medication Instructions Recorded Confirmed Last Taken Type Metoclopramide HCl [Reglan TAB] 5 mg PO TIDAC PRN #20 tablet 12/15/18 09/18/19 Unknown Rx Albuterol Sulfate [Proair 2 puff IH Q4H PRN #1 pump 02/17/19 09/18/19 Unknown Rx Respiclick] Sertraline [Zoloft] 25 mg PO QDAY tablet 02/17/19 09/18/19 Unknown Rx Clonidine HCl [Catapres] 0.3 mg PO TID #60 tablet 04/17/19 09/18/19 Unknown Rx Hydroxychloroquine [Plaquenil] 200 mg PO QDAY #30 tablet 04/17/19 09/18/19 Unkno wn Rx Phenytoin [Dilantin] 100 mg PO TID #90 capsule.er 04/17/19 09/18/19 Unknown Rx hydrALAZINE [Apresoline TAB] 100 mg PO TID #90 tab 04/17/19 09/18/19 Unknown Rx labetaloL [Labetalol 200mg TAB] 200 mg PO TID #60 tablet 04/17/19 09/18/19 Unknown Rx levETIRAcetam [Keppra TAB] 500 mg PO BID #90 tablet 04/17/19 09/18/19 Unknown Rx methOCARBAMOL [Robaxin TAB] 750 mg PO Q6HR PRN #60 tablet 05/30/19 09/18/19 Unknown Rx Active Meds: Active Medications Sodium Chloride (Nacl 0.9%) 100 mls @ 999 mls/hr IV ALYSSA PRN PRN Reason: Hypotension Review of Systems ROS unobtainable: due to mental status Constitutional: no weight gain, no fever, no sweats, no fatigue, no lethargy Cardiovascular: no orthopnea, no rapid/irregular heart beat, no syncope, no lightheadedness, no claudication, no high blood pressure Respiratory: no shortness of breath, no dyspnea on exertion, no wheezing, no pleurisy, no pain on inspiration Gastrointestinal: no vomiting, no constipation, no hematemesis, no hematochezia, no early satiety, no dyspepsia/bloating Neurological: seizures, convulsions, change in speech, change in mentation, no transient paralysis, no weakness, no parathesias, no numbness, no tingling, no syncope, no tremors, no ataxia, no lack of coordination, no headaches, no migraines Psychiatric: no hypersomnia, no change in libido, no disorientation, no hopelessness, no difficulties concentrating Endocrine: no heat intolerance, no polyphagia, no nocturia, no weight change, no deepening of the voice Allergic/Immunologic: no wheezing Exam - Physical Exam Narrative exam: VITAL SIGNS: Reviewed. GENERAL: The patient appears normally developed, multiple punctate lesion vital signs as documented. HEAD: No signs of head trauma. EYES: Pupils are equal. Extraocular motions intact. EARS: Hearing grossly intact. MOUTH: Oropharynx is normal. NECK: No adenopathy, no JVD. CHEST: Chest with clear breath sounds bilaterally. No wheezes, rales, or rhonchi. CARDIAC: Regular rate and rhythm. S1 and S2, without murmurs, gallops, or rubs. VASCULAR: No Edema. Right upper extremity AV graft/fistula peripheral pulses normal and equal in all extremities. ABDOMEN: Soft, non tender and non distended. No rebound or guarding, and no masses palpated. Bowel Sounds normal. MUSCULOSKELETAL: Good range of motion of all major joints. Extremities without clubbing, cyanosis or edema. NEUROLOGIC EXAM: Alert and oriented x 3 No focal sensory or strength deficits. Speech normal. Follows commands. PSYCHIATRIC: Mood normal. SKIN: detail exam as documented in skin assessment - Constitutional Vitals: Temp Pulse Resp BP Pulse Ox 98.5 F 85 16 168/117 94 09/18/19 11:44 09/18/19 11:44 09/18/19 11:44 09/18/19 11:44 09/18/19 11:44 Results - Labs CBC & Chem 7: 09/18/19 12:07 09/18/19 12:07 Labs: Laboratory Last Values WBC 3.3 K/mm3 (4.5-11.0) L 09/18/19 12:07 RBC 3.30 M/mm3 (3.65-5.03) L 09/18/19 12:07 Hgb 10.2 gm/dl (10.1-14.3) 09/18/19 12:07 Hct 31.0 % (30.3-42.9) 09/18/19 12:07 MCV 94 fl (79-97) 09/18/19 12:07 MCH 31 pg (28-32) 09/18/19 12:07 MCHC 33 % (30-34) 09/18/19 12:07 RDW 14.7 % (13.2-15.2) 09/18/19 12:07 Plt Count 213 K/mm3 (140-440) 09/18/19 12:07 Sodium 132 mmol/L (137-145) L 09/18/19 12:07 Potassium 5.0 mmol/L (3.6-5.0) 09/18/19 12:07 Chloride 93.6 mmol/L (98-107) L 09/18/19 12:07 Carbon Dioxide 21 mmol/L (22-30) L 09/18/19 12:07 Anion Gap 22 mmol/L 09/18/19 12:07 BUN 19 mg/dL (7-17) H 09/18/19 12:07 Creatinine 7.9 mg/dL (0.7-1.2) H 09/18/19 12:07 Estimated GFR 7 ml/min 09/18/19 12:07 BUN/Creatinine Ratio 2 % 09/18/19 12:07 Glucose 70 mg/dL (65-100) 09/18/19 12:07 Calcium 8.9 mg/dL (8.4-10.2) 09/18/19 12:07 Total Bilirubin 0.30 mg/dL (0.1-1.2) 09/18/19 12:07 Direct Bilirubin < 0.2 mg/dL (0-0.2) 09/18/19 12:07 AST 14 units/L (5-40) 09/18/19 12:07 ALT < 5 units/L (7-56) L 09/18/19 12:07 Alkaline Phosphatase 126 units/L (35-129) 09/18/19 12:07 Total Protein 8.6 g/dL (6.3-8.2) H 09/18/19 12:07 Albumin 3.1 g/dL (3.9-5) L 09/18/19 12:07 Albumin/Globulin Ratio 0.6 % 09/18/19 12:07 Assessment and Plan Assessment and plan: Patient is a 29 YO Female with HTN, Nicotine Dependence, Lupus, OA, Cocaine Dependence [although states she had quit], Seizure Disorder, Asthma, Migraine Headache, ESRD on HD (T,R,Sa) presents to ED for evaluation following a seizure episode which started at the dialysis center. Patient has had multiple admissions for the same reason she is noncompliant with her medication although she tells me that she takes her medication Keppra 500 mg twice a day. On arrival to the ED she was actively seizing she also denies any recent use of cocaine. She was started on IV Keppra with resolution of her seizure including 2 mg of Ativan. She is more awake alert and oriented at this time although mild postictal confusion still persist and sluggish appearing. Patient nevertheless denies any chest pain nausea vomiting or diarrhea. In the ED she was witnessed to have loss of consciousness, tonic-clonic movement, post- event confusion - Patient Problems (1)Seizure disorder with status epilepticus on arrival to the ED Current Visit: Yes Status: Acute Plan to address problem: Keppra loading dose in ED, seizure precautions, supportive care. Resume home medications Obtain neurology consultation (2) ESRD (end stage renal disease) Current Visit: Yes Status: Acute Plan to address problem: Nephrology consulted in ED, dialysis as per renal team, monitor uop q shift, strict I/O, daily weight, renal diet, avoid nephrotoxic agents. (3) CHF (congestive heart failure) Current Visit: Yes Status: Chronic Qualifiers: Heart failure type: combined systolic and diastolic Heart failure chronicity: acute on chronic Qualified Code(s): I50.43 - Acute on chronic combined systolic (congestive) and diastolic (congestive) heart failure Plan to address problem: Urgent dialysis, Afterload reduction, blood pressure control, strict I/O,daily weight, BNP, supplemental oxygen, pulse oximetry, chest x ray. (4) Medical non-compliance Current Visit: No Status: Acute Plan to address problem: +15 min behavior change counseling. (5) Acidosis Current Visit: Yes Status: Acute Plan to address problem: Urgent dialysis, supportive care. (6) Cocaine dependence per history Current Visit: Yes Status: Acute Plan to address problem: UDS, supportive care, behavior change counseling. (7) DVT prophylaxis Current Visit: Yes Status: Acute Plan to address problem: SCD to BLE while in bed, Pt ambulatory Plan of care discussed with the patient in detail during my exam at the dialysis center. Advance Directives: Yes Plan of care discussed with patient/family: Yes
[2019-09-18] MEDS ORDERED: ONDANSETRON 4 MG/2 ML INJ IV PRN (14:23)
[2019-09-18] MEDS ORDERED: ACETAMINOPHEN 325 MG TAB PO PRN (14:23)
[2019-09-18] MEDS ORDERED: LORazepam 2 MG/ML VIAL IV PRN (14:26)
[2019-09-18] MEDS ORDERED: METOCLOPRAMIDE 10 MG TAB PO PRN (14:45)
[2019-09-18] MEDS ORDERED: cloNIDine TTS 0.1 MG/24 HR PATCH TD SCH (16:00)
[2019-09-18] MEDS ORDERED: ALBUTEROL 2.5 MG/3 ML NEBU IH PRN (16:00)
[2019-09-18 17:46] LABS: Hepatitis B Surface Antigen Non-Reactive (Negative); Hepatitis C Virus Antibody Non-Reactive (NonReactive)
[2019-09-18 19:19] LABS: Total Cells Counted 100
[2019-09-18 19:20] LABS: Anisocytosis 1+; Basophils % (Manual) 0 % (0.0-1.8); Platelet Estimate Consistent w Auto; Poikilocytosis 1+
[2019-09-18] MEDS: hydrALAZINE 100 MG TAB PO SCH (19:59)
[2019-09-18] MEDS: PHENYTOIN 100 MG CAPSULE.ER PO SCH (19:59)
[2019-09-18] MEDS ORDERED: NON-FORMULARY EACH (Clonidine Hcl [Catapres] 0.3 MG) PO SCH (20:00)
[2019-09-18] MEDS: cloNIDine 0.1 MG TAB PO SCH (20:41)
[2019-09-18] MEDS ORDERED: SODIUM CHLORIDE*PRIMING MACHINE ONLY FOR DIALYSIS MC ONE (22:31)
[2019-09-18] MEDS: levETIRAcetam 1,000 MG in DEXTROSE 5% IN WATER 100 ML IV SCH (22:53)
[2019-09-18] MEDS ORDERED: IBUPROFEN 600 MG TAB PO ONE (23:00)
[2019-09-19] MEDS ORDERED: DEXTROSE 50% IN WATER (25GM) 50 ML SYRINGE IV ONE ×2 (02:41→03:06)
[2019-09-19] MEDS ORDERED: diphenhydrAMINE 25 MG CAP PO PRN (03:05)
[2019-09-19 04:34] LABS: Hematocrit 27.5 % (30.3-42.9); Hemoglobin 9.2 gm/dl (10.1-14.3); Mean Corpuscular HGB Conc 34 % (30-34); Mean Corpuscular Volume 94 fl (79-97); Platelet Count 166 K/mm3 (140-440); Red Blood Count 2.92 M/mm3 (3.65-5.03); Red Cell Distribution Width 14.1 % (13.2-15.2)
[2019-09-19 04:48] LABS: Calcium 8.3 mg/dL (8.4-10.2)
[2019-09-19 05:30] LABS: Basophils % (Manual) 0 % (0.0-1.8); Eosinophils % (Manual) 0 % (0.0-4.3); Total Cells Counted 100
[2019-09-19 05:31] LABS: Anisocytosis Few; Poikilocytosis Few; Tear Drop Cells Rare
[2019-09-19 05:32] LABS: Platelet Estimate Consistent w Auto
[2019-09-19] MEDS: hydrALAZINE 100 MG TAB PO SCH (08:39)
[2019-09-19] MEDS: cloNIDine 0.1 MG TAB PO SCH (08:39)
[2019-09-19] MEDS: levETIRAcetam 1,000 MG in DEXTROSE 5% IN WATER 100 ML IV SCH (09:28)
[2019-09-19] MEDS: PHENYTOIN 100 MG CAPSULE.ER PO SCH ×2 (09:28→14:22)
[2019-09-19] MEDS ORDERED: SERTRALINE 25 MG TAB PO SCH (10:00)
[2019-09-19] MEDS ORDERED: HYDROXYCHLOROQUINE 200 MG TAB PO SCH (10:00)
--- NOTE | 2019-09-19 10:23 | Consultation ---
Past History Past Medical History: diabetes, hyperthyroidism, hypertension, hyperlipidemia, seizures Past Surgical History: Other (Right upper extremity AV graft) Social history: no significant social history, full code Family history: no significant family history Medications and Allergies Allergies Allergy/AdvReac Type Severity Reaction Status Date / Time acetaminophen [From Percocet] Allergy Itching Verified 04/21/18 08:28 lisinopril Allergy Swelling Verified 04/21/18 08:28 metoprolol Allergy Unknown Verified 04/21/18 08:28 oxycodone [From Percocet] Allergy Itching Verified 04/21/18 08:28 oxycodone HCl [From Percocet] AdvReac Unknown Verified 04/21/18 08:28 Home Medications Medication Instructions Recorded Confirmed Last Taken Type Metoclopramide HCl [Reglan TAB] 5 mg PO TIDAC PRN #20 tablet 12/15/18 09/18/19 Unknown Rx Albuterol Sulfate [Proair 2 puff IH Q4H PRN #1 pump 02/17/19 09/18/19 Unknown Rx Respiclick] Sertraline [Zoloft] 25 mg PO QDAY tablet 02/17/19 09/18/19 Unknown Rx Clonidine HCl [Catapres] 0.3 mg PO TID #60 tablet 04/17/19 09/18/19 Unknown Rx Hydroxychloroquine [Plaquenil] 200 mg PO QDAY #30 tablet 04/17/19 09/18/19 Unknown Rx Phenytoin [Dilantin] 100 mg PO TID #90 capsule.er 04/17/19 09/18/19 Unknown Rx hydrALAZINE [Apresoline TAB] 100 mg PO TID #90 tab 04/17/19 09/18/19 Unknown Rx labetaloL [Labetalol 200mg TAB] 200 mg PO TID #60 tablet 04/17/19 09/18/19 Unknown Rx levETIRAcetam [Keppra TAB] 500 mg PO BID #90 tablet 04/17/19 09/18/19 Unknown Rx methOCARBAMOL [Robaxin TAB] 750 mg PO Q6HR PRN #60 tablet 05/30/19 09/18/19 Unknown Rx Active Meds: Active Medications Albuterol (Proventil) 2.5 mg IH Q4HRT PRN PRN Reason: Shortness Of Breath Clonidine HCl (Catapres-Tts Patch) 0.1 mg TD Sa@1600 [facility] Clonidine HCl (Catapres) 0.3 mg PO TID [facility] Stop: 09/20/19 23:59 Last Admin: 09/19/19 08:39 Dose: Not Given Documented by: Diphenhydramine HCl (Benadryl) 25 mg PO QHS PRN PRN Reason: Itching Last Admin: 09/19/19 03:26 Dose: 25 mg Documented by: Hydralazine HCl (Apresoline) 100 mg PO TID [facility] Last Admin: 09/19/19 08:39 Dose: Not Given Documented by: Hydroxychloroquine Sulfate (Plaquenil) 200 mg PO QDAY [facility] Last Admin: 09/19/19 09:29 Dose: 200 mg Documented by: Sodium Chloride (Nacl 0.9%) 100 mls @ 999 mls/hr IV ALYSSA PRN PRN Reason: Hypotension Levetiracetam 1,000 mg/ (Dextrose) 110 mls @ 400 mls/hr IV Q12HR [facility] Last Admin: 09/19/19 09:28 Dose: 400 mls/hr Documented by: Labetalol HCl (Labetalol) 200 mg PO TID [facility] Last Admin: 09/19/19 08:40 Dose: Not Given Documented by: Lorazepam (Ativan) 1 mg IV Q1H PRN PRN Reason: Seizures Methocarbamol (Robaxin) 750 mg PO Q6H PRN PRN Reason: Spasms Last Admin: 09/18/19 20:07 Dose: 750 mg Documented by: Metoclopramide HCl (Reglan) 5 mg PO TIDAC PRN PRN Reason: Nausea Ondansetron HCl (Zofran) 4 mg IV Q8H PRN PRN Reason: Nausea And Vomiting Phenytoin (Dilantin) 100 mg PO TID [facility] Last Admin: 09/19/19 09:28 Dose: 100 mg Documented by: Sertraline HCl (Zoloft) 25 mg PO QDAY [facility] Last Admin: 09/19/19 09:28 Dose: 25 mg Documented by: Sodium Chloride (Sodium Chloride Flush Syringe 10 Ml) 10 ml IV BID [facility] Last Admin: 09/19/19 09:29 Dose: 10 ml Documented by: Sodium Chloride (Sodium Chloride Flush Syringe 10 Ml) 10 ml IV PRN PRN PRN Reason: LINE FLUSH Exam - Vital Signs Vital signs: Vital Signs Temp Pulse Resp BP Pulse Ox 98.5 F 85 16 168/117 94 09/18/19 11:44 09/18/19 11:44 09/18/19 11:44 09/18/19 11:44 09/18/19 11:44 Results - Lab Results 09/19/19 04:21 09/19/19 04:21 Most recent lab results Calcium 8.3 mg/dL (8.4-10.2) L 09/19/19 04:21
--- NOTE | 2019-09-19 12:00 | Discharge Summary ---
Providers - Providers Date of Admission: 09/18/19 14:03 Attending physician: ANTWON WEIR MD 09/18/19 Consult to Case Management [CONS] Routine Services Needed at Discharge: Restaurant Manager Notified:: cm 09/18/19 13:58 Consult to Physician [CONS] Stat Comment: DR MARVIN BOSCH W/DR YO @[id number] Consulting Provider: ULYSSES YO Physician Instructions: Reason For Exam: ESRD NEEDING DIALYSIS 09/18/19 14:25 Consult to Physician [CONS] Routine Comment: Consulting Provider: CASH PHELAN Physician Instructions: Reason For Exam: status epiliepticus Primary care physician: [facility], Hospitalization Reason for admission: Seizure Condition: Stable Hospital course: Patient is a 29 YO Female with HTN, Nicotine Dependence, Lupus, OA, Cocaine Dependence [although states she had quit], Seizure Disorder, Asthma, Migraine Headache, ESRD on HD (T,R,Sa) presents to ED for evaluation following a seizure episode which started at the dialysis center. Patient has had multiple admissions for the same reason she is noncompliant with her medication although she tells me that she takes her medication Keppra 500 mg twice a day. On arrival to the ED she was actively seizing she also denies any recent use of cocaine. She was started on IV Keppra with resolution of her seizure including 2 mg of Ativan. She is more awake alert and oriented at this time although mild postictal confusion still persist and sluggish appearing. Patient nevertheless denies any chest pain nausea vomiting or diarrhea. In the ED she was witnessed to have loss of consciousness, tonic-clonic movement, post- event confusion Following diuresis with HD patient symptoms improved. She is clinically stable. We did increase her Keppra. Again according to [place] law advised no driving until seen by neurologist. She will follow with her primary neurologist. She was seen and evaluated by vascular and will have an outpatient fistulogram for evaluation of arm pain. Patient improved faster than anticipated - Patient Problems (1)Seizure disorder with status epilepticus on arrival to the ED (2) ESRD (end stage renal disease) (3) CHF (congestive heart failure)combined systolic and diastolic -stable (4) Medical non-compliance (5) Acidosis metabolic (6) Cocaine dependence per history Disposition: [id number] HOME [facility] Time spent for discharge: 35 mins Core Measure Documentation - Palliative Care Palliative Care/ Comfort Measures: Not Applicable - Core Measures Any of the following diagnoses?: none Exam - Physical Exam Narrative exam: VITAL SIGNS: Reviewed. GENERAL: The patient appears normally developed, multiple punctate lesion vital signs as documented. HEAD: No signs of head trauma. EYES: Pupils are equal. Extraocular motions intact. EARS: Hearing grossly intact. MOUTH: Oropharynx is normal. NECK: No adenopathy, no JVD. CHEST: Chest with clear breath sounds bilaterally. No wheezes, rales, or rhonchi. CARDIAC: Regular rate and rhythm. S1 and S2, without murmurs, gallops, or rubs. VASCULAR: No Edema. Right upper extremity AV graft/fistula peripheral pulses normal and equal in all extremities. ABDOMEN: Soft, non tender and non distended. No rebound or guarding, and no masses palpated. Bowel Sounds normal. MUSCULOSKELETAL: Good range of motion of all major joints. Extremities without clubbing, cyanosis or edema. NEUROLOGIC EXAM: Alert and oriented x 3 No focal sensory or strength deficits. Speech normal. Follows commands. PSYCHIATRIC: Mood normal. SKIN: detail exam as documented in skin assessment - Constitutional Vitals: Temp Pulse Resp BP Pulse Ox 97.5 F L 72 18 101/64 97 09/19/19 06:16 09/19/19 08:40 09/19/19 06:16 09/19/19 08:40 09/19/19 09:23 Plan Activity: advance as tolerated, fall precautions Diet: low fat, diabetic Special Instructions: record daily weights, record daily BP diary, record blood sugar diary, other (quit substance abuse) Follow up with: [facility] MD MAR [Primary Care Provider] - 7 Days ULYSSES YO MD [Staff Physician] - 7 Days ANTWON HAMILTON MD [Staff Physician] - 7 Days Prescriptions: levETIRAcetam [Keppra TAB] 750 mg PO BID #60 tablet Albuterol INH(or & Nicu Only) [ProAir HFA Inhaler] 2 puff IH QID PRN #8.5 gram PRN Reason: Shortness Of Breath
--- NOTE | 2019-09-19 12:02 | Event Note ---
Date: 09/19/19 patient with right arm av fistula having issues with pain and swelling in the right arm patient to be discharged today will schedule patient for fistulogram as an outpatient
[2019-09-19 12:49] VITALS: BP 130/87
== END 2019-09-19 16:00 | disposition home health service (06) ==
LOC: ED 11:30 → INTOOBSV 14:03 → 3A 14:03
PROVIDERS: ADMIT Internal Medicine; ATTEND Internal Medicine
DX: G40.909 Epilepsy, unspecified, not intractable, without status epilepticus (principal); I13.2 Hypertensive heart and chronic kidney disease with heart failure and with stage 5 chronic kidney disease, or end stage renal disease; N18.6 End stage renal disease; E87.70 Fluid overload, unspecified; E87.2 Acidosis; F14.20 Cocaine dependence, uncomplicated; E11.22 Type 2 diabetes mellitus with diabetic chronic kidney disease; I50.9 Heart failure, unspecified; Z99.2 Dependence on renal dialysis; E78.5 Hyperlipidemia, unspecified; Z79.899 Other long term (current) drug therapy
CPT/HCPCS: 36415; 80048; 80074; 80076; 82962; 85007; 85025; 87116; 93005; 93010; 94760; 96365; 96366; 96374; 96375; 96376; 99285; 99291; G0378; J1953; J2060; J3246; J7030

== ENCOUNTER 2019-09-27 11:11 | Emergency (ER) | payer MEDICARE ==
--- NOTE | 2019-09-27 11:53 | Emergency Department Report ---
Blank Doc - Documentation Documentation: 29 y/o female with known history of ESRD and LUPUS also recently admitted her for seizures presents to ED c/o a "flare up". diffuse general pain to neck and right side. Associated with dull chest pain to left side worse with movement. The patient was seen in triage for the above Labs/imaging ordered to evaluate for a cause of this complaint. Vital signs reviewed, patient awake and alert in NAD.
--- NOTE | 2019-09-27 13:05 | XRay Report ---
CHEST 2 VIEWS INDICATION: Chest Pain. COMPARISON: 07/10/2019 FINDINGS: Support devices: None. Heart: Enlarged but unchanged compared to the previous exam. Pulmonary vasculature: Central vascular congestion. However the vessels are more distinct than on the last exam. Lungs/pleura: Mild bilateral perihilar interstitial opacities which may be chronic. No pulmonary cons olidation. No pleural effusion. No pneumothorax. Additional findings: None. IMPRESSION: 1. No acute findings. 2. Stable cardiomegaly and pulmonary venous hypertension. Signer Name: Bucky Pitts MD Signed: 09/27/2019 1:00 PM Workstation Name: [id number]
[2019-09-27] MEDS ORDERED: methylPREDNISolone Sod Succinate 125 MG/2 ML INJ IV ONE (15:28)
[2019-09-27] MEDS ORDERED: HYDROmorphone 1 MG/1 ML INJ IV ONE (15:28)
[2019-09-27] MEDS ORDERED: ONDANSETRON 4 MG/2 ML INJ IV ONE (15:28)
[2019-09-27] MEDS ORDERED: diphenhydrAMINE 50 MG/ML VIAL IV ONE (15:29)
--- NOTE | 2019-09-27 15:39 | Emergency Department Report ---
ED General Adult HPI - General Chief complaint: Pain General Stated complaint: LUPUS Time Seen by Provider: 09/27/19 11:47 Source: patient Mode of arrival: Wheelchair Limitations: No Limitations - History of Present Illness Initial comments: 29 YO Female with HTN, Nicotine Dependence, Lupus, OA, Cocaine Dependence [although states she had quit], Seizure Disorder, Asthma, Migraine Headache, ESRD on HD (T,R,Sa) presents to ED for generalized pain secondary to lupus flare for the past several days. Patient complains of pain to her bilateral arms, le gs, left-sided chest, and left shoulder. Pain is constant, 10/10 in intensity, worse with movement, no alleviating factors. Patient using icy hot at home without relief. She is not currently taking any other pain medication. She is compliant with her Paquenil. Her lupus doctor ([facility]) took her off her daily steroids in April. She is scheduled to follow up with them next month. Patient has been compliant with her dialysis. She denies cough, fever, or infectious symptoms. Pt makes urine once a day on average. Denies dysruria. [employer]: Dr. Freedman. Patient does not see a primary care doctor on a regular basis. - Related Data Previous Rx's Medication Instructions Recorded Last Taken Type Metoclopramide HCl [Reglan TAB] 5 mg PO TIDAC PRN #20 tablet 12/15/18 Unknown Rx Albuterol Sulfate [Proair 2 puff IH Q4H PRN #1 pump 02/17/19 Unknown Rx Respiclick] Sertraline [Zoloft] 25 mg PO QDAY tablet 02/17/19 Unknown Rx Clonidine HCl [Catapres] 0.3 mg PO TID #60 tablet 04/17/19 Unknown Rx Hydroxychloroquine [Plaquenil] 200 mg PO QDAY #30 tablet 04/17/19 Unknown Rx Phenytoin [Dilantin] 100 mg PO TID #90 capsule.er 04/17/19 Unknown Rx hydrALAZINE [Apresoline TAB] 100 mg PO TID #90 tab 04/17/19 Unknown Rx labetaloL [Labetalol 200mg TAB] 200 mg PO TID #60 tablet 04/17/19 Unknown Rx methOCARBAMOL [Robaxin TAB] 750 mg PO Q6HR PRN #60 tablet 09/22/19 Unknown Rx Albuterol INH(or & Nicu Only) 2 puff IH QID PRN #8.5 gram 09/19/19 Unknown Rx [ProAir HFA Inhaler] levETIRAcetam [Keppra TAB] 750 mg PO BID #60 tablet 09/19/19 Unknown Rx HYDROcodone/APAP 5-325 [[place] 1 each PO Q6HR PRN #14 tablet 09/27/19 Unknown Rx 5/325] Ondansetron [Zofran Odt] 4 mg PO Q8HR PRN #20 tab.rapdis 09/27/19 Unknown Rx diphenhydrAMINE [Benadryl CAP] 25 mg PO Q6HR PRN #20 capsule 09/27/19 Unknown Rx Allergies Allergy/AdvReac Type Severity Reaction Status Date / Time acetaminophen [From Percocet] Allergy Itching Verified 04/21/18 08:28 lisinopril Allergy Swelling Verified 04/21/18 08:28 metoprolol Allergy Unknown Verified 04/21/18 08:28 oxycodone [From Percocet] Allergy Itching Verified 04/21/18 08:28 oxycodone HCl [From Percocet] AdvReac Unknown Verified 04/21/18 08:28 ED Review of Systems ROS: Stated complaint: LUPUS Other details as noted in HPI Comment: All other systems reviewed and negative ED Past Medical Hx - Past Medical History Previous Medical History?: Yes Hx Hypertension: Yes Hx Congestive Heart Failure: Yes Hx Diabetes: Yes Hx Renal Disease: Yes (HD T,THUR,SAT) Hx Arthritis: Yes Hx Headaches / Migraines: Yes Hx Seizures: Yes Hx Asthma: Yes Hx COPD: Yes Hx HIV: No Additional medical history: Lupus - Surgical History Past Surgical History?: Yes Additional Surgical History: RIGHT ARM graft - Social History Smoking Status: Current Every Day Smoker Substance Use Type: None - Medications Home Medications: Home Medications Medication Instructions Recorded Confirmed Last Taken Type Metoclopramide HCl [Reglan TAB] 5 mg PO TIDAC PRN #20 tablet 12/15/18 09/18/19 Unknown Rx Albuterol Sulfate [Proair 2 puff IH Q4H PRN #1 pump 02/17/19 09/18/19 Unknown Rx Respiclick] Sertraline [Zoloft] 25 mg PO QDAY tablet 02/17/19 09/18/19 Unknown Rx Clonidine HCl [Catapres] 0.3 mg PO TID #60 tablet 04/17/19 09/18/19 Unknown Rx Hydroxychloroquine [Plaquenil] 200 mg PO QDAY #30 tablet 04/17/19 09/18/19 Unknown Rx Phenytoin [Dilantin] 100 mg PO TID #90 capsule.er 04/17/19 09/18/19 Unknown Rx hydrALAZINE [Apresoline TAB] 100 mg PO TID #90 tab 04/17/19 09/18/19 Unknown Rx labetaloL [Labetalol 200mg TAB] 200 mg PO TID #60 tablet 04/17/19 09/18/19 Unknown Rx methOCARBAMOL [Robaxin TAB] 750 mg PO Q6HR PRN #60 tablet 05/30/19 09/18/19 Unknown Rx Albuterol INH(or & Nicu Only) 2 puff IH QID PRN #8.5 gram 09/19/19 Unknown Rx [ProAir HFA Inhaler] levETIRAcetam [Keppra TAB] 750 mg PO BID #60 tablet 09/19/19 Unknown Rx HYDROcodone/APAP 5-325 [[place] 1 each PO Q6HR PRN #14 tablet 09/27/19 Unknown Rx 5/325] Ondansetron [Zofran Odt] 4 mg PO Q8HR PRN #20 tab.rapdis 09/27/19 Unknown Rx diphenhydrAMINE [Benadryl CAP] 25 mg PO Q6HR PRN #20 capsule 09/27/19 Unknown Rx ED Physical Exam - General Limitations: No Limitations - Other Other exam information: General: No limitations, patient is alert in no acute distress Head exam: Atraumatic, normocephalic Eyes exam: Normal appearance ENT: Moist mucous membrane Neck exam: Normal inspection, full range of motion, no meningismus nontender Respiratory exam: Clear to auscultation bilateral, no wheezes, rales, crackles. Reproducible left chest wall tenderness Cardiovascular: Normal rate and rhythm Abdomen: Soft, nondistended, and nontender, with normal bowel sounds, no rebound, or guarding Extremity: Generalized chest discomfort for pain. Limited movement of the shoulder secondary to pain. No leg edema, no warmth or erythema. Right arm dialysis access Back: Normal Inspection, full range of motion, no tenderness Neurologic: Alert, oriented x3, cranial nerves intact, no motor or sensory deficit Psychiatric: normal affect, normal mood Skin: Warm, dry, intact ED Course Vital Signs 09/27/19 09/27/19 09/27/19 11:41 14:54 17:01 Temperature 98.4 F Pulse Rate 95 H 109 H Respiratory 18 19 14 Rate Blood Pressure 179/118 178/115 O2 Sat by Pulse 100 97 89 Oximetry 09/27/19 09/27/19 09/27/19 17:15 17:30 18:41 Temperature Pulse Rate 96 H Respiratory 10 L 20 Rate Blood Pressure 181/118 186/128 179/109 O2 Sat by Pulse 90 98 Oximetry 09/27/19 09/27/19 09/27/19 18:45 18:49 19:00 Temperature Pulse Rate 96 H 96 H 90 Respiratory 21 15 Rate Blood Pressure 179/109 179/109 160/105 O2 Sat by Pulse 92 98 Oximetry 09/27/19 09/27/19 09/27/19 19:15 19:30 19:45 Temperature Pulse Rate 95 H Respiratory 21 17 13 Rate Blood Pressure 179/109 162/107 160/105 O2 Sat by Pulse 96 97 Oximetry 09/27/19 20:01 Temperature Pulse Rate Respiratory Rate Blood Pressure 160/105 O2 Sat by Pulse 97 Oximetry - Reevaluation(s) Reevaluation #1: 09/27/19 18:34 unable to establish IV access after multiple attempts there for patient given IM and by mouth medication. After Dilaudid 2 mg IM, by mouth Benadryl, by mouth prednisone patient states that her pain has improved. She now complains of some crampy lower abdominal pain thinks her menstrual cycle is starting soon. pt is noted to have some itching after receiving meds. This is a Benadryl provided. Patient also has not had her afternoon dose of her meds because she was in the ED therefore clonidine provided for her blood pressure. ED Medical Decision Making - Lab Data Result diagrams: 09/27/19 15:14 09/27/19 15:14 Lab Results 09/27/19 09/27/19 09/27/19 Range/Units 15:14 15:14 15:31 WBC 3.5 L (4.5-11.0) K/mm3 RBC 2.63 L (3.65-5.03) M/mm3 Hgb 8.4 L (10.1-14.3) gm/dl Hct 24.8 L (30.3-42.9) % MCV 94 (79-97) fl MCH 32 (28-32) pg MCHC 34 (30-34) % RDW 14.1 (13.2-15.2) % Plt Count 241 (140-440) K/mm3 Lymph % (Auto) 16.7 (13.4-35.0) % [place] % (Auto) 10.8 H (0.0-7.3) % Eos % (Auto) 1.8 (0.0-4.3) % Baso % (Auto) 0.5 (0.0-1.8) % Lymph # 0.6 L (1.2-5.4) K/mm3 [place] # 0.4 (0.0-0.8) K/mm3 Eos # 0.1 (0.0-0.4) K/mm3 Baso # 0.0 (0.0-0.1) K/mm3 Seg Neutrophils % 70.2 H (40.0-70.0) % Seg Neutrophils # 2.5 (1.8-7.7) K/mm3 Sodium 134 L (137-145) mmol/L Potassium 4.2 (3.6-5.0) mmol/L Chloride 98.8 (98-107) mmol/L Carbon Dioxide 19 L (22-30) mmol/L Anion Gap 20 mmol/L BUN 25 H (7-17) mg/dL Creatinine 8.5 H (0.7-1.2) mg/dL Estimated GFR 7 ml/min BUN/Creatinine Ratio 3 % Glucose 74 (65-100) mg/dL Calcium 9.0 (8.4-10.2) mg/dL Total Bilirubin 0.30 (0.1-1.2) mg/dL AST 12 (5-40) units/L ALT < 5 L (7-56) units/L Alkaline Phosphatase 116 (35-129) units/L Total Creatine Kinase (30-135) units/L Troponin T (0.00-0.029) ng/mL Total Protein 8.3 H (6.3-8.2) g/dL Albumin 2.9 L (3.9-5) g/dL Albumin/Globulin Ratio 0.5 % Triglycerides (2-149) mg/dL Cholesterol (50-199) mg/dL LDL Cholesterol Direct (50-130) mg/dL HDL Cholesterol (40-59) mg/dL Cholesterol/HDL Ratio % HCG, Qual Negative (Negative) 09/27/19 09/27/19 Range/Units 15:31 15:31 WBC (4.5-11.0) K/mm3 RBC (3.65-5.03) M/mm3 Hgb (10.1-14.3) gm/dl Hct (30.3-42.9) % MCV (79-97) fl MCH (28-32) pg MCHC (30-34) % RDW (13.2-15.2) % Plt Count (140-440) K/mm3 Lymph % (Auto) (13.4-35.0) % [place] % (Auto) (0.0-7.3) % Eos % (Auto) (0.0-4.3) % Baso % (Auto) (0.0-1.8) % Lymph # (1.2-5.4) K/mm3 [place] # (0.0-0.8) K/mm3 Eos # (0.0-0.4) K/mm3 Baso # (0.0-0.1) K/mm3 Seg Neutrophils % (40.0-70.0) % Seg Neutrophils # (1.8-7.7) K/mm3 Sodium (137-145) mmol/L Potassium (3.6-5.0) mmol/L Chloride (98-107) mmol/L Carbon Dioxide (22-30) mmol/L Anion Gap mmol/L BUN (7-17) mg/dL Creatinine (0.7-1.2) mg/dL Estimated GFR ml/min BUN/Creatinine Ratio % Glucose (65-100) mg/dL Calcium (8.4-10.2) mg/dL Total Bilirubin (0.1-1.2) mg/dL AST (5-40) units/L ALT (7-56) units/L Alkaline Phosphatase (35-129) units/L Total Creatine Kinase 48 (30-135) units/L Troponin T 0.069 H (0.00-0.029) ng/mL Total Protein (6.3-8.2) g/dL Albumin (3.9-5) g/dL Albumin/Globulin Ratio % Triglycerides 87 (2-149) mg/dL Cholesterol 104 (50-199) mg/dL LDL Cholesterol Direct 52 (50-130) mg/dL HDL Cholesterol 38 L (40-59) mg/dL Cholesterol/HDL Ratio 2.73 % HCG, Qual (Negative) - EKG Data -: EKG Interpreted by Me EKG shows normal: sinus rhythm, ST-T waves (no stemi) Rate: tachycardia (106) - Radiology Data Radiology results: report reviewed CHEST 2 VIEWS INDICATION: Chest Pain. COMPARISON: 07/10/2019 FINDINGS: Support devices: None. Heart: Enlarged but unchanged compared to the previous exam. Pulmonary vasculature: Central vascular congestion. However the vessels are more distinct than on the last exam. Lungs/pleura: Mild bilateral perihilar interstitial opacities which may be chronic. No pulmonary consolidation. No pleural effusion. No pneumothorax. Additional findings: None. IMPRESSION: 1. No acute findings. 2. Stable cardiomegaly and pulmonary venous hypertension. - Medical Decision Making Patient with generalized pain which she states is typical of her lupus flare. She has been on steroids chronically in the past but they were discontinued by her car usher in April. Patient treated in the ED with IM Dilaudid, Benadryl, Zofran, as well as prednisone. Improvement in symptoms prior to disch arge. Elevated blood pressure in ED likely secondary to patient missing her afternoon blood pressure medication. BP trending downward after Clonidine. Patient does not continue to complain of chest pain. Mild elevation of troponin noted but patient has chronic troponin elevation secondary to end-stage renal disease. They should be discharged home to go to her dialysis in the a.m. Patient then she can tolerate [place] although she reports oxycodone allergy (itching). pt provided snacks in the ed prior to d/c - Differential Diagnosis chronic pain, lupus, infection, noncompliance Critical Care Time: No Critical care attestation.: If time is entered above; I have spent that time in minutes in the direct care of this critically ill patient, excluding procedure time. ED Disposition Clinical Impression: Lupus, Arthralgia of multiple sites, ESRD on dialysis, Uncontrolled hypertension Disposition: TO HOME OR SELFCARE Is pt being admited?: No Does the pt Need Aspirin: No Condition: Stable Instructions: Musculoskeletal Pain (ED), End-Stage Kidney Disease (ED), Hypertension (ED) Additional Instructions: Take the medication as prescribed. Follow-up with your doctor or with the doctor provided. Return is symptoms worsen as indicated by your discharge instructions. Prescriptions: diphenhydrAMINE [Benadryl CAP] 25 mg PO Q6HR PRN #20 capsule PRN Reason: Itching HYDROcodone/APAP 5-325 [[place] 5/325] 1 each PO Q6HR PRN #14 tablet PRN Reason: Pain Ondansetron [Zofran Odt] 4 mg PO Q8HR PRN #20 tab.rapdis PRN Reason: Nausea And Vomiting Referrals: PRIMARY CARE,MD [Primary Care Provider] - 3-5 Days your, car usher [Other] - 3-5 Days Time of Disposition: 20:30
[2019-09-27 16:04] LABS: Basophils % (Auto) 0.5 % (0.0-1.8); Eosinophils # (Auto) 0.1 K/mm3 (0.0-0.4); Eosinophils % (Auto) 1.8 % (0.0-4.3); Hematocrit 24.8 % (30.3-42.9); Hemoglobin 8.4 gm/dl (10.1-14.3); Lymphocytes # (Auto) 0.6 K/mm3 (1.2-5.4); Lymphocytes % (Auto) 16.7 % (13.4-35.0); Mean Corpuscular HGB Conc 34 % (30-34); Mean Corpuscular Volume 94 fl (79-97); Monocytes # (Auto) 0.4 K/mm3 (0.0-0.8); Monocytes % (Auto) 10.8 % (0.0-7.3); Platelet Count 241 K/mm3 (140-440); Red Blood Count 2.63 M/mm3 (3.65-5.03); Red Cell Distribution Width 14.1 % (13.2-15.2)
[2019-09-27 16:16] LABS: Albumin 2.9 g/dL (3.9-5); BUN/Creatinine Ratio 3; Blood Urea Nitrogen 25 mg/dL (7-17); Hemolysis Index 6
[2019-09-27 16:28] LABS: Alanine Aminotransferase < 5 units/L (7-56)
[2019-09-27 16:40] LABS: Chol/HDL Ratio 2.73 %
[2019-09-27] MEDS ORDERED: diphenhydrAMINE 25 MG CAP PO ONE ×2 (16:45→18:33)
[2019-09-27] MEDS ORDERED: predniSONE 20 MG TAB PO ONE (16:45)
[2019-09-27] MEDS ORDERED: ONDANSETRON 4 MG ODT TAB PO ONE (16:45)
[2019-09-27] MEDS ORDERED: HYDROmorphone 2 MG/1 ML INJ IM ONE (16:45)
[2019-09-27] MEDS ORDERED: cloNIDine 0.1 MG TAB PO ONE (18:33)
[2019-09-27 22:14] VITALS: BP 151/97
== END 2019-09-27 22:13 | disposition home or self-care (01) ==
LOC: ED 11:11
DX: I13.2 Hypertensive heart and chronic kidney disease with heart failure and with stage 5 chronic kidney disease, or end stage renal disease (principal); E11.22 Type 2 diabetes mellitus with diabetic chronic kidney disease; N18.6 End stage renal disease; I50.9 Heart failure, unspecified; G43.919 Migraine, unspecified, intractable, without status migrainosus; J44.9 Chronic obstructive pulmonary disease, unspecified; M19.90 Unspecified osteoarthritis, unspecified site; F17.200 Nicotine dependence, unspecified, uncomplicated; Z98.890 Other specified postprocedural states; Z79.899 Other long term (current) drug therapy; Z88.8 Allergy status to other drugs, medicaments and biological substances
CPT/HCPCS: 36415; 71046; 80053; 80061; 82550; 84484; 84703; 85025; 93005; 93010; 96372; 99284; J1170; J7512; J1200; J2405; J2930; Q0162

== ENCOUNTER 2019-09-29 21:03 | Emergency (ER) | payer MEDICARE ==
[2019-09-29] MEDS ORDERED: BUTALB/ACETAMINOPHEN/CAFFEINE TAB PO ONE (22:10)
[2019-09-29] MEDS ORDERED: ONDANSETRON 4 MG ODT TAB PO ONE (22:11)
--- NOTE | 2019-09-29 22:13 | Emergency Department Report ---
HPI - General Chief Complaint: Seizure Time Seen by Provider: 09/29/19 21:54 - HPI HPI: Room 9 The patient is a 29-year-old female presenting with chief complaint of seizure. The patient has a history of seizures associated with taking her medication d aily. Patient reportedly had 2 seizures today. Patient now complains of headache nausea and vomiting. Patient also complains of left shoulder pain. Location: [See above] Duration: [See above] Quality: [See above] Severity: [See above] Timing: [See above] Context: [See above] Modifying factors: [See above] Associated signs and symptoms: [see above] ED Past Medical Hx - Past Medical History Previous Medical History?: Yes Hx Hypertension: Yes Hx Congestive Heart Failure: Yes Hx Diabetes: Yes Hx Renal Disease: Yes (HD T,THUR,SAT) Hx Arthritis: Yes Hx Headaches / Migraines: Yes Hx Seizures: Yes Hx Asthma: Yes Hx COPD: Yes Additional medical history: Lupus - Surgical History Past Surgical History?: Yes Additional Surgical History: RIGHT ARM graft - Family History Family history: no significant - Social History Smoking Status: Unknown if ever smoked Substance Use Type: None - Medications Home Medications: Home Medications Medication Instructions Recorded Confirmed Last Taken Type Metoclopramide HCl [Reglan TAB] 5 mg PO TIDAC PRN #20 tablet 12/15/18 09/18/19 Unknown Rx Albuterol Sulfate [Proair 2 puff IH Q4H PRN #1 pump 02/17/19 09/18/19 Unknown Rx Respiclick] Sertraline [Zoloft] 25 mg PO QDAY tablet 02/17/19 09/18/19 Unknown Rx Clonidine HCl [Catapres] 0.3 mg PO TID #60 tablet 04/17/19 09/18/19 Unknown Rx Hydroxychloroquine [Plaquenil] 200 mg PO QDAY #30 tablet 04/17/19 09/18/19 Unknown Rx hydrALAZINE [Apresoline TAB] 100 mg PO TID #90 tab 04/17/19 09/18/19 Unknown Rx labetaloL [Labetalol 200mg TAB] 200 mg PO TID #60 tablet 04/17/19 09/18/19 Unknown Rx methOCARBAMOL [Robaxin TAB] 750 mg PO Q6HR PRN #60 tablet 05/30/19 09/18/19 Unknown Rx Albuterol INH(or & Nicu Only) 2 puff IH QID PRN #8.5 gram 09/19/19 Unknown Rx [ProAir HFA Inhaler] HYDROcodone/APAP 5-325 [[place] 1 each PO Q6HR PRN #14 tablet 09/27/19 Unknown Rx 5/325] Ondansetron [Zofran Odt] 4 mg PO Q8HR PRN #20 tab.rapdis 09/27/19 Unknown Rx diphenhydrAMINE [Benadryl CAP] 25 mg PO Q6HR PRN #20 capsule 09/27/19 Unknown Rx Butalb/Acetamin/Caff 50-325-40 2 tab PO Q8HR PRN #14 tablet 09/30/19 Unknown Rx [Fioricet 50-325-40] Ibuprofen [Motrin 800 MG tab] 800 mg PO Q8HR PRN #20 tablet 09/30/19 Unknown Rx Phenytoin [Dilantin] 100 mg PO TID #90 capsule.er 09/30/19 Unknown Rx levETIRAcetam [Keppra TAB] 750 mg PO BID #60 tablet 09/30/19 Unknown Rx ED Review of Systems ROS: Stated complaint: SEIZURE Other details as noted in HPI Constitutional: no symptoms reported Eyes: denies: eye pain ENT: denies: throat pain Respiratory: no symptoms reported Cardiovascular: denies: chest pain Endocrine: no symptoms reported Gastrointestinal: nausea, vomiting Musculoskeletal: arthralgia Neurological: headache, other (seizure) Physical Exam - Physical Exam Vital Signs: Vital Signs 09/29/19 21:40 Pulse Rate 97 H Respiratory 16 Rate Blood Pressure 172/117 Blood Pressure 172/117 [Left] O2 Sat by Pulse 100 Oximetry Physical Exam: GENERAL: The patient is well-developed well-nourished female lying on stretcher appearing to be in moderate discomfort. [] HEENT: Normocephalic. Atraumatic. Extraocular motions are intact. Patient has moist mucous membranes. NECK: Supple. Trachea midline CHEST/LUNGS: Clear to auscultation. There is no respiratory distress noted. HEART/CARDIOVASCULAR: Regular. There is no tachycardia. There is no gallop rub or murmur. ABDOMEN: Abdomen is soft, nontender. Patient has normal bowel sounds. There is no abdominal distention. SKIN: There is no rash. There is no edema. There is no diaphoresis. NEURO: The patient is awake, alert, and oriented. The patient is cooperative. The patient has no focal neurologic deficits. The patient has normal speech. Cranial nerves II through XII grossly intact, no drift MUSCULOSKELETAL: There is no evidence of acute injury. ED Course Vital Signs 09/29/19 21:40 Pulse Rate 97 H Respiratory 16 Rate Blood Pressure 172/117 Blood Pressure 172/117 [Left] O2 Sat by Pulse 100 Oximetry ED Medical Decision Making - Lab Data Result diagrams: 09/29/19 22:54 09/29/19 22:54 Laboratory Tests 09/29/19 09/29/19 09/29/19 22:54 22:54 22:54 WBC 3.4 L RBC 2.83 L Hgb 9.0 L Hct 27.3 L MCV 96 MCH 32 MCHC 33 RDW 15.1 Plt Count 102 L Lymph % (Auto) [place] % (Auto) [place] Eos % (Auto) [place] Baso % (Auto) [place] Lymph # [place] # [place] Eos # [place] Baso # [place] Seg Neutrophils % [place] Seg Neutrophils # [place] Sodium 135 L Potassium 4.7 Chloride 97.2 L Carbon Dioxide 22 Anion Gap 21 BUN 17 Creatinine 7.0 H Estimated GFR 8 BUN/Creatinine Ratio 2 Glucose 82 Calcium 8.8 Magnesium 2.20 Total Bilirubin 0.20 AST 14 ALT < 5 L Alkaline Phosphatase 118 Total Protein 8.0 Albumin 3.4 L Albumin/Globulin Ratio 0.7 Lipase 25 HCG, Qual Phenytoin 09/29/19 09/29/19 22:54 22:54 WBC RBC Hgb Hct MCV MCH MCHC RDW Plt Count Lymph % (Auto) [place] % (Auto) Eos % (Auto) Baso % (Auto) Lymph # [place] # Eos # Baso # Seg Neutrophils % Seg Neutrophils # Sodium Potassium Chloride Carbon Dioxide Anion Gap BUN Creatinine Estimated GFR BUN/Creatinine Ratio Glucose Calcium Magnesium Total Bilirubin AST ALT Alkaline Phosphatase Total Protein Albumin Albumin/Globulin Ratio Lipase HCG, Qual Negative Phenytoin 2.5 L - Radiology Data Radiology results: report reviewed (left shoulder x-ray), image reviewed (left shoulder x-ray) interpreted by me: Left Shoulder x-ray-no acute fracture. No dislocation [facility] [address] [place] [address] XRay Report Signed Patient: SANDRA DICKEY MR#: [id number] : 1990 Acct:[id number] Age/Sex: 29 / F ADM Date: 09/29/19 Loc: ED Attending Dr: Ordering Physician: ISIAH URBANO MD Date of Service: 09/29/19 Procedure(s): XR shoulder 2+V LT Accession Number(s): [id number] cc: ISIAH URBANO MD Fluoro Time In Minutes: LEFT SHOULDER 3 VIEWS INDICATION: pain after seizure. COMPARISON: No relevant prior imaging study available. FINDINGS: No acute fracture or dislocation is seen. There is a stent in the left axillary region with adjacent clips. No significant degenerative changes. IMPRESSION: 1. No acute findings. Signer Name: Kamari Raymond MD Signed: 09/30/2019 12:48 AM Workstation Name: [id number] Transcribed By: DANIEL Dictated By: Kamari Raymond MD Electronically Authenticated By: Kamari Raymond MD Signed Date/Time: 09/30/1946 DD/ TD/TT: - Differential Diagnosis seizure, hypertensive urgency, ICH, Critical care attestation.: If time is entered above; I have spent that time in minutes in the direct care of this critically ill patient, excluding procedure time. ED Disposition Clinical Impression: Seizure, Contusion of left shoulder Disposition: DC-01 TO HOME OR SELFCARE Is pt being admited?: No Does the pt Need Aspirin: No Condition: Stable Instructions: Epilepsy (ED) Additional Instructions: Return to the emergency department should you develop worsening symptoms, inability to tolerate food or liquids, high fever or any other concerns Prescriptions: Phenytoin [Dilantin] 100 mg PO TID #90 capsule.er Butalb/Acetamin/Caff 50-325-40 [Fioricet 50-325-40] 2 tab PO Q8HR PRN #14 tablet PRN Reason: Headache levETIRAcetam [Keppra TAB] 750 mg PO BID #60 tablet Ibuprofen [Motrin 800 MG tab] 800 mg PO Q8HR PRN #20 tablet PRN Reason: Pain, Moderate (4-6) Referrals: MCKINLEY DE LA CRUZ MD [Staff Physician] - 3-5 Days Time of Disposition: 01:09
[2019-09-29] MEDS ORDERED: cloNIDine 0.2 MG TAB PO ONE (22:20)
[2019-09-29] MEDS ORDERED: LORazepam 2 MG/ML VIAL IV ONE (23:37)
[2019-09-29 23:39] LABS: Albumin 3.4 g/dL (3.9-5); BUN/Creatinine Ratio 2; Blood Urea Nitrogen 17 mg/dL (7-17); Calcium 8.8 mg/dL (8.4-10.2); Hemolysis Index 33
[2019-09-29 23:44] LABS: Alanine Aminotransferase < 5 units/L (7-56)
[2019-09-29 23:46] LABS: Hematocrit 27.3 % (30.3-42.9); Mean Corpuscular HGB Conc 33 % (30-34); Mean Corpuscular Volume 96 fl (79-97); Red Blood Count 2.83 M/mm3 (3.65-5.03); Red Cell Distribution Width 15.1 % (13.2-15.2)
[2019-09-29] MEDS ORDERED: diphenhydrAMINE 50 MG/ML VIAL IV ONE (23:58)
[2019-09-29] MEDS ORDERED: FOSPHENYTOIN 1,000 MG.PE in SODIUM CHLORIDE 0.9% 100 ML IV ONE (23:59)
[2019-09-29] MEDS ORDERED: levETIRAcetam 1000 MG/NS 0.75% 1,000 MG/100 ML BAG IV ONE (23:59)
[2019-09-29] MEDS ORDERED: diphenhydrAMINE 50 MG/ML VIAL ONE (23:59)
[2019-09-30 00:09] LABS: Platelet Count 102 K/mm3 (140-440)
--- NOTE | 2019-09-30 00:53 | XRay Report ---
LEFT SHOULDER 3 VIEWS INDICATION: pain after seizure. COMPARISON: No relevant prior imaging study available. FINDINGS: No acute fracture or dislocation is seen. There is a stent in the left axillary region with adjacent clips. No significant degenerative changes. IMPRESSION: 1. No acute findings. Signer Name: Kamari Raymond MD Signed: 09/30/2019 12:48 AM Workstation Name: [id number]
[2019-09-30 02:40] VITALS: BP 123/81
[2019-09-30 03:22] LABS: Total Cells Counted 100
[2019-09-30 03:23] LABS: Basophils % (Manual) 0 % (0.0-1.8)
[2019-09-30 03:26] LABS: Schistocytes Few
[2019-09-30 03:27] LABS: Ovalocytes Few; Target Cells Rare
[2019-09-30 03:28] LABS: Platelet Estimate Cons
== END 2019-09-30 02:05 | disposition home or self-care (01) ==
LOC: ED 21:03
DX: S40.012A Contusion of left shoulder, initial encounter (principal); R56.9 Unspecified convulsions; E11.22 Type 2 diabetes mellitus with diabetic chronic kidney disease; I13.2 Hypertensive heart and chronic kidney disease with heart failure and with stage 5 chronic kidney disease, or end stage renal disease; N18.6 End stage renal disease; Z99.2 Dependence on renal dialysis; Z79.899 Other long term (current) drug therapy; Z88.6 Allergy status to analgesic agent; Z88.1 Allergy status to other antibiotic agents; X58.XXXA Exposure to other specified factors, initial encounter; Y93.89 Activity, other specified; Y92.89 Other specified places as the place of occurrence of the external cause; Y99.8 Other external cause status
CPT/HCPCS: 36415; 73030; 80053; 80185; 83690; 83735; 84703; 85007; 85025; 96365; 96375; 99284; J1200; J1953; J2060; Q2009; Q0162

== ENCOUNTER 2019-10-03 07:30 | Observation (INO) | payer MEDICARE ==
[2019-10-03 10:32] LABS: Basophils % (Auto) 0.6 % (0.0-1.8); Eosinophils # (Auto) 0.1 K/mm3 (0.0-0.4); Eosinophils % (Auto) 1.6 % (0.0-4.3); Hematocrit 27.1 % (30.3-42.9); Hemoglobin 8.9 gm/dl (10.1-14.3); Lymphocytes # (Auto) 0.5 K/mm3 (1.2-5.4); Lymphocytes % (Auto) 14.8 % (13.4-35.0); Mean Corpuscular HGB Conc 33 % (30-34); Mean Corpuscular Volume 95 fl (79-97); Monocytes # (Auto) 0.3 K/mm3 (0.0-0.8); Monocytes % (Auto) 9.1 % (0.0-7.3); Platelet Count 207 K/mm3 (140-440); Red Blood Count 2.84 M/mm3 (3.65-5.03); Red Cell Distribution Width 14.9 % (13.2-15.2)
[2019-10-03 10:50] LABS: Albumin 3.1 g/dL (3.9-5); BUN/Creatinine Ratio 2; Blood Urea Nitrogen 9 mg/dL (7-17); Calcium 8.8 mg/dL (8.4-10.2); Hemolysis Index 141
[2019-10-03 10:56] LABS: Alanine Aminotransferase < 5 units/L (7-56)
[2019-10-03] MEDS ORDERED: ONDANSETRON 4 MG/2 ML INJ IV ONE (11:03)
--- NOTE | 2019-10-03 11:07 | Emergency Department Report ---
<SURY NAIR - Last Filed: 10/03/19 17:56> ED Abdominal Pain HPI - General Chief Complaint: Abdominal Pain Stated Complaint: CHEST PAIN Time Seen by Provider: 10/03/19 10:51 - Related Data Previous Rx's Medication Instructions Recorded Last Taken Type Metoclopramide HCl [Reglan TAB] 5 mg PO TIDAC PRN #20 tablet 12/15/18 Unknown Rx Albuterol Sulfate [Proair 2 puff IH Q4H PRN #1 pump 02/17/19 Unknown Rx Respiclick] Sertraline [Zoloft] 25 mg PO QDAY tablet 02/17/19 Unknown Rx Clonidine HCl [Catapres] 0.3 mg PO TID #60 tablet 04/17/19 Unknown Rx Hydroxychloroquine [Plaquenil] 200 mg PO QDAY #30 tablet 04/17/19 Unknown Rx hydrALAZINE [Apresoline TAB] 100 mg PO TID #90 tab 04/17/19 Unknown Rx labetaloL [Labetalol 200mg TAB] 200 mg PO TID #60 tablet 04/17/19 Unknown Rx methOCARBAMOL [Robaxin TAB] 750 mg PO Q6HR PRN #60 tablet 05/30/19 Unknown Rx Albuterol INH(or & Nicu Only) 2 puff IH QID PRN #8.5 gram 09/19/19 Unknown Rx [ProAir HFA Inhaler] HYDROcodone/APAP 5-325 [[place] 1 each PO Q6HR PRN #14 tablet 09/27/19 Unknown Rx 5/325] Ondansetron [Zofran Odt] 4 mg PO Q8HR PRN #20 tab.rapdis 09/27/19 Unknown Rx diphenhydrAMINE [Benadryl CAP] 25 mg PO Q6HR PRN #20 capsule 09/27/19 Unknown Rx Butalb/Acetamin/Caff 50-325-40 2 tab PO Q8HR PRN #14 tablet 09/30/19 Unknown Rx [Fioricet 50-325-40] Ibuprofen [Motrin 800 MG tab] 800 mg PO Q8HR PRN #20 tablet 09/30/19 Unknown Rx Phenytoin [Dilantin] 100 mg PO TID #90 capsule.er 09/30/19 Unknown Rx levETIRAcetam [Keppra TAB] 750 mg PO BID #60 tablet 09/30/19 Unknown Rx Ondansetron [Zofran Odt] 4 mg PO Q8HR PRN #14 tab.rapdis 10/03/19 Unknown Rx Allergies Allergy/AdvReac Type Severity Reaction Status Date / Time acetaminophen [From Percocet] Allergy Itching Verified 04/21/18 08:28 lisinopril Allergy Swelling Verified 04/21/18 08:28 metoprolol Allergy Unknown Verified 04/21/18 08:28 oxycodone [From Percocet] Allergy Itching Verified 04/21/18 08:28 oxycodone HCl [From Percocet] AdvReac Unknown Verified 04/21/18 08:28 ED Past Medical Hx - Medications Home Medications: Home Medications Medication Instructions Recorded Confirmed Last Taken Type Metoclopramide HCl [Reglan TAB] 5 mg PO TIDAC PRN #20 tablet 12/15/18 10/03/19 Unknown Rx Albuterol Sulfate [Proair 2 puff IH Q4H PRN #1 pump 02/17/19 10/03/19 Unknown Rx Respiclick] Sertraline [Zoloft] 25 mg PO QDAY tablet 02/17/19 10/03/19 Unknown Rx Clonidine HCl [Catapres] 0.3 mg PO TID #60 tablet 04/17/19 10/03/19 Unknown Rx Hydroxychloroquine [Plaquenil] 200 mg PO QDAY #30 tablet 04/17/19 10/03/19 Unknown Rx hydrALAZINE [Apresoline TAB] 100 mg PO TID #90 tab 04/17/19 10/03/19 Unknown Rx labetaloL [Labetalol 200mg TAB] 200 mg PO TID #60 tablet 04/17/19 10/03/19 Unknown Rx methOCARBAMOL [Robaxin TAB] 750 mg PO Q6HR PRN #60 tablet 05/30/19 10/03/19 Unknown Rx Albuterol INH(or & Nicu Only) 2 puff IH QID PRN #8.5 gram 09/19/19 10/03/19 Unknown Rx [ProAir HFA Inhaler] HYDROcodone/APAP 5-325 [[place] 1 each PO Q6HR PRN #14 tablet 09/27/19 10/03/19 Unknown Rx 5/325] Ondansetron [Zofran Odt] 4 mg PO Q8HR PRN #20 tab.rapdis 09/27/19 10/03/19 Unknown Rx diphenhydrAMINE [Benadryl CAP] 25 mg PO Q6HR PRN #20 capsule 09/27/19 10/03/19 Unknown Rx Butalb/Acetamin/Caff 50-325-40 2 tab PO Q8HR PRN #14 tablet 09/30/19 10/03/19 Unknown Rx [Fioricet 50-325-40] Ibuprofen [Motrin 800 MG tab] 800 mg PO Q8HR PRN #20 tablet 09/30/19 10/03/19 Unknown Rx Phenytoin [Dilantin] 100 mg PO TID #90 capsule.er 09/30/19 10/03/19 Unknown Rx levETIRAcetam [Keppra TAB] 750 mg PO BID #60 tablet 09/30/19 10/03/19 Unknown Rx Ondansetron [Zofran Odt] 4 mg PO Q8HR PRN #14 tab.rapdis 10/03/19 Unknown Rx ED Medical Decision Making - Lab Data Result diagrams: 10/03/19 10:06 10/03/19 10:06 Lab Results 10/03/19 10/03/19 10/03/19 Range/Units 10:06 10:06 12:02 WBC 3.4 L (4.5-11.0) K/mm3 RBC 2.84 L (3.65-5.03) M/mm3 Hgb 8.9 L (10.1-14.3) gm/dl Hct 27.1 L (30.3-42.9) % MCV 95 (79-97) fl MCH 31 (28-32) pg MCHC 33 (30-34) % RDW 14.9 (13.2-15.2) % Plt Count 207 (140-440) K/mm3 Lymph % (Auto) 14.8 (13.4-35.0) % Island % (Auto) 9.1 H (0.0-7.3) % Eos % (Auto) 1.6 (0.0-4.3) % Baso % (Auto) 0.6 (0.0-1.8) % Lymph # 0.5 L (1.2-5.4) K/mm3 Island # 0.3 (0.0-0.8) K/mm3 Eos # 0.1 (0.0-0.4) K/mm3 Baso # 0.0 (0.0-0.1) K/mm3 Seg Neutrophils % 73.9 H (40.0-70.0) % Seg Neutrophils # 2.5 (1.8-7.7) K/mm3 Sodium 135 L (137-145) mmol/L Potassium 5.0 (3.6-5.0) mmol/L Chloride 97.7 L (98-107) mmol/L Carbon Dioxide 24 (22-30) mmol/L Anion Gap 18 mmol/L BUN 9 (7-17) mg/dL Creatinine 5.3 H (0.7-1.2) mg/dL Estimated GFR 12 ml/min BUN/Creatinine Ratio 2 % Glucose 71 (65-100) mg/dL Calcium 8.8 (8.4-10.2) mg/dL Total Bilirubin 0.30 (0.1-1.2) mg/dL AST 23 (5-40) units/L ALT < 5 L (7-56) units/L Alkaline Phosphatase 118 (35-129) units/L Total Protein 8.4 H (6.3-8.2) g/dL Albumin 3.1 L (3.9-5) g/dL Albumin/Globulin Ratio 0.6 % HCG, Qual Negative (Negative) - Radiology Data Ordering Physician: RAVIN WONG Date of Service: 10/03/19 Procedure(s): CT head/brain wo con Accession Number(s): [id number] cc: RAVIN WONG CT head/brain wo con INDICATION / CLINICAL INFORMATION: 29 years Female; AMS. TECHNIQUE: Routine CT head without contrast. All CT scans at this location are performed using CT dose reduction for ALARA by means of automated exposure control. COMPARISON: None. FINDINGS: BRAIN / INTRACRANIAL CONTENTS: No acute hemorrhage, mass effect, midline shift, hydrocephalus, or acute, large territorial infarct. No chronic infarct or atrophy appreciated. No significant white m atter abnormality. CRANIOCERVICAL JUNCTION: No significant abnormality. ORBITS: No significant abnormality of visualized orbits. SINUSES / MASTOIDS: No significant abnormality the visualized paranasal sinuses or mastoid air cells. ADDITIONAL FINDINGS: None. IMPRESSION: 1. No focal mass, hemorrhage, hydrocephalus, or acute, large territorial infarct. Signer Name: René Workman MD, III Signed: 10/03/2019 4:13 PM Workstation Name: [id number] Ordering Physician: RAVIN WONG Date of Service: 10/03/19 Procedure(s): CT abdomen pelvis wo con Accession Number(s): [id number] cc: RAVIN WONG CT ABDOMEN AND PELVIS WITHOUT CONTRAST INDICATION: ABDOMINAL PAIN CONTRAST: Without IV COMPARISON: 04/16/[address] scans at this location are performed using CT dose reduction for ALARA by means of automated exposure control. FINDINGS: No focal bony lesions are seen but the trabecular pattern is unusual suggesting osteomalacia. This is not significantly changed from prior study however. Heart is enlarged, not significantly changed but certainly unusual for the patient's age. Increased interstitial markings are seen in the lung bases which are mildly more prominent and may suggest mild interstitial edema. Mild left basilar atelectatic changes are seen. No significant abdominal wall hernia is seen. No pneumoperitoneum is noted. Liver is significantly enlarged in volume and has a length mildly abnormal at 19.3 cm. Spleen is not significantly enlarged. I do not see significant fatty infiltration and no focal hepatic masses are seen. No biliary dilatation is noted. No splenic lesions are obvious. Gallbladder shows a small gallstone. No definite wall thickening is seen though artifact in this area makes evaluation difficult. Pancreas shows no definite inflammation or masses. There appears to be moderate adenopathy in the retroperitoneum which is more obvious than on prior study. Definition is poor due to significant artifact on the study with individual nodes difficult to delineate well. There is also a suggestion of right common iliac adenopathy. I do not definitely see mesenteric adenopathy. Moderate amount of fluid is seen in the cul-de-sac of the pelvis which is not clearly organized and appears to be within the peritoneal cavity. A right ovarian complex cyst is seen measuring 2.7 cm. Appendix appears within normal limits. No evidence of bowel obstruction is seen. No obvious focal bowel lesions or inflammatory changes are seen. Mild diffuse subcutaneous edema is noted. Both kidneys are moderately atrophic similar to prior study. Small probable cysts are seen in each kidney. Calcifications in both renal bailee appear probably to be vascular rather than renal calculi though this cannot be fully excluded. I do not see obstructive change however. No ureteral calculi or dilatation are seen. Urinary bladder is poorly distended and difficult to evaluate. IMPRESSION: 1. Cardiomegaly in a 29-year-old patient with possible interstitial pulmonary edema 2. Hepatomegaly without obvious focal lesion and not on the basis of fatty infiltration. I do not see splenomegaly however. 3. Moderate retroperitoneal lymphadenopathy and mild pelvic lymphadenopathy 4. Right ovarian complex cyst and moderate free fluid in the pelvis 5. Moderate bilateral renal atrophy without obstructive change. For the patient's age, unusual bilateral renal hilar vascular calcifications though I do not see significant central atherosclerotic calcification. 6. Possible mild anasarca. Signer Name: Feliciano Taylor MD Signed: 10/03/2019 4:29 PM Workstation Name: [id number] [id number] - Medical Decision Making Review of the patient's past medical history reviewed multiple CT abdomen and pelvis as this patient and the patient has had ascites and some free fluid and occasional ovarian cysts in the past but has never had a moderate amount of ret roperitoneal lymphadenopathy or pelvic lymphadenopathy. Patient per my exam before admission is tender in her abdomen. The patient has some mild guarding on palpation of the abdomen. There is no rebound tenderness. Patient is to be admitted to the hospitalist service under observation status. Dr. Barrera with [facility] and Dr Garcia with general surgery has been consulted as well at 1550. Both state they will see the patient in the hospital review her films. ED Disposition Clinical Impression: Retroperitoneal lymphadenopathy Abdominal pain Qualifiers: Abdominal location: generalized Qualified Code(s): R10.84 - Generalized abdominal pain Nausea & vomiting Qualifiers: Vomiting type: unspecified Vomiting Intractability: non-intractable Qualified Code(s): R11.2 - Nausea with vomiting, unspecified Disposition: OP ADMIT IP TO THIS HOSP Is pt being admited?: Yes Does the pt Need Aspirin: No Condition: Stable Time of Disposition: 17:58 <RAVIN WONG - Last Filed: 10/04/19 09:16> ED Abdominal Pain HPI - General Source: patient Mode of arrival: Wheelchair Limitations: No Limitations - History of Present Illness Initial Comments: Patient is 29 years old female with history of end-stage renal disease on hemodialysis. Patient presented to the ER complaining of diffuse abdominal pain, crampy in nature associated with nausea and vomiting. Patient stated that she is unable to keep anything down. Patient stated that she had dialysis yesterday. Patient is also complaining of headache. Patient denied any weakness, numbness or tingling sensation. Patient stated that she did not have any fever or chills recently. MD Complaint: abdominal pain -: Last night Location: diffuse ED Review of Systems ROS: Stated complaint: CHEST PAIN Other details as noted in HPI Comment: All other systems reviewed and negative Constitutional: denies: chills, fever Respiratory: denies: cough, shortness of breath, SOB with exertion, SOB at rest, wheezing Cardiovascular: denies: chest pain, palpitations Gastrointestinal: abdominal pain, nausea, vomiting. denies: diarrhea, constipation, hematemesis, melena, hematochezia Genitourinary: denies: urgency, dysuria Musculoskeletal: denies: back pain Neurological: headache. denies: weakness, numbness, paresthesias, confusion, abnormal gait ED Past Medical Hx - Past Medical History Previous Medical History?: Yes Hx Hypertension: Yes Hx Congestive Heart Failure: Yes Hx Diabetes: Yes Hx Renal Disease: Yes (HD T,THUR,SAT) Hx Arthritis: Yes Hx Headaches / Migraines: Yes Hx Seizures: Yes Hx Asthma: Yes Hx COPD: Yes Hx HIV: No Additional medical history: Lupus - Surgical History Past Surgical History?: Yes Additional Surgical History: RIGHT ARM graft - Social History Smoking Status: Unknown if ever smoked Substance Use Type: None ED Physical Exam - General Limitations: No Limitations General appearance: alert, in no apparent distress - Head Head exam: Present: atraumatic, normocephalic, normal inspection - Eye Eye exam: Present: normal appearance, PERRL - ENT ENT exam: Present: normal exam, normal orophraynx, mucous membranes moist - Neck Neck exam: Present: normal inspection, full ROM. Absent: tenderness, meningismus, lymphadenopathy, thyromegaly - Respiratory Respiratory exam: Present: normal lung sounds bilaterally - Cardiovascular Cardiovascular Exam: Present: regular rate, normal rhythm, normal heart sounds - GI/Abdominal GI/Abdominal exam: Present: soft, normal bowel sounds. Absent: distended, tenderness, guarding, rebound, rigid, organomegaly, mass, bruit, pulsatile mass, hernia - Extremities Exam Extremities exam: Present: normal inspection, full ROM, normal capillary refill. Absent: calf tenderness - Back Exam Back exam: Present: normal inspection, full ROM. Absent: CVA tenderness (R), CVA tenderness (L), muscle spasm, paraspinal tenderness, vertebral tenderness - Neurological Exam Neurological exam: Present: alert, oriented X3, CN II-XII intact, normal gait, reflexes normal. Absent: motor sensory deficit - Skin Skin exam: Present: warm, intact, normal color ED Course Vital Signs 10/03/19 10/03/19 10/03/19 07:58 15:33 18:21 Temperature 98.7 F Pulse Rate 97 H 89 88 Respiratory 20 18 18 Rate Blood Pressure 164/100 Blood Pressure 154/100 154/92 [Left] O2 Sat by Pulse 100 99 97 Oximetry 10/03/19 21:07 Temperature Pulse Rate 90 Respiratory 16 Rate Blood Pressure Blood Pressure 138/89 [Left] O2 Sat by Pulse 100 Oximetry ED Medical Decision Making - Lab Data Result diagrams: 10/03/19 10:06 10/03/19 10:06 Critical care attestation.: If time is entered above; I have spent that time in minutes in the direct care of this critically ill patient, excluding procedure time. ED Disposition Is pt being admited?: Yes
[2019-10-03] MEDS ORDERED: fentaNYL 100 MCG/2 ML INJ IV ONE (12:00)
[2019-10-03] MEDS ORDERED: diphenhydrAMINE 50 MG/ML VIAL IV ONE (12:28)
[2019-10-03] MEDS ORDERED: HYDROcodone/ACETAMINOPHEN 5-325 MG TAB PO ONE (15:46)
--- NOTE | 2019-10-03 16:17 | Cat Scan Report ---
CT head/brain wo con INDICATION / CLINICAL INFORMATION: 29 years Female; AMS. TECHNIQUE: Routine CT head without contrast. All CT scans at this location are performed using CT dos e reduction for ALARA by means of automated exposure control. COMPARISON: None. FINDINGS: BRAIN / INTRACRANIAL CONTENTS: No acute hemorrhage, mass effect, midline shift, hydrocephalus, or acu te, large territorial infarct. No chronic infarct or atrophy appreciated. No significant white matter abnormality. CRANIOCERVICAL JUNCTION: No significant abnormality. ORBITS: No significant abnormality of visualized orbits. SINUSES / MASTOIDS: No significant abnormality the visualized paranasal sinuses or mastoid air cells. ADDITIONAL FINDINGS: None. IMPRESSION: 1. No focal mass, hemorrhage, hydrocephalus, or acute, large territorial infarct. Signer Name: René Workman MD, III Signed: 10/03/2019 4:13 PM Workstation Name: [id number]
--- NOTE | 2019-10-03 16:33 | Cat Scan Report ---
CT ABDOMEN AND PELVIS WITHOUT CONTRAST INDICATION: ABDOMINAL PAIN CONTRAST: Without IV COMPARISON: 04/16/[address] scans at this location are performed using CT dose reduction for ALARA by means of automated e xposure control. FINDINGS: No focal bony lesions are seen but the trabecular pattern is unusual suggesting osteomalaci a. This is not significantly changed from prior study however. Heart is enlarged, not significantly c hanged but certainly unusual for the patient's age. Increased interstitial markings are seen in the l miriam bases which are mildly more prominent and may suggest mild interstitial edema. Mild left basilar atelectatic changes are seen. No significant abdominal wall hernia is seen. No pneumoperitoneum is noted. Liver is significantly en larged in volume and has a length mildly abnormal at 19.3 cm. Spleen is not significantly enlarged. I do not see significant fatty infiltration and no focal hepatic masses are seen. No biliary dilatatio n is noted. No splenic lesions are obvious. Gallbladder shows a small gallstone. No definite wall thi ckening is seen though artifact in this area makes evaluation difficult. Pancreas shows no definite i nflammation or masses. There appears to be moderate adenopathy in the retroperitoneum which is more obvious than on prior st udy. Definition is poor due to significant artifact on the study with individual nodes difficult to d elineate well. There is also a suggestion of right common iliac adenopathy. I do not definitely see m esenteric adenopathy. Moderate amount of fluid is seen in the cul-de-sac of the pelvis which is not clearly organized and a ppears to be within the peritoneal cavity. A right ovarian complex cyst is seen measuring 2.7 cm. Johana endix appears within normal limits. No evidence of bowel obstruction is seen. No obvious focal bowel lesions or inflammatory changes are seen. Mild diffuse subcutaneous edema is noted. Both kidneys are moderately atrophic similar to prior study. Small probable cysts are seen in each ki dney. Calcifications in both renal bailee appear probably to be vascular rather than renal calculi thou gh this cannot be fully excluded. I do not see obstructive change however. No ureteral calculi or dil atation are seen. Urinary bladder is poorly distended and difficult to evaluate. IMPRESSION: 1. Cardiomegaly in a 29-year-old patient with possible interstitial pulmonary edema 2. Hepatomegaly without obvious focal lesion and not on the basis of fatty infiltration. I do not see splenomegaly however. 3. Moderate retroperitoneal lymphadenopathy and mild pelvic lymphadenopathy 4. Right ovarian complex cyst and moderate free fluid in the pelvis 5. Moderate bilateral renal atrophy without obstructive change. For the patient's age, unusual bilate ral renal hilar vascular calcifications though I do not see significant central atherosclerotic calci fication. 6. Possible mild anasarca. Signer Name: Feliciano Taylor MD Signed: 10/03/2019 4:29 PM Workstation Name: [id number]
[2019-10-03] MEDS ORDERED: ALBUTEROL 2.5 MG/3 ML NEBU IH PRN (17:34)
[2019-10-03] MEDS ORDERED: ACETAMINOPHEN 325 MG TAB PO PRN (17:34)
[2019-10-03] MEDS ORDERED: ONDANSETRON 4 MG/2 ML INJ IV PRN (17:34)
--- NOTE | 2019-10-03 18:02 | History and Physical Report ---
History of Present Illness Chief complaint: My stomach hurts History of present illness: 29 YO Female with HTN, Nicotine Dependence, Lupus, OA, Cocaine Dependence, Seizure Disorder, Asthma, Migraine Headache, ESRD on HD (T,R,Sa) presents to ED for evaluation. Patient states that she has experienced nausea with multiple episodes of vomiting over the past 12 hours with persistent symptoms over the same timeframe. Patient states that her pain is currently 35/10, crampy, intermittent. Patient states that "I cannot keep anything down". EMS notified and upon arrival the patient was found to be in distress and subsequently transported to [facility] for further care and evaluation. Pt seen and evaluated in ED. Lab and imaging studies reviewed. Patient not taking found to have ESRD, Medication Noncompliance. CT scan of the abdomen and pelvis was conducted and in the emergency department and the patient was found to have retroperitoneal lymphadenopathy as well as a right ovarian cyst. Patient placed in observation status and admitted to medical floor for medical optimization and further care. [employer] service consulted in ED. Surgery team consulted in ED. Nephrology team consulted in ED. Prior admission on 09/18/2019 reviewed. All medication listed at time of admission has been reconciled. Patient denies fever, chills, chest pain, palpitations, bright red blood per rectum, productive cough, skin rash, r ecent ill contacts. Past History Past Medical History: ESRD, other (See HPI) Past Surgical History: Other (Dialysis access) Social history: single. denies: smoking Family history: diabetes, hypertension Medications and Allergies Allergies Allergy/AdvReac Type Severity Reaction Status Date / Time acetaminophen [From Percocet] Allergy Itching Verified 04/21/18 08:28 lisinopril Allergy Swelling Verified 04/21/18 08:28 metoprolol Allergy Unknown Verified 04/21/18 08:28 oxycodone [From Percocet] Allergy Itching Verified 04/21/18 08:28 oxycodone HCl [From Percocet] AdvReac Unknown Verified 04/21/18 08:28 Home Medications Medication Instructions Recorded Confirmed Last Taken Type Metoclopramide HCl [Reglan TAB] 5 mg PO TIDAC PRN #20 tablet 12/15/18 09/18/19 Unknown Rx Albuterol Sulfate [Proair 2 puff IH Q4H PRN #1 pump 02/17/19 09/18/19 Unknown Rx Respiclick] Sertraline [Zoloft] 25 mg PO QDAY tablet 02/17/19 09/18/19 Unknown Rx Clonidine HCl [Catapres] 0.3 mg PO TID #60 tablet 04/17/19 09/18/19 Unknown Rx Hydroxychloroquine [Plaquenil] 200 mg PO QDAY #30 tablet 04/17/19 09/18/19 Unknown Rx hydrALAZINE [Apresoline TAB] 100 mg PO TID #90 tab 04/17/19 09/18/19 Unknown Rx labetaloL [Labetalol 200mg TAB] 200 mg PO TID #60 tablet 04/17/19 09/18/19 Unknown Rx methOCARBAMOL [Robaxin TAB] 750 mg PO Q6HR PRN #60 tablet 05/30/19 09/18/19 Unknown Rx Albuterol INH(or & Nicu Only) 2 puff IH QID PRN #8.5 gram 09/19/19 Unknown Rx [ProAir HFA Inhaler] HYDROcodone/APAP 5-325 [[place] 1 each PO Q6HR PRN #14 tablet 09/27/19 Unknown Rx 5/325] Ondansetron [Zofran Odt] 4 mg PO Q8HR PRN #20 tab.rapdis 09/27/19 Unknown Rx diphenhydrAMINE [Benadryl CAP] 25 mg PO Q6HR PRN #20 capsule 09/27/19 Unknown Rx Butalb/Acetamin/Caff 50-325-40 2 tab PO Q8HR PRN #14 tablet 09/30/19 Unknown Rx [Fioricet 50-325-40] Ibuprofen [Motrin 800 MG tab] 800 mg PO Q8HR PRN #20 tablet 09/30/19 Unknown Rx Phenytoin [Dilantin] 100 mg PO TID #90 capsule.er 09/30/19 Unknown Rx levETIRAcetam [Keppra TAB] 750 mg PO BID #60 tablet 09/30/19 Unknown Rx Ondansetron [Zofran Odt] 4 mg PO Q8HR PRN #14 tab.rapdis 10/03/19 Unknown Rx Active Meds: Active Medications Acetaminophen (Tylenol) 650 mg PO Q4H PRN PRN Reason: Pain MILD(1-3)/Fever >100.5/WOLFF Albuterol (Proventil) 2.5 mg IH Q4HRT PRN PRN Reason: Shortness Of Breath Ondansetron HCl (Zofran) 4 mg IV Q8H PRN PRN Reason: Nausea And Vomiting Sodium Chloride (Sodium Chloride Flush Syringe 10 Ml) 10 ml IV BID FERNANDO Sodium Chloride (Sodium Chloride Flush Syringe 10 Ml) 10 ml IV PRN PRN PRN Reason: LINE FLUSH Review of Systems Constitutional: no weight loss, no weight gain, no fever, no chills Ears, nose, mouth and throat: no ear pain, no ear discharge, no tinnitis, no decreased hearing Breasts: no change in shape, no swelling, no mass Cardiovascular: no chest pain, no rapid/irregular heart beat, no edema, no syncope, no shortness of breath Respiratory: no cough, no cough with sputum Gastrointestinal: abdominal pain, no constipation, no hematemesis, no BRBPR, no melena Genitourinary Female: no pelvic pain, no flank pain, no menorrhagia, no dysuria Rectal: no pain, no incontinence, no bleeding Musculoskeletal: no neck stiffness, no neck pain, no arm numbness/tingling, no leg numbness/tingling Integumentary: no rash, no pruritis, no redness, no sores, no wounds, no boils Neurological: no paralysis, no weakness, no parathesias, no tingling, no seizures, no tremors Psychiatric: no anxiety, no memory loss, no sleep disturbances, no insomnia, no change in libido, no suicidal ideation, no disorientation Endocrine: no polyphagia, no excessive thirst, no polyuria, no nocturia, no flushing Hematologic/Lymphatic: no easy bruising, no easy bleeding, no lymphadenopathy, no lymphedema Allergic/Immunologic: no urticaria, no persistent infections, no anaphylaxis, no angioedema Exam - Constitutional Vitals: Temp Pulse Resp BP Pulse Ox 98.7 F 89 18 154/100 99 10/03/19 07:58 10/03/19 15:33 10/03/19 15:33 10/03/19 15:33 10/03/19 15:33 General appearance: Present: mild distress - EENT Eyes: Present: PERRL ENT: hearing intact, clear oral mucosa - Neck Neck: Present: supple, normal ROM - Respiratory Respiratory effort: normal Respiratory: bilateral: CTA - Cardiovascular Heart Sounds: Present: S1 & S2. Absent: rub, click - Extremities Extremities: pulses symmetrical, No edema Peripheral Pulses: within normal limits - Abdominal General gastrointestinal: Present: soft, non-tender, non-distended, normal bowel sounds Female genitourinary: Present: normal - Integumentary Integumentary: Present: clear, warm, dry - Musculoskeletal Musculoskeletal: gait normal, strength equal bilaterally - Psychiatric Psychiatric: appropriate mood/affect, intact judgment & insight - Neurologic Neurologic: CNII-XII intact, moves all extremities Results - Labs CBC & Chem 7: 10/03/19 10:06 10/03/19 10:06 Labs: Abnormal lab results 10/03/19 10/03/19 Range/Units 10:06 10:06 WBC 3.4 L (4.5-11.0) K/mm3 RBC 2.84 L (3.65-5.03) M/mm3 Hgb 8.9 L (10.1-14.3) gm/dl Hct 27.1 L (30.3-42.9) % [place] % (Auto) 9.1 H (0.0-7.3) % Lymph # 0.5 L (1.2-5.4) K/mm3 Seg Neutrophils % 73.9 H (40.0-70.0) % Sodium 135 L (137-145) mmol/L Chloride 97.7 L (98-107) mmol/L Creatinine 5.3 H (0.7-1.2) mg/dL ALT < 5 L (7-56) units/L Total Protein 8.4 H (6.3-8.2) g/dL Albumin 3.1 L (3.9-5) g/dL Assessment and Plan - Patient Problems (1) End stage renal disease Current Visit: Yes Status: Acute Plan to address problem: Nephrology consulted in ED, dialysis as per renal team, strict I's/O, daily weight, monitor urine output every shift, avoid nephrotoxic agents, (2) Retroperitoneal lymphadenopathy Current Visit: Yes Status: Acute Plan to address problem: CT scan abdomen pelvis, surgery consulted, supportive care, serial physical exam, pain control. (3) Right ovarian cyst Current Visit: Yes Status: Acute Plan to address problem: CT scan abdomen and pelvis, gynecology service consulted in ED, pain control, supportive care, serial physical exam. (4) HTN (hypertension) Current Visit: No Status: Chronic Qualifiers: Hypertension type: essential hypertension Qualified Code(s): I10 - Essential (primary) hypertension Plan to address problem: Monitor blood pressure every shift, continue medical management. (5) Lupus (systemic lupus erythematosus) Current Visit: No Status: Chronic Qualifiers: Systemic lupus erythematosus organ involvement: glomerular disease Plan to address problem: Continue Plaquenil, supportive care, outpatient rheumatology follow-up. (6) Seizure disorder Current Visit: No Status: Chronic Plan to address problem: Continue Keppra, supportive care, neurochecks, seizure precaution. (7) DVT prophylaxis Current Visit: Yes Status: Acute Plan to address problem: SCD to bilateral lower extremities while in bed, patient is ambulatory.
[2019-10-03] MEDS ORDERED: ONDANSETRON 4 MG ODT TAB PO PRN (20:37)
[2019-10-03] MEDS ORDERED: diphenhydrAMINE 25 MG CAP PO PRN (20:37)
[2019-10-03] MEDS ORDERED: IBUPROFEN 800 MG TAB PO PRN (20:37)
[2019-10-03] MEDS ORDERED: BUTALB/ACETAMINOPHEN/CAFFEINE TAB PO PRN (20:37)
[2019-10-03] MEDS: HYDROcodone/ACETAMINOPHEN 5-325 MG TAB PO PRN (21:55)
[2019-10-03] MEDS: cloNIDine 0.2 MG TAB PO SCH (21:56)
[2019-10-03] MEDS: METOCLOPRAMIDE 10 MG TAB PO SCH (21:56)
[2019-10-03] MEDS: cloNIDine 0.1 MG TAB PO SCH (21:57)
[2019-10-03] MEDS: levETIRAcetam 500 MG TAB PO SCH (21:58)
[2019-10-04] MEDS ORDERED: hydrALAZINE 100 MG TAB PO SCH (06:00)
[2019-10-04] MEDS: HYDROcodone/ACETAMINOPHEN 5-325 MG TAB PO PRN (06:13)
[2019-10-04] MEDS ORDERED: cloNIDine 0.1 MG TAB PO SCH (08:00)
[2019-10-04] MEDS ORDERED: PHENYTOIN 100 MG CAPSULE.ER PO SCH (08:00)
--- NOTE | 2019-10-04 09:08 | Event Note ---
Date: 10/04/19 Full note to follow A/ possible hemorhage cyst fluid in pelvis similar to what was seen in 2018 p/ recommend pelvic ultrasound/CA-125
[2019-10-04] MEDS: cloNIDine 0.1 MG TAB PO SCH (09:47)
[2019-10-04] MEDS: levETIRAcetam 500 MG TAB PO SCH (09:49)
[2019-10-04] MEDS: METOCLOPRAMIDE 10 MG TAB PO SCH ×2 (09:51→13:29)
[2019-10-04] MEDS: cloNIDine 0.2 MG TAB PO SCH (09:52)
[2019-10-04] MEDS ORDERED: SERTRALINE 25 MG TAB PO SCH (10:00)
[2019-10-04] MEDS ORDERED: HYDROXYCHLOROQUINE 200 MG TAB PO SCH (10:00)
--- NOTE | 2019-10-04 10:27 | Consultation ---
History of Present Illness Consult date: 10/04/19 Reason for consult: abdominal pain Chief complaint: abd pain, n/v - History of present illness History of present illness: 29 yo F with hx of Lupus, seizure d/o presented to ER with 1 day history of pelvic abdominal pain. Pain did not radiate. No alleviating or exacerbating factors. +n/v. NO f/c. Now abd pain, n/v is resolved. She is tolerating liquids by mouth. Past History Past Medical History: dialysis, ESRD, hypertension, seizures, other (Lupus, OA, asthma) Past Surgical History: Other (Dialysis access) Social history: single, other (hx of cocaine and opiate abuse). denies: smoking Family history: diabetes, hypertension Medications and Allergies Allergies Allergy/AdvReac Type Severity Reaction Status Date / Time acetaminophen [From Percocet] Allergy Itching Verified 04/21/18 08:28 lisinopril Allergy Swelling Verified 04/21/18 08:28 metoprolol Allergy Unknown Verified 04/21/18 08:28 oxycodone [From Percocet] Allergy Itching Verified 04/21/18 08:28 oxycodone HCl [From Percocet] AdvReac Unknown Verified 04/21/18 08:28 Home Medications Medication Instructions Recorded Confirmed Last Taken Type Metoclopramide HCl [Reglan TAB] 5 mg PO TIDAC PRN #20 tablet 12/15/18 10/03/19 Unknown Rx Albuterol Sulfate [Proair 2 puff IH Q4H PRN #1 pump 02/17/19 10/03/19 Unknown Rx Respiclick] Sertraline [Zoloft] 25 mg PO QDAY tablet 02/17/19 10/03/19 Unknown Rx Clonidine HCl [Catapres] 0.3 mg PO TID #60 tablet 04/17/19 10/03/19 Unknown Rx Hydroxychloroquine [Plaquenil] 200 mg PO QDAY #30 tablet 04/17/19 10/03/19 Unknown Rx hydrALAZINE [Apresoline TAB] 100 mg PO TID #90 tab 04/17/19 10/03/19 Unknown Rx labetaloL [Labetalol 200mg TAB] 200 mg PO TID #60 tablet 04/17/19 10/03/19 Unknown Rx methOCARBAMOL [Robaxin TAB] 750 mg PO Q6HR PRN #60 tablet 05/30/19 10/03/19 Unknown Rx Albuterol INH(or & Nicu Only) 2 puff IH QID PRN #8.5 gram 09/19/19 10/03/19 Unknown Rx [ProAir HFA Inhaler] HYDROcodone/APAP 5-325 [[place] 1 each PO Q6HR PRN #14 tablet 09/27/19 10/03/19 Unknown Rx 5-325 mg TAB] Ondansetron [Zofran ODT TAB] 4 mg PO Q8HR PRN #20 tab.rapdis 09/27/19 10/03/19 Unknown Rx diphenhydrAMINE [Benadryl CAP] 25 mg PO Q6HR PRN #20 capsule 09/27/19 10/03/19 Unknown Rx Butalb/Acetamin/Caff 50-325-40 2 tab PO Q8HR PRN #14 tablet 09/30/19 10/03/19 Unknown Rx [Fioricet 50-325-40] Ibuprofen [Motrin 800 MG tab] 800 mg PO Q8HR PRN #20 tablet 09/30/19 10/03/19 Unknown Rx Phenytoin [Dilantin] 100 mg PO TID #90 capsule.er 09/30/19 10/03/19 Unknown Rx levETIRAcetam [Keppra TAB] 750 mg PO BID #60 tablet 09/30/19 10/03/19 Unknown Rx Ondansetron [Zofran Odt] 4 mg PO Q8HR PRN #14 tab.rapdis 10/03/19 Unknown Rx Active Meds: Active Medications Acetaminophen (Tylenol) 650 mg PO Q4H PRN PRN Reason: Pain MILD(1-3)/Fever >100.5/WOLFF Acetaminophen/Butalbital/Caffeine (Fioricet) 2 tab PO Q8H PRN PRN Reason: Headache Acetaminophen/Hydrocodone Bitart ([place] 5/325) 1 each PO Q6H PRN PRN Reason: Pain , Severe (7-10) Last Admin: 10/04/19 06:13 Dose: 1 each Documented by: Albuterol (Proventil) 2.5 mg IH Q4HRT PRN PRN Reason: Shortness Of Breath Clonidine HCl (Catapres) 0.2 mg PO TID FERNANDO Last Admin: 10/04/19 09:52 Dose: 0.2 mg Documented by: Clonidine HCl (Catapres) 0.1 mg PO TID [facility] Last Admin: 10/04/19 09:47 Dose: 0.1 mg Documented by: Diphenhydramine HCl (Benadryl) 25 mg PO Q6H PRN PRN Reason: Itching Last Admin: 10/03/19 21:56 Dose: 25 mg Documented by: Hydralazine HCl (Apresoline) 100 mg PO Q8HR [facility] Last Admin: 10/04/19 05:59 Dose: 100 mg Documented by: Hydroxychloroquine Sulfate (Plaquenil) 200 mg PO QDAY [facility] Last Admin: 10/04/19 09:52 Dose: 200 mg Documented by: Ibuprofen (Ibuprofen) 800 mg PO Q8H PRN PRN Reason: Pain, Moderate (4-6) Labetalol HCl (Labetalol) 200 mg PO TID [facility] Last Admin: 10/04/19 09:48 Dose: 200 mg Documented by: Levetiracetam (Keppra) 750 mg PO BID [facility] Last Admin: 10/04/19 09:49 Dose: 750 mg Documented by: Methocarbamol (Robaxin) 750 mg PO Q6H PRN PRN Reason: Spasms Metoclopramide HCl (Reglan) 5 mg PO TIDAC [facility] Last Admin: 10/04/19 09:51 Dose: Not Given Documented by: Ondansetron HCl (Zofran) 4 mg IV Q8H PRN PRN Reason: Nausea And Vomiting Ondansetron HCl (Zofran Odt) 4 mg PO Q8H PRN PRN Reason: Nausea And Vomiting Phenytoin (Dilantin) 100 mg PO TID [facility] Last Admin: 10/04/19 09:46 Dose: 100 mg Documented by: Sertraline HCl (Zoloft) 25 mg PO QDAY [facility] Last Admin: 10/04/19 09:46 Dose: 25 mg Documented by: Sodium Chloride (Sodium Chloride Flush Syringe 10 Ml) 10 ml IV BID [facility] Last Admin: 10/03/19 21:59 Dose: 10 ml Documented by: Sodium Chloride (Sodium Chloride Flush Syringe 10 Ml) 10 ml IV PRN PRN PRN Reason: LINE FLUSH Review of Systems All systems: negative (10 pt ROS performed and negative except for that listed in HPI) Exam Vital Signs Temp Pulse Resp BP Pulse Ox 98.7 F 97 H 20 164/100 100 10/03/19 07:58 10/03/19 07:58 10/03/19 07:58 10/03/19 07:58 10/03/19 07:58 Narrative exam: Gen: AAOx3. NAD ENT: no scleral icterus or conjunctival pallor CV: s1, S2+ resp: even and unlabored Abd: soft, NT, ND Ext: no c/c/e Results - Labs 10/03/19 10:06 10/03/19 10:06 Abnormal lab results 10/03/19 10/03/19 Range/Units 10:06 10:06 WBC 3.4 L (4.5-11.0) K/mm3 RBC 2.84 L (3.65-5.03) M/mm3 Hgb 8.9 L (10.1-14.3) gm/dl Hct 27.1 L (30.3-42.9) % [place] % (Auto) 9.1 H (0.0-7.3) % Lymph # 0.5 L (1.2-5.4) K/mm3 Seg Neutrophils % 73.9 H (40.0-70.0) % Sodium 135 L (137-145) mmol/L Chloride 97.7 L (98-107) mmol/L Creatinine 5.3 H (0.7-1.2) mg/dL ALT < 5 L (7-56) units/L Total Protein 8.4 H (6.3-8.2) g/dL Albumin 3.1 L (3.9-5) g/dL Diabetes panel 10/03/19 Range/Units 10:06 Sodium 135 L (137-145) mmol/L Potassium 5.0 (3.6-5.0) mmol/L Chloride 97.7 L (98-107) mmol/L Carbon Dioxide 24 (22-30) mmol/L BUN 9 (7-17) mg/dL Creatinine 5.3 H (0.7-1.2) mg/dL Glucose 71 (65-100) mg/dL Calcium 8.8 (8.4-10.2) mg/dL AST 23 (5-40) units/L ALT < 5 L (7-56) units/L Alkaline Phosphatase 118 (35-129) units/L Total Protein 8.4 H (6.3-8.2) g/dL Albumin 3.1 L (3.9-5) g/dL Calcium panel 10/03/19 Range/Units 10:06 Calcium 8.8 (8.4-10.2) mg/dL Albumin 3.1 L (3.9-5) g/dL Pituitary panel 10/03/19 Range/Units 10:06 Sodium 135 L (137-145) mmol/L Potassium 5.0 (3.6-5.0) mmol/L Chloride 97.7 L (98-107) mmol/L Carbon Dioxide 24 (22-30) mmol/L BUN 9 (7-17) mg/dL Creatinine 5.3 H (0.7-1.2) mg/dL Glucose 71 (65-100) mg/dL Calcium 8.8 (8.4-10.2) mg/dL Adrenal panel 10/03/19 Range/Units 10:06 Sodium 135 L (137-145) mmol/L Potassium 5.0 (3.6-5.0) mmol/L Chloride 97.7 L (98-107) mmol/L Carbon Dioxide 24 (22-30) mmol/L BUN 9 (7-17) mg/dL Creatinine 5.3 H (0.7-1.2) mg/dL Glucose 71 (65-100) mg/dL Calcium 8.8 (8.4-10.2) mg/dL Total Bilirubin 0.30 (0.1-1.2) mg/dL AST 23 (5-40) units/L ALT < 5 L (7-56) units/L Alkaline Phosphatase 118 (35-129) units/L Total Protein 8.4 H (6.3-8.2) g/dL Albumin 3.1 L (3.9-5) g/dL - Imaging CT scan - abdomen: report reviewed, image reviewed CT scan - pelvis: report reviewed, image reviewed Assessment and Plan 29 yo F with abd pain, retroperitoneal lympadenopathy Ct scan A/P images and radiology report reviewed. Compared to two prior studies 04/2019 and 12/2018. Plan: 1. clear liquid diet 2. IVF 3. prn pain control (Pt with hx of opiate abuse) - avoid narcotics 4. ENGINEER SERGEANT consulted 5. Retroperitoneal lymphadenopathy can have multiple etiologies. Infectious, autoimmune related, etc. Pt should follow up with a medical staff assistant or braid pattern setter as outpatient for w/u. No acute general surgery intervention. Thank you, please call with questions.
--- NOTE | 2019-10-04 11:02 | Consultation ---
History of Present Illness - Reason for Consult Consult date: 10/04/19 end stage renal disease, accelerated hypertension Requesting physician: MARTY MCKOY - History of Present Illness History of present illness: 29 YO Female with HTN, Nicotine Dependence, Lupus, OA, Cocaine Dependence, Seizure Disorder, Asthma, Migraine Headache, ESRD on HD (T,R,Sa) presents to ED for evaluation. Patient states that she has experienced nausea with multiple episodes of vomiting over the past 12 hours with persistent symptoms over the same timeframe. Patient states that her pain is currently 35/10, crampy, intermittent. Patient states that "I cannot keep anything down". EMS notified and upon arrival the patient was found to be in distress and subsequently transported to [facility] for further care and evaluation. Pt seen and evaluated in ED. Lab and imaging studies reviewed. Patient not taking found to have ESRD, Medication Noncompliance. CT scan of the abdomen and pelvis was conducted and in the emergency department and the patient was found to have retroperitoneal lymphadenopathy as well as a right ovarian cyst. Patient placed in observation status and admitted to medical floor for medical optimization and further care. 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 Surgery team consulted in ED. Nephrology team consulted in ED. Prior admission on 09/18/2019 reviewed. All medication listed at time of admission has been reconciled. Patient denies fever, chills, chest pain, palpitations, bright red blood per rectum, productive cough, skin rash, recent ill contacts. Past History Past Medical History: ESRD, other (See HPI) Past Surgical History: Other (Dialysis access) Social history: single. denies: smoking Family history: diabetes, hypertension Review of Systems Constitutional: no weight loss, no weight gain, no fever, no chills Ears, nose, mouth and throat: no ear pain, no ear discharge, no tinnitis, no decreased hearing Breasts: no change in shape, no swelling, no mass Cardiovascular: no chest pain, no rapid/irregular heart beat, no edema, no syncope, no shortness of breath Respiratory: no cough, no cough with sputum Gastrointestinal: abdominal pain, no constipation, no hematemesis, no BRBPR, no melena Genitourinary Female: no pelvic pain, no flank pain, no menorrhagia, no dysuria Rectal: no pain, no incontinence, no bleeding Musculoskeletal: no neck stiffness, no neck pain, no arm numbness/tingling, no leg numbness/tingling Integumentary: no rash, no pruritis, no redness, no sores, no wounds, no boils Neurological: no paralysis, no weakness, no parathesias, no tingling, no seizures, no tremors Psychiatric: no anxiety, no memory loss, no sleep disturbances, no insomnia, no change in libido, no suicidal ideation, no disorientation Endocrine: no polyphagia, no excessive thirst, no polyuria, no nocturia, no flushing Hematologic/Lymphatic: no easy bruising, no easy bleeding, no lymphadenopathy, no lymphedema Allergic/Immunologic: no urticaria, no persistent infections, no anaphylaxis, no angioedema Past History Past Medical History: dialysis, ESRD, hypertension, seizures, other (Lupus, OA, asthma) Past Surgical History: Other (Dialysis access) Social history: single, other (hx of cocaine and opiate abuse). denies: smoking Family history: diabetes, hypertension Medications and Allergies Allergies Allergy/AdvReac Type Severity Reaction Status Date / Time acetaminophen [From Percocet] Allergy Itching Verified 04/21/18 08:28 lisinopril Allergy Swelling Verified 04/21/18 08:28 metoprolol Allergy Unknown Verified 04/21/18 08:28 oxycodone [From Percocet] Allergy Itching Verified 04/21/18 08:28 oxycodone HCl [From Percocet] AdvReac Unknown Verified 04/21/18 08:28 Home Medications Medication Instructions Recorded Confirmed Last Taken Type Metoclopramide HCl [Reglan TAB] 5 mg PO TIDAC PRN #20 tablet 12/15/18 10/03/19 Unknown Rx Albuterol Sulfate [Proair 2 puff IH Q4H PRN #1 pump 02/17/19 10/03/19 Unknown Rx Respiclick] Sertraline [Zoloft] 25 mg PO QDAY tablet 02/17/19 10/03/19 Unknown Rx Clonidine HCl [Catapres] 0.3 mg PO TID #60 tablet 04/17/19 10/03/19 Unknown Rx Hydroxychloroquine [Plaquenil] 200 mg PO QDAY #30 tablet 04/17/19 10/03/19 Unknown Rx hydrALAZINE [Apresoline TAB] 100 mg PO TID #90 tab 04/17/19 10/03/19 Unknown Rx labetaloL [Labetalol 200mg TAB] 200 mg PO TID #60 tablet 04/17/19 10/03/19 Unknown Rx methOCARBAMOL [Robaxin TAB] 750 mg PO Q6HR PRN #60 tablet 05/30/19 10/03/19 Unknown Rx Albuterol INH(or & Nicu Only) 2 puff IH QID PRN #8.5 gram 09/19/19 10/03/19 Unknown Rx [ProAir HFA Inhaler] HYDROcodone/APAP 5-325 [[place] 1 each PO Q6HR PRN #14 tablet 09/27/19 10/03/19 Unknown Rx 5/325] Ondansetron [Zofran Odt] 4 mg PO Q8HR PRN #20 tab.rapdis 09/27/19 10/03/19 Unknown Rx diphenhydrAMINE [Benadryl CAP] 25 mg PO Q6HR PRN #20 capsule 09/27/19 10/03/19 Unknown Rx Butalb/Acetamin/Caff 50-325-40 2 tab PO Q8HR PRN #14 tablet 09/30/19 10/03/19 Unknown Rx [Fioricet 50-325-40] Ibuprofen [Motrin 800 MG tab] 800 mg PO Q8HR PRN #20 tablet 09/30/19 10/03/19 Unknown Rx Phenytoin [Dilantin] 100 mg PO TID #90 capsule.er 09/30/19 10/03/19 Unknown Rx levETIRAcetam [Keppra TAB] 750 mg PO BID #60 tablet 09/30/19 10/03/19 Unknown Rx Ondansetron [Zofran Odt] 4 mg PO Q8HR PRN #14 tab.rapdis 10/03/19 Unknown Rx Active Meds: Active Medications Acetaminophen (Tylenol) 650 mg PO Q4H PRN PRN Reason: Pain MILD(1-3)/Fever >100.5/WOLFF Acetaminophen/Butalbital/Caffeine (Fioricet) 2 tab PO Q8H PRN PRN Reason: Headache Acetaminophen/Hydrocodone Bitart ([place] 5/325) 1 each PO Q6H PRN PRN Reason: Pain , Severe (7-10) Last Admin: 10/04/19 06:13 Dose: 1 each Documented by: Albuterol (Proventil) 2.5 mg IH Q4HRT PRN PRN Reason: Shortness Of Breath Clonidine HCl (Catapres) 0.2 mg PO TID [facility] Last Admin: 10/04/19 09:52 Dose: 0.2 mg Documented by: Clonidine HCl (Catapres) 0.1 mg PO TID [facility] Last Admin: 10/04/19 09:47 Dose: 0.1 mg Documented by: Diphenhydramine HCl (Benadryl) 25 mg PO Q6H PRN PRN Reason: Itching Last Admin: 10/03/19 21:56 Dose: 25 mg Documented by: Hydralazine HCl (Apresoline) 100 mg PO Q8HR [facility] Last Admin: 10/04/19 05:59 Dose: 100 mg Documented by: Hydroxychloroquine Sulfate (Plaquenil) 200 mg PO QDAY [facility] Last Admin: 10/04/19 09:52 Dose: 200 mg Documented by: Ibuprofen (Ibuprofen) 800 mg PO Q8H PRN PRN Reason: Pain, Moderate (4-6) Labetalol HCl (Labetalol) 200 mg PO TID [facility] Last Admin: 10/04/19 09:48 Dose: 200 mg Documented by: Levetiracetam (Keppra) 750 mg PO BID [facility] Last Admin: 10/04/19 09:49 Dose: 750 mg Documented by: Methocarbamol (Robaxin) 750 mg PO Q6H PRN PRN Reason: Spasms Metoclopramide HCl (Reglan) 5 mg PO TIDAC [facility] Last Admin: 10/04/19 09:51 Dose: Not Given Documented by: Ondansetron HCl (Zofran) 4 mg IV Q8H PRN PRN Reason: Nausea And Vomiting Ondansetron HCl (Zofran Odt) 4 mg PO Q8H PRN PRN Reason: Nausea And Vomiting Phenytoin (Dilantin) 100 mg PO TID [facility] Last Admin: 10/04/19 09:46 Dose: 100 mg Documented by: Sertraline HCl (Zoloft) 25 mg PO QDAY [facility] Last Admin: 10/04/19 09:46 Dose: 25 mg Documented by: Sodium Chloride (Sodium Chloride Flush Syringe 10 Ml) 10 ml IV BID [facility] Last Admin: 10/03/19 21:59 Dose: 10 ml Documented by: Sodium Chloride (Sodium Chloride Flush Syringe 10 Ml) 10 ml IV PRN PRN PRN Reason: LINE FLUSH Exam - Vital Signs Vital signs: Vital Signs Temp Pulse Resp BP Pulse Ox 98.7 F 97 H 20 164/100 100 10/03/19 07:58 10/03/19 07:58 10/03/19 07:58 10/03/19 07:58 10/03/19 07:58 - Physical Exam Narrative exam: General appearance: Present: mild distress - EENT Eyes: Present: PERRL ENT: hearing intact, clear oral mucosa - Neck Neck: Present: supple, normal ROM - Respiratory Respiratory effort: normal Respiratory: bilateral: CTA - Cardiovascular Heart Sounds: Present: S1 & S2. Absent: rub, click - Extremities Extremities: pulses symmetrical, No edema Peripheral Pulses: within normal limits - Abdominal General gastrointestinal: Present: soft, non-tender, non-distended, normal bowel sounds Female genitourinary: Present: normal - Integumentary Integumentary: Present: clear, warm, dry - Musculoskeletal Musculoskeletal: gait normal, strength equal bilaterally - Psychiatric Psychiatric: appropriate mood/affect, intact judgment & insight - Neurologic Neurologic: CNII-XII intact, moves all extremities Results - Lab Results 10/03/19 10:06 10/03/19 10:06 Most recent lab results Calcium 8.8 mg/dL (8.4-10.2) 10/03/19 10:06 Assessment and Plan Impression: * End stage renal disease * seizure disorder * Accelerated hypertension * SLE * Seizure disorder * Anemia secondary to ESRD * Secondary hyperparathryoidism Plan: * Hemodialysis MWF, and prn * advanced practice nurse workup per primary team * UF as tolerated * Pain management per primary team * Continue antiHTN medications * Renal diet * Epogen TIW prn
[2019-10-04] MEDS ORDERED: ALBUMIN HUMAN 25% (25 GM/100 ML) INJ IV PRN (11:05)
[2019-10-04] MEDS ORDERED: EPOETIN ALFA 10,000 UNIT/1 ML INJ IV PRN (11:05)
[2019-10-04] MEDS ORDERED: SODIUM CHLORIDE 0.9% 100 ML IV PRN (11:05)
--- NOTE | 2019-10-04 12:37 | Consultation ---
History of Present Illness Consult date: 10/04/19 (Patient see @0900) Requesting physician: RAVIN WONG Reason for consult: ovarian cyst, other (Abdominal and Pelvic lymphadenopathy seen on CT scan) History of present illness: This is a 29-year-old black female para 0020 presently on her menses. Patient was admitted through the emergency room for abdominal pain and seizures. Her workup included a abdominal pelvic CT scan which showed a small complex ovarian cysts some pelvic fluid and abdominal and pelvic lymphadenopathy. Patient states that she is sexually active and has had regular menses. Patient's urine test this visit is negative. CT scan shows moderate amount of fluid in the cul-de-sac of the pelvis. A right ovarian complex cysts measuring 2.7 cm also as shows moderate adenopathy in the retroperitoneum. 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 (patient states has not had a Pap smear in over 10 years) Family/Genetic History: diabetes, hypertension Social history: single, other (multiple drug abuse) - Obstetrical History : 2 Hx # Term Pregnancies: 0 Number of Pregnancies: 0 Spontaneous Abortions: 2 Induced : 0 Number of Living Children: 0 Medications and Allergies Allergies Allergy/AdvReac Type Severity Reaction Status Date / Time acetaminophen [From Percocet] Allergy Itching Verified 04/21/18 08:28 lisinopril Allergy Swelling Verified 04/21/18 08:28 metoprolol Allergy Unknown Verified 04/21/18 08:28 oxycodone [From Percocet] Allergy Itching Verified 04/21/18 08:28 oxycodone HCl [From Percocet] AdvReac Unknown Verified 04/21/18 08:28 Home Medications Medication Instructions Recorded Confirmed Last Taken Type Metoclopramide HCl [Reglan TAB] 5 mg PO TIDAC PRN #20 tablet 12/15/18 10/03/19 Unknown Rx Albuterol Sulfate [Proair 2 puff IH Q4H PRN #1 pump 02/17/19 10/03/19 Unknown Rx Respiclick] Sertraline [Zoloft] 25 mg PO QDAY tablet 02/17/19 10/03/19 Unknown Rx Clonidine HCl [Catapres] 0.3 mg PO TID #60 tablet 04/17/19 10/03/19 Unknown Rx Hydroxychloroquine [Plaquenil] 200 mg PO QDAY #30 tablet 04/17/19 10/03/19 Unkno wn Rx hydrALAZINE [Apresoline TAB] 100 mg PO TID #90 tab 04/17/19 10/03/19 Unknown Rx labetaloL [Labetalol 200mg TAB] 200 mg PO TID #60 tablet 04/17/19 10/03/19 Unknown Rx methOCARBAMOL [Robaxin TAB] 750 mg PO Q6HR PRN #60 tablet 05/30/19 10/03/19 Unknown Rx Albuterol INH(or & Nicu Only) 2 puff IH QID PRN #8.5 gram 09/19/19 10/03/19 Unknown Rx [ProAir HFA Inhaler] HYDROcodone/APAP 5-325 [[place] 1 each PO Q6HR PRN #14 tablet 09/27/19 10/03/19 Unknown Rx 5/325] Ondansetron [Zofran Odt] 4 mg PO Q8HR PRN #20 tab.rapdis 09/27/19 10/03/19 Unknown Rx diphenhydrAMINE [Benadryl CAP] 25 mg PO Q6HR PRN #20 capsule 09/27/19 10/03/19 Unknown Rx Butalb/Acetamin/Caff 50-325-40 2 tab PO Q8HR PRN #14 tablet 09/30/19 10/03/19 Unknown Rx [Fioricet 50-325-40] Ibuprofen [Motrin 800 MG tab] 800 mg PO Q8HR PRN #20 tablet 09/30/19 10/03/19 Unknown Rx Phenytoin [Dilantin] 100 mg PO TID #90 capsule.er 09/30/19 10/03/19 Unknown Rx levETIRAcetam [Keppra TAB] 750 mg PO BID #60 tablet 09/30/19 10/03/19 Unknown Rx Ondansetron [Zofran Odt] 4 mg PO Q8HR PRN #14 tab.rapdis 10/03/19 Unknown Rx Active Meds: Active Medications Acetaminophen (Tylenol) 650 mg PO Q4H PRN PRN Reason: Pain MILD(1-3)/Fever >100.5/WOLFF Acetaminophen/Butalbital/Caffeine (Fioricet) 2 tab PO Q8H PRN PRN Reason: Headache Acetaminophen/Hydrocodone Bitart ([place] 5/325) 1 each PO Q6H PRN PRN Reason: Pain , Severe (7-10) Last Admin: 10/04/19 06:13 Dose: 1 each Documented by: Albumin Human (Alburx 25% (Albumin)) 25 gm IV ALYSSA PRN PRN Reason: Hypotension Albuterol (Proventil) 2.5 mg IH Q4HRT PRN PRN Reason: Shortness Of Breath Clonidine HCl (Catapres) 0.2 mg PO TID [facility] Last Admin: 10/04/19 09:52 Dose: 0.2 mg Documented by: Clonidine HCl (Catapres) 0.1 mg PO TID [facility] Last Admin: 10/04/19 09:47 Dose: 0.1 mg Documented by: Diphenhydramine HCl (Benadryl) 25 mg PO Q6H PRN PRN Reason: Itching Last Admin: 10/03/19 21:56 Dose: 25 mg Documented by: Epoetin Blair (Procrit) 10,000 unit IV ALYSSA PRN PRN Reason: hemodialysis Hydralazine HCl (Apresoline) 100 mg PO Q8HR [facility] Last Admin: 10/04/19 05:59 Dose: 100 mg Documented by: Hydroxychloroquine Sulfate (Plaquenil) 200 mg PO QDAY [facility] Last Admin: 10/04/19 09:52 Dose: 200 mg Documented by: Sodium Chloride (Nacl 0.9%) 100 mls @ 999 mls/hr IV ALYSSA PRN PRN Reason: Hypotension Ibuprofen (Ibuprofen) 800 mg PO Q8H PRN PRN Reason: Pain, Moderate (4-6) Labetalol HCl (Labetalol) 200 mg PO TID [facility] Last Admin: 10/04/19 09:48 Dose: 200 mg Documented by: Levetiracetam (Keppra) 750 mg PO BID [facility] Last Admin: 10/04/19 09:49 Dose: 750 mg Documented by: Methocarbamol (Robaxin) 750 mg PO Q6H PRN PRN Reason: Spasms Metoclopramide HCl (Reglan) 5 mg PO TIDAC [facility] Last Admin: 10/04/19 09:51 Dose: Not Given Documented by: Ondansetron HCl (Zofran) 4 mg IV Q8H PRN PRN Reason: Nausea And Vomiting Ondansetron HCl (Zofran Odt) 4 mg PO Q8H PRN PRN Reason: Nausea And Vomiting Phenytoin (Dilantin) 100 mg PO TID [facility] Last Admin: 10/04/19 09:46 Dose: 100 mg Documented by: Sertraline HCl (Zoloft) 25 mg PO QDAY [facility] Last Admin: 10/04/19 09:46 Dose: 25 mg Documented by: Sodium Chloride (Sodium Chloride Flush Syringe 10 Ml) 10 ml IV BID [facility] Last Admin: 10/03/19 21:59 Dose: 10 ml Documented by: Sodium Chloride (Sodium Chloride Flush Syringe 10 Ml) 10 ml IV PRN PRN PRN Reason: LINE FLUSH - Vital Signs Vital signs: Vital Signs Temp Pulse Resp BP Pulse Ox 98.7 F 97 H 20 164/100 100 10/03/19 07:58 10/03/19 07:58 10/03/19 07:58 10/03/19 07:58 10/03/19 07:58 Temp Pulse Resp BP Pulse Ox 98.1 F 86 20 149/99 99 10/04/19 05:52 10/04/19 09:52 10/03/19 21:25 10/04/19 09:52 10/04/19 08:02 - Physical Exam Abdomen: Positive: soft. Negative: tenderness Genitourinary (Female): Positive: other (presently on menses deferred) Results Result Diagrams: 10/03/19 10:06 10/03/19 10:06 All other labs normal. CT scan - abdomen: report reviewed CT scan - pelvis: report reviewed Chest x-ray: report reviewed Assessment and Plan - Patient Problems (1) Right ovarian cyst Current Visit: Yes Status: Acute Plan to address problem: Patient is presently on her menses this could be compatible with a corpus cysts or possible hemorrhagic ovarian cyst. Patient with similar cyst findings in the past. We'll recommend a pelvic ultrasound if further clarification is needed. But this appears compatible with her current menses and can be follow-up outpatient setting repeat pelvic ultrasound in 6 weeks. Patient with cul-de-sac fluid again were consistent with current menses present but also similar findings were noted on pelvic ultrasound in 2018. Again this can be followed outpatient with a repeat pelvic ultrasound. I did order a CA-125 results are pending now but again is a very nonspecific tests. Believed we see is benign but needs further follow-up. I did give Ms. Turner our office information to follow up with us. Thank you for asking us to see this patient. Please call if any further help needed from us (2) Retroperitoneal lymphadenopathy Current Visit: Yes Status: Acute Plan to address problem: Patient with multiple problems that could account for this finding. Again for STAFF MINE W[employer] OFFICER standpoint can be followed up as outpatient.
[2019-10-04 12:56] VITALS: BP 152/101
--- NOTE | 2019-10-04 13:27 | Discharge Summary ---
Providers - Providers Date of Admission: 10/03/19 17:34 Date of discharge: 10/04/19 Attending physician: ISMAEL MAN 10/03/19 18:00 Consult to Physician [CONS] Urgent Comment: DR KOREY Robins/DR POOLE @[id number] Consulting Provider: ELSIE POOLE Physician Instructions: Reason For Exam: retropar. LAD abd pain Consult to Physician [CONS] Urgent Comment: DR KOREY Robins/DR MACHADO @[id number] Consulting Provider: DARWIN MACHADO Physician Instructions: Reason For Exam: retropar LAD with abd pain 10/03/19 18:04 Consult to Physician [CONS] Routine Comment: Consulting Provider: ULYSSES YO Physician Instructions: Reason For Exam: esrd Primary care physician: CHIEF SAFETY OFFICER Hospitalization Condition: Stable Pertinent studies: Head CT CT abdomen/pelvis Hospital course: 29 YO Female with HTN, Nicotine Dependence, Lupus, OA, Cocaine Dependence, Seizure Disorder, Asthma, Migraine Headache, ESRD on HD (T,R,Sa) presents to ED for evaluation of nausea with multiple episodes of vomiting over the past 12 hours and abdominal pain. CT scan of the abdomen and pelvis was conducted in the emergency department and the patient was found to have retroperitoneal lymphadenopathy as well as a right ovarian cyst. Patient placed in observation status and admitted to medical floor for medical optimization and further care. 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 GS recommended medical Mx. Patient will get her HD at outpt TRS schedule. Her synptom resolved following admission with supportive care and was able to tolerate diet. [facility] in [facility] condition. Discharge diagnosis: End stage renal disease Retroperitoneal lymphadenopathy Right ovarian cyst HTN (hypertension) Lupus (systemic lupus erythematosus) Seizure disorder Disposition: - TO HOME OR SELFCARE Time spent for discharge: 34 minutes Core Measure Documentation - Palliative Care Palliative Care/ Comfort Measures: Not Applicable - Core Measures Any of the following diagnoses?: none Exam - Constitutional Vitals: Temp Pulse Resp BP Pulse Ox 98.0 F 84 20 152/101 98 10/04/19 12:18 10/04/19 12:18 10/04/19 12:18 10/04/19 12:18 10/04/19 12:18 General appearance: Present: no acute distress - EENT Eyes: Present: PERRL ENT: hearing intact, clear oral mucosa - Neck Neck: Present: supple, normal ROM - Respiratory Respiratory effort: normal Respiratory: bilateral: CTA - Cardiovascular Heart Sounds: Present: S1 & S2. Absent: rub, click - Extremities Extremities: pulses symmetrical, No edema Peripheral Pulses: within normal limits - Abdominal General gastrointestinal: Present: soft, non-tender, non-distended, normal bowel sounds - Integumentary Integumentary: Present: clear, warm, dry - Musculoskeletal Musculoskeletal: gait normal, strength equal bilaterally - Psychiatric Psychiatric: appropriate mood/affect, intact judgment & insight - Neurologic Neurologic: CNII-XII intact, moves all extremities Plan Activity: advance as tolerated Weight Bearing Status: Weight Bear as Tolerated Diet: renal Follow up with: PRIMARY CAREMD [Primary Care Provider] - 7 Days DARWIN MACHADO MD [Staff Physician] - 7 Days Prescriptions: Ondansetron [Zofran Odt] 4 mg PO Q8HR PRN #14 tab.rapdis PRN Reason: Nausea And Vomiting
== END 2019-10-04 18:00 | disposition home or self-care (01) ==
LOC: ED 07:30 → 3A 17:34
PROVIDERS: ADMIT Internal Medicine; ATTEND Internal Medicine
DX: N83.201 Unspecified ovarian cyst, right side (principal); M32.9 Systemic lupus erythematosus, unspecified; R59.0 Localized enlarged lymph nodes; I12.0 Hypertensive chronic kidney disease with stage 5 chronic kidney disease or end stage renal disease; N18.6 End stage renal disease; R59.1 Generalized enlarged lymph nodes; G40.909 Epilepsy, unspecified, not intractable, without status epilepticus; J45.909 Unspecified asthma, uncomplicated; R11.2 Nausea with vomiting, unspecified; M19.90 Unspecified osteoarthritis, unspecified site; G43.909 Migraine, unspecified, not intractable, without status migrainosus; D63.1 Anemia in chronic kidney disease; E21.3 Hyperparathyroidism, unspecified; F17.200 Nicotine dependence, unspecified, uncomplicated; Z79.899 Other long term (current) drug therapy; Z99.2 Dependence on renal dialysis
CPT/HCPCS: 36415; 70450; 74176; 80053; 84703; 85025; 87116; 96374; 96375; 99284; G0378; J1200; J2405; J3010

== ENCOUNTER 2019-10-21 15:23 | Emergency (ER) | payer MEDICARE ==
[2019-10-21] MEDS ORDERED: HYDROmorphone 2 MG/1 ML INJ IM ONE (17:02)
[2019-10-21] MEDS ORDERED: dexAMETHasone 20 MG/5 ML VIAL IM ONE (17:02)
[2019-10-21] MEDS ORDERED: ONDANSETRON 4 MG ODT TAB PO ONE (17:02)
--- NOTE | 2019-10-21 17:13 | Emergency Department Report ---
ED General Adult HPI - General Chief complaint: Pain General Stated complaint: BODY PAIN Time Seen by Provider: 10/21/19 16:55 Source: patient, EMS Mode of arrival: Stretcher Limitations: No Limitations - History of Present Illness Initial comments: 29-year-old female with a past medical history of lupus, end-stage renal disease on dialysis, seizure disorder, hypertension, and asthma presents to the hospital complaining of generalized pain secondary to presumed lupus attack since last night. Patient states that started with feeling a tightness and throbbing to her feet and lower extremities. Towards the completion of her dialysis session today she began experiencing generalized body pains from her feet all the way up towards her chest and felt dizzy. No complaints of shortness of breath, nausea, or vomiting. She also continues to have some left-sided abdominal pain. Previous medical reviewed and patient has several ER visits and admissions here last month for lupus flare, chest pain, and abdominal pain. Patient is not currently taking any medications for pain or steroids. Severity scale (0 -10): 9 - Related Data Previous Rx's Medication Instructions Recorded Last Taken Type Metoclopramide HCl [Reglan TAB] 5 mg PO TIDAC PRN #20 tablet 12/15/18 Unknown Rx Albuterol Sulfate [Proair 2 puff IH Q4H PRN #1 pump 02/17/19 Unknown Rx Respiclick] Sertraline [Zoloft] 25 mg PO QDAY tablet 02/17/19 Unknown Rx Clonidine HCl [Catapres] 0.3 mg PO TID #60 tablet 04/17/19 Unknown Rx Hydroxychloroquine [Plaquenil] 200 mg PO QDAY #30 tablet 04/17/19 Unknown Rx hydrALAZINE [Apresoline TAB] 100 mg PO TID #90 tab 04/17/19 Unknown Rx labetaloL [Labetalol 200mg TAB] 200 mg PO TID #60 tablet 04/17/19 Unknown Rx methOCARBAMOL [Robaxin TAB] 750 mg PO Q6HR PRN #60 tablet 05/30/19 Unknown Rx Albuterol INH(or & Nicu Only) 2 puff IH QID PRN #8.5 gram 09/19/19 Unknown Rx [ProAir HFA Inhaler] Ondansetron [Zofran ODT TAB] 4 mg PO Q8HR PRN #20 tab.rapdis 09/27/19 Unknown Rx diphenhydrAMINE [Benadryl CAP] 25 mg PO Q6HR PRN #20 capsule 09/27/19 Unknown Rx Butalb/Acetamin/Caff 50-325-40 2 tab PO Q8HR PRN #14 tablet 09/30/19 Unknown Rx [Fioricet 50-325-40] Ibuprofen [Motrin 800 MG tab] 800 mg PO Q8HR PRN #20 tablet 09/30/19 Unknown Rx Phenytoin [Dilantin] 100 mg PO TID #90 capsule.er 09/30/19 Unknown Rx levETIRAcetam [Keppra TAB] 750 mg PO BID #60 tablet 09/30/19 Unknown Rx Ondansetron [Zofran Odt] 4 mg PO Q8HR PRN #14 tab.rapdis 10/03/19 Unknown Rx HYDROcodone/APAP 5-325 [[place] 1 each PO Q6HR PRN #14 tablet 10/21/19 Unknown Rx 5-325 mg TAB] Prednisone [predniSONE 10 mg 10 mg PO .TAPER #1 tab.ds.pk 10/21/19 Unknown Rx (6-Day Pack, 21 Tabs)] Allergies Allergy/AdvReac Type Severity Reaction Status Date / Time acetaminophen [From Percocet] Allergy Itching Verified 04/21/18 08:28 lisinopril Allergy Swelling Verified 04/21/18 08:28 metoprolol Allergy Unknown Verified 04/21/18 08:28 oxycodone [From Percocet] Allergy Itching Verified 04/21/18 08:28 oxycodone HCl [From Percocet] AdvReac Unknown Verified 04/21/18 08:28 ED Review of Systems ROS: Stated complaint: BODY PAIN Other details as noted in HPI Comment: All other systems reviewed and negative ED Past Medical Hx - Past Medical History Hx Hypertension: Yes Hx Congestive Heart Failure: Yes Hx Diabetes: Yes Hx Renal Disease: Yes (HD T,THUR,SAT) Hx Arthritis: Yes Hx Headaches / Migraines: Yes Hx Seizures: Yes Hx Asthma: Yes Hx COPD: Yes Hx HIV: No Additional medical history: Lupus - Surgical History Additional Surgical History: RIGHT ARM graft - Social History Smoking Status: Former Smoker - Medications Home Medications: Home Medications Medication Instructions Recorded Confirmed Last Taken Type Metoclopramide HCl [Reglan TAB] 5 mg PO TIDAC PRN #20 tablet 12/15/18 10/03/19 Unknown Rx Albuterol Sulfate [Proair 2 puff IH Q4H PRN #1 pump 02/17/19 10/03/19 Unknown Rx Respiclick] Sertraline [Zoloft] 25 mg PO QDAY tablet 02/17/19 10/03/19 Unknown Rx Clonidine HCl [Catapres] 0.3 mg PO TID #60 tablet 04/17/19 10/03/19 Unknown Rx Hydroxychloroquine [Plaquenil] 200 mg PO QDAY #30 tablet 04/17/19 10/03/19 Unknown Rx hydrALAZINE [Apresoline TAB] 100 mg PO TID #90 tab 04/17/19 10/03/19 Unknown Rx labetaloL [Labetalol 200mg TAB] 200 mg PO TID #60 tablet 04/17/19 10/03/19 Unknown Rx methOCARBAMOL [Robaxin TAB] 750 mg PO Q6HR PRN #60 tablet 05/30/19 10/03/19 Unkn own Rx Albuterol INH(or & Nicu Only) 2 puff IH QID PRN #8.5 gram 09/19/19 10/03/19 Unknown Rx [ProAir HFA Inhaler] Ondansetron [Zofran ODT TAB] 4 mg PO Q8HR PRN #20 tab.rapdis 09/27/19 10/03/19 Unknown Rx diphenhydrAMINE [Benadryl CAP] 25 mg PO Q6HR PRN #20 capsule 09/27/19 10/03/19 Unknown Rx Butalb/Acetamin/Caff 50-325-40 2 tab PO Q8HR PRN #14 tablet 09/30/19 10/03/19 Unknown Rx [Fioricet 50-325-40] Ibuprofen [Motrin 800 MG tab] 800 mg PO Q8HR PRN #20 tablet 09/30/19 10/03/19 Unknown Rx Phenytoin [Dilantin] 100 mg PO TID #90 capsule.er 09/30/19 10/03/19 Unknown Rx levETIRAcetam [Keppra TAB] 750 mg PO BID #60 tablet 09/30/19 10/03/19 Unknown Rx Ondansetron [Zofran Odt] 4 mg PO Q8HR PRN #14 tab.rapdis 10/03/19 Unknown Rx HYDROcodone/APAP 5-325 [[place] 1 each PO Q6HR PRN #14 tablet 10/21/19 Unknown Rx 5-325 mg TAB] Prednisone [predniSONE 10 mg 10 mg PO .TAPER #1 tab.ds.pk 10/21/19 Unknown Rx (6-Day Pack, 21 Tabs)] ED Physical Exam - General Limitations: No Limitations - Other Other exam information: General: No acute distress Head: Atraumatic Eyes: normal appearance ENT: Moist mucous membranes Neck: Normal appearance, no midline tenderness Chest: Clear to auscultation bilaterally, anterior chest wall tender to palpate CV: Regular rate and rhythm Abdomen: Soft, normal bowel sounds, left-sided abdominal tenderness nondistende d, no rebound or guarding Back: Normal inspection Extremity: Normal inspection, generalized musculoskeletal pain full range of motion Neuro: Alert O x 3, no facial asymmetry, speech clear, no gross motor sensory deficit Psych: Appropriate behavior Skin: No rash ED Course Vital Signs 10/21/19 10/21/19 10/21/19 16:34 16:45 16:47 Temperature 98.3 F Pulse Rate 96 H 88 Respiratory 21 22 Rate Blood Pressure 165/109 Blood Pressure 165/109 [Left] O2 Sat by Pulse 99 95 100 Oximetry 10/21/19 10/21/19 10/21/19 17:45 17:56 18:26 Temperature Pulse Rate 97 H 96 H Respiratory 21 19 19 Rate Blood Pressure 173/113 Blood Pressure 160/102 [Left] O2 Sat by Pulse 99 100 Oximetry 10/21/19 20:42 Temperature Pulse Rate Respiratory 16 Rate Blood Pressure Blood Pressure [Left] O2 Sat by Pulse Oximetry ED Medical Decision Making - Lab Data Result diagrams: 10/21/19 17:22 10/21/19 17:22 Lab Results 10/21/19 10/21/19 10/21/19 Range/Units 17:22 17:22 17:22 WBC 3.0 L (4.5-11.0) K/mm3 RBC 2.75 L (3.65-5.03) M/mm3 Hgb 8.6 L (10.1-14.3) gm/dl Hct 25.8 L (30.3-42.9) % MCV 94 (79-97) fl MCH 31 (28-32) pg MCHC 33 (30-34) % RDW 15.7 H (13.2-15.2) % Plt Count 204 (140-440) K/mm3 Sodium 136 L (137-145) mmol/L Potassium 3.5 L (3.6-5.0) mmol/L Chloride 99.6 (98-107) mmol/L Carbon Dioxide 23 (22-30) mmol/L Anion Gap 17 mmol/L BUN 10 (7-17) mg/dL Creatinine 3.5 H (0.7-1.2) mg/dL Estimated GFR 19 ml/min BUN/Creatinine Ratio 3 % Glucose 92 (65-100) mg/dL Calcium 8.9 (8.4-10.2) mg/dL Total Bilirubin 0.30 (0.1-1.2) mg/dL AST 14 (5-40) units/L ALT < 5 L (7-56) units/L Alkaline Phosphatase 123 (35-129) units/L Total Protein 8.7 H (6.3-8.2) g/dL Albumin 3.0 L (3.9-5) g/dL Albumin/Globulin Ratio 0.5 % HCG, Quant < 2 (0-4) mIU/mL Critical Care Time: No Critical care attestation.: If time is entered above; I have spent that time in minutes in the direct care of this critically ill patient, excluding procedure time. ED Disposition Clinical Impression: ESRD (end stage renal disease), Lupus (systemic lupus erythematosus), Musculoskeletal pain Disposition: OP ADMIT IP TO THIS HOSP Is pt being admited?: No Condition: Stable Instructions: Musculoskeletal Pain (ED) Additional Instructions: Take the medication as prescribed. Follow-up with your doctor or doctor/clinic provided. Return if symptoms worsen as indicated by your discharge instructions. Prescriptions: HYDROcodone/APAP 5-325 [Reese 5-325 mg TAB] 1 each PO Q6HR PRN #14 tablet PRN Reason: Pain Prednisone [predniSONE 10 mg (6-Day Pack, 21 Tabs)] 10 mg PO .TAPER #1 tab.ds.pk Referrals: PRIMARY CARE, [Primary Care Provider] - 3-5 Days ROCIO TOMAS MD [Staff Physician] - 3-5 Days history professormd [Other] - 3-5 Days Time of Disposition: 20:44
[2019-10-21 17:36] LABS: Hematocrit 25.8 % (30.3-42.9); Hemoglobin 8.6 gm/dl (10.1-14.3); Mean Corpuscular HGB Conc 33 % (30-34); Mean Corpuscular Volume 94 fl (79-97); Platelet Count 204 K/mm3 (140-440); Red Blood Count 2.75 M/mm3 (3.65-5.03); Red Cell Distribution Width 15.7 % (13.2-15.2)
[2019-10-21 17:56] LABS: BUN/Creatinine Ratio 3; Blood Urea Nitrogen 10 mg/dL (7-17); Calcium 8.9 mg/dL (8.4-10.2); Hemolysis Index 15
[2019-10-21 18:02] LABS: Alanine Aminotransferase < 5 units/L (7-56)
--- NOTE | 2019-10-21 18:26 | XRay Report ---
Chest single view INDICATION: Chest pain IMPRESSION: Cardiomegaly with mild bilateral interstitial edema and pleural effusions Signer Name: Olman Horton MD Signed: 10/21/2019 6:21 PM Workstation Name: [id number]
[2019-10-21] MEDS ORDERED: diphenhydrAMINE 50 MG/ML VIAL IV ONE (19:19)
[2019-10-21] MEDS: MORPHINE 4 MG/1 ML INJ IV ONE ×4 (20:41→20:50)
[2019-10-21 21:25] VITALS: BP 170/110
== END 2019-10-21 22:19 | disposition admitted as inpatient to this hospital (09) ==
LOC: ED 15:23
DX: L93.0 Discoid lupus erythematosus (principal); M79.18 Myalgia, other site; E11.22 Type 2 diabetes mellitus with diabetic chronic kidney disease; I13.2 Hypertensive heart and chronic kidney disease with heart failure and with stage 5 chronic kidney disease, or end stage renal disease; I50.9 Heart failure, unspecified; N18.6 End stage renal disease; Z99.2 Dependence on renal dialysis; J44.9 Chronic obstructive pulmonary disease, unspecified; G43.909 Migraine, unspecified, not intractable, without status migrainosus; M19.90 Unspecified osteoarthritis, unspecified site
CPT/HCPCS: 36415; 71045; 80053; 84702; 85027; 93005; 93010; 96372; 96374; 96375; 99284; J1100; J1170; J1200; J2270; Q0162

== ENCOUNTER 2019-10-26 15:52 | Emergency (ER) | payer MEDICARE ==
--- NOTE | 2019-10-26 16:18 | Emergency Department Report ---
ED General Adult HPI - General Stated complaint: SEIZURE - History of Present Illness Initial comments: 29 YO Female with HTN, Nicotine Dependence, Lupus, OA, Cocaine Dependence, S eizure Disorder, Asthma, Migraine Headache, ESRD on HD (T,R,Sa) presents with complaint of back pain, headache and bilateral pain in feet. Patient states that she completed dialysis. Patient does not know if she had a seizure or not while in dialysis. Patient recently evaluated for abdominal pain at the end of September 2019 and had a recent discharge for chest pain 5 days ago. Patient complains of pain in LUQ that she also had on prior visit. Patient had CT previously which show slowly the presence of ovarian cyst. 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 Patient also was recently admitted for chest pain and discharged by hospitalist service. - Related Data Previous Rx's Medication Instructions Recorded Last Taken Type Metoclopramide HCl [Reglan TAB] 5 mg PO TIDAC PRN #20 tablet 12/15/18 Unknown Rx Albuterol Sulfate [Proair 2 puff IH Q4H PRN #1 pump 02/17/19 Unknown Rx Respiclick] Sertraline [Zoloft] 25 mg PO QDAY tablet 02/17/19 Unknown Rx Clonidine HCl [Catapres] 0.3 mg PO TID #60 tablet 04/17/19 Unknown Rx Hydroxychloroquine [Plaquenil] 200 mg PO QDAY #30 tablet 04/17/19 Unknown Rx hydrALAZINE [Apresoline TAB] 100 mg PO TID #90 tab 04/17/19 Unknown Rx labetaloL [Labetalol 200mg TAB] 200 mg PO TID #60 tablet 04/17/19 Unknown Rx methOCARBAMOL [Robaxin TAB] 750 mg PO Q6HR PRN #60 tablet 05/30/19 Unknown Rx Albuterol INH(or & Nicu Only) 2 puff IH QID PRN #8.5 gram 09/19/19 Unknown Rx [ProAir HFA Inhaler] Ondansetron [Zofran ODT TAB] 4 mg PO Q8HR PRN #20 tab.rapdis 09/27/19 Unknown Rx diphenhydrAMINE [Benadryl CAP] 25 mg PO Q6HR PRN #20 capsule 09/27/19 Unknown Rx Butalb/Acetamin/Caff 50-325-40 2 tab PO Q8HR PRN #14 tablet 09/30/19 Unknown Rx [Fioricet 50-325-40] Ibuprofen [Motrin 800 MG tab] 800 mg PO Q8HR PRN #20 tablet 09/30/19 Unknown Rx Phenytoin [Dilantin] 100 mg PO TID #90 capsule.er 09/30/19 Unknown Rx levETIRAcetam [Keppra TAB] 750 mg PO BID #60 tablet 09/30/19 Unknown Rx Ondansetron [Zofran Odt] 4 mg PO Q8HR PRN #14 tab.rapdis 10/03/19 Unknown Rx HYDROcodone/APAP 5-325 [[place] 1 each PO Q6HR PRN #14 tablet 10/21/19 Unknown Rx 5-325 mg TAB] Prednisone [predniSONE 10 mg 10 mg PO .TAPER #1 tab.ds.pk 10/21/19 Unknown Rx (6-Day Pack, 21 Tabs)] Allergies Allergy/AdvReac Type Severity Reaction Status Date / Time acetaminophen [From Percocet] Allergy Itching Verified 04/21/18 08:28 lisinopril Allergy Swelling Verified 04/21/18 08:28 metoprolol Allergy Unknown Verified 04/21/18 08:28 oxycodone [From Percocet] Allergy Itching Verified 04/21/18 08:28 oxycodone HCl [From Percocet] AdvReac Unknown Verified 04/21/18 08:28 ED Review of Systems ROS: Stated complaint: SEIZURE Other details as noted in HPI ED Past Medical Hx - Past Medical History Hx Hypertension: Yes Hx Congestive Heart Failure: Yes Hx Diabetes: Yes Hx Renal Disease: Yes (HD T,THUR,SAT) Hx Arthritis: Yes Hx Headaches / Migraines: Yes Hx Seizures: Yes Hx Asthma: Yes Hx COPD: Yes Hx HIV: No Additional medical history: Lupus - Surgical History Additional Surgical History: RIGHT ARM graft - Social History Smoking Status: Former Smoker - Medications Home Medications: Home Medications Medication Instructions Recorded Confirmed Last Taken Type Metoclopramide HCl [Reglan TAB] 5 mg PO TIDAC PRN #20 tablet 12/15/18 10/03/19 Unknown Rx Albuterol Sulfate [Proair 2 puff IH Q4H PRN #1 pump 02/17/19 10/03/19 Unknown Rx Respiclick] Sertraline [Zoloft] 25 mg PO QDAY tablet 02/17/19 10/03/19 Unknown Rx Clonidine HCl [Catapres] 0.3 mg PO TID #60 tablet 04/17/19 10/03/19 Unknown Rx Hydroxychloroquine [Plaquenil] 200 mg PO QDAY #30 tablet 04/17/19 10/03/19 Unknown Rx hydrALAZINE [Apresoline TAB] 100 mg PO TID #90 tab 04/17/19 10/03/19 Unknown Rx labetaloL [Labetalol 200mg TAB] 200 mg PO TID #60 tablet 04/17/19 10/03/19 Unknown Rx methOCARBAMOL [Robaxin TAB] 750 mg PO Q6HR PRN #60 tablet 05/30/19 10/03/19 U nknown Rx Albuterol INH(or & Nicu Only) 2 puff IH QID PRN #8.5 gram 09/19/19 10/03/19 Unknown Rx [ProAir HFA Inhaler] Ondansetron [Zofran ODT TAB] 4 mg PO Q8HR PRN #20 tab.rapdis 09/27/19 10/03/19 Unknown Rx diphenhydrAMINE [Benadryl CAP] 25 mg PO Q6HR PRN #20 capsule 09/27/19 10/03/19 U nknown Rx Butalb/Acetamin/Caff 50-325-40 2 tab PO Q8HR PRN #14 tablet 09/30/19 10/03/19 Unknown Rx [Fioricet 50-325-40] Ibuprofen [Motrin 800 MG tab] 800 mg PO Q8HR PRN #20 tablet 09/30/19 10/03/19 Unknown Rx Phenytoin [Dilantin] 100 mg PO TID #90 capsule.er 09/30/19 10/03/19 Unknown Rx levETIRAcetam [Keppra TAB] 750 mg PO BID #60 tablet 09/30/19 10/03/19 Unknown Rx Ondansetron [Zofran Odt] 4 mg PO Q8HR PRN #14 tab.rapdis 10/03/19 Unknown Rx HYDROcodone/APAP 5-325 [[place] 1 each PO Q6HR PRN #14 tablet 10/21/19 Unknown Rx 5-325 mg TAB] Prednisone [predniSONE 10 mg 10 mg PO .TAPER #1 tab.ds.pk 10/21/19 Unknown Rx (6-Day Pack, 21 Tabs)] ED Course Vital Signs 10/26/19 10/26/19 10/26/19 16:18 16:19 16:38 Temperature 98.3 F Pulse Rate 95 H 94 H 104 H Respiratory 21 18 16 Rate Blood Pressure 178/114 178/114 Blood Pressure [Left] O2 Sat by Pulse 100 100 Oximetry 10/26/19 10/26/19 10/26/19 16:46 17:00 17:02 Temperature Pulse Rate 92 H 99 H 93 H Respiratory 11 L 23 16 Rate Blood Pressure 178/114 178/114 Blood Pressure 174/104 [Left] O2 Sat by Pulse 98 98 Oximetry 10/26/19 10/26/19 10/26/19 17:16 17:30 17:45 Temperature Pulse Rate 96 H 92 H 91 H Respiratory 21 19 26 H Rate Blood Pressure 174/104 168/102 169/101 Blood Pressure [Left] O2 Sat by Pulse 98 100 96 Oximetry ED Medical Decision Making - Lab Data Result diagrams: 10/26/19 16:44 10/26/19 16:44 - Medical Decision Making Patient received two doses of IM Dilaudid while in the ER which helped to improve pain. Patient potassium is stable. 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 - Differential Diagnosis STEMI; NSTEMI; Dehydration; Electrolyte Abnormality; Anemia Critical care attestation.: If time is entered above; I have spent that time in minutes in the direct care of this critically ill patient, excluding procedure time. ED Disposition Clinical Impression: ESRD (end stage renal disease), Lupus (systemic lupus erythematosus), HTN (hypertension), Musculoskeletal pain Disposition: - TO HOME OR SELFCARE Is pt being admited?: No Does the pt Need Aspirin: No Condition: Stable Instructions: Hypertension (ED), Chronic Kidney Disease (ED) Time of Disposition: 18:41 Print Language: FIJIAN
[2019-10-26] MEDS ORDERED: oxyCODONE /ACETAMINOPHEN 5-325MG TAB PO PRN (16:21)
[2019-10-26] MEDS ORDERED: diphenhydrAMINE 25 MG/10 ML ORAL LIQUID PO ONE (16:21)
[2019-10-26] MEDS ORDERED: diphenhydrAMINE 25 MG CAP PO STA (16:21)
[2019-10-26] MEDS ORDERED: HYDROmorphone 2 MG/1 ML INJ IM ONE ×2 (16:31→18:38)
[2019-10-26] MEDS ORDERED: diphenhydrAMINE 50 MG/ML VIAL IM ONE (16:32)
--- NOTE | 2019-10-26 16:55 | Cat Scan Report ---
CT HEAD WITHOUT CONTRAST INDICATION : seizure; headache. TECHNIQUE: Axial, coronal and sagittal CT imaging was performed from the skull apex through the skul l base without contrast. All CT scans at this location are performed using CT dose reduction for ALA RA by means of automated exposure control. COMPARISON: CT head without contrast from 10/03/2019. FINDINGS: PARENCHYMA: No mass, midline shift, hemorrhage, extraaxial collection or acute territorial infarctio n. VENTRICLES: Symmetric and normal in size. SOFT TISSUES: No significant abnormality of the included soft tissues/orbits. BONES: No acute osseous abnormality. SINUSES: No significant abnormality. ADDITIONAL FINDINGS: None. IMPRESSION: No acute intracranial abnormality. Signer Name: Matthew Hernandez MD Signed: 10/26/2019 4:50 PM Workstation Name: [id number]
--- NOTE | 2019-10-26 17:33 | XRay Report ---
CHEST 1 VIEW INDICATION: chest pain. COMPARISON: 10/21/2019 FINDINGS: Support devices: None. Heart: Stable moderate cardiomegaly. Lungs/Pleura: Mild interstitial thickening is likely vascular congestion. New nodular density left ba se is likely a nipple shadow. Additional findings: None. IMPRESSION: 1. Stable cardiomegaly. 2. Mild vascular congestion. 3. Probable nipple shadow left base. Follow-up PA and lateral chest is recommended. Signer Name: Franc Browne MD Signed: 10/26/2019 5:29 PM Workstation Name: [id number]
[2019-10-26 17:42] LABS: Hematocrit 24.7 % (30.3-42.9); Hemoglobin 8.3 gm/dl (10.1-14.3); Mean Corpuscular HGB Conc 34 % (30-34); Mean Corpuscular Volume 94 fl (79-97); Red Blood Count 2.62 M/mm3 (3.65-5.03); Red Cell Distribution Width 15.6 % (13.2-15.2)
[2019-10-26 17:59] LABS: BUN/Creatinine Ratio 3; Blood Urea Nitrogen 16 mg/dL (7-17); Calcium 8.5 mg/dL (8.4-10.2); Hemolysis Index 21
[2019-10-26 18:09] LABS: Alanine Aminotransferase < 5 units/L (7-56)
[2019-10-26] MEDS ORDERED: oxyCODONE /ACETAMINOPHEN 5-325MG TAB PO ONE (18:37)
[2019-10-26 19:46] VITALS: BP 159/97
[2019-10-26 19:54] LABS: Platelet Count 220 K/mm3 (140-440)
== END 2019-10-26 19:46 | disposition home or self-care (01) ==
LOC: ED 15:52
DX: I13.2 Hypertensive heart and chronic kidney disease with heart failure and with stage 5 chronic kidney disease, or end stage renal disease (principal); N18.6 End stage renal disease; E11.22 Type 2 diabetes mellitus with diabetic chronic kidney disease; I50.9 Heart failure, unspecified; M79.18 Myalgia, other site; M32.9 Systemic lupus erythematosus, unspecified; M19.90 Unspecified osteoarthritis, unspecified site; J44.9 Chronic obstructive pulmonary disease, unspecified; G43.909 Migraine, unspecified, not intractable, without status migrainosus; Z87.891 Personal history of nicotine dependence; Z98.890 Other specified postprocedural states; Z88.8 Allergy status to other drugs, medicaments and biological substances; Z88.6 Allergy status to analgesic agent; Z79.899 Other long term (current) drug therapy
CPT/HCPCS: 36415; 70450; 71045; 80053; 85027; 96372; 99285; J1170; J1200

== ENCOUNTER 2019-10-28 16:50 | Emergency (ER) | payer MEDICARE ==
[2019-10-28] MEDS ORDERED: HYDROmorphone 1 MG/1 ML INJ IV ONE ×2 (17:40→20:45)
--- NOTE | 2019-10-28 17:49 | Emergency Department Report ---
HPI - General Chief Complaint: Pain General Time Seen by Provider: 10/28/19 17:27 - HPI HPI: 29-year-old -[place] female presents to the emergency department from her dialysis with complaint of some back pain, left arm pain, bilateral foot pain that started towards the end of her dialysis session. She has a past medical history of lupus, asthma, CHF, diabetes, migraine headaches, seizure disorder, hypertension and end-stage renal disease on hemodialysis on Friday//Friday. The patient was just seen in this emergency department 2 days ago for similar symptoms. She has also been worked up recently here for an ovarian cyst with lymphadenopathy, and some recent chest pain. 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 She has not seen an drain tile machine operator for "quite some time" and does not appear to have a primary care physician. She has not taken anything for symptoms prior to presentation today. ED Past Medical Hx - Past Medical History Previous Medical History?: Yes Hx Hypertension: Yes Hx Congestive Heart Failure: Yes Hx Diabetes: Yes Hx Renal Disease: Yes (HD T,,FRI) Hx Arthritis: Yes Hx Headaches / Migraines: Yes Hx Seizures: Yes Hx Asthma: Yes Hx COPD: Yes Hx HIV: No Additional medical history: Lupus - Surgical History Past Surgical History?: Yes Additional Surgical History: RIGHT ARM graft - Social History Smoking Status: Former Smoker Substance Use Type: None - Medications Home Medications: Home Medications Medication Instructions Recorded Confirmed Last Taken Type Metoclopramide HCl [Reglan TAB] 5 mg PO TIDAC PRN #20 tablet 12/15/18 10/03/19 Unknown Rx Albuterol Sulfate [Proair 2 puff IH Q4H PRN #1 pump 02/17/19 10/03/19 Unknown Rx Respiclick] Sertraline [Zoloft] 25 mg PO QDAY tablet 02/17/19 10/03/19 Unknown Rx Clonidine HCl [Catapres] 0.3 mg PO TID #60 tablet 04/17/19 10/03/19 Unknown Rx Hydroxychloroquine [Plaquenil] 200 mg PO QDAY #30 tablet 04/17/19 10/03/19 Unknown Rx hydrALAZINE [Apresoline TAB] 100 mg PO TID #90 tab 04/17/19 10/03/19 Unknown Rx labetaloL [Labetalol 200mg TAB] 200 mg PO TID #60 tablet 04/17/19 10/03/19 Unk nown Rx methOCARBAMOL [Robaxin TAB] 750 mg PO Q6HR PRN #60 tablet 05/30/19 10/03/19 Unknown Rx Albuterol INH(or & Nicu Only) 2 puff IH QID PRN #8.5 gram 09/19/19 10/03/19 Unknown Rx [ProAir HFA Inhaler] Ondansetron [Zofran ODT TAB] 4 mg PO Q8HR PRN #20 tab.rapdis 09/27/19 10/03/19 Unknown Rx diphenhydrAMINE [Benadryl CAP] 25 mg PO Q6HR PRN #20 capsule 09/27/19 10/03/19 Unknown Rx Butalb/Acetamin/Caff 50-325-40 2 tab PO Q8HR PRN #14 tablet 09/30/19 10/03/19 Unknown Rx [Fioricet 50-325-40] Ibuprofen [Motrin 800 MG tab] 800 mg PO Q8HR PRN #20 tablet 09/30/19 10/03/19 Unknown Rx Phenytoin [Dilantin] 100 mg PO TID #90 capsule.er 09/30/19 10/03/19 Unknown Rx levETIRAcetam [Keppra TAB] 750 mg PO BID #60 tablet 09/30/19 10/03/19 Unknown Rx Ondansetron [Zofran Odt] 4 mg PO Q8HR PRN #14 tab.rapdis 10/03/19 Unknown Rx HYDROcodone/APAP 5-325 [[place] 1 each PO Q6HR PRN #14 tablet 10/21/19 Unknown Rx 5-325 mg TAB] Prednisone [predniSONE 10 mg 10 mg PO .TAPER #1 tab.ds.pk 10/21/19 Unknown Rx (6-Day Pack, 21 Tabs)] ED Review of Systems ROS: Stated complaint: LT SIDE PX/WEAKNESS Other details as noted in HPI Comment: All other systems reviewed and negative Constitutional: denies: chills, fever Eyes: denies: eye pain, vision change ENT: denies: ear pain Respiratory: denies: cough, shortness of breath Cardiovascular: denies: chest pain, palpitations Gastrointestinal: denies: abdominal pain, vomiting Genitourinary: denies: dysuria, discharge Musculoskeletal: back pain, arthralgia, myalgia. denies: joint swelling Skin: denies: rash, lesions Neurological: denies: numbness, paresthesias Physical Exam - Physical Exam Vital Signs: Vital Signs 10/28/19 17:04 Temperature 98 F Pulse Rate 93 H Respiratory 18 Rate Blood Pressure 161/109 O2 Sat by Pulse 98 Oximetry Physical Exam: GENERAL: The patient is well-developed well-nourished. HENT: Normocephalic. Atraumatic. Patient has moist mucous membranes. EYES: Extraocular motions are intact. NECK: Supple. Trachea is midline. CHEST/LUNGS: Clear to auscultation. There is no respiratory distress noted. HEART/CARDIOVASCULAR: Regular. There is no tachycardia. ABDOMEN: Abdomen is soft, nontender. Patient has normal bowel sounds. There is no abdominal distention. SKIN: Skin is warm and dry. NEURO: The patient is awake, alert, and oriented. The patient is cooperative. The patient has no focal neurologic deficits. Normal speech. MUSCULOSKELETAL: There is no tenderness or deformity. There is no limitation range of motion. There is no evidence of acute injury. BACK: No midline thoracic or lumbar tenderness to palpation, step-off or deformity. There is bilateral lumbar paraspinal tenderness to palpation. ED Course Vital Signs 10/28/19 17:04 Temperature 98 F Pulse Rate 93 H Respiratory 18 Rate Blood Pressure 161/109 O2 Sat by Pulse 98 Oximetry ED Medical Decision Making - Lab Data Result diagrams: 10/28/19 18:18 10/28/19 18:18 - EKG Data -: EKG Interpreted by Nm EKG shows normal: sinus rhythm, axis, intervals, QRS complexes, ST-T waves Rate: normal - EKG Data When compared to previous EKG there are: previous EKG unavailable Interpretation: normal EKG - Medical Decision Making This patient presents to the emergency department with complaint of some back pain, bilateral lower extremity pain and generalized weakness. She has been seen here recently for similar symptoms. On examination she does not have any focal, motor or sensory deficits and her cranial nerves are intact. There has been no recent fall or trauma. Patient's labs have been unremarkable including CBC, metabolic panel and TSH except for the renal insufficiency consistent with her end-stage renal disease on hemodialysis. No hyperkalemia or electrolyte abnormality seen. Vital signs stable throughout her ED course including being afebrile. The patient was given some medication for analgesia and upon reevaluation she is feeling improved. The patient was seen ambulatory in the emergency department and both appears and feels stable. She appears safe for discharge home at this time and has been instructed to follow-up with her primary care physician, drain tile machine operator, and continue with her normal dialysis regimen. Otherwise she has been instructed to return to the emergency department with any worsening of her symptoms or any acute distress. - Differential Diagnosis Lupus, fibromyalgia, osteoarthritis, viral syndrome Critical Care Time: No Critical care attestation.: If time is entered above; I have spent that time in minutes in the direct care of this critically ill patient, excluding procedure time. ED Disposition Clinical Impression: ESRD (end stage renal disease) Lupus (systemic lupus erythematosus) Qualifiers: Systemic lupus erythematosus type: unspecified Systemic lupus erythematosus organ involvement: unspecified Qualified Code(s): M32.9 - Systemic lupus erythematosus, unspecified Hypertension Qualifiers: Hypertension type: essential hypertension Qualified Code(s): I10 - Essential (primary) hypertension Disposition: DC- TO HOME OR SELFCARE Is pt being admited?: No Condition: Stable Instructions: Hypertension (ED), End-Stage Kidney Disease (ED) Additional Instructions: Please follow-up with your primary care physician and drain tile machine operator. Please continue with your normal dialysis regimen. Return to the emergency department with any worsening of your symptoms or any acute distress. Referrals: PRIMARY MD NURA [Primary Care Provider] - 2-3 Days Time of Disposition: 21:52
[2019-10-28 18:38] LABS: Basophils % (Auto) 0.5 % (0.0-1.8); Eosinophils # (Auto) 0.1 K/mm3 (0.0-0.4); Eosinophils % (Auto) 3.1 % (0.0-4.3); Hematocrit 32.2 % (30.3-42.9); Hemoglobin 10.5 gm/dl (10.1-14.3); Lymphocytes # (Auto) 0.4 K/mm3 (1.2-5.4); Mean Corpuscular HGB Conc 33 % (30-34); Mean Corpuscular Volume 94 fl (79-97); Monocytes # (Auto) 0.3 K/mm3 (0.0-0.8); Monocytes % (Auto) 9.1 % (0.0-7.3); Platelet Count 176 K/mm3 (140-440); Red Blood Count 3.43 M/mm3 (3.65-5.03); Red Cell Distribution Width 15.5 % (13.2-15.2)
[2019-10-28] MEDS ORDERED: diphenhydrAMINE 50 MG/ML VIAL IV ONE (18:46)
[2019-10-28 18:48] LABS: Albumin 2.9 g/dL (3.9-5); BUN/Creatinine Ratio 3; Blood Urea Nitrogen 14 mg/dL (7-17); Calcium 8.7 mg/dL (8.4-10.2); Hemolysis Index 16
[2019-10-28 19:08] LABS: Alanine Aminotransferase < 5 units/L (7-56)
[2019-10-28 21:22] VITALS: BP 159/89
[2019-10-29] MEDS ORDERED: ONDANSETRON 4 MG ODT TAB ONE (02:32)
== END 2019-10-28 23:20 | disposition home or self-care (01) ==
LOC: ED 16:50
DX: I13.2 Hypertensive heart and chronic kidney disease with heart failure and with stage 5 chronic kidney disease, or end stage renal disease (principal); I50.9 Heart failure, unspecified; E11.22 Type 2 diabetes mellitus with diabetic chronic kidney disease; N18.6 End stage renal disease; M32.9 Systemic lupus erythematosus, unspecified; J44.9 Chronic obstructive pulmonary disease, unspecified; G43.909 Migraine, unspecified, not intractable, without status migrainosus; M19.90 Unspecified osteoarthritis, unspecified site; Z87.891 Personal history of nicotine dependence; Z88.8 Allergy status to other drugs, medicaments and biological substances; Z88.6 Allergy status to analgesic agent; Z86.69 Personal history of other diseases of the nervous system and sense organs; Z99.2 Dependence on renal dialysis; Z98.890 Other specified postprocedural states; Z79.899 Other long term (current) drug therapy
CPT/HCPCS: 36415; 80053; 84443; 85025; 93005; 93010; 96374; 96375; 96376; 99284; J1170; J1200; Q0162

== ENCOUNTER 2019-11-09 15:59 | Emergency (ER) | payer MEDICARE ==
[2019-11-09] MEDS ORDERED: levETIRAcetam 1000 MG/NS 0.75% 1,000 MG/100 ML BAG IV ONE (16:21)
--- NOTE | 2019-11-09 16:26 | Emergency Department Report ---
ED Seizure HPI - General Chief Complaint: Seizure Stated Complaint: SEIZURE Time Seen by Provider: 11/09/19 16:21 Source: patient, EMS Mode of arrival: Stretcher Limitations: No Limitations - History of Present Illness Initial Comments: 29 yo female with HTN, lupus, seizure disorder, ESRD on HD presents with seizure. She takes Keppra and Dilantin. THe seizure occurred after she finished her dialysis session today. She has been in her normal state of health. She has been compliant with her medication. MD Complaint: seizure -: This afternoon Witnessed:: Yes Trauma: No Seizure History: known seizure disorder Possible Precipitating Event: none Associated Symptoms: denies other symptoms Treatments Prior to Arrival: none - Related Data Previous Rx's Medication Instructions Recorded Last Taken Type Metoclopramide HCl [Reglan TAB] 5 mg PO TIDAC PRN #20 tablet 12/15/18 Unknown Rx Albuterol Sulfate [Proair 2 puff IH Q4H PRN #1 pump 02/17/19 Unknown Rx Respiclick] Sertraline [Zoloft] 25 mg PO QDAY tablet 02/17/19 Unknown Rx Clonidine HCl [Catapres] 0.3 mg PO TID #60 tablet 04/17/19 Unknown Rx Hydroxychloroquine [Plaquenil] 200 mg PO QDAY #30 tablet 04/17/19 Unknown Rx hydrALAZINE [Apresoline TAB] 100 mg PO TID #90 tab 04/17/19 Unknown Rx labetaloL [Labetalol 200mg TAB] 200 mg PO TID #60 tablet 04/17/19 Unknown Rx methOCARBAMOL [Robaxin TAB] 750 mg PO Q6HR PRN #60 tablet 05/30/19 Unknown Rx Albuterol INH(or & Nicu Only) 2 puff IH QID PRN #8.5 gram 09/19/19 Unknown Rx [ProAir HFA Inhaler] Ondansetron [Zofran ODT TAB] 4 mg PO Q8HR PRN #20 tab.rapdis 09/27/19 Unknown Rx diphenhydrAMINE [Benadryl CAP] 25 mg PO Q6HR PRN #20 capsule 09/27/19 Unknown Rx Butalb/Acetamin/Caff 50-325-40 2 tab PO Q8HR PRN #14 tablet 09/30/19 Unknown Rx [Fioricet 50-325-40] Ibuprofen [Motrin 800 MG tab] 800 mg PO Q8HR PRN #20 tablet 09/30/19 Unknown Rx Phenytoin [Dilantin] 100 mg PO TID #90 capsule.er 09/30/19 Unknown Rx levETIRAcetam [Keppra TAB] 750 mg PO BID #60 tablet 09/30/19 Unknown Rx Ondansetron [Zofran Odt] 4 mg PO Q8HR PRN #14 tab.rapdis 10/03/19 Unknown Rx HYDROcodone/APAP 5-325 [[place] 1 each PO Q6HR PRN #14 tablet 10/21/19 Unknown Rx 5-325 mg TAB] Prednisone [predniSONE 10 mg 10 mg PO .TAPER #1 tab.ds.pk 10/21/19 Unknown Rx (6-Day Pack, 21 Tabs)] Allergies Allergy/AdvReac Type Severity Reaction Status Date / Time acetaminophen [From Percocet] Allergy Itching Verified 11/09/19 16:15 lisinopril Allergy Swelling Verified 11/09/19 16:15 metoprolol Allergy Unknown Verified 11/09/19 16:15 oxycodone [From Percocet] Allergy Itching Verified 11/09/19 16:15 oxycodone HCl [From Percocet] AdvReac Unknown Verified 11/09/19 16:15 ED Review of Systems ROS: Stated complaint: SEIZURE Other details as noted in HPI Comment: All other systems reviewed and negative Constitutional: denies: fever, malaise Respiratory: denies: cough Cardiovascular: denies: chest pain Gastrointestinal: denies: abdominal pain Neurological: denies: headache ED Past Medical Hx - Past Medical History Previous Medical History?: Yes Hx Hypertension: Yes Hx Congestive Heart Failure: Yes Hx Diabetes: Yes Hx Renal Disease: Yes (HD T,THUR,SAT) Hx Arthritis: Yes Hx Headaches / Migraines: Yes Hx Seizures: Yes Hx Asthma: Yes Hx COPD: Yes Hx HIV: No Additional medical history: Lupus - Surgical History Past Surgical History?: Yes Additional Surgical History: RIGHT ARM graft - Social History Smoking Status: Former Smoker - Medications Home Medications: Home Medications Medication Instructions Recorded Confirmed Last Taken Type Metoclopramide HCl [Reglan TAB] 5 mg PO TIDAC PRN #20 tablet 12/15/18 10/03/19 Unknown Rx Albuterol Sulfate [Proair 2 puff IH Q4H PRN #1 pump 02/17/19 10/03/19 Unknown Rx Respiclick] Sertraline [Zoloft] 25 mg PO QDAY tablet 02/17/19 10/03/19 Unknown Rx Clonidine HCl [Catapres] 0.3 mg PO TID #60 tablet 04/17/19 10/03/19 Unknown Rx Hydroxychloroquine [Plaquenil] 200 mg PO QDAY #30 tablet 04/17/19 10/03/19 Unknown Rx hydrALAZINE [Apresoline TAB] 100 mg PO TID #90 tab 04/17/19 10/03/19 Unknown Rx labetaloL [Labetalol 200mg TAB] 200 mg PO TID #60 tablet 04/17/19 10/03/19 Unkno wn Rx methOCARBAMOL [Robaxin TAB] 750 mg PO Q6HR PRN #60 tablet 05/30/19 10/03/19 Unknown Rx Albuterol INH(or & Nicu Only) 2 puff IH QID PRN #8.5 gram 09/19/19 10/03/19 Unknown Rx [ProAir HFA Inhaler] Ondansetron [Zofran ODT TAB] 4 mg PO Q8HR PRN #20 tab.rapdis 09/27/19 10/03/19 Unknown Rx diphenhydrAMINE [Benadryl CAP] 25 mg PO Q6HR PRN #20 capsule 09/27/19 10/03/19 Unknown Rx Butalb/Acetamin/Caff 50-325-40 2 tab PO Q8HR PRN #14 tablet 09/30/19 10/03/19 Unknown Rx [Fioricet 50-325-40] Ibuprofen [Motrin 800 MG tab] 800 mg PO Q8HR PRN #20 tablet 09/30/19 10/03/19 Unknown Rx Phenytoin [Dilantin] 100 mg PO TID #90 capsule.er 09/30/19 10/03/19 Unknown Rx levETIRAcetam [Keppra TAB] 750 mg PO BID #60 tablet 09/30/19 10/03/19 Unknown Rx Ondansetron [Zofran Odt] 4 mg PO Q8HR PRN #14 tab.rapdis 10/03/19 Unknown Rx HYDROcodone/APAP 5-325 [[place] 1 each PO Q6HR PRN #14 tablet 10/21/19 Unknown Rx 5-325 mg TAB] Prednisone [predniSONE 10 mg 10 mg PO .TAPER #1 tab.ds.pk 10/21/19 Unknown Rx (6-Day Pack, 21 Tabs)] ED Physical Exam - General Limitations: No Limitations General appearance: alert, in no apparent distress - Head Head exam: Present: atraumatic, normocephalic - Eye Eye exam: Present: normal appearance - ENT ENT exam: Present: mucous membranes moist - Neck Neck exam: Present: normal inspection, full ROM - Respiratory Respiratory exam: Present: normal lung sounds bilaterally. Absent: respiratory distress, wheezes, rales, rhonchi - Cardiovascular Cardiovascular Exam: Present: regular rate, normal rhythm, normal heart sounds. Absent: systolic murmur, diastolic murmur, rubs, gallop - GI/Abdominal GI/Abdominal exam: Present: soft, normal bowel sounds. Absent: distended, tenderness, guarding - Extremities Exam Extremities exam: Present: normal inspection - Neurological Exam Neurological exam: Present: alert, oriented X3 - Psychiatric Psychiatric exam: Present: normal affect, normal mood - Skin Skin exam: Present: warm, dry, intact, normal color, other (Right upper extremity AV access covered with bandages). Absent: rash ED Course Vital Signs 11/09/19 11/09/19 16:12 16:41 Temperature 97.7 F Pulse Rate 80 84 Respiratory 16 18 Rate Blood Pressure 157/99 Blood Pressure 144/95 [Left] O2 Sat by Pulse 100 100 Oximetry ED Medical Decision Making - Medical Decision Making Ms. Turner feels well: Breakthrough seizure with known history of seizure disorder. Received Keppra PO load and IM lorazepam in the emergency department. Critical care attestation.: If time is entered above; I have spent that time in minutes in the direct care of this critically ill patient, excluding procedure time. ED Disposition Clinical Impression: Breakthrough seizure, ESRD (end stage renal disease), Recurrent seizures Disposition: TO HOME OR SELFCARE Is pt being admited?: No Does the pt Need Aspirin: No Condition: Stable
[2019-11-09 16:43] VITALS: BP 144/95
[2019-11-09] MEDS ORDERED: levETIRAcetam 500 MG TAB PO ONE (17:25)
[2019-11-09] MEDS ORDERED: LORazepam 2 MG/ML VIAL IM STA (17:26)
== END 2019-11-09 19:33 | disposition home or self-care (01) ==
LOC: ED 15:59
DX: G40.909 Epilepsy, unspecified, not intractable, without status epilepticus (principal); E11.22 Type 2 diabetes mellitus with diabetic chronic kidney disease; I13.2 Hypertensive heart and chronic kidney disease with heart failure and with stage 5 chronic kidney disease, or end stage renal disease; I50.9 Heart failure, unspecified; N18.6 End stage renal disease; M19.90 Unspecified osteoarthritis, unspecified site; G43.909 Migraine, unspecified, not intractable, without status migrainosus; J44.9 Chronic obstructive pulmonary disease, unspecified; Z87.891 Personal history of nicotine dependence; Z79.1 Long term (current) use of non-steroidal anti-inflammatories (NSAID); Z79.899 Other long term (current) drug therapy; Z88.5 Allergy status to narcotic agent; Z88.4 Allergy status to anesthetic agent; Z88.8 Allergy status to other drugs, medicaments and biological substances

== ENCOUNTER 2019-11-25 20:23 | Observation (INO) | payer MEDICARE ==
--- NOTE | 2019-11-25 23:19 | XRay Report ---
CLINICAL DATA: Bilateral rib pain TECHNICAL DATA: 4 views were obtained. FINDINGS: Exam is compared to 11/16/2019 Soft tissues are well imaged. Bones are intact. No evidence of fracture. No obvious pneumothorax. Parenchymal changes left lower lobe with small bilateral pleural effusions. Heart size is enlarged. Stents present left brachial vessel IMPRESSION: No evidence of rib fractures Signer Name: Jayden Sanders MD Signed: 11/25/2019 11:14 PM Workstation Name: [id number]
[2019-11-25 23:21] LABS: Hematocrit 27.2 % (30.3-42.9); Hemoglobin 8.7 gm/dl (10.1-14.3); Mean Corpuscular HGB Conc 32 % (30-34); Mean Corpuscular Volume 94 fl (79-97); Platelet Count 306 K/mm3 (140-440); Red Blood Count 2.91 M/mm3 (3.65-5.03); Red Cell Distribution Width 16.3 % (13.2-15.2)
[2019-11-25 23:39] LABS: BUN/Creatinine Ratio 2; Blood Urea Nitrogen 9 mg/dL (7-17); Calcium 8.9 mg/dL (8.4-10.2); Hemolysis Index 3
[2019-11-25 23:48] LABS: Alanine Aminotransferase < 5 units/L (7-56)
[2019-11-26] MEDS ORDERED: HYDROmorphone 2 MG/1 ML INJ IV ONE (03:48)
[2019-11-26] MEDS ORDERED: ASPIRIN 325 MG TAB PO ONE (03:48)
[2019-11-26] MEDS ORDERED: methylPREDNISolone Sod Succinate 125 MG/2 ML INJ IV ONE (03:48)
--- NOTE | 2019-11-26 03:48 | Emergency Department Report ---
ED Chest Pain HPI - General Chief Complaint: Back Pain/Injury Stated Complaint: LUPUS FLAIR RIB PAIN LEG AND BACK PAIN Time Seen by Provider: 11/26/19 03:41 Source: patient, EMS Mode of arrival: Ambulatory Limitations: No Limitations - History of Present Illness Initial Comments: Patient is a 29-year-old female that presents emergency room with complaints of chest pain, shortness of breath, generalized body pain, lupus flareup. Patient states she is having bilateral lower rib pain at a 10 out of 10. Patient states that she is also having substernal chest pain that is a 9 out of 10. Patient states her generalized body pain is a 6 out of 10. Patient states that her pain in her ribs and generalized body pain is better with rest and worse with palpation and movement. Patient states that her chest pain is better with rest and worse with exertion and movement. Patient states she feels like this is a lupus flareup. Patient states she is also having shortness of breath. Patient states her shortness of breath is better with rest and worse with movement. Patient states her symptoms started 5 hours ago and are worsening. Patient states that she is on dialysis and she had dialysis today. Patient states she does dialysis on Friday, and Friday. Patient states she has a past medical history of congestive heart failure, asthma, COPD, diabetes, headache, migraines, hypertension, end-stage renal disease on dialysis. Patient states her graft is in her right arm. . Patient denies recent travel. Patient denies recent international travel. Patient denies exposure to the novel coronavirus. Patient denies sick contacts. Patient denies fever and chills. Patient denies cough. Patient denies diarrhea. Patient denies coming in contact with anybody with symptoms of the novel coronavirus. MD Complaint: chest pain -: Sudden - Related Data Previous Rx's Medication Instructions Recorded Last Taken Type Metoclopramide HCl [Reglan TAB] 5 mg PO TIDAC PRN #20 tablet 12/15/18 Unknown Rx Albuterol Sulfate [Proair 2 puff IH Q4H PRN #1 pump 02/17/19 Unknown Rx Respiclick] Sertraline [Zoloft] 25 mg PO QDAY tablet 02/17/19 Unknown Rx Clonidine HCl [Catapres] 0.3 mg PO TID #60 tablet 04/17/19 Unknown Rx Hydroxychloroquine [Plaquenil] 200 mg PO QDAY #30 tablet 04/17/19 Unknown Rx hydrALAZINE [Apresoline TAB] 100 mg PO TID #90 tab 04/17/19 Unknown Rx labetaloL [Labetalol 200mg TAB] 200 mg PO TID #60 tablet 04/17/19 Unknown Rx methOCARBAMOL [Robaxin TAB] 750 mg PO Q6HR PRN #60 tablet 05/30/19 Unknown Rx Albuterol INH(or & Nicu Only) 2 puff IH QID PRN #8.5 gram 09/19/19 Unknown Rx [ProAir HFA Inhaler] Ondansetron [Zofran ODT TAB] 4 mg PO Q8HR PRN #20 tab.rapdis 09/27/19 Unknown Rx diphenhydrAMINE [Benadryl CAP] 25 mg PO Q6HR PRN #20 capsule 09/27/19 Unknown Rx Butalb/Acetamin/Caff 50-325-40 2 tab PO Q8HR PRN #14 tablet 09/30/19 Unknown Rx [Fioricet 50-325-40] Ibuprofen [Motrin 800 MG tab] 800 mg PO Q8HR PRN #20 tablet 09/30/19 Unknown Rx Phenytoin [Dilantin] 100 mg PO TID #90 capsule.er 09/30/19 Unknown Rx levETIRAcetam [Keppra TAB] 750 mg PO BID #60 tablet 09/30/19 Unknown Rx Ondansetron [Zofran ODT TAB] 4 mg PO Q8HR PRN #14 tab.rapdis 10/03/19 Unknown Rx HYDROcodone/APAP 5-325 [[place] 1 each PO Q6HR PRN #14 tablet 10/21/19 Unknown Rx 5-325 mg TAB] Prednisone [predniSONE 10 mg 10 mg PO .TAPER #1 tab.ds.pk 10/21/19 Unknown Rx (6-Day Pack, 21 Tabs)] Allergies Allergy/AdvReac Type Severity Reaction Status Date / Time acetaminophen [From Percocet] Allergy Itching Verified 11/09/19 16:15 lisinopril Allergy Swelling Verified 11/09/19 16:15 metoprolol Allergy Unknown Verified 11/09/19 16:15 oxycodone [From Percocet] Allergy Itching Verified 11/09/19 16:15 oxycodone HCl [From Percocet] AdvReac Unknown Verified 11/09/19 16:15 Heart Score - HEART Score History: Moderately suspicious EKG: Non-specific Age: < 45 Risk factors: > 3 risk factors or hx of atherosclerotic disease Troponin: 1-3x normal limit HEART Score: 5 ED Review of Systems ROS: Stated complaint: LUPUS FLAIR RIB PAIN LEG AND BACK PAIN Other details as noted in HPI Constitutional: denies: chills, fever Eyes: denies: eye pain, eye discharge, vision change ENT: denies: ear pain, throat pain Respiratory: shortness of breath. denies: cough, wheezing Cardiovascular: chest pain. denies: palpitations Endocrine: no symptoms reported Gastrointestinal: denies: abdominal pain, nausea, diarrhea Genitourinary: denies: urgency, dysuria, discharge Musculoskeletal: denies: back pain, joint swelling, arthralgia Skin: denies: rash, lesions Neurological: denies: headache, weakness, paresthesias Psychiatric: denies: anxiety, depression Hematological/Lymphatic: denies: easy bleeding, easy bruising ED Past Medical Hx - Past Medical History Previous Medical History?: Yes Hx Hypertension: Yes Hx Congestive Heart Failure: Yes Hx Diabetes: Yes Hx Renal Disease: Yes (HD T,THUR,SAT) Hx Arthritis: Yes Hx Headaches / Migraines: Yes Hx Seizures: Yes Hx Asthma: Yes Hx COPD: Yes Hx HIV: No Additional medical history: Lupus - Surgical History Past Surgical History?: Yes Additional Surgical History: RIGHT ARM graft - Family History Family history: no significant - Social History Smoking Status: Former Smoker Substance Use Type: None - Medications Home Medications: Home Medications Medication Instructions Recorded Confirmed Last Taken Type Metoclopramide HCl [Reglan TAB] 5 mg PO TIDAC PRN #20 tablet 12/15/18 11/16/19 Unknown Rx Albuterol Sulfate [Proair 2 puff IH Q4H PRN #1 pump 02/17/19 11/16/19 Unknown Rx Respiclick] Sertraline [Zoloft] 25 mg PO QDAY tablet 02/17/19 11/16/19 Unknown Rx Clonidine HCl [Catapres] 0.3 mg PO TID #60 tablet 04/17/19 11/16/19 Unknown Rx Hydroxychloroquine [Plaquenil] 200 mg PO QDAY #30 tablet 04/17/19 11/16/19 Unknown Rx hydrALAZINE [Apresoline TAB] 100 mg PO TID #90 tab 04/17/19 11/16/19 Unknown Rx labetaloL [Labetalol 200mg TAB] 200 mg PO TID #60 tablet 04/17/19 11/16/19 Unknown Rx methOCARBAMOL [Robaxin TAB] 750 mg PO Q6HR PRN #60 tablet 05/30/19 11/16/19 Un known Rx Albuterol INH(or & Nicu Only) 2 puff IH QID PRN #8.5 gram 09/19/19 11/16/19 Unknown Rx [ProAir HFA Inhaler] Ondansetron [Zofran ODT TAB] 4 mg PO Q8HR PRN #20 tab.rapdis 09/27/19 11/16/19 Unknown Rx diphenhydrAMINE [Benadryl CAP] 25 mg PO Q6HR PRN #20 capsule 09/27/19 11/16/19 Unknown Rx Butalb/Acetamin/Caff 50-325-40 2 tab PO Q8HR PRN #14 tablet 09/30/19 11/16/19 Unknown Rx [Fioricet 50-325-40] Ibuprofen [Motrin 800 MG tab] 800 mg PO Q8HR PRN #20 tablet 09/30/19 11/16/19 Unknown Rx Phenytoin [Dilantin] 100 mg PO TID #90 capsule.er 09/30/19 11/16/19 Unknown Rx levETIRAcetam [Keppra TAB] 750 mg PO BID #60 tablet 09/30/19 11/16/19 Unknown Rx Ondansetron [Zofran ODT TAB] 4 mg PO Q8HR PRN #14 tab.rapdis 10/03/19 11/16/19 Unknown Rx HYDROcodone/APAP 5-325 [[place] 1 each PO Q6HR PRN #14 tablet 10/21/19 11/16/19 Unknown Rx 5-325 mg TAB] Prednisone [predniSONE 10 mg 10 mg PO .TAPER #1 tab.ds.pk 10/21/19 11/16/19 Unknown Rx (6-Day Pack, 21 Tabs)] ED Physical Exam - General Limitations: No Limitations General appearance: alert, in no apparent distress - Head Head exam: Present: atraumatic, normocephalic - Eye Eye exam: Present: normal appearance - ENT ENT exam: Present: mucous membranes moist - Neck Neck exam: Present: normal inspection - Respiratory Respiratory exam: Present: normal lung sounds bilaterally, chest wall tenderness. Absent: respiratory distress, wheezes - Cardiovascular Cardiovascular Exam: Present: regular rate, normal rhythm. Absent: systolic murmur, diastolic murmur, rubs, gallop - GI/Abdominal GI/Abdominal exam: Present: soft, normal bowel sounds - Extremities Exam Extremities exam: Present: normal inspection - Back Exam Back exam: Present: normal inspection - Neurological Exam Neurological exam: Present: alert, oriented X3 - Psychiatric Psychiatric exam: Present: normal affect, normal mood - Skin Skin exam: Present: warm, dry, intact, normal color. Absent: rash ED Course Vital Signs 11/25/19 11/26/19 11/26/19 20:27 02:53 03:01 Temperature 98.0 F Pulse Rate 113 H 85 85 Respiratory 14 22 24 Rate Blood Pressure 154/109 O2 Sat by Pulse 98 99 100 Oximetry 11/26/19 11/26/19 11/26/19 03:31 04:01 04:31 Temperature Pulse Rate 95 H 87 103 H Respiratory 22 33 H 16 Rate Blood Pressure 165/110 165/110 165/110 O2 Sat by Pulse 100 100 62 L Oximetry 11/26/19 11/26/19 05:01 05:31 Temperature Pulse Rate 91 H 91 H Respiratory 23 26 H Rate Blood Pressure 169/106 169/106 O2 Sat by Pulse 99 99 Oximetry - Reevaluation(s) Reevaluation #1: Patient states her pain is improving. 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 Patient resting better. 11/26/19 04:30 Reevaluation #2: Patient states that her pain is starting to return. Patient will be given 1 mg of Dilaudid. Patient states her chest pain is better but her generalized pain is coming back. 11/26/19 06:12 Reevaluation #3: I discussed all results with patient. I discussed plan of care with patient. Patient agrees with plan of care and admission. Patient to be admitted to the hospitalist service. 11/26/19 06:30 - Consultations Consultation #1: Hospitalist consulted for admission. Hospitalist to admit patient. Bridge orders placed. 11/26/19 06:13 YULIYA score - Yuliya Score Age > 65: (0) No Aspirin use within the Past 7 Days: (1) Yes 3 or more CAD Risk Factors: (0) No 2 or more Angina events in past 24 hrs: (0) No Known CAD with more than 50% Stenosis: (0) No Elevated Cardiac Markers: (0) No ST Deviation Greater than 0.5mm: (0) No YULIYA Score: 1 ED Medical Decision Making - Lab Data Result diagrams: 11/25/19 22:33 11/25/19 22:33 - EKG Data -: EKG Interpreted by Me EKG shows normal: sinus rhythm, axis, intervals, QRS complexes, ST-T waves Rate: normal - Radiology Data Radiology results: report reviewed CLINICAL DATA: Bilateral rib pain TECHNICAL DATA: 4 views were obtained. FINDINGS: Exam is compared to 11/16/2019 Soft tissues are well imaged. Bones are intact. No evidence of fracture. No obvious pneumothorax. Parenchymal changes left lower lobe with small bilateral pleural effusions. Heart size is enlarged. Stents present left brachial vessel IMPRESSION: No evidence of rib fractures - Medical Decision Making Patient is a 29-year-old female that presents emergency room with complaints of chest pain, shortness of breath, rib pain, lupus flareup, generalized body pain. Patient has a high heart score and will be admitted to the hospitalist service to rule out ACS. Patient's labs are unremarkable except for end-stage renal d isease findings and anemia. Patient's troponin is elevated most likely secondary to her end-stage renal disease and will require further testing to verify if the troponin elevation is secondary to cardiac or her end-stage renal disease. Patient's shortness of breath is most likely secondary to volume overload due to fact patient has effusions bilaterally on her chest x-ray. Patient's chest x-ray shows pulmonary edema. Patient's EKG is normal sinus rhythm with no acute findings or STEMI. - Differential Diagnosis cp, sob, ACS, lupus flare, GEN body pain, Critical Care Time: Yes Critical care time in (mins) excluding proc time.: 35 Critical care attestation.: If time is entered above; I have spent that time in minutes in the direct care of this critically ill patient, excluding procedure time. Critical Care Time: 35 minutes ED Disposition Clinical Impression: ESRD (end stage renal disease), SOB (shortness of breath) Anemia in CKD (chronic kidney disease) Qualifiers: Chronic kidney disease stage: on chronic dialysis Qualified Code(s): N18.6 - End stage renal disease Lupus (systemic lupus erythematosus) Qualifiers: Systemic lupus erythematosus type: unspecified Systemic lupus erythematosus organ involvement: unspecified Qualified Code(s): M32.9 - Systemic lupus erythematosus, unspecified Pulmonary edema Qualifiers: Chronicity: acute Qualified Code(s): J81.0 - Acute pulmonary edema Chest pain Qualifiers: Chest pain type: unspecified Qualified Code(s): R07.9 - Chest pain, unspecified CHF exacerbation Qualifiers: Heart failure type: unspecified Qualified Code(s): I50.9 - Heart failure, unspecified Disposition: 09 OP ADMIT IP TO THIS HOSP Is pt being admited?: Yes Does the pt Need Aspirin: No Condition: Critical Time of Disposition: 06:18
[2019-11-26] MEDS ORDERED: diphenhydrAMINE 50 MG/ML VIAL IV ONE (04:17)
[2019-11-26] MEDS ORDERED: diphenhydrAMINE 50 MG/ML VIAL ONE (04:17)
[2019-11-26 04:34] LABS: Basophils % (Manual) 0 % (0.0-1.8); Total Cells Counted 100
[2019-11-26 04:35] LABS: Hypochromasia 1+
[2019-11-26 04:36] LABS: Anisocytosis Few; Schistocytes Rare
[2019-11-26 04:37] LABS: Ovalocytes Few; Platelet Estimate Consistent w Auto
[2019-11-26] MEDS ORDERED: HYDROmorphone 1 MG/1 ML INJ IV ONE (06:13)
[2019-11-26 06:51] LABS: Chol/HDL Ratio 2.8 %
--- NOTE | 2019-11-26 08:12 | History and Physical Report ---
History of Present Illness Date of examination: 11/26/19 Date of admission: 11/26/19 06:07 Chief complaint: Gen body pains,chest pain History of present illness: 29-year-old female patient with h/oth lupus,ESRD on HD presents emergency room with complaints of chest pain, shortness of breath, generalized body pain, lupus flareup. Patient c/o generalised body pains including substernal chest pain that is a 9 out of 10. Patient states that her chest pain is better with rest and worse with exertion and movement. Patient feels like this is a lupus flareup. Also c/o shortness of breath. Patient has h/o ESRD on dialysis on Friday, and Friday. Claims compliance with HD. Has h/o congestive heart failure, asthma, COPD, diabetes, headache, migraines, hypertension, Patient denies recent travel. Patient denies recent international travel. Patient denies exposure to the novel coronavirus. Patient denies sick contacts. Patient denies fever and chills. Patient denies cough. Patient denies diarrhea. Patient denies coming in contact with anybody with symptoms of the novel coronavirus. Past History Past Medical History: dialysis, ESRD, heart failure, hypertension, seizures, other (lupus) Past Surgical History: Other (AV graft) Social history: lives with family. denies: smoking, alcohol abuse Family history: hypertension Medications and Allergies Allergies Allergy/AdvReac Type Severity Reaction Status Date / Time acetaminophen [From Percocet] Allergy Itching Verified 11/09/19 16:15 lisinopril Allergy Swelling Verified 11/09/19 16:15 metoprolol Allergy Unknown Verified 11/09/19 16:15 oxycodone [From Percocet] Allergy Itching Verified 11/09/19 16:15 oxycodone HCl [From Percocet] AdvReac Unknown Verified 11/09/19 16:15 Home Medications Medication Instructions Recorded Confirmed Last Taken Type Clonidine HCl [Catapres] 0.3 mg PO TID #60 tablet 11/27/19 Unknown Rx Epoetin Blair 10,000 Unit [Procrit] 10,000 unit IV ALYSSA PRN vial 11/27/19 Unknown Rx Hydroxychloroquine [Plaquenil] 200 mg PO QDAY #30 tablet 11/27/19 Unknown Rx NIFEdipine XL [Procardia Xl] 60 mg PO Q12HR #60 tablet 11/27/19 Unknown Rx Oxycodone HCl/Acetaminophen 1 each PO Q6HR PRN #24 tablet 11/27/19 Unknown Rx [Percocet 7.5/325 mg] diphenhydrAMINE [Benadryl CAP] 25 mg PO QHS PRN 30 Days #60 11/27/19 Unknown Rx capsule hydrALAZINE [Apresoline TAB] 100 mg PO TID #90 tab 11/27/19 Unknown Rx labetaloL [Labetalol 200mg TAB] 200 mg PO TID #90 tablet 11/27/19 Unknown Rx levETIRAcetam [Keppra TAB] 750 mg PO BID #60 tablet 11/27/19 Unknown Rx levETIRAcetam [Keppra] 750 mg PO BID #60 oral.liqd 11/27/19 Unknown Rx Review of Systems Constitutional: no weight loss, no weight gain Ears, nose, mouth and throat: no nasal congestion, no nasal discharge Cardiovascular: chest pain, shortness of breath Respiratory: cough, shortness of breath Gastrointestinal: no abdominal pain, no nausea, no vomiting Genitourinary Female: no dysuria, no urinary frequency Musculoskeletal: myalgias, arthritis Integumentary: no rash, no lesions Neurological: weakness, seizures Psychiatric: no anxiety, no disorientation, no depression Endocrine: no cold intolerance, no heat intolerance Hematologic/Lymphatic: no easy bruising, no easy bleeding Allergic/Immunologic: allergic rhinitis, no urticaria Exam - Constitutional Vitals: Temp Pulse Resp BP Pulse Ox 98.0 F 99 H 18 165/104 100 11/25/19 20:27 11/26/19 07:41 11/26/19 07:41 11/26/19 07:41 11/26/19 07:41 General appearance: Present: no acute distress - EENT Eyes: Present: PERRL, EOM intact - Neck Neck: Present: supple, normal ROM - Respiratory Respiratory effort: normal Respiratory: bilateral: diminished, negative: rales, rhonchi, wheezing - Cardiovascular Rhythm: regular Heart Sounds: Present: S1 & S2 - Extremities Extremities: no ischemia, No edema - Abdominal General gastrointestinal: Present: soft, non-tender, non-distended, normal bowel sounds - Integumentary Integumentary: Present: clear, warm - Musculoskeletal Musculoskeletal: strength equal bilaterally - Psychiatric Psychiatric: appropriate mood/affect, cooperative - Neurologic Neurologic: moves all extremities Results - Labs CBC & Chem 7: 11/25/19 22:33 11/25/19 22:33 Labs: Abnormal lab results 11/25/19 11/25/19 11/26/19 Range/Units 22:33 22:33 05:12 WBC 3.1 L (4.5-11.0) K/mm3 RBC 2.91 L (3.65-5.03) M/mm3 Hgb 8.7 L (10.1-14.3) gm/dl Hct 27.2 L (30.3-42.9) % RDW 16.3 H (13.2-15.2) % Seg Neuts % (Manual) 76.0 H (40.0-70.0) % Lymphocytes # (Manual) 0.6 L (1.2-5.4) K/mm3 Sodium 134 L (137-145) mmol/L Potassium 3.5 L (3.6-5.0) mmol/L Chloride 96.4 L (98-107) mmol/L Creatinine 4.2 H (0.7-1.2) mg/dL Glucose 112 H (65-100) mg/dL ALT < 5 L (7-56) units/L Troponin T 0.155 H* (0.00-0.029) ng/mL Total Protein 8.4 H (6.3-8.2) g/dL Albumin 3.0 L (3.9-5) g/dL HDL Cholesterol 36 L (40-59) mg/dL Assessment and Plan --Atypical Chest pain: Pain meds ,patient was evaluated by cardiology in the past,negative stress test 02/2019 negative cath 02/2018,normal EF 53% --NSTEMI 2 : Chronic elevation troponin. Due to ESRD, cardiac work up in 2017,2018 negative --Malignant hypertension: Resume all home antihypertensives and PRN meds --ESRD : on HD HD per schedule. Nephrology consult --Hyponatremia: Fluid overload HD,Monitor electrolytes --Hypokalemia: Replenish with Kcl Monitor electrolytes --SLE : Continue current home meds supportive care --H/o seizures: Seizure precautions, cont antiepileptic medications --Anemia of ESRD: Monitor H/H ,procrit prn during HD transfuse as needed --Moderate malnutrition: Neutritional suppliments and supportive care --DVT prophylaxis: SCDs and lovenox Monitor closely and adjust the management as needed. Possible discharge in 1-2 days. Plan of care reviewed with the patient and her nurse
[2019-11-26] MEDS: levETIRAcetam 500 MG/5 ML ORAL LIQD PO SCH ×2 (09:48→21:59)
[2019-11-26] MEDS: HYDROXYCHLOROQUINE 200 MG TAB PO SCH (09:49)
[2019-11-26] MEDS: cloNIDine 0.1 MG TAB PO SCH ×3 (09:49→20:34)
[2019-11-26] MEDS ORDERED: NON-FORMULARY EACH (Levetiracetam [Keppra Tab] 750 MG) PO SCH (10:00)
--- NOTE | 2019-11-26 11:08 | Consultation ---
History of Present Illness - Reason for Consult Consult date: 11/26/19 end stage renal disease, accelerated hypertension Requesting physician: BEN ALFRED - History of Present Illness Patient is a 29-year-old female that presents emergency room with complaints of chest pain, shortness of breath, generalized body pain, lupus flareup. Patient states she is having bilateral lower rib pain at a 10 out of 10. Patient states that she is also having substernal chest pain that is a 9 out of 10. Patient states her generalized body pain is a 6 out of 10. Patient states that her pain in her ribs and generalized body pain is better with rest and worse with palpation and movement. Patient states that her chest pain is better with rest and worse with exertion and movement. Patient states she feels like this is a lupus flareup. Patient states she is also having shortness of breath. Patient states her shortness of breath is better with rest and worse with movement. Patient states her symptoms started 5 hours ago and are worsening. Patient states that she is on dialysis and she had dialysis today. Patient states she does dialysis on Friday, and Friday. Patient states she has a past medical history of congestive heart failure, asthma, COPD, diabetes, headache, migraines, hypertension, end-stage renal disease on dialysis. Patient states her graft is in her right arm. . Patient denies recent travel. Patient denies recent international travel. Patient denies exposure to the novel coronavirus. Patient denies sick contacts. Patient denies fever and chills. Patient denies cough. Patient denies diarrhea. Patient denies coming in contact with anybody with symptoms of the novel coronavirus. ROS: Stated complaint: LUPUS FLAIR RIB PAIN LEG AND BACK PAIN Other details as noted in HPI Constitutional: denies: chills, fever Eyes: denies: eye pain, eye discharge, vision change ENT: denies: ear pain, throat pain Respiratory: shortness of breath. denies: cough, wheezing Cardiovascular: chest pain. denies: palpitations Endocrine: no symptoms reported Gastrointestinal: denies: abdominal pain, nausea, diarrhea Genitourinary: denies: urgency, dysuria, discharge Musculoskeletal: denies: back pain, joint swelling, arthralgia Skin: denies: rash, lesions Neurological: denies: headache, weakness, paresthesias Psychiatric: denies: anxiety, depression Hematological/Lymphatic: denies: easy bleeding, easy bruising - Past Medical History Previous Medical History?: Yes Hx Hypertension: Yes Hx Congestive Heart Failure: Yes Hx Diabetes: Yes Hx Renal Disease: Yes (HD T,THUR,SAT) Hx Arthritis: Yes Hx Headaches / Migraines: Yes Hx Seizures: Yes Hx Asthma: Yes Hx COPD: Yes Hx HIV: No Additional medical history: Lupus - Surgical History Past Surgical History?: Yes Additional Surgical History: RIGHT ARM graft - Family History Family history: no significant - Social History Smoking Status: Former Smoker Substance Use Type: None Medications and Allergies Allergies Allergy/AdvReac Type Severity Reaction Status Date / Time acetaminophen [From Percocet] Allergy Itching Verified 11/09/19 16:15 lisinopril Allergy Swelling Verified 11/09/19 16:15 metoprolol Allergy Unknown Verified 11/09/19 16:15 oxycodone [From Percocet] Allergy Itching Verified 11/09/19 16:15 oxycodone HCl [From Percocet] AdvReac Unknown Verified 11/09/19 16:15 Home Medications Medication Instructions Recorded Confirmed Last Taken Type Clonidine HCl [Catapres] 0.3 mg PO TID #60 tablet 04/17/19 11/26/19 1 Day Ago Rx ~11/25/19 Hydroxychloroquine [Plaquenil] 200 mg PO QDAY #30 tablet 04/17/19 11/26/19 1 Day Ago Rx ~11/25/19 hydrALAZINE [Apresoline TAB] 100 mg PO TID #90 tab 04/17/19 11/26/19 1 Day Ago Rx ~11/25/19 labetaloL [Labetalol 200mg TAB] 200 mg PO TID #60 tablet 04/17/19 11/26/19 1 Day Ago Rx ~11/25/19 Phenytoin [Dilantin] 100 mg PO TID #90 capsule.er 09/30/19 11/26/19 1 Day Ago Rx ~11/25/19 levETIRAcetam [Keppra TAB] 750 mg PO BID #60 tablet 09/30/19 11/26/19 1 Day Ago Rx ~11/25/19 Active Meds: Active Medications Clonidine HCl (Catapres) 0.3 mg PO TID FERNANDO Last Admin: 11/26/19 09:49 Dose: 0.3 mg Documented by: Hydralazine HCl (Apresoline) 100 mg PO TID [facility] Hydroxychloroquine Sulfate (Plaquenil) 200 mg PO QDAY [facility] Last Admin: 11/26/19 09:49 Dose: 200 mg Documented by: Levetiracetam (Keppra) 750 mg PO BID [facility] Last Admin: 11/26/19 09:48 Dose: 750 mg Documented by: Morphine Sulfate (Morphine) 1 mg IV Q6H PRN PRN Reason: Pain, Moderate (4-6) Phenytoin (Dilantin) 100 mg PO TID [facility] Exam - Vital Signs Vital signs: Vital Signs Temp Pulse Resp BP Pulse Ox 98.0 F 113 H 14 154/109 98 11/25/19 20:27 11/25/19 20:27 11/25/19 20:27 11/25/19 20:27 11/25/19 20:27 - Physical Exam Narrative exam: General appearance: Present: mild distress - EENT Eyes: Present: PERRL ENT: hearing intact, clear oral mucosa - Neck Neck: Present: supple, normal ROM - Respiratory Respiratory effort: normal Respiratory: bilateral: CTA - Cardiovascular Heart Sounds: Present: S1 & S2. Absent: rub, click - Extremities Extremities: pulses symmetrical, No edema Peripheral Pulses: within normal limits - Abdominal General gastrointestinal: Present: soft, non-tender, non-distended, normal bowel sounds Female genitourinary: Present: normal - Integumentary Integumentary: Present: clear, warm, dry - Musculoskeletal Musculoskeletal: gait normal, strength equal bilaterally - Psychiatric Psychiatric: appropriate mood/affect, intact judgment & insight - Neurologic Neurologic: CNII-XII intact, moves all extremities Results - Lab Results 11/25/19 22:33 11/25/19 22:33 Most recent lab results Calcium 8.9 mg/dL (8.4-10.2) 11/25/19 22:33 Assessment and Plan Impression: * End stage renal disease * seizure disorder * chest pain * Accelerated hypertension * SLE * Seizure disorder * Anemia secondary to ESRD * Secondary hyperparathryoidism Plan: * Hemodialysis TTHSAT, and prn * chest pain workup per primary team * UF as tolerated * Pain management per primary team * Continue antiHTN medications * Renal diet * Epogen TIW prn
[2019-11-26] MEDS ORDERED: SODIUM CHLORIDE 0.9% 100 ML IV PRN (11:12)
[2019-11-26] MEDS ORDERED: EPOETIN ALFA 10,000 UNIT/1 ML INJ IV PRN (11:12)
[2019-11-26] MEDS ORDERED: ALBUMIN HUMAN 25% (25 GM/100 ML) INJ IV PRN (11:12)
[2019-11-26] MEDS: NIFEdipine XL 60 MG TAB PO SCH ×2 (11:49→21:59)
[2019-11-26] MEDS: MORPHINE 2 MG/1 ML INJ IV PRN ×2 (13:16→20:35)
[2019-11-26] MEDS ORDERED: NON-FORMULARY EACH (Clonidine Hcl [Catapres] 0.3 MG) PO SCH (14:00)
[2019-11-26] MEDS: PHENYTOIN 100 MG CAPSULE.ER PO SCH ×2 (14:10→20:34)
[2019-11-26] MEDS: hydrALAZINE 100 MG TAB PO SCH ×2 (14:55→20:34)
[2019-11-26] MEDS: diphenhydrAMINE 25 MG CAP PO PRN ×2 (15:55→21:59)
[2019-11-27] MEDS: MORPHINE 2 MG/1 ML INJ IV PRN ×3 (03:25→16:17)
[2019-11-27] MEDS: PHENYTOIN 100 MG CAPSULE.ER PO SCH ×2 (08:33→14:52)
[2019-11-27] MEDS: cloNIDine 0.1 MG TAB PO SCH ×2 (08:33→14:53)
[2019-11-27] MEDS: hydrALAZINE 100 MG TAB PO SCH ×2 (08:33→14:52)
[2019-11-27] MEDS: HYDROXYCHLOROQUINE 200 MG TAB PO SCH (09:44)
[2019-11-27] MEDS: levETIRAcetam 500 MG/5 ML ORAL LIQD PO SCH (09:44)
[2019-11-27] MEDS: NIFEdipine XL 60 MG TAB PO SCH (09:45)
[2019-11-27] MEDS ORDERED: SODIUM CHLORIDE*PRIMING MACHINE ONLY FOR DIALYSIS MC ONE (11:33)
--- NOTE | 2019-11-27 11:36 | Progress Note ---
Assessment and Plan Impression: * End stage renal disease * seizure disorder * chest pain * Accelerated hypertension * SLE * Seizure disorder * Anemia secondary to ESRD * Secondary hyperparathryoidism Plan: * Hemodialysis TTHSAT, and prn * chest pain workup per primary team * UF as tolerated * Pain management per primary team * Continue antiHTN medications * Renal diet * Epogen TIW prn * ok to dc after hd Subjective Date of service: 11/27/19 Principal diagnosis: esrd Interval history: resting in bed today Objective - Exam Narrative Exam: General appearance: Present: mild distress - EENT Eyes: Present: PERRL ENT: hearing intact, clear oral mucosa - Neck Neck: Present: supple, normal ROM - Respiratory Respiratory effort: normal Respiratory: bilateral: CTA - Cardiovascular Heart Sounds: Present: S1 & S2. Absent: rub, click - Extremities Extremities: pulses symmetrical, No edema Peripheral Pulses: within normal limits - Abdominal General gastrointestinal: Present: soft, non-tender, non-distended, normal bowel sounds Female genitourinary: Present: normal - Integumentary Integumentary: Present: clear, warm, dry - Musculoskeletal Musculoskeletal: gait normal, strength equal bilaterally - Psychiatric Psychiatric: appropriate mood/affect, intact judgment & insight - Neurologic Neurologic: CNII-XII intact, moves all extremities - Vital Signs Vital signs: Vital Signs - 12hr 11/27/19 11/27/19 11/27/19 03:53 08:26 08:33 Temperature 98.5 F 98.6 F Pulse Rate 85 89 89 Respiratory 18 18 Rate Blood Pressure 145/98 127/84 127/84 O2 Sat by Pulse 100 100 Oximetry 11/27/19 11/27/19 11/27/19 10:20 10:30 10:45 Temperature 97.9 F Pulse Rate 85 87 88 Respiratory 18 Rate Blood Pressure 115/79 125/80 123/80 O2 Sat by Pulse Oximetry 11/27/19 11/27/19 11:00 11:15 Temperature Pulse Rate 86 88 Respiratory Rate Blood Pressure 128/71 122/72 O2 Sat by Pulse Oximetry - Lab 11/25/19 22:33 11/25/19 22:33 Most recent lab results Calcium 8.9 mg/dL (8.4-10.2) 11/25/19 22:33 Medications & Allergies - Medications Allergies/Adverse Reactions: Allergies acetaminophen [From Percocet] Allergy (Verified 11/09/19 16:15) Itching lisinopril Allergy (Verified 11/09/19 16:15) Swelling metoprolol Allergy (Verified 11/09/19 16:15) Unknown oxycodone [From Percocet] Allergy (Verified 11/09/19 16:15) Itching oxycodone HCl [From Percocet] Adverse Reaction (Verified 11/09/19 16:15) Unknown Home Medications: Home Medications Medication Instructions Recorded Confirmed Last Taken Type Clonidine HCl [Catapres] 0.3 mg PO TID #60 tablet 04/17/19 11/26/19 1 Day Ago Rx ~11/25/19 Hydroxychloroquine [Plaquenil] 200 mg PO QDAY #30 tablet 04/17/19 11/26/19 1 Day Ago Rx ~11/25/19 hydrALAZINE [Apresoline TAB] 100 mg PO TID #90 tab 04/17/19 11/26/19 1 Day Ago Rx ~11/25/19 labetaloL [Labetalol 200mg TAB] 200 mg PO TID #60 tablet 04/17/19 11/26/19 1 Day Ago Rx ~11/25/19 Phenytoin [Dilantin] 100 mg PO TID #90 capsule.er 09/30/19 11/26/19 1 Day Ago Rx ~11/25/19 levETIRAcetam [Keppra TAB] 750 mg PO BID #60 tablet 09/30/19 11/26/19 1 Day Ago Rx ~11/25/19 Active Medications: Generic Name Dose Route Start Last Admin Trade Name Freq PRN Reason Stop Dose Admin Albumin Human 25 gm 11/26/19 11:12 Alburx 25% (Albumin) IV ALYSSA PRN Hypotension Clonidine HCl 0.3 mg 11/26/19 09:00 11/27/19 08:33 Catapres PO 0.3 mg TID FERNANDO Administration Diphenhydramine HCl 25 mg 11/26/19 15:06 11/26/19 21:59 Benadryl PO 25 mg Q6H PRN Administration Itching Epoetin Blair 10,000 unit 11/26/19 11:12 Procrit IV ALYSSA PRN hemodialysis Hydralazine HCl 100 mg 11/26/19 14:00 11/27/19 08:33 Apresoline PO 100 mg TID FERNANDO Administration Hydroxychloroquine Sulfate 200 mg 11/26/19 10:00 11/27/19 09:44 Plaquenil PO 200 mg QDAY FERNANDO Administration Sodium Chloride 100 mls @ 999 mls/hr 11/26/19 11:12 Nacl 0.9% IV ALYSSA PRN Hypotension Levetiracetam 750 mg 11/26/19 10:00 11/27/19 09:44 Keppra PO 750 mg BID FERNANDO Administration Morphine Sulfate 1 mg 11/26/19 11:00 11/27/19 09:59 Morphine IV 1 mg Q6H PRN Administration Pain, Moderate (4-6) Nifedipine 60 mg 11/26/19 12:00 11/27/19 09:45 Procardia Xl PO Not Given Q12HR [facility] Phenytoin 100 mg 11/26/19 14:00 11/27/19 08:33 Dilantin PO 100 mg TID FERNANDO Administration
--- NOTE | 2019-11-27 16:23 | Discharge Summary ---
Providers - Providers Date of Admission: 11/26/19 06:07 Date of discharge: 11/27/19 Attending physician: RADHA OCASIO 11/26/19 08:15 Consult to Physician [CONS] Routine Comment: Consulting Provider: SREEDHAR MENJIVAR Physician Instructions: Reason For Exam: ESRD /HD Primary care physician: ODIN LYMAN MD Hospitalization Condition: Critical Disposition: DC-01 TO HOME OR SELFCARE Exam - Constitutional Vitals: Temp Pulse Resp BP Pulse Ox 98.3 F 88 20 118/75 100 11/27/19 13:45 11/27/19 14:53 11/27/19 16:17 11/27/19 14:53 11/27/19 12:00 Plan Follow up with: PRIMARY CARE, [Primary Care Provider] - 7 Days
[2019-11-27 16:24] VITALS: BP 146/95
[2019-11-27] MEDS: diphenhydrAMINE 25 MG CAP PO PRN (16:27)
== END 2019-11-27 20:40 | disposition home or self-care (01) ==
LOC: ED 20:23 → 4A 11-26 06:07
PROVIDERS: ADMIT Internal Medicine Geriatric Medicine; ATTEND Internal Medicine
DX: I21.A1 Myocardial infarction type 2 (principal); I13.2 Hypertensive heart and chronic kidney disease with heart failure and with stage 5 chronic kidney disease, or end stage renal disease; N18.6 End stage renal disease; I50.9 Heart failure, unspecified; D63.1 Anemia in chronic kidney disease; E78.5 Hyperlipidemia, unspecified; E87.6 Hypokalemia; E87.1 Hypo-osmolality and hyponatremia; E44.0 Moderate protein-calorie malnutrition; M32.9 Systemic lupus erythematosus, unspecified; J44.9 Chronic obstructive pulmonary disease, unspecified; G43.909 Migraine, unspecified, not intractable, without status migrainosus; N25.81 Secondary hyperparathyroidism of renal origin; Z86.69 Personal history of other diseases of the nervous system and sense organs; Z99.2 Dependence on renal dialysis; Z79.899 Other long term (current) drug therapy; Z88.5 Allergy status to narcotic agent; Z88.8 Allergy status to other drugs, medicaments and biological substances
CPT/HCPCS: 36415; 71111; 80053; 80061; 84484; 85007; 85025; 93005; 93010; 94760; 96374; 96375; 96376; 99291; G0257; G0378; J0885; J1170; J1200; J2270; J2930; J7030

== ENCOUNTER 2019-12-25 08:34 | Emergency (ER) | payer MEDICARE ==
[2019-12-25] MEDS ORDERED: IBUPROFEN 600 MG TAB PO ONE ×2 (09:04→09:07)
[2019-12-25] MEDS ORDERED: ONDANSETRON 4 MG/2 ML INJ IM ONE (12:09)
[2019-12-25] MEDS ORDERED: fentaNYL 100 MCG/2 ML INJ IM ONE ×2 (12:09→15:42)
--- NOTE | 2019-12-25 12:14 | Emergency Department Report ---
HPI - General Chief Complaint: Fall Time Seen by Provider: 12/25/19 12:01 - HPI HPI: Room 19 The patient is a 29-year-old female present with a chief complaint of pain after fall. The patient states she had a seizure yesterday causing her to fall off of her bed. The patient states this morning she awakened with pain in her left shoulder low back and bilateral ribs. Patient gives her pain a score of 10/10. Patient states she has been compliant with her Keppra ED Past Medical Hx - Past Medical History Previous Medical History?: Yes Hx Hypertension: Yes Hx Congestive Heart Failure: Yes Hx Diabetes: Yes Hx Renal Disease: Yes (HD T,THUR,SAT) Hx Arthritis: Yes Hx Headaches / Migraines: Yes Hx Seizures: Yes Hx Asthma: Yes Hx COPD: Yes Additional medical history: Lupus - Surgical History Past Surgical History?: Yes Additional Surgical History: RIGHT ARM graft - Family History Family history: no significant - Social History Smoking Status: Never Smoker Substance Use Type: None - Medications Home Medications: Home Medications Medication Instructions Recorded Confirmed Last Taken Type Clonidine HCl [Catapres] 0.3 mg PO TID #60 tablet 11/27/19 Unknown Rx Epoetin Blair 10,000 Unit [Procrit] 10,000 unit IV ALYSSA PRN vial 11/27/19 Unknown Rx Hydroxychloroquine [Plaquenil] 200 mg PO QDAY #30 tablet 11/27/19 Unknown Rx NIFEdipine XL [Procardia Xl] 60 mg PO Q12HR #60 tablet 11/27/19 Unknown Rx Oxycodone HCl/Acetaminophen 1 each PO Q6HR PRN #24 tablet 11/27/19 Unknown Rx [Percocet 7.5/325 mg] diphenhydrAMINE [Benadryl CAP] 25 mg PO QHS PRN 30 Days #60 11/27/19 Unknown Rx capsule hydrALAZINE [Apresoline TAB] 100 mg PO TID #90 tab 11/27/19 Unknown Rx labetaloL [Labetalol 200mg TAB] 200 mg PO TID #90 tablet 11/27/19 Unknown Rx levETIRAcetam [Keppra TAB] 750 mg PO BID #60 tablet 11/27/19 Unknown Rx levETIRAcetam [Keppra] 750 mg PO BID #60 oral.liqd 11/27/19 Unknown Rx Cyclobenzaprine [Flexeril] 10 mg PO TID PRN #10 tablet 12/25/19 Unknown Rx HYDROcodone/APAP 5-325 [[place] 1 each PO Q6HR PRN #10 tablet 12/25/19 Unknown Rx 5/325] Ibuprofen [Motrin 800 MG tab] 800 mg PO Q8HR PRN #20 tablet 12/25/19 Unknown Rx ED Review of Systems ROS: Stated complaint: LOW BACK PAIN Other details as noted in HPI Constitutional: no symptoms reported Respiratory: no symptoms reported Endocrine: no symptoms reported Musculoskeletal: myalgia Physical Exam - Physical Exam Vital Signs: Vital Signs 12/25/19 12/25/19 08:58 09:25 Temperature 100.1 F H Pulse Rate 71 Respiratory 22 18 Rate Blood Pressure 164/112 O2 Sat by Pulse 99 Oximetry Physical Exam: GENERAL: The patient is well-developed well-nourished female lying on stretcher not appearing to be in acute distress. [] HEENT: Normocephalic. Atraumatic. Extraocular motions are intact. Patient has moist mucous membranes. NECK: Supple. Trachea midline CHEST/LUNGS: Clear to auscultation. There is no respiratory distress noted. HEART/CARDIOVASCULAR: Regular. There is no tachycardia. There is no gallop rub or murmur. ABDOMEN: Abdomen is soft, nontender. Patient has normal bowel sounds. There is no abdominal distention. SKIN: There is no rash. There is no edema. There is no diaphoresis. NEURO: The patient is awake, alert, and oriented. The patient is cooperative. The patient has normal speech MUSCULOSKELETAL: There is tenderness to palpation of the lumbar spine and anterior left shoulder. Patient complains of pain in the left breast and along the right ribs ED Course Vital Signs 12/25/19 12/25/19 08:58 09:25 Temperature 100.1 F H Pulse Rate 71 Respiratory 22 18 Rate Blood Pressure 164/112 O2 Sat by Pulse 99 Oximetry ED Medical Decision Making - Lab Data Result diagrams: 12/25/19 13:11 12/25/19 13:11 Laboratory Tests 12/25/19 12/25/19 12/25/19 13:11 13:11 13:11 WBC 6.3 RBC 3.25 L Hgb 9.7 L Hct 29.7 L MCV 91 MCH 30 MCHC 33 RDW 17.1 H Plt Count 263 Baso % (Auto) Information Technology Teacher Sodium 130 L Potassium 4.6 Chloride 96.8 L Carbon Dioxide 18 L Anion Gap 20 BUN 45 H Creatinine 8.0 H Estimated GFR 7 BUN/Creatinine Ratio 6 Glucose 105 H Calcium 8.7 Magnesium 2.20 HCG, Qual Negative - Radiology Data Radiology results: image reviewed (Lumbar spine x-ray, chest x-ray with bilateral rib series x-ray, left shoulder x-ray, right tib-fib x-ray, left forearm x-ray) interpreted by me: Lumbar spine x-ray-no acute fracture seen Findings [address] [address] XRay Report Signed Patient: SANDRA DICKEY MR#: [id number] : 1990 Acct:[id number] Age/Sex: 29 / F ADM Date: 12/25/19 Loc: ED Attending Dr: Ordering Physician: ISIAH URBANO MD Date of Service: 12/25/19 Procedure(s): XR ribs BILAT w/PA chest 4+V Accession Number(s): [id number] cc: ISIAH URBANO MD Fluoro Time In Minutes: BILATERAL RIBS PLUS CHEST 4 VIEWS INDICATION / CLINICAL INFORMATION: Bilateral rib pain after fall. COMPARISON: None available. FINDINGS: BONES and JOINT(S): No acute fracture or subluxation. No significant arthritis. SOFT TISSUES/CHEST: No significant abnormality. ADDITIONAL FINDINGS: None. IMPRESSION: 1. No acute findings. Signer Name: Matthew Hernandez MD Signed: 12/25/2019 3:28 PM Workstation Name: [id number] Transcribed By: MN Dictated By: Matthew Hernandez MD Electronically Aut henticated By: Matthew Hernandez MD Signed Date/Time: 12/25/19 1528 DD/ 1526 TD/TT: Findings [address] [address] XRay Report Signed Patient: SANDRA DICKEY MR#: [id number] : 1990 Acct:[id number] Age/Sex: 29 / F ADM Date: 12/25/19 Loc: ED Attending Dr: Ordering Physician: ISIAH URBANO MD Date of Service: 12/25/19 Procedure(s): XR tibia fibula 2V RT Accession Number(s): [id number] cc: ISIAH URBANO MD Fluoro Time In Minutes: RIGHT TIBIA/FIBULA 4 VIEWS INDICATION / CLINICAL INFORMATION: Right leg pain after fall from standing position. COMPARISON: None available. FINDINGS: BONES and JOINT(S): No acute fracture or subluxation. No significant arthritis. SOFT TISSUES: No significant abnormality. ADDITIONAL FINDINGS: None. IMPRESSION: 1. No acute findings. Signer Name: Matthew Hernandez MD Signed: 12/25/2019 3:30 PM Workstation Name: [id number] Transcribed By: SAÚL Dictated By: Matthew Hernandez MD Electronically Authenticated By: Matthew Hernandez MD Signed Date/Time: 12/25/19 153 DD/ 29 TD/TT: Findings [facility] [address] [place] [address] XRay Report Signed Patient: SANDRA DICKEY MR#: [id number] : 1990 Acct:[id number] Age/Sex: 29 / F ADM Date: 12/25/19 Loc: ED Attending Dr: Ordering Physician: ISIAH URBANO MD Date of Service: 12/25/19 Procedure(s): XR spine lumbosacral 2-3V Accession Number(s): [id number] cc: ISIAH URBANO MD Fluoro Time In Minutes: LUMBAR SPINE 3 VIEWS INDICATION: Low back pain after fall from standing position. COMPARISON: No relevant prior imaging study available. FINDINGS: VERTEBRAE: No acute fracture. Normal alignment. DISC SPACES: No significant abnormality. FACET JOINTS: No significant abnormality. SOFT TISSUES: No significant abnormality. ADDITIONAL FINDINGS: No additional significant findings. IMPRESSION: 1. No acute findings. Signer Name: Matthew Hernandez MD Signed: 12/25/2019 3:30 PM Workstation Name: [id number] Transcribed By: MN Dictated By: Matthew Hernandez MD Electronically Authenticated By: Matthew Hernandez MD Signed Date/Time: 12/25/191529 DD/ 152 TD/TT: Left forearm x-ray -no acute findings Left shoulder x-ray -no acute findings - Differential Diagnosis Left shoulder contusion, shoulder fracture, rib contusion, pneumothorax, alan Critical care attestation.: If time is entered above; I have spent that time in minutes in the direct care of this critically ill patient, excluding procedure time. ED Disposition Clinical Impression: Rib contusion, Contusion of left shoulder, Lumbar strain Disposition: TO HOME OR SELFCARE Is pt being admited?: No Does the pt Need Aspirin: No Condition: Stable Instructions: Muscle Strain (ED) Additional Instructions: Return to the emergency department should you develop worsening symptoms, inability to tolerate food or liquids, high fever or any other concerns Prescriptions: Cyclobenzaprine [Flexeril] 10 mg PO TID PRN #10 tablet PRN Reason: Muscle Spasm Ibuprofen [Motrin 800 MG tab] 800 mg PO Q8HR PRN #20 tablet PRN Reason: Pain, Moderate (4-6) HYDROcodone/APAP 5-325 [[place] 5/325] 1 each PO Q6HR PRN #10 tablet PRN Reason: Pain Referrals: PRIMARY CAREMD [Primary Care Provider] - 3-5 Days TONY TINOCO MD [Staff Physician] - 3-5 Days (Dr. Tinoco is an orthopedic surgeon. Please follow-up with him for further evaluation) Time of Disposition: 15:42
[2019-12-25 12:33] VITALS: BP 151/110
[2019-12-25 13:49] LABS: Hematocrit 29.7 % (30.3-42.9); Hemoglobin 9.7 gm/dl (10.1-14.3); Mean Corpuscular HGB Conc 33 % (30-34); Mean Corpuscular Volume 91 fl (79-97); Red Blood Count 3.25 M/mm3 (3.65-5.03); Red Cell Distribution Width 17.1 % (13.2-15.2)
[2019-12-25 13:59] LABS: Calcium 8.7 mg/dL (8.4-10.2)
[2019-12-25 14:00] LABS: Platelet Count 263 K/mm3 (140-440)
[2019-12-25 14:46] LABS: Anisocytosis Few; Basophils % (Manual) 0 % (0.0-1.8); Total Cells Counted 100
[2019-12-25 14:47] LABS: Poikilocytosis Few
--- NOTE | 2019-12-25 15:33 | XRay Report ---
BILATERAL RIBS PLUS CHEST 4 VIEWS INDICATION / CLINICAL INFORMATION: Bilateral rib pain after fall. COMPARISON: None available. FINDINGS: BONES and JOINT(S): No acute fracture or subluxation. No significant arthritis. SOFT TISSUES/CHEST: No significant abnormality. ADDITIONAL FINDINGS: None. IMPRESSION: 1. No acute findings. Signer Name: Matthew Hernandez MD Signed: 12/25/2019 3:28 PM Workstation Name: [id number]
--- NOTE | 2019-12-25 15:34 | XRay Report ---
LEFT FOREARM ONE VIEW INDICATION / CLINICAL INFORMATION: Left forearm pain and swelling after fall from standing position. COMPARISON: None available. FINDINGS: The study is limited by lack of a lateral view. BONES and JOINT(S): No acute fracture or subluxation. No significant arthritis. SOFT TISSUES: No significant abnormality. ADDITIONAL FINDINGS: Surgical clips are seen medially along the left elbow. There is generalized athe rosclerosis. IMPRESSION: 1. No acute findings. Signer Name: Matthew Hernandez MD Signed: 12/25/2019 3:29 PM Workstation Name: [id number]
--- NOTE | 2019-12-25 15:34 | XRay Report ---
LUMBAR SPINE 3 VIEWS INDICATION: Low back pain after fall from standing position. COMPARISON: No relevant prior imaging study available. FINDINGS: VERTEBRAE: No acute fracture. Normal alignment. DISC SPACES: No significant abnormality. FACET JOINTS: No significant abnormality. SOFT TISSUES: No significant abnormality. ADDITIONAL FINDINGS: No additional significant findings. IMPRESSION: 1. No acute findings. Signer Name: Matthew Hernandez MD Signed: 12/25/2019 3:30 PM Workstation Name: [id number]
--- NOTE | 2019-12-25 15:35 | XRay Report ---
RIGHT TIBIA/FIBULA 4 VIEWS INDICATION / CLINICAL INFORMATION: Right leg pain after fall from standing position. COMPARISON: None available. FINDINGS: BONES and JOINT(S): No acute fracture or subluxation. No significant arthritis. SOFT TISSUES: No significant abnormality. ADDITIONAL FINDINGS: None. IMPRESSION: 1. No acute findings. Signer Name: Matthew Hernandez MD Signed: 12/25/2019 3:30 PM Workstation Name: [id number]
--- NOTE | 2019-12-25 15:36 | XRay Report ---
LEFT SHOULDER 3 VIEWS INDICATION / CLINICAL INFORMATION: Left shoulder pain after fall. COMPARISON: Left shoulder series from 09/30/2019. FINDINGS: BONES and JOINT(S): No acute fracture or subluxation. No significant arthritis. SOFT TISSUES: No significant abnormality. ADDITIONAL FINDINGS: A stent and surgical clips are seen along the left axilla. IMPRESSION: 1. No acute findings. Signer Name: Matthew Hernandez MD Signed: 12/25/2019 3:31 PM Workstation Name: [id number]
== END 2019-12-25 19:00 | disposition home or self-care (01) ==
LOC: ED 08:34
DX: S39.012A Strain of muscle, fascia and tendon of lower back, initial encounter (principal); S40.012A Contusion of left shoulder, initial encounter; S20.212A Contusion of left front wall of thorax, initial encounter; E11.9 Type 2 diabetes mellitus without complications; M19.91 Primary osteoarthritis, unspecified site; I11.0 Hypertensive heart disease with heart failure; I50.9 Heart failure, unspecified; R56.9 Unspecified convulsions; J44.9 Chronic obstructive pulmonary disease, unspecified; Z87.448 Personal history of other diseases of urinary system; Z98.890 Other specified postprocedural states; Z79.1 Long term (current) use of non-steroidal anti-inflammatories (NSAID); Z79.899 Other long term (current) drug therapy; Z88.8 Allergy status to other drugs, medicaments and biological substances; W06.XXXA Fall from bed, initial encounter; Y93.89 Activity, other specified; Y92.89 Other specified places as the place of occurrence of the external cause; Y99.8 Other external cause status
CPT/HCPCS: 36415; 71111; 72100; 73030; 73090; 73590; 80048; 83735; 84703; 85007; 85025; 96372; 99284; J2405; J3010

== ENCOUNTER 2020-01-13 05:07 | Emergency (ER) | payer MEDICARE ==
[2020-01-13 06:15] LABS: Basophils % (Auto) 0.5 % (0.0-1.8); Eosinophils # (Auto) 0.1 K/mm3 (0.0-0.4); Eosinophils % (Auto) 3.1 % (0.0-4.3); Hematocrit 32.2 % (30.3-42.9); Hemoglobin 10.1 gm/dl (10.1-14.3); Lymphocytes # (Auto) 0.7 K/mm3 (1.2-5.4); Lymphocytes % (Auto) 16.9 % (13.4-35.0); Mean Corpuscular HGB Conc 31 % (30-34); Mean Corpuscular Volume 90 fl (79-97); Monocytes # (Auto) 0.4 K/mm3 (0.0-0.8); Monocytes % (Auto) 8.9 % (0.0-7.3); Platelet Count 286 K/mm3 (140-440); Red Blood Count 3.59 M/mm3 (3.65-5.03); Red Cell Distribution Width 17.5 % (13.2-15.2)
[2020-01-13 06:18] LABS: Alanine Aminotransferase < 5 units/L (7-56); Albumin 2.9 g/dL (3.9-5); BUN/Creatinine Ratio 2; Blood Urea Nitrogen 15 mg/dL (7-17); Hemolysis Index 2
[2020-01-13] MEDS ORDERED: HYDROmorphone 1 MG/1 ML INJ IV ONE ×2 (06:30→08:30)
[2020-01-13] MEDS ORDERED: FAMOTIDINE 20 MG/2 ML INJ IV ONE (06:30)
[2020-01-13] MEDS ORDERED: ONDANSETRON 4 MG/2 ML INJ IV ONE ×2 (06:30→08:43)
[2020-01-13] MEDS ORDERED: hydrALAZINE 20 MG/1 ML INJ IV ONE ×2 (06:31→08:30)
--- NOTE | 2020-01-13 06:39 | Emergency Department Report ---
ED Abdominal Pain HPI - General Chief Complaint: Abdominal Pain Stated Complaint: ABDOMINAL PAIN,VOMITING Time Seen by Provider: 01/13/20 06:18 Source: EMS Mode of arrival: Stretcher Limitations: No Limitations - History of Present Illness Initial Comments: 29-year-old female with a past medical history of lupus, seizures, end-stage renal disease on dialysis Friday, , Friday, hypertension, diabetes, and CHF presents to the hospital complains of abdominal pain with multiple episodes of nausea and vomiting since yesterday. Patient is unable to tolerate p.o. intake including her medications, food, or fluids. She complains of soreness to her throat, generalized soreness to her abdomen, and soreness to her chest and back. Patient denies fever, hematemesis, hematochezia, melena, diarrhea, has very little urine output. Patient attempted Tylenol at home for pain without relief. Patient's Percocet allergy noted but if he is a patient does tolerate Tylenol at home. Patient denies previous abdominal surgeries. 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 - Related Data Previous Rx's Medication Instructions Recorded Last Taken Type Clonidine HCl [Catapres] 0.3 mg PO TID #60 tablet 11/27/19 Unknown Rx Epoetin Blair 10,000 Unit [Procrit] 10,000 unit IV ALYSSA PRN vial 11/27/19 Unknown Rx Hydroxychloroquine [Plaquenil] 200 mg PO QDAY #30 tablet 11/27/19 Unknown Rx NIFEdipine XL [Procardia Xl] 60 mg PO Q12HR #60 tablet 11/27/19 Unknown Rx Oxycodone HCl/Acetaminophen 1 each PO Q6HR PRN #24 tablet 11/27/19 Unknown Rx [Percocet 7.5/325 mg] diphenhydrAMINE [Benadryl CAP] 25 mg PO QHS PRN 30 Days #60 11/27/19 Unknown Rx capsule hydrALAZINE [Apresoline TAB] 100 mg PO TID #90 tab 11/27/19 Unknown Rx labetaloL [Labetalol 200mg TAB] 200 mg PO TID #90 tablet 11/27/19 Unknown Rx levETIRAcetam [Keppra TAB] 750 mg PO BID #60 tablet 11/27/19 Unknown Rx levETIRAcetam [Keppra] 750 mg PO BID #60 oral.liqd 11/27/19 Unknown Rx Cyclobenzaprine [Flexeril] 10 mg PO TID PRN #10 tablet 12/25/19 Unknown Rx Ibuprofen [Motrin 800 MG tab] 800 mg PO Q8HR PRN #20 tablet 12/25/19 Unknown Rx HYDROcodone/APAP 5-325 [[place] 1 each PO Q6HR PRN #10 tablet 01/13/20 Unknown Rx 5-325 mg TAB] Ondansetron [Zofran Odt] 4 mg PO Q8HR PRN #20 tab.rapdis 01/13/20 Unknown Rx Promethazine [Phenergan] 25 mg [place] Q6HR PRN #10 supp.rect 01/13/20 Unknown Rx Allergies Allergy/AdvReac Type Severity Reaction Status Date / Time acetaminophen [From Percocet] Allergy Itching Verified 11/09/19 16:15 lisinopril Allergy Swelling Verified 11/09/19 16:15 metoprolol Allergy Unknown Verified 11/09/19 16:15 oxycodone [From Percocet] Allergy Itching Verified 11/09/19 16:15 oxycodone HCl [From Percocet] AdvReac Unknown Verified 11/09/19 16:15 ED Review of Systems ROS: Stated complaint: ABDOMINAL PAIN,VOMITING Other details as noted in HPI Comment: All other systems reviewed and negative ED Past Medical Hx - Past Medical History Hx Hypertension: Yes Hx Congestive Heart Failure: Yes Hx Diabetes: Yes Hx Renal Disease: Yes (HD T,THUR,SAT) Hx Arthritis: Yes Hx Headaches / Migraines: Yes Hx Seizures: Yes Hx Asthma: Yes Hx COPD: Yes Hx HIV: No Additional medical history: Lupus - Surgical History Additional Surgical History: RIGHT ARM graft - Social History Smoking Status: Current Every Day Smoker Substance Use Type: None - Medications Home Medications: Home Medications Medication Instructions Recorded Confirmed Last Taken Type Clonidine HCl [Catapres] 0.3 mg PO TID #60 tablet 11/27/19 Unknown Rx Epoetin Blair 10,000 Unit [Procrit] 10,000 unit IV ALYSSA PRN vial 11/27/19 Unkn own Rx Hydroxychloroquine [Plaquenil] 200 mg PO QDAY #30 tablet 11/27/19 Unknown Rx NIFEdipine XL [Procardia Xl] 60 mg PO Q12HR #60 tablet 11/27/19 Unknown Rx Oxycodone HCl/Acetaminophen 1 each PO Q6HR PRN #24 tablet 11/27/19 Unknown Rx [Percocet 7.5/325 mg] diphenhydrAMINE [Benadryl CAP] 25 mg PO QHS PRN 30 Days #60 11/27/19 Unknown Rx capsule hydrALAZINE [Apresoline TAB] 100 mg PO TID #90 tab 11/27/19 Unknown Rx labetaloL [Labetalol 200mg TAB] 200 mg PO TID #90 tablet 11/27/19 Unknown Rx levETIRAcetam [Keppra TAB] 750 mg PO BID #60 tablet 11/27/19 Unknown Rx levETIRAcetam [Keppra] 750 mg PO BID #60 oral.liqd 11/27/19 Unknown Rx Cyclobenzaprine [Flexeril] 10 mg PO TID PRN #10 tablet 12/25/19 Unknown Rx Ibuprofen [Motrin 800 MG tab] 800 mg PO Q8HR PRN #20 tablet 12/25/19 Unknown Rx HYDROcodone/APAP 5-325 [[place] 1 each PO Q6HR PRN #10 tablet 01/13/20 Unknown Rx 5-325 mg TAB] Ondansetron [Zofran Odt] 4 mg PO Q8HR PRN #20 tab.rapdis 01/13/20 Unknown Rx Promethazine [Phenergan] 25 mg [place] Q6HR PRN #10 supp.rect 01/13/20 Unknown Rx ED Physical Exam - General Limitations: No Limitations - Other Other exam information: General: No acute distress Head: Atraumatic Eyes: normal appearance ENT: Moist mucous membranes Neck: Normal appearance, no midline tenderness Chest: Clear to auscultation bilaterally. Reproducible anterior chest wall tenderness CV: Regular rate and rhythm Abdomen: Soft, normal bowel sounds, generalized abdominal tenderness greatest in the left abdomen no rebound or guarding. Nondistended Back: Normal inspection Extremity: Right arm dialysis access with positive Neuro: Alert O x 3, no facial asymmetry, speech clear, no gross motor sensory deficit Psych: Appropriate behavior Skin: No rash ED Course Vital Signs 01/13/20 01/13/20 01/13/20 05:15 06:32 06:37 Temperature 98.6 F Pulse Rate 100 H 88 Respiratory 20 20 Rate Blood Pressure 208/130 Blood Pressure 207/133 [Left] O2 Sat by Pulse 100 100 100 Oximetry 01/13/20 01/13/20 01/13/20 06:53 07:27 07:57 Temperature Pulse Rate 92 H 98 H 94 H Respiratory 19 19 Rate Blood Pressure 207/133 Blood Pressure 226/131 206/134 [Left] O2 Sat by Pulse 100 100 Oximetry 01/13/20 01/13/20 01/13/20 08:30 08:46 09:00 Temperature Pulse Rate 96 H 117 H 114 H Respiratory 21 16 22 Rate Blood Pressure 216/131 206/136 Blood Pressure 220/135 [Left] O2 Sat by Pulse 100 100 87 Oximetry 01/13/20 01/13/20 01/13/20 09:16 09:30 10:00 Temperature Pulse Rate 110 H 111 H 107 H Respiratory 19 22 19 Rate Blood Pressure 213/130 224/144 Blood Pressure 207/138 [Left] O2 Sat by Pulse 100 100 Oximetry 01/13/20 01/13/20 10:31 11:08 Temperature Pulse Rate 103 H 111 H Respiratory 19 15 Rate Blood Pressure Blood Pressure 169/110 152/109 [Left] O2 Sat by Pulse 100 100 Oximetry ED Medical Decision Making - Lab Data Result diagrams: 01/13/20 05:44 01/13/20 05:44 Lab Results 01/13/20 01/13/20 01/13/20 Range/Units 05:44 05:44 06:26 WBC 4.3 L (4.5-11.0) K/mm3 RBC 3.59 L (3.65-5.03) M/mm3 Hgb 10.1 (10.1-14.3) gm/dl Hct 32.2 (30.3-42.9) % MCV 90 (79-97) fl MCH 28 (28-32) pg MCHC 31 (30-34) % RDW 17.5 H (13.2-15.2) % Plt Count 286 (140-440) K/mm3 Lymph % (Auto) 16.9 (13.4-35.0) % [place] % (Auto) 8.9 H (0.0-7.3) % Eos % (Auto) 3.1 (0.0-4.3) % Baso % (Auto) 0.5 (0.0-1.8) % Lymph # 0.7 L (1.2-5.4) K/mm3 [place] # 0.4 (0.0-0.8) K/mm3 Eos # 0.1 (0.0-0.4) K/mm3 Baso # 0.0 (0.0-0.1) K/mm3 Seg Neutrophils % 70.6 H (40.0-70.0) % Seg Neutrophils # 3.1 (1.8-7.7) K/mm3 Sodium 133 L (137-145) mmol/L Potassium 4.0 (3.6-5.0) mmol/L Chloride 96.1 L (98-107) mmol/L Carbon Dioxide 25 (22-30) mmol/L Anion Gap 16 mmol/L BUN 15 (7-17) mg/dL Creatinine 6.4 H (0.7-1.2) mg/dL Estimated GFR 9 ml/min BUN/Creatinine Ratio 2 % Glucose 75 (65-100) mg/dL Calcium 9.0 (8.4-10.2) mg/dL Total Bilirubin 0.30 (0.1-1.2) mg/dL AST 13 (5-40) units/L ALT < 5 L (7-56) units/L Alkaline Phosphatase 106 (35-129) units/L Total Protein 8.5 H (6.3-8.2) g/dL Albumin 2.9 L (3.9-5) g/dL Albumin/Globulin Ratio 0.5 % Lipase 17 (13-60) units/L HCG, Qual Negative (Negative) - EKG Data -: EKG Interpreted by Tn EKG shows normal: sinus rhythm, ST-T waves (no stemi) Rate: normal - EKG Data When compared to previous EKG there are: no significant change - Radiology Data Radiology results: report reviewed CT ABDOMEN AND PELVIS WITHOUT CONTRAST HISTORY: gen abd pain n,v, lupus, esrd COMPARISON: 10/03/2019 TECHNIQUE: Axial CT images were obtained through the abdomen and pelvis without IV contrast. Sagittal and coronal reformatted images. All CT scans at this location are performed using CT dose reduction for ALARA by means of automated exposure control. FINDINGS: CT ABDOMEN: Lung Bases: The visualized lung bases are well-aerated. Mild to moderate cardiomegaly is stable. Liver: Stable mild hepatomegaly with no obvious focal liver lesion. Biliary: A 5 mm calcified gallstone is identified within the gallbladder. No biliary dilatation or inflammation is suspected. Spleen: Borderline spleen size. Pancreas: No significant abnormality. Adrenals: No significant abnormality. Kidneys: Moderate bilateral renal atrophy and scattered renal cysts are identified. There appear to be a few punctate calyceal stones in both kidneys. No hydronephrosis. Lymphatics: Mildly enlarged retroperitoneal lymph nodes appear stable in size and number. The etiology of these are unclear. Vasculature: Moderate renovascular calcifications. Bowel/Peritoneum: No evidence for bowel obstruction or focal inflammation. The appendix is not confidently identified. Mild diffuse mesenteric and subcutaneous edema is identified which could represent mild anasarca. There is small free pelvic fluid in the cul-de-sac. CT PELVIS: : The uterus, adnexa and bladder are unremarkable. Osseous Structures: No significant abnormality. Additional Findings: None IMPRESSION: No acute process or significant change since 10/03/2019. Mild to moderate cardiomegaly. Mild hepatomegaly and borderline splenomegaly. Gallstone. Bilateral renal atrophy, scattered renal cysts and punctate renal stones but no obstruction. Mild diffuse subcutaneous and mesenteric edema suggesting mild anasarca. - Medical Decision Making Patient's pain and vomiting improved after Dilaudid, Benadryl, Zofran, and Reglan. Patient presented significantly hypertensive and states she has been unable to tolerate p.o. BP meds. Patient has an extensive list of previous blood pressure medications and takes several antihypertensives daily. Patient was provided several doses of IV hydralazine without improvement in blood pressure and heart rate did increase. Patient was then provided oral medications based on her previous medical record p.o. Procardia 60 mg XL and was also provided clonidine 0.2 mg. Patient was able to keep down the medication and had improvement in her blood pressure. Patient was not tachycardic initially but became mildly tachycardic after hydralazine which is a known side effect. At time of discharge patient is feeling much better and prefers to go home. She was encouraged to call her dialysis center today to try to still get her dialysis today. Patient does not have hyperkalemia, uremia, or clinical findings/symptoms of pulmonary edema therefore she does not require emergent in- house dialysis at this time pt states she does not make urine there ua was not sent. HR 103 at rest - Differential Diagnosis Hypertensive emergency/urgency, gastritis, intra-abdominal infection, pregn Critical Care Time: No Critical care attestation.: If time is entered above; I have spent that time in minutes in the direct care of this critically ill patient, excluding procedure time. ED Disposition Clinical Impression: Uncontrolled hypertension, ESRD (end stage renal disease) on dialysis, Lupus (systemic lupus erythematosus), Nausea and vomiting, Abdominal pain Disposition: TO HOME OR SELFCARE Is pt being admited?: No Does the pt Need Aspirin: No Condition: Stable Instructions: Acute Nausea and Vomiting (ED), Abdominal Pain (ED), Hypertension (ED) Additional Instructions: Take the medication as prescribed. Follow-up with your doctor or doctor/clinic provided. Return if symptoms worsen as indicated by your discharge i nstructions. Call your dialysis center upon discharge to reschedule your dialysis time. 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
--- NOTE | 2020-01-13 07:41 | Cat Scan Report ---
CT ABDOMEN AND PELVIS WITHOUT CONTRAST HISTORY: gen abd pain n,v, lupus, esrd COMPARISON: 10/03/2019 TECHNIQUE: Axial CT images were obtained through the abdomen and pelvis without IV contrast. Sagittal and coronal reformatted images. All CT scans at this location are performed using CT dose reduction for ALARA by means of automated exposure control. FINDINGS: CT ABDOMEN: Lung Bases: The visualized lung bases are well-aerated. Mild to moderate cardiomegaly is stable. Liver: Stable mild hepatomegaly with no obvious focal liver lesion. Biliary: A 5 mm calcified gallstone is identified within the gallbladder. No biliary dilatation or in flammation is suspected. Spleen: Borderline spleen size. Pancreas: No significant abnormality. Adrenals: No significant abnormality. Kidneys: Moderate bilateral renal atrophy and scattered renal cysts are identified. There appear to b e a few punctate calyceal stones in both kidneys. No hydronephrosis. Lymphatics: Mildly enlarged retroperitoneal lymph nodes appear stable in size and number. The etiolog y of these are unclear. Vasculature: Moderate renovascular calcifications. Bowel/Peritoneum: No evidence for bowel obstruction or focal inflammation. The appendix is not confid ently identified. Mild diffuse mesenteric and subcutaneous edema is identified which could represent mild anasarca. There is small free pelvic fluid in the cul-de-sac. CT PELVIS: : The uterus, adnexa and bladder are unremarkable. Osseous Structures: No significant abnormality. Additional Findings: None IMPRESSION: No acute process or significant change since 10/03/2019. Mild to moderate cardiomegaly. Mild hepatomegaly and borderline splenomegaly. Gallstone. Bilateral renal atrophy, scattered renal cysts and punctate renal stones but no obstruction. Mild diffuse subcutaneous and mesenteric edema suggesting mild anasarca. Signer Name: Khoi Yu Jr, MD Signed: 01/13/2020 7:37 AM Workstation Name: [id number]
[2020-01-13] MEDS ORDERED: diphenhydrAMINE 50 MG/ML VIAL IV ONE ×2 (08:30→08:43)
[2020-01-13] MEDS ORDERED: METOCLOPRAMIDE 10 MG/2 ML INJ IV ONE (08:43)
[2020-01-13] MEDS ORDERED: NIFEdipine XL 60 MG TAB PO NR (08:53)
[2020-01-13] MEDS ORDERED: cloNIDine 0.2 MG TAB PO ONE (09:38)
[2020-01-13 11:09] VITALS: BP 152/109
== END 2020-01-13 12:11 | disposition home or self-care (01) ==
LOC: ED 05:07
DX: I13.2 Hypertensive heart and chronic kidney disease with heart failure and with stage 5 chronic kidney disease, or end stage renal disease (principal); I50.9 Heart failure, unspecified; E11.22 Type 2 diabetes mellitus with diabetic chronic kidney disease; N18.6 End stage renal disease; M32.9 Systemic lupus erythematosus, unspecified; R11.2 Nausea with vomiting, unspecified; R10.9 Unspecified abdominal pain; M19.90 Unspecified osteoarthritis, unspecified site; J44.9 Chronic obstructive pulmonary disease, unspecified; F17.200 Nicotine dependence, unspecified, uncomplicated; G43.909 Migraine, unspecified, not intractable, without status migrainosus; Z86.69 Personal history of other diseases of the nervous system and sense organs; Z79.899 Other long term (current) drug therapy; Z88.8 Allergy status to other drugs, medicaments and biological substances; Z98.890 Other specified postprocedural states; Z99.2 Dependence on renal dialysis
CPT/HCPCS: 36415; 74176; 80053; 83690; 84703; 85025; 93005; 96374; 96375; 96376; 99284; J0360; J1170; J1200; J2405; J2765

== ENCOUNTER 2020-01-20 15:22 | Observation (INO) | payer MEDICARE ==
--- NOTE | 2020-01-20 16:48 | XRay Report ---
CHEST PA AND LATERAL VIEWS INDICATION: weakness. COMPARISON: 12/25/2019. FINDINGS: Support devices: None. Heart: Enlarged, unchanged. Lungs/Pleura: Pulmonary vessels are mildly enlarged. Retrocardiac opacity may be due to atelectasis b ut is nonspecific. No significant effusion, no pneumothorax. IMPRESSION: 1. Cardiomegaly with pulmonary venous hypertension. It would be difficult to exclude mild interstitia l edema. Signer Name: Kamari Raymond MD Signed: 01/20/2020 4:43 PM Workstation Name: [id number]
[2020-01-20] MEDS ORDERED: HYDROmorphone 1 MG/1 ML INJ IV ONE (19:33)
[2020-01-20] MEDS ORDERED: dexAMETHasone 20 MG/5 ML VIAL IV ONE (19:33)
--- NOTE | 2020-01-20 19:34 | Emergency Department Report ---
ED General Adult HPI - General Chief complaint: Pain General Stated complaint: BODY PAIN PUI?: No Time Seen by Provider: 01/20/20 19:30 Source: patient, EMS Mode of arrival: Wheelchair Limitations: No Limitations - History of Present Illness Initial comments: Patient is a 29-year-old female that presents emergency room with complaints of body aches x3 hours. Patient states she feels like she is having a lupus flareup. Patient states it started in dialysis. Patient states she got a full dialysis treatment. Patient denies chest pain or shortness of breath. Patient denies fever and chills. Patient states her generalized body pain is a 10 out of 10. Patient states it is worse with movement and better with rest. Patient states she has a past medical history of arthritis, asthma, CHF, diabetes, migraines, hypertension, end-stage renal disease on dialysis and lupus. Patient states she has dialysis on Friday. Patient also complains of chest pain. Patient states chest pain is a 10 out of 10. Patient states the chest pain is better with rest and worse with exertion. Patient denies shortness of breath. Patient states the chest pain is nonradiating. Patient denies recent travel. Patient denies recent international travel. Patient denies exposure to the novel coronavirus. Patient denies sick contacts. Patient denies fever and chills. Patient denies cough. Patient denies diarrhea. Patient denies coming in contact with anybody with symptoms of the novel coronavirus. -: Sudden Location: upper extremity, lower extremity Radiation: non-radiation Severity scale (0 -10): 10 Quality: stabbing, constant Consistency: constant Improves with: rest Worsens with: movement Associated Symptoms: chest pain. denies: confusion, cough, diaphoresis, fever/chills, headaches, loss of appetite, malaise, nausea/vomiting, rash, seizure, shortness of breath, syncope, weakness Treatments Prior to Arrival: none - Related Data Previous Rx's Medication Instructions Recorded Last Taken Type Clonidine HCl [Catapres] 0.3 mg PO TID #60 tablet 11/27/19 Unknown Rx Epoetin [place] 10,000 Unit [Procrit] 10,000 unit IV ALYSSA PRN vial 11/27/19 Unknown Rx Hydroxychloroquine [Plaquenil] 200 mg PO QDAY #30 tablet 11/27/19 Unknown Rx NIFEdipine XL [Procardia Xl] 60 mg PO Q12HR #60 tablet 11/27/19 Unknown Rx Oxycodone HCl/Acetaminophen 1 each PO Q6HR PRN #24 tablet 11/27/19 Unknown Rx [Percocet 7.5/325 mg] diphenhydrAMINE [Benadryl CAP] 25 mg PO QHS PRN 30 Days #60 11/27/19 Unknown Rx capsule hydrALAZINE [Apresoline TAB] 100 mg PO TID #90 tab 11/27/19 Unknown Rx labetaloL [Labetalol 200mg TAB] 200 mg PO TID #90 tablet 11/27/19 Unknown Rx levETIRAcetam [Keppra TAB] 750 mg PO BID #60 tablet 11/27/19 Unknown Rx levETIRAcetam [Keppra] 750 mg PO BID #60 oral.liqd 11/27/19 Unknown Rx Cyclobenzaprine [Flexeril] 10 mg PO TID PRN #10 tablet 12/25/19 Unknown Rx Ibuprofen [Motrin 800 MG tab] 800 mg PO Q8HR PRN #20 tablet 12/25/19 Unknown Rx HYDROcodone/APAP 5-325 [[place] 1 each PO Q6HR PRN #10 tablet 01/13/20 Unknown Rx 5-325 mg TAB] Ondansetron [Zofran Odt] 4 mg PO Q8HR PRN #20 tab.rapdis 01/13/20 Unknown Rx Promethazine [Phenergan] 25 mg [place] Q6HR PRN #10 supp.rect 01/13/20 Unknown Rx Allergies Allergy/AdvReac Type Severity Reaction Status Date / Time acetaminophen [From Percocet] Allergy Itching Verified 01/20/20 15:43 lisinopril Allergy Swelling Verified 01/20/20 15:43 metoprolol Allergy Unknown Verified 01/20/20 15:43 oxycodone [From Percocet] Allergy Itching Verified 01/20/20 15:43 oxycodone HCl [From Percocet] AdvReac Unknown Verified 01/20/20 15:43 ED Review of Systems ROS: Stated complaint: BODY PAIN Other details as noted in HPI Constitutional: denies: chills, fever Eyes: denies: eye pain, eye discharge, vision change ENT: denies: ear pain, throat pain Respiratory: denies: cough, shortness of breath, wheezing Cardiovascular: chest pain. denies: palpitations Endocrine: no symptoms reported Gastrointestinal: denies: abdominal pain, nausea, diarrhea Genitourinary: denies: urgency, dysuria, discharge Musculoskeletal: back pain. denies: joint swelling, arthralgia Skin: denies: rash, lesions Neurological: denies: headache, weakness, paresthesias Psychiatric: denies: anxiety, depression Hematological/Lymphatic: denies: easy bleeding, easy bruising ED Past Medical Hx - Past Medical History Previous Medical History?: Yes Hx Hypertension: Yes Hx Congestive Heart Failure: Yes Hx Diabetes: Yes Hx Renal Disease: Yes (HD T,THUR,SAT) Hx Arthritis: Yes Hx Headaches / Migraines: Yes Hx Seizures: Yes Hx Asthma: Yes Hx COPD: Yes Hx HIV: No Additional medical history: Lupus - Surgical History Past Surgical History?: Yes Additional Surgical History: RIGHT ARM graft - Family History Family history: no significant - Social History Smoking Status: Never Smoker Substance Use Type: None - Medications Home Medications: Home Medications Medication Instructions Recorded Confirmed Last Taken Type Clonidine HCl [Catapres] 0.3 mg PO TID #60 tablet 11/27/19 Unknown Rx Epoetin [place] 10,000 Unit [Procrit] 10,000 unit IV ALYSSA PRN vial 11/27/19 Unknown Rx Hydroxychloroquine [Plaquenil] 200 mg PO QDAY #30 tablet 11/27/19 Unknown Rx NIFEdipine XL [Procardia Xl] 60 mg PO Q12HR #60 tablet 11/27/19 Unknown Rx Oxycodone HCl/Acetaminophen 1 each PO Q6HR PRN #24 tablet 11/27/19 Unknown Rx [Percocet 7.5/325 mg] diphenhydrAMINE [Benadryl CAP] 25 mg PO QHS PRN 30 Days #60 11/27/19 Unknown Rx capsule hydrALAZINE [Apresoline TAB] 100 mg PO TID #90 tab 11/27/19 Unknown Rx labetaloL [Labetalol 200mg TAB] 200 mg PO TID #90 tablet 11/27/19 Unknown Rx levETIRAcetam [Keppra TAB] 750 mg PO BID #60 tablet 11/27/19 Unknown Rx levETIRAcetam [Keppra] 750 mg PO BID #60 oral.liqd 11/27/19 Unknown Rx Cyclobenzaprine [Flexeril] 10 mg PO TID PRN #10 tablet 12/25/19 Unknown Rx Ibuprofen [Motrin 800 MG tab] 800 mg PO Q8HR PRN #20 tablet 12/25/19 Unknown Rx HYDROcodone/APAP 5-325 [[place] 1 each PO Q6HR PRN #10 tablet 01/13/20 Unknown Rx 5-325 mg TAB] Ondansetron [Zofran Odt] 4 mg PO Q8HR PRN #20 tab.rapdis 01/13/20 Unknown Rx Promethazine [Phenergan] 25 mg [place] Q6HR PRN #10 supp.rect 01/13/20 Unknown Rx ED Physical Exam - General Limitations: No Limitations General appearance: alert, in no apparent distress - Head Head exam: Present: atraumatic, normocephalic - Eye Eye exam: Present: normal appearance - ENT ENT exam: Present: mucous membranes moist - Neck Neck exam: Present: normal inspection - Respiratory Respiratory exam: Present: normal lung sounds bilaterally. Absent: respiratory distress - Cardiovascular Cardiovascular Exam: Present: regular rate, normal rhythm. Absent: systolic murmur, diastolic murmur, rubs, gallop - GI/Abdominal GI/Abdominal exam: Present: soft, normal bowel sounds - Extremities Exam Extremities exam: Present: normal inspection - Back Exam Back exam: Present: normal inspection - Neurological Exam Neurological exam: Present: alert, oriented X3 - Psychiatric Psychiatric exam: Present: normal affect, normal mood - Skin Skin exam: Present: warm, dry, intact, normal color. Absent: rash ED Course Vital Signs 01/20/20 15:45 Temperature 98.6 F Pulse Rate 84 Respiratory 18 Rate Blood Pressure 194/126 O2 Sat by Pulse 99 Oximetry - Reevaluation(s) Reevaluation #1: Patient states her body pain is much better. Patient states is now a 2 out of 10. Patient states she is feeling much better. Patient tolerated juice and cr ackers. Patient states her chest pain is a 4 out of 10. 01/20/20 20:44 Reevaluation #2: I discussed all results with patient. I discussed plan of care with patient. Patient agrees with plan of care and admission. Patient to be admitted to the hospitalist service. 01/20/20 21:46 - Consultations Consultation #1: Hospitalist consulted for admission. Hospitalist to admit patient. 01/20/20 21:46 ED Medical Decision Making - Lab Data Result diagrams: 01/20/20 Unknown 01/20/20 Unknown - EKG Data -: EKG Interpreted by Me EKG shows normal: sinus rhythm, axis, intervals, QRS complexes, ST-T waves Rate: normal - Radiology Data Radiology results: report reviewed, image reviewed CHEST PA AND LATERAL VIEWS INDICATION: weakness. COMPARISON: 12/25/2019. FINDINGS: Support devices: None. Heart: Enlarged, unchanged. Lungs/Pleura: Pulmonary vessels are mildly enlarged. Retrocardiac opacity may be due to atelectasis but is nonspecific. No significant effusion, no pneumothorax. IMPRESSION: 1. Cardiomegaly with pulmonary venous hypertension. It would be difficult to exclude mild interstitial edema. - Medical Decision Making Patient is a 29-year-old female that presents emergency room with complaints of chest pain and generalized body pain and a possible lupus flareup. Patient was given multiple medications and her pain improved. Patient had labs done and it showed an elevated troponin and end-stage renal disease and chronic anemia. Patient admitted to the hospitalist service. Patient's chest x-ray shows possible pulmonary edema. Patient also had an EKG done which does not show a STEMI. - Differential Diagnosis ACS, chest pain, lupus flareup, generalized body aches. Critical Care Time: Yes Critical care time in (mins) excluding proc time.: 35 Critical care attestation.: If time is entered above; I have spent that time in minutes in the direct care of this critically ill patient, excluding procedure time. Critical Care Time: 35 minutes ED Disposition Clinical Impression: ESRD (end stage renal disease), Elevated troponin level, ESRD (end stage renal disease) on dialysis, Generalized pain Chest pain Qualifiers: Chest pain type: unspecified Qualified Code(s): R07.9 - Chest pain, unspecified Anemia in CKD (chronic kidney disease) Qualifiers: Chronic kidney disease stage: on chronic dialysis Qualified Code(s): N18.6 - End stage renal disease; D63.1 - Anemia in chronic kidney disease; Z99.2 - Dependence on renal dialysis Lupus (systemic lupus erythematosus) Qualifiers: Systemic lupus erythematosus type: unspecified Systemic lupus erythematosus organ involvement: unspecified Qualified Code(s): M32.9 - Systemic lupus erythematosus, unspecified Pulmonary edema Qualifiers: Chronicity: acute Qualified Code(s): J81.0 - Acute pulmonary edema Disposition: OP ADMIT IP TO THIS HOSP Is pt being admited?: Yes Does the pt Need Aspirin: No Condition: Critical Time of Disposition: 21:46 HEART Score - HEART Score History: Moderately suspicious EKG: Non-specific Age: < 45 Risk factors: > 3 risk factors or hx of atherosclerotic disease Troponin: Troponin T 0.182 ng/mL (0.00-0.029) H* 01/20/20 Unknown Troponin: > 3x normal limit HEART Score: 6 YULIYA score - Yuliya Score Age > 65: (0) No Aspirin use within the Past 7 Days: (1) Yes 3 or more CAD Risk Factors: (0) No 2 or more Angina events in past 24 hrs: (0) No Known CAD with more than 50% Stenosis: (0) No Elevated Cardiac Markers: (0) No ST Deviation Greater than 0.5mm: (0) No
[2020-01-20] MEDS: ONDANSETRON 4 MG/2 ML INJ IV ONE (20:06)
[2020-01-20] MEDS ORDERED: diphenhydrAMINE 50 MG/ML VIAL IV ONE (20:44)
[2020-01-20 21:24] LABS: BUN/Creatinine Ratio 2; Blood Urea Nitrogen 9 mg/dL (7-17); Calcium 8.6 mg/dL (8.4-10.2); Hemolysis Index 11
[2020-01-20 21:27] LABS: Alanine Aminotransferase < 5 units/L (7-56)
[2020-01-20 21:31] LABS: Basophils % (Auto) 0.5 % (0.0-1.8); Eosinophils # (Auto) 0.1 K/mm3 (0.0-0.4); Eosinophils % (Auto) 2.2 % (0.0-4.3); Hematocrit 29.1 % (30.3-42.9); Hemoglobin 9.3 gm/dl (10.1-14.3); Lymphocytes # (Auto) 0.4 K/mm3 (1.2-5.4); Lymphocytes % (Auto) 10.1 % (13.4-35.0); Mean Corpuscular HGB Conc 32 % (30-34); Mean Corpuscular Volume 90 fl (79-97); Monocytes # (Auto) 0.3 K/mm3 (0.0-0.8); Monocytes % (Auto) 7.4 % (0.0-7.3); Platelet Count 254 K/mm3 (140-440); Red Blood Count 3.25 M/mm3 (3.65-5.03); Red Cell Distribution Width 17.3 % (13.2-15.2)
[2020-01-20] MEDS ORDERED: ASPIRIN 325 MG TAB PO ONE (21:35)
[2020-01-20 21:41] LABS: Chol/HDL Ratio 2.22 %
[2020-01-20] MEDS ORDERED: ONDANSETRON 4 MG/2 ML INJ IV PRN (22:58)
[2020-01-20] MEDS ORDERED: ACETAMINOPHEN 325 MG TAB PO PRN (22:58)
--- NOTE | 2020-01-21 02:39 | History and Physical Report ---
History of Present Illness Date of examination: 01/20/20 Date of admission: 01/20/20 21:50 Chief complaint: Chest pain History of present illness: 29-year-old female with known history of lupus and end-stage renal disease on dialysis presenting to the emergency room today complaining of generalized body aches and pain and also chest pain for about 3 hours prior to reporting to the emergency room. Patient gets dialysis earlier i on Friday, and Saturdays. She denies any fever or chills, no nausea vomiting, no headache or dizziness, no history of recent travel or sick contacts. Chest pain has been about 10/10 on a scale of 10. Pain is worse on exertion and gets better on rest. Chest pain is left-sided and nonradiating. Work-up in the emergency room reveals slightly elevated troponin above her baseline, EKG was within normal limits. Past History Past Medical History: arthritis, COPD, ESRD (On dialysis Tuesdays, and Saturdays.), hypertension, other (Lupus, migraines, history of lupus,) Past Surgical History: Other (Right arm AV fistula) Social history: no significant social history Family history: no significant family history Medications and Allergies Allergies Allergy/AdvReac Type Severity Reaction Status Date / Time acetaminophen [From Percocet] Allergy Itching Verified 01/20/20 15:43 lisinopril Allergy Swelling Verified 01/20/20 15:43 metoprolol Allergy Unknown Verified 01/20/20 15:43 oxycodone [From Percocet] Allergy Itching Verified 01/20/20 15:43 oxycodone HCl [From Percocet] AdvReac Unknown Verified 01/20/20 15:43 Home Medications Medication Instructions Recorded Confirmed Last Taken Type Clonidine HCl [Catapres] 0.3 mg PO TID #60 tablet 11/27/19 Unknown Rx Epoetin [place] 10,000 Unit [Procrit] 10,000 unit IV ALYSSA PRN vial 11/27/19 Unknown Rx Hydroxychloroquine [Plaquenil] 200 mg PO QDAY #30 tablet 11/27/19 Unknown Rx NIFEdipine XL [Procardia Xl] 60 mg PO Q12HR #60 tablet 11/27/19 Unknown Rx Oxycodone HCl/Acetaminophen 1 each PO Q6HR PRN #24 tablet 11/27/19 Unknown Rx [Percocet 7.5/325 mg] diphenhydrAMINE [Benadryl CAP] 25 mg PO QHS PRN 30 Days #60 11/27/19 Unknown Rx capsule hydrALAZINE [Apresoline TAB] 100 mg PO TID #90 tab 11/27/19 Unknown Rx labetaloL [Labetalol 200mg TAB] 200 mg PO TID #90 tablet 11/27/19 Unknown Rx levETIRAcetam [Keppra TAB] 750 mg PO BID #60 tablet 11/27/19 Unknown Rx levETIRAcetam [Keppra] 750 mg PO BID #60 oral.liqd 11/27/19 Unknown Rx Cyclobenzaprine [Flexeril] 10 mg PO TID PRN #10 tablet 12/25/19 Unknown Rx Ibuprofen [Motrin 800 MG tab] 800 mg PO Q8HR PRN #20 tablet 12/25/19 Unknown Rx HYDROcodone/APAP 5-325 [[place] 1 each PO Q6HR PRN #10 tablet 01/13/20 Unknown Rx 5-325 mg TAB] Ondansetron [Zofran Odt] 4 mg PO Q8HR PRN #20 tab.rapdis 01/13/20 Unknown Rx Promethazine [Phenergan] 25 mg [place] Q6HR PRN #10 supp.rect 01/13/20 Unknown Rx Active Meds: Active Medications Acetaminophen (Tylenol) 650 mg PO Q4H PRN PRN Reason: Pain MILD(1-3)/Fever >100.5/WOLFF Aspirin (Ecotrin) 325 mg PO QDAY FERNANDO Nitroglycerin (Nitrostat) 0.4 mg SL Q5M PRN PRN Reason: Chest Pain Ondansetron HCl (Zofran) 4 mg IV Q8H PRN PRN Reason: Nausea And Vomiting Sodium Chloride (Sodium Chloride Flush Syringe 10 Ml) 10 ml IV PRN PRN PRN Reason: LINE FLUSH Sodium Chloride (Sodium Chloride Flush Syringe 10 Ml) 10 ml IV BID FERNANDO Sodium Chloride (Sodium Chloride Flush Syringe 10 Ml) 10 ml IV PRN PRN PRN Reason: LINE FLUSH Review of Systems Constitutional: no fever, no chills Ears, nose, mouth and throat: no headache, no vertigo Cardiovascular: chest pain, no palpitations, no lightheadedness Respiratory: shortness of breath, no cough Gastrointestinal: no abdominal pain, no nausea, no vomiting, no diarrhea Genitourinary Female: no dysuria, no hematuria Musculoskeletal: no neck pain, no low back pain Integumentary: no rash, no pruritis Neurological: no headaches, no change in mentation Psychiatric: no anxiety, no confusion Exam - Constitutional Vitals: Temp Pulse Resp BP Pulse Ox 98.6 F 95 H 15 186/123 100 01/20/20 15:45 01/20/20 23:34 01/20/20 23:34 01/20/20 23:34 01/20/20 23:34 General appearance: Present: no acute distress, well-nourished - EENT Eyes: Present: PERRL, EOM intact ENT: hearing intact, clear oral mucosa, dentition normal - Neck Neck: Present: supple, normal ROM - Respiratory Respiratory effort: normal Respiratory: bilateral: CTA - Cardiovascular Rhythm: regular Heart Sounds: Present: S1 & S2 - Extremities Extremities: no ischemia, pulses intact, pulses symmetrical, No edema, Full ROM, abnormal (Right upper extremity AV fistula with palpable thrill) Peripheral Pulses: within normal limits - Abdominal General gastrointestinal: Present: soft, non-tender, non-distended - Integumentary Integumentary: Present: clear, warm, dry - Musculoskeletal Musculoskeletal: strength equal bilaterally - Psychiatric Psychiatric: appropriate mood/affect, intact judgment & insight, cooperative - Neurologic Neurologic: CNII-XII intact, moves all extremities HEART Score - HEART Score EKG: Non-specific Age: < 45 Risk factors: > 3 risk factors or hx of atherosclerotic disease Troponin: Troponin T 0.182 ng/mL (0.00-0.029) H* 01/20/20 Unknown Troponin: > 3x normal limit Results - Labs CBC & Chem 7: 01/21/20 04:06 01/20/20 Unknown Labs: Abnormal lab results 01/20/20 01/20/20 01/20/20 Range/Units Unknown Unknown Unknown WBC 3.9 L (4.5-11.0) K/mm3 RBC 3.25 L (3.65-5.03) M/mm3 Hgb 9.3 L (10.1-14.3) gm/dl Hct 29.1 L (30.3-42.9) % RDW 17.3 H (13.2-15.2) % Lymph % (Auto) 10.1 L (13.4-35.0) % Vance % (Auto) 7.4 H (0.0-7.3) % Lymph # 0.4 L (1.2-5.4) K/mm3 Sodium 133 L (137-145) mmol/L Creatinine 4.1 H (0.7-1.2) mg/dL ALT < 5 L (7-56) units/L Troponin T (0.00-0.029) ng/mL NT-Pro-B Natriuret Pep > 45136 H (0-450) pg/mL Total Protein 8.5 H (6.3-8.2) g/dL Albumin 3.0 L (3.9-5) g/dL LDL Cholesterol Direct (50-130) mg/dL 01/20/20 Range/Units Unknown WBC (4.5-11.0) K/mm3 RBC (3.65-5.03) M/mm3 Hgb (10.1-14.3) gm/dl Hct (30.3-42.9) % RDW (13.2-15.2) % Lymph % (Auto) (13.4-35.0) % [place] % (Auto) (0.0-7.3) % Lymph # (1.2-5.4) K/mm3 Sodium (137-145) mmol/L Creatinine (0.7-1.2) mg/dL ALT (7-56) units/L Troponin T 0.182 H* (0.00-0.029) ng/mL NT-Pro-B Natriuret Pep (0-450) pg/mL Total Protein (6.3-8.2) g/dL Albumin (3.9-5) g/dL LDL Cholesterol Direct 40 L (50-130) mg/dL Assessment and Plan - Patient Problems (1) Chest pain Current Visit: Yes Status: Acute Qualifiers: Chest pain type: unspecified Qualified Code(s): R07.9 - Chest pain, uns pecified Plan to address problem: Patient admitted and placed on telemetry. We will check serial cardiac enzyme. Patient will be placed on daily aspirin. Sublingual nitroglycerin and IV morphine as needed for chest pain. The patient will be scheduled for stress test and we also place a consult to cardiology for further evaluation and recommendation. (2) ESRD (end stage renal disease) on dialysis Current Visit: Yes Status: Chronic Plan to address problem: Patient has been on dialysis on Tuesdays, and Saturdays (3) SLE (systemic lupus erythematosus) Current Visit: Yes Status: Chronic Qualifiers: Systemic lupus erythematosus type: unspecified Systemic lupus erythematosus organ involvement: unspecified Plan to address problem: Has known history of lupus. We will continue her routine home medications. (4) DVT prophylaxis Current Visit: No Status: Acute Plan to address problem: We will place patient on subcutaneous heparin. (5) Full code status Current Visit: Yes Status: Acute
[2020-01-21 05:01] LABS: Basophils % (Auto) 0.2 % (0.0-1.8); Eosinophils % (Auto) 0.1 % (0.0-4.3); Hematocrit 31.4 % (30.3-42.9); Hemoglobin 9.8 gm/dl (10.1-14.3); Lymphocytes # (Auto) 0.8 K/mm3 (1.2-5.4); Lymphocytes % (Auto) 15.3 % (13.4-35.0); Mean Corpuscular HGB Conc 31 % (30-34); Mean Corpuscular Volume 91 fl (79-97); Monocytes # (Auto) 0.4 K/mm3 (0.0-0.8); Monocytes % (Auto) 7.7 % (0.0-7.3); Platelet Count 270 K/mm3 (140-440); Red Blood Count 3.44 M/mm3 (3.65-5.03); Red Cell Distribution Width 17.1 % (13.2-15.2)
[2020-01-21 05:15] LABS: Calcium 9.1 mg/dL (8.4-10.2)
[2020-01-21 05:16] LABS: INR 1.33 (0.87-1.13)
[2020-01-21] MEDS ORDERED: HYDROmorphone 1 MG/1 ML INJ IV ONE (05:44)
[2020-01-21] MEDS ORDERED: hydrALAZINE 20 MG/1 ML INJ IV ONE (05:45)
[2020-01-21] MEDS ORDERED: HYDROmorphone 1 MG/1 ML INJ ONE (05:54)
[2020-01-21] MEDS ORDERED: HEPARIN 5,000 UNIT/1 ML VIAL ONE (05:57)
[2020-01-21] MEDS ORDERED: hydrALAZINE 20 MG/1 ML INJ ONE (05:57)
[2020-01-21] MEDS ORDERED: HEPARIN 5,000 UNIT/1 ML VIAL SUB-Q SCH (06:00)
[2020-01-21] MEDS: NITROGLYCERIN 0.4 MG TAB SUBL SL PRN ×3 (09:05→09:16)
[2020-01-21] MEDS ORDERED: NITROGLYCERIN 0.4 MG TAB SUBL SL ONE (09:07)
--- NOTE | 2020-01-21 09:55 | Consultation ---
History of Present Illness Consult date: 01/21/20 Requesting physician: ROBERT DE LA CRUZ Consult reason: chest pain History of present illness: The patient is a 29 YO female with a past medical history of ESRD on HD, lupus, recurrent chest pain, normal coronaries, HTN. She has been seen by our practice on prior admissions. She presented with c/o generalized body aches and chest pain for about 3 hours prior to reporting to the emergency room. Pt describes her chest pain as an intermittent left-sided pain which is worse with exertion and better with rest. LHC done 02/2018 showed normal coronary arteries. Lexiscan MPI stress test done 02/2019 was negative. tte done 11/17/2019 showed EF 55-60%, mild LVH, "smoke" in LV. OP f/u tte was recommended, although pt did not follow up in our office. Past History Past Medical History: ESRD (On dialysis Tuesdays, and Saturdays.), hypertension, other (Lupus) Past Surgical History: Other (Right arm AV fistula) Social history: no significant social history Family history: no significant family history Medications and Allergies Allergies Allergy/AdvReac Type Severity Reaction Status Date / Time acetaminophen [From Percocet] Allergy Itching Verified 01/20/20 15:43 lisinopril Allergy Swelling Verified 01/20/20 15:43 metoprolol Allergy Unknown Verified 01/20/20 15:43 oxycodone [From Percocet] Allergy Itching Verified 01/20/20 15:43 oxycodone HCl [From Percocet] AdvReac Unknown Verified 01/20/20 15:43 Home Medications Medication Instructions Recorded Confirmed Last Taken Type Clonidine HCl [Catapres] 0.3 mg PO TID #60 tablet 11/27/19 Unknown Rx Epoetin Blair 10,000 Unit [Procrit] 10,000 unit IV ALYSSA PRN vial 11/27/19 Unknown Rx Hydroxychloroquine [Plaquenil] 200 mg PO QDAY #30 tablet 11/27/19 Unknown Rx NIFEdipine XL [Procardia Xl] 60 mg PO Q12HR #60 tablet 11/27/19 Unknown Rx Oxycodone HCl/Acetaminophen 1 each PO Q6HR PRN #24 tablet 11/27/19 Unknown Rx [Percocet 7.5/325 mg] diphenhydrAMINE [Benadryl CAP] 25 mg PO QHS PRN 30 Days #60 11/27/19 Unknown Rx capsule hydrALAZINE [Apresoline TAB] 100 mg PO TID #90 tab 11/27/19 Unknown Rx labetaloL [Labetalol 200mg TAB] 200 mg PO TID #90 tablet 11/27/19 Unknown Rx levETIRAcetam [Keppra TAB] 750 mg PO BID #60 tablet 11/27/19 Unknown Rx levETIRAcetam [Keppra] 750 mg PO BID #60 oral.liqd 11/27/19 Unknown Rx Cyclobenzaprine [Flexeril] 10 mg PO TID PRN #10 tablet 12/25/19 Unknown Rx Ibuprofen [Motrin 800 MG tab] 800 mg PO Q8HR PRN #20 tablet 12/25/19 Unknown Rx HYDROcodone/APAP 5-325 [English 1 each PO Q6HR PRN #10 tablet 01/13/20 Unknown Rx 5-325 mg TAB] Ondansetron [Zofran Odt] 4 mg PO Q8HR PRN #20 tab.rapdis 01/13/20 Unknown Rx Promethazine [Phenergan] 25 mg MD Q6HR PRN #10 supp.rect 01/13/20 Unknown Rx Active Meds: Active Medications Acetaminophen (Tylenol) 650 mg PO Q4H PRN PRN Reason: Pain MILD(1-3)/Fever >100.5/WOLFF Aspirin (Ecotrin) 325 mg PO QDAY FERNANDO Heparin Sodium (Porcine) (Heparin) 5,000 unit SUB-Q Q8HR FERNANDO Last Admin: 01/21/20 05:58 Dose: 5,000 unit Documented by: Nitroglycerin (Nitrostat) 0.4 mg SL Q5M PRN PRN Reason: Chest Pain Last Admin: 01/21/20 09:16 Dose: 0.4 mg Documented by: Ondansetron HCl (Zofran) 4 mg IV Q8H PRN PRN Reason: Nausea And Vomiting Sodium Chloride (Sodium Chloride Flush Syringe 10 Ml) 10 ml IV PRN PRN PRN Reason: LINE FLUSH Sodium Chloride (Sodium Chloride Flush Syringe 10 Ml) 10 ml IV BID FERNANDO Sodium Chloride (Sodium Chloride Flush Syringe 10 Ml) 10 ml IV PRN PRN PRN Reason: LINE FLUSH Review of Systems Constitutional: no weight loss, no weight gain, no fever, no chills, no sweats Ears, nose, mouth and throat: no ear pain, no nose pain, no sinus pressure, no sinus pain Cardiovascular: chest pain, high blood pressure, no orthopnea, no palpitations, no rapid/irregular heart beat, no edema, no syncope, no lightheadedness, no shortness of breath, no dyspnea on exertion Respiratory: no cough, no shortness of breath, no dyspnea on exertion, no congestion, no wheezing, no pain on inspiration Gastrointestinal: no abdominal pain, no nausea, no vomiting, no diarrhea, no constipation, no change in bowel habits Genitourinary Female: no pelvic pain, no flank pain, no dysuria, no urinary frequency, no urgency Musculoskeletal: no neck stiffness, no neck pain, no shooting arm pain, no arm numbness/tingling, no low back pain, no shooting leg pain Integumentary: no rash, no pruritis, no redness, no sores, no wounds Neurological: no head injury, no paralysis, no weakness, no parathesias, no numbness, no tingling, no seizures, no syncope Psychiatric: no anxiety Endocrine: no cold intolerance, no heat intolerance Hematologic/Lymphatic: no easy bruising, no easy bleeding Allergic/Immunologic: no urticaria Physical Examination Vital Signs Temp Pulse Resp BP Pulse Ox 98.6 F 84 18 194/126 99 01/20/20 15:45 01/20/20 15:45 01/20/20 15:45 01/20/20 15:45 01/20/20 15:45 General appearance: no acute distress HEENT: Positive: PERRL, Normocephaly, Mucus Membranes Moist Neck: Positive: neck supple, trachea midline Cardiac: Positive: Reg Rate and Rhythm, S1/S2 Lungs: Positive: clear to auscultation Neuro: Positive: Grossly Intact Abdomen: Negative: Tender Skin: Negative: Rash Musculoskeletal: No Pain Extremities: Absent: edema Results 01/21/20 04:06 01/21/20 04:06 Cardiac Enzymes 01/20/20 Range/Units Unknown AST 13 (5-40) units/L Coagulation 01/21/20 Range/Units 04:06 PT 16.6 H (12.2-14.9) Sec. INR 1.33 H (0.87-1.13) Lipids 01/20/20 Range/Units Unknown Triglycerides 61 (2-149) mg/dL Cholesterol 89 (50-199) mg/dL HDL Cholesterol 40 (40-59) mg/dL Cholesterol/HDL Ratio 2.22 % CBC 01/20/20 01/21/20 Range/Units Unknown 04:06 WBC 3.9 L 5.0 (4.5-11.0) K/mm3 RBC 3.25 L 3.44 L (3.65-5.03) M/mm3 Hgb 9.3 L 9.8 L (10.1-14.3) gm/dl Hct 29.1 L 31.4 (30.3-42.9) % Plt Count 254 270 (140-440) K/mm3 Lymph # 0.4 L 0.8 L (1.2-5.4) K/mm3 Robertson # 0.3 0.4 (0.0-0.8) K/mm3 Eos # 0.1 0.0 (0.0-0.4) K/mm3 Baso # 0.0 0.0 (0.0-0.1) K/mm3 Comprehensive Metabolic Panel 01/20/20 01/21/20 Range/Units Unknown 04:06 Sodium 133 L 134 L (137-145) mmol/L Potassium 4.3 5.2 H D (3.6-5.0) mmol/L Chloride 99.1 98.5 (98-107) mmol/L Carbon Dioxide 23 23 (22-30) mmol/L BUN 9 12 (7-17) mg/dL Creatinine 4.1 H 4.6 H (0.7-1.2) mg/dL Glucose 82 76 (65-100) mg/dL Calcium 8.6 9.1 (8.4-10.2) mg/dL AST 13 (5-40) units/L ALT < 5 L (7-56) units/L Alkaline Phosphatase 119 (35-129) units/L Total Protein 8.5 H (6.3-8.2) g/dL Albumin 3.0 L (3.9-5) g/dL - Imaging and Cardiology Echo: report reviewed (11/17/2019 showed EF 55-60%, mild LVH, "smoke" in LV. OP f /u tte was recommended, although pt did not follow up in our office. ) Cardiac cath: report reviewed (02/2018 showed normal coronary arteries. ) EKG: report reviewed, image reviewed EKG interpretations - Telemetry EKG Rhythm: Sinus Rhythm - EKG Sinus rhythms and dysrhythmias: sinus rhythm Assessment and Plan CE elevation appears c/w NSTEMI type II. ECG with NAF. Lexiscan MPI stress test was attempted, however, pt did not have adequate IV access and IV team was unable to obtain IV. Optimize anti-ischemic regimen. Given resolution of chest pain and history of normal LHC in 02/2018 and negative lexiscan MPI stress test in 02/2019, pt may discharge from cardiology standpoint and can consider stress testing as OP if chest pain reoccurs despite optimal medical therapy. Recommend pt follow up in our office with Dr. Hardin within 2 weeks of discharge ([phone]). The patient has been seen in conjunction with Dr. Hardin who agrees with the assessment and plan of care. - Patient Problems (1) Chest pain Current Visit: Yes Status: Acute Qualifiers: Chest pain type: unspecified Qualified Code(s): R07.9 - Chest pain, unspecified (2) NSTEMI (non-ST elevated myocardial infarction) Current Visit: Yes Status: Acute Plan to address problem: type II (3) ESRD (end stage renal disease) on dialysis Current Visit: Yes Status: Chronic (4) SLE (systemic lupus erythematosus) Current Visit: Yes Status: Chronic Qualifiers: Systemic lupus erythematosus type: unspecified Systemic lupus erythematosus organ involvement: unspecified Qualified Code(s): M32.9 - Systemic lupus erythematosus, unspecified (5) Hypertension Current Visit: Yes Status: Chronic (6) Normal coronary arteries Current Visit: Yes Status: Chronic
[2020-01-21] MEDS ORDERED: ASPIRIN EC 325 MG TAB PO SCH (10:00)
[2020-01-21] MEDS ORDERED: REGADENOSON 0.4 MG/5 ML INJ IV ONE ×2 (10:20→10:34)
--- NOTE | 2020-01-21 10:52 | Discharge Summary ---
Providers - Providers Date of Admission: 01/20/20 21:50 Date of discharge: 01/21/20 Attending physician: CRIS AGUILAR 01/20/20 Consult to Cardiac Rehabilitation [CONS] Routine Reason For Exam: Phase I 01/20/20 22:58 Consult to Cardiology [CONS] Routine Consulting Provider: KATIE MARTINEZ Reason For Exam: chest pain Primary care physician: DIAM[facility] [employer]ER Hospitalization Reason for admission: cp Condition: Critical Hospital course: The patient is a 29 YO female with a past medical history of ESRD on HD, lupus, recurrent chest pain, normal coronaries, HTN who presented with c/o generalized body aches and chest pain for about 3 hours prior to reporting to the emergency room. Pt described her chest pain as an intermittent left-sided pain which is worse with exertion and better with rest. LHC done 02/2018 showed normal coronary arteries. Lexiscan MPI stress test done 02/2019 was negative. Echocardiogram done 11/17/2019 showed EF 55-60%, mild LVH, "smoke" in LV. OP f/u tte was recommended, although pt did not follow up in cardiology office. Cardiology was consulted on the patient and felt that cardiac enzyme elevation appeared to be consistent with NSTEMI type II. ECG with NAF. Cardiology nurse practitioner informed me that attempted stress test but unable to get adequate IV access for study. Cardiology reports that patient can discharge and consider stress test as an outpatient. Patient did have some accelerated hypertension that resolved with resumption of home medications. Patient had no further chest pain is felt to have received maximal hospital benefit for discharge. Dedicated discharge time 35 minutes. Disposition: DC- TO HOME OR SELFCARE Time spent for discharge: 35 Core Measure Documentation - Palliative Care Palliative Care/ Comfort Measures: Not Applicable - Core Measures Any of the following diagnoses?: none Exam - Constitutional Vitals: Temp Pulse Resp BP Pulse Ox 98.6 F 86 17 176/109 100 01/20/20 15:45 01/21/20 09:16 01/21/20 07:06 01/21/20 09:16 01/21/20 07:06 General appearance: Present: no acute distress, well-nourished - EENT Eyes: Present: PERRL ENT: hearing intact, clear oral mucosa - Neck Neck: Present: supple, normal ROM - Respiratory Respiratory effort: normal Respiratory: bilateral: CTA - Cardiovascular Heart Sounds: Present: S1 & S2. Absent: rub, click - Extremities Extremities: pulses symmetrical, No edema Peripheral Pulses: within normal limits - Abdominal General gastrointestinal: Present: soft, non-tender, non-distended, normal bowel sounds Female genitourinary: Present: normal - Integumentary Integumentary: Present: clear, warm, dry - Musculoskeletal Musculoskeletal: gait normal, strength equal bilaterally - Psychiatric Psychiatric: appropriate mood/affect, intact judgment & insight - Neurologic Neurologic: CNII-XII intact, moves all extremities Plan Activity: advance as tolerated Weight Bearing Status: Weight Bear as Tolerated Follow up with: PRIMARY CARE, [Primary Care Provider] - 7 Days
[2020-01-21] MEDS ORDERED: ASPIRIN EC 325 MG TAB PO ONE (11:06)
[2020-01-21] MEDS ORDERED: ONDANSETRON 4 MG ODT TAB PO PRN (11:47)
[2020-01-21] MEDS ORDERED: HYDROcodone/ACETAMINOPHEN 5-325 MG TAB PO PRN (11:47)
[2020-01-21] MEDS ORDERED: EPOETIN ALFA 10,000 UNIT/1 ML INJ IV PRN (11:47)
[2020-01-21] MEDS ORDERED: CYCLOBENZAPRINE 10 MG TAB PO PRN (11:47)
[2020-01-21] MEDS ORDERED: HYDROXYCHLOROQUINE 200 MG TAB PO SCH (12:00)
[2020-01-21] MEDS ORDERED: levETIRAcetam 500 MG TAB PO SCH (12:00)
[2020-01-21] MEDS ORDERED: ONDANSETRON 4 MG/2 ML INJ ONE (12:06)
[2020-01-21] MEDS: ONDANSETRON 4 MG/2 ML INJ IV ONE (12:08)
[2020-01-21] MEDS ORDERED: cloNIDine 0.1 MG TAB ONE (12:51)
[2020-01-21] MEDS ORDERED: cloNIDine 0.2 MG TAB ONE (12:51)
[2020-01-21] MEDS ORDERED: hydrALAZINE 100 MG TAB ONE (12:55)
[2020-01-21] MEDS ORDERED: CYCLOBENZAPRINE 10 MG TAB ONE (13:20)
[2020-01-21] MEDS ORDERED: HYDROcodone/ACETAMINOPHEN 5-325 MG TAB ONE (13:20)
[2020-01-21] MEDS ORDERED: diphenhydrAMINE 25 MG CAP PO ONE (13:28)
[2020-01-21] MEDS ORDERED: NON-FORMULARY EACH (Clonidine Hcl [Catapres] 0.3 MG) PO SCH (14:00)
[2020-01-21] MEDS ORDERED: hydrALAZINE 100 MG TAB PO SCH (14:00)
[2020-01-21] MEDS ORDERED: cloNIDine 0.1 MG TAB PO SCH (14:00)
[2020-01-21 14:46] VITALS: BP 153/102
[2020-01-21] MEDS ORDERED: diphenhydrAMINE 25 MG CAP PO PRN (21:00)
[2020-01-21] MEDS ORDERED: NON-FORMULARY EACH (Levetiracetam [Keppra Tab] 750 MG) PO SCH (22:00)
[2020-01-21] MEDS ORDERED: NIFEdipine XL 60 MG TAB PO SCH (22:00)
[2020-01-22] MEDS ORDERED: NIFEdipine XL 60 MG TAB PO ONE (14:01)
== END 2020-01-21 15:37 | disposition home or self-care (01) ==
LOC: ED 15:22 → 4A 21:50
PROVIDERS: ADMIT Internal Medicine Geriatric Medicine; ATTEND Hospitalist
DX: R07.89 Other chest pain (principal); I21.A1 Myocardial infarction type 2; I13.2 Hypertensive heart and chronic kidney disease with heart failure and with stage 5 chronic kidney disease, or end stage renal disease; I50.9 Heart failure, unspecified; N18.6 End stage renal disease; M32.9 Systemic lupus erythematosus, unspecified; J44.9 Chronic obstructive pulmonary disease, unspecified; M19.90 Unspecified osteoarthritis, unspecified site; G43.909 Migraine, unspecified, not intractable, without status migrainosus; J81.0 Acute pulmonary edema; Z99.2 Dependence on renal dialysis; Z79.899 Other long term (current) drug therapy; Z88.5 Allergy status to narcotic agent; Z88.8 Allergy status to other drugs, medicaments and biological substances
CPT/HCPCS: 36415; 71046; 80048; 80053; 80061; 83880; 84484; 85025; 85610; 93005; 96372; 96374; 96375; 96376; 99291; G0378; J0360; J1100; J1170; J1200; J1644; J2405; J2785

== ENCOUNTER 2020-02-08 11:26 | Observation (INO) | payer MEDICARE ==
[2020-02-08] MEDS ORDERED: ONDANSETRON 4 MG/2 ML INJ IV ONE (11:51)
[2020-02-08] MEDS ORDERED: FAMOTIDINE 20 MG/2 ML INJ IV ONE (11:51)
[2020-02-08] MEDS ORDERED: MORPHINE 4 MG/1 ML INJ IV ONE (11:55)
[2020-02-08] MEDS ORDERED: hydrALAZINE 20 MG/1 ML INJ IV ONE ×2 (12:01→14:07)
--- NOTE | 2020-02-08 12:24 | Emergency Department Report ---
ED General Adult HPI - General Chief complaint: Dyspnea/Respdistress Stated complaint: LUPUS FLARE UP/HBP Time Seen by Provider: 02/08/20 11:44 Source: EMS Mode of arrival: Ambulatory Limitations: No Limitations - History of Present Illness Initial comments: Patient is a 29-year-old F Citizen Of [place] female with a past medical history of end- stage renal disease who is on dialysis as well as hypertension and lupus who is presenting with multiple complaints. Per the patient her complaint is that she has pain in her lower back and bilateral legs that is consistent with a lupus flareup. Patient states pain started last night is a 10 out of 10. States it i s worse with movement better with rest. Patient also states that she has some general soreness to the abdomen as she had 2-3 episodes of nausea vomiting last night. Nausea is improved this morning but she states her abdomen is sore. Patient believes that her nausea vomiting secondary to eating a sandwich which contained mayonnaise. Patient was sent to the emergency department by her dialysis center because her blood pressure was elevated to arrange that was unsafe for hemodialysis. Patient states she has some shortness of breath but denies chest pain. She denies any focal neurological deficits. Patient states that her shortness of breath is likely secondary to needing dialysis. Patient is last dialysis was 3 days ago at its normal schedule time. Severity scale (0 -10): 6 - Related Data Home Medications Medication Instructions Recorded Confirmed Last Taken Furosemide [Lasix TAB] 80 mg PO ONCE 01/21/20 01/21/20 1 Day Ago ~01/20/20 Furosemide [Lasix TAB] 80 mg PO ONCE 01/21/20 01/21/20 1 Day Ago ~01/20/20 Phenytoin [Dilantin] 100 mg PO Q8HR 01/21/20 01/21/20 1 Day Ago ~01/20/20 levETIRAcetam [Keppra TAB] 500 mg PO BID 01/21/20 01/21/20 Unknown Previous Rx's Medication Instructions Recorded Last Taken Type Clonidine HCl [Catapres] 0.3 mg PO TID #60 tablet 11/27/19 1 Day Ago Rx ~01/20/20 Epoetin Blair 10,000 Unit [Procrit] 10,000 unit IV ALYSSA PRN vial 11/27/19 Unknown Rx Hydroxychloroquine [Plaquenil] 200 mg PO QDAY #30 tablet 11/27/19 Unknown Rx NIFEdipine XL [Procardia Xl] 60 mg PO Q12HR #60 tablet 11/27/19 Unknown Rx Oxycodone HCl/Acetaminophen 1 each PO Q6HR PRN #24 tablet 11/27/19 Unknown Rx [Percocet 7.5/325 mg] diphenhydrAMINE [Benadryl CAP] 25 mg PO QHS PRN 30 Days #60 11/27/19 Unknown Rx capsule hydrALAZINE [Apresoline TAB] 100 mg PO TID #90 tab 11/27/19 Unknown Rx labetaloL [Labetalol 200mg TAB] 200 mg PO TID #90 tablet 11/27/19 Unknown Rx levETIRAcetam [Keppra TAB] 750 mg PO BID #60 tablet 11/27/19 Unknown Rx levETIRAcetam [Keppra] 750 mg PO BID #60 oral.liqd 11/27/19 Unknown Rx Cyclobenzaprine [Flexeril] 10 mg PO TID PRN #10 tablet 12/25/19 Unknown Rx Ibuprofen [Motrin 800 MG tab] 800 mg PO Q8HR PRN #20 tablet 12/25/19 Unknown Rx HYDROcodone/APAP 5-325 [[place] 1 each PO Q6HR PRN #10 tablet 01/13/20 Unknown Rx 5-325 mg TAB] Ondansetron [Zofran Odt] 4 mg PO Q8HR PRN #20 tab.rapdis 01/13/20 Unknown Rx Promethazine [Phenergan] 25 mg PA Q6HR PRN #10 supp.rect 01/13/20 Unknown Rx Allergies Allergy/AdvReac Type Severity Reaction Status Date / Time acetaminophen [From Percocet] Allergy Itching Verified 01/20/20 15:43 lisinopril Allergy Swelling Verified 01/20/20 15:43 metoprolol Allergy Unknown Verified 01/20/20 15:43 oxycodone [From Percocet] Allergy Itching Verified 01/20/20 15:43 oxycodone HCl [From Percocet] AdvReac Unknown Verified 01/20/20 15:43 ED Review of Systems ROS: Stated complaint: LUPUS FLARE UP/HBP Other details as noted in HPI Comment: All other systems reviewed and negative ED Past Medical Hx - Past Medical History Previous Medical History?: Yes Hx Hypertension: Yes Hx Congestive Heart Failure: Yes Hx Diabetes: Yes Hx Renal Disease: Yes (HD T,THUR,SAT) Hx Arthritis: Yes Hx Headaches / Migraines: Yes Hx Seizures: Yes Hx Asthma: Yes Hx COPD: Yes Hx HIV: No Additional medical history: Lupus - Surgical History Past Surgical History?: Yes Additional Surgical History: RIGHT ARM graft - Social History Smoking Status: Former Smoker Substance Use Type: None - Medications Home Medications: Home Medications Medication Instructions Recorded Confirmed Last Taken Type Clonidine HCl [Catapres] 0.3 mg PO TID #60 tablet 11/27/19 01/21/20 1 Day Ago Rx ~01/20/20 Epoetin Blair 10,000 Unit [Procrit] 10,000 unit IV ALYSSA PRN vial 11/27/19 Unknown Rx Hydroxychloroquine [Plaquenil] 200 mg PO QDAY #30 tablet 11/27/19 Unknown Rx NIFEdipine XL [Procardia Xl] 60 mg PO Q12HR #60 tablet 11/27/19 Unknown Rx Oxycodone HCl/Acetaminophen 1 each PO Q6HR PRN #24 tablet 11/27/19 Unknown Rx [Percocet 7.5/325 mg] diphenhydrAMINE [Benadryl CAP] 25 mg PO QHS PRN 30 Days #60 11/27/19 Unknown Rx capsule hydrALAZINE [Apresoline TAB] 100 mg PO TID #90 tab 11/27/19 Unknown Rx labetaloL [Labetalol 200mg TAB] 200 mg PO TID #90 tablet 11/27/19 01/21/20 Unknown Rx levETIRAcetam [Keppra TAB] 750 mg PO BID #60 tablet 11/27/19 Unknown Rx levETIRAcetam [Keppra] 750 mg PO BID #60 oral.liqd 11/27/19 Unknown Rx Cyclobenzaprine [Flexeril] 10 mg PO TID PRN #10 tablet 12/25/19 Unknown Rx Ibuprofen [Motrin 800 MG tab] 800 mg PO Q8HR PRN #20 tablet 12/25/19 Unknown Rx HYDROcodone/APAP 5-325 [[place] 1 each PO Q6HR PRN #10 tablet 01/13/20 Unknown Rx 5-325 mg TAB] Ondansetron [Zofran Odt] 4 mg PO Q8HR PRN #20 tab.rapdis 01/13/20 Unknown Rx Promethazine [Phenergan] 25 mg PA Q6HR PRN #10 supp.rect 01/13/20 Unknown Rx Furosemide [Lasix TAB] 80 mg PO ONCE 01/21/20 01/21/20 1 Day Ago History ~01/20/20 Furosemide [Lasix TAB] 80 mg PO ONCE 01/21/20 01/21/20 1 Day Ago History ~01/20/20 Phenytoin [Dilantin] 100 mg PO Q8HR 01/21/20 01/21/20 1 Day Ago History ~01/20/20 levETIRAcetam [Keppra TAB] 500 mg PO BID 01/21/20 01/21/20 Unknown History ED Physical Exam - General Limitations: No Limitations General appearance: alert, in no apparent distress - Head Head exam: Present: atraumatic, normocephalic - Eye Eye exam: Present: normal appearance, PERRL, EOMI - ENT ENT exam: Present: mucous membranes moist - Neck Neck exam: Present: normal inspection - Respiratory Respiratory exam: Present: normal lung sounds bilaterally. Absent: respiratory distress, wheezes, rales, rhonchi - Cardiovascular Cardiovascular Exam: Present: regular rate, normal rhythm. Absent: systolic murmur, diastolic murmur, rubs, gallop - GI/Abdominal GI/Abdominal exam: Present: soft, normal bowel sounds. Absent: distended, tenderness, guarding - Extremities Exam Extremities exam: Present: normal inspection - Back Exam Back exam: Present: normal inspection - Neurological Exam Neurological exam: Present: alert, oriented X3 - Psychiatric Psychiatric exam: Present: normal affect, normal mood - Skin Skin exam: Present: warm, dry, intact, normal color. Absent: rash ED Course Vital Signs 02/08/20 02/08/20 11:49 13:00 Temperature 98.1 F Pulse Rate 99 H 101 H Respiratory 18 Rate Blood Pressure 256/132 197/129 Blood Pressure 256/132 [Right] O2 Sat by Pulse 100 Oximetry ED Medical Decision Making - Lab Data Result diagrams: 02/08/20 12:23 02/08/20 12:23 - Radiology Data Ordering Physician: SURY NAIR MD Date of Service: 02/08/20 Procedure(s): XR chest 1V ap Accession Number(s): [id number] cc: SURY NAIR MD Fluoro Time In Minutes: CHEST 1 VIEW INDICATION: dyspnea. COMPARISON: 01/20/2020. FINDINGS: Support devices: None. Heart: Stable cardiomegaly. Lungs/Pleura: Vascular congestion and basilar scarring left greater than right remain. No new infiltrate. Additional findings: None. IMPRESSION: Stable chest. Signer Name: Franc Browne MD Signed: 02/08/2020 12:54 PM Workstation Name: [email or web address] - Medical Decision Making Patient is a 29-year-old F Citizen Of [place] female who is presenting with elevated blood pressure and was unable to get dialysis. Review of the patient's laboratory studies her BUN/creatinine have significantly increased in the last 2 weeks. Her potassium is normal at this time. Patient will need dialysis today. Patient will needs further blood pressure management. Patient's blood pressure is in the 190s at the time of disposition however she will need further blood pressure management in order to undergo dialysis. Patient will be admitted for observation. Critical care attestation.: If time is entered above; I have spent that time in minutes in the direct care of this critically ill patient, excluding procedure time. ED Disposition Clinical Impression: ESRD (end stage renal disease), Lupus (systemic lupus erythematosus), SOB (shortness of breath), Hypertensive urgency, malignant Disposition: 09 OP ADMIT IP TO THIS HOSP Is pt being admited?: Yes Does the pt Need Aspirin: No Condition: Stable Referrals: PRIMARY CARE, [Primary Care Provider] - 3-5 Days Time of Disposition: 14:15
--- NOTE | 2020-02-08 12:59 | XRay Report ---
CHEST 1 VIEW INDICATION: dyspnea. COMPARISON: 01/20/2020. FINDINGS: Support devices: None. Heart: Stable cardiomegaly. Lungs/Pleura: Vascular congestion and basilar scarring left greater than right remain. No new infiltr ate. Additional findings: None. IMPRESSION: Stable chest. Signer Name: Franc Browne MD Signed: 02/08/2020 12:54 PM Workstation Name: [id number]
[2020-02-08 13:11] LABS: Calcium 8.5 mg/dL (8.4-10.2)
[2020-02-08 13:23] LABS: Basophils % (Auto) 0.5 % (0.0-1.8); Eosinophils # (Auto) 0.2 K/mm3 (0.0-0.4); Eosinophils % (Auto) 3.6 % (0.0-4.3); Hematocrit 29.2 % (30.3-42.9); Hemoglobin 9.5 gm/dl (10.1-14.3); Lymphocytes % (Auto) 19.1 % (13.4-35.0); Mean Corpuscular HGB Conc 32 % (30-34); Mean Corpuscular Volume 90 fl (79-97); Monocytes # (Auto) 0.6 K/mm3 (0.0-0.8); Monocytes % (Auto) 12.4 % (0.0-7.3); Platelet Count 181 K/mm3 (140-440); Red Blood Count 3.24 M/mm3 (3.65-5.03); Red Cell Distribution Width 19.3 % (13.2-15.2)
[2020-02-08] MEDS ORDERED: diphenhydrAMINE 50 MG/ML VIAL IV ONE (13:53)
[2020-02-08] MEDS ORDERED: SODIUM CHLORIDE 0.9% 100 ML IV PRN (14:30)
[2020-02-08] MEDS ORDERED: KETOROLAC 30 MG/1 ML INJ IV ONE (15:07)
--- NOTE | 2020-02-08 15:21 | Consultation ---
History of Present Illness - Reason for Consult end stage renal disease Requesting physician: SURY NAIR - History of Present Illness Patient is a 29-year-old F [place] female with a past medical history of end- stage renal disease who is on dialysis as well as hypertension and lupus who is presenting with multiple complaints. Per the patient her complaint is that she has pain in her lower back and bilateral legs that is consistent with a lupus flareup. Patient states pain started last night is a 10 out of 10. States it is worse with movement better with rest. Patient also states that she has some general soreness to the abdomen as she had 2-3 episodes of nausea vomiting last night. Nausea is improved this morning but she states her abdomen is sore. Patient believes that her nausea vomiting secondary to eating a sandwich which contained mayonnaise. Patient was sent to the emergency department by her dialysis center because her blood pressure was elevated to arrange that was unsafe for hemodialysis. Patient states she has some shortness of breath but denies chest pain. She denies any focal neurological deficits. Patient states that her shortness of breath is likely secondary to needing dialysis. Patient is last dialysis was 3 days ago at its normal schedule time. Past History Past Medical History: dialysis, hypertension, other (Lupus and depression) Past Surgical History: Other (History of creation of AV fistula) Social history: no significant social history Family history: no significant family history Medications and Allergies Allergies Allergy/AdvReac Type Severity Reaction Status Date / Time acetaminophen [From Percocet] Allergy Itching Verified 01/20/20 15:43 lisinopril Allergy Swelling Verified 01/20/20 15:43 metoprolol Allergy Unknown Verified 01/20/20 15:43 oxycodone [From Percocet] Allergy Itching Verified 01/20/20 15:43 oxycodone HCl [From Percocet] AdvReac Unknown Verified 01/20/20 15:43 Home Medications Medication Instructions Recorded Confirmed Last Taken Type Clonidine HCl [Catapres] 0.3 mg PO TID #60 tablet 11/27/19 01/21/20 1 Day Ago Rx ~01/20/20 Epoetin Blair 10,000 Unit [Procrit] 10,000 unit IV ALYSSA PRN vial 11/27/19 Unknown Rx Hydroxychloroquine [Plaquenil] 200 mg PO QDAY #30 tablet 11/27/19 Unknown Rx NIFEdipine XL [Procardia Xl] 60 mg PO Q12HR #60 tablet 11/27/19 Unknown Rx Oxycodone HCl/Acetaminophen 1 each PO Q6HR PRN #24 tablet 11/27/19 Unknown Rx [Percocet 7.5/325 mg] diphenhydrAMINE [Benadryl CAP] 25 mg PO QHS PRN 30 Days #60 11/27/19 Unknown Rx capsule hydrALAZINE [Apresoline TAB] 100 mg PO TID #90 tab 11/27/19 Unknown Rx labetaloL [Labetalol 200mg TAB] 200 mg PO TID #90 tablet 11/27/19 01/21/20 Unknown Rx levETIRAcetam [Keppra TAB] 750 mg PO BID #60 tablet 11/27/19 Unknown Rx levETIRAcetam [Keppra] 750 mg PO BID #60 oral.liqd 11/27/19 Unknown Rx Cyclobenzaprine [Flexeril] 10 mg PO TID PRN #10 tablet 12/25/19 Unknown Rx Ibuprofen [Motrin 800 MG tab] 800 mg PO Q8HR PRN #20 tablet 12/25/19 Unknown Rx HYDROcodone/APAP 5-325 [[place] 1 each PO Q6HR PRN #10 tablet 01/13/20 Unknown Rx 5-325 mg TAB] Ondansetron [Zofran Odt] 4 mg PO Q8HR PRN #20 tab.rapdis 01/13/20 Unknown Rx Promethazine [Phenergan] 25 mg [place] Q6HR PRN #10 supp.rect 01/13/20 Unknown Rx Furosemide [Lasix TAB] 80 mg PO ONCE 01/21/20 01/21/20 1 Day Ago History ~01/20/20 Furosemide [Lasix TAB] 80 mg PO ONCE 01/21/20 01/21/20 1 Day Ago History ~01/20/20 Phenytoin [Dilantin] 100 mg PO Q8HR 01/21/20 01/21/20 1 Day Ago History ~01/20/20 levETIRAcetam [Keppra TAB] 500 mg PO BID 01/21/20 01/21/20 Unknown History Active Meds: Active Medications Sodium Chloride (Nacl 0.9%) 100 mls @ 999 mls/hr IV ALYSSA PRN PRN Reason: Hypotension Review of Systems All systems: negative (Negative except as noted above) Exam - Vital Signs Vital signs: Vital Signs Temp Pulse Resp BP Pulse Ox 98.2 F 68 188 H 256/132 100 02/08/20 11:49 02/08/20 11:49 02/08/20 11:49 02/08/20 11:49 02/08/20 11:49 - General Appearance General appearance: well-developed, well-nourished, appears stated age EENT: PERRL, mucous membranes moist Neck: Present: neck supple, trachea midline. Absent: JVD/HJR, Masses Respiratory: Clear to Ascultation Heart: regular, normal heart rate Gastrointestinal: Present: normal, normoactive bowel sounds Integumentary: no rash, other (No edema. AV fistula in her right upper arm. Good bruit and thrill.) Results - Lab Results 02/08/20 12:23 02/08/20 12:23 Most recent lab results Calcium 8.5 mg/dL (8.4-10.2) 02/08/20 12:23 Assessment and Plan Impression * End-stage renal disease on maintenance hemodialysis * uncontrolled hypertension * Seizure disorder * Lupus * Anemia secondary to ESRD * Metabolic acidosis * Depression Recommendations * Arrange for hemodialysis treatment for today. * Adjust antihypertensive medication. Suspect noncompliance with her medication regimen * Remove fluid as tolerated with dialysis * Avoid nephrotoxins * Monitor fluid status and electrolytes closely * Adjust diet and meds for ESRD state * No IV, BP or venipuncture in her access arm * Continue dialysis on TTS schedule as outpatient * Thank you very much for the consultation. Shall follow along with you
[2020-02-08] MEDS ORDERED: SODIUM CHLORIDE 0.9% 1000 ML 2,000 ML ONE (15:49)
[2020-02-08 16:03] LABS: Hepatitis B Surface Antigen Non-Reactive (Negative); Hepatitis C Virus Antibody Non-Reactive (NonReactive)
[2020-02-08] MEDS ORDERED: diphenhydrAMINE 25 MG CAP PO PRN (18:19)
[2020-02-08] MEDS ORDERED: CYCLOBENZAPRINE 10 MG TAB PO PRN (18:19)
[2020-02-08] MEDS ORDERED: IBUPROFEN 800 MG TAB PO PRN (18:19)
[2020-02-08] MEDS ORDERED: PROMETHAZINE 25 MG RECT SUPP PR PRN (18:26)
[2020-02-08] MEDS ORDERED: NON-FORMULARY EACH (Oxycodone Hcl/Acetaminophen [Percocet 7.5/325 Mg] 1 EACH) PO PRN (18:26)
[2020-02-08] MEDS ORDERED: ACETAMINOPHEN 325 MG TAB PO PRN (18:29)
[2020-02-08] MEDS ORDERED: ONDANSETRON 4 MG/2 ML INJ IV PRN (18:29)
--- NOTE | 2020-02-08 18:42 | History and Physical Report ---
History of Present Illness Date of examination: 02/08/20 Date of admission: 02/08/20 14:16 Chief complaint: High blood pressure History of present illness: 29-year old -[place] female with history of end-stage renal disease hypertension and lupus and seizure disorder. Patient comes in for nausea vomiting for 2-3 times over the last 12hours. Also headache. Patient was sent to the emergency room from the dialysis center because of a hive blood pressure of about 230/130. They did not do the dialysis. No fever or chills. Patient noncompliant with blood pressure medications. Does not take clonidine regularly which causes rebound hypertension. No chest pain. No shortness of breath. No fever. No recent exposure to coron - Past Medical History Previous Medical History?: Yes Hx Hypertension: Yes Hx Congestive Heart Failure: Yes Hx Diabetes: Yes Hx Renal Disease: Yes (HD T,THUR,SAT) Hx Arthritis: Yes Hx Headaches / Migraines: Yes Hx Seizures: Yes Hx Asthma: Yes Hx COPD: Yes Additional medical history: Lupus - Surgical History Past Surgical History?: Yes Additional Surgical History: RIGHT ARM graft - Social History Smoking Status: Former Smoker Substance Use Type: None - Medications Home Medications: Home Medications Medication Instructions Recorded Confirmed Last Taken Type Clonidine HCl [Catapres] 0.3 mg PO TID #60 tablet 11/27/19 01/21/20 1 Day Ago Rx ~01/20/20 Epoetin Blair 10,000 Unit [Procrit] 10,000 unit IV ALYSSA PRN vial 11/27/19 Unkno wn Rx Hydroxychloroquine [Plaquenil] 200 mg PO QDAY #30 tablet 11/27/19 Unknown Rx NIFEdipine XL [Procardia Xl] 60 mg PO Q12HR #60 tablet 11/27/19 Unknown Rx Oxycodone HCl/Acetaminophen 1 each PO Q6HR PRN #24 tablet 11/27/19 Unknown Rx [Percocet 7.5/325 mg] diphenhydrAMINE [Benadryl CAP] 25 mg PO QHS PRN 30 Days #60 11/27/19 Unknown Rx capsule hydrALAZINE [Apresoline TAB] 100 mg PO TID #90 tab 11/27/19 Unknown Rx labetaloL [Labetalol 200mg TAB] 200 mg PO TID #90 tablet 11/27/19 01/21/20 Unknown Rx levETIRAcetam [Keppra TAB] 750 mg PO BID #60 tablet 11/27/19 Unknown Rx levETIRAcetam [Keppra] 750 mg PO BID #60 oral.liqd 11/27/19 Unknown Rx Cyclobenzaprine [Flexeril] 10 mg PO TID PRN #10 tablet 12/25/19 Unknown Rx Ibuprofen [Motrin 800 MG tab] 800 mg PO Q8HR PRN #20 tablet 12/25/19 Unknown Rx HYDROcodone/APAP 5-325 [[place] 1 each PO Q6HR PRN #10 tablet 01/13/20 Unknown Rx 5-325 mg TAB] Ondansetron [Zofran Odt] 4 mg PO Q8HR PRN #20 tab.rapdis 01/13/20 Unknown Rx Promethazine [Phenergan] 25 mg NM Q6HR PRN #10 supp.rect 01/13/20 Unknown Rx Furosemide [Lasix TAB] 80 mg PO ONCE 01/21/20 01/21/20 1 Day Ago History ~01/20/20 Furosemide [Lasix TAB] 80 mg PO ONCE 01/21/20 01/21/20 1 Day Ago History ~01/20/20 Phenytoin [Dilantin] 100 mg PO Q8HR 01/21/20 01/21/20 1 Day Ago History ~01/20/20 levETIRAcetam [Keppra TAB] 500 mg PO BID 01/21/20 01/21/20 Unknown History Review of systems: Constitutional no weight loss or weight gain no fever or chills HEENT no sore throat no post nasal drip no diplopia headache present. Neck no neck stiffness no lymph gland enlargement Chest and lungs no shortness of breath cough or wheezing CVS no chest pain no diaphoresis no palpitations GI nausea and vomiting 3-4 times Genitourinary system no dysuria no flank pain Musculoskeletal system no muscle pains no joint pains RN PACU no syncope no seizures Skin no rash no itching Psychiatric no depression no homicidal or suicidal tendencies Hematologic no lymphedema or bruising Endocrine no polydipsia no polyuria no cold intolerance no heat intolerance Past History Past Medical History: dialysis, hypertension, other (Lupus and depression) Past Surgical History: Other (History of creation of AV fistula) Social history: no significant social history Family history: no significant family history Medications and Allergies Allergies Allergy/AdvReac Type Severity Reaction Status Date / Time lisinopril Allergy Swelling Verified 01/20/20 15:43 metoprolol Allergy Unknown Verified 01/20/20 15:43 acetaminophen [From Percocet] AdvReac Itching Verified 02/09/20 07:21 oxycodone [From Percocet] AdvReac Itching Verified 02/09/20 07:22 oxycodone HCl [From Percocet] AdvReac Unknown Verified 01/20/20 15:43 Home Medications Medication Instructions Recorded Confirmed Last Taken Type Clonidine HCl [Catapres] 0.3 mg PO TID #60 tablet 11/27/19 01/21/20 1 Day Ago Rx ~01/20/20 Epoetin Blair 10,000 Unit [Procrit] 10,000 unit IV ALYSSA PRN vial 11/27/19 Unknown Rx Hydroxychloroquine [Plaquenil] 200 mg PO QDAY #30 tablet 11/27/19 Unknown Rx NIFEdipine XL [Procardia Xl] 60 mg PO Q12HR #60 tablet 11/27/19 Unknown Rx Oxycodone HCl/Acetaminophen 1 each PO Q6HR PRN #24 tablet 11/27/19 Unknown Rx [Percocet 7.5/325 mg] diphenhydrAMINE [Benadryl CAP] 25 mg PO QHS PRN 30 Days #60 11/27/19 Unknown Rx capsule hydrALAZINE [Apresoline TAB] 100 mg PO TID #90 tab 11/27/19 Unknown Rx labetaloL [Labetalol 200mg TAB] 200 mg PO TID #90 tablet 11/27/19 01/21/20 Unknown Rx levETIRAcetam [Keppra TAB] 750 mg PO BID #60 tablet 11/27/19 Unknown Rx levETIRAcetam [Keppra] 750 mg PO BID #60 oral.liqd 11/27/19 Unknown Rx Cyclobenzaprine [Flexeril] 10 mg PO TID PRN #10 tablet 12/25/19 Unknown Rx Ibuprofen [Motrin 800 MG tab] 800 mg PO Q8HR PRN #20 tablet 12/25/19 Unknown Rx HYDROcodone/APAP 5-325 [[place] 1 each PO Q6HR PRN #10 tablet 01/13/20 Unknown Rx 5-325 mg TAB] Ondansetron [Zofran Odt] 4 mg PO Q8HR PRN #20 tab.rapdis 01/13/20 Unknown Rx Promethazine [Phenergan] 25 mg NM Q6HR PRN #10 supp.rect 01/13/20 Unknown Rx Furosemide [Lasix TAB] 80 mg PO ONCE 01/21/20 01/21/20 1 Day Ago History ~01/20/20 Furosemide [Lasix TAB] 80 mg PO ONCE 01/21/20 01/21/20 1 Day Ago History ~01/20/20 Phenytoin [Dilantin] 100 mg PO Q8HR 01/21/20 01/21/20 1 Day Ago History ~01/20/20 levETIRAcetam [Keppra TAB] 500 mg PO BID 01/21/20 01/21/20 Unknown History Active Meds: Active Medications Acetaminophen (Tylenol) 650 mg PO Q4H PRN PRN Reason: Pain MILD(1-3)/Fever >100.5/WOLFF Clonidine HCl (Catapres) 0.3 mg PO Q8HR FERNANDO Cyclobenzaprine HCl (Flexeril) 10 mg PO TID PRN PRN Reason: Muscle Spasm Diphenhydramine HCl (Benadryl) 25 mg PO QHS PRN PRN Reason: Anxiety Hydralazine HCl (Apresoline) 100 mg PO TID FERNANDO Hydromorphone HCl (Dilaudid) 0.5 mg IV Q3H PRN PRN Reason: Pain , Severe (7-10) Hydroxychloroquine Sulfate (Plaquenil) 200 mg PO QDAY FERNANDO Sodium Chloride (Nacl 0.9%) 100 mls @ 999 mls/hr IV ALYSSA PRN PRN Reason: Hypotension Ibuprofen (Ibuprofen) 800 mg PO Q8HR PRN PRN Reason: Pain, Moderate (4-6) Labetalol HCl (Labetalol) 200 mg PO TID FERNANDO Levetiracetam (Keppra) 750 mg PO BID FERNANDO Miscellaneous Medication (Oxycodone Hcl/Acetaminophen [Percocet 7.5/325 Mg]) 1 each PO Q6HR PRN PRN Reason: PAIN Nifedipine (Procardia Xl) 60 mg PO Q12HR FERNANDO Ondansetron HCl (Zofran) 4 mg IV Q8H PRN PRN Reason: Nausea And Vomiting Promethazine HCl (Phenergan) 25 mg NM Q6HR PRN PRN Reason: Nausea And Vomiting Sodium Chloride (Sodium Chloride Flush Syringe 10 Ml) 10 ml IV BID FERNANDO Sodium Chloride (Sodium Chloride Flush Syringe 10 Ml) 10 ml IV PRN PRN PRN Reason: LINE FLUSH Exam - Constitutional Vitals: Temp Pulse Resp BP Pulse Ox 98.1 F 107 H 18 146/105 99 02/08/20 15:45 02/08/20 18:00 02/08/20 15:45 02/08/20 18:00 02/08/20 15:01 General appearance: Present: no acute distress, well-nourished - EENT Eyes: Present: PERRL ENT: hearing intact, clear oral mucosa - Neck Neck: Present: supple, normal ROM - Respiratory Respiratory effort: normal Respiratory: bilateral: CTA - Cardiovascular Heart rate: 77 Rhythm: regular Heart Sounds: Present: S1 & S2. Absent: rub, click - Extremities Extremities: no ischemia, pulses intact, pulses symmetrical, No edema Peripheral Pulses: within normal limits - Abdominal General gastrointestinal: Present: soft, non-tender, non-distended, normal bowel sounds Female genitourinary: Present: normal - Rectal Rectal Exam: deferred - Integumentary Integumentary: Present: clear, warm, dry - Musculoskeletal Musculoskeletal: gait normal, strength equal bilaterally - Psychiatric Psychiatric: appropriate mood/affect, intact judgment & insight - Neurologic Neurologic: CNII-XII intact, moves all extremities - Allied Health Allied health notes reviewed: nursing, case management Results - Labs CBC & Chem 7: 02/08/20 12:23 02/08/20 12:23 Labs: Laboratory Last Values WBC 5.0 K/mm3 (4.5-11.0) 02/08/20 12:23 RBC 3.24 M/mm3 (3.65-5.03) L 02/08/20 12:23 Hgb 9.5 gm/dl (10.1-14.3) L 02/08/20 12:23 Hct 29.2 % (30.3-42.9) L 02/08/20 12:23 MCV 90 fl (79-97) 02/08/20 12:23 MCH 29 pg (28-32) 02/08/20 12:23 MCHC 32 % (30-34) 02/08/20 12:23 RDW 19.3 % (13.2-15.2) H 02/08/20 12:23 Plt Count 181 K/mm3 (140-440) 02/08/20 12:23 Lymph % (Auto) 19.1 % (13.4-35.0) 02/08/20 12:23 [place]cd[place] % (Auto) 12.4 % (0.0-7.3) H 02/08/20 12:23 Eos % (Auto) 3.6 % (0.0-4.3) 02/08/20 12:23 Baso % (Auto) 0.5 % (0.0-1.8) 02/08/20 12:23 Lymph # 1.0 K/mm3 (1.2-5.4) L 02/08/20 12:23 [place] # 0.6 K/mm3 (0.0-0.8) 02/08/20 12:23 Eos # 0.2 K/mm3 (0.0-0.4) 02/08/20 12:23 Baso # 0.0 K/mm3 (0.0-0.1) 02/08/20 12:23 Seg Neutrophils % 64.4 % (40.0-70.0) 02/08/20 12:23 Seg Neutrophils # 3.2 K/mm3 (1.8-7.7) 02/08/20 12:23 Sodium 134 mmol/L (137-145) L 02/08/20 12:23 Potassium 4.7 mmol/L (3.6-5.0) 02/08/20 12:23 Chloride 96.7 mmol/L (98-107) L 02/08/20 12:23 Carbon Dioxide 18 mmol/L (22-30) L 02/08/20 12:23 Anion Gap 24 mmol/L 02/08/20 12:23 BUN 55 mg/dL (7-17) H 02/08/20 12:23 Creatinine 10.9 mg/dL (0.7-1.2) H 02/08/20 12:23 Estimated GFR 5 ml/min 02/08/20 12:23 BUN/Creatinine Ratio 5 % 02/08/20 12:23 Glucose 81 mg/dL (65-100) 02/08/20 12:23 Calcium 8.5 mg/dL (8.4-10.2) 02/08/20 12:23 Hepatitis A IgM Ab Non-reactive (NonReactive) 02/08/20 14:49 Hep Bs Antigen Non-reactive (Negative) 02/08/20 14:49 Hep B Core IgM Ab Non-reactive (NonReactive) 02/08/20 14:49 Hepatitis C Antibody Non-reactive (NonReactive) 02/08/20 14:49 - Imaging and Cardiology EKG: report reviewed Hdoge/IV: IV Catheter Type [Left Chest] INT / Saline Lock Assessment and Plan Assessment and plan: The high probability OF a clinically significant sudden or life-threatening deterioration of the cardiorespiratory system and endocrine system required my full and direct attention, intervention and postoperative management. The aggregate critical care time was 40 minutes. The time is in addition to time spent performing reported procedures but includes the followin: Data review and interpretation 2: Patient assessment and monitoring of vital signs 3: Documentation 4:: Medication orders and management Advance Directives: Yes (Full code) - Patient Problems (1) Hypertensive urgency, malignant Current Visit: Yes Status: Acute Plan to address problem: Patient started on hydralazine milligrams 3 times a day Hydralazine 10 mg every 3 as needed for systolic more than 160 and diastolic more than 100 (2) End stage renal disease Current Visit: Yes Status: Chronic Plan to address problem: Continue dialysis as per scheduled (3) Seizure disorder Current Visit: Yes Status: Chronic Plan to address problem: Continue antiepileptic drugs (4) SLE (systemic lupus erythematosus) Current Visit: Yes Status: Chronic Qualifiers: Systemic lupus erythematosus type: unspecified Plan to address problem: Continue Plaquenil (5) Anemia Current Visit: Yes Status: Chronic Qualifiers: Anemia type: unspecified type Qualified Code(s): D64.9 - Anemia, unspecified Plan to address problem: Continue Epogen as per schedule (6) DVT prophylaxis Current Visit: Yes Status: Acute Plan to address problem: SCDs and GI prophylaxis
[2020-02-08] MEDS ORDERED: hydrALAZINE 20 MG/1 ML INJ IV PRN (18:44)
[2020-02-08] MEDS ORDERED: NON-FORMULARY EACH (Clonidine Hcl [Catapres] 0.3 MG) PO SCH (20:00)
[2020-02-08] MEDS: hydrALAZINE 100 MG TAB PO SCH (21:34)
[2020-02-08] MEDS ORDERED: cloNIDine 0.1 MG TAB PO SCH (22:00)
[2020-02-09] MEDS: levETIRAcetam 500 MG/5 ML ORAL LIQD PO SCH ×2 (00:11→09:07)
[2020-02-09] MEDS: NIFEdipine XL 60 MG TAB PO SCH ×2 (00:12→09:10)
[2020-02-09] MEDS: HYDROXYCHLOROQUINE 200 MG TAB PO SCH ×2 (00:13→09:10)
[2020-02-09] MEDS: HYDROmorphone 1 MG/1 ML INJ IV PRN ×5 (00:14→13:08)
[2020-02-09] MEDS ORDERED: cloNIDine 0.1 MG TAB PO SCH (06:00)
[2020-02-09] MEDS ORDERED: cloNIDine 0.2 MG TAB PO SCH (06:00)
[2020-02-09] MEDS: cloNIDine 0.1 MG TAB PO SCH ×2 (06:21→14:05)
[2020-02-09] MEDS: cloNIDine 0.2 MG TAB PO SCH ×2 (06:21→14:01)
[2020-02-09] MEDS: hydrALAZINE 100 MG TAB PO SCH ×2 (07:31→14:02)
[2020-02-09] MEDS: diphenhydrAMINE 50 MG/ML VIAL IV PRN ×2 (09:02→15:48)
--- NOTE | 2020-02-09 10:13 | Progress Note ---
Assessment and Plan Impression * End-stage renal disease on maintenance hemodialysis * uncontrolled hypertension * Seizure disorder * Lupus * Anemia secondary to ESRD * Metabolic acidosis * Depression Recommendations * Patient had uneventful hemodialysis yesterday. Continue dialysis on TTS schedule as outpatient. * Adjust antihypertensive medication. Blood pressure is much better controlled this morning. Suspect noncompliance with her medication regimen * Avoid nephrotoxins * Monitor fluid status and electrolytes closely * Adjust diet and meds for ESRD state * No IV, BP or venipuncture in her access arm * Continue antiseizure meds and medications for her lupus. * Epogen with dialysis * Binders with meals Subjective Date of service: 02/09/20 Interval history: Patient is comfortable today. Complains of aches and pains in her body. Denies any shortness of breath. Currently not on any IV drips Objective - Vital Signs Vital signs: Vital Signs - 12hr 02/08/20 02/09/20 02/09/20 23:50 00:12 05:03 Temperature 98.3 F Pulse Rate 93 H 93 H Respiratory 20 Rate Blood Pressure 147/95 147/95 153/95 O2 Sat by Pulse 98 Oximetry 02/09/20 02/09/20 06:21 07:30 Temperature Pulse Rate 93 H 93 H Respiratory Rate Blood Pressure 153/95 153/95 O2 Sat by Pulse Oximetry - General Appearance General appearance: well-developed, well-nourished, appears stated age EENT: PERRL, mucous membranes moist Neck: no JVD, no thyromegaly, no carotid bruit, supple Respiratory: Present: Clear to Ascultation Cardiology: regular, normal heart rate, S1S2, no murmurs Gastrointestinal: normal, normoactive bowel sounds Integumentary: no rash, other (AV fistula right upper arm. Good bruit and thri ll.) - Lab 02/08/20 12:23 02/08/20 12:23 Most recent lab results Calcium 8.5 mg/dL (8.4-10.2) 02/08/20 12:23 Medications & Allergies - Medications Allergies/Adverse Reactions: Allergies lisinopril Allergy (Verified 01/20/20 15:43) Swelling metoprolol Allergy (Verified 01/20/20 15:43) Unknown acetaminophen [From Percocet] Adverse Reaction (Verified 02/09/20 07:21) Itching oxycodone [From Percocet] Adverse Reaction (Verified 02/09/20 07:22) Itching oxycodone HCl [From Percocet] Adverse Reaction (Verified 01/20/20 15:43) Unknown Home Medications: Home Medications Medication Instructions Recorded Confirmed Last Taken Type Clonidine HCl [Catapres] 0.3 mg PO TID #60 tablet 11/27/19 01/21/20 1 Day Ago Rx ~01/20/20 Epoetin Blair 10,000 Unit [Procrit] 10,000 unit IV ALYSSA PRN vial 11/27/19 Unknown Rx Hydroxychloroquine [Plaquenil] 200 mg PO QDAY #30 tablet 11/27/19 Unknown Rx NIFEdipine XL [Procardia Xl] 60 mg PO Q12HR #60 tablet 11/27/19 Unknown Rx Oxycodone HCl/Acetaminophen 1 each PO Q6HR PRN #24 tablet 11/27/19 Unknown Rx [Percocet 7.5/325 mg] diphenhydrAMINE [Benadryl CAP] 25 mg PO QHS PRN 30 Days #60 11/27/19 Unknown Rx capsule hydrALAZINE [Apresoline TAB] 100 mg PO TID #90 tab 11/27/19 Unknown Rx labetaloL [Labetalol 200mg TAB] 200 mg PO TID #90 tablet 11/27/19 01/21/20 Unknown Rx levETIRAcetam [Keppra TAB] 750 mg PO BID #60 tablet 11/27/19 Unknown Rx levETIRAcetam [Keppra] 750 mg PO BID #60 oral.liqd 11/27/19 Unknown Rx Cyclobenzaprine [Flexeril] 10 mg PO TID PRN #10 tablet 12/25/19 Unknown Rx Ibuprofen [Motrin 800 MG tab] 800 mg PO Q8HR PRN #20 tablet 12/25/19 Unknown Rx HYDROcodone/APAP 5-325 [[place] 1 each PO Q6HR PRN #10 tablet 01/13/20 Unknown Rx 5-325 mg TAB] Ondansetron [Zofran Odt] 4 mg PO Q8HR PRN #20 tab.rapdis 01/13/20 Unknown Rx Promethazine [Phenergan] 25 mg [place] Q6HR PRN #10 supp.rect 01/13/20 Unknown Rx Furosemide [Lasix TAB] 80 mg PO ONCE 01/21/20 01/21/20 1 Day Ago History ~01/20/20 Furosemide [Lasix TAB] 80 mg PO ONCE 01/21/20 01/21/20 1 Day Ago History ~01/20/20 Phenytoin [Dilantin] 100 mg PO Q8HR 01/21/20 01/21/20 1 Day Ago History ~01/20/20 levETIRAcetam [Keppra TAB] 500 mg PO BID 01/21/20 01/21/20 Unknown History Active Medications: Generic Name Dose Route Start Last Admin Trade Name Freq PRN Reason Stop Dose Admin Acetaminophen 650 mg 02/08/20 18:29 Tylenol PO Q4H PRN Pain MILD(1-3)/Fever >100.5/WOLFF Clonidine HCl 0.2 mg 02/09/20 06:00 02/09/20 06:21 Catapres PO 0.2 mg Q8HR FERNANDO Administration Clonidine HCl 0.1 mg 02/09/20 06:00 02/09/20 06:21 Catapres PO 0.1 mg Q8HR FERNANDO Administration Cyclobenzaprine HCl 10 mg 02/08/20 18:19 Flexeril PO TID PRN Muscle Spasm Diphenhydramine HCl 25 mg 02/09/20 08:36 02/09/20 09:02 Benadryl IV 25 mg Q4H PRN Administration Itching Hydralazine HCl 100 mg 02/08/20 20:00 02/09/20 07:31 Apresoline PO 100 mg TID FERNANDO Administration Hydralazine HCl 10 mg 02/08/20 18:44 Apresoline IV Q3H PRN Blood Pressure Hydromorphone HCl 0.5 mg 02/08/20 18:29 02/09/20 09:02 Dilaudid IV 0.5 mg Q3H PRN Administration Pain , Severe (7-10) Hydroxychloroquine Sulfate 200 mg 02/08/20 19:00 02/09/20 09:10 Plaquenil PO 200 mg QDAY FERNANDO Administration Sodium Chloride 100 mls @ 999 mls/hr 02/08/20 14:30 Nacl 0.9% IV ALYSSA PRN Hypotension Ibuprofen 800 mg 02/08/20 18:19 Ibuprofen PO Q8HR PRN Pain, Moderate (4-6) Labetalol HCl 200 mg 02/08/20 20:00 02/09/20 07:30 Labetalol PO 200 mg TID FERNANDO Administration Levetiracetam 750 mg 02/08/20 22:00 02/09/20 09:07 Keppra PO 750 mg BID FERNANDO Administration Nifedipine 60 mg 02/08/20 22:00 02/09/20 09:10 Procardia Xl PO 60 mg Q12HR FERNANDO Administration Ondansetron HCl 4 mg 02/08/20 18:29 Zofran IV Q8H PRN Nausea And Vomiting Promethazine HCl 25 mg 02/08/20 18:26 Phenergan [place] Q6HR PRN Nausea And Vomiting Sodium Chloride 10 ml 02/08/20 22:00 02/09/20 00:14 Sodium Chloride Flush Syringe 10 Ml IV 10 ml BID FERNANDO Administration Sodium Chloride 10 ml 02/08/20 18:29 Sodium Chloride Flush Syringe 10 Ml IV PRN PRN LINE FLUSH
[2020-02-09 12:30] VITALS: BP 130/87
--- NOTE | 2020-02-09 16:48 | Discharge Summary ---
Providers - Providers Date of Admission: 02/08/20 14:16 Date of discharge: 02/09/20 Attending physician: RADHA OCASIO 02/08/20 14:08 Consult to Physician [CONS] Urgent Comment: Consulting Provider: SREEDHAR MENJIVRA Physician Instructions: Reason For Exam: hyperten urg, esrd Primary care physician: RAG BALER Hospitalization Condition: Stable Hospital course: Day #2-02/09/2020 29-year old -[place]ian female with history of end-stage renal disease hypertension and lupus and seizure disorder. Patient comes in for nausea vom iting for 2-3 times over the last 12hours. Also headache. Patient was sent to the emergency room from the dialysis center because of a hive blood pressure of about 230/130. They did not do the dialysis. No fever or chills. Patient noncompliant with blood pressure medications. Does not take clonidine regularly which causes rebound hypertension. No chest pain. No shortness of breath. No fever. No recent exposure to coron Blood pressure improved to normal range Suspect noncompliance Patient counseled No clonidine as it is causing her rebound hypertension (1) Hypertensive urgency, malignant Current Visit: Yes Status: Acute Plan to address problem: Blood pressure improved to normal range Suspect noncompliance Patient counseled No clonidine as it is causing her rebound hypertension (2) End stage renal disease Current Visit: Yes Status: Chronic Plan to address problem: Continue dialysis as per scheduled--- TTS schedule (3) Seizure disorder Current Visit: Yes Status: Chronic Plan to address problem: Continue antiepileptic drugs (4) SLE (systemic lupus erythematosus) Current Visit: Yes Status: Chronic Qualifiers: Systemic lupus erythematosus type: unspecified Plan to address problem: Continue Plaquenil (5) Anemia Current Visit: Yes Status: Chronic Qualifiers: Anemia type: unspecified type Qualified Code(s): D64.9 - Anemia, unspecified Plan to address problem: Continue Epogen as per schedule Disposition: DC-01 TO HOME OR SELFCARE - Discharge Diagnoses (1) Hypertensive urgency, malignant Status: Acute (2) End stage renal disease Status: Chronic (3) Seizure disorder Status: Chronic (4) SLE (systemic lupus erythematosus) Status: Chronic Qualifiers: Systemic lupus erythematosus type: unspecified (5) Anemia Status: Chronic Qualifiers: Anemia type: unspecified type Qualified Code(s): D64.9 - Anemia, unspecified (6) DVT prophylaxis Status: Acute Core Measure Documentation - Palliative Care Palliative Care/ Comfort Measures: Not Applicable - Core Measures Any of the following diagnoses?: none Exam - Constitutional Vitals: Temp Pulse Resp BP Pulse Ox 97.2 F L 79 18 130/87 99 02/09/20 11:53 02/09/20 14:05 02/09/20 11:53 02/09/20 14:05 02/09/20 13:40 General appearance: Present: no acute distress, well-nourished - EENT Eyes: Present: PERRL ENT: hearing intact, clear oral mucosa - Neck Neck: Present: supple, normal ROM - Respiratory Respiratory effort: normal Respiratory: bilateral: CTA - Cardiovascular Heart rate: 78 Rhythm: regular Heart Sounds: Present: S1 & S2. Absent: rub, click - Extremities Extremities: pulses symmetrical, No edema Peripheral Pulses: within normal limits - Abdominal General gastrointestinal: Present: soft, non-tender, non-distended, normal bowel sounds Female genitourinary: Present: normal - Integumentary Integumentary: Present: clear, warm, dry - Musculoskeletal Musculoskeletal: gait normal, strength equal bilaterally - Psychiatric Psychiatric: appropriate mood/affect, intact judgment & insight - Neurologic Neurologic: CNII-XII intact, moves all extremities Plan Activity: no restrictions Diet: renal Follow up with: ODIN LYMAN MD [Primary Care Provider] - 3-5 Days SREEDHAR MENJIVAR MD [Staff Physician] - 7 Days
== END 2020-02-09 18:43 | disposition home or self-care (01) ==
LOC: ED 11:26 → IMCU 14:16
PROVIDERS: ADMIT Internal Medicine; ATTEND Internal Medicine
DX: I16.0 Hypertensive urgency (principal); I13.2 Hypertensive heart and chronic kidney disease with heart failure and with stage 5 chronic kidney disease, or end stage renal disease; I50.9 Heart failure, unspecified; N18.6 End stage renal disease; R56.9 Unspecified convulsions; D64.9 Anemia, unspecified; M32.9 Systemic lupus erythematosus, unspecified; M19.90 Unspecified osteoarthritis, unspecified site; G43.909 Migraine, unspecified, not intractable, without status migrainosus; J45.909 Unspecified asthma, uncomplicated; E87.2 Acidosis; F32.9 Major depressive disorder, single episode, unspecified; Z87.891 Personal history of nicotine dependence; Z98.890 Other specified postprocedural states; Z79.899 Other long term (current) drug therapy; Z99.2 Dependence on renal dialysis
CPT/HCPCS: 36415; 71045; 80048; 80074; 85025; 96374; 96375; 96376; 99284; G0257; G0378; J0360; J1170; J1200; J1885; J2270; J2405; J7030

== ENCOUNTER 2020-02-11 06:19 | Inpatient (IN) | payer MEDICARE ==
[2020-02-11] MEDS ORDERED: hydrALAZINE 20 MG/1 ML INJ IV ONE ×2 (08:08→11:03)
[2020-02-11] MEDS ORDERED: fentaNYL 100 MCG/2 ML INJ IV ONE ×2 (08:08→09:34)
[2020-02-11] MEDS ORDERED: ONDANSETRON 4 MG/2 ML INJ IV ONE ×2 (08:08→12:16)
--- NOTE | 2020-02-11 08:18 | Emergency Department Report ---
HPI - General Chief Complaint: Back Pain/Injury PUI?: No Time Seen by Provider: 02/11/20 08:01 - HPI HPI: Room 19 The patient is a 23-year-old female present with a chief complaint of chest and back pain. Patient states her symptoms began last night with pain in the chest and back described as sharp and intermittent in nature. Patient admits to shortness of breath and nausea vomiting. Patient denies fever. The patient st ates she had hemodialysis yesterday ED Past Medical Hx - Past Medical History Previous Medical History?: Yes Hx Hypertension: Yes Hx Congestive Heart Failure: Yes Hx Diabetes: Yes Hx Renal Disease: Yes (HD T,THUR,SAT) Hx Arthritis: Yes Hx Headaches / Migraines: Yes Hx Seizures: Yes Hx Asthma: Yes Hx COPD: Yes Additional medical history: Lupus - Surgical History Past Surgical History?: Yes Additional Surgical History: RIGHT ARM graft - Family History Family history: no significant - Social History Smoking Status: Former Smoker Substance Use Type: None - Medications Home Medications: Home Medications Medication Instructions Recorded Confirmed Last Taken Type Clonidine HCl [Catapres] 0.3 mg PO TID #60 tablet 11/27/19 01/21/20 1 Day Ago Rx ~01/20/20 Epoetin Blair 10,000 Unit [Procrit] 10,000 unit IV ALYSSA PRN vial 11/27/19 Unknown Rx Hydroxychloroquine [Plaquenil] 200 mg PO QDAY #30 tablet 11/27/19 Unknown Rx NIFEdipine XL [Procardia Xl] 60 mg PO Q12HR #60 tablet 11/27/19 Unknown Rx Oxycodone HCl/Acetaminophen 1 each PO Q6HR PRN #24 tablet 11/27/19 Unknown Rx [Percocet 7.5/325 mg] diphenhydrAMINE [Benadryl CAP] 25 mg PO QHS PRN 30 Days #60 11/27/19 Unknown Rx capsule levETIRAcetam [Keppra TAB] 750 mg PO BID #60 tablet 11/27/19 Unknown Rx levETIRAcetam [Keppra] 750 mg PO BID #60 oral.liqd 11/27/19 Unknown Rx Cyclobenzaprine [Flexeril] 10 mg PO TID PRN #10 tablet 12/25/19 Unknown Rx Ibuprofen [Motrin 800 MG tab] 800 mg PO Q8HR PRN #20 tablet 12/25/19 Unknown Rx HYDROcodone/APAP 5-325 [[place] 1 each PO Q6HR PRN #10 tablet 01/13/20 Unknown Rx 5-325 mg TAB] Ondansetron [Zofran Odt] 4 mg PO Q8HR PRN #20 tab.rapdis 01/13/20 Unknown Rx Promethazine [Phenergan] 25 mg MN Q6HR PRN #10 supp.rect 01/13/20 Unknown Rx Furosemide [Lasix TAB] 80 mg PO ONCE 01/21/20 01/21/20 1 Day Ago History ~01/20/20 Furosemide [Lasix TAB] 80 mg PO ONCE 01/21/20 01/21/20 1 Day Ago History ~01/20/20 Phenytoin [Dilantin] 100 mg PO Q8HR 01/21/20 01/21/20 1 Day Ago History ~01/20/20 levETIRAcetam [Keppra TAB] 500 mg PO BID 01/21/20 01/21/20 Unknown History Oxycodone HCl/Acetaminophen 1 each PO Q6HR PRN #20 tablet 02/09/20 Unknown Rx [Percocet 7.5/325 mg] hydrALAZINE [Apresoline TAB] 100 mg PO TID #90 tab 02/09/20 Unknown Rx labetaloL [Labetalol 200mg TAB] 200 mg PO TID #90 tablet 02/09/20 Unknown Rx ED Review of Systems ROS: Stated complaint: KIDNEY PAIN Other details as noted in HPI Constitutional: denies: fever Eyes: denies: eye pain ENT: denies: throat pain Respiratory: shortness of breath Cardiovascular: chest pain Gastrointestinal: nausea, vomiting Musculoskeletal: back pain Physical Exam - Physical Exam Vital Signs: Vital Signs 02/11/20 06:30 Temperature 98.1 F Pulse Rate 108 H Respiratory 16 Rate Blood Pressure 190/128 O2 Sat by Pulse 100 Oximetry Physical Exam: GENERAL: The patient is well-developed well-nourished female lying on stretcher holding emesis bag occasionally vomiting. [] HEENT: Normocephalic. Atraumatic. Extraocular motions are intact. Patient has moist mucous membranes. NECK: Supple. Trachea midline CHEST/LUNGS: Clear to auscultation. There is no respiratory distress noted. HEART/CARDIOVASCULAR: Regular. There is tachycardia. There is no gallop rub or murmur. ABDOMEN: Abdomen is soft, nontender. Patient has normal bowel sounds. There is no abdominal distention. SKIN: There is no rash. There is no edema. There is no diaphoresis. NEURO: The patient is awake, alert, and oriented. The patient is cooperative. The patient has normal speech MUSCULOSKELETAL: There is no evidence of acute injury. ED Course Vital Signs 02/11/20 06:30 Temperature 98.1 F Pulse Rate 108 H Respiratory 16 Rate Blood Pressure 190/128 O2 Sat by Pulse 100 Oximetry ED Medical Decision Making - Lab Data Result diagrams: 02/11/20 08:26 02/11/20 08:26 Laboratory Tests 02/11/20 02/11/20 02/11/20 08:26 08:26 08:26 WBC 4.6 RBC 3.34 L Hgb 9.7 L Hct 30.3 MCV 91 MCH 29 MCHC 32 RDW 19.2 H Plt Count 208 Lymph % (Auto) 17.7 Kane % (Auto) 7.9 H Eos % (Auto) 2.6 Baso % (Auto) 0.3 Lymph # 0.8 L Kane # 0.4 Eos # 0.1 Baso # 0.0 Seg Neutrophils % 71.5 H Seg Neutrophils # 3.3 PT 14.6 INR 1.16 H APTT 35.6 Sodium 138 Potassium 4.4 Chloride 100.6 Carbon Dioxide 21 L Anion Gap 21 BUN 18 H Creatinine 5.1 H D Estimated GFR 12 BUN/Creatinine Ratio 4 Glucose 72 Calcium 9.0 Total Creatine Kinase 122 CK-MB (CK-2) 5.1 H CK-MB (CK-2) Rel Index 4.1 H Troponin T 0.232 H* Triglycerides 59 Cholesterol 82 LDL Cholesterol Direct 37 L HDL Cholesterol 42 Cholesterol/HDL Ratio 1.95 Lipase 23 - EKG Data -: EKG Interpreted by Me Rate: tachycardia (119 bpm) - EKG Data Interpretation: nonspecific ST-T wave brandee (T wave inversions in leads I, aVL, V2) - Radiology Data Radiology results: report reviewed (Chest x-ray), image reviewed (Chest x-ray) interpreted by me: Chest [id number]. No pneumothorax [facility] [address] [place] [address] XRay Report Signed Patient: SANDRA DICKEY MR#: [id number] : 1990 Acct:[id number] Age/Sex: 29 / F ADM Date: 02/11/20 Loc: ED Attending Dr: Ordering Physician: ISIAH URBANO MD Date of Service: 02/11/20 Procedure(s): XR chest 1V ap Accession Number(s): [id number] cc: ISIAH URBANO MD Fluoro Time In Minutes: CHEST 1 VIEW 02/11/2020 8:05 AM INDICATION / CLINICAL INFORMATION: Chest Pain. COMPARISON: 02/08/2020 FINDINGS: SUPPORT DEVICES: None. HEART / MEDIASTINUM: Stable mild cardiomegaly. LUNGS / PLEURA: Stable pulmonary vascular congestion and linear scarring in the right lower lung. No new consolidation or significant effusion. No pneumothorax. ADDITIONAL FINDINGS: No significant additional findings. IMPRESSION: 1. Stable chronic findings without adverse change from 02/08/20. Signer Name: Virgilio Matthew MD Signed: 02/11/2020 8:25 AM Workstation Name: [id number] Transcribed By: REJI Dictated By: Virgilio Matthew MD Electronically Authenticated By: Virgilio Matthew MD Signed Date/Time: 02/11/20824 DD/ 3 TD/TT: - Differential Diagnosis Hypertensive urgency Critical care attestation.: If time is entered above; I have spent that time in minutes in the direct care of this critically ill patient, excluding procedure time. ED Disposition Clinical Impression: Hypertensive urgency, Chest pain Disposition: OP ADMIT IP TO THIS HOSP Is pt being admited?: Yes Does the pt Need Aspirin: Yes Condition: Fair Instructions: Chest Pain (ED) Time of Disposition: 12:50 (Hospitalist paged)
[2020-02-11] MEDS ORDERED: diphenhydrAMINE 50 MG/ML VIAL ONE ×2 (09:24→12:03)
[2020-02-11 09:27] LABS: Basophils % (Auto) 0.3 % (0.0-1.8); Eosinophils # (Auto) 0.1 K/mm3 (0.0-0.4); Eosinophils % (Auto) 2.6 % (0.0-4.3); Hematocrit 30.3 % (30.3-42.9); Hemoglobin 9.7 gm/dl (10.1-14.3); Lymphocytes # (Auto) 0.8 K/mm3 (1.2-5.4); Lymphocytes % (Auto) 17.7 % (13.4-35.0); Mean Corpuscular HGB Conc 32 % (30-34); Mean Corpuscular Volume 91 fl (79-97); Monocytes # (Auto) 0.4 K/mm3 (0.0-0.8); Monocytes % (Auto) 7.9 % (0.0-7.3); Platelet Count 208 K/mm3 (140-440); Red Blood Count 3.34 M/mm3 (3.65-5.03); Red Cell Distribution Width 19.2 % (13.2-15.2)
[2020-02-11 09:36] LABS: INR 1.16 (0.87-1.13); Partial Thromboplastin Time 35.6 Sec. (24.2-36.6)
[2020-02-11 09:52] LABS: Creatine Kinase MB 5.1 ng/mL (0.0-4.0)
[2020-02-11 10:12] LABS: Chol/HDL Ratio 1.95 %
[2020-02-11] MEDS ORDERED: HYDROmorphone 1 MG/1 ML INJ IV ONE ×2 (11:38→12:17)
[2020-02-11] MEDS ORDERED: ONDANSETRON 4 MG/2 ML INJ ONE (12:04)
[2020-02-11] MEDS ORDERED: cloNIDine 0.2 MG TAB PO ONE (12:53)
[2020-02-11] MEDS: diphenhydrAMINE 50 MG/ML VIAL IM PRN ×2 (13:13→18:37)
[2020-02-11] MEDS ORDERED: hydrALAZINE 20 MG/1 ML INJ ONE (14:59)
[2020-02-11] MEDS ORDERED: NON-FORMULARY EACH (Oxycodone Hcl/Acetaminophen [Percocet 7.5/325 Mg] 1 EACH) PO PRN (16:47)
[2020-02-11] MEDS ORDERED: diphenhydrAMINE 25 MG CAP PO PRN (16:47)
[2020-02-11] MEDS ORDERED: PROMETHAZINE 25 MG RECT SUPP PR PRN (16:47)
[2020-02-11] MEDS ORDERED: oxyCODONE /ACETAMINOPHEN 5-325MG TAB PO PRN (16:57)
[2020-02-11] MEDS ORDERED: oxyCODONE 5 MG TAB PO PRN ×2 (16:58→18:00)
[2020-02-11] MEDS ORDERED: NON-FORMULARY EACH (Clonidine Hcl [Catapres] 0.3 MG) PO SCH (20:00)
[2020-02-11] MEDS: cloNIDine 0.1 MG TAB PO SCH (20:00)
[2020-02-11] MEDS: hydrALAZINE 100 MG TAB PO SCH (20:07)
[2020-02-11] MEDS: IBUPROFEN 800 MG TAB PO PRN (20:08)
[2020-02-11] MEDS: NIFEdipine XL 60 MG TAB PO SCH (21:00)
[2020-02-11] MEDS ORDERED: levETIRAcetam 500 MG/5 ML ORAL LIQD PO SCH (22:00)
[2020-02-11] MEDS ORDERED: NON-FORMULARY EACH (Levetiracetam [Keppra Tab] 1,000 MG) PO SCH (22:00)
[2020-02-11] MEDS: CYCLOBENZAPRINE 10 MG TAB PO PRN (22:52)
[2020-02-11] MEDS: levETIRAcetam 500 MG TAB PO SCH (22:58)
[2020-02-12] MEDS: diphenhydrAMINE 50 MG/ML VIAL IM PRN ×2 (01:47→08:49)
[2020-02-12] MEDS: IBUPROFEN 800 MG TAB PO PRN (04:04)
[2020-02-12] MEDS: cloNIDine 0.1 MG TAB PO SCH (08:48)
[2020-02-12] MEDS: hydrALAZINE 100 MG TAB PO SCH ×4 (08:49→19:47)
[2020-02-12] MEDS: levETIRAcetam 500 MG TAB PO SCH ×2 (09:38→22:53)
[2020-02-12] MEDS: NIFEdipine XL 60 MG TAB PO SCH ×2 (09:38→22:54)
[2020-02-12] MEDS: HYDROXYCHLOROQUINE 200 MG TAB PO SCH (09:38)
[2020-02-12] MEDS: KETOROLAC 30 MG/1 ML INJ IV PRN ×3 (09:38→22:54)
[2020-02-12] MEDS ORDERED: SODIUM CHLORIDE 0.9% 100 ML IV PRN (12:00)
[2020-02-12] MEDS: PANTOPRAZOLE 40 MG INJ IV SCH ×2 (12:13→22:54)
[2020-02-12] MEDS: VALSARTAN 160MG TAB PO SCH ×2 (12:13→22:54)
[2020-02-12] MEDS: diphenhydrAMINE 50 MG/ML VIAL IV PRN ×2 (14:53→19:54)
[2020-02-12] MEDS: EPOETIN ALFA 10,000 UNIT/1 ML INJ IV PRN (15:25)
[2020-02-12] MEDS ORDERED: ONDANSETRON 4 MG/2 ML INJ ONE (15:25)
[2020-02-12] MEDS: ONDANSETRON 4 MG ODT TAB PO PRN (19:46)
[2020-02-12] MEDS: HYDROcodone/ACETAMINOPHEN 5-325 MG TAB PO PRN (19:46)
[2020-02-13] MEDS: CYCLOBENZAPRINE 10 MG TAB PO PRN ×4 (01:18→20:22)
[2020-02-13] MEDS: HYDROcodone/ACETAMINOPHEN 5-325 MG TAB PO PRN ×4 (01:18→20:23)
[2020-02-13] MEDS: diphenhydrAMINE 50 MG/ML VIAL IV PRN ×4 (01:19→20:23)
[2020-02-13] MEDS: KETOROLAC 30 MG/1 ML INJ IV PRN ×4 (05:46→22:47)
[2020-02-13] MEDS: ONDANSETRON 4 MG ODT TAB PO PRN (05:47)
[2020-02-13 07:40] LABS: Basophils % (Auto) 0.3 % (0.0-1.8); Eosinophils # (Auto) 0.2 K/mm3 (0.0-0.4); Eosinophils % (Auto) 2.7 % (0.0-4.3); Hematocrit 29.3 % (30.3-42.9); Lymphocytes # (Auto) 0.6 K/mm3 (1.2-5.4); Mean Corpuscular HGB Conc 31 % (30-34); Mean Corpuscular Volume 91 fl (79-97); Monocytes # (Auto) 0.6 K/mm3 (0.0-0.8); Monocytes % (Auto) 9.2 % (0.0-7.3); Platelet Count 334 K/mm3 (140-440); Red Cell Distribution Width 18.4 % (13.2-15.2)
[2020-02-13 07:59] LABS: Calcium 8.8 mg/dL (8.4-10.2)
[2020-02-13] MEDS: VALSARTAN 160MG TAB PO SCH ×2 (09:14→22:31)
[2020-02-13] MEDS: hydrALAZINE 100 MG TAB PO SCH ×3 (09:14→20:23)
[2020-02-13] MEDS: levETIRAcetam 500 MG TAB PO SCH ×2 (09:14→22:31)
[2020-02-13] MEDS: HYDROXYCHLOROQUINE 200 MG TAB PO SCH (09:14)
[2020-02-13] MEDS: NIFEdipine XL 60 MG TAB PO SCH ×2 (09:14→22:31)
[2020-02-13] MEDS: PANTOPRAZOLE 40 MG TAB PO SCH ×2 (09:14→22:32)
[2020-02-14] MEDS: diphenhydrAMINE 50 MG/ML VIAL IV PRN ×4 (02:19→23:49)
[2020-02-14] MEDS: HYDROcodone/ACETAMINOPHEN 5-325 MG TAB PO PRN ×2 (02:19→13:53)
[2020-02-14] MEDS ORDERED: IPRATROPIUM/ALBUTEROL SULFATE 3 ML AMPUL.NEB IH PRN (07:07)
[2020-02-14] MEDS: IPRATROPIUM/ALBUTEROL SULFATE 3 ML AMPUL.NEB IH SCH ×4 (07:48→20:55)
[2020-02-14] MEDS: KETOROLAC 30 MG/1 ML INJ IV PRN ×3 (07:52→21:36)
[2020-02-14] MEDS: methylPREDNISolone Sod Succinate 125 MG/2 ML INJ IV SCH ×2 (08:00→21:49)
[2020-02-14] MEDS ORDERED: ALBUTEROL 2.5 MG/3 ML NEBU IH PRN (08:00)
[2020-02-14] MEDS: hydrALAZINE 100 MG TAB PO SCH ×3 (08:01→21:37)
[2020-02-14] MEDS: NIFEdipine XL 60 MG TAB PO SCH ×2 (09:51→21:38)
[2020-02-14] MEDS: VALSARTAN 160MG TAB PO SCH ×2 (09:51→21:37)
[2020-02-14] MEDS: HYDROXYCHLOROQUINE 200 MG TAB PO SCH (09:51)
[2020-02-14] MEDS: PANTOPRAZOLE 40 MG TAB PO SCH ×2 (09:51→21:38)
[2020-02-14] MEDS: levETIRAcetam 500 MG TAB PO SCH ×2 (09:51→21:38)
[2020-02-15] MEDS: KETOROLAC 30 MG/1 ML INJ IV PRN ×2 (04:15→16:05)
[2020-02-15] MEDS: CYCLOBENZAPRINE 10 MG TAB PO PRN (04:17)
[2020-02-15] MEDS: diphenhydrAMINE 50 MG/ML VIAL IV PRN ×2 (05:49→11:38)
[2020-02-15] MEDS: IPRATROPIUM/ALBUTEROL SULFATE 3 ML AMPUL.NEB IH SCH (07:47)
[2020-02-15] MEDS: hydrALAZINE 100 MG TAB PO SCH ×2 (08:34→15:50)
[2020-02-15] MEDS: methylPREDNISolone Sod Succinate 125 MG/2 ML INJ IV SCH (08:48)
[2020-02-15] MEDS: levETIRAcetam 500 MG TAB PO SCH (09:02)
[2020-02-15] MEDS: HYDROXYCHLOROQUINE 200 MG TAB PO SCH (09:02)
[2020-02-15] MEDS: PANTOPRAZOLE 40 MG TAB PO SCH (09:02)
[2020-02-15] MEDS: VALSARTAN 160MG TAB PO SCH (09:03)
[2020-02-15] MEDS: NIFEdipine XL 60 MG TAB PO SCH (09:05)
[2020-02-15] MEDS: EPOETIN ALFA 10,000 UNIT/1 ML INJ IV PRN (10:43)
[2020-02-15] MEDS ORDERED: HYDROmorphone 1 MG/1 ML INJ IV PRN (11:09)
[2020-02-15] MEDS ORDERED: SODIUM CHLORIDE 0.9% 1000 ML 2,000 ML ONE (11:36)
[2020-02-15] MEDS ORDERED: IPRATROPIUM/ALBUTEROL SULFATE 3 ML AMPUL.NEB IH SCH (14:00)
[2020-02-15 15:51] VITALS: BP 141/82
[2020-02-17] MEDS ORDERED: levoFLOXacin 500 MG TAB PO SCH (10:00)
== END 2020-02-15 19:16 | disposition home or self-care (01) | DRG 391 ==
LOC: ED 06:19 → 4A 12:52 → UNDODISOB 19:41 → OBSVTOIN 02-14 06:55
PROVIDERS: ADMIT Internal Medicine; ATTEND Internal Medicine
PROC: 5A1D70Z Performance of Urinary Filtration, Intermittent, Less than 6 Hours Per Day (ICD-10-PCS; principal; 2020-02-12)
PROC: 5A1D70Z Performance of Urinary Filtration, Intermittent, Less than 6 Hours Per Day (ICD-10-PCS; 2020-02-15)
DX: K29.00 Acute gastritis without bleeding (principal); N18.6 End stage renal disease; I13.2 Hypertensive heart and chronic kidney disease with heart failure and with stage 5 chronic kidney disease, or end stage renal disease; I16.0 Hypertensive urgency; R07.89 Other chest pain; M32.9 Systemic lupus erythematosus, unspecified; J40 Bronchitis, not specified as acute or chronic; G43.909 Migraine, unspecified, not intractable, without status migrainosus; D63.8 Anemia in other chronic diseases classified elsewhere; I50.9 Heart failure, unspecified; G40.909 Epilepsy, unspecified, not intractable, without status epilepticus; E11.22 Type 2 diabetes mellitus with diabetic chronic kidney disease; M19.90 Unspecified osteoarthritis, unspecified site; Z87.891 Personal history of nicotine dependence; Z99.2 Dependence on renal dialysis; Z88.5 Allergy status to narcotic agent; Z91.14 Patient's other noncompliance with medication regimen; Z88.8 Allergy status to other drugs, medicaments and biological substances; Z88.6 Allergy status to analgesic agent; Z79.899 Other long term (current) drug therapy
CPT/HCPCS: 36415; 71045; 71046; 80048; 80061; 82550; 82553; 83690; 84484; 85025; 85610; 85730; 94640; 96374; 96375; G0378; C9113; J0360; J0885; J1170; J1200; J1885; J1956; J2405; J2930; J3010; J3246; J7030; Q0162

== ENCOUNTER 2020-02-21 00:10 | Emergency (ER) | payer MEDICARE ==
[2020-02-21] MEDS ORDERED: levETIRAcetam 1000 MG/NS 0.75% 1,000 MG/100 ML BAG IV ONE (02:18)
[2020-02-21 02:21] LABS: Hematocrit 25.7 % (30.3-42.9); Hemoglobin 8.3 gm/dl (10.1-14.3); Mean Corpuscular HGB Conc 32 % (30-34); Mean Corpuscular Volume 91 fl (79-97); Platelet Count 216 K/mm3 (140-440); Red Blood Count 2.84 M/mm3 (3.65-5.03)
[2020-02-21 02:35] LABS: Calcium 8.8 mg/dL (8.4-10.2)
--- NOTE | 2020-02-21 03:14 | Cat Scan Report ---
. CT HEAD WITHOUT CONTRAST INDICATION / CLINICAL INFORMATION: Seizure. TECHNIQUE: All CT scans at this location are performed using CT dose reduction for ALARA by means of automated e xposure control. COMPARISON: Head CT 10/26/2019 FINDINGS: HEMORRHAGE: None. EXTRA-AXIAL SPACES: Normal in size and morphology for the patient's age. VENTRICULAR SYSTEM: Normal in size and morphology for the patient's age. CEREBRAL PARENCHYMA: No significant abnormality. No acute territorial infarct. MIDLINE SHIFT OR HERNIATION: None. CEREBELLUM / BRAINSTEM: No significant abnormality. ORBITS: Normal as visualized. SOFT TISSUES of HEAD: No significant abnormality. CALVARIUM: No significant abnormality. PARANASAL SINUSES / MASTOID AIR CELLS: Normal as visualized. ADDITIONAL FINDINGS: None. IMPRESSION: 1. No acute intracranial abnormality. Signer Name: Lopez Boyle MD Signed: 02/21/2020 3:10 AM Workstation Name: [id number]
--- NOTE | 2020-02-21 03:57 | XRay Report ---
CHEST 1 VIEW 02/21/2020 2:42 AM INDICATION / CLINICAL INFORMATION: Seizure. COMPARISON: Chest x-ray 02/19/2020 FINDINGS: SUPPORT DEVICES: None. HEART / MEDIASTINUM: Stable moderate cardiomegaly. LUNGS / PLEURA: No significant pulmonary or pleural abnormality. No pneumothorax. ADDITIONAL FINDINGS: No significant additional findings. IMPRESSION: 1. Cardiomegaly without CHF, unchanged Signer Name: Lopez Boyle MD Signed: 02/21/2020 3:53 AM Workstation Name: [email or web address] ([email or web address])
[2020-02-21] MEDS ORDERED: ONDANSETRON 4 MG/2 ML INJ IV ONE (04:08)
[2020-02-21] MEDS ORDERED: cloNIDine 0.2 MG TAB PO ONE (04:09)
--- NOTE | 2020-02-21 05:04 | Event Note ---
Date: 02/21/20 Medical screening examination: 29-year-old female, noncompliant with dialysis, presenting to the ER today with EMS with a complaint of seizure. She is found to be hypertensive. She is complaining of nausea. She has chronic lupus related pain. Check labs, give Keppra, antihypertensive therapy, EKG, x-ray of the chest, noncontrast CT scan of the brain, reassess, placed on a desk monitor. Vital Signs 02/21/20 02/21/20 02/21/20 02:53 02:55 04:12 Temperature 98.1 F Pulse Rate 87 87 Respiratory 20 20 Rate Blood Pressure 181/115 Blood Pressure 177/112 [Left] O2 Sat by Pulse 100 100 Oximetry Vital Signs 02/21/20 02/21/20 02/21/20 02:53 02:55 04:12 Temperature 98.1 F Pulse Rate 87 87 Respiratory 20 20 Rate Blood Pressure 181/115 Blood Pressure 177/112 [Left] O2 Sat by Pulse 100 100 Oximetry Labs 02/21/20 02/21/20 02/21/20 01:59 01:59 01:59 WBC 4.3 L RBC 2.84 L Hgb 8.3 L Hct 25.7 L MCV 91 MCH 29 MCHC 32 RDW 18.0 H Plt Count 216 Sodium 137 Potassium 4.5 Chloride 101.3 Carbon Dioxide 20 L Anion Gap 20 BUN 51 H Creatinine 7.7 H Estimated GFR 8 BUN/Creatinine Ratio 7 Glucose 75 Calcium 8.8 Phenytoin 0.8 L
--- NOTE | 2020-02-21 06:05 | Emergency Department Report ---
ED Seizure HPI - General Chief Complaint: Seizure Stated Complaint: SEIZURE Time Seen by Provider: 02/21/20 05:59 Source: patient, EMS Mode of arrival: Stretcher Limitations: Altered Mental Status - History of Present Illness Initial Comments: Mrs. Turner is a 29-year-old female with history of SLE, seizure disorder, end- stage renal disease on hemodialysis, hypertension, asthma, CHF who presents via EMS for witnessed seizure. Mother contacted EMS. Due to decreased level of consciousness, history limited from patient. According to EMR, patient takes Keppra for antiepileptic. MD Complaint: seizure, loss of consciousness Description of Episode: loss of consciousness Witnessed:: Yes Seizure History: known seizure disorder Place: home Possible Precipitating Event: other (unknowqn) Treatments Prior to Arrival: none - Related Data Previous Rx's Medication Instructions Recorded Last Taken Type Epoetin Blair 10,000 Unit [Procrit] 10,000 unit IV ALYSSA PRN vial 11/27/19 Unknown Rx diphenhydrAMINE [Benadryl CAP] 25 mg PO QHS PRN 30 Days #60 11/27/19 Unknown Rx capsule Ibuprofen [Motrin 800 MG tab] 800 mg PO Q8HR PRN #20 tablet 12/25/19 Unknown Rx HYDROcodone/APAP 5-325 [[place] 1 each PO Q6HR PRN #10 tablet 01/13/20 Unknown Rx 5-325 mg TAB] Ondansetron [Zofran Odt] 4 mg PO Q8HR PRN #20 tab.rapdis 01/13/20 Unknown Rx Cyclobenzaprine [Flexeril 10 MG 10 mg PO TID PRN #90 tablet 02/15/20 Unknown Rx TAB] Furosemide [Lasix TAB] 80 mg PO QDAY 30 Days #30 02/15/20 Unknown Rx HYDROmorphone [Dilaudid] 2 mg PO BID #10 tablet 02/15/20 Unknown Rx Hydroxychloroquine [Plaquenil] 200 mg PO QDAY 30 Days #30 02/15/20 Unknown Rx Hydroxychloroquine [Plaquenil] 200 mg PO QDAY 30 Days #30 tablet 02/15/20 Unknown Rx Ipratropium/Albuterol Sulfate 1 ampul IH TIDRT #50 ampul.neb 02/15/20 Unknown Rx [DUONEB *Not for PRN Use*] NIFEdipine XL [Procardia Xl] 60 mg PO Q12HR #30 tablet 02/15/20 Unknown Rx Oxycodone HCl/Acetaminophen 1 each PO TID PRN #14 tablet 02/15/20 Unknown Rx [Percocet 10/325 mg] Pantoprazole [Protonix TAB] 40 mg PO QDAY #30 tablet 02/15/20 Unknown Rx Valsartan [Diovan] 160 mg PO BID #60 tablet 02/15/20 Unknown Rx hydrALAZINE [Apresoline TAB] 100 mg PO TID #90 tab 02/15/20 Unknown Rx labetaloL [Labetalol 200mg TAB] 200 mg PO TID #90 tablet 02/15/20 Unknown Rx levETIRAcetam [Keppra TAB] 1,000 mg PO BID #60 tablet 02/15/20 Unknown Rx levETIRAcetam [Keppra TAB] 500 mg PO BID #60 02/15/20 Unknown Rx levoFLOXacin [Levaquin TAB] 500 mg PO Q48HR #7 tablet 02/15/20 Unknown Rx Allergies Allergy/AdvReac Type Severity Reaction Status Date / Time lisinopril Allergy Swelling Verified 01/20/20 15:43 metoprolol Allergy Unknown Verified 01/20/20 15:43 acetaminophen [From Percocet] AdvReac Itching Verified 02/09/20 07:21 oxycodone [From Percocet] AdvReac Itching Verified 02/09/20 07:22 oxycodone HCl [From Percocet] AdvReac Unknown Verified 01/20/20 15:43 ED Review of Systems ROS: Stated complaint: SEIZURE Other details as noted in HPI Comment: Unobtainable due to pts medical conditions (Altered mental status) ED Past Medical Hx - Past Medical History Previous Medical History?: Yes Hx Hypertension: Yes Hx Congestive Heart Failure: Yes Hx Diabetes: Yes Hx Renal Disease: Yes (HD T,THUR,SAT) Hx Arthritis: Yes Hx Headaches / Migraines: Yes Hx Seizures: Yes Hx Asthma: Yes Hx COPD: Yes Hx HIV: No Additional medical history: Lupus - Surgical History Past Surgical History?: Yes Additional Surgical History: RIGHT ARM graft - Social History Smoking Status: Unknown if ever smoked - Medications Home Medications: Home Medications Medication Instructions Recorded Confirmed Last Taken Type Epoetin Blair 10,000 Unit [Procrit] 10,000 unit IV ALYSSA PRN vial 11/27/19 02/12/20 Unknown Rx diphenhydrAMINE [Benadryl CAP] 25 mg PO QHS PRN 30 Days #60 11/27/19 02/12/20 Unknown Rx capsule Ibuprofen [Motrin 800 MG tab] 800 mg PO Q8HR PRN #20 tablet 12/25/19 02/12/20 Unknown Rx HYDROcodone/APAP 5-325 [[place] 1 each PO Q6HR PRN #10 tablet 01/13/20 02/12/20 Unknown Rx 5-325 mg TAB] Ondansetron [Zofran Odt] 4 mg PO Q8HR PRN #20 tab.rapdis 01/13/20 02/12/20 Unknown Rx Cyclobenzaprine [Flexeril 10 MG 10 mg PO TID PRN #90 tablet 02/15/20 Unknown Rx TAB] Furosemide [Lasix TAB] 80 mg PO QDAY 30 Days #30 02/15/20 Unknown Rx HYDROmorphone [Dilaudid] 2 mg PO BID #10 tablet 02/15/20 Unknown Rx Hydroxychloroquine [Plaquenil] 200 mg PO QDAY 30 Days #30 02/15/20 Unknown Rx Hydroxychloroquine [Plaquenil] 200 mg PO QDAY 30 Days #30 tablet 02/15/20 Unknown Rx Ipratropium/Albuterol Sulfate 1 ampul IH TIDRT #50 ampul.neb 02/15/20 Unknown Rx [DUONEB *Not for PRN Use*] NIFEdipine XL [Procardia Xl] 60 mg PO Q12HR #30 tablet 02/15/20 Unknown Rx Oxycodone HCl/Acetaminophen 1 each PO TID PRN #14 tablet 02/15/20 Unknown Rx [Percocet 10/325 mg] Pantoprazole [Protonix TAB] 40 mg PO QDAY #30 tablet 02/15/20 Unknown Rx Valsartan [Diovan] 160 mg PO BID #60 tablet 02/15/20 Unknown Rx hydrALAZINE [Apresoline TAB] 100 mg PO TID #90 tab 02/15/20 Unknown Rx labetaloL [Labetalol 200mg TAB] 200 mg PO TID #90 tablet 02/15/20 Unknown Rx levETIRAcetam [Keppra TAB] 1,000 mg PO BID #60 tablet 02/15/20 Unknown Rx levETIRAcetam [Keppra TAB] 500 mg PO BID #60 02/15/20 Unknown Rx levoFLOXacin [Levaquin TAB] 500 mg PO Q48HR #7 tablet 02/15/20 Unknown Rx ED Physical Exam - General Limitations: Altered Mental Status General appearance: in no apparent distress, other (Appears to be sleeping protecting airway) - Head Head exam: Present: atraumatic, normocephalic - Eye Eye exam: Present: normal appearance - ENT ENT exam: Present: mucous membranes moist - Neck Neck exam: Present: normal inspection, full ROM - Respiratory Respiratory exam: Present: normal lung sounds bilaterally. Absent: respiratory distress, wheezes, rales, rhonchi - Cardiovascular Cardiovascular Exam: Present: regular rate, normal rhythm, normal heart sounds. Absent: rubs, gallop - GI/Abdominal GI/Abdominal exam: Present: soft. Absent: distended, tenderness, guarding, rebound - Extremities Exam Extremities exam: Present: other (Right bicep: AV dialysis access positive thrill positive bruit bandages present) - Back Exam Back exam: Present: normal inspection - Neurological Exam Neurological exam: Present: other (Appears to be sleeping with purposeful movement) - Skin Skin exam: Present: warm, dry, intact, normal color. Absent: rash ED Course Vital Signs 02/21/20 02/21/20 02/21/20 02:53 02:55 04:00 Temperature 98.1 F Pulse Rate 87 87 Respiratory 20 20 20 Rate Blood Pressure Blood Pressure 177/112 181/114 [Left] O2 Sat by Pulse 100 100 99 Oximetry 02/21/20 02/21/20 04:12 06:00 Temperature Pulse Rate 87 85 Respiratory 20 Rate Blood Pressure 181/115 Blood Pressure 177/110 [Left] O2 Sat by Pulse 99 Oximetry ED Medical Decision Making - Lab Data Result diagrams: 02/21/20 01:59 02/21/20 01:59 - Radiology Data Radiology results: report reviewed CT head without contrast: No acute intracranial abnormality AP portable chest: Stable moderate cardiomegaly without CHF - Medical Decision Making Recurrent seizure, labs notable for baseline anemia normal potassium nontherapeutic Dilantin level, according to EMR patient is only taking Keppra I have reassessed patient. She is currently awake and alert. She has mild headache. Otherwise no other physical complaints. She is currently drinking coffee. Discharged home. Critical care attestation.: If time is entered above; I have spent that time in minutes in the direct care of this critically ill patient, excluding procedure time. ED Disposition Clinical Impression: Seizure disorder, Recurrent seizures Disposition: DC- TO HOME OR SELFCARE Is pt being admited?: No Does the pt Need Aspirin: No Condition: Stable
[2020-02-21 06:58] VITALS: BP 177/110
[2020-02-21] MEDS ORDERED: ACETAMINOPHEN 500 MG TAB PO ONE (08:59)
== END 2020-02-21 09:46 | disposition home or self-care (01) ==
LOC: ED 00:10
DX: G40.909 Epilepsy, unspecified, not intractable, without status epilepticus (principal); I11.0 Hypertensive heart disease with heart failure; I50.9 Heart failure, unspecified; M19.90 Unspecified osteoarthritis, unspecified site; E11.9 Type 2 diabetes mellitus without complications; N28.9 Disorder of kidney and ureter, unspecified; J44.9 Chronic obstructive pulmonary disease, unspecified; Z79.899 Other long term (current) drug therapy; Z88.6 Allergy status to analgesic agent; Z88.8 Allergy status to other drugs, medicaments and biological substances
CPT/HCPCS: 36415; 70450; 71045; 80048; 80185; 85027; 93005; 96365; 96366; 96375; 99285; J1953; J2405

== ENCOUNTER 2020-02-24 17:54 | Emergency (ER) | payer MEDICARE ==
[2020-02-24] MEDS ORDERED: MORPHINE 4 MG/1 ML INJ IV ONE (18:22)
--- NOTE | 2020-02-24 18:22 | Emergency Department Report ---
ED Chest Pain HPI - General Chief Complaint: Chest Pain Stated Complaint: PRABHU/CHEST PAIN Time Seen by Provider: 02/24/20 18:07 Source: patient, EMS Mode of arrival: Stretcher Limitations: No Limitations - History of Present Illness Initial Comments: 29-year-old -Danish female presents to the emergency department with a complaint of some left-sided to midsternal chest pain that is been going on since last night and is associated with some shortness of breath. The patient has a past medical history that includes lupus, anemia, seizure disorder, hypertension and end-stage renal disease on hemodialysis on Friday//Friday. The patient did complete her dialysis session this morning. She has not taken anything for symptoms prior to presentation. She is a former smoker but denies any illicit drug use. No recent travel or sick c ontacts at home. She had a negative stress test in February 2019. The patient was admitted for chest pain here in January of this year. She was seen by [facility] cardiology and it appears that they were going to attempt a stress test but they did not have appropriate IV access. As the patient's chest pain had resolved at that point they decided she was safe for discharge from a cardiology standpoint and the patient was supposed to follow-up within 2 weeks. It does not appear that she has done so. Severity scale (0 -10): 10 - Related Data Previous Rx's Medication Instructions Recorded Last Taken Type Epoetin Blair 10,000 Unit [Procrit] 10,000 unit IV ALYSSA PRN vial 11/27/19 Unknown Rx diphenhydrAMINE [Benadryl CAP] 25 mg PO QHS PRN 30 Days #60 11/27/19 Unknown Rx capsule Ibuprofen [Motrin 800 MG tab] 800 mg PO Q8HR PRN #20 tablet 12/25/19 Unknown Rx HYDROcodone/APAP 5-325 [[place] 1 each PO Q6HR PRN #10 tablet 01/13/20 Unknown Rx 5-325 mg TAB] Ondansetron [Zofran Odt] 4 mg PO Q8HR PRN #20 tab.rapdis 01/13/20 Unknown Rx Cyclobenzaprine [Flexeril 10 MG 10 mg PO TID PRN #90 tablet 02/15/20 Unknown Rx TAB] Furosemide [Lasix TAB] 80 mg PO QDAY 30 Days #30 02/15/20 Unknown Rx HYDROmorphone [Dilaudid] 2 mg PO BID #10 tablet 02/15/20 Unknown Rx Hydroxychloroquine [Plaquenil] 200 mg PO QDAY 30 Days #30 02/15/20 Unknown Rx Hydroxychloroquine [Plaquenil] 200 mg PO QDAY 30 Days #30 tablet 02/15/20 Unknown Rx Ipratropium/Albuterol Sulfate 1 ampul IH TIDRT #50 ampul.neb 02/15/20 Unknown Rx [DUONEB *Not for PRN Use*] NIFEdipine XL [Procardia Xl] 60 mg PO Q12HR #30 tablet 02/15/20 Unknown Rx Oxycodone HCl/Acetaminophen 1 each PO TID PRN #14 tablet 02/15/20 Unknown Rx [Percocet 10/325 mg] Pantoprazole [Protonix TAB] 40 mg PO QDAY #30 tablet 02/15/20 Unknown Rx Valsartan [Diovan] 160 mg PO BID #60 tablet 02/15/20 Unknown Rx hydrALAZINE [Apresoline TAB] 100 mg PO TID #90 tab 02/15/20 Unknown Rx labetaloL [Labetalol 200mg TAB] 200 mg PO TID #90 tablet 02/15/20 Unknown Rx levETIRAcetam [Keppra TAB] 1,000 mg PO BID #60 tablet 02/15/20 Unknown Rx levETIRAcetam [Keppra TAB] 500 mg PO BID #60 02/15/20 Unknown Rx levoFLOXacin [Levaquin TAB] 500 mg PO Q48HR #7 tablet 02/15/20 Unknown Rx Allergies Allergy/AdvReac Type Severity Reaction Status Date / Time lisinopril Allergy Swelling Verified 01/20/20 15:43 metoprolol Allergy Unknown Verified 01/20/20 15:43 acetaminophen [From Percocet] AdvReac Itching Verified 02/09/20 07:21 oxycodone [From Percocet] AdvReac Itching Verified 02/09/20 07:22 oxycodone HCl [From Percocet] AdvReac Unknown Verified 01/20/20 15:43 Heart Score - HEART Score History: Slightly suspicious EKG: Normal Age: < 45 Risk factors: 1-2 risk factors Troponin: > 3x normal limit HEART Score: 3 - Critical Actions Critical Actions: 0-3 pts:0.9-1.7%risk of adverse cardiac event.Candidate for discharge ED Review of Systems ROS: Stated complaint: PRABHU/CHEST PAIN Other details as noted in HPI Comment: All other systems reviewed and negative Constitutional: denies: chills, fever Eyes: denies: eye pain, vision change ENT: denies: ear pain, throat pain Respiratory: shortness of breath. denies: cough Cardiovascular: chest pain. denies: palpitations Gastrointestinal: denies: abdominal pain, vomiting Genitourinary: denies: dysuria, discharge Musculoskeletal: denies: back pain, arthralgia Skin: denies: rash, lesions Neurological: denies: headache, weakness ED Past Medical Hx - Past Medical History Hx Hypertension: Yes Hx Congestive Heart Failure: Yes Hx Diabetes: Yes Hx Renal Disease: Yes (HD T,THUR,SAT) Hx Arthritis: Yes Hx Headaches / Migraines: Yes Hx Seizures: Yes Hx Asthma: Yes Hx COPD: Yes Hx HIV: No Additional medical history: Lupus - Surgical History Additional Surgical History: RIGHT ARM graft - Social History Smoking Status: Never Smoker - Medications Home Medications: Home Medications Medication Instructions Recorded Confirmed Last Taken Type Epoetin [place] 10,000 Unit [Procrit] 10,000 unit IV ALYSSA PRN vial 11/27/19 02/12/20 Unknown Rx diphenhydrAMINE [Benadryl CAP] 25 mg PO QHS PRN 30 Days #60 11/27/19 02/12/20 Unknown Rx capsule Ibuprofen [Motrin 800 MG tab] 800 mg PO Q8HR PRN #20 tablet 12/25/19 02/12/20 Unknown Rx HYDROcodone/APAP 5-325 [[place] 1 each PO Q6HR PRN #10 tablet 01/13/20 02/12/20 Unknown Rx 5-325 mg TAB] Ondansetron [Zofran Odt] 4 mg PO Q8HR PRN #20 tab.rapdis 01/13/20 02/12/20 Unknown Rx Cyclobenzaprine [Flexeril 10 MG 10 mg PO TID PRN #90 tablet 02/15/20 Unknown Rx TAB] Furosemide [Lasix TAB] 80 mg PO QDAY 30 Days #30 02/15/20 Unknown Rx HYDROmorphone [Dilaudid] 2 mg PO BID #10 tablet 02/15/20 Unknown Rx Hydroxychloroquine [Plaquenil] 200 mg PO QDAY 30 Days #30 02/15/20 Unknown Rx Hydroxychloroquine [Plaquenil] 200 mg PO QDAY 30 Days #30 tablet 02/15/20 Unknown Rx Ipratropium/Albuterol Sulfate 1 ampul IH TIDRT #50 ampul.neb 02/15/20 Unknown Rx [DUONEB *Not for PRN Use*] NIFEdipine XL [Procardia Xl] 60 mg PO Q12HR #30 tablet 02/15/20 Unknown Rx Oxycodone HCl/Acetaminophen 1 each PO TID PRN #14 tablet 02/15/20 Unknown Rx [Percocet 10/325 mg] Pantoprazole [Protonix TAB] 40 mg PO QDAY #30 tablet 02/15/20 Unknown Rx Valsartan [Diovan] 160 mg PO BID #60 tablet 02/15/20 Unknown Rx hydrALAZINE [Apresoline TAB] 100 mg PO TID #90 tab 02/15/20 Unknown Rx labetaloL [Labetalol 200mg TAB] 200 mg PO TID #90 tablet 02/15/20 Unknown Rx levETIRAcetam [Keppra TAB] 1,000 mg PO BID #60 tablet 02/15/20 Unknown Rx levETIRAcetam [Keppra TAB] 500 mg PO BID #60 02/15/20 Unknown Rx levoFLOXacin [Levaquin TAB] 500 mg PO Q48HR #7 tablet 02/15/20 Unknown Rx ED Physical Exam - General Limitations: No Limitations - Other Other exam information: GENERAL: The patient is well-developed well-nourished. HENT: Normocephalic. Atraumatic. Patient has moist mucous membranes. EYES: Extraocular motions are intact. NECK: Supple. Trachea is midline. CHEST/LUNGS: Clear to auscultation. There is no respiratory distress noted. There is some reproducible chest pain to palpation of the left chest wall without crepitus or deformity. HEART/CARDIOVASCULAR: Regular. There is no tachycardia. There is no murmur. ABDOMEN: Abdomen is soft, nontender. Patient has normal bowel sounds. SKIN: Skin is warm and dry. NEURO: The patient is awake, alert, and oriented. The patient is cooperative. The patient has no focal neurologic deficits. Normal speech. MUSCULOSKELETAL: There is no tenderness or deformity. There is no evidence of acute injury. ED Course Vital Signs 02/24/20 02/24/20 02/24/20 18:10 18:11 18:16 Temperature 99.6 F Pulse Rate 97 H 97 H Respiratory 24 34 H Rate Blood Pressure 177/111 177/111 O2 Sat by Pulse 100 100 100 Oximetry 02/24/20 02/24/20 02/24/20 18:30 18:46 18:49 Temperature Pulse Rate 98 H 98 H Respiratory 35 H 31 H 26 H Rate Blood Pressure 177/111 177/111 O2 Sat by Pulse 98 98 98 Oximetry 02/24/20 02/24/20 02/24/20 19:00 19:16 19:30 Temperature Pulse Rate 100 H 98 H 97 H Respiratory 31 H 17 30 H Rate Blood Pressure 168/110 172/112 174/110 O2 Sat by Pulse 96 97 97 Oximetry 02/24/20 02/24/20 02/24/20 19:46 20:00 20:40 Temperature Pulse Rate 100 H 100 H Respiratory 25 H 23 Rate Blood Pressure 174/110 174/110 175/103 O2 Sat by Pulse 95 97 Oximetry 02/24/20 21:00 Temperature Pulse Rate Respiratory Rate Blood Pressure 154/98 O2 Sat by Pulse Oximetry - EJ/Peripheral Line Neck L Time Out Performed: Yes Indications: nurses unable to establis Skin Cleansed in Sterile Fashion: Yes Size: 22 Dressing Placed: Tegaderm, tape Patient Tolerated Procedure: well LAZARO score - Lazaro Score Age > 65: (0) No Aspirin use within the Past 7 Days: (1) Yes 3 or more CAD Risk Factors: (0) No 2 or more Angina events in past 24 hrs: (1) Yes Known CAD with more than 50% Stenosis: (0) No Elevated Cardiac Markers: (1) Yes ST Deviation Greater than 0.5mm: (0) No LAZARO Score: 3 ED Medical Decision Making - Lab Data Result diagrams: 02/24/20 18:40 02/24/20 18:40 - EKG Data -: EKG Interpreted by Nv EKG shows normal: sinus rhythm, axis, intervals, QRS complexes, ST-T waves (T wave versions to the septal leads) Rate: normal - EKG Data When compared to previous EKG there are: no significant change Interpretation: unchanged when compared t (02/21/20) - Radiology Data Radiology results: image reviewed interpreted by me: Chest x-ray shows some pulmonary vascular congestion. - Medical Decision Making This patient presents to the emergency department with a complaint of some midsternal left-sided chest pain since last night. Chest x-ray did not show any acute process. EKG does not show any morphology consistent with ST elevation VT and is unchanged from previous. Patient's labs shows renal insufficiency consistent with her end-stage renal disease but no hyperkalemia. The patient does have an elevated troponin of 0.294. This is similar to but slightly higher than her previous visit. It is my intention to admit this patient for further evaluation and work-up and the patient has been presented to the hospitalist, Dr. Rijoas. Critical Care Time: No Critical care attestation.: If time is entered above; I have spent that time in minutes in the direct care of this critically ill patient, excluding procedure time. ED Disposition Clinical Impression: Acute chest pain, ESRD (end stage renal disease), Elevated troponin Lupus (systemic lupus erythematosus) Qualifiers: Systemic lupus erythematosus type: unspecified Systemic lupus erythematosus organ involvement: unspecified Qualified Code(s): M32.9 - Systemic lupus erythematosus, unspecified Disposition: -09 OP ADMIT IP TO THIS HOSP Is pt being admited?: Yes Condition: Fair Instructions: Chest Pain (ED) Referrals: PRIMARY CARE, [Primary Care Provider] - 3-5 Days Time of Disposition: 19:21
[2020-02-24 18:49] LABS: Basophils % (Auto) 0.5 % (0.0-1.8); Eosinophils # (Auto) 0.1 K/mm3 (0.0-0.4); Hematocrit 26.1 % (30.3-42.9); Hemoglobin 8.4 gm/dl (10.1-14.3); Lymphocytes # (Auto) 0.5 K/mm3 (1.2-5.4); Lymphocytes % (Auto) 9.2 % (13.4-35.0); Mean Corpuscular HGB Conc 32 % (30-34); Mean Corpuscular Volume 91 fl (79-97); Monocytes # (Auto) 0.5 K/mm3 (0.0-0.8); Monocytes % (Auto) 8.9 % (0.0-7.3); Platelet Count 166 K/mm3 (140-440); Red Blood Count 2.87 M/mm3 (3.65-5.03); Red Cell Distribution Width 17.5 % (13.2-15.2)
[2020-02-24 19:07] LABS: Calcium 8.8 mg/dL (8.4-10.2)
[2020-02-24 19:25] LABS: Chol/HDL Ratio 2.04 %
--- NOTE | 2020-02-24 19:33 | XRay Report ---
CHEST 1 VIEW INDICATION: CP. COMPARISON: 3 days prior FINDINGS: SUPPORT DEVICES: None. HEART: Stable cardiomegaly. LUNGS/PLEURA: Persistent mild central vascular congestion although edema has improved. ADDITIONAL FINDINGS: None. IMPRESSION: 1. Slightly improved exam. Signer Name: Gaurang Reyes MD Signed: 02/24/2020 7:28 PM Workstation Name: [id number]
[2020-02-24] MEDS ORDERED: hydrALAZINE 20 MG/1 ML INJ IV ONE (20:02)
--- NOTE | 2020-02-24 20:17 | Event Note ---
Date: 02/24/20 Patient has a chest pain which is nonspecific Patient's troponin is elevated Reviewed all her previous admissions Patient has troponins chronically elevated secondary to her end-stage renal disease Patient is stable for discharge patient can get Stress test as an outpatient.
[2020-02-24 21:07] VITALS: BP 154/98
== END 2020-02-24 21:25 | disposition admitted as inpatient to this hospital (09) ==
LOC: ED 17:54
DX: E13.22 Other specified diabetes mellitus with diabetic chronic kidney disease (principal); I13.2 Hypertensive heart and chronic kidney disease with heart failure and with stage 5 chronic kidney disease, or end stage renal disease; I50.9 Heart failure, unspecified; N18.6 End stage renal disease; J44.9 Chronic obstructive pulmonary disease, unspecified; M13.88 Other specified arthritis, other site; G43.909 Migraine, unspecified, not intractable, without status migrainosus; Z99.2 Dependence on renal dialysis; Z88.4 Allergy status to anesthetic agent; Z88.6 Allergy status to analgesic agent; Z88.1 Allergy status to other antibiotic agents
CPT/HCPCS: 36415; 36569; 71045; 80048; 80061; 84484; 85025; 93005; 96374; 96375; 99285; J0360; J2270

== ENCOUNTER 2020-03-04 04:56 | Inpatient (IN) | payer MEDICARE ==
[2020-03-04] MEDS ORDERED: ALBUTEROL 2.5 MG/3 ML NEBU IH ONE (05:31)
[2020-03-04] MEDS ORDERED: IPRATROPIUM 0.02% NEBU 2.5 ML IH ONE (05:31)
[2020-03-04] MEDS ORDERED: dexAMETHasone 20 MG/5 ML VIAL IV ONE (05:32)
[2020-03-04] MEDS ORDERED: NITROGLYCERIN 2% OINT 1 GM TP ONE (05:33)
--- NOTE | 2020-03-04 05:35 | Emergency Department Report ---
Blank Doc - Documentation Documentation: Patient presents with wheezing and shortness of breath. Extensive history which includes asthma lupus, CHF, and end-stage renal disease on dialysis. Frequent hospital visits on record. Albuterol 5, Atrovent 0.5, Decadron 10 mg IV, and Nitropaste for hypertension initiated. CBC, CMP, troponin, ECG, chest x-ray, BNP ordered Patient to be evaluated by oncoming physician
[2020-03-04] MEDS ORDERED: hydrALAZINE 20 MG/1 ML INJ IV ONE ×2 (06:27→08:36)
[2020-03-04 06:43] LABS: Basophils % (Auto) 0.7 % (0.0-1.8); Eosinophils # (Auto) 0.1 K/mm3 (0.0-0.4); Eosinophils % (Auto) 2.2 % (0.0-4.3); Hematocrit 27.2 % (30.3-42.9); Hemoglobin 8.9 gm/dl (10.1-14.3); Lymphocytes # (Auto) 0.9 K/mm3 (1.2-5.4); Lymphocytes % (Auto) 24.2 % (13.4-35.0); Mean Corpuscular HGB Conc 33 % (30-34); Mean Corpuscular Volume 93 fl (79-97); Monocytes # (Auto) 0.4 K/mm3 (0.0-0.8); Monocytes % (Auto) 11.2 % (0.0-7.3); Platelet Count 216 K/mm3 (140-440); Red Blood Count 2.94 M/mm3 (3.65-5.03); Red Cell Distribution Width 17.7 % (13.2-15.2)
[2020-03-04 06:56] LABS: INR 1.19 (0.87-1.13)
[2020-03-04 06:57] LABS: Partial Thromboplastin Time 34.8 Sec. (24.2-36.6)
--- NOTE | 2020-03-04 07:09 | XRay Report ---
CHEST 1 VIEW INDICATION: sob. COMPARISON: 02/24/2020 FINDINGS: Support devices: None. Heart: Enlarged, unchanged Lungs/Pleura: Mild interstitial opacities are noted. Blunting of the costophrenic angles may be due t o small effusions or pleural thickening, similar to the prior. IMPRESSION: 1. Cardiomegaly with increased interstitial markings suggestive of interstitial pulmonary edema. Signer Name: Kamari Raymond MD Signed: 03/04/2020 7:04 AM Workstation Name: [email or web address]
[2020-03-04 07:43] LABS: Chol/HDL Ratio 1.97 %
[2020-03-04 07:47] LABS: C-Reactive Protein 4.6 mg/dL (0.00-1.30)
[2020-03-04 07:48] LABS: Albumin 3.4 g/dL (3.9-5); BUN/Creatinine Ratio 3; Blood Urea Nitrogen 22 mg/dL (7-17); Calcium 9.3 mg/dL (8.4-10.2); Hemolysis Index 0
[2020-03-04 08:02] LABS: Alanine Aminotransferase < 5 units/L (7-56); Bilirubin,Direct < 0.2 mg/dL (0-0.2)
[2020-03-04] MEDS ORDERED: HYDROcodone/ACETAMINOPHEN 5-325 MG TAB PO ONE (09:07)
[2020-03-04] MEDS ORDERED: SODIUM CHLORIDE 0.9% 100 ML IV PRN (09:21)
--- NOTE | 2020-03-04 09:30 | History and Physical Report ---
History of Present Illness Date of examination: 03/04/20 Date of admission: 03/04/20 Chief complaint: Shortness of breath and generalized body pain History of present illness: 30-year old -[place] female with history of end-stage renal disease hypertension and lupus and seizure disorder. Patient also has multiple hospitalization at our facility. Presents to the ED with complaint of shortness of breath and cough nonproductive. Patient reports that she tried some nebulizers at home but did not improve. She also reports generalized body pain. She states that this is related to her lupus. She does have a history of noncompliance with her medications and again stated that she was unable to take her medication but did go for her dialysis. She appears very lethargic. Blood pressure again as previous presentation was significantly elevated. She denies any nausea vomiting diarrhea. She denies any fever although she reports some chills the day before presenting. In the ED there was a concern for possible PUI patient is being admitted for this and also management of high blood pressure and dialysis. - Past Medical History Previous Medical History?: Yes Hx Hypertension: Yes Hx Congestive Heart Failure: Yes Hx Diabetes: Yes Hx Renal Disease: Yes (HD T,THUR,SAT) Hx Arthritis: Yes Hx Headaches / Migraines: Yes Hx Seizures: Yes Hx Asthma: Yes Hx COPD: Yes Additional medical history: Lupus - Surgical History Past Medical History: dialysis, hypertension, other (Lupus and depression) Past Surgical History: Other (History of creation of AV fistula) Social history: no significant social history Family history: no significant family history - Social History Smoking Status: Former Smoker Substance Use Type: None ROS: Apart from stated in HPI 14 point system has been reviewed with the patient otherwise negative Medications and Allergies Allergies Allergy/AdvReac Type Severity Reaction Status Date / Time lisinopril Allergy Swelling Verified 01/20/20 15:43 metoprolol Allergy Unknown Verified 01/20/20 15:43 acetaminophen [From Percocet] AdvReac Itching Verified 02/09/20 07:21 oxycodone [From Percocet] AdvReac Itching Verified 02/09/20 07:22 oxycodone HCl [From Percocet] AdvReac Unknown Verified 01/20/20 15:43 Home Medications Medication Instructions Recorded Confirmed Last Taken Type Epoetin [place] 10,000 Unit [Procrit] 10,000 unit IV ALYSSA PRN vial 11/27/19 02/12/20 Unknown Rx diphenhydrAMINE [Benadryl CAP] 25 mg PO QHS PRN 30 Days #60 11/27/19 02/12/20 Unknown Rx capsule Ibuprofen [Motrin 800 MG tab] 800 mg PO Q8HR PRN #20 tablet 12/25/19 02/12/20 Unknown Rx HYDROcodone/APAP 5-325 [[place] 1 each PO Q6HR PRN #10 tablet 01/13/20 02/12/20 U nknown Rx 5-325 mg TAB] Ondansetron [Zofran Odt] 4 mg PO Q8HR PRN #20 tab.rapdis 01/13/20 02/12/20 Unknown Rx Cyclobenzaprine [Flexeril 10 MG 10 mg PO TID PRN #90 tablet 02/15/20 Unknown Rx TAB] Furosemide [Lasix TAB] 80 mg PO QDAY 30 Days #30 02/15/20 Unknown Rx HYDROmorphone [Dilaudid] 2 mg PO BID #10 tablet 02/15/20 Unknown Rx Hydroxychloroquine [Plaquenil] 200 mg PO QDAY 30 Days #30 02/15/20 Unknown Rx Hydroxychloroquine [Plaquenil] 200 mg PO QDAY 30 Days #30 tablet 02/15/20 Unknown Rx Ipratropium/Albuterol Sulfate 1 ampul IH TIDRT #50 ampul.neb 02/15/20 Unknown Rx [DUONEB *Not for PRN Use*] NIFEdipine XL [Procardia Xl] 60 mg PO Q12HR #30 tablet 02/15/20 Unknown Rx Oxycodone HCl/Acetaminophen 1 each PO TID PRN #14 tablet 02/15/20 Unknown Rx [Percocet 10/325 mg] Pantoprazole [Protonix TAB] 40 mg PO QDAY #30 tablet 02/15/20 Unknown Rx Valsartan [Diovan] 160 mg PO BID #60 tablet 02/15/20 Unknown Rx hydrALAZINE [Apresoline TAB] 100 mg PO TID #90 tab 02/15/20 Unknown Rx labetaloL [Labetalol 200mg TAB] 200 mg PO TID #90 tablet 02/15/20 Unknown Rx levETIRAcetam [Keppra TAB] 1,000 mg PO BID #60 tablet 02/15/20 Unknown Rx levETIRAcetam [Keppra TAB] 500 mg PO BID #60 02/15/20 Unknown Rx levoFLOXacin [Levaquin TAB] 500 mg PO Q48HR #7 tablet 02/15/20 Unknown Rx Active Meds: Active Medications Sodium Chloride (Nacl 0.9%) 100 mls @ 999 mls/hr IV ALYSSA PRN PRN Reason: Hypotension Exam - Physical Exam Narrative exam: VITAL SIGNS: Reviewed. GENERAL: The patient appears normally developed, chronically ill-appearing otherwise stable vital signs as documented. HEAD: No signs of head trauma. EYES: Pupils are equal. Extraocular motions intact. EARS: Hearing grossly intact. MOUTH: Oropharynx is normal. NECK: No adenopathy, no JVD. CHEST: Chest with clear breath sounds bilaterally. No wheezes, rales, or rhonchi. CARDIAC: Regular rate and rhythm. S1 and S2, without murmurs, gallops, or rubs. VASCULAR: Right upper extremity AV fistulas multiple with indentation and palpable thrill no Edema. Peripheral pulses normal and equal in all extremities. ABDOMEN: Soft, non tender and non distended. No rebound or guarding, and no masses palpated. Bowel Sounds normal. MUSCULOSKELETAL: Good range of motion of all major joints. Extremities without clubbing, cyanosis or edema. NEUROLOGIC EXAM: Alert and oriented x 3 No focal sensory or strength deficits. Speech normal. Follows commands. PSYCHIATRIC: Mood normal. SKIN: detial exam as documented in skin assessment - Constitutional Vitals: Temp Pulse Resp BP Pulse Ox 98.7 F 104 H 22 171/104 98 03/04/20 05:23 03/04/20 09:15 03/04/20 06:28 03/04/20 09:15 03/04/20 05:30 HEART Score - HEART Score Troponin: Troponin T 0.287 ng/mL (0.00-0.029) H* 03/04/20 05:37 Results - Labs CBC & Chem 7: 03/04/20 05:37 03/04/20 06:30 Labs: Laboratory Last Values WBC 3.7 K/mm3 (4.5-11.0) L 03/04/20 05:37 RBC 2.94 M/mm3 (3.65-5.03) L 03/04/20 05:37 Hgb 8.9 gm/dl (10.1-14.3) L 03/04/20 05:37 Hct 27.2 % (30.3-42.9) L 03/04/20 05:37 MCV 93 fl (79-97) 03/04/20 05:37 MCH 30 pg (28-32) 03/04/20 05:37 MCHC 33 % (30-34) 03/04/20 05:37 RDW 17.7 % (13.2-15.2) H 03/04/20 05:37 Plt Count 216 K/mm3 (140-440) 03/04/20 05:37 Lymph % (Auto) 24.2 % (13.4-35.0) 03/04/20 05:37 [place] % (Auto) 11.2 % (0.0-7.3) H 03/04/20 05:37 Eos % (Auto) 2.2 % (0.0-4.3) 03/04/20 05:37 Baso % (Auto) 0.7 % (0.0-1.8) 03/04/20 05:37 Lymph # 0.9 K/mm3 (1.2-5.4) L 03/04/20 05:37 [place] # 0.4 K/mm3 (0.0-0.8) 03/04/20 05:37 Eos # 0.1 K/mm3 (0.0-0.4) 03/04/20 05:37 Baso # 0.0 K/mm3 (0.0-0.1) 03/04/20 05:37 Seg Neutrophils % 61.7 % (40.0-70.0) 03/04/20 05:37 Seg Neutrophils # 2.3 K/mm3 (1.8-7.7) 03/04/20 05:37 PT 15.2 Sec. (12.2-14.9) H 03/04/20 05:37 INR 1.19 (0.87-1.13) H 03/04/20 05:37 APTT 34.8 Sec. (24.2-36.6) 03/04/20 05:37 D-Dimer 1135.62 ng/mlDDU (0-234) H 03/04/20 05:37 Sodium 134 mmol/L (137-145) L 03/04/20 06:24 Potassium 4.2 mmol/L (3.6-5.0) 03/04/20 06:24 Chloride 96.6 mmol/L (98-107) L 03/04/20 06:24 Carbon Dioxide 24 mmol/L (22-30) 03/04/20 06:24 Anion Gap 18 mmol/L 03/04/20 06:24 BUN 22 mg/dL (7-17) H 03/04/20 06:24 Creatinine 6.4 mg/dL (0.7-1.2) H 03/04/20 06:24 Estimated GFR 9 ml/min 03/04/20 06:24 BUN/Creatinine Ratio 3 % 03/04/20 06:24 Glucose 73 mg/dL (65-100) 03/04/20 06:30 Calcium 9.3 mg/dL (8.4-10.2) 03/04/20 06:24 Phosphorus 4.40 mg/dL (2.5-4.5) 03/04/20 06:24 Ferritin 779.5 ng/mL (13.0-400.0) H 03/04/20 05:37 Total Bilirubin 0.40 mg/dL (0.1-1.2) 03/04/20 06:24 Direct Bilirubin < 0.2 mg/dL (0-0.2) 03/04/20 06:24 Indirect Bilirubin 0.2 mg/dL 03/04/20 06:24 AST 12 units/L (5-40) 03/04/20 06:24 ALT < 5 units/L (7-56) L 03/04/20 06:24 Alkaline Phosphatase 117 units/L (35-129) 03/04/20 06:24 Lactate Dehydrogenase 128 units/L (91-180) 03/04/20 06:30 Troponin T 0.287 ng/mL (0.00-0.029) H* 03/04/20 05:37 C-Reactive Protein 4.60 mg/dL (0.00-1.30) H 03/04/20 06:30 NT-Pro-B Natriuret Pep 12350 pg/mL (0-450) H 03/04/20 05:37 Total Protein 8.2 g/dL (6.3-8.2) 06/27/20 06:24 Albumin 3.4 g/dL (3.9-5) L 03/04/20 06:24 Albumin/Globulin Ratio 0.7 % 03/04/20 06:24 Triglycerides 59 mg/dL (2-149) 03/04/20 05:37 Cholesterol 83 mg/dL (50-199) 03/04/20 05:37 LDL Cholesterol Direct 35 mg/dL (50-130) L 03/04/20 05:37 HDL Cholesterol 42 mg/dL (40-59) 03/04/20 05:37 Cholesterol/HDL Ratio 1.97 % 03/04/20 05:37 HCG, Qual Negative (Negative) 03/04/20 05:37 Assessment and Plan Assessment and plan: 30-year old -[place] female with history of end-stage renal disease hypertension and lupus and seizure disorder. Patient also has multiple hospitalization at our facility. Presents to the ED with complaint of shortness of breath and cough nonproductive. Patient reports that she tried some nebulizers at home but did not improve. She also reports generalized body pain. She states that this is related to her lupus. She does have a history of noncompliance with her medications and again stated that she was unable to take her medication but did go for her dialysis. She appears very lethargic. Blood pressure again as previous presentation was significantly elevated. She denies any nausea vomiting diarrhea. She denies any fever although she reports some chills the day before presenting. In the ED there was a concern for possible PUI patient is being admitted for this and also management of high blood pressure and dialysis. CXR: IMPRESSION: 1. Cardiomegaly with increased interstitial markings suggestive of interstitial pulmonary edema. - Patient Problems (1) Hypertensive urgency, malignant Current Visit: Yes Status: Acute Plan to address problem: Patient started on hydralazine milligrams 3 times a day Resume home medication Hydralazine 10 mg every 3 as needed for systolic more than 160 and diastolic more than 100 (2) End stage renal disease Current Visit: Yes Status: Chronic Plan to address problem: Continue dialysis as per scheduled (3) Seizure disorder Current Visit: Yes Status: Chronic Plan to address problem: Continue antiepileptic drugs (4) SLE (systemic lupus erythematosus) Current Visit: Yes Status: Chronic Qualifiers: Systemic lupus erythematosus type: unspecified Plan to address problem: Continue Plaquenil (5) Anemia Current Visit: Yes Status: Chronic Qualifiers: Anemia type: unspecified type Qualified Code(s): D64.9 - Anemia, unspecified Plan to address problem: Continue Epogen as per schedule (6) R/O COVID Current Visit: Yes Status: Acute Plan to address problem: ID consult. While this has been initiated by ER I think this is less likely in this patient as she comes with the same presentation and was just recently in the hospital. Nevertheless we will follow-up with the result. (7) Acute gastritis Current Visit: Yes Status: Acute Qualifiers: Gastritis type: unspecified gastritis Plan to address problem: IV protonix (8) Noncompliance with medication regimen Current Visit: No Status: Chronic Plan to address problem: COunselled (9) Elevated troponin I level Current Visit: Yes Status: Chronic Plan to address problem: Sec to ESRD DVT and GI prophylaxis Patient unfortunately got irate as she was being ruled out for COVID and left the hospital. Advance Directives: Yes Plan of care discussed with patient/family: Yes
[2020-03-04] MEDS ORDERED: DEXTROSE 50% IN WATER (25GM) 50 ML SYRINGE IV PRN (09:31)
[2020-03-04] MEDS ORDERED: METOCLOPRAMIDE 10 MG/2 ML INJ IV PRN (09:31)
[2020-03-04] MEDS ORDERED: ACETAMINOPHEN 325 MG TAB PO PRN (09:31)
[2020-03-04] MEDS ORDERED: NALOXONE 0.4 MG/1 ML INJ IV PRN (09:31)
[2020-03-04] MEDS ORDERED: ONDANSETRON 4 MG/2 ML INJ IV PRN (09:31)
[2020-03-04] MEDS ORDERED: oxyCODONE /ACETAMINOPHEN 5-325MG TAB PO PRN (09:31)
[2020-03-04] MEDS ORDERED: ALBUTEROL 2.5 MG/3 ML NEBU IH PRN (09:31)
[2020-03-04 09:59] VITALS: BP 165/99
[2020-03-04] MEDS ORDERED: SENNOSIDES 8.6 MG TAB PO SCH (10:00)
--- NOTE | 2020-03-04 10:20 | Emergency Department Report ---
ED General Adult HPI - General Chief complaint: Chest Pain Stated complaint: PRABHU CHEST PAIN Time Seen by Provider: 03/04/20 06:23 Source: patient Mode of arrival: Ambulatory Limitations: No Limitations - History of Present Illness Initial comments: This is a 30-year-old female on dialysis with a history of lupus well-known to this facility. Her last admission was early February: - Patient Problems (1) Hypertensive urgency Current Visit: Yes Status: Acute Plan to address problem: Adjust BP meds Clonidine to be stopped.Causing rebound HTN Added Hydralazine (2) Bronchitis Current Visit: Yes Status: Acute Plan to address problem: CXR repeat Started on IV Levaquin (3) Acute gastritis Current Visit: Yes Status: Acute Qualifiers: Gastritis type: unspecified gastritis Plan to address problem: IV protonix (4) Atypical chest pain Current Visit: No Status: Acute Plan to address problem: ec to gastritis No workup (5) ESRD needing dialysis Current Visit: No Status: Chronic Plan to address problem: Nephrology consulted (6) Noncompliance with medication regimen Current Visit: No Status: Chronic Plan to address problem: Ounselled (7) ESRD (end stage renal disease) on dialysis Current Visit: No Status: Chronic Plan to address problem: Cont HD as per schedule (8) Lupus (systemic lupus erythematosus) Current Visit: No Status: Chronic Qualifiers: Systemic lupus erythematosus type: unspecified Systemic lupus erythematosus organ involvement: unspecified Qualified Code(s): M32.9 - Systemic lupus erythematosus, unspecified Plan to address problem: Cont Plaquenil (9) Elevated troponin I level Current Visit: Yes Status: Chronic Plan to address problem: Sec to ESRD Her last cardiology consultation in September 2019 indicated: Assessment and Plan CE elevation appears c/w NSTEMI type II. ECG with NAF. Lexiscan MPI stress test was attempted, however, pt did not have adequate IV access and IV team was unable to obtain IV. Optimize anti-ischemic regimen. Given resolution of chest pain and history of normal LHC in 02/2018 and negative lexiscan MPI stress test in 02/2019, pt may discharge from cardiology standpoint and can consider stress testing as OP if chest pain reoccurs despite optimal medical therapy. Recommend pt follow up in our office with Dr. Hardin within 2 weeks of discharge ([phone]). The patient has been seen in conjunction with Dr. Hardin who agrees with the assessment and plan of care. - Patient Problems (1) Chest pain Current Visit: Yes Status: Acute Qualifiers: Chest pain type: unspecified Qualified Code(s): R07.9 - Chest pain, unspecified (2) NSTEMI (non-ST elevated myocardial infarction) Current Visit: Yes Status: Acute Plan to address problem: type II (3) ESRD (end stage renal disease) on dialysis Current Visit: Yes Status: Chronic (4) SLE (systemic lupus erythematosus) Current Visit: Yes Status: Chronic Qualifiers: Systemic lupus erythematosus type: unspecified Systemic lupus erythematosus organ involvement: unspecified Qualified Code(s): M32.9 - Systemic lupus erythematosus, unspecified (5) Hypertension Current Visit: Yes Status: Chronic (6) Normal coronary arteries Current Visit: Yes Status: Chronic Thus, apparently she has known to have normal coronary arteries. However in September she was diagnosed with a non-STEMI. Other records indicate that she does have a persistently elevated troponin. The patient presents to the emergency department this time stating that she has had shortness of breath. She also complains of cough largely nonproductive. She states that she is not treated with home nebs. Prior to my arrival a nebulized bronchodilator treatment was ordered. I did not encounter the patient have any wheezing. She states that she has had some chest pain. She further explains that the chest pain is non-frequent and thought to be related to her lupus. She is a poor historian. She has not been taking her temperature. She has a history of noncompliance and did not take her blood pressure medicine this morning. She states that her last dialysis was . Thus she is due for dialysis today. -: Gradual, days(s) Location: chest Radiation: non-radiation Severity scale (0 -10): 0 Quality: sharp Consistency: intermittent Improves with: none Worsens with: none Associated Symptoms: chest pain, cough, shortness of breath Treatments Prior to Arrival: none - Related Data Previous Rx's Medication Instructions Recorded Last Taken Type Epoetin Blair 10,000 Unit [Procrit] 10,000 unit IV ALYSSA PRN vial 11/27/19 Unknown Rx diphenhydrAMINE [Benadryl CAP] 25 mg PO QHS PRN 30 Days #60 11/27/19 Unknown Rx capsule Ibuprofen [Motrin 800 MG tab] 800 mg PO Q8HR PRN #20 tablet 12/25/19 Unknown Rx HYDROcodone/APAP 5-325 [[place] 1 each PO Q6HR PRN #10 tablet 01/13/20 Unknown Rx 5-325 mg TAB] Ondansetron [Zofran Odt] 4 mg PO Q8HR PRN #20 tab.rapdis 01/13/20 Unknown Rx Cyclobenzaprine [Flexeril 10 MG 10 mg PO TID PRN #90 tablet 02/15/20 Unknown Rx TAB] Furosemide [Lasix TAB] 80 mg PO QDAY 30 Days #30 02/15/20 Unknown Rx HYDROmorphone [Dilaudid] 2 mg PO BID #10 tablet 02/15/20 Unknown Rx Hydroxychloroquine [Plaquenil] 200 mg PO QDAY 30 Days #30 02/15/20 Unknown Rx Hydroxychloroquine [Plaquenil] 200 mg PO QDAY 30 Days #30 tablet 02/15/20 Unknown Rx Ipratropium/Albuterol Sulfate 1 ampul IH TIDRT #50 ampul.neb 02/15/20 Unknown Rx [DUONEB *Not for PRN Use*] NIFEdipine XL [Procardia Xl] 60 mg PO Q12HR #30 tablet 02/15/20 Unknown Rx Oxycodone HCl/Acetaminophen 1 each PO TID PRN #14 tablet 02/15/20 Unknown Rx [Percocet 10/325 mg] Pantoprazole [Protonix TAB] 40 mg PO QDAY #30 tablet 02/15/20 Unknown Rx Valsartan [Diovan] 160 mg PO BID #60 tablet 02/15/20 Unknown Rx hydrALAZINE [Apresoline TAB] 100 mg PO TID #90 tab 02/15/20 Unknown Rx labetaloL [Labetalol 200mg TAB] 200 mg PO TID #90 tablet 02/15/20 Unknown Rx levETIRAcetam [Keppra TAB] 1,000 mg PO BID #60 tablet 02/15/20 Unknown Rx levETIRAcetam [Keppra TAB] 500 mg PO BID #60 02/15/20 Unknown Rx levoFLOXacin [Levaquin TAB] 500 mg PO Q48HR #7 tablet 02/15/20 Unknown Rx Allergies Allergy/AdvReac Type Severity Reaction Status Date / Time lisinopril Allergy Swelling Verified 01/20/20 15:43 metoprolol Allergy Unknown Verified 01/20/20 15:43 acetaminophen [From Percocet] AdvReac Itching Verified 02/09/20 07:21 oxycodone [From Percocet] AdvReac Itching Verified 02/09/20 07:22 oxycodone HCl [From Percocet] AdvReac Unknown Verified 01/20/20 15:43 ED Review of Systems ROS: Stated complaint: PRABHU CHEST PAIN Other details as noted in HPI Constitutional: denies: chills, fever Eyes: denies: eye pain, eye discharge, vision change ENT: denies: ear pain, throat pain Respiratory: cough, shortness of breath. denies: wheezing Cardiovascular: chest pain. denies: palpitations Endocrine: no symptoms reported Gastrointestinal: denies: abdominal pain, nausea, diarrhea Genitourinary: denies: urgency, dysuria, discharge Musculoskeletal: denies: back pain, joint swelling, arthralgia Skin: denies: rash, lesions Neurological: denies: headache, weakness, paresthesias Psychiatric: denies: anxiety, depression Hematological/Lymphatic: denies: easy bleeding, easy bruising ED Past Medical Hx - Past Medical History Previous Medical History?: Yes Hx Hypertension: Yes Hx Congestive Heart Failure: Yes Hx Diabetes: Yes Hx Renal Disease: Yes (HD T,THUR,SAT) Hx Arthritis: Yes Hx Headaches / Migraines: Yes Hx Seizures: Yes Hx Asthma: Yes Hx COPD: Yes Hx HIV: No Additional medical history: Lupus - Surgical History Additional Surgical History: RIGHT ARM graft - Social History Smoking Status: Never Smoker Substance Use Type: None - Medications Home Medications: Home Medications Medication Instructions Recorded Confirmed Last Taken Type Epoetin Blair 10,000 Unit [Procrit] 10,000 unit IV ALYSSA PRN vial 11/27/19 02/12/20 Unknown Rx diphenhydrAMINE [Benadryl CAP] 25 mg PO QHS PRN 30 Days #60 11/27/19 02/12/20 Unknown Rx capsule Ibuprofen [Motrin 800 MG tab] 800 mg PO Q8HR PRN #20 tablet 12/25/19 02/12/20 Unknown Rx HYDROcodone/APAP 5-325 [[place] 1 each PO Q6HR PRN #10 tablet 01/13/20 02/12/20 Unknown Rx 5-325 mg TAB] Ondansetron [Zofran Odt] 4 mg PO Q8HR PRN #20 tab.rapdis 01/13/20 02/12/20 Unknown Rx Cyclobenzaprine [Flexeril 10 MG 10 mg PO TID PRN #90 tablet 02/15/20 Unknown Rx TAB] Furosemide [Lasix TAB] 80 mg PO QDAY 30 Days #30 02/15/20 Unknown Rx HYDROmorphone [Dilaudid] 2 mg PO BID #10 tablet 02/15/20 Unknown Rx Hydroxychloroquine [Plaquenil] 200 mg PO QDAY 30 Days #30 02/15/20 Unknown Rx Hydroxychloroquine [Plaquenil] 200 mg PO QDAY 30 Days #30 tablet 02/15/20 Unknown Rx Ipratropium/Albuterol Sulfate 1 ampul IH TIDRT #50 ampul.neb 02/15/20 Unknown Rx [DUONEB *Not for PRN Use*] NIFEdipine XL [Procardia Xl] 60 mg PO Q12HR #30 tablet 02/15/20 Unknown Rx Oxycodone HCl/Acetaminophen 1 each PO TID PRN #14 tablet 02/15/20 Unknown Rx [Percocet 10/325 mg] Pantoprazole [Protonix TAB] 40 mg PO QDAY #30 tablet 02/15/20 Unknown Rx Valsartan [Diovan] 160 mg PO BID #60 tablet 02/15/20 Unknown Rx hydrALAZINE [Apresoline TAB] 100 mg PO TID #90 tab 02/15/20 Unknown Rx labetaloL [Labetalol 200mg TAB] 200 mg PO TID #90 tablet 02/15/20 Unknown Rx levETIRAcetam [Keppra TAB] 1,000 mg PO BID #60 tablet 02/15/20 Unknown Rx levETIRAcetam [Keppra TAB] 500 mg PO BID #60 02/15/20 Unknown Rx levoFLOXacin [Levaquin TAB] 500 mg PO Q48HR #7 tablet 02/15/20 Unknown Rx ED Physical Exam - General Limitations: Physical Limitation General appearance: alert, other (Tachypneic) - Head Head exam: Present: atraumatic, normocephalic - Eye Eye exam: Present: normal appearance. Absent: scleral icterus - ENT ENT exam: Present: mucous membranes moist - Neck Neck exam: Present: normal inspection - Respiratory Respiratory exam: Present: other (Tachypneic). Absent: respiratory distress (No accessory muscle use. No increased work of breathing.), wheezes - Cardiovascular Cardiovascular Exam: Present: normal rhythm, tachycardia. Absent: systolic murmur, diastolic murmur, rubs, gallop - GI/Abdominal GI/Abdominal exam: Present: soft, normal bowel sounds. Absent: distended, tenderness, guarding, rebound - Extremities Exam Extremities exam: Absent: calf tenderness - Back Exam Back exam: Present: normal inspection - Neurological Exam Neurological exam: Present: alert, oriented X3, CN II-XII intact. Absent: motor sensory deficit - Psychiatric Psychiatric exam: Present: normal mood, flat affect - Skin Skin exam: Present: warm, dry, intact, normal color. Absent: rash ED Course Vital Signs 03/04/20 03/04/20 03/04/20 05:23 05:30 06:28 Temperature 98.7 F Pulse Rate 104 H Pulse Rate [ 102 H Bilateral] Respiratory 28 H 18 Rate Respiratory 22 Rate [Bilateral ] Blood Pressure Blood Pressure 182/124 [Left] O2 Sat by Pulse 98 98 Oximetry 03/04/20 03/04/20 03/04/20 07:30 07:39 09:15 Temperature Pulse Rate 102 H 104 H 104 H Pulse Rate [ Bilateral] Respiratory Rate Respiratory Rate [Bilateral ] Blood Pressure 187/120 182/124 171/104 Blood Pressure [Left] O2 Sat by Pulse Oximetry 03/04/20 09:58 Temperature Pulse Rate 99 H Pulse Rate [ Bilateral] Respiratory 24 Rate Respiratory Rate [Bilateral ] Blood Pressure Blood Pressure 165/99 [Left] O2 Sat by Pulse 96 Oximetry - Reevaluation(s) Reevaluation #1: Patient's hypertension was addressed with topical nitrates and hydralazine. Her chest x-ray was consistent with pulmonary edema. I thought it judicious to work her up for a COVID as well. There were several positive indicators. The PCR is yet pending. Patient has been admitted to the hospitalist service for further care and evaluation. I spoke to Dr. Hardin the municipal services manager who stated that he would have her dialyzed today. 03/04/20 10:30 ED Medical Decision Making - Lab Data Result diagrams: 03/04/20 05:37 03/04/20 06:30 Laboratory Results - last 24 hr 03/04/20 03/04/20 03/04/20 05:37 05:37 05:37 WBC 3.7 L RBC 2.94 L Hgb 8.9 L Hct 27.2 L MCV 93 MCH 30 MCHC 33 RDW 17.7 H Plt Count 216 Lymph % (Auto) 24.2 [place] % (Auto) 11.2 H Eos % (Auto) 2.2 Baso % (Auto) 0.7 Lymph # 0.9 L [place] # 0.4 Eos # 0.1 Baso # 0.0 Seg Neutrophils % 61.7 Seg Neutrophils # 2.3 PT 15.2 H INR 1.19 H APTT 34.8 D-Dimer 1135.62 H Sodium Cancelled Potassium Cancelled Chloride Cancelled Carbon Dioxide Cancelled Anion Gap Cancelled BUN Cancelled Creatinine Cancelled Estimated GFR Cancelled BUN/Creatinine Ratio Cancelled Glucose Cancelled Calcium Cancelled Phosphorus Ferritin Total Bilirubin Cancelled Direct Bilirubin Indirect Bilirubin AST Cancelled ALT Cancelled Alkaline Phosphatase Cancelled Lactate Dehydrogenase Troponin T 0.287 H* C-Reactive Protein NT-Pro-B Natriuret Pep Total Protein Cancelled Albumin Cancelled Albumin/Globulin Ratio Cancelled Triglycerides 59 Cholesterol 83 LDL Cholesterol Direct 35 L HDL Cholesterol 42 Cholesterol/HDL Ratio 1.97 HCG, Qual 03/04/20 03/04/20 03/04/20 05:37 05:37 05:37 WBC RBC Hgb Hct MCV MCH MCHC RDW Plt Count Lymph % (Auto) [place] % (Auto) Eos % (Auto) Baso % (Auto) Lymph # [place] # Eos # Baso # Seg Neutrophils % Seg Neutrophils # PT INR APTT D-Dimer Sodium Potassium Chloride Carbon Dioxide Anion Gap BUN Creatinine Estimated GFR BUN/Creatinine Ratio Glucose Calcium Phosphorus Ferritin 779.5 H Total Bilirubin Direct Bilirubin Indirect Bilirubin AST ALT Alkaline Phosphatase Lactate Dehydrogenase Troponin T C-Reactive Protein NT-Pro-B Natriuret Pep 63372 H Total Protein Albumin Albumin/Globulin Ratio Triglycerides Cholesterol LDL Cholesterol Direct HDL Cholesterol Cholesterol/HDL Ratio HCG, Qual Negative 03/04/20 03/04/20 06:24 06:30 WBC RBC Hgb Hct MCV MCH MCHC RDW Plt Count Lymph % (Auto) [place] % (Auto) Eos % (Auto) Baso % (Auto) Lymph # [place] # Eos # Baso # Seg Neutrophils % Seg Neutrophils # PT INR APTT D-Dimer Sodium 134 L Potassium 4.2 Chloride 96.6 L Carbon Dioxide 24 Anion Gap 18 BUN 22 H Creatinine 6.4 H Estimated GFR 9 BUN/Creatinine Ratio 3 Glucose 75 73 Calcium 9.3 Phosphorus 4.40 Ferritin Total Bilirubin 0.40 Direct Bilirubin < 0.2 Indirect Bilirubin 0.2 AST 12 ALT < 5 L Alkaline Phosphatase 117 Lactate Dehydrogenase 135 128 Troponin T C-Reactive Protein 4.80 H 4.60 H NT-Pro-B Natriuret Pep Total Protein 8.2 Albumin 3.4 L Albumin/Globulin Ratio 0.7 Triglycerides Cholesterol LDL Cholesterol Direct HDL Cholesterol Cholesterol/HDL Ratio HCG, Qual - EKG Data -: EKG Interpreted by Nv EKG shows normal: sinus rhythm Rate: tachycardia - EKG Data Interpretation: no acute changes, other (Left atrial enlargement) Critical Care Time: Yes Critical care time in (mins) excluding proc time.: 45 Critical care attestation.: If time is entered above; I have spent that time in minutes in the direct care of this critically ill patient, excluding procedure time. ED Disposition Clinical Impression: End-stage renal disease needing dialysis, Person under investigation for COVID- 19, Malignant hypertension, Elevated troponin I level Pulmonary edema Qualifiers: Chronicity: acute Qualified Code(s): J81.0 - Acute pulmonary edema Anemia Qualifiers: Anemia type: unspecified type Qualified Code(s): D64.9 - Anemia, unspecified Chest pain Qualifiers: Chest pain type: unspecified Qualified Code(s): R07.9 - Chest pain, unspecified Lupus (systemic lupus erythematosus) Qualifiers: Systemic lupus erythematosus type: unspecified Systemic lupus erythematosus organ involvement: unspecified Qualified Code(s): M32.9 - Systemic lupus er ythematosus, unspecified Disposition: -09 OP ADMIT IP TO THIS HOSP Is pt being admited?: Yes Does the pt Need Aspirin: Yes Condition: Stable Instructions: Pulmonary Edema (ED), Hypertension (ED), Chest Pain (ED) Referrals: PRIMARY CARE, [Primary Care Provider] - 3-5 Days Time of Disposition: 10:33
[2020-03-04] MEDS ORDERED: ASPIRIN 325 MG TAB PO ONE ×2 (10:35→10:36)
[2020-03-04] MEDS ORDERED: CYCLOBENZAPRINE 10 MG TAB PO PRN (11:58)
[2020-03-04] MEDS ORDERED: HYDROcodone/ACETAMINOPHEN 5-325 MG TAB PO PRN (11:58)
[2020-03-04] MEDS ORDERED: EPOETIN ALFA 10,000 UNIT/1 ML INJ IV PRN (11:58)
[2020-03-04] MEDS ORDERED: HYDROXYCHLOROQUINE 200 MG TAB PO SCH (12:00)
[2020-03-04] MEDS ORDERED: levETIRAcetam 500 MG TAB PO SCH ×3 (12:00→22:00)
--- NOTE | 2020-03-04 12:50 | Consultation ---
History of Present Illness - Reason for Consult Consult date: 03/04/20 end stage renal disease Requesting physician: CASH HEADLEY - History of Present Illness The patient presents to the emergency department this time stating that she has had shortness of breath. She also complains of cough largely nonproductive. She states that she is not treated with home nebs. Prior to my arrival a nebulized bronchodilator treatment was ordered. I did not encounter the patient have any wheezing. She states that she has had some chest pain. She further explains that the chest pain is non-frequent and thought to be related to her lupus. She is a poor historian. She has not been taking her temperature. She has a history of noncompliance and did not take her blood pressure medicine this morning. She states that her last dialysis was . Thus she is due for dialysis today. Past History Past Medical History: dialysis, hypertension, seizures, other (Lupus, depression) Past Surgical History: Other (History of creation of AV fistula) Social history: no significant social history Family history: no significant family history Medications and Allergies Allergies Allergy/AdvReac Type Severity Reaction Status Date / Time lisinopril Allergy Swelling Verified 01/20/20 15:43 metoprolol Allergy Unknown Verified 01/20/20 15:43 acetaminophen [From Percocet] AdvReac Itching Verified 02/09/20 07:21 oxycodone [From Percocet] AdvReac Itching Verified 02/09/20 07:22 oxycodone HCl [From Percocet] AdvReac Unknown Verified 01/20/20 15:43 Home Medications Medication Instructions Recorded Confirmed Last Taken Type Epoetin Blair 10,000 Unit [Procrit] 10,000 unit IV ALYSSA PRN vial 11/27/19 02/12/20 Unknown Rx diphenhydrAMINE [Benadryl CAP] 25 mg PO QHS PRN 30 Days #60 11/27/19 02/12/20 Unknown Rx capsule Ibuprofen [Motrin 800 MG tab] 800 mg PO Q8HR PRN #20 tablet 12/25/19 02/12/20 Unknown Rx HYDROcodone/APAP 5-325 [[place] 1 each PO Q6HR PRN #10 tablet 01/13/20 02/12/20 Unknown Rx 5-325 mg TAB] Ondansetron [Zofran Odt] 4 mg PO Q8HR PRN #20 tab.rapdis 20 02/12/20 Unknown Rx Cyclobenzaprine [Flexeril 10 MG 10 mg PO TID PRN #90 tablet 02/15/20 Unknown Rx TAB] Furosemide [Lasix TAB] 80 mg PO QDAY 30 Days #30 02/15/20 Unknown Rx HYDROmorphone [Dilaudid] 2 mg PO BID #10 tablet 02/15/20 Unknown Rx Hydroxychloroquine [Plaquenil] 200 mg PO QDAY 30 Days #30 02/15/20 Unknown Rx Hydroxychloroquine [Plaquenil] 200 mg PO QDAY 30 Days #30 tablet 02/15/20 Unknown Rx Ipratropium/Albuterol Sulfate 1 ampul IH TIDRT #50 ampul.neb 02/15/20 Unknown Rx [DUONEB *Not for PRN Use*] NIFEdipine XL [Procardia Xl] 60 mg PO Q12HR #30 tablet 02/15/20 Unknown Rx Oxycodone HCl/Acetaminophen 1 each PO TID PRN #14 tablet 02/15/20 Unknown Rx [Percocet 10/325 mg] Pantoprazole [Protonix TAB] 40 mg PO QDAY #30 tablet 02/15/20 Unknown Rx Valsartan [Diovan] 160 mg PO BID #60 tablet 02/15/20 Unknown Rx hydrALAZINE [Apresoline TAB] 100 mg PO TID #90 tab 02/15/20 Unknown Rx labetaloL [Labetalol 200mg TAB] 200 mg PO TID #90 tablet 02/15/20 Unknown Rx levETIRAcetam [Keppra TAB] 1,000 mg PO BID #60 tablet 02/15/20 Unknown Rx levETIRAcetam [Keppra TAB] 500 mg PO BID #60 02/15/20 Unknown Rx levoFLOXacin [Levaquin TAB] 500 mg PO Q48HR #7 tablet 02/15/20 Unknown Rx Active Meds: Active Medications Acetaminophen (Tylenol) 650 mg PO Q4H PRN PRN Reason: Pain MILD(1-3)/Fever >100.5/WOLFF Acetaminophen/Hydrocodone Bitart ([place] 5/325) 1 each PO Q6HR PRN PRN Reason: PAIN Albuterol (Proventil) 2.5 mg IH Q4HRT PRN PRN Reason: Shortness Of Breath Albuterol/Ipratropium (Duoneb *Not For Prn Use*) 1 ampul IH Q6HRT FERNANDO Albuterol/Ipratropium (Duoneb *Not For Prn Use*) 1 ampul IH TIDRT FERNANDO Cyclobenzaprine HCl (Flexeril) 10 mg PO TID PRN PRN Reason: Muscle Spasm Dextrose (D50w (25gm) Syringe) 50 ml IV Q30MIN PRN; Protocol PRN Reason: Hypoglycemia Diphenhydramine HCl (Benadryl) 25 mg PO QHS PRN PRN Reason: Anxiety Epoetin Blair (Procrit) 10,000 unit IV ALYSSA PRN PRN Reason: hemodialysis Furosemide (Lasix) 80 mg PO DAILY [facility] Hydralazine HCl (Apresoline) 100 mg PO TID [facility] Hydromorphone HCl (Dilaudid) 2 mg PO BID [facility] Hydroxychloroquine Sulfate (Plaquenil) 200 mg PO QDAY [facility] Sodium Chloride (Nacl 0.9%) 100 mls @ 999 mls/hr IV ALYSSA PRN PRN Reason: Hypotension Labetalol HCl (Labetalol) 200 mg PO TID [facility] Levetiracetam (Keppra) 1,500 mg PO BID [facility] Metoclopramide HCl (Reglan) 10 mg IV Q6H PRN PRN Reason: Nausea And Vomiting Naloxone HCl (Naloxone) 0.1 mg IV Q2MIN PRN PRN Reason: Res Rate </= 8 or 02 SAT < 92% Ondansetron HCl (Zofran) 4 mg IV Q4H PRN PRN Reason: Nausea And Vomiting Oxycodone/Acetaminophen (Percocet 5/325) 1 tab PO Q6H PRN PRN Reason: Pain, Moderate (4-6) Senna (Senokot) 8.6 mg PO Q12HR [facility] Last Admin: 03/04/20 10:04 Dose: Not Given Documented by: Sodium Chloride (Sodium Chloride Flush Syringe 10 Ml) 10 ml IV BID [facility] Sodium Chloride (Sodium Chloride Flush Syringe 10 Ml) 10 ml IV PRN PRN PRN Reason: LINE FLUSH Review of Systems All systems: negative (Negative except as noted above) Exam - Vital Signs Vital signs: Vital Signs Temp Pulse Resp BP Pulse Ox 98.7 F 104 H 28 H 182/124 98 03/04/20 05:23 03/04/20 05:23 03/04/20 05:23 03/04/20 05:23 03/04/20 05:23 - General Appearance General appearance: well-developed, well-nourished, appears stated age EENT: ATNC Neck: Present: neck supple, trachea midline. Absent: JVD/HJR, Masses Respiratory: Rales (Bibasal crackles) Heart: regular, normal heart rate, S1S2, no murmurs Gastrointestinal: Present: normal, normoactive bowel sounds Integumentary: other (AV fistula in her right upper arm. Good bruit and thrill.) Results - Lab Results 03/04/20 05:37 03/04/20 06:30 Most recent lab results Calcium 9.3 mg/dL (8.4-10.2) 03/04/20 06:24 Phosphorus 4.40 mg/dL (2.5-4.5) 03/04/20 06:24 Assessment and Plan Impression * End-stage renal disease on maintenance hemodialysis * Congestive heart failure * Accelerated hypertension * Anemia secondary to ESRD * Noncompliance with dialysis * Lupus * Seizure disorder Recommendations * Shall arrange for hemodialysis treatment for today. Remove fluid as tolerated. * Her first COVID test is negative by PCR * If blood pressure remains elevated after dialysis, would adjust her antihypertensive medications * Binders with meals * Adjust diet and meds for ESRD state * No IV, BP or venipuncture in his access arm * Patient noted to have some pseudoaneurysms. Patient states that she has an upcoming appointment with her vascular surgeon * Epogen with dialysis * Thank you very much for the consultation. Shall follow along with you
[2020-03-04] MEDS ORDERED: hydrALAZINE 100 MG TAB ONE (13:41)
[2020-03-04] MEDS ORDERED: ASPIRIN 325 MG TAB ONE (13:42)
[2020-03-04] MEDS ORDERED: IPRATROPIUM/ALBUTEROL SULFATE 3 ML AMPUL.NEB IH SCH ×2 (14:00)
[2020-03-04] MEDS ORDERED: hydrALAZINE 100 MG TAB PO SCH (14:00)
[2020-03-04] MEDS ORDERED: hydrALAZINE 20 MG/1 ML INJ IV PRN (14:09)
--- NOTE | 2020-03-04 14:13 | Event Note ---
Date: 03/04/20 Currently nursing staff patient left the hospital shortly after being admitted AMA. No further discharge summary is needed as this was a short stay.
[2020-03-04] MEDS ORDERED: HYDROmorphone 2 MG TAB PO SCH (22:00)
[2020-03-04] MEDS ORDERED: diphenhydrAMINE 25 MG CAP PO PRN (22:00)
[2020-03-05] MEDS ORDERED: NON-FORMULARY EACH (Furosemide [Lasix Tab] 80 MG) PO SCH (10:00)
[2020-03-05] MEDS ORDERED: FUROSEMIDE 40 MG TAB PO SCH (13:00)
== END 2020-03-04 14:40 | disposition left against medical advice (07) | DRG 291 ==
LOC: ED 04:56 → IMCU 09:22
PROVIDERS: ADMIT Internal Medicine; ATTEND Internal Medicine
DX: I13.2 Hypertensive heart and chronic kidney disease with heart failure and with stage 5 chronic kidney disease, or end stage renal disease (principal); N18.6 End stage renal disease; J81.0 Acute pulmonary edema; K29.00 Acute gastritis without bleeding; J44.9 Chronic obstructive pulmonary disease, unspecified; I16.0 Hypertensive urgency; Z20.828 Contact with and (suspected) exposure to other viral communicable diseases; F32.9 Major depressive disorder, single episode, unspecified; I50.9 Heart failure, unspecified; D63.1 Anemia in chronic kidney disease; M32.9 Systemic lupus erythematosus, unspecified; G40.909 Epilepsy, unspecified, not intractable, without status epilepticus; M19.90 Unspecified osteoarthritis, unspecified site; E11.22 Type 2 diabetes mellitus with diabetic chronic kidney disease; G43.909 Migraine, unspecified, not intractable, without status migrainosus; Z88.1 Allergy status to other antibiotic agents; Z88.5 Allergy status to narcotic agent; Z79.899 Other long term (current) drug therapy; Z91.15 Patient's noncompliance with renal dialysis; Z99.2 Dependence on renal dialysis; I25.2 Old myocardial infarction
CPT/HCPCS: 36415; 71045; 80048; 80061; 80076; 82728; 82947; 83615; 83880; 84100; 84145; 84484; 84703; 85025; 85379; 85610; 85730; 86140; 93005; 94644; 96374; 96375; 96376; G0378; J0360; J1100; U0003-CS

== ENCOUNTER 2020-03-12 11:39 | Observation (INO) | payer MEDICARE ==
[2020-03-12] MEDS ORDERED: HYDROmorphone 1 MG/1 ML INJ IM ONE (13:15)
--- NOTE | 2020-03-12 13:31 | XRay Report ---
CHEST 1 VIEW 03/12/2020 12:25 PM INDICATION / CLINICAL INFORMATION: Chest pain. COMPARISON: 03/04/2020 FINDINGS: SUPPORT DEVICES: None. HEART / MEDIASTINUM: Stable. LUNGS / PLEURA: Stable small bilateral pleural effusions. Pulmonary vascular congestion has increased from the prior study. No pneumothorax. ADDITIONAL FINDINGS: No significant additional findings. IMPRESSION: 1. Increased pulmonary vascular congestion since our study with stable small bilateral pleural effusi ons. Signer Name: Virgilio Matthew MD Signed: 03/12/2020 1:27 PM Workstation Name: [id number]
[2020-03-12 14:15] LABS: INR 1.14 (0.87-1.13)
[2020-03-12 14:16] LABS: Eosinophils # (Auto) 0.1 K/mm3 (0.0-0.4); Eosinophils % (Auto) 1.8 % (0.0-4.3); Hemoglobin 8.8 gm/dl (10.1-14.3); Lymphocytes # (Auto) 0.8 K/mm3 (1.2-5.4); Lymphocytes % (Auto) 24.6 % (13.4-35.0); Mean Corpuscular HGB Conc 32 % (30-34); Mean Corpuscular Volume 91 fl (79-97); Monocytes # (Auto) 0.3 K/mm3 (0.0-0.8); Monocytes % (Auto) 11.2 % (0.0-7.3); Platelet Count 200 K/mm3 (140-440); Red Blood Count 2.96 M/mm3 (3.65-5.03); Red Cell Distribution Width 16.8 % (13.2-15.2)
[2020-03-12 14:25] LABS: Albumin 3.5 g/dL (3.9-5); BUN/Creatinine Ratio 3; Blood Urea Nitrogen 15 mg/dL (7-17); Calcium 8.9 mg/dL (8.4-10.2); Hemolysis Index 4
[2020-03-12 14:30] LABS: Alanine Aminotransferase < 5 units/L (7-56)
[2020-03-12 14:44] LABS: Chol/HDL Ratio 2.02 %; HDL Cholesterol 45 mg/dL (40-59); LDL Cholesterol,Direct 40 mg/dL (50-130)
--- NOTE | 2020-03-12 15:16 | Emergency Department Report ---
ED Chest Pain HPI - General Chief Complaint: Chest Pain Stated Complaint: CP/PRABHU Time Seen by Provider: 03/12/20 11:58 Source: patient, EMS Mode of arrival: Ambulatory Limitations: No Limitations - History of Present Illness Initial Comments: This is a 30-year-old -G[place]ian female who presents to the emergency department with complaint of some midsternal left-sided chest pain, shortness of breath and dizziness that started earlier this morning. She has a past medical history that includes end-stage renal disease on hemodialysis on Friday//Friday, lupus, hypertension. Patient's primary care physician is Dr. Espinoza. The patient was recently admitted here for some pulmonary edema and was ruled out for Covid 19. The patient has a history of a left-sided heart cath on 02/2018 that showed normal coronaries. The patient had a negative Lexiscan stress test on 02/2019. The patient was seen by Dr. Hardin as a consult in January of this year for chest pain. It appears that the patient was going to have a stress test on that time but there was not appropriate IV access and at that time her chest pain had resolved. It also appears that there have been many times where the patient has been referred for outpatient follow-up but has been noncompliant. She did not take anything for symptoms prior to presentation today. No recent travel or sick contacts at home. Severity scale (0 -10): 10 - Related Data Previous Rx's Medication Instructions Recorded Last Taken Type Epoetin Blair 10,000 Unit [Procrit] 10,000 unit IV ALYSSA PRN vial 11/27/19 Unknown Rx diphenhydrAMINE [Benadryl CAP] 25 mg PO QHS PRN 30 Days #60 11/27/19 Unknown Rx capsule Ibuprofen [Motrin 800 MG tab] 800 mg PO Q8HR PRN #20 tablet 12/25/19 Unknown Rx HYDROcodone/APAP 5-325 [[place] 1 each PO Q6HR PRN #10 tablet 01/13/20 Unknown Rx 5-325 mg TAB] Ondansetron [Zofran Odt] 4 mg PO Q8HR PRN #20 tab.rapdis 01/13/20 Unknown Rx Cyclobenzaprine [Flexeril 10 MG 10 mg PO TID PRN #90 tablet 02/15/20 Unknown Rx TAB] Furosemide [Lasix TAB] 80 mg PO QDAY 30 Days #30 02/15/20 Unknown Rx HYDROmorphone [Dilaudid] 2 mg PO BID #10 tablet 02/15/20 Unknown Rx Hydroxychloroquine [Plaquenil] 200 mg PO QDAY 30 Days #30 02/15/20 Unknown Rx Hydroxychloroquine [Plaquenil] 200 mg PO QDAY 30 Days #30 tablet 02/15/20 Unknown Rx Ipratropium/Albuterol Sulfate 1 ampul IH TIDRT #50 ampul.neb 02/15/20 Unknown Rx [DUONEB *Not for PRN Use*] NIFEdipine XL [Procardia Xl] 60 mg PO Q12HR #30 tablet 02/15/20 Unknown Rx Oxycodone HCl/Acetaminophen 1 each PO TID PRN #14 tablet 02/15/20 Unknown Rx [Percocet 10/325 mg] Pantoprazole [Protonix TAB] 40 mg PO QDAY #30 tablet 02/15/20 Unknown Rx Valsartan [Diovan] 160 mg PO BID #60 tablet 02/15/20 Unknown Rx hydrALAZINE [Apresoline TAB] 100 mg PO TID #90 tab 02/15/20 Unknown Rx labetaloL [Labetalol 200mg TAB] 200 mg PO TID #90 tablet 02/15/20 Unknown Rx levETIRAcetam [Keppra TAB] 1,000 mg PO BID #60 tablet 02/15/20 Unknown Rx levETIRAcetam [Keppra TAB] 500 mg PO BID #60 02/15/20 Unknown Rx levoFLOXacin [Levaquin TAB] 500 mg PO Q48HR #7 tablet 02/15/20 Unknown Rx Allergies Allergy/AdvReac Type Severity Reaction Status Date / Time lisinopril Allergy Swelling Verified 01/20/20 15:43 metoprolol Allergy Unknown Verified 01/20/20 15:43 acetaminophen [From Percocet] AdvReac Itching Verified 02/09/20 07:21 oxycodone [From Percocet] AdvReac Itching Verified 02/09/20 07:22 oxycodone HCl [From Percocet] AdvReac Unknown Verified 01/20/20 15:43 Heart Score - HEART Score History: Slightly suspicious EKG: Normal Age: < 45 Risk factors: 1-2 risk factors Troponin: > 3x normal limit HEART Score: 3 - Critical Actions Critical Actions: 0-3 pts:0.9-1.7%risk of adverse cardiac event.Candidate for discharge ED Review of Systems ROS: Stated complaint: CP/PRABHU Other details as noted in HPI Comment: All other systems reviewed and negative Constitutional: denies: chills, fever Eyes: denies: eye pain, vision change ENT: denies: ear pain, throat pain Respiratory: shortness of breath. denies: cough Cardiovascular: chest pain. denies: palpitations Gastrointestinal: denies: abdominal pain, vomiting Genitourinary: denies: dysuria, discharge Musculoskeletal: denies: back pain, arthralgia Skin: denies: rash, lesions Neurological: other (Dizziness). denies: headache, weakness ED Past Medical Hx - Past Medical History Previous Medical History?: Yes Hx Hypertension: Yes Hx Congestive Heart Failure: Yes Hx Diabetes: Yes Hx Renal Disease: Yes (HD T,THUR,SAT) Hx Arthritis: Yes Hx Headaches / Migraines: Yes Hx Seizures: Yes Hx Asthma: Yes Hx COPD: Yes Hx HIV: No Additional medical history: Lupus - Surgical History Past Surgical History?: Yes Additional Surgical History: RIGHT ARM graft - Social History Smoking Status: Current Some Day Smoker Substance Use Type: None - Medications Home Medications: Home Medications Medication Instructions Recorded Confirmed Last Taken Type Epoetin Blair 10,000 Unit [Procrit] 10,000 unit IV ALYSSA PRN vial 11/27/19 02/12/20 Unknown Rx diphenhydrAMINE [Benadryl CAP] 25 mg PO QHS PRN 30 Days #60 11/27/19 02/12/20 Unknown Rx capsule Ibuprofen [Motrin 800 MG tab] 800 mg PO Q8HR PRN #20 tablet 12/25/19 02/12/20 Unknown Rx HYDROcodone/APAP 5-325 [[place] 1 each PO Q6HR PRN #10 tablet 01/13/20 02/12/20 Unknown Rx 5-325 mg TAB] Ondansetron [Zofran Odt] 4 mg PO Q8HR PRN #20 tab.rapdis 01/13/20 02/12/20 Unknown Rx Cyclobenzaprine [Flexeril 10 MG 10 mg PO TID PRN #90 tablet 02/15/20 Unknown Rx TAB] Furosemide [Lasix TAB] 80 mg PO QDAY 30 Days #30 02/15/20 Unknown Rx HYDROmorphone [Dilaudid] 2 mg PO BID #10 tablet 02/15/20 Unknown Rx Hydroxychloroquine [Plaquenil] 200 mg PO QDAY 30 Days #30 02/15/20 Unknown Rx Hydroxychloroquine [Plaquenil] 200 mg PO QDAY 30 Days #30 tablet 02/15/20 Unknown Rx Ipratropium/Albuterol Sulfate 1 ampul IH TIDRT #50 ampul.neb 02/15/20 Unknown Rx [DUONEB *Not for PRN Use*] NIFEdipine XL [Procardia Xl] 60 mg PO Q12HR #30 tablet 02/15/20 Unknown Rx Oxycodone HCl/Acetaminophen 1 each PO TID PRN #14 tablet 02/15/20 Unknown Rx [Percocet 10/325 mg] Pantoprazole [Protonix TAB] 40 mg PO QDAY #30 tablet 02/15/20 Unknown Rx Valsartan [Diovan] 160 mg PO BID #60 tablet 02/15/20 Unknown Rx hydrALAZINE [Apresoline TAB] 100 mg PO TID #90 tab 02/15/20 Unknown Rx labetaloL [Labetalol 200mg TAB] 200 mg PO TID #90 tablet 02/15/20 Unknown Rx levETIRAcetam [Keppra TAB] 1,000 mg PO BID #60 tablet 02/15/20 Unknown Rx levETIRAcetam [Keppra TAB] 500 mg PO BID #60 02/15/20 Unknown Rx levoFLOXacin [Levaquin TAB] 500 mg PO Q48HR #7 tablet 02/15/20 Unknown Rx ED Physical Exam - General Limitations: No Limitations - Other Other exam information: GENERAL: The patient is well-developed well-nourished. HENT: Normocephalic. Atraumatic. Patient has moist mucous membranes. EYES: Extraocular motions are intact. No nystagmus. NECK: Supple. Trachea is midline. CHEST/LUNGS: Coarse breath sounds. No tachypnea or accessory muscle use. There is no respiratory distress noted. There is some reproducible chest pain to palpation of the chest wall. No crepitus or deformity. HEART/CARDIOVASCULAR: Regular. There is no tachycardia. ABDOMEN: Abdomen is soft, nontender. Patient has normal bowel sounds. SKIN: Skin is warm and dry. NEURO: The patient is awake, alert, and oriented. The patient is cooperative. The patient has no focal neurologic deficits. Normal speech. Cranial nerves II through XII grossly intact. MUSCULOSKELETAL: There is no tenderness or deformity. There is no evidence of acute injury. ED Course Vital Signs 03/12/20 03/12/20 03/12/20 11:48 11:50 12:00 Temperature 98.4 F Pulse Rate 97 H 97 H 95 H Respiratory 19 20 39 H Rate Blood Pressure 181/117 181/117 O2 Sat by Pulse 99 98 Oximetry 03/12/20 03/12/20 03/12/20 12:16 12:30 12:46 Temperature Pulse Rate 92 H 92 H 96 H Respiratory 33 H 28 H 24 Rate Blood Pressure 171/120 189/125 194/125 O2 Sat by Pulse 100 100 97 Oximetry 03/12/20 03/12/20 03/12/20 13:00 13:16 13:30 Temperature Pulse Rate 93 H 93 H 94 H Respiratory 27 H 21 40 H Rate Blood Pressure 193/117 193/117 193/117 O2 Sat by Pulse 100 100 100 Oximetry 03/12/20 03/12/20 03/12/20 13:46 14:00 14:16 Temperature Pulse Rate 96 H 101 H 99 H Respiratory 26 H 14 13 Rate Blood Pressure 189/117 190/121 191/130 O2 Sat by Pulse 100 100 100 Oximetry 03/12/20 03/12/20 03/12/20 14:29 14:30 14:45 Temperature Pulse Rate 98 H 97 H Respiratory 18 31 H 31 H Rate Blood Pressure 183/116 178/121 O2 Sat by Pulse 98 100 97 Oximetry - Consultations Consultation #1: 03/12/20 15:15 I spoke with the paint tester on-call for [facility], Dr. Melendrez, and he suggested that the patient should be admitted for a stress test since it could not be completed when it was attempted in January of this year. LAZARO score - Lazaro Score Age > 65: (0) No Aspirin use within the Past 7 Days: (1) Yes 3 or more CAD Risk Factors: (0) No 2 or more Angina events in past 24 hrs: (1) Yes Known CAD with more than 50% Stenosis: (0) No Elevated Cardiac Markers: (1) Yes ST Deviation Greater than 0.5mm: (0) No LAZARO Score: 3 ED Medical Decision Making - Lab Data Result diagrams: 03/12/20 13:36 03/12/20 13:36 - EKG Data -: EKG Interpreted by Me EKG shows normal: sinus rhythm, axis, intervals, QRS complexes, ST-T waves Rate: normal - EKG Data When compared to previous EKG there are: no significant change Interpretation: unchanged when compared t (03/04/20) - Radiology Data Radiology results: image reviewed interpreted by me: Chest x-ray does not show any acute process. There are no pleural effusions, obvious pneumonia and there is no pneumothorax. - Medical Decision Making This patient presents with a complaint of some midsternal to left-sided chest pain, shortness of breath and some dizziness. EKG is normal without ST elevation LA, ischemia or dysrhythmia. Chest x-ray shows some pulmonary vascular congestion, mild pleural effusions, but no obvious pneumonia and no pneumothorax. Patient's labs shows renal failure consistent with her end-stage renal disease on hemodialysis, as well as a elevated first troponin of about 0.3. Patient does have a history of chronic chest pain and chronic troponin elevation. With the elevated troponin levels, this gives the patient a moderate heart and LAZARO score. I spoke with cardiology, as per the consultation section, and it was suggested that the patient should be admitted to reattempt that str ess test that they were unable to complete in January. The patient will be admitted by the hospitalist, Dr. Riojas. Critical Care Time: No Critical care attestation.: If time is entered above; I have spent that time in minutes in the direct care of this critically ill patient, excluding procedure time. ED Disposition Clinical Impression: Acute chest pain, Uncontrolled hypertension, ESRD (end stage renal disease) on dialysis Lupus (systemic lupus erythematosus) Qualifiers: Systemic lupus erythematosus type: unspecified Systemic lupus erythematosus organ involvement: unspecified Qualified Code(s): M32.9 - Systemic lupus erythematosus, unspecified Disposition: OP ADMIT IP TO THIS HOSP Is pt being admited?: Yes Condition: Fair Time of Disposition: 15:16
[2020-03-12] MEDS ORDERED: hydrALAZINE 20 MG/1 ML INJ IV ONE (15:19)
[2020-03-12] MEDS ORDERED: ASPIRIN 81 MG TAB CHEW PO ONE (15:33)
[2020-03-12] MEDS ORDERED: hydrALAZINE 20 MG/1 ML INJ ONE (16:11)
[2020-03-12] MEDS ORDERED: ASPIRIN 81 MG TAB CHEW ONE (17:11)
[2020-03-12] MEDS ORDERED: NON-FORMULARY EACH (Furosemide [Lasix Tab] 80 MG) PO SCH (18:00)
[2020-03-12] MEDS ORDERED: FUROSEMIDE 40 MG TAB PO SCH (18:00)
[2020-03-12] MEDS ORDERED: METOCLOPRAMIDE 10 MG/2 ML INJ IV PRN (18:08)
[2020-03-12] MEDS ORDERED: oxyCODONE /ACETAMINOPHEN 5-325MG TAB PO PRN (18:08)
[2020-03-12] MEDS ORDERED: ONDANSETRON 4 MG/2 ML INJ IV PRN (18:08)
[2020-03-12] MEDS ORDERED: ACETAMINOPHEN 325 MG TAB PO PRN (18:08)
[2020-03-12] MEDS: HYDROXYCHLOROQUINE 200 MG TAB PO SCH (20:25)
[2020-03-12] MEDS: cloNIDine 0.1 MG TAB PO SCH (20:25)
[2020-03-12] MEDS: PHENYTOIN 100 MG CAPSULE.ER PO SCH (20:25)
[2020-03-12] MEDS: levETIRAcetam 500 MG TAB PO SCH (20:26)
[2020-03-12] MEDS: NIFEdipine XL 60 MG TAB PO SCH (20:26)
[2020-03-12] MEDS: VALSARTAN 160MG TAB PO SCH ×2 (20:26→22:22)
[2020-03-12] MEDS: HYDROmorphone 1 MG/1 ML INJ IV PRN (20:27)
[2020-03-12] MEDS: hydrALAZINE 100 MG TAB PO SCH (20:27)
[2020-03-12] MEDS ORDERED: NON-FORMULARY EACH (Clonidine Hcl [Catapres] 0.3 MG) PO SCH (22:00)
[2020-03-12] MEDS: IPRATROPIUM/ALBUTEROL SULFATE 3 ML AMPUL.NEB IH SCH (22:15)
[2020-03-12] MEDS: diphenhydrAMINE 50 MG/ML VIAL IV PRN (22:35)
[2020-03-13] MEDS: PHENYTOIN 100 MG CAPSULE.ER PO SCH ×3 (06:09→16:07)
[2020-03-13] MEDS: HYDROmorphone 1 MG/1 ML INJ IV PRN ×3 (06:10→15:59)
[2020-03-13] MEDS: cloNIDine 0.1 MG TAB PO SCH ×2 (06:21→11:15)
[2020-03-13] MEDS: levETIRAcetam 500 MG TAB PO SCH ×2 (06:22→11:20)
[2020-03-13] MEDS: NIFEdipine XL 60 MG TAB PO SCH ×2 (06:23→11:14)
[2020-03-13 07:45] LABS: Basophils % (Auto) 0.4 % (0.0-1.8); Eosinophils # (Auto) 0.1 K/mm3 (0.0-0.4); Eosinophils % (Auto) 1.2 % (0.0-4.3); Hematocrit 26.9 % (30.3-42.9); Hemoglobin 8.5 gm/dl (10.1-14.3); Lymphocytes # (Auto) 0.6 K/mm3 (1.2-5.4); Lymphocytes % (Auto) 15.2 % (13.4-35.0); Mean Corpuscular HGB Conc 32 % (30-34); Mean Corpuscular Volume 92 fl (79-97); Monocytes # (Auto) 0.5 K/mm3 (0.0-0.8); Monocytes % (Auto) 11.3 % (0.0-7.3); Platelet Count 191 K/mm3 (140-440); Red Blood Count 2.92 M/mm3 (3.65-5.03); Red Cell Distribution Width 16.7 % (13.2-15.2)
[2020-03-13 07:54] LABS: Albumin 3.3 g/dL (3.9-5); BUN/Creatinine Ratio 3; Blood Urea Nitrogen 20 mg/dL (7-17); Calcium 8.9 mg/dL (8.4-10.2); Hemolysis Index 0
[2020-03-13] MEDS: IPRATROPIUM/ALBUTEROL SULFATE 3 ML AMPUL.NEB IH SCH ×3 (07:54→20:47)
[2020-03-13 07:55] LABS: Alanine Aminotransferase < 5 units/L (7-56)
[2020-03-13] MEDS ORDERED: REGADENOSON 0.4 MG/5 ML INJ IV ONE ×2 (08:46→08:51)
--- NOTE | 2020-03-13 09:33 | History and Physical Report ---
History of Present Illness Date of examination: 03/12/20 Date of admission: 03/12/20 15:17 Chief complaint: Chest pain for one day History of present illness: 30-year-old -[place]onegas[place] female with multiple medical problems including end-stage renal disease, lupus, asthma/COPD, hypertension and seizure disorder comes in for chest pain which is midsternal associated with shortness of breath and dizziness since morning. Patient follows with Dr. Karlene Macedo for renal issues. Patient was recently admitted for chest pain and rule out COVID which was ruled out. Patient Has a History of Left and which showed normal coronaries. Patient had a negative Lexiscan on 03/06/2018. Patient was supposed to have a Lexiscan in January 2020 which did not happen. No shortness of breath. No exacerbating or relieving factors. Heart Score - HEART Score History: Slightly suspicious EKG: Normal Age: < 45 Risk factors: 1-2 risk factors Troponin: > 3x normal limit HEART Score: 3 - Critical Actions Critical Actions: 0-3 pts:0.9-1.7%risk of adverse cardiac event.Candidate for discharge - Past Medical History Previous Medical History?: Yes Hx Hypertension: Yes Hx Congestive Heart Failure: Yes Hx Diabetes: Yes Hx Renal Disease: Yes (HD T,THUR,SAT) Hx Arthritis: Yes Hx Headaches / Migraines: Yes Hx Seizures: Yes Hx Asthma: Yes Hx COPD: Yes Additional medical history: Lupus - Surgical History Past Surgical History?: Yes Additional Surgical History: RIGHT ARM graft - Social History Smoking Status: Current Some Day Smoker Substance Use Type: None Family history Htn - Medications Home Medications: Home Medications Medication Instructions Recorded Confirmed Last Taken Type Epoetin Blair 10,000 Unit [Procrit] 10,000 unit IV ALYSSA PRN vial 11/27/19 02/12/20 Unknown Rx diphenhydrAMINE [Benadryl CAP] 25 mg PO QHS PRN 30 Days #60 11/27/19 02/12/20 Unknown Rx capsule Ibuprofen [Motrin 800 MG tab] 800 mg PO Q8HR PRN #20 tablet 12/25/19 02/12/20 Unknown Rx HYDROcodone/APAP 5-325 [[place] 1 each PO Q6HR PRN #10 tablet 01/13/20 02/12/20 Unknown Rx 5-325 mg TAB] Ondansetron [Zofran Odt] 4 mg PO Q8HR PRN #20 tab.rapdis 20 02/12/20 Unknown Rx Cyclobenzaprine [Flexeril 10 MG 10 mg PO TID PRN #90 tablet 02/15/20 Unknown Rx TAB] Furosemide [Lasix TAB] 80 mg PO QDAY 30 Days #30 02/15/20 Unknown Rx HYDROmorphone [Dilaudid] 2 mg PO BID #10 tablet 02/15/20 Unknown Rx Hydroxychloroquine [Plaquenil] 200 mg PO QDAY 30 Days #30 02/15/20 Unknown Rx Hydroxychloroquine [Plaquenil] 200 mg PO QDAY 30 Days #30 tablet 02/15/20 Unknown Rx Ipratropium/Albuterol Sulfate 1 ampul IH TIDRT #50 ampul.neb 02/15/20 Unknown Rx [DUONEB *Not for PRN Use*] NIFEdipine XL [Procardia Xl] 60 mg PO Q12HR #30 tablet 02/15/20 Unknown Rx Oxycodone HCl/Acetaminophen 1 each PO TID PRN #14 tablet 02/15/20 Unknown Rx [Percocet 10/325 mg] Pantoprazole [Protonix TAB] 40 mg PO QDAY #30 tablet 02/15/20 Unknown Rx Valsartan [Diovan] 160 mg PO BID #60 tablet 02/15/20 Unknown Rx hydrALAZINE [Apresoline TAB] 100 mg PO TID #90 tab 02/15/20 Unknown Rx labetaloL [Labetalol 200mg TAB] 200 mg PO TID #90 tablet 02/15/20 Unknown Rx levETIRAcetam [Keppra TAB] 1,000 mg PO BID #60 tablet 02/15/20 Unknown Rx levETIRAcetam [Keppra TAB] 500 mg PO BID #60 02/15/20 Unknown Rx levoFLOXacin [Levaquin TAB] 500 mg PO Q48HR #7 tablet 02/15/20 Unknown Rx Review of Systems ROS: Stated complaint: CP/PRABHU Other details as noted in HPI Comment: All other systems reviewed and negative Constitutional: denies: chills, fever Eyes: denies: eye pain, vision change ENT: denies: ear pain, throat pain Respiratory: shortness of breath. denies: cough Cardiovascular: chest pain. denies: palpitations Gastrointestinal: denies: abdominal pain, vomiting Genitourinary: denies: dysuria, discharge Musculoskeletal: denies: back pain, arthralgia Skin: denies: rash, lesions Neurological: other (Dizziness). denies: headache, weakness Medications and Allergies Allergies Allergy/AdvReac Type Severity Reaction Status Date / Time lisinopril Allergy Swelling Verified 01/20/20 15:43 metoprolol Allergy Unknown Verified 01/20/20 15:43 acetaminophen [From Percocet] AdvReac Itching Verified 02/09/20 07:21 oxycodone [From Percocet] AdvReac Itching Verified 02/09/20 07:22 oxycodone HCl [From Percocet] AdvReac Unknown Verified 01/20/20 15:43 Home Medications Medication Instructions Recorded Confirmed Last Taken Type Furosemide [Lasix TAB] 80 mg PO QDAY 30 Days #30 02/15/20 03/12/20 1 Day Ago Rx ~03/11/20 Hydroxychloroquine [Plaquenil] 200 mg PO QDAY 30 Days #30 tablet 02/15/20 03/12/20 1 Day Ago Rx ~03/11/20 Ipratropium/Albuterol Sulfate 1 ampul IH TIDRT #50 ampul.neb 02/15/20 03/12/20 1 Day Ago Rx [DUONEB *Not for PRN Use*] ~03/11/20 NIFEdipine XL [Procardia Xl] 60 mg PO Q12HR #30 tablet 02/15/20 03/12/20 1 Day Ago Rx ~03/11/20 Valsartan [Diovan] 160 mg PO BID #60 tablet 02/15/20 03/12/20 1 Day Ago Rx ~03/11/20 hydrALAZINE [Apresoline TAB] 100 mg PO TID #90 tab 02/15/20 03/12/20 1 Day Ago Rx ~03/11/20 labetaloL [Labetalol 200mg TAB] 200 mg PO TID #90 tablet 02/15/20 03/12/20 1 Day Ago Rx ~03/11/20 levETIRAcetam [Keppra TAB] 500 mg PO BID #60 02/15/20 03/12/20 1 Day Ago Rx ~03/11/20 levoFLOXacin [Levaquin TAB] 500 mg PO Q48HR #7 tablet 02/15/20 03/12/20 1 Day Ago Rx ~03/11/20 Clonidine HCl [Catapres] 0.3 mg PO BID 03/12/20 03/12/20 1 Day Ago History ~03/11/20 Phenytoin [Dilantin] 100 mg PO Q8HR 03/12/20 03/12/20 1 Day Ago History ~03/11/20 Sertraline [Zoloft] 25 mg PO DAILY 03/12/20 03/12/20 1 Day Ago History ~03/11/20 Active Meds: Active Medications Acetaminophen (Tylenol) 650 mg PO Q4H PRN PRN Reason: Pain MILD(1-3)/Fever >100.5/WOLFF Albuterol/Ipratropium (Duoneb *Not For Prn Use*) 1 ampul IH TIDRT [facility] Last Admin: 03/13/20 07:54 Dose: 1 ampul Documented by: Clonidine HCl (Catapres) 0.3 mg PO BID [facility] Last Admin: 03/13/20 06:21 Dose: Not Given Documented by: Diphenhydramine HCl (Benadryl) 25 mg IV Q6H PRN PRN Reason: Itching Last Admin: 03/12/20 22:35 Dose: 25 mg Documented by: Furosemide (Lasix) 80 mg PO QDAY [facility] Hydralazine HCl (Apresoline) 100 mg PO TID [facility] Last Admin: 03/12/20 20:27 Dose: 100 mg Documented by: Hydromorphone HCl (Dilaudid) 0.5 mg IV Q3H PRN PRN Reason: Pain , Severe (7-10) Last Admin: 03/13/20 06:10 Dose: 0.5 mg Documented by: Hydroxychloroquine Sulfate (Plaquenil) 200 mg PO QDAY [facility] Last Admin: 03/12/20 20:25 Dose: 200 mg Documented by: Labetalol HCl (Labetalol) 200 mg PO TID [facility] Last Admin: 03/12/20 20:26 Dose: 200 mg Documented by: Levetiracetam (Keppra) 500 mg PO BID [facility] Last Admin: 03/13/20 06:22 Dose: Not Given Documented by: Metoclopramide HCl (Reglan) 10 mg IV Q6H PRN PRN Reason: Nausea And Vomiting Miscellaneous Medication (Furosemide [Lasix Tab]) 80 mg PO QDAY [facility] Nifedipine (Procardia Xl) 60 mg PO Q12HR [facility] Last Admin: 03/13/20 06:23 Dose: Not Given Documented by: Ondansetron HCl (Zofran) 4 mg IV Q8H PRN PRN Reason: Nausea And Vomiting Oxycodone/Acetaminophen (Percocet 5/325) 1 tab PO Q6H PRN PRN Reason: Pain, Moderate (4-6) Phenytoin (Dilantin) 100 mg PO Q8HR [facility] Last Admin: 03/13/20 06:22 Dose: Not Given Documented by: Sertraline HCl (Zoloft) 25 mg PO DAILY [facility] Sodium Chloride (Sodium Chloride Flush Syringe 10 Ml) 10 ml IV BID [facility] Last Admin: 03/13/20 06:23 Dose: Not Given Documented by: Sodium Chloride (Sodium Chloride Flush Syringe 10 Ml) 10 ml IV PRN PRN PRN Reason: LINE FLUSH Last Admin: 03/13/20 06:17 Dose: 10 ml Documented by: Valsartan (Diovan) 160 mg PO BID [facility] Last Admin: 03/12/20 22:22 Dose: Not Given Documented by: Exam - Constitutional Vitals: Temp Pulse Resp BP Pulse Ox 97 F L 68 22 141/100 90 03/13/20 05:06 03/13/20 05:06 03/13/20 06:10 03/13/20 05:06 03/13/20 03:35 General appearance: Present: no acute distress, well-nourished - EENT Eyes: Present: PERRL ENT: hearing intact, clear oral mucosa - Neck Neck: Present: supple, normal ROM - Respiratory Respiratory effort: normal Respiratory: bilateral: CTA - Cardiovascular Heart rate: 78 Rhythm: regular Heart Sounds: Present: S1 & S2. Absent: rub, click - Extremities Extremities: no ischemia, pulses intact, pulses symmetrical, No edema Peripheral Pulses: within normal limits - Abdominal General gastrointestinal: Present: soft, non-tender, non-distended, normal bowel sounds Female genitourinary: Present: normal - Rectal Rectal Exam: deferred - Integumentary Integumentary: Present: clear, warm, dry - Musculoskeletal Musculoskeletal: gait normal, strength equal bilaterally - Psychiatric Psychiatric: appropriate mood/affect, intact judgment & insight - Neurologic Neurologic: CNII-XII intact, moves all extremities - Allied Health Allied health notes reviewed: nursing, case management HEART Score - HEART Score EKG: Normal Age: < 45 Risk factors: 1-2 risk factors Troponin: Troponin T 0.285 ng/mL (0.00-0.029) H* 03/12/20 17:44 Troponin: > 3x normal limit - Critical Actions Critical Actions: 0-3 pts:0.9-1.7%risk of adverse cardiac event.Candidate for discharge Results - Labs CBC & Chem 7: 03/13/20 07:12 03/13/20 07:12 Labs: Laboratory Last Values WBC 4.2 K/mm3 (4.5-11.0) L 03/13/20 07:12 RBC 2.92 M/mm3 (3.65-5.03) L 03/13/20 07:12 Hgb 8.5 gm/dl (10.1-14.3) L 03/13/20 07:12 Hct 26.9 % (30.3-42.9) L 03/13/20 07:12 MCV 92 fl (79-97) 03/13/20 07:12 MCH 29 pg (28-32) 03/13/20 07:12 MCHC 32 % (30-34) 03/13/20 07:12 RDW 16.7 % (13.2-15.2) H 03/13/20 07:12 Plt Count 191 K/mm3 (140-440) 03/13/20 07:12 Lymph % (Auto) 15.2 % (13.4-35.0) 03/13/20 07:12 [place] % (Auto) 11.3 % (0.0-7.3) H 03/13/20 07:12 Eos % (Auto) 1.2 % (0.0-4.3) 03/13/20 07:12 Baso % (Auto) 0.4 % (0.0-1.8) 03/13/20 07:12 Lymph # 0.6 K/mm3 (1.2-5.4) L 03/13/20 07:12 [place] # 0.5 K/mm3 (0.0-0.8) 03/13/20 07:12 Eos # 0.1 K/mm3 (0.0-0.4) 03/13/20 07:12 Baso # 0.0 K/mm3 (0.0-0.1) 03/13/20 07:12 Seg Neutrophils % 71.9 % (40.0-70.0) H 03/13/20 07:12 Seg Neutrophils # 3.1 K/mm3 (1.8-7.7) 03/13/20 07:12 PT 14.4 Sec. (12.2-14.9) 03/12/20 13:36 INR 1.14 (0.87-1.13) H 03/12/20 13:36 Sodium 133 mmol/L (137-145) L 03/13/20 07:12 Potassium 4.6 mmol/L (3.6-5.0) 03/13/20 07:12 Chloride 95.8 mmol/L (98-107) L 03/13/20 07:12 Carbon Dioxide 23 mmol/L (22-30) 03/13/20 07:12 Anion Gap 19 mmol/L 03/13/20 07:12 BUN 20 mg/dL (7-17) H 03/13/20 07:12 Creatinine 6.1 mg/dL (0.7-1.2) H 03/13/20 07:12 Estimated GFR 10 ml/min 03/13/20 07:12 BUN/Creatinine Ratio 3 % 03/13/20 07:12 Glucose 97 mg/dL (65-100) 03/13/20 07:12 Calcium 8.9 mg/dL (8.4-10.2) 03/13/20 07:12 Total Bilirubin 0.30 mg/dL (0.1-1.2) 03/13/20 07:12 AST 13 units/L (5-40) 03/13/20 07:12 ALT < 5 units/L (7-56) L 03/13/20 07:12 Alkaline Phosphatase 95 units/L (35-129) 03/13/20 07:12 Troponin T 0.285 ng/mL (0.00-0.029) H* 03/12/20 17:44 Total Protein 8.0 g/dL (6.3-8.2) 03/13/20 07:12 Albumin 3.3 g/dL (3.9-5) L 03/13/20 07:12 Albumin/Globulin Ratio 0.7 % 03/13/20 07:12 Triglycerides 67 mg/dL (2-149) 03/12/20 13:36 Cholesterol 91 mg/dL (50-199) 03/12/20 13:36 LDL Cholesterol Direct 40 mg/dL (50-130) L 03/12/20 13:36 HDL Cholesterol 45 mg/dL (40-59) 03/12/20 13:36 Cholesterol/HDL Ratio 2.02 % 03/12/20 13:36 - Imaging and Cardiology EKG: report reviewed (Sinus rhythm no acute ST-T wave changes) Hodge/IV: IV Catheter Type [Left Chest] Peripheral IV Assessment and Plan Advance Directives: Yes (Full code) VTE prophylaxis?: Chemical Plan of care discussed with patient/family: Yes - Patient Problems (1) Acute chest pain Current Visit: Yes Status: Acute Plan to address problem: Chest pain rule out DC protocol Troponin elevated Lexiscan in the morning (2) Uncontrolled hypertension Current Visit: Yes Status: Acute Plan to address problem: Adjust medications to control the blood pressure (3) ESRD (end stage renal disease) on dialysis Current Visit: Yes Status: Chronic Plan to address problem: Continue hemodialysis as per schedule (4) Seizure disorder Current Visit: No Status: Chronic (5) Seizure disorder Current Visit: No Status: Chronic Plan to address problem: Continue Keppra (6) Lupus (systemic lupus erythematosus) Current Visit: Yes Status: Chronic Qualifiers: Systemic lupus erythematosus type: unspecified Plan to address problem: Continue Plaquenil (7) DVT prophylaxis Current Visit: No Status: Acute Plan to address problem: On heparin and GI prophylaxis
[2020-03-13] MEDS ORDERED: SERTRALINE 25 MG TAB PO SCH (10:00)
[2020-03-13] MEDS ORDERED: FUROSEMIDE 40 MG TAB PO SCH (11:00)
[2020-03-13] MEDS: HYDROXYCHLOROQUINE 200 MG TAB PO SCH (11:18)
[2020-03-13] MEDS: VALSARTAN 160MG TAB PO SCH (11:18)
[2020-03-13] MEDS: hydrALAZINE 100 MG TAB PO SCH ×2 (11:19→16:01)
[2020-03-13] MEDS: FUROSEMIDE 40 MG TAB PO SCH (11:19)
[2020-03-13 11:21] VITALS: BP 151/97
[2020-03-13] MEDS: diphenhydrAMINE 50 MG/ML VIAL IV PRN ×2 (11:36→11:42)
--- NOTE | 2020-03-13 12:08 | Progress Note ---
Subjective Date of service: 03/13/20 Objective - Constitutional Vitals: Vital Signs - 12hr 03/13/20 03/13/20 03/13/20 03:35 05:06 06:10 Temperature 97 F L Pulse Rate 68 Respiratory 20 22 Rate Respiratory 16 Rate [Back] Respiratory 18 Rate [ Generalized] Blood Pressure Blood Pressure 141/100 [Left] O2 Sat by Pulse 90 Oximetry 03/13/20 03/13/20 03/13/20 08:00 08:48 09:01 Temperature 98.7 F Pulse Rate 43 L 89 Respiratory 22 Rate Respiratory Rate [Back] Respiratory Rate [ Generalized] Blood Pressure 130/96 139/103 139/103 Blood Pressure [Left] O2 Sat by Pulse 94 Oximetry 03/13/20 03/13/20 03/13/20 09:35 09:36 09:37 Temperature Pulse Rate 107 H 110 H Respiratory Rate Respiratory Rate [Back] Respiratory Rate [ Generalized] Blood Pressure 154/100 154/100 150/104 Blood Pressure [Left] O2 Sat by Pulse Oximetry 03/13/20 03/13/20 03/13/20 09:38 09:39 09:40 Temperature Pulse Rate 109 H 108 H 108 H Respiratory Rate Respiratory Rate [Back] Respiratory Rate [ Generalized] Blood Pressure 148/108 144/104 146/105 Blood Pressure [Left] O2 Sat by Pulse Oximetry 03/13/20 03/13/20 03/13/20 11:15 11:18 11:20 Temperature Pulse Rate 94 H 90 Respiratory Rate Respiratory Rate [Back] Respiratory Rate [ Generalized] Blood Pressure 151/67 151/97 Blood Pressure [Left] O2 Sat by Pulse Oximetry - Labs CBC & Chem 7: 03/13/20 07:12 03/13/20 07:12 Labs: Abnormal lab results 03/12/20 03/12/20 03/12/20 Range/Units 13:36 13:36 13:36 WBC 3.1 L (4.5-11.0) K/mm3 RBC 2.96 L (3.65-5.03) M/mm3 Hgb 8.8 L (10.1-14.3) gm/dl Hct 27.0 L (30.3-42.9) % RDW 16.8 H (13.2-15.2) % [place] % (Auto) 11.2 H (0.0-7.3) % Lymph # 0.8 L (1.2-5.4) K/mm3 Seg Neutrophils % (40.0-70.0) % INR 1.14 H (0.87-1.13) Sodium 135 L (137-145) mmol/L Chloride 97.0 L (98-107) mmol/L BUN (7-17) mg/dL Creatinine 4.8 H (0.7-1.2) mg/dL ALT < 5 L (7-56) units/L Troponin T 0.310 H* (0.00-0.029) ng/mL Albumin 3.5 L (3.9-5) g/dL LDL Cholesterol Direct 40 L (50-130) mg/dL 03/12/20 03/13/20 03/13/20 Range/Units 17:44 07:12 07:12 WBC 4.2 L (4.5-11.0) K/mm3 RBC 2.92 L (3.65-5.03) M/mm3 Hgb 8.5 L (10.1-14.3) gm/dl Hct 26.9 L (30.3-42.9) % RDW 16.7 H (13.2-15.2) % [place] % (Auto) 11.3 H (0.0-7.3) % Lymph # 0.6 L (1.2-5.4) K/mm3 Seg Neutrophils % 71.9 H (40.0-70.0) % INR (0.87-1.13) Sodium 133 L (137-145) mmol/L Chloride 95.8 L (98-107) mmol/L BUN 20 H (7-17) mg/dL Creatinine 6.1 H (0.7-1.2) mg/dL ALT < 5 L (7-56) units/L Troponin T 0.285 H* (0.00-0.029) ng/mL Albumin 3.3 L (3.9-5) g/dL LDL Cholesterol Direct (50-130) mg/dL HEART Score - HEART Score EKG: Normal Age: < 45 Risk factors: 1-2 risk factors Troponin: Troponin T 0.285 ng/mL (0.00-0.029) H* 03/12/20 17:44 Troponin: > 3x normal limit - Critical Actions Critical Actions: 0-3 pts:0.9-1.7%risk of adverse cardiac event.Candidate for discharge
--- NOTE | 2020-03-13 13:06 | Treadmill Report ---
THALLIUM STRESS TEST LEFT VENTRICLE: Left ventricular chamber size is within normal spread. Perfusion study demonstrates homogeneous uptake of the tracer in all segments, no significant defects identified. Gated analysis demonstrates normal left ventricular systolic function, ejection fraction 52%. CONCLUSION: Normal myocardial perfusion study. JOB# [id number] CA/NTS
--- NOTE | 2020-03-13 17:00 | Discharge Summary ---
Providers - Providers Date of Admission: 03/12/20 15:17 Date of discharge: 03/13/20 Attending physician: RADHA OCASIO Primary care physician: NEWSPAPER STUFFER Hospitalization Condition: Good Hospital course: 30-year-old -[place] female with multiple medical problems including end-stage renal disease, lupus, asthma/COPD, hypertension and seizure disorder came to the ED with a complain of midsternal chest pain associated with shortness of breath and dizziness since morning. Patient follows with Dr. Karlene Macedo for renal issues. Patient was recently admitted for chest pain and rule out COVID which was ruled out. Patient Has a History of Left heart cath in 2018 which showed normal coronaries. Patient had a negative Lexiscan on 03/06/2018. Patient was supposed to have a Lexiscan in January 2020 which did not happen. Hospital day 2 and day of discharge: Lexiscan repeated and was normal. - Patient Problems (1) Acute chest pain Elevated troponin at admission likely secondary to CKD on HD Lexiscan negative in 2018, cardiac cath negative in 2017. Repeated Lexiscan was normal 03/13/2020 (2) Uncontrolled hypertension Current Visit: Yes Status: Acute Plan to address problem: Increased Clonidine 0.3 TID for better BP control Resume home medication of labetalol, valsartan, nifedipine, and lasix (3) ESRD (end stage renal disease) on dialysis Current Visit: Yes Status: Chronic Plan to address problem: Continue hemodialysis as per schedule Resume care with outpatient neurologist (4) Seizure disorder Current Visit: No Status: Chronic Plan to address problem: Continue Keppra, Dilantin (6) Lupus (systemic lupus erythematosus) Current Visit: Yes Status: Chronic Qualifiers: Systemic lupus erythematosus type: unspecified Plan to address problem: Continue Plaquenil Disposition: DC-01 TO HOME OR SELFCARE Time spent for discharge: 35 - Discharge Diagnoses (1) Uncontrolled hypertension Status: Acute (2) ESRD (end stage renal disease) on dialysis Status: Chronic (3) Lupus (systemic lupus erythematosus) Status: Chronic Qualifiers: Systemic lupus erythematosus type: unspecified Core Measure Documentation - Palliative Care Palliative Care/ Comfort Measures: Not Applicable - Core Measures Any of the following diagnoses?: none Exam - Constitutional Vitals: Temp Pulse Resp BP Pulse Ox 98.7 F 87 20 151/97 94 03/13/20 08:00 03/13/20 16:01 03/13/20 13:42 03/13/20 11:20 03/13/20 08:00 General appearance: Present: no acute distress - EENT Eyes: Present: PERRL, EOM intact ENT: hearing intact - Neck Neck: Present: normal ROM - Respiratory Respiratory effort: normal Respiratory: bilateral: CTA - Cardiovascular Rhythm: regular Heart Sounds: Present: S1 & S2 - Extremities Extremities: no ischemia, pulses intact, pulses symmetrical, No edema, normal temperature, normal color - Abdominal General gastrointestinal: Present: soft, non-tender, normal bowel sounds - Integumentary Integumentary: Present: warm - Musculoskeletal Musculoskeletal: strength equal bilaterally - Psychiatric Psychiatric: cooperative - Neurologic Neurologic: CNII-XII intact, no focal deficits, moves all extremities - Allied Health Allied health notes reviewed: nursing Plan Activity: no restrictions Diet: renal Follow up with: PRIMARY CARE, [Primary Care Provider] - 3-5 Days Prescriptions: RX: Clonidine HCl [Catapres] 0.3 mg PO Q8H #90 RX: oxyCODONE /ACETAMINOPHEN [Percocet 5/325 mg] 1 tab PO Q6H PRN #10 tablet PRN Reason: Pain, Moderate (4-6)
== END 2020-03-14 02:00 | disposition home or self-care (01) ==
LOC: ED 11:39 → 4A 15:17
PROVIDERS: ADMIT Internal Medicine; ATTEND Internal Medicine
DX: R07.89 Other chest pain (principal); I13.2 Hypertensive heart and chronic kidney disease with heart failure and with stage 5 chronic kidney disease, or end stage renal disease; E11.22 Type 2 diabetes mellitus with diabetic chronic kidney disease; N18.6 End stage renal disease; I50.9 Heart failure, unspecified; G40.909 Epilepsy, unspecified, not intractable, without status epilepticus; M32.9 Systemic lupus erythematosus, unspecified; M19.90 Unspecified osteoarthritis, unspecified site; G43.909 Migraine, unspecified, not intractable, without status migrainosus; J44.9 Chronic obstructive pulmonary disease, unspecified; Z71.6 Tobacco abuse counseling; Z99.2 Dependence on renal dialysis; Z79.51 Long term (current) use of inhaled steroids; Z79.899 Other long term (current) drug therapy; Z88.5 Allergy status to narcotic agent; Z88.8 Allergy status to other drugs, medicaments and biological substances
CPT/HCPCS: 36415; 71045; 78452; 80053; 80061; 84484; 85025; 85610; 93005; 93017; 94640; 94760; 96372; 96374; 96375; 96376; 99285; 99406; A9502; G0378; J0360; J1170; J1200; J2405; J2785; J3246

== ENCOUNTER 2020-03-26 11:18 | Emergency (ER) | payer MEDICARE ==
[~2020-03-26 11:18] MED LIST: CALCIUM CHLORIDE 1,000 MG/10 ML SYRINGE IV ONE; DEXTROSE 50% IN WATER (25GM) 50 ML VIAL IV ONE; EPINEPHrine 1 MG/10 ML SYRINGE ONE; SODIUM BICARB 8.4% 50 MEQ/50 ML SYRINGE IV ONE
[2020-03-26] MEDS ORDERED: EPINEPHrine 1 MG/10 ML SYRINGE ONE (11:24)
[2020-03-26] MEDS ORDERED: INSULIN REGULAR, HUMAN 100 UNITS/1 ML ONE ×2 (11:27→11:43)
[2020-03-26] MEDS ORDERED: NORepinephrine/NS 4 MG-250 ML 4 MG/250 ML BAG IV ONE (11:36)
--- NOTE | 2020-03-26 12:04 | Emergency Department Report ---
ED CPR HPI - General Stated Complaint: CA Time Seen by Provider: 03/26/20 11:55 - History of Present Illness Initial Comments: Ms. Turner is a 30 years old female with history of end-stage renal disease on hemodialysis. Patient brought to the emergency room via EMS in a full cardiac arrest, CPR in progress. EMS stated that last known time for the patient was 10:30 AM. ACLS protocol initiated by EMS. Patient intubated by EMS with a 7.5 ET tube and received 3 mg of epinephrine in route through the right tibia IO since patient is a difficult stick. Upon arrival to the emergency room, patient ET tube confirmed with good breath sound on both sides. CPR continued. ACLS protocol followed. Assuming possible hyperkalemia, patient immediately received calcium chloride, dextrose 50, insulin and bicarb. Right femoral central vein line placed by me. Patient has a return of circulation for approximately 3 minutes and patient rhythm went back again into PEA. ACLS protocol continued however patient remained into PEA. Patient pronounced at 11:50 AM. Total resuscitation time in the emergency room is 43 minutes. For further information please refer to code sheet. No family available at this moment. Complaint: found unresponsive -: minute(s) (30), hour(s) (10) Place: home Initial Findings in the Field: no pulse, PEA ROSC in the Field: No Associated Injuries: No Treatments Prior to Arrival: intubation, epinephrine mgs # (3) - Related Data Previous Rx's Medication Instructions Recorded Last Taken Type Furosemide [Lasix TAB] 80 mg PO QDAY 30 Days #30 02/15/20 1 Day Ago Rx ~03/11/20 Hydroxychloroquine [Plaquenil] 200 mg PO QDAY 30 Days #30 tablet 02/15/20 1 Day Ago Rx ~03/11/20 Ipratropium/Albuterol Sulfate 1 ampul IH TIDRT #50 ampul.neb 02/15/20 1 Day Ago Rx [DUONEB *Not for PRN Use*] ~03/11/20 Valsartan [Diovan] 160 mg PO BID #60 tablet 02/15/20 1 Day Ago Rx ~03/11/20 hydrALAZINE [Apresoline TAB] 100 mg PO TID #90 tab 02/15/20 1 Day Ago Rx ~03/11/20 levETIRAcetam [Keppra TAB] 500 mg PO BID #60 02/15/20 1 Day Ago Rx ~03/11/20 Clonidine HCl [Catapres] 0.3 mg PO Q8H #90 03/13/20 Unknown Rx Furosemide [Lasix TAB] 80 mg PO QDAY tablet 03/13/20 Unknown Rx Hydroxychloroquine [Plaquenil] 200 mg PO QDAY tablet 03/13/20 Unknown Rx Ipratropium/Albuterol Sulfate 1 ampul IH TIDRT ampul.neb 03/13/20 Unknown Rx [DUONEB *Not for PRN Use*] NIFEdipine XL [Procardia Xl] 60 mg PO Q12HR tablet 03/13/20 Unknown Rx Phenytoin [Dilantin] 100 mg PO Q8HR capsule.er 03/13/20 Unknown Rx Valsartan [Diovan] 160 mg PO BID tablet 03/13/20 Unknown Rx hydrALAZINE [Apresoline TAB] 100 mg PO TID tab 03/13/20 Unknown Rx labetaloL [Labetalol 200mg TAB] 200 mg PO TID tablet 03/13/20 Unknown Rx levETIRAcetam [Keppra TAB] 500 mg PO BID tablet 03/13/20 Unknown Rx oxyCODONE /ACETAMINOPHEN [Percocet 1 tab PO Q6H PRN #10 tablet 03/13/20 Unknown Rx 5/325 mg] Fluconazole [Diflucan TAB] 200 mg PO ONCE #1 tablet 03/22/20 Unknown Rx HYDROcodone/APAP 5-325 [[place] 1 each PO Q6HR PRN #10 tablet 03/22/20 Unknown Rx 5/325] Allergies Allergy/AdvReac Type Severity Reaction Status Date / Time lisinopril Allergy Swelling Verified 01/20/20 15:43 metoprolol Allergy Unknown Verified 01/20/20 15:43 acetaminophen [From Percocet] AdvReac Itching Verified 02/09/20 07:21 oxycodone [From Percocet] AdvReac Itching Verified 02/09/20 07:22 oxycodone HCl [From Percocet] AdvReac Unknown Verified 01/20/20 15:43 ED Review of Systems ROS: Stated complaint: CA Other details as noted in HPI Comment: Unobtainable due to pts medical conditions ED Past Medical Hx - Past Medical History Hx Hypertension: Yes Hx Congestive Heart Failure: Yes Hx Diabetes: Yes Hx Renal Disease: Yes (HD T,THUR,SAT) Hx Arthritis: Yes Hx Headaches / Migraines: Yes Hx Seizures: Yes Hx Asthma: Yes Hx COPD: Yes Hx HIV: No Additional medical history: Lupus - Surgical History Additional Surgical History: RIGHT ARM graft - Social History Smoking Status: Never Smoker Substance Use Type: None - Medications Home Medications: Home Medications Medication Instructions Recorded Confirmed Last Taken Type Furosemide [Lasix TAB] 80 mg PO QDAY 30 Days #30 02/15/20 03/12/20 1 Day Ago Rx ~03/11/20 Hydroxychloroquine [Plaquenil] 200 mg PO QDAY 30 Days #30 tablet 02/15/20 03/12/20 1 Day Ago Rx ~03/11/20 Ipratropium/Albuterol Sulfate 1 ampul IH TIDRT #50 ampul.neb 02/15/20 03/12/20 1 Day Ago Rx [DUONEB *Not for PRN Use*] ~03/11/20 Valsartan [Diovan] 160 mg PO BID #60 tablet 02/15/20 03/12/20 1 Day Ago Rx ~03/11/20 hydrALAZINE [Apresoline TAB] 100 mg PO TID #90 tab 02/15/20 03/12/20 1 Day Ago Rx ~03/11/20 levETIRAcetam [Keppra TAB] 500 mg PO BID #60 02/15/20 03/12/20 1 Day Ago Rx ~03/11/20 Clonidine HCl [Catapres] 0.3 mg PO Q8H #90 03/13/20 Unknown Rx Furosemide [Lasix TAB] 80 mg PO QDAY tablet 03/13/20 Unknown Rx Hydroxychloroquine [Plaquenil] 200 mg PO QDAY tablet 03/13/20 Unknown Rx Ipratropium/Albuterol Sulfate 1 ampul IH TIDRT ampul.neb 03/13/20 Unknown Rx [DUONEB *Not for PRN Use*] NIFEdipine XL [Procardia Xl] 60 mg PO Q12HR tablet 03/13/20 Unknown Rx Phenytoin [Dilantin] 100 mg PO Q8HR capsule.er 03/13/20 Unknown Rx Valsartan [Diovan] 160 mg PO BID tablet 03/13/20 Unknown Rx hydrALAZINE [Apresoline TAB] 100 mg PO TID tab 03/13/20 Unknown Rx labetaloL [Labetalol 200mg TAB] 200 mg PO TID tablet 03/13/20 Unknown Rx levETIRAcetam [Keppra TAB] 500 mg PO BID tablet 03/13/20 Unknown Rx oxyCODONE /ACETAMINOPHEN [Percocet 1 tab PO Q6H PRN #10 tablet 03/13/20 Unknown Rx 5/325 mg] Fluconazole [Diflucan TAB] 200 mg PO ONCE #1 tablet 03/22/20 Unknown Rx HYDROcodone/APAP 5-325 [[place] 1 each PO Q6HR PRN #10 tablet 03/22/20 Unknown Rx 5/325] ED Physical Exam - General General appearance: other (CPR in progress) - Head Head exam: Present: atraumatic, normocephalic, normal inspection - Eye Pupils: Present: other (5 mm dilated and fixed.) - ENT ENT exam: Present: normal exam - Neck Neck exam: Present: normal inspection - Respiratory Respiratory exam: Present: other (No spontaneous breathing) - Cardiovascular Cardiovascular Exam: Present: other (No spontaneous heart tone) - GI/Abdominal GI/Abdominal exam: Present: soft. Absent: distended - Neurological Exam Neurological exam: Present: other (CPR in progress) - Skin Skin exam: Present: warm, intact, normal color ED Course - Reevaluation(s) Reevaluation #1: 03/26/20 13:08 Patient family arrived to the emergency room. Ms. Turner mother, father and grand mother. Mother stated that she lived with her father who stated that the last time he saw her was Friday. Mother stated that the last time she saw her Friday also. Mother also stated that she is not sure if she went for dialysis on or Friday or not. - Central Line Placement Right Femoral Consent Obtained: emergent situation Time Out Performed: Yes MD Prep: mask, gown Central Line Prep: Povidone-Iodine 1%, Chlorhexidine scrub, sterile drapes applied Ultrasound Used for Placement: Yes Central Line Lumen Inserted: triple Central Line Position: good blood return, all ports aspirated, flus, sutured in place with 2-0 Dressing Applied: Tegaderm, sterile gauze/tape Patient Tolerated Procedure: well, no complications ED Medical Decision Making - Medical Decision Making Ms. Turner is a 30 years old female with history of end-stage renal disease on hemodialysis. Patient brought to the emergency room via EMS in a full cardiac arrest, CPR in progress. EMS stated that last known time for the patient was 10:30 AM. ACLS protocol initiated by EMS. Patient intubated by EMS with a 7.5 ET tube and received 3 mg of epinephrine in route through the right tibia IO since patient is a difficult stick. Upon arrival to the emergency room, patient ET tube confirmed with good breath sound on both sides. CPR continued. ACLS protocol followed. Assuming possible hyperkalemia, patient immediately received calcium chloride, dextrose 50, insulin and bicarb. Right femoral central vein line placed by me. Patient has a return of circulation for approximately 3 minutes and patient rhythm went back again into PEA. ACLS protocol continued however patient remained into PEA. Patient pronounced at 11:50 AM. Total resuscitation time in the emergency room is 43 minutes. For further information please refer to code sheet. Critical Care Time: Yes Critical care time in (mins) excluding proc time.: 50 Critical care attestation.: If time is entered above; I have spent that time in minutes in the direct care of this critically ill patient, excluding procedure time. ED Disposition Clinical Impression: Cardiopulmonary arrest Disposition: DC-20 Is pt being admited?: No Condition: Stable Referrals: PRIMARY CARE, [Primary Care Provider] - 3-5 Days
== END 2020-03-26 14:21 ==
LOC: ED 11:18
DX: I46.9 Cardiac arrest, cause unspecified (principal)
CPT/HCPCS: 36556; 82962; 92950; 99291; J0171; J1815